=== PATIENT | female | born 1985 | race African-American/Black ===

== ENCOUNTER 2016-10-27 10:18 | Inpatient (IN) | payer MEDICAID ==
[2016-10-27] MEDS ORDERED: PEPCID 20 MG IV PREMIX* 20 MG/50 ML BAG IV SCH (11:00)
[2016-10-27] MEDS: PROTONIX TAB 40 MG PO SCH (11:20)
[2016-10-27] MEDS: NS 1000 ML 1,000 ML IV SCH ×2 (11:20→18:45)
[2016-10-27] MEDS: DILAUDID INJ IVP PRN ×3 (11:21→19:37)
[2016-10-27 11:34] LABS: BASOPHILS # (AUTO) 0.1 X10^3/uL (0.0-0.1); BASOPHILS % (AUTO) 0.5 % (0.2-1.0); EOSINOPHILS % (AUTO) 0.2 % (0.9-2.9); HEMATOCRIT 36.3 % (36.0-47.0); HEMOGLOBIN 12.2 g/dL (12.0-16.0); LYMPHOCYTES # (AUTO) 1.5 X10^3/uL (1.3-2.9); LYMPHOCYTES % (AUTO) 11.1 % (21.0-51.0); MEAN CORPUSCULAR HEMOGLOBIN 28.3 pg (27.0-34.0); MEAN CORPUSCULAR HGB CONC 33.6 g/dL (33.0-35.0); MEAN CORPUSCULAR VOLUME 84.3 fL (80.0-100.0); MEAN PLATELET VOLUME 9.6 fL (7.4-11.0); MONOCYTES # (AUTO) 0.4 x10^3/uL (0.3-0.8); MONOCYTES % (AUTO) 2.8 % (0.0-13.0); NEUTROPHILS # (AUTO) 11.7 x10^3/uL (2.2-4.8); NEUTROPHILS % (AUTO) 85.4 % (42.0-75.0); PLATELET COUNT 339 X10^3/uL (150.0-450.0); RED BLOOD COUNT 4.31 X10^6/uL (3.5-5.4); RED CELL DISTRIBUTION WIDTH 14.4 % (11.6-16.5); WHITE BLOOD COUNT 13.6 X10^3/uL (3.6-10.0)
[2016-10-27 11:46] LABS: ALANINE AMINOTRANSFERASE 36 Units/L (12-78); ALKALINE PHOSPHATASE 123 Units/L (46-116); AMYLASE 89 Units/L (25-115); ASPARTATE AMINO TRANSFERASE 15 Units/L (15-37); BLOOD UREA NITROGEN 37 mg/dL (7-18); CALCIUM 10.1 mg/dL (8.5-10.1); CARBON DIOXIDE 35.2 mmol/L (21-32); CHLORIDE 95 mmol/L (98-107); COR NA(FOR HYPERGLY) 141 mmol/L (136-145); CREATININE 2.26 mg/dL (0.55-1.02); GLUCOSE 389 mg/dL (65-99); LIPASE 415 Units/L (73-393); SODIUM 134 mmol/L (136-145); TOTAL PROTEIN 8.8 g/dL (6.4-8.2); eGFR BLACK RACES 32 (>60); eGFR NON BLACK RACES 27 (>60)
[2016-10-27 11:50] VITALS: BMI 31.5
[2016-10-27 12:05] LABS: HEMOGLOBIN A1C 8.9 % (4.5-6.2)
[2016-10-27] MEDS: HumuLIN R SC PRN ×3 (12:19→21:08)
[2016-10-27] MEDS: ZOFRAN INJ 4 MG VIAL IVP PRN (15:30)
[2016-10-27 18:34] LABS: BILIRUBIN,URINE NEGATIVE (NEGATIVE); BLOOD/HEMOGLOBIN,URINE 5+ (NEGATIVE); GLUCOSE, URINE 3+ (NEGATIVE); KETONES,URINE NEGATIVE (NEGATIVE); LEUKOCYTE ESTERASE ,URINE 2+ (NEGATIVE); NITRITES,URINE NEGATIVE (NEGATIVE); PROTEIN,URINE 3+ (NEGATIVE); UROBILINOGEN,URINE NORMAL (NORMAL)
[2016-10-27 18:44] LABS: APPEARANCE,URINE SLIGHTLY HAZY (CLEAR); BACTERIA,URINE TRACE /HPF (NEGATIVE); COLOR,URINE BLOODY (YELLOW); RBC,URINE TNTC /HPF (NEGATIVE); SQUAMOUS EPITHELIAL CELL,UR FEW /HPF (NEGATIVE)
[2016-10-28] MEDS: ZOFRAN INJ 4 MG VIAL IVP PRN
[2016-10-28] MEDS: NS 1000 ML 1,000 ML IV SCH ×4 (01:47→23:50)
[2016-10-28] MEDS: DILAUDID INJ IVP PRN ×6 (03:51→23:51)
[2016-10-28] MEDS: HumuLIN R SC PRN ×2 (06:01→11:53)
[2016-10-28] MEDS: PROTONIX TAB 40 MG PO SCH (08:05)
[2016-10-28] MEDS: PEPCID 20 MG IV PREMIX* 20 MG/50 ML BAG IV SCH (08:05)
[2016-10-28 11:13] LABS: BASOPHILS # (AUTO) 0.2 X10^3/uL (0.0-0.1); BASOPHILS % (AUTO) 1.4 % (0.2-1.0); EOSINOPHILS # (AUTO) 0.4 x10^3/uL (0.0-0.2); EOSINOPHILS % (AUTO) 3.2 % (0.9-2.9); HEMATOCRIT 36.2 % (36.0-47.0); HEMOGLOBIN 12.4 g/dL (12.0-16.0); LYMPHOCYTES # (AUTO) 3.3 X10^3/uL (1.3-2.9); LYMPHOCYTES % (AUTO) 29.1 % (21.0-51.0); MEAN CORPUSCULAR HEMOGLOBIN 29.2 pg (27.0-34.0); MEAN CORPUSCULAR HGB CONC 34.3 g/dL (33.0-35.0); MEAN CORPUSCULAR VOLUME 85.2 fL (80.0-100.0); MEAN PLATELET VOLUME 9.4 fL (7.4-11.0); MONOCYTES # (AUTO) 0.5 x10^3/uL (0.3-0.8); MONOCYTES % (AUTO) 4.5 % (0.0-13.0); NEUTROPHILS # (AUTO) 6.9 x10^3/uL (2.2-4.8); NEUTROPHILS % (AUTO) 61.8 % (42.0-75.0); PLATELET COUNT 323 X10^3/uL (150.0-450.0); RED BLOOD COUNT 4.24 X10^6/uL (3.5-5.4); RED CELL DISTRIBUTION WIDTH 14.4 % (11.6-16.5); WHITE BLOOD COUNT 11.2 X10^3/uL (3.6-10.0)
[2016-10-28 11:16] LABS: ALANINE AMINOTRANSFERASE 35 Units/L (12-78); ALBUMIN 3.9 g/dL (3.4-5.0); ALKALINE PHOSPHATASE 117 Units/L (46-116); ASPARTATE AMINO TRANSFERASE 19 Units/L (15-37); BLOOD UREA NITROGEN 23 mg/dL (7-18); CALCIUM 9.8 mg/dL (8.5-10.1); CARBON DIOXIDE 28.4 mmol/L (21-32); CHLORIDE 99 mmol/L (98-107); COR NA(FOR HYPERGLY) 137 mmol/L (136-145); CREATININE 1.75 mg/dL (0.55-1.02); GLUCOSE 181 mg/dL (65-99); SODIUM 135 mmol/L (136-145); TOTAL PROTEIN 8.7 g/dL (6.4-8.2); eGFR BLACK RACES 43 (>60); eGFR NON BLACK RACES 36 (>60)
[2016-10-28] MEDS ORDERED: NORCO 10/325 TAB PO PRN ×3 (11:37→11:42)
[2016-10-28] MEDS ORDERED: PATIENT'S HOME MEDICATION (Ondansetron [Ondansetron Odt] 4 MG) PO PRN (11:37)
[2016-10-28] MEDS ORDERED: ZOFRAN TAB 4 MG PO PRN (11:42)
[2016-10-28] MEDS ORDERED: XANAX PO PRN (11:42)
[2016-10-28] MEDS ORDERED: PATIENT'S HOME MEDICATION (Alprazolam [Alprazolam] 1 MG) PO SCH (11:45)
[2016-10-28] MEDS ORDERED: [UNRECOGNIZED DRUG - REMARK] PO SCH (11:45)
[2016-10-28] MEDS: ZyrTEC TAB 10 MG PO SCH (11:59)
[2016-10-28] MEDS: ZESTRIL TAB 40 MG PO SCH (11:59)
[2016-10-28] MEDS ORDERED: LEVEMIR SC SCH (12:00)
[2016-10-28] MEDS ORDERED: ZANTAC PO SCH (12:00)
--- NOTE | 2016-10-28 17:44 | DR.H&P ---
H&P - History & Physical for Day of: H&P Date: 10/28/16 - Chief Complaint Chief Complaint: N/V ABDOMINAL PAIN, ELEVATED BLOOD SUGAR - Allergies Allergies/Adverse Reactions: Allergies Allergy/AdvReac Type Severity Reaction Status Date / Time Ceftazidime [From Fortaz] Allergy Verified 10/27/16 11:04 Morphine Allergy Verified 10/27/16 11:04 - History of Present Illness History of Present Illness: 31BF ADMITTED FROM DR OSVALDO PALOMINO OFFICE WITH CO ABDOMINAL PAIN AND N/V. PT HAS ELEVATED GLUCOSE. PT IS NON COMPLIANT DIABETIC WITH HX GERD, GASTROPARESIS. PLAN TO ADMIT, IV HYDRATION AND BS CONTROL. WILL REPEAT AM LABS. - Past Medical History Past Medical History: Diabetes, GERD, Hypertension Additional Medical History: MORBID OBESITY - Past Surgical History Surgical History: Cholecystectomy, Hysterectomy, Other - Family History Family Medical History: Diabetes Mellitus, Hypertension - Social History Does patient currently use any type of tobacco product: No Have you used tobacco products in the last 12 months: No Type of Tobacco Use: None Does any household member use tobacco: No Alcohol Use: None Drug Use: None - Medications Home Medications: Alprazolam 1 mg PO BID 10/27/16 [History Confirmed 10/27/16] Cetirizine HCl [All Day Allergy] 10 mg PO DAILY 10/27/16 [History Confirmed 05/03] Hydrocodone-Acet 10/325 mg [[place] 10/325 Tab] 1 tab PO BID PRN 10/27/16 [ History Confirmed 10/27/16] Insulin Detemir (Levemir) [LEVEMIR INSULIN *] 100 units SUBCUT BID 10/27/16 [ History Confirmed 10/27/16] Lisinopril 40 mg PO DAILY 10/27/16 [History Confirmed 10/27/16] Ondansetron [Ondansetron Odt] 4 mg PO Q6H PRN 10/27/16 [History Confirmed ] Ranitidine HCl [Ranitidine [address]] 300 mg PO BID 10/27/16 [History Confirmed 10/27/16] Zolpidem Tartrate 10 mg PO HS 10/27/16 [History Confirmed 10/27/16] - Review of Systems Constitutional: Weakness Eyes: No Symptoms Reported ENT: No Symptoms Reported Respiratory: No Symptoms Reported Cardiovascular: No Symptoms Reported Gastrointestinal: Nausea, Abdominal Pain Genitourinary: No Symptoms Reported Musculoskeletal: No Symptoms Reported Skin: No Symptoms Reported Neurological: No Symptoms Reported - Physical Exam Vital Signs: Temperature 97.9 F Pulse Rate [Right Brachial] 100 Pulse Rate [Bilateral Radial] 103 Respiratory Rate 20 Blood Pressure [Right Arm] 176/99 Blood Pressure [Left Arm] 154/84 O2 Sat by Pulse Oximetry 99 Oriented: Normal Eyes: Normal Ear: Normal Nose: Normal Throat: Normal Respiratory: Clear Throughout Cardiovascular: Normal : Normal Auscultation: Bowel Sounds: Normal Tenderness: Epigastric Skin: Normal Musculoskeletal: Normal Psychiatric: Normal Speech Pattern: Clear, Appropriate - Assessment/Plan (1) Abdominal pain Qualifiers: Abdominal location: A Status: Acute Plan: ADMIT, IV HYDRATION, BLOOD SUGAR CONTROL. PPI THERAPY, NAUSEA CONTROL. REPEAT AM LABS (2) Uncontrolled diabetes mellitus Qualifiers: Diabetes mellitus type: D Diabetes mellitus complication status: D Diabetes mellitus complication detail: D Diabetic retinopathy severity: D Proliferative retinopathy type: P Diabetes mellitus macular edema: D Diabetes mellitus long term care pharmacist insulin use: D Laterality: L Chronic kidney disease stage: C Status: Acute (3) Nausea & vomiting Qualifiers: Vomiting type: V Vomiting Intractability: V Status: Acute
--- NOTE | 2016-10-28 17:47 | PCM.PROG ---
Progress Note - Progress Note for Day of Date: 10/28/16 - Subjective Subjective: CONTINUE CO EPIGASTRIC PAIN AND NAUSEA. NPO DUE TO MILD PANCREATITIS, PAIN AND NAUSEA CONTROL. REPEAT AM LABS - Past Medical Family Social History Past Med/Fam/Surg Hx: No changes since H&P Allergies: Allergies Ceftazidime [From Fortaz] Allergy (Verified 10/27/16 11:04) Morphine Allergy (Verified 10/27/16 11:04) - Review of Systems ROS: No change since H&P - Vital Signs and I&O's Vital Signs: Temperature 97.9 F Pulse Rate [Right Brachial] 100 Pulse Rate [Bilateral Radial] 103 Respiratory Rate 20 Blood Pressure [Right Arm] 176/99 Blood Pressure [Left Arm] 154/84 O2 Sat by Pulse Oximetry 99 Intake and Output: Intake & Output 10/26/16 10/27/16 10/28/16 10/29/16 11:59 11:59 11:59 11:59 Intake Total 4215 1380 Balance 4215 1380 - Physical Exam Oriented: Normal Eyes: Normal Ear: Normal Nose: Normal Throat: Normal Cardiovascular: Normal : Normal Auscultation: Bowel Sounds: Normal Tenderness: Epigastric Skin: Normal Musculoskeletal: Normal Psychiatric: Normal Speech Pattern: Clear, Appropriate - Laboratory and Diagnostics Result Diagrams: 10/28/16 11:00 10/28/16 11:00 Labs: 10/27/16 18:26 Urine,Clean Catch Urine Culture - Preliminary Laboratory WBC 11.2 X10^3/uL (3.6-10.0) H 10/28/16 11:00 RBC 4.24 X10^6/uL (3.5-5.4) 10/28/16 11:00 Hgb 12.4 g/dL (12.0-16.0) 10/28/16 11:00 Hct 36.2 % (36.0-47.0) 10/28/16 11:00 MCV 85.2 fL (80.0-100.0) 10/28/16 11:00 MCH 29.2 pg (27.0-34.0) 10/28/16 11:00 MCHC 34.3 g/dL (33.0-35.0) 10/28/16 11:00 RDW 14.4 % (11.6-16.5) 10/28/16 11:00 Plt Count 323 X10^3/uL (150.0-450.0) 10/28/16 11:00 MPV 9.4 fL (7.4-11.0) 10/28/16 11:00 Neut % 61.8 % (42.0-75.0) 10/28/16 11:00 Lymph % 29.1 % (21.0-51.0) 10/28/16 11:00 [place] % 4.5 % (0.0-13.0) 10/28/16 11:00 Eos % 3.2 % (0.9-2.9) H 10/28/16 11:00 Baso % 1.4 % (0.2-1.0) H 10/28/16 11:00 Neut # 6.9 x10^3/uL (2.2-4.8) H 10/28/16 11:00 Lymph # 3.3 X10^3/uL (1.3-2.9) H 10/28/16 11:00 [place] # 0.5 x10^3/uL (0.3-0.8) 10/28/16 11:00 Eos # 0.4 x10^3/uL (0.0-0.2) H 10/28/16 11:00 Baso # 0.2 X10^3/uL (0.0-0.1) H 10/28/16 11:00 Absolute Nucleated RBC 0.0 /100WBC 10/28/16 11:00 Sodium 135 mmol/L (136-145) L 10/28/16 11:00 Corrected Sodium 137 mmol/L (136-145) 10/28/16 11:00 Potassium 4.0 mmol/L (3.5-5.1) 10/28/16 11:00 Chloride 99 mmol/L (98-107) 10/28/16 11:00 Carbon Dioxide 28.4 mmol/L (21-32) 10/28/16 11:00 BUN 23 mg/dL (7-18) H 10/28/16 11:00 Creatinine 1.75 mg/dL (0.55-1.02) H 10/28/16 11:00 Est GFR (MDRD) Af Amer 43 (>60) L 10/28/16 11:00 Est GFR (MDRD) Non-Af 36 (>60) L 10/28/16 11:00 Glucose 181 mg/dL (65-99) H 10/28/16 11:00 Hemoglobin A1c 8.9 % (4.5-6.2) H 10/27/16 11:23 Calcium 9.8 mg/dL (8.5-10.1) 10/28/16 11:00 Corrected Calcium TNP 10/28/16 11:00 Total Bilirubin 0.40 mg/dL (0.2-1.0) 10/28/16 11:00 AST 19 Units/L (15-37) 10/28/16 11:00 ALT 35 Units/L (12-78) 10/28/16 11:00 Alkaline Phosphatase 117 Units/L (46-116) H 10/28/16 11:00 Total Protein 8.7 g/dL (6.4-8.2) H 10/28/16 11:00 Albumin 3.9 g/dL (3.4-5.0) 10/28/16 11:00 Globulin 4.8 g/dL (2.5-4.5) H 10/28/16 11:00 Albumin/Globulin Ratio 0.8 Ratio (1.1-2.1) L 10/28/16 11:00 Amylase 89 Units/L (25-115) 10/27/16 11:23 Lipase 415 Units/L (73-393) H 10/27/16 11:23 Specimen Type Clean catch urine 10/27/16 18:26 Urine Color Bloody (YELLOW) 10/27/16 18:26 Urine Appearance Slightly hazy (CLEAR) 10/27/16 18:26 Urine pH 8.0 (5.0 - 8.0) 10/27/16 18:26 Ur Specific [place] 1.015 (1.000-1.030) 10/27/16 18:26 Urine Protein 3+ (NEGATIVE) 10/27/16 18:26 Urine Glucose (UA) 3+ (NEGATIVE) 10/27/16 18:26 Urine Ketones Negative (NEGATIVE) 10/27/16 18:26 Urine Occult Blood 5+ (NEGATIVE) 10/27/16 18:26 Urine Nitrite Negative (NEGATIVE) 10/27/16 18:26 Urine Bilirubin Negative (NEGATIVE) 10/27/16 18:26 Urine Urobilinogen Normal (NORMAL) 10/27/16 18:26 Ur Leukocyte Esterase 2+ (NEGATIVE) 10/27/16 18:26 Urine RBC Tntc /HPF (NEGATIVE) 10/27/16 18:26 Urine WBC 3-4 /HPF (NEGATIVE) 10/27/16 18:26 Ur Squamous Epith Cells Few /HPF (NEGATIVE) 10/27/16 18:26 Urine Bacteria Trace /HPF (NEGATIVE) 10/27/16 18:26 Ur Culture Indicated? Yes/culture set up 10/27/16 18:26 - Plan (1) Abdominal pain Status: Acute Qualifiers: Abdominal location: A Plan: ADMIT, IV HYDRATION, BLOOD SUGAR CONTROL. PPI THERAPY, NAUSEA CONTROL. REPEAT AM LABS (2) Uncontrolled diabetes mellitus Status: Acute Qualifiers: Diabetes mellitus type: D Diabetes mellitus complication status: D Diabetes mellitus complication detail: D Diabetic retinopathy severity: D Proliferative retinopathy type: P Diabetes mellitus macular edema: D Diabetes mellitus custodial insulin use: D Laterality: L Chronic kidney disease stage: C (3) Nausea & vomiting Status: Acute Qualifiers: Vomiting type: V Vomiting Intractability: V Plan: NPO, IN HYDRATION. BS CONTROL, REPEAT AM LABS (4) Acute pancreatitis Status: Acute Qualifiers: Pancreatitis type: P Acute pancreatitis complication: A
[2016-10-28] MEDS ORDERED: SNACK - Diabetic Appropriate PO SCH ×2 (20:00)
[2016-10-28] MEDS ORDERED: AMBIEN PO SCH (21:00)
[2016-10-29] MEDS: NS 1000 ML 1,000 ML IV SCH (05:43)
[2016-10-29] MEDS: DILAUDID INJ IVP PRN (05:52)
--- NOTE | 2016-10-29 06:37 | RAD ---
HISTORY: Abdominal pain common nausea, vomiting Study: Acute abdominal series Comparison: none Findings: The trachea is midline. The cardiac silhouette is unremarkable. The lungs are clear without focal infiltrate or effusion. The bony thorax is unremarkable. There is a port present on the left. Flat plate and upright evaluation of the abdomen demonstrates a normal bowel gas pattern. No pneumop eritoneum is identified.. No pathological soft tissue mass or calcification can be observed. The b roberto structures are grossly intact. IMPRESSION: 1. No acute cardiopulmonary disease. 2. No evidence for acute abdominal pathology identified. Reported By:
[2016-10-29 06:45] LABS: CALCIUM 8.6 mg/dL (8.5-10.1); CARBON DIOXIDE 26.1 mmol/L (21-32); COR CA(FOR HYPOALB) 9.4 mg/dL (8.5-10.1); CREATININE 1.44 mg/dL (0.55-1.02); TOTAL PROTEIN 6.9 g/dL (6.4-8.2)
[2016-10-29 06:54] LABS: BASOPHILS # (AUTO) 0.1 X10^3/uL (0.0-0.1); BASOPHILS % (AUTO) 0.6 % (0.2-1.0); EOSINOPHILS # (AUTO) 0.4 x10^3/uL (0.0-0.2); EOSINOPHILS % (AUTO) 3.9 % (0.9-2.9); HEMOGLOBIN 10.3 g/dL (12.0-16.0); LYMPHOCYTES # (AUTO) 3.9 X10^3/uL (1.3-2.9); LYMPHOCYTES % (AUTO) 36.1 % (21.0-51.0); MEAN CORPUSCULAR HEMOGLOBIN 28.3 pg (27.0-34.0); MEAN CORPUSCULAR HGB CONC 33.4 g/dL (33.0-35.0); MEAN CORPUSCULAR VOLUME 84.7 fL (80.0-100.0); MEAN PLATELET VOLUME 9.7 fL (7.4-11.0); MONOCYTES # (AUTO) 0.7 x10^3/uL (0.3-0.8); MONOCYTES % (AUTO) 6.6 % (0.0-13.0); NEUTROPHILS # (AUTO) 5.7 x10^3/uL (2.2-4.8); NEUTROPHILS % (AUTO) 52.8 % (42.0-75.0); PLATELET COUNT 299 X10^3/uL (150.0-450.0); RED BLOOD COUNT 3.66 X10^6/uL (3.5-5.4); RED CELL DISTRIBUTION WIDTH 14.2 % (11.6-16.5); WHITE BLOOD COUNT 10.8 X10^3/uL (3.6-10.0)
[2016-10-29] MEDS ORDERED: LEVEMIR SC SCH ×2 (09:00)
[2016-10-29] MEDS: ZESTRIL TAB 40 MG PO SCH (10:22)
[2016-10-29] MEDS: PROTONIX TAB 40 MG PO SCH (10:22)
[2016-10-29] MEDS: ZyrTEC TAB 10 MG PO SCH (10:23)
[2016-10-29] MEDS: PEPCID 20 MG IV PREMIX* 20 MG/50 ML BAG IV SCH (10:30)
[2016-10-29 12:04] VITALS: BP 140/81
[2016-10-29] MEDS: HumuLIN R SC PRN (12:24)
== END 2016-10-29 12:30 | disposition left against medical advice (07) | DRG 391 ==
LOC: MED/SURG 10:18 → OBSVTOIN 10-28 09:00
PROVIDERS: ADMIT Internal Medicine; ATTEND Internal Medicine
DX: R11.2 Nausea with vomiting, unspecified (principal); R10.84 Generalized abdominal pain; I10 Essential (primary) hypertension; K21.9 Gastro-esophageal reflux disease without esophagitis; K31.84 Gastroparesis; K85.80 Other acute pancreatitis without necrosis or infection; R94.4 Abnormal results of kidney function studies; E11.65 Type 2 diabetes mellitus with hyperglycemia
CPT/HCPCS: 36415; 74022; 80053; 81001; 82150; 83036; 83690; 85025; 87086; A4222; S0028; 1956; G0378; J1815; J2405

== ENCOUNTER 2017-03-27 15:12 | Inpatient (IN) | payer MEDICAID ==
[2017-03-27] MEDS ORDERED: NS 1000 ML 1,000 ML IV ONE (15:26)
[2017-03-27] MEDS ORDERED: ZOFRAN INJ 4 MG VIAL IVP ONE (15:27)
[2017-03-27] MEDS ORDERED: DILAUDID INJ IVP ONE ×2 (15:28→17:04)
[2017-03-27] MEDS ORDERED: PROTAMINE SULFATE IVP ONE (15:29)
[2017-03-27] MEDS ORDERED: PROTONIX INJ 40 MG VIAL IVP ONE (15:30)
[2017-03-27] MEDS ORDERED: DILAUDID INJ ONE ×2 (15:31→17:08)
[2017-03-27] MEDS ORDERED: ZOFRAN INJ 4 MG VIAL ONE (15:32)
[2017-03-27] MEDS ORDERED: NS 1000 ML 1,000 ML ONE (15:32)
--- NOTE | 2017-03-27 15:38 | DR.GENAD ---
HPI - PCP Primary Care Physician: NFD - Complaint/Symptoms Chief Complaint Doctors Comments: Patietn with a history of gastroparesis. She states that she is unable to tolerate anything due to the vomiting. She denies fever or diarrhea. Onset of the stomach pain this AM. The pain is sharp, crampy, made worse with PO intake, very severe. Chief Complaint:: PT C/O ABD PAIN WITH N/V THAT STARTED THIS AM. PT STATES SHE HAS THROWN UP APPROX 20 TIMES - Source History Provided: Patient - Mode of Arrival Mode of Arrival: Ambulatory - Timing Onset of Chief Complaint: 03/27/17 PMH - PMH Past Medical History: Yes Past Medical History: Diabetes, GERD, Hypertension Past Medical History Comment: GASTROPARESIS Past Surgical History: Yes Surgical History: Cholecystectomy, Hysterectomy, Other Past Surgical History Comment: LEG - Family History History of Family Medical Conditions: Yes Family Medical History: Diabetes Mellitus, Hypertension - Social History Does patient currently use any type of tobacco product: No Have you used tobacco products in the last 12 months: No Type of Tobacco Use: None Alcohol Use: None Do you use any recreational Drugs:: No Lives With: Family Lives Where: Home - infectious screening In the last 2 months have you had wt loss of >10#?: NO Have you had fever, night sweats or hemotysis?: No Have you traveled outside the country in the last 6 months?: No Isolation: Standard ROS - Review of Systems Constitutional: negative: Diaphoresis Eyes: No Symptoms Reported ENTM: No Symptoms Reported Respiratoy: No Symptoms Reported Cardiovascular: No Symptoms Reported Gastrointestinal/Abdominal: No Symptoms Reported Genitourinary: No Symptoms Reported Neurological: No Symptoms Reported Musculoskeletal: No Symptoms Reported Integumentary: No Symptoms Reported Hematologic/Lymphatic: No Symptoms Reported Endocrine: No Symptoms Reported Psychiatric: No Symptoms Reported All Other Systems: Reviewed and Negative PE - Vital Signs Vitals: Temperature 98.2 F Pulse Rate 134 Respiratory Rate 22 Blood Pressure [Right Arm] 140/81 Blood Pressure [Left Arm] 139/68 Blood Pressure 123/99 O2 Sat by Pulse Oximetry 99 - General Limitations: No Limitations General Appearance: Alert, In No Apparent Distress, In Distress (abdominal pain) - Head Head Exam: Normal Inspection, Atraumatic - Eyes Eye exam: Normal Appearance, PERRL, EOMI - ENT ENT Exam: Normal Exam External Ear Exam: Normal External Inspection TM/Canal Exam: Bilateral Normal Nose Exam: Normal Nose Exam Mouth Exam: Normal Inspection Throat Exam: Normal Inspection - Neck Neck Exam: Normal Inspection, Full ROM - Chest Chest Inspection: Normal Inspection, Symmetric Chest Wall Rise - Respiratory Respiratory Exam: Normal Lung Sounds Bilat Respiratory Exam: Bilateral Clear to Auscultation - Cardiovascular Cardiovascular Exam: Regular Rate, Normal Rhythm - Abdominal Exam Abdominal Exam: Normal Inspection, Normal Bowel Sounds, Soft Abdominal Tenderness: Diffuse - Extremities Extremities Exam: Normal Inspection, Full ROM - Back Back Exam: Normal Inspection, Full ROM - Neurologic Neurological Exam: Alert, Oriented X3, CN II-XII Intact - Psychiatric Psychiatric Exam: Normal Affect, Normal Mood - Skin Skin Exam: Warm, Dry, Intact Course - Reevaluation 1st: Improved - Consultation Called: 16:40 (Dr Sherwood agreed to admit for further treamtnet ) - Education/Counseling Educated On: Treatment, Prognosis ROR - Labs Reviewed Result Diagrams: 03/27/17 15:55 03/27/17 15:55 Laboratory: WBC 9.7 X10^3/uL (3.6-10.0) 03/27/17 15:55 RBC 4.09 X10^6/uL (3.5-5.4) 03/27/17 15:55 Hgb 11.3 g/dL (12.0-16.0) L 03/27/17 15:55 Hct 34.0 % (36.0-47.0) L 03/27/17 15:55 MCV 83.0 fL (80.0-100.0) 03/27/17 15:55 MCH 27.7 pg (27.0-34.0) 03/27/17 15:55 MCHC 33.4 g/dL (33.0-35.0) 03/27/17 15:55 RDW 14.6 % (11.6-16.5) 03/27/17 15:55 Plt Count 356 X10^3/uL (150.0-450.0) 03/27/17 15:55 MPV 8.8 fL (7.4-11.0) 03/27/17 15:55 Neut % 64.0 % (42.0-75.0) 03/27/17 15:55 Lymph % 26.6 % (21.0-51.0) 03/27/17 15:55 [place] % 6.3 % (0.0-13.0) 03/27/17 15:55 Eos % 2.3 % (0.9-2.9) 03/27/17 15:55 Baso % 0.8 % (0.2-1.0) 03/27/17 15:55 Neut # 6.2 x10^3/uL (2.2-4.8) H 03/27/17 15:55 Lymph # 2.6 X10^3/uL (1.3-2.9) 03/27/17 15:55 [place] # 0.6 x10^3/uL (0.3-0.8) 03/27/17 15:55 Eos # 0.2 x10^3/uL (0.0-0.2) 03/27/17 15:55 Baso # 0.1 X10^3/uL (0.0-0.1) 03/27/17 15:55 Absolute Nucleated RBC 0.0 /100WBC 03/27/17 15:55 Sodium 140 mmol/L (136-145) 03/27/17 15:55 Corrected Sodium 143 mmol/L (136-145) 03/27/17 15:55 Potassium 3.7 mmol/L (3.5-5.1) 03/27/17 15:55 Chloride 102 mmol/L (98-107) 03/27/17 15:55 Carbon Dioxide 27.6 mmol/L (21-32) 03/27/17 15:55 BUN 19 mg/dL (7-18) H 03/27/17 15:55 Creatinine 1.71 mg/dL (0.55-1.02) H 03/27/17 15:55 Est GFR (MDRD) Af Amer 44 (>60) L 03/27/17 15:55 Est GFR (MDRD) Non-Af 37 (>60) L 03/27/17 15:55 Glucose 237 mg/dL (65-99) H 03/27/17 15:55 Calcium 9.5 mg/dL (8.5-10.1) 03/27/17 15:55 Corrected Calcium 10.2 mg/dL (8.5-10.1) H 03/27/17 15:55 Total Bilirubin 0.20 mg/dL (0.2-1.0) 03/27/17 15:55 AST 13 Units/L (15-37) L 03/27/17 15:55 ALT 15 Units/L (12-78) 03/27/17 15:55 Alkaline Phosphatase 135 Units/L (46-116) H 03/27/17 15:55 C-Reactive Protein 8.10 mg/L (0-3.0) H 03/27/17 15:55 Total Protein 8.5 g/dL (6.4-8.2) H 03/27/17 15:55 Albumin 3.1 g/dL (3.4-5.0) L 03/27/17 15:55 Globulin 5.4 g/dL (2.5-4.5) H 03/27/17 15:55 Albumin/Globulin Ratio 0.6 Ratio (1.1-2.1) L 03/27/17 15:55 Amylase 254 Units/L (25-115) H 03/27/17 15:42 Lipase 1772 Units/L (73-393) H 03/27/17 15:42 H. pylori IgG Antibody Negative (NEGATIVE) 03/27/17 15:55 - XRAY XRAY Interpreted by: Radiologist (Abd/Pelv: negative CT of the abdomen and pelvis) - Diagnosis Discharge Problem: Gastroparesis diabeticorum Pancreatitis Qualifiers: Chronicity: chronic Pancreatitis type: unspecified pancreatitis type Qualified Code(s): K86.1 - Other chronic pancreatitis - Discharge Plan Condition: Stable - Follow ups/Referrals Follow ups/Referrals: NFD,None [Primary Care Provider] - 3 days - Instructions
[2017-03-27] MEDS ORDERED: PROTONIX INJ 40 MG VIAL ONE (15:42)
[2017-03-27 16:15] LABS: ALBUMIN 3.1 g/dL (3.4-5.0); C-REACTIVE PROTEIN 8.1 mg/L (0-3.0); CALCIUM 9.5 mg/dL (8.5-10.1); CARBON DIOXIDE 27.6 mmol/L (21-32); COR CA(FOR HYPOALB) 10.2 mg/dL (8.5-10.1); CREATININE 1.71 mg/dL (0.55-1.02); TOTAL PROTEIN 8.5 g/dL (6.4-8.2)
[2017-03-27 16:20] LABS: BASOPHILS # (AUTO) 0.1 X10^3/uL (0.0-0.1); BASOPHILS % (AUTO) 0.8 % (0.2-1.0); EOSINOPHILS # (AUTO) 0.2 x10^3/uL (0.0-0.2); EOSINOPHILS % (AUTO) 2.3 % (0.9-2.9); HEMOGLOBIN 11.3 g/dL (12.0-16.0); LYMPHOCYTES # (AUTO) 2.6 X10^3/uL (1.3-2.9); LYMPHOCYTES % (AUTO) 26.6 % (21.0-51.0); MEAN CORPUSCULAR HEMOGLOBIN 27.7 pg (27.0-34.0); MEAN CORPUSCULAR HGB CONC 33.4 g/dL (33.0-35.0); MEAN PLATELET VOLUME 8.8 fL (7.4-11.0); MONOCYTES # (AUTO) 0.6 x10^3/uL (0.3-0.8); MONOCYTES % (AUTO) 6.3 % (0.0-13.0); NEUTROPHILS # (AUTO) 6.2 x10^3/uL (2.2-4.8); PLATELET COUNT 356 X10^3/uL (150.0-450.0); RED BLOOD COUNT 4.09 X10^6/uL (3.5-5.4); RED CELL DISTRIBUTION WIDTH 14.6 % (11.6-16.5); WHITE BLOOD COUNT 9.7 X10^3/uL (3.6-10.0)
[2017-03-27 16:38] LABS: AMYLASE 254 Units/L (25-115)
[2017-03-27 16:39] LABS: LIPASE 1772 Units/L (73-393)
[2017-03-27] MEDS ORDERED: NS 100 ML IV 100 ML IV ONE (17:35)
--- NOTE | 2017-03-27 18:44 | CT ---
HISTORY: Nausea, vomiting, epigastric pain, history gastroparesis Study: CT abdomen and pelvis with contrast Comparison: None Technique: Multiple axial images of the abdomen and pelvis were obtained with IV contrast. Oral contrast was no t administered. Dose reduction techniques including Automated Exposure Control (AEC) and adjustment o f mA and kV were utilized. Findings: The visualized portions of the lung bases are clear. The liver, spleen, pancreas, kidneys, and adren al glands are unremarkable. The gallbladder is removed. No renal calculi or obstructive uropathy. No free intraperitoneal air. No evidence of intestinal obstruction or inflammation. Normal appendix. There is a trace amount of free fluid in the pelvis. The soft tissues and osseous structures are unremarkable. The vascular structures are within normal l imits for age. No pathologically enlarged lymph nodes are identified. The uterus and bladder are tommy sly unremarkable IMPRESSION: 1.Negative CT of the abdomen and pelvis. Reported By:
[2017-03-27] MEDS ORDERED: CATAPRES TAB 0.1 MG PO ONE (18:48)
[2017-03-27] MEDS ORDERED: HumuLIN R SUBCUT PRN (18:53)
[2017-03-27] MEDS ORDERED: PHENERGAN INJ 25 MG IV ONE (18:56)
[2017-03-27] MEDS ORDERED: PHENERGAN INJ 25 MG ONE (18:57)
[2017-03-27] MEDS ORDERED: NS 1000 ML 1,000 ML IV SCH (19:00)
[2017-03-27 19:06] LABS: BILIRUBIN,URINE NEGATIVE (NEGATIVE); BLOOD/HEMOGLOBIN,URINE 4+ (NEGATIVE); GLUCOSE, URINE 2+ (NEGATIVE); KETONES,URINE NEGATIVE (NEGATIVE); LEUKOCYTE ESTERASE ,URINE 2+ (NEGATIVE); NITRITES,URINE NEGATIVE (NEGATIVE); PROTEIN,URINE 3+ (NEGATIVE); UROBILINOGEN,URINE NORMAL (NORMAL)
[2017-03-27 19:16] LABS: APPEARANCE,URINE HAZY (CLEAR); BACTERIA,URINE TRACE /HPF (NEGATIVE); COLOR,URINE YELLOW (YELLOW); RBC,URINE 0-5 /HPF (NEGATIVE); SQUAMOUS EPITHELIAL CELL,UR RARE /HPF (NEGATIVE)
[2017-03-27] MEDS: DILAUDID INJ IVP PRN (20:12)
[2017-03-27] MEDS: PROTONIX INJ 40 MG VIAL 80 MG in NS 100 ML IV 80 ML IV SCH (20:13)
[2017-03-27] MEDS: KLONOPIN TAB 1 MG PO SCH (20:16)
[2017-03-27] MEDS: XANAX PO SCH (20:16)
[2017-03-27] MEDS: LANTUS SC SCH (20:25)
[2017-03-27] MEDS ORDERED: BENADRYL INJ 50 MG VIAL IVP ONE (20:30)
[2017-03-27] MEDS ORDERED: AMBIEN PO SCH (21:00)
[2017-03-27] MEDS ORDERED: REGLAN TAB 10 MG PO SCH (21:00)
[2017-03-27] MEDS ORDERED: PATIENT'S HOME MEDICATION (Alprazolam [Alprazolam] 1 MG) PO SCH (21:00)
[2017-03-27 22:57] VITALS: BMI 30.9
[2017-03-28] MEDS: ZOFRAN INJ 4 MG VIAL IVP PRN ×2 (00:17→08:49)
[2017-03-28] MEDS: DILAUDID INJ IVP PRN ×3 (00:17→08:49)
[2017-03-28 04:29] LABS: ABG ALLEN TEST POS; ABG BASE EXCESS 4.8 mmol/L (-2.0-2.0); ABG HCO3 30.9 mmol/L (22-26); FRACTIONATED INSPIRED OXYGEN 21
[2017-03-28] MEDS: PROTONIX INJ 40 MG VIAL 80 MG in NS 100 ML IV 80 ML IV SCH (06:09)
[2017-03-28 06:38] LABS: ALBUMIN 3.3 g/dL (3.4-5.0); CALCIUM 9.1 mg/dL (8.5-10.1); CARBON DIOXIDE 27.3 mmol/L (21-32); COR CA(FOR HYPOALB) 9.7 mg/dL (8.5-10.1); CREATININE 1.68 mg/dL (0.55-1.02); TOTAL PROTEIN 7.9 g/dL (6.4-8.2)
[2017-03-28 07:43] LABS: BASOPHILS # (AUTO) 0.1 X10^3/uL (0.0-0.1); EOSINOPHILS # (AUTO) 0.4 x10^3/uL (0.0-0.2); EOSINOPHILS % (AUTO) 2.8 % (0.9-2.9); HEMOGLOBIN 10.5 g/dL (12.0-16.0); RED CELL DISTRIBUTION WIDTH 14.7 % (11.6-16.5)
[2017-03-28 07:53] LABS: BASOPHILS % (AUTO) 0.6 % (0.2-1.0); LYMPHOCYTES # (AUTO) 2.7 X10^3/uL (1.3-2.9); LYMPHOCYTES % (AUTO) 20.2 % (21.0-51.0); MEAN CORPUSCULAR HEMOGLOBIN 27.2 pg (27.0-34.0); MEAN CORPUSCULAR HGB CONC 32.8 g/dL (33.0-35.0); MEAN CORPUSCULAR VOLUME 82.8 fL (80.0-100.0); MEAN PLATELET VOLUME 9.5 fL (7.4-11.0); MONOCYTES % (AUTO) 7.7 % (0.0-13.0); NEUTROPHILS # (AUTO) 9.2 x10^3/uL (2.2-4.8); NEUTROPHILS % (AUTO) 68.7 % (42.0-75.0); PLATELET COUNT 295 X10^3/uL (150.0-450.0); RED BLOOD COUNT 3.87 X10^6/uL (3.5-5.4); WHITE BLOOD COUNT 13.4 X10^3/uL (3.6-10.0)
[2017-03-28 08:00] LABS: PLATELET MORPHOLOGY COMMENT NORMAL (NORMAL)
[2017-03-28 08:17] VITALS: BP 151/70
[2017-03-28 08:47] LABS: AMYLASE 88 Units/L (25-115); LIPASE 213 Units/L (73-393)
[2017-03-28] MEDS: KLONOPIN TAB 1 MG PO SCH (08:48)
[2017-03-28] MEDS: XANAX PO SCH (08:48)
[2017-03-28] MEDS ORDERED: ZESTRIL TAB 10 MG PO SCH (09:00)
[2017-03-28] MEDS: LANTUS SC SCH (10:05)
--- NOTE | 2017-04-13 13:22 | DR.CARTERS ---
Short Stay Summary - Short Stay Summary for: Short Stay Summary for Date of:: 03/28/17 - Admission Date Date of Admission: 03/27/17 - Discharge Date Discharge Date: 03/28/17 - Admission Diagnoses (1) Acute pancreatitis Status: Acute (2) Gastroparesis Status: Acute - Hospital Course Hospital Course: is a 31 year old patient of who presented to the emergency room with complaints of abdominal pain, nausea, and vomiting. Patient reports that symptoms started early this morning and have progressively gotten worse. She reports vomiting approximately twenty times. She reports a medical history of gastroparesis and diabetes, but has been unable to tolerated medications by mouth due to vomiting. Patient describes pain as sharp and cramping. Pain is worse after PO intake. Patient reports she took Zofran, Reglan and Boaz at home with no relief in symptoms. On examination, heart rate is noted to be rapid. Lungs clear to auscultation bilaterally. Abdomen is round, soft, and noted with moderated, diffuse tenderness. Hyperactive bowel sounds are noted in all quadrants. On arrival to the ER, vitals were 98.2, 134, 22, 99% RA, 123/99. Labs and a CT were obtained. Abnormal lab values include the following: Hgb 11.3, Hct 34.0, Amylase 254, Lipase 1772, BUN 19, Creatinine 1.71, GFR af 44, GFR non 37, Glucose 237, Calcium 10.2, AST 13, Alk Phos 135, CRP 8.10, Total Protein 8.5, Albumin 3.1, Globulin 5.4, A/G Ratio 0.6. Urinalysis reports: Hazy, Protein 3+, Glucose 2+, Occult Blood 4+, Leuk Est 2+, RBC 0-5, WBC 5-7, Bacteria Trace. Abdomen/Pelvis CT reports: Negative CT of the abdomen and pelvis. She was given nausea and pain medication in the ER with only minor relief from pain noted. We admitted patient for further evaluation and treatment of diabetic gastroparesis and pancreatitis. We planned to hold her NPO and follow up with AM labs. Prior to morning rounds, patient requested to sign out AMA due to personal reasons. Patient was encouraged by staff to stay for treatment, but patient refused. Patient left AMA in stable condition with family with instructions to follow up with her primary care physician. - Discharge Medications Discharge Medications: Clonazepam [KLONOPIN TAB 1 MG *] 1 mg PO BID 03/27/17 [History] Insulin Glargine (Lantus) [LANTUS INSULIN 10 ML VIAL *] 90 units SC BID [History] Metoclopramide HCl [Reglan] 10 mg PO ACHS 03/27/17 [History] - Discharge Plan Disposition: 07 AGAINST MEDICAL ADVICE Condition: Stable - Follow up/Referrals Follow up/Referrals: NFD,None [Primary Care Provider] - 3 days - Instructions Instructions: Acute Pancreatitis
== END 2017-03-28 13:05 | disposition left against medical advice (07) | DRG 440 ==
LOC: ER 15:12 → MED/SURG 18:52
PROVIDERS: ADMIT Internal Medicine; ATTEND Internal Medicine
DX: K85.80 Other acute pancreatitis without necrosis or infection (principal); E11.43 Type 2 diabetes mellitus with diabetic autonomic (poly)neuropathy; K31.84 Gastroparesis; R10.84 Generalized abdominal pain; R11.2 Nausea with vomiting, unspecified; K21.9 Gastro-esophageal reflux disease without esophagitis; I10 Essential (primary) hypertension; B95.61 Methicillin susceptible Staphylococcus aureus infection as the cause of diseases classified elsewhere; D72.828 Other elevated white blood cell count; Z87.898 Personal history of other specified conditions
CPT/HCPCS: 36415; 36600; 74177; 80053; 81001; 81002; 82150; 82803; 83690; 83735; 85025; 86140; 86677; 87086; 87088; 87186; 94760; 96365; 96367; 96374; 96375; 99283; 99284; A4216; A4222; C9113; G0378; J0360; J1170; J1200; J1815; J2175; J2405; J2550; J2720; J2765; J3480

== ENCOUNTER 2017-03-31 08:13 | Emergency (ER) | payer MEDICAID ==
[2017-03-31 08:20] VITALS: BMI 30.7
[2017-03-31] MEDS ORDERED: APRESOLINE INJ 20 MG VIAL IVP ONE ×2 (08:26→09:19)
[2017-03-31] MEDS ORDERED: APRESOLINE INJ 20 MG VIAL ONE ×2 (08:28→09:24)
[2017-03-31] MEDS ORDERED: DILAUDID INJ ONE (08:40)
[2017-03-31] MEDS ORDERED: DILAUDID INJ IVP ONE (08:40)
[2017-03-31] MEDS ORDERED: PHENERGAN INJ 25 MG IV ONE (08:43)
[2017-03-31] MEDS ORDERED: PHENERGAN INJ 25 MG ONE (08:49)
--- NOTE | 2017-03-31 08:49 | DR.GENAD ---
HPI - PCP Primary Care Physician: omer - Complaint/Symptoms Chief Complaint Doctors Comments: Patient with a history of gastroparesis she was admitted to the hospital on last week; discharged s/p observation. She states that she has been vomiting past day atleast twenty times. Her pain is 10 /10, sharp and constant. Patient was also diagnosed with pancreatitis at last hospitalization. Chief Complaint:: pt c/o abd pain n/v - Source History Provided: Patient - Mode of Arrival Mode of Arrival: Wheelchair - Timing Onset of Chief Complaint: 03/30/17 PMH - PMH Past Medical History: Yes Past Medical History: Diabetes, GERD, Hypertension Past Surgical History: Yes Surgical History: Cholecystectomy, Hysterectomy, Other Past Surgical History Comment: donita richardsone - Family History History of Family Medical Conditions: Yes Family Medical History: Diabetes Mellitus, Hypertension - Social History Does patient currently use any type of tobacco product: No Have you used tobacco products in the last 12 months: No Type of Tobacco Use: None Does any household member use tobacco: No Alcohol Use: None Do you use any recreational Drugs:: No Lives With: Family Lives Where: Home - infectious screening In the last 2 months have you had wt loss of >10#?: NO Have you had fever, night sweats or hemotysis?: No Have you traveled outside the country in the last 6 months?: No Isolation: Standard ROS - Review of Systems Eyes: No Symptoms Reported ENTM: No Symptoms Reported Respiratoy: No Symptoms Reported Cardiovascular: No Symptoms Reported Gastrointestinal/Abdominal: No Symptoms Reported Genitourinary: No Symptoms Reported Neurological: Other (stomach pain) Musculoskeletal: No Symptoms Reported Integumentary: No Symptoms Reported Hematologic/Lymphatic: No Symptoms Reported Endocrine: No Symptoms Reported Psychiatric: No Symptoms Reported All Other Systems: Reviewed and Negative PE - Vital Signs Vitals: Temperature 97.6 F Pulse Rate [Left Brachial] 109 Pulse Rate 110 Respiratory Rate 22 Blood Pressure [Right Arm] 180/83 Blood Pressure [Left Arm] 180/84 Blood Pressure 236/108 O2 Sat by Pulse Oximetry 100 - General Limitations: No Limitations General Appearance: Alert - Head Head Exam: Normal Inspection, Atraumatic - Eyes Eye exam: Normal Appearance, PERRL, EOMI - ENT ENT Exam: Normal Exam External Ear Exam: Normal External Inspection TM/Canal Exam: Bilateral Normal Nose Exam: Normal Nose Exam Mouth Exam: Normal Inspection Throat Exam: Normal Inspection - Neck Neck Exam: Normal Inspection - Chest Chest Inspection: Normal Inspection - Respiratory Respiratory Exam: Normal Lung Sounds Bilat Respiratory Exam: Bilateral Clear to Auscultation - Cardiovascular Cardiovascular Exam: Regular Rate, Normal Rhythm - Abdominal Exam Abdominal Exam: Normal Inspection, Normal Bowel Sounds Abdominal Tenderness: negative: RUQ, RLQ, LUQ, LLQ, Epigastrium, Suprapubic, Diffuse, Mild, Moderate, Severe, Other - Extremities Extremities Exam: Normal Inspection, Full ROM - Back Back Exam: Normal Inspection - Neurologic Neurological Exam: Alert, Oriented X3, CN II-XII Intact - Skin Skin Exam: Warm, Dry, Intact Course - Reevaluation 1st: Improved - Consultation Called: 10:55 (Dr Auguste agreed to admit for further treatment) ROR - Labs Reviewed Result Diagrams: 03/31/17 08:58 03/31/17 08:58 Laboratory: WBC 12.1 X10^3/uL (3.6-10.0) H 03/31/17 08:58 RBC 3.88 X10^6/uL (3.5-5.4) 03/31/17 08:58 Hgb 10.5 g/dL (12.0-16.0) L 03/31/17 08:58 Hct 31.9 % (36.0-47.0) L 03/31/17 08:58 MCV 82.4 fL (80.0-100.0) 03/31/17 08:58 MCH 27.2 pg (27.0-34.0) 03/31/17 08:58 MCHC 33.0 g/dL (33.0-35.0) 03/31/17 08:58 RDW 14.5 % (11.6-16.5) 03/31/17 08:58 Plt Count 325 X10^3/uL (150.0-450.0) 03/31/17 08:58 MPV 8.5 fL (7.4-11.0) 03/31/17 08:58 Neut % 84.0 % (42.0-75.0) H 03/31/17 08:58 Lymph % 11.5 % (21.0-51.0) L 03/31/17 08:58 [place] % 3.0 % (0.0-13.0) 03/31/17 08:58 Eos % 1.0 % (0.9-2.9) 03/31/17 08:58 Baso % 0.5 % (0.2-1.0) 03/31/17 08:58 Neut # 10.1 x10^3/uL (2.2-4.8) H 03/31/17 08:58 Lymph # 1.4 X10^3/uL (1.3-2.9) 03/31/17 08:58 [place] # 0.4 x10^3/uL (0.3-0.8) 03/31/17 08:58 Eos # 0.1 x10^3/uL (0.0-0.2) 03/31/17 08:58 Baso # 0.1 X10^3/uL (0.0-0.1) 03/31/17 08:58 Absolute Nucleated RBC 0.0 /100WBC 03/31/17 08:58 Sodium 143 mmol/L (136-145) 03/31/17 08:58 Corrected Sodium 146 mmol/L (136-145) H 03/31/17 08:58 Potassium 3.3 mmol/L (3.5-5.1) L 03/31/17 08:58 Chloride 104 mmol/L (98-107) 03/31/17 08:58 Carbon Dioxide 28.7 mmol/L (21-32) 03/31/17 08:58 BUN 21 mg/dL (7-18) H 03/31/17 08:58 Creatinine 2.03 mg/dL (0.55-1.02) H 03/31/17 08:58 Est GFR (MDRD) Af Amer 37 (>60) L 03/31/17 08:58 Est GFR (MDRD) Non-Af 30 (>60) L 03/31/17 08:58 Glucose 229 mg/dL (65-99) H 03/31/17 08:58 Calcium 9.1 mg/dL (8.5-10.1) 03/31/17 08:58 Corrected Calcium 9.7 mg/dL (8.5-10.1) 03/31/17 08:58 Total Bilirubin 0.20 mg/dL (0.2-1.0) 03/31/17 08:58 AST 16 Units/L (15-37) 03/31/17 08:58 ALT 15 Units/L (12-78) 03/31/17 08:58 Alkaline Phosphatase 122 Units/L (46-116) H 03/31/17 08:58 C-Reactive Protein 15.50 mg/L (0-3.0) H 03/31/17 08:58 Total Protein 8.3 g/dL (6.4-8.2) H 03/31/17 08:58 Albumin 3.2 g/dL (3.4-5.0) L 03/31/17 08:58 Globulin 5.1 g/dL (2.5-4.5) H 03/31/17 08:58 Albumin/Globulin Ratio 0.6 Ratio (1.1-2.1) L 03/31/17 08:58 Amylase 75 Units/L (25-115) 03/31/17 08:58 Lipase 321 Units/L (73-393) 03/31/17 08:58 - Diagnosis Discharge Problem: Gastroparesis Abdominal pain Qualifiers: Abdominal location: generalized Qualified Code(s): R10.84 - Generalized abdominal pain - Discharge Plan Condition: Stable - Follow ups/Referrals Follow ups/Referrals: NFD,None [Primary Care Provider] - 3 days - Instructions Instructions: Managing Your High Blood Pressure
[2017-03-31] MEDS ORDERED: NS 1000 ML 1,000 ML IV SCH (09:00)
[2017-03-31 09:07] LABS: BASOPHILS # (AUTO) 0.1 X10^3/uL (0.0-0.1); BASOPHILS % (AUTO) 0.5 % (0.2-1.0); EOSINOPHILS # (AUTO) 0.1 x10^3/uL (0.0-0.2); HEMATOCRIT 31.9 % (36.0-47.0); HEMOGLOBIN 10.5 g/dL (12.0-16.0); LYMPHOCYTES # (AUTO) 1.4 X10^3/uL (1.3-2.9); LYMPHOCYTES % (AUTO) 11.5 % (21.0-51.0); MEAN CORPUSCULAR HEMOGLOBIN 27.2 pg (27.0-34.0); MEAN CORPUSCULAR VOLUME 82.4 fL (80.0-100.0); MEAN PLATELET VOLUME 8.5 fL (7.4-11.0); MONOCYTES # (AUTO) 0.4 x10^3/uL (0.3-0.8); NEUTROPHILS # (AUTO) 10.1 x10^3/uL (2.2-4.8); PLATELET COUNT 325 X10^3/uL (150.0-450.0); RED BLOOD COUNT 3.88 X10^6/uL (3.5-5.4); RED CELL DISTRIBUTION WIDTH 14.5 % (11.6-16.5); WHITE BLOOD COUNT 12.1 X10^3/uL (3.6-10.0)
[2017-03-31 09:18] LABS: ALBUMIN 3.2 g/dL (3.4-5.0); C-REACTIVE PROTEIN 15.5 mg/L (0-3.0); CALCIUM 9.1 mg/dL (8.5-10.1); CARBON DIOXIDE 28.7 mmol/L (21-32); COR CA(FOR HYPOALB) 9.7 mg/dL (8.5-10.1); CREATININE 2.03 mg/dL (0.55-1.02); TOTAL PROTEIN 8.3 g/dL (6.4-8.2)
[2017-03-31] MEDS ORDERED: K-LYTE EFFERVESCENT PO ONE (09:28)
[2017-03-31] MEDS ORDERED: DEMEROL INJ IM ONE (09:44)
[2017-03-31] MEDS ORDERED: DEMEROL INJ ONE (10:11)
[2017-03-31 11:36] LABS: BILIRUBIN,URINE NEGATIVE (NEGATIVE); BLOOD/HEMOGLOBIN,URINE 5+ (NEGATIVE); GLUCOSE, URINE 3+ (NEGATIVE); KETONES,URINE NEGATIVE (NEGATIVE); LEUKOCYTE ESTERASE ,URINE 3+ (NEGATIVE); NITRITES,URINE NEGATIVE (NEGATIVE); PROTEIN,URINE 3+ (NEGATIVE); UROBILINOGEN,URINE NORMAL (NORMAL)
[2017-03-31 11:43] LABS: APPEARANCE,URINE CLOUDY (CLEAR); COLOR,URINE PALE YELLOW (YELLOW)
[2017-03-31 11:44] LABS: BACTERIA,URINE TRACE /HPF (NEGATIVE); SQUAMOUS EPITHELIAL CELL,UR RARE /HPF (NEGATIVE)
[2017-03-31] MEDS ORDERED: DEMEROL INJ IM SCH (12:00)
[2017-03-31] MEDS ORDERED: NS 1000 ML 1,000 ML with POTASSIUM CHLORIDE INJ 20 MEQ VIAL 20 MEQ IV SCH ×2 (12:00)
[2017-03-31] MEDS ORDERED: REGLAN INJ 10 MG VIAL IVP ONE (12:17)
[2017-03-31] MEDS ORDERED: REGLAN INJ 10 MG VIAL ONE (12:25)
[2017-03-31] MEDS: DILAUDID INJ IVP PRN ×3 (12:34→21:12)
[2017-03-31] MEDS ORDERED: NS 100 ML IV 100 ML IV ONE (15:29)
[2017-03-31] MEDS: PROTONIX INJ 40 MG VIAL 80 MG in NS 100 ML IV 80 ML IV SCH (15:45)
[2017-03-31] MEDS: NS + KCL 20 MEQ/L 1,000 ML IV SCH (15:46)
[2017-03-31] MEDS ORDERED: ZESTRIL TAB 10 MG PO ONE (17:00)
[2017-03-31] MEDS ORDERED: AMBIEN PO SCH (21:00)
[2017-03-31] MEDS ORDERED: PATIENT'S HOME MEDICATION (Alprazolam [Alprazolam] 1 MG) PO SCH (21:00)
[2017-03-31] MEDS: KLONOPIN TAB 1 MG PO SCH (21:12)
[2017-03-31] MEDS: XANAX PO SCH (21:12)
[2017-04-01] MEDS: PROTONIX INJ 40 MG VIAL 80 MG in NS 100 ML IV 80 ML IV SCH ×2 (00:11→10:01)
[2017-04-01] MEDS: NS + KCL 20 MEQ/L 1,000 ML IV SCH ×2 (00:12→08:16)
[2017-04-01] MEDS: DILAUDID INJ IVP PRN ×3 (02:51→12:41)
[2017-04-01 06:00] LABS: BASOPHILS % (AUTO) 0.3 % (0.2-1.0); EOSINOPHILS # (AUTO) 0.4 x10^3/uL (0.0-0.2); EOSINOPHILS % (AUTO) 3.4 % (0.9-2.9); HEMATOCRIT 27.2 % (36.0-47.0); HEMOGLOBIN 9.1 g/dL (12.0-16.0); LYMPHOCYTES # (AUTO) 2.7 X10^3/uL (1.3-2.9); LYMPHOCYTES % (AUTO) 24.6 % (21.0-51.0); MEAN CORPUSCULAR HEMOGLOBIN 27.6 pg (27.0-34.0); MEAN CORPUSCULAR HGB CONC 33.4 g/dL (33.0-35.0); MEAN CORPUSCULAR VOLUME 82.7 fL (80.0-100.0); MEAN PLATELET VOLUME 8.5 fL (7.4-11.0); MONOCYTES # (AUTO) 0.8 x10^3/uL (0.3-0.8); MONOCYTES % (AUTO) 7.5 % (0.0-13.0); NEUTROPHILS % (AUTO) 64.2 % (42.0-75.0); PLATELET COUNT 291 X10^3/uL (150.0-450.0); RED BLOOD COUNT 3.29 X10^6/uL (3.5-5.4); RED CELL DISTRIBUTION WIDTH 14.7 % (11.6-16.5); WHITE BLOOD COUNT 10.9 X10^3/uL (3.6-10.0)
[2017-04-01 06:09] LABS: ALBUMIN 2.7 g/dL (3.4-5.0); CALCIUM 8.5 mg/dL (8.5-10.1); CARBON DIOXIDE 27.8 mmol/L (21-32); COR CA(FOR HYPOALB) 9.5 mg/dL (8.5-10.1); CREATININE 1.35 mg/dL (0.55-1.02)
[2017-04-01] MEDS: KLONOPIN TAB 1 MG PO SCH (08:14)
[2017-04-01] MEDS: XANAX PO SCH (08:15)
[2017-04-01] MEDS ORDERED: ZOFRAN INJ 4 MG VIAL IVP PRN (08:47)
[2017-04-01] MEDS ORDERED: ZESTRIL TAB 10 MG PO SCH (09:00)
[2017-04-01 13:25] VITALS: BP 177/97
[2017-04-01] MEDS ORDERED: NORVASC TAB 5 MG PO SCH (14:00)
== END 2017-04-01 13:25 | disposition home or self-care (01) ==
LOC: ER 08:29 → MED/SURG 12:08
PROVIDERS: ADMIT Internal Medicine; ATTEND Internal Medicine
DX: R10.84 Generalized abdominal pain (principal); K31.84 Gastroparesis; K21.9 Gastro-esophageal reflux disease without esophagitis; I10 Essential (primary) hypertension; B95.61 Methicillin susceptible Staphylococcus aureus infection as the cause of diseases classified elsewhere; D72.828 Other elevated white blood cell count; E11.65 Type 2 diabetes mellitus with hyperglycemia; Z87.898 Personal history of other specified conditions
CPT/HCPCS: 36415; 80053; 81001; 82150; 83690; 83735; 85025; 86140; 87086; 87088; 87186; 94760; 96365; 96367; 96374; 96375; 99283; 99284; A4216; A4222; C9113; G0378; J0360; J1170; J2175; J2405; J2550; J2765; J3480

== ENCOUNTER 2017-04-07 00:57 | Observation (INO) | payer MEDICAID ==
[2017-04-07 01:10] VITALS: BMI 30.7
[2017-04-07] MEDS ORDERED: PEPCID 20 MG IV PREMIX* 20 MG/50 ML BAG IV ONE ×2 (01:15→01:19)
[2017-04-07] MEDS ORDERED: PHENERGAN INJ 25 MG IVP ONE (01:43)
[2017-04-07] MEDS ORDERED: DEMEROL INJ IVP ONE (01:43)
[2017-04-07] MEDS ORDERED: PHENERGAN INJ 25 MG ONE (01:46)
[2017-04-07] MEDS ORDERED: DEMEROL INJ ONE (01:47)
--- NOTE | 2017-04-07 01:48 | DR.GENAD ---
HPI - PCP Primary Care Physician: Molina - HPI Comment HPI Comment: PATIENT GOT SICK WAS OUT OF TOWN IN [place] THURSDAY. TREATED IN HOSPITAL THERE AND DISCHARGE. CONTINUE FEELING SICK. GOT WORSE TONIGHT. NO FEVER. VOMITING ALL ORAL INTAKE. - Complaint/Symptoms Chief Complaint Doctors Comments: ABDOMINAL PAIN, NAUSEA, VOMITING THAT STATED TONIGH. NOT HOLDING DOWN MEDS. Chief Complaint:: Blood sugar, abdominal pain, n/v Self Treatment fo Chief Complaint: Zofran @ 22:00. Hydrocodone @ 22:00 - Nurses notes reviewed Nurses Notes Review: Yes - Source History Provided: Patient, Parent - Mode of Arrival Mode of Arrival: Wheelchair - Timing Onset of Chief Complaint: 04/07/17 Came on: Suddenly - Duration Duration: Constant Duration: Days - Severity Severity: Moderate PMH - PMH Past Medical History: Yes Past Medical History: Diabetes, GERD, Hypertension Past Medical History Comment: Gastroparesis Past Surgical History: Yes Surgical History: Cholecystectomy, Hysterectomy, Other - Family History History of Family Medical Conditions: Yes Family Medical History: Diabetes Mellitus, Hypertension - Social History Do you use any recreational Drugs:: No - infectious screening Have you traveled outside the country in the last 6 months?: No ROS - Review of Systems Constitutional: Weakness, Fatigue, Loss of Appetite Eyes: No Symptoms Reported. negative: Eye Pain, Discharge ENTM: negative: Ear Pain, Nose Discharge, Nose Congestion, Throat Pain Respiratoy: Non-Productive Cough. negative: Productive Cough, Short of Breath, Wheezing, Hemoptysis Cardiovascular: negative: Chest Pain, Edema, Palpitations Gastrointestinal/Abdominal: Abdominal Pain, Nausea, Vomiting Genitourinary: No Symptoms Reported. negative: Dysuria, Frequency, Hematuria Neurological: Headache, Weakness, Dizziness Musculoskeletal: Joint Pain, Muscle Pain Integumentary: Dryness Hematologic/Lymphatic: Anemia Endocrine: Increased Thirst, Increased Urine. negative: Flushing All Other Systems: Reviewed and Negative PE - Vital Signs Vitals: Temperature 99.7 F Pulse Rate 115 Respiratory Rate 20 Blood Pressure [Right Arm] 180/97 Blood Pressure [Left Arm] 177/97 Blood Pressure 198/100 O2 Sat by Pulse Oximetry 97 - General Limitations: No Limitations General Appearance: Alert - Head Head Exam: Normal Inspection - Eyes Eye exam: Normal Appearance - ENT ENT Exam: Normal External Ear Exam External Ear Exam: Normal External Inspection TM/Canal Exam: Bilateral Normal Nose Exam: Normal Nose Exam Mouth Exam: Normal Inspection Throat Exam: Normal Inspection - Neck Neck Exam: Trachea Midline - Chest Chest Inspection: Symmetric Chest Wall Rise - Respiratory Respiratory Exam: Normal Lung Sounds Bilat Respiratory Exam: Bilateral Rhonchi, Lower Rhonchi - Cardiovascular Cardiovascular Exam: Regular Rate, Normal Rhythm, Normal Heart Sounds - Abdominal Exam Abdominal Exam: Normal Bowel Sounds, Soft, Tenderness Abdominal Tenderness: Diffuse, Moderate - Extremities Extremities Exam: Normal Inspection. negative: Edema - Back Back Exam: Paraspinal Tenderness - Neurologic Neurological Exam: Alert, Oriented X3 - Psychiatric Psychiatric Exam: Normal Affect, Normal Mood - Skin Skin Exam: Normal Color MDM - Differential Diagnosis Differential Diagnosis: ABDOMINAL PAIN. UTI, BOWEL OBSTRUCTION, DIABETIC GASTROPARESIS Course - Treatment Treatment: SEE ORDERS.. MEDS ABD FLUID GIVEN IN ED PER ORDERS. - Reevaluation 1st: Improved - Consultation Consultation Comments: DISCUSS PATIENT WITH DR. GREGORIO. HE WILLADMIT PATIENT. - Education/Counseling Education/Counseling: Patient, Family, Education Educated On: Treatment, Diagnosis ROR - Labs Reviewed Laboratory Results Reviewed?: Yes Result Diagrams: 04/07/17 01:20 04/07/17 01:20 Laboratory: WBC 11.9 X10^3/uL (3.6-10.0) H 04/07/17 01:20 RBC 3.25 X10^6/uL (3.5-5.4) L 04/07/17 01:20 Hgb 8.9 g/dL (12.0-16.0) L 04/07/17 01:20 Hct 26.7 % (36.0-47.0) L 04/07/17 01:20 MCV 82.1 fL (80.0-100.0) 04/07/17 01:20 MCH 27.5 pg (27.0-34.0) 04/07/17 01:20 MCHC 33.5 g/dL (33.0-35.0) 04/07/17 01:20 RDW 14.0 % (11.6-16.5) 04/07/17 01:20 Plt Count 354 X10^3/uL (150.0-450.0) 04/07/17 01:20 MPV 8.6 fL (7.4-11.0) 04/07/17 01:20 Neut % 72.8 % (42.0-75.0) 04/07/17 01:20 Lymph % 16.7 % (21.0-51.0) L 04/07/17 01:20 [place] % 8.2 % (0.0-13.0) 04/07/17 01:20 Eos % 1.9 % (0.9-2.9) 04/07/17 01:20 Baso % 0.4 % (0.2-1.0) 04/07/17 01:20 Neut # 8.6 x10^3/uL (2.2-4.8) H 04/07/17 01:20 Lymph # 2.0 X10^3/uL (1.3-2.9) 04/07/17 01:20 [place] # 1.0 x10^3/uL (0.3-0.8) H 04/07/17 01:20 Eos # 0.2 x10^3/uL (0.0-0.2) 04/07/17 01:20 Baso # 0.0 X10^3/uL (0.0-0.1) 04/07/17 01:20 Absolute Nucleated RBC 0.0 /100WBC 04/07/17 01:20 Sodium 138 mmol/L (136-145) 04/07/17 01:20 Corrected Sodium 141 mmol/L (136-145) 04/07/17 01:20 Potassium 3.4 mmol/L (3.5-5.1) L 04/07/17 01:20 Chloride 98 mmol/L (98-107) 04/07/17 01:20 Carbon Dioxide 29.4 mmol/L (21-32) 04/07/17 01:20 BUN 11 mg/dL (7-18) 04/07/17 01:20 Creatinine 1.67 mg/dL (0.55-1.02) H 04/07/17 01:20 Est GFR (MDRD) Af Amer 46 (>60) L 04/07/17 01:20 Est GFR (MDRD) Non-Af 38 (>60) L 04/07/17 01:20 Glucose 226 mg/dL (65-99) H 04/07/17 01:20 Calcium 8.9 mg/dL (8.5-10.1) 04/07/17 01:20 Corrected Calcium 9.9 mg/dL (8.5-10.1) 04/07/17 01:20 Total Bilirubin 0.20 mg/dL (0.2-1.0) 04/07/17 01:20 AST 12 Units/L (15-37) L 04/07/17 01:20 ALT 14 Units/L (12-78) 04/07/17 01:20 Alkaline Phosphatase 119 Units/L (46-116) H 04/07/17 01:20 Total Protein 7.7 g/dL (6.4-8.2) 04/07/17 01:20 Albumin 2.8 g/dL (3.4-5.0) L 04/07/17 01:20 Globulin 4.9 g/dL (2.5-4.5) H 04/07/17 01:20 Albumin/Globulin Ratio 0.6 Ratio (1.1-2.1) L 04/07/17 01:20 Amylase 47 Units/L (25-115) 04/07/17 01:20 Lipase 163 Units/L (73-393) 04/07/17 01:20 Specimen Type Clean catch urine 04/07/17 02:05 Urine Color Yellow (YELLOW) 04/07/17 02:05 Urine Appearance Cloudy (CLEAR) 04/07/17 02:05 Urine pH 7.0 (5.0 - 8.0) 04/07/17 02:05 Ur Specific [place] 1.010 (1.000-1.030) 04/07/17 02:05 Urine Protein 3+ (NEGATIVE) 04/07/17 02:05 Urine Glucose (UA) 2+ (NEGATIVE) 04/07/17 02:05 Urine Ketones Negative (NEGATIVE) 04/07/17 02:05 Urine Occult Blood 5+ (NEGATIVE) 04/07/17 02:05 Urine Nitrite Negative (NEGATIVE) 04/07/17 02:05 Urine Bilirubin Negative (NEGATIVE) 04/07/17 02:05 Urine Urobilinogen Normal (NORMAL) 04/07/17 02:05 Ur Leukocyte Esterase 3+ (NEGATIVE) 04/07/17 02:05 Urine RBC 8-10 /HPF (NEGATIVE) 04/07/17 02:05 Urine WBC 25-30 /HPF (NEGATIVE) 04/07/17 02:05 Ur Squamous Epith Cells Rare /HPF (NEGATIVE) 04/07/17 02:05 Urine Bacteria 1+ /HPF (NEGATIVE) 04/07/17 02:05 Ur Culture Indicated? Yes/culture set up 04/07/17 02:05 - XRAY XRAY Interpreted by: Radiologist XRAY Findings: REPORT DISCUSS WITH PATIENT. - Diagnosis Discharge Problem: Gastroparesis Abdominal pain Qualifiers: Abdominal location: generalized Qualified Code(s): R10.84 - Generalized abdominal pain UTI (urinary tract infection) Qualifiers: Urinary tract infection type: site unspecified Hematuria presence: with hematuria Qualified Code(s): N39.0 - Urinary tract infection, site not specified - Discharge Plan Disposition: ADMITTED INPATIENT Condition: Stable - Follow ups/Referrals - Instructions
[2017-04-07] MEDS ORDERED: DILAUDID INJ IVP ONE (01:50)
[2017-04-07] MEDS ORDERED: DILAUDID INJ ONE (01:53)
[2017-04-07 01:59] LABS: BASOPHILS % (AUTO) 0.4 % (0.2-1.0); EOSINOPHILS # (AUTO) 0.2 x10^3/uL (0.0-0.2); EOSINOPHILS % (AUTO) 1.9 % (0.9-2.9); HEMATOCRIT 26.7 % (36.0-47.0); HEMOGLOBIN 8.9 g/dL (12.0-16.0); LYMPHOCYTES % (AUTO) 16.7 % (21.0-51.0); MEAN CORPUSCULAR HEMOGLOBIN 27.5 pg (27.0-34.0); MEAN CORPUSCULAR HGB CONC 33.5 g/dL (33.0-35.0); MEAN CORPUSCULAR VOLUME 82.1 fL (80.0-100.0); MEAN PLATELET VOLUME 8.6 fL (7.4-11.0); MONOCYTES % (AUTO) 8.2 % (0.0-13.0); NEUTROPHILS # (AUTO) 8.6 x10^3/uL (2.2-4.8); NEUTROPHILS % (AUTO) 72.8 % (42.0-75.0); PLATELET COUNT 354 X10^3/uL (150.0-450.0); RED BLOOD COUNT 3.25 X10^6/uL (3.5-5.4); WHITE BLOOD COUNT 11.9 X10^3/uL (3.6-10.0)
[2017-04-07 02:08] LABS: ALBUMIN 2.8 g/dL (3.4-5.0); CALCIUM 8.9 mg/dL (8.5-10.1); CARBON DIOXIDE 29.4 mmol/L (21-32); COR CA(FOR HYPOALB) 9.9 mg/dL (8.5-10.1); CREATININE 1.67 mg/dL (0.55-1.02); TOTAL PROTEIN 7.7 g/dL (6.4-8.2)
[2017-04-07 02:12] LABS: BILIRUBIN,URINE NEGATIVE (NEGATIVE); BLOOD/HEMOGLOBIN,URINE 5+ (NEGATIVE); GLUCOSE, URINE 2+ (NEGATIVE); KETONES,URINE NEGATIVE (NEGATIVE); LEUKOCYTE ESTERASE ,URINE 3+ (NEGATIVE); NITRITES,URINE NEGATIVE (NEGATIVE); PROTEIN,URINE 3+ (NEGATIVE); UROBILINOGEN,URINE NORMAL (NORMAL)
[2017-04-07 02:13] LABS: APPEARANCE,URINE CLOUDY (CLEAR); COLOR,URINE YELLOW (YELLOW)
[2017-04-07 02:16] LABS: BACTERIA,URINE 1+ /HPF (NEGATIVE); SQUAMOUS EPITHELIAL CELL,UR RARE /HPF (NEGATIVE)
[2017-04-07] MEDS ORDERED: CIPRO IV 400 MG PREMIX* 400 MG/200 ML IV.SOLN. IV ONE ×2 (03:10→03:30)
[2017-04-07] MEDS ORDERED: TORADOL 30 MG VIAL IVP ONE (03:12)
[2017-04-07] MEDS ORDERED: ZOFRAN INJ 4 MG VIAL IVP ONE (03:12)
[2017-04-07] MEDS ORDERED: NS 500 ML IV 500 ML IV PRN (03:24)
[2017-04-07] MEDS ORDERED: NS 500 ML IV 500 ML IV ONE (03:26)
[2017-04-07] MEDS ORDERED: TORADOL 30 MG VIAL ONE (03:29)
[2017-04-07] MEDS ORDERED: ZOFRAN INJ 4 MG VIAL ONE (03:29)
--- NOTE | 2017-04-07 03:53 | CT ---
CT abdomen and pelvis without contrast Indication: Abdominal pain, nausea and vomiting Technique: Helical CT images of the abdomen and pelvis were obtained without IV contrast. Reformatted images in the coronal and sagittal planes were also generated for review. Comparison: 03/27/2017 Findings: Lung bases are clear. Mild degenerative disc disease is noted at L4-L5. No aggressive osseo us lesions are identified. The gallbladder surgically absent. Within the limits of a noncontrast exam, the liver, spleen, pancre as and adrenals are unremarkable. Both kidneys and visualized ureters are normal without radiopaque s tones or hydroureteronephrosis. There is hyperdense material within the otherwise normal appearing ap pendix, suggestive for appendicoliths. A few noninflamed diverticula are noted within the ascending c olon. The remaining unenhanced GI tract is normal. The IVC and abdominal aorta are unremarkable. Ther e is moderate urinary bladder wall thickening, possibly related to under distention. The unenhanced u terus and adnexa are grossly within normal limits. Trace free pelvic fluid is likely physiologic. No free air or lymphadenopathy is identified. Impression: Moderate urinary bladder wall thickening, possibly related to under distension. Correlation with urin alysis is recommended to exclude cystitis. Otherwise, no acute abnormality to explain patient's symptoms. Mild colonic diverticulosis and additional incidental findings, as above. Reported By:
[2017-04-07] MEDS ORDERED: BENADRYL INJ 50 MG VIAL ONE (04:05)
[2017-04-07] MEDS ORDERED: BENADRYL INJ 50 MG VIAL IVP ONE (04:05)
[2017-04-07] MEDS ORDERED: DILAUDID INJ IVP PRN (05:11)
[2017-04-07] MEDS ORDERED: PEPCID 20 MG IV PREMIX* 20 MG/50 ML BAG IV PRN (05:11)
[2017-04-07] MEDS ORDERED: ZOFRAN INJ 4 MG VIAL IVP PRN (05:11)
[2017-04-07] MEDS: NS 1000 ML 1,000 ML IV SCH ×3 (06:19→21:32)
--- NOTE | 2017-04-07 09:33 | RAD ---
Examination: Portable AP chest History: Abdominal pain Normal heart size, clear lungs and pleural spaces. A left subclavian catheter terminates near the cav oatrial junction. Impression: No acute chest abnormality noted. Reported By:
[2017-04-07] MEDS: PHENERGAN INJ 25 MG IVP PRN ×2 (11:52→19:24)
[2017-04-07] MEDS: DEMEROL INJ IVP PRN ×2 (11:52→19:27)
[2017-04-07] MEDS ORDERED: PATIENT'S HOME MEDICATION (Ondansetron [Ondansetron Odt] 4 MG) PO PRN (13:07)
[2017-04-07] MEDS ORDERED: CATAPRES TAB 0.1 MG PO ONE (13:08)
[2017-04-07] MEDS ORDERED: XANAX PO PRN (13:17)
[2017-04-07] MEDS ORDERED: ZOFRAN TAB 4 MG PO PRN (13:22)
[2017-04-07] MEDS: NORCO 10/325 TAB PO SCH ×2 (13:27→21:32)
[2017-04-07] MEDS: REGLAN TAB 10 MG PO SCH ×2 (16:37→21:31)
[2017-04-07] MEDS: CIPRO IV 400 MG PREMIX* 400 MG/200 ML IV.SOLN. IV SCH ×4 (19:39→23:25)
[2017-04-07] MEDS ORDERED: LANTUS SC SCH (21:00)
[2017-04-07] MEDS ORDERED: PATIENT'S HOME MEDICATION (Alprazolam [Alprazolam] 1 MG) PO SCH (21:00)
[2017-04-07] MEDS ORDERED: AMBIEN PO SCH (21:00)
[2017-04-07] MEDS: XANAX PO SCH (21:31)
[2017-04-08] MEDS: DEMEROL INJ IVP PRN ×2 (01:41→08:52)
[2017-04-08] MEDS: PHENERGAN INJ 25 MG IVP PRN ×2 (01:42→08:52)
[2017-04-08] MEDS: NS 1000 ML 1,000 ML IV SCH (03:51)
[2017-04-08 04:58] LABS: BASOPHILS # (AUTO) 0.1 X10^3/uL (0.0-0.1); BASOPHILS % (AUTO) 0.5 % (0.2-1.0); EOSINOPHILS # (AUTO) 0.3 x10^3/uL (0.0-0.2); EOSINOPHILS % (AUTO) 3.2 % (0.9-2.9); HEMATOCRIT 24.4 % (36.0-47.0); HEMOGLOBIN 8.3 g/dL (12.0-16.0); LYMPHOCYTES # (AUTO) 1.7 X10^3/uL (1.3-2.9); LYMPHOCYTES % (AUTO) 18.4 % (21.0-51.0); MEAN CORPUSCULAR HEMOGLOBIN 28.2 pg (27.0-34.0); MEAN CORPUSCULAR HGB CONC 34.2 g/dL (33.0-35.0); MEAN CORPUSCULAR VOLUME 82.5 fL (80.0-100.0); MEAN PLATELET VOLUME 8.4 fL (7.4-11.0); MONOCYTES # (AUTO) 0.7 x10^3/uL (0.3-0.8); MONOCYTES % (AUTO) 7.2 % (0.0-13.0); NEUTROPHILS # (AUTO) 6.6 x10^3/uL (2.2-4.8); NEUTROPHILS % (AUTO) 70.7 % (42.0-75.0); PLATELET COUNT 293 X10^3/uL (150.0-450.0); RED BLOOD COUNT 2.95 X10^6/uL (3.5-5.4); RED CELL DISTRIBUTION WIDTH 14.1 % (11.6-16.5); WHITE BLOOD COUNT 9.4 X10^3/uL (3.6-10.0)
[2017-04-08] MEDS: NORCO 10/325 TAB PO SCH (05:31)
[2017-04-08] MEDS: REGLAN TAB 10 MG PO SCH ×2 (05:31→12:52)
[2017-04-08 06:38] LABS: ALANINE AMINOTRANSFERASE 18 Units/L (12-78); ALBUMIN 2.7 g/dL (3.4-5.0); ALKALINE PHOSPHATASE 142 Units/L (46-116); ASPARTATE AMINO TRANSFERASE 27 Units/L (15-37); BLOOD UREA NITROGEN 10 mg/dL (7-18); CALCIUM 8.7 mg/dL (8.5-10.1); CARBON DIOXIDE 28.1 mmol/L (21-32); CHLORIDE 101 mmol/L (98-107); COR CA(FOR HYPOALB) 9.7 mg/dL (8.5-10.1); CREATININE 1.63 mg/dL (0.55-1.02); SODIUM 138 mmol/L (136-145); TOTAL PROTEIN 7.2 g/dL (6.4-8.2); eGFR BLACK RACES 47 (>60); eGFR NON BLACK RACES 39 (>60)
[2017-04-08] MEDS ORDERED: ZESTRIL TAB 20 MG ONE (08:37)
[2017-04-08] MEDS: CIPRO IV 400 MG PREMIX* 400 MG/200 ML IV.SOLN. IV SCH (08:51)
[2017-04-08] MEDS: XANAX PO SCH (08:51)
[2017-04-08] MEDS ORDERED: NORVASC TAB 5 MG PO SCH (09:00)
[2017-04-08] MEDS ORDERED: ZESTRIL TAB 10 MG PO SCH ×2 (09:00)
[2017-04-08 12:21] VITALS: BP 159/87
== END 2017-04-08 12:05 | disposition home or self-care (01) ==
LOC: ER 00:57 → MED/SURG 04:50
PROVIDERS: ADMIT Obstetrics & Gynecology Obstetrics; ATTEND Internal Medicine
DX: E11.43 Type 2 diabetes mellitus with diabetic autonomic (poly)neuropathy (principal); N39.0 Urinary tract infection, site not specified; R31.9 Hematuria, unspecified; I10 Essential (primary) hypertension
CPT/HCPCS: 36415; 71010; 74176; 80053; 81001; 82150; 83690; 85025; 87086; 96365; 96374; 96375; 99284; 99285; A4216; A4222; S0028; G0378; J0744; J1170; J1200; J1885; J2175; J2405; J2550

== ENCOUNTER 2017-04-16 08:16 | Observation (INO) | payer MEDICAID ==
[2017-04-16 08:21] VITALS: BMI 30.7
[2017-04-16] MEDS ORDERED: APRESOLINE INJ 20 MG VIAL IVP ONE ×2 (08:42→13:44)
[2017-04-16] MEDS ORDERED: REGLAN INJ 10 MG VIAL IVP ONE (08:45)
[2017-04-16] MEDS ORDERED: DILAUDID INJ IM ONE (08:46)
--- NOTE | 2017-04-16 08:49 | DR.GENAD ---
HPI - PCP Primary Care Physician: omer - HPI Comment HPI Comment: A 31 y/o female presenting with compaint of abdominal pain. This was onset yesterday night and it has been constant. It is diffuse in location. She can't describe/characterize it, it just hurts. She has associated nausea and vomitting. She has a hx. of diabetic gastroparesis and was just discharged home from this hospital last yesterday. This is her 3rd or 4th visit to the hospital this MONTH and she has been admitted a couple of times. - Complaint/Symptoms Chief Complaint:: pt has a hx of gastrophresis and has been vomiting this morning. - Nurses notes reviewed Nurses Notes Review: Yes - Source History Provided: Patient - Mode of Arrival Mode of Arrival: Ambulatory - Timing Onset of Chief Complaint: 04/16/17 - Location Location: diffuse - Modifying Factors Worsens:: nothing Improves:: nothing PMH - PMH Past Medical History: Yes Past Medical History: Diabetes (uncontrolled, with gastroparesis ), GERD, Hypertension (uncontrolled) Past Surgical History: Yes Surgical History: Cholecystectomy, Hysterectomy - Family History History of Family Medical Conditions: Yes Family Medical History: Diabetes Mellitus, Hypertension - Social History Does patient currently use any type of tobacco product: No Have you used tobacco products in the last 12 months: No Type of Tobacco Use: None Does any household member use tobacco: No Alcohol Use: None Do you use any recreational Drugs:: No Lives With: Family Lives Where: Home - infectious screening In the last 2 months have you had wt loss of >10#?: NO Have you had fever, night sweats or hemotysis?: No Have you traveled outside the country in the last 6 months?: No Isolation: Standard ROS - Review of Systems Constitutional: No Symptoms Reported Eyes: No Symptoms Reported ENTM: No Symptoms Reported Respiratoy: No Symptoms Reported Cardiovascular: No Symptoms Reported Gastrointestinal/Abdominal: Abdominal Pain (diffuse), Nausea, Vomiting Genitourinary: No Symptoms Reported Neurological: No Symptoms Reported Musculoskeletal: No Symptoms Reported Integumentary: No Symptoms Reported Hematologic/Lymphatic: No Symptoms Reported Endocrine: No Symptoms Reported Psychiatric: No Symptoms Reported All Other Systems: Reviewed and Negative PE - Vital Signs Vitals: Temperature 98.7 F Pulse Rate [Apical] 122 Pulse Rate 139 Respiratory Rate 24 Blood Pressure [Right Arm] 185/103 Blood Pressure [Left Arm] 159/87 Blood Pressure 153/133 O2 Sat by Pulse Oximetry 98 - General Limitations: No Limitations General Appearance: Alert, In No Apparent Distress, In Distress (pain related it appears) - Head Head Exam: Normal Inspection - Eyes Eye exam: Normal Appearance, PERRL, EOMI - ENT ENT Exam: Normal Exam External Ear Exam: Normal External Inspection - Neck Neck Exam: Normal Inspection - Chest Chest Inspection: Normal Inspection - Respiratory Respiratory Exam: Normal Lung Sounds Bilat - Cardiovascular Cardiovascular Exam: Regular Rate, Normal Rhythm - Abdominal Exam Abdominal Exam: Normal Inspection, Normal Bowel Sounds, Soft, Tenderness ( diffuse) - Extremities Extremities Exam: Other (s/p Rt. BKA) - Back Back Exam: Normal Inspection - Neurologic Neurological Exam: Alert, Oriented X3, CN II-XII Intact - Psychiatric Psychiatric Exam: Normal Affect, Normal Mood - Skin Skin Exam: Warm, Dry, Intact, Normal Color Course - Consultation Called: 12:45 Consultation Comments: Dr. Auguste, who agrees to request for admission. - Education/Counseling Education/Counseling: Patient Educated On: Treatment, Diagnosis, Prognosis, Needs for Follow Up ROR - Labs Reviewed Result Diagrams: 04/16/17 09:10 04/16/17 09:10 Laboratory: WBC 15.3 X10^3/uL (3.6-10.0) H 04/16/17 09:10 RBC 3.88 X10^6/uL (3.5-5.4) 04/16/17 09:10 Hgb 10.6 g/dL (12.0-16.0) L 04/16/17 09:10 Hct 31.6 % (36.0-47.0) L 04/16/17 09:10 MCV 81.4 fL (80.0-100.0) 04/16/17 09:10 MCH 27.2 pg (27.0-34.0) 04/16/17 09:10 MCHC 33.4 g/dL (33.0-35.0) 04/16/17 09:10 RDW 14.1 % (11.6-16.5) 04/16/17 09:10 Plt Count 617 X10^3/uL (150.0-450.0) H 04/16/17 09:10 Plt Count Comment Increased (ADEQUATE) A 04/16/17 09:10 MPV 7.7 fL (7.4-11.0) 04/16/17 09:10 Neut % 89.4 % (42.0-75.0) H 04/16/17 09:10 Lymph % 8.3 % (21.0-51.0) L 04/16/17 09:10 [place] % 2.3 % (0.0-13.0) 04/16/17 09:10 Eos % 0.0 % (0.9-2.9) L 04/16/17 09:10 Baso % 0 % (0.2-1.0) L 04/16/17 09:10 Neut # 13.7 x10^3/uL (2.2-4.8) H 04/16/17 09:10 Lymph # 1.3 X10^3/uL (1.3-2.9) 04/16/17 09:10 [place] # 0.4 x10^3/uL (0.3-0.8) 04/16/17 09:10 Eos # 0.0 x10^3/uL (0.0-0.2) 04/16/17 09:10 Baso # 0.0 X10^3/uL (0.0-0.1) 04/16/17 09:10 Absolute Nucleated RBC 0.1 /100WBC 04/16/17 09:10 Total Counted 100 04/16/17 09:10 Neutrophils % (Manual) 88 % (39-76) H 04/16/17 09:10 Lymphocytes % (Manual) 9 % (13-43) L 04/16/17 09:10 Monocytes % (Manual) 3 % (4-9) L 04/16/17 09:10 Plt Morphology Comment Normal (NORMAL) 04/16/17 09:10 RBC Morphology Normal (NORMAL) 04/16/17 09:10 Sodium 136 mmol/L (136-145) 04/16/17 09:10 Corrected Sodium 142 mmol/L (136-145) 04/16/17 09:10 Potassium 3.8 mmol/L (3.5-5.1) 04/16/17 09:10 Chloride 96 mmol/L (98-107) L 04/16/17 09:10 Carbon Dioxide 28.4 mmol/L (21-32) 04/16/17 09:10 BUN 14 mg/dL (7-18) 04/16/17 09:10 Creatinine 1.74 mg/dL (0.55-1.02) H 04/16/17 09:10 Est GFR (MDRD) Af Amer 44 (>60) L 04/16/17 09:10 Est GFR (MDRD) Non-Af 36 (>60) L 04/16/17 09:10 Glucose 346 mg/dL (65-99) H 04/16/17 09:10 Calcium 9.9 mg/dL (8.5-10.1) 04/16/17 09:10 Corrected Calcium 10.5 mg/dL (8.5-10.1) H 04/16/17 09:10 Total Bilirubin 0.30 mg/dL (0.2-1.0) 04/16/17 09:10 AST 21 Units/L (15-37) 04/16/17 09:10 ALT 27 Units/L (12-78) 04/16/17 09:10 Alkaline Phosphatase 221 Units/L (46-116) H 04/16/17 09:10 Total Protein 9.4 g/dL (6.4-8.2) H 04/16/17 09:10 Albumin 3.2 g/dL (3.4-5.0) L 04/16/17 09:10 Globulin 6.2 g/dL (2.5-4.5) H 04/16/17 09:10 Albumin/Globulin Ratio 0.5 Ratio (1.1-2.1) L 04/16/17 09:10 Amylase 41 Units/L (25-115) 04/16/17 09:10 Lipase 176 Units/L (73-393) 04/16/17 09:10 - XRAY XRAY Interpreted by: Radiologist (no acute chest or abdominal process identified.) - Diagnosis Discharge Problem: Diabetic gastroparesis associated with type 1 diabetes mellitus, Uncontrolled stage 2 hypertension, Alkaline phosphatase elevation - Discharge Plan Disposition: ADMITTED INPATIENT Condition: Stable - Follow ups/Referrals Follow ups/Referrals: KOREY AUGUSTE [Primary Care Provider] - 3 days - Instructions
[2017-04-16] MEDS ORDERED: NS 1000 ML 1,000 ML IV ONE (08:51)
[2017-04-16] MEDS ORDERED: APRESOLINE INJ 20 MG VIAL ONE ×2 (08:52→13:44)
[2017-04-16] MEDS ORDERED: NS 1000 ML 1,000 ML ONE (08:52)
[2017-04-16] MEDS ORDERED: REGLAN INJ 10 MG VIAL ONE (08:52)
[2017-04-16] MEDS ORDERED: DILAUDID INJ ONE (08:53)
[2017-04-16 09:22] LABS: BASOPHILS % (AUTO) 0 % (0.2-1.0); HEMATOCRIT 31.6 % (36.0-47.0); HEMOGLOBIN 10.6 g/dL (12.0-16.0); LYMPHOCYTES # (AUTO) 1.3 X10^3/uL (1.3-2.9); LYMPHOCYTES % (AUTO) 8.3 % (21.0-51.0); MEAN CORPUSCULAR HEMOGLOBIN 27.2 pg (27.0-34.0); MEAN CORPUSCULAR HGB CONC 33.4 g/dL (33.0-35.0); MEAN CORPUSCULAR VOLUME 81.4 fL (80.0-100.0); MEAN PLATELET VOLUME 7.7 fL (7.4-11.0); MONOCYTES # (AUTO) 0.4 x10^3/uL (0.3-0.8); MONOCYTES % (AUTO) 2.3 % (0.0-13.0); NEUTROPHILS # (AUTO) 13.7 x10^3/uL (2.2-4.8); NEUTROPHILS % (AUTO) 89.4 % (42.0-75.0); PLATELET COUNT 617 X10^3/uL (150.0-450.0); RED BLOOD COUNT 3.88 X10^6/uL (3.5-5.4); RED CELL DISTRIBUTION WIDTH 14.1 % (11.6-16.5); WHITE BLOOD COUNT 15.3 X10^3/uL (3.6-10.0)
[2017-04-16 09:41] LABS: PLATELET MORPHOLOGY COMMENT NORMAL (NORMAL)
[2017-04-16 09:48] LABS: ALBUMIN 3.2 g/dL (3.4-5.0); CALCIUM 9.9 mg/dL (8.5-10.1); CARBON DIOXIDE 28.4 mmol/L (21-32); COR CA(FOR HYPOALB) 10.5 mg/dL (8.5-10.1); CREATININE 1.74 mg/dL (0.55-1.02); TOTAL PROTEIN 9.4 g/dL (6.4-8.2)
[2017-04-16 10:06] LABS: AMYLASE 41 Units/L (25-115); LIPASE 176 Units/L (73-393)
--- NOTE | 2017-04-16 10:32 | RAD ---
Examination: Abdomen with PA chest History: Pain nausea and vomiting Findings: PA chest demonstrates normal heart size with no evidence for pleural fluid, pneumothorax or pneumoperitoneum. A left subclavian catheter extends to the cavoatrial junction. In the abdomen, sup ine and upright views demonstrate no evidence for intestinal distention, pneumatosis or free air. Dif fuse hazy density over the abdomen may be related to patient habitus, although ascites cannot be rule d out. There are suspect surgical clips from cholecystectomy. No pathologic calcification or visceral enlargement is noted. Impression: No acute chest or abdominal process identified. Postsurgical findings. See above descript ion. Reported By:
[2017-04-16] MEDS ORDERED: HumuLIN R SUBCUT ONE (12:03)
[2017-04-16] MEDS ORDERED: HumuLIN R ONE (12:06)
[2017-04-16] MEDS ORDERED: APRESOLINE INJ 20 MG VIAL IVP PRN (12:16)
[2017-04-16] MEDS: DILAUDID INJ IVP PRN ×3 (13:08→21:14)
[2017-04-16] MEDS ORDERED: NORVASC TAB 5 MG PO ONE (13:43)
[2017-04-16] MEDS: NS 1/2 1000 ML IV 1,000 ML IV SCH ×2 (14:05→22:24)
[2017-04-16] MEDS: PHENERGAN INJ 25 MG IVP PRN ×2 (14:05→21:14)
[2017-04-16] MEDS ORDERED: NS 1/2 1000 ML IV 1,000 ML IV ONE (14:07)
[2017-04-16] MEDS ORDERED: LEVSIN/MAALOX/LIDOC VISC PO PRN (15:32)
[2017-04-16] MEDS ORDERED: ZESTRIL TAB 20 MG ONE (21:00)
[2017-04-16] MEDS: PROTONIX INJ 40 MG VIAL IVP SCH (21:12)
[2017-04-16] MEDS: ZESTRIL TAB 20 MG PO SCH (21:13)
[2017-04-17] MEDS: DILAUDID INJ IVP PRN ×2 (01:18→05:37)
[2017-04-17 05:37] LABS: ALBUMIN 2.5 g/dL (3.4-5.0); CALCIUM 8.3 mg/dL (8.5-10.1); CARBON DIOXIDE 27.3 mmol/L (21-32); COR CA(FOR HYPOALB) 9.5 mg/dL (8.5-10.1); CREATININE 2.11 mg/dL (0.55-1.02); TOTAL PROTEIN 7.2 g/dL (6.4-8.2)
[2017-04-17] MEDS ORDERED: NS 1/2 1000 ML IV 1,000 ML IV ONE (05:53)
[2017-04-17] MEDS ORDERED: POTASSIUM CHL 60 MEQ/NS 0.45% 500 ML IV PRN (06:06)
[2017-04-17] MEDS ORDERED: POTASSIUM CHLORIDE LIQ 20 MEQ UDC PO PRN (06:06)
[2017-04-17] MEDS ORDERED: MAGNESIUM SULFATE 1 GM/100 mL PREMIX 1 GM/100 ML BAG IV PRN (06:06)
[2017-04-17] MEDS ORDERED: MAG-OX TAB PO PRN (06:06)
[2017-04-17] MEDS ORDERED: K-LYTE EFFERVESCENT PO PRN (06:06)
[2017-04-17] MEDS ORDERED: POTASSIUM CHL 40 MEQ/NS 0.45% 500 ML IV PRN (06:06)
[2017-04-17] MEDS ORDERED: K-RIDER 10 MEQ/NS 100 ML 10 MEQ/100 ML BAG IV PRN (06:06)
[2017-04-17 06:07] LABS: BASOPHILS # (AUTO) 0.1 X10^3/uL (0.0-0.1); BASOPHILS % (AUTO) 0.3 % (0.2-1.0); EOSINOPHILS # (AUTO) 0.1 x10^3/uL (0.0-0.2); EOSINOPHILS % (AUTO) 0.9 % (0.9-2.9); HEMATOCRIT 25.2 % (36.0-47.0); HEMOGLOBIN 8.4 g/dL (12.0-16.0); LYMPHOCYTES # (AUTO) 2.4 X10^3/uL (1.3-2.9); LYMPHOCYTES % (AUTO) 15.7 % (21.0-51.0); MEAN CORPUSCULAR HEMOGLOBIN 26.8 pg (27.0-34.0); MEAN CORPUSCULAR HGB CONC 33.3 g/dL (33.0-35.0); MEAN CORPUSCULAR VOLUME 80.6 fL (80.0-100.0); MEAN PLATELET VOLUME 7.8 fL (7.4-11.0); MONOCYTES # (AUTO) 0.7 x10^3/uL (0.3-0.8); MONOCYTES % (AUTO) 4.4 % (0.0-13.0); NEUTROPHILS % (AUTO) 78.7 % (42.0-75.0); PLATELET COUNT 455 X10^3/uL (150.0-450.0); RED BLOOD COUNT 3.12 X10^6/uL (3.5-5.4); RED CELL DISTRIBUTION WIDTH 14.2 % (11.6-16.5); WHITE BLOOD COUNT 15.2 X10^3/uL (3.6-10.0)
[2017-04-17] MEDS: NS 1/2 1000 ML IV 1,000 ML IV SCH ×2 (06:20→13:39)
[2017-04-17] MEDS ORDERED: DEMEROL INJ IVP PRN (06:33)
[2017-04-17 08:46] VITALS: BP 130/69
[2017-04-17] MEDS ORDERED: ZESTRIL TAB 20 MG ONE (08:57)
[2017-04-17] MEDS ORDERED: NORVASC TAB 10 MG PO SCH (09:00)
[2017-04-17] MEDS: PROTONIX INJ 40 MG VIAL IVP SCH (09:16)
[2017-04-17] MEDS: ZESTRIL TAB 20 MG PO SCH (09:17)
[2017-04-17] MEDS ORDERED: ZOFRAN TAB 4 MG ONE (12:57)
== END 2017-04-17 13:41 | disposition home or self-care (01) ==
LOC: ER 08:23 → OBS 12:59
PROVIDERS: ADMIT Internal Medicine; ATTEND Internal Medicine
DX: E10.43 Type 1 diabetes mellitus with diabetic autonomic (poly)neuropathy (principal); R10.84 Generalized abdominal pain; R11.2 Nausea with vomiting, unspecified; K21.9 Gastro-esophageal reflux disease without esophagitis; I10 Essential (primary) hypertension; E10.65 Type 1 diabetes mellitus with hyperglycemia; R74.8 Abnormal levels of other serum enzymes; D72.828 Other elevated white blood cell count; D64.89 Other specified anemias
CPT/HCPCS: 36415; 74022; 80053; 82150; 83690; 83735; 85025; 96365; 96367; 96374; 96375; 99217; 99283; 99284; A4216; A4222; C9113; S0181; G0378; J0360; J1815; J2175; J2550; J2765

== ENCOUNTER 2017-04-28 08:09 | Emergency (ER) | payer MEDICAID ==
[2017-04-28 08:17] VITALS: BMI 32.1
--- NOTE | 2017-04-28 08:26 | DR.GENAD ---
HPI - PCP Primary Care Physician: BLAIRE - Complaint/Symptoms Chief Complaint Doctors Comments: Patient reports that she started with pain from her gastroparesis on yesterday, she was seen by Dr Auguste and was given percocet but has not been able to keep anything down. She states that her pain level is 10, sharp, since yesterday no modifying factors Chief Complaint:: "I'M HAVING SEVERE ABDOMINAL PAIN AND NAUSEA." Self Treatment fo Chief Complaint: ZOFRAN 4 MG X 1 - Source History Provided: Patient - Mode of Arrival Mode of Arrival: Wheelchair - Timing Onset of Chief Complaint: 04/27/17 PMH - PMH Past Medical History: Yes Past Medical History: Diabetes, GERD, Hypertension Past Surgical History: Yes Surgical History: Cholecystectomy Past Surgical History Comment: PARTIAL HYSTERECTOMY - Family History History of Family Medical Conditions: Yes Family Medical History: Diabetes Mellitus, Hypertension - Social History Does any household member use tobacco: No Do you use any recreational Drugs:: No - infectious screening In the last 2 months have you had wt loss of >10#?: NO Have you had fever, night sweats or hemotysis?: No Have you traveled outside the country in the last 6 months?: No ROS - Review of Systems Constitutional: No Symptoms Reported Eyes: No Symptoms Reported ENTM: No Symptoms Reported Respiratoy: No Symptoms Reported Cardiovascular: No Symptoms Reported Gastrointestinal/Abdominal: Abdominal Pain, Nausea, Vomiting Genitourinary: No Symptoms Reported Neurological: No Symptoms Reported Musculoskeletal: No Symptoms Reported Integumentary: No Symptoms Reported Hematologic/Lymphatic: No Symptoms Reported Endocrine: No Symptoms Reported Psychiatric: No Symptoms Reported All Other Systems: Reviewed and Negative PE - Vital Signs Vitals: Temperature 98.7 F Pulse Rate [Left Brachial] 96 Pulse Rate 98 Respiratory Rate 20 Blood Pressure [Right Arm] 181/96 Blood Pressure [Left Arm] 159/87 Blood Pressure 218/114 O2 Sat by Pulse Oximetry 100 - General Limitations: No Limitations General Appearance: Alert, In No Apparent Distress - Head Head Exam: Normal Inspection, Atraumatic - Eyes Eye exam: Normal Appearance, PERRL, EOMI - ENT ENT Exam: Normal Exam External Ear Exam: Normal External Inspection TM/Canal Exam: Bilateral Normal Nose Exam: Normal Nose Exam Mouth Exam: Normal Inspection Throat Exam: Normal Inspection - Neck Neck Exam: Normal Inspection - Chest Chest Inspection: Normal Inspection - Respiratory Respiratory Exam: Normal Lung Sounds Bilat Respiratory Exam: Bilateral Clear to Auscultation - Cardiovascular Cardiovascular Exam: Regular Rate, Normal Rhythm - Abdominal Exam Abdominal Exam: Normal Inspection Abdominal Tenderness: Diffuse - Extremities Extremities Exam: Normal Inspection, Full ROM, Normal Capillary Refill. negative: Edema - Back Back Exam: Normal Inspection, Full ROM - Neurologic Neurological Exam: Alert, Oriented X3, CN II-XII Intact - Psychiatric Psychiatric Exam: Normal Affect - Skin Skin Exam: Warm, Dry, Intact Course - Reevaluation 1st: Improved 2nd: Improved (1000: patient on phone, no complaints; BP decreased) 3rd: Improved (BP 138/64) - Education/Counseling Education/Counseling: Family Educated On: Treatment, Diagnosis, Prognosis, Needs for Follow Up ROR - Labs Reviewed Result Diagrams: 04/28/17 08:44 04/28/17 08:44 Laboratory: WBC 14.3 X10^3/uL (3.6-10.0) H 04/28/17 08:44 RBC 3.42 X10^6/uL (3.5-5.4) L 04/28/17 08:44 Hgb 9.1 g/dL (12.0-16.0) L 04/28/17 08:44 Hct 27.4 % (36.0-47.0) L 04/28/17 08:44 MCV 80.3 fL (80.0-100.0) 04/28/17 08:44 MCH 26.6 pg (27.0-34.0) L 04/28/17 08:44 MCHC 33.2 g/dL (33.0-35.0) 04/28/17 08:44 RDW 14.4 % (11.6-16.5) 04/28/17 08:44 Plt Count 518 X10^3/uL (150.0-450.0) H 04/28/17 08:44 MPV 7.6 fL (7.4-11.0) 04/28/17 08:44 Neut % 70.5 % (42.0-75.0) 04/28/17 08:44 Lymph % 21.0 % (21.0-51.0) 04/28/17 08:44 [place] % 5.2 % (0.0-13.0) 04/28/17 08:44 Eos % 2.1 % (0.9-2.9) 04/28/17 08:44 Baso % 1.2 % (0.2-1.0) H 04/28/17 08:44 Neut # 10.1 x10^3/uL (2.2-4.8) H 04/28/17 08:44 Lymph # 3.0 X10^3/uL (1.3-2.9) H 04/28/17 08:44 [place] # 0.7 x10^3/uL (0.3-0.8) 04/28/17 08:44 Eos # 0.3 x10^3/uL (0.0-0.2) H 04/28/17 08:44 Baso # 0.2 X10^3/uL (0.0-0.1) H 04/28/17 08:44 Absolute Nucleated RBC 0.0 /100WBC 04/28/17 08:44 Sodium 138 mmol/L (136-145) 04/28/17 08:44 Corrected Sodium 143 mmol/L (136-145) 04/28/17 08:44 Potassium 4.9 mmol/L (3.5-5.1) 04/28/17 08:44 Chloride 101 mmol/L (98-107) 04/28/17 08:44 Carbon Dioxide 27.9 mmol/L (21-32) 04/28/17 08:44 BUN 18 mg/dL (7-18) 04/28/17 08:44 Creatinine 1.90 mg/dL (0.55-1.02) H 04/28/17 08:44 Est GFR (MDRD) Af Amer 39 (>60) L 04/28/17 08:44 Est GFR (MDRD) Non-Af 33 (>60) L 04/28/17 08:44 Glucose 290 mg/dL (65-99) H 04/28/17 08:44 POC Glucose (mg/dL) 272 mg/dL (65-99) H 04/28/17 08:54 Calcium 9.0 mg/dL (8.5-10.1) 04/28/17 08:44 Corrected Calcium 10.0 mg/dL (8.5-10.1) 04/28/17 08:44 Total Bilirubin 0.20 mg/dL (0.2-1.0) 04/28/17 08:44 AST 13 Units/L (15-37) L 04/28/17 08:44 ALT 21 Units/L (12-78) 04/28/17 08:44 Alkaline Phosphatase 151 Units/L (46-116) H 04/28/17 08:44 C-Reactive Protein 17.40 mg/L (0-3.0) H 04/28/17 08:44 Total Protein 8.3 g/dL (6.4-8.2) H 04/28/17 08:44 Albumin 2.8 g/dL (3.4-5.0) L 04/28/17 08:44 Globulin 5.5 g/dL (2.5-4.5) H 04/28/17 08:44 Albumin/Globulin Ratio 0.5 Ratio (1.1-2.1) L 04/28/17 08:44 - Diagnosis Discharge Problem: Gastroparesis, Uncontrolled hypertension - Discharge Plan Condition: Stable - Follow ups/Referrals Follow ups/Referrals: KOREY AUGUSTE [Primary Care Provider] - 3 days - Instructions
[2017-04-28] MEDS ORDERED: PHENERGAN INJ 25 MG IV ONE (08:29)
[2017-04-28] MEDS ORDERED: DEMEROL INJ IVP ONE ×2 (08:29→09:28)
[2017-04-28] MEDS ORDERED: PHENERGAN INJ 25 MG ONE (08:29)
[2017-04-28] MEDS ORDERED: NS 1000 ML 1,000 ML IV ONE (08:30)
[2017-04-28] MEDS ORDERED: DEMEROL INJ ONE ×2 (08:30→09:30)
[2017-04-28] MEDS ORDERED: NS 1000 ML 1,000 ML ONE (08:47)
[2017-04-28] MEDS ORDERED: CATAPRES TAB 0.2 MG ONE ×2 (08:47→10:20)
[2017-04-28] MEDS: CATAPRES TAB 0.2 MG PO ONE ×3 (08:48→10:19)
[2017-04-28] MEDS ORDERED: NORMODYNE INJ 100 MG VIAL IVP ONE ×3 (08:56→11:03)
[2017-04-28] MEDS ORDERED: NORMODYNE INJ 20 MG VIAL ONE ×3 (08:57→11:06)
[2017-04-28 09:11] LABS: ALBUMIN 2.8 g/dL (3.4-5.0); BASOPHILS # (AUTO) 0.2 X10^3/uL (0.0-0.1); BASOPHILS % (AUTO) 1.2 % (0.2-1.0); CARBON DIOXIDE 27.9 mmol/L (21-32); CREATININE 1.9 mg/dL (0.55-1.02); EOSINOPHILS # (AUTO) 0.3 x10^3/uL (0.0-0.2); EOSINOPHILS % (AUTO) 2.1 % (0.9-2.9); HEMATOCRIT 27.4 % (36.0-47.0); HEMOGLOBIN 9.1 g/dL (12.0-16.0); MEAN CORPUSCULAR HEMOGLOBIN 26.6 pg (27.0-34.0); MEAN CORPUSCULAR HGB CONC 33.2 g/dL (33.0-35.0); MEAN CORPUSCULAR VOLUME 80.3 fL (80.0-100.0); MEAN PLATELET VOLUME 7.6 fL (7.4-11.0); MONOCYTES # (AUTO) 0.7 x10^3/uL (0.3-0.8); MONOCYTES % (AUTO) 5.2 % (0.0-13.0); NEUTROPHILS # (AUTO) 10.1 x10^3/uL (2.2-4.8); NEUTROPHILS % (AUTO) 70.5 % (42.0-75.0); PLATELET COUNT 518 X10^3/uL (150.0-450.0); RED BLOOD COUNT 3.42 X10^6/uL (3.5-5.4); RED CELL DISTRIBUTION WIDTH 14.4 % (11.6-16.5); TOTAL PROTEIN 8.3 g/dL (6.4-8.2); WHITE BLOOD COUNT 14.3 X10^3/uL (3.6-10.0)
[2017-04-28] MEDS ORDERED: REGLAN INJ 10 MG VIAL IVP ONE (10:00)
[2017-04-28] MEDS ORDERED: REGLAN INJ 10 MG VIAL ONE (10:02)
[2017-04-28 11:19] VITALS: BP 138/64
== END 2017-04-28 11:28 | disposition home or self-care (01) ==
LOC: ER 08:26
DX: K31.84 Gastroparesis (principal); I10 Essential (primary) hypertension
CPT/HCPCS: 36415; 80053; 85025; 86140; 96365; 96374; 96375; 99282; 99283; A4222; J2175; J2550; J2765; J3490

== ENCOUNTER 2017-05-07 04:54 | Emergency (ER) | payer MEDICAID ==
[2017-05-07 05:04] VITALS: BP 225/115; BMI 32.1
[2017-05-07] MEDS ORDERED: NS 1000 ML 1,000 ML IV ONE (05:06)
[2017-05-07] MEDS ORDERED: ZOFRAN INJ 4 MG VIAL IVP ONE (05:07)
[2017-05-07] MEDS ORDERED: NS 1000 ML 1,000 ML ONE (05:07)
[2017-05-07] MEDS ORDERED: ZOFRAN INJ 4 MG VIAL ONE (05:07)
[2017-05-07] MEDS ORDERED: NORMODYNE INJ 100 MG VIAL IVP ONE (05:10)
[2017-05-07] MEDS ORDERED: DEMEROL INJ ONE (05:35)
--- NOTE | 2017-05-07 05:36 | DR.GENAD ---
HPI - PCP Primary Care Physician: BLAIRE - Complaint/Symptoms Chief Complaint Doctors Comments: Patient presents with complaint of nausea and vomiting since earlier today. She has a history of gastroparesis and states that the medication was not helping (zofran). Relative reported that patient went to [facility] on Thursday,[facility] on Thursday with complaint of pain related to her gastroparesis.This history was obtained by relative who took her to those other facilities. Today patient reports that she has been vomiting Chief Complaint:: PT STATES" I'M HAVING NAUSEA VOMITING AND ABD PAIN SINCE LAST NIGHT" - Source History Provided: Patient - Mode of Arrival Mode of Arrival: Ambulatory - Timing Onset of Chief Complaint: 05/06/17 PMH - PMH Past Medical History: Yes Past Medical History: Diabetes, GERD, Hypertension Past Surgical History: Yes Surgical History: Cholecystectomy - Family History History of Family Medical Conditions: Yes Family Medical History: Diabetes Mellitus, Hypertension - Social History Alcohol Use: None Do you use any recreational Drugs:: No Lives With: Family Lives Where: Home - infectious screening In the last 2 months have you had wt loss of >10#?: NO Have you had fever, night sweats or hemotysis?: No Have you traveled outside the country in the last 6 months?: No Isolation: Standard ROS - Review of Systems Eyes: No Symptoms Reported ENTM: No Symptoms Reported Respiratoy: No Symptoms Reported Cardiovascular: No Symptoms Reported Gastrointestinal/Abdominal: No Symptoms Reported Genitourinary: No Symptoms Reported Neurological: No Symptoms Reported Musculoskeletal: No Symptoms Reported Integumentary: No Symptoms Reported Hematologic/Lymphatic: No Symptoms Reported Endocrine: No Symptoms Reported Psychiatric: No Symptoms Reported All Other Systems: Reviewed and Negative PE - Vital Signs Vitals: Temperature 97.8 F Pulse Rate 110 Respiratory Rate 20 Blood Pressure [Right Arm] 181/96 Blood Pressure [Left Arm] 138/64 Blood Pressure 225/115 O2 Sat by Pulse Oximetry 97 - General General Appearance: Alert, In No Apparent Distress - Head Head Exam: Normal Inspection, Atraumatic - Eyes Eye exam: Normal Appearance, PERRL, EOMI - ENT ENT Exam: Normal Exam, Normal Oropharynx External Ear Exam: Normal External Inspection TM/Canal Exam: Bilateral Normal Nose Exam: Normal Nose Exam, Sinus Tenderness Mouth Exam: Normal Inspection, Drooling Throat Exam: Normal Inspection - Neck Neck Exam: Normal Inspection, Full ROM - Chest Chest Inspection: Normal Inspection, Symmetric Chest Wall Rise - Respiratory Respiratory Exam: Normal Lung Sounds Bilat Respiratory Exam: Bilateral Clear to Auscultation - Cardiovascular Cardiovascular Exam: Regular Rate, Normal Rhythm - Abdominal Exam Abdominal Exam: Normal Inspection, Normal Bowel Sounds Abdominal Tenderness: negative: RUQ, RLQ, LUQ, LLQ, Epigastrium, Suprapubic, Diffuse, Mild, Moderate, Severe, Other - Extremities Extremities Exam: Normal Inspection - Back Back Exam: Normal Inspection, Full ROM - Neurologic Neurological Exam: Alert, Oriented X3, CN II-XII Intact - Psychiatric Psychiatric Exam: Normal Affect, Normal Mood - Skin Skin Exam: Warm, Dry, Intact - Diagnosis Discharge Problem: Gastroparesis - Discharge Plan Disposition: 07 AGAINST MEDICAL ADVICE Condition: Stable - Follow ups/Referrals Follow ups/Referrals: KOREY RUDD [Primary Care Provider] - 3 days - Instructions
[2017-05-07] MEDS ORDERED: NORMODYNE INJ 20 MG VIAL ONE (05:37)
[2017-05-07] MEDS ORDERED: DEMEROL INJ IVP ONE (05:38)
[2017-05-07] MEDS ORDERED: PHENERGAN INJ 25 MG IV ONE (05:38)
[2017-05-07 06:29] LABS: CALCIUM 8.6 mg/dL (8.5-10.1); CARBON DIOXIDE 25.9 mmol/L (21-32); CREATININE 1.69 mg/dL (0.55-1.02)
[2017-05-07 06:44] LABS: ALBUMIN 2.9 g/dL (3.4-5.0); COR CA(FOR HYPOALB) 9.5 mg/dL (8.5-10.1); TOTAL PROTEIN 7.8 g/dL (6.4-8.2)
== END 2017-05-07 06:33 | disposition left against medical advice (07) ==
LOC: ER 04:54
DX: K31.84 Gastroparesis (principal)
CPT/HCPCS: 36415; 80053; 82150; 83690; 96365; 96374; 96375; 99282; 99283; A4222; J2175; J2405; J3490

== ENCOUNTER 2017-05-30 03:35 | Emergency (ER) | payer MEDICAID ==
[2017-05-30 03:54] VITALS: BP 185/108; BMI 31.5
--- NOTE | 2017-05-30 05:15 | DR.GENAD ---
HPI - PCP Primary Care Physician: omer - Complaint/Symptoms Chief Complaint Doctors Comments: Patient states she was walking to her bed and got light headed and dizzy and fell on her left humerus where she has a healing fracture from an accident [id number] about six hours ago. States the pain is 10 of 10 worst when she move her arm. She is having diffuse headache and neck pain. States her last period was 18 May 2017 and she is sexually active and is not using any contaceptives. States she has a left prosthesis and falls at times with problem with her balance. She denies nausea, vomiting, blurred vision, chest pain or SOB. Chief Complaint:: patient was walking from living room to the bedroom and got lightheaded and dizzy. patient fell at this time. patient stated she fell on her left arm which is healing from a previous fracture. patient also complaing of nausea at this time. pt. fell at 2300 last night Self Treatment fo Chief Complaint: percocet 5 1 tab taken at 2310 - Nurses notes reviewed Nurses Notes Review: Yes - Source History Provided: Patient - Mode of Arrival Mode of Arrival: Ambulatory - Timing Onset of Chief Complaint: 05/30/17 Came on: Suddenly - Duration Duration: Constant How lon Duration: Hours - Location Location: left humerus and neck pain - Severity Severity: Severe - Modifying Factors Worsens:: movement Improves:: nothing PMH - PMH Past Medical History: Yes Past Medical History: Diabetes, GERD, Hypertension Past Surgical History: Yes Surgical History: Cholecystectomy - Family History History of Family Medical Conditions: Yes Family Medical History: Diabetes Mellitus, Hypertension - Social History Does patient currently use any type of tobacco product: No Have you used tobacco products in the last 12 months: No Type of Tobacco Use: None Does any household member use tobacco: No Alcohol Use: None Do you use any recreational Drugs:: No Lives With: Family Lives Where: Home - infectious screening In the last 2 months have you had wt loss of >10#?: NO Have you had fever, night sweats or hemotysis?: No Have you traveled outside the country in the last 6 months?: No Isolation: Standard ROS - Review of Systems Constitutional: No Symptoms Reported Eyes: No Symptoms Reported. negative: See HPI, Eye Pain, Blurred Vision, Tearing, Discharge, Photophobia, Diplopia, Other ENTM: No Symptoms Reported. negative: See HPI, Ear Pain, Ear Discharge, Pulling on Ears, Hearing Loss, Nose Pain, Nose Discharge, Epistaxis, Nose Congestion, Mouth Pain, Mouth Swelling, Loose Teeth, Drooling, Throat Pain, Throat Swelling, Ear Foreign Body Respiratoy: No Symptoms Reported Cardiovascular: No Symptoms Reported Gastrointestinal/Abdominal: No Symptoms Reported, Nausea Genitourinary: No Symptoms Reported Neurological: No Symptoms Reported, Headache, Problems Walking (left leg prosthesis) Musculoskeletal: No Symptoms Reported, Left, Shoulder, Arm Integumentary: No Symptoms Reported Hematologic/Lymphatic: No Symptoms Reported Endocrine: No Symptoms Reported Psychiatric: No Symptoms Reported PE - Vital Signs Vitals: Temperature 97.9 F Pulse Rate 121 Respiratory Rate 20 Blood Pressure [Right Arm] 181/96 Blood Pressure [Left Arm] 138/64 Blood Pressure 185/108 O2 Sat by Pulse Oximetry 100 - General Limitations: No Limitations General Appearance: In Distress (moderate to severe), Obese - Head Head Exam: Normal Inspection, Atraumatic, Normocephalic - Eyes Eye exam: Normal Appearance, PERRL, EOMI. negative: Scleral Icterus, Conjunctival Injection, Nystagmus, Miosis, Mydrasis, Periorbital Swelling, Periorbital Tenderness, Other - ENT ENT Exam: Normal Exam, Normal Oropharynx, Normal External Ear Exam, Mucous Membranes Moist, TM's Normal Bilaterally External Ear Exam: Normal External Inspection TM/Canal Exam: Bilateral Normal Nose Exam: Normal Nose Exam Mouth Exam: Normal Inspection. negative: Drooling, Trismus, Lip Swelling, Tongue Elevation, Tongue Swelling, Laceration, Other Throat Exam: Normal Inspection. negative: Tonsillar Erythema, Tonsillomegaly, Tonsillar Exudate, R Peritonsillar Mass, L Peritonsillar Mass, Muffled Voice, Other - Neck Neck Exam: Normal Inspection, Full ROM, Trachea Midline. negative: Tenderness, Meningismus, Lymphadenopathy, Thyromegaly, Other - Chest Chest Inspection: Normal Inspection, Symmetric Chest Wall Rise - Respiratory Respiratory Exam: Normal Lung Sounds Bilat. negative: Accessory Muscle Use, Chest Wall Tenderness, Prolonged Expiratory Phase, Respiratory Distress, Stridor , Other Respiratory Exam: Bilateral Clear to Auscultation - Cardiovascular Cardiovascular Exam: Regular Rate, Normal Rhythm, Normal Heart Sounds - Abdominal Exam Abdominal Exam: Normal Bowel Sounds Abdominal Tenderness: negative: RUQ, RLQ, LUQ, LLQ, Epigastrium, Suprapubic, Diffuse, Mild, Moderate, Severe, Other - Extremities Extremities Exam: Normal Inspection, Full ROM, Tenderness (left humerus with swelling; tenderness mid humerus), Normal Capillary Refill - Back Back Exam: Normal Inspection, Full ROM - Neurologic Neurological Exam: Alert, Oriented X3, CN II-XII Intact, Reflexes Normal. negative: Normal Gait (gait not tested) - Psychiatric Psychiatric Exam: Normal Affect, Normal Mood - Skin Skin Exam: Warm, Dry, Intact, Normal Color ROR - Labs Reviewed Laboratory Results Reviewed?: Yes (all labs and x-ray results reviewed and discussed with patient) Result Diagrams: 05/30/17 05:21 05/30/17 05:21 Laboratory: WBC 8.7 X10^3/uL (3.6-10.0) 05/30/17 05:21 RBC 3.91 X10^6/uL (3.5-5.4) 05/30/17 05:21 Hgb 10.7 g/dL (12.0-16.0) L 05/30/17 05:21 Hct 32.2 % (36.0-47.0) L 05/30/17 05:21 MCV 82.2 fL (80.0-100.0) 05/30/17 05:21 MCH 27.2 pg (27.0-34.0) 05/30/17 05:21 MCHC 33.1 g/dL (33.0-35.0) 05/30/17 05:21 RDW 16.3 % (11.6-16.5) 05/30/17 05:21 Plt Count 372 X10^3/uL (150.0-450.0) 05/30/17 05:21 MPV 8.5 fL (7.4-11.0) 05/30/17 05:21 Neut % 63.2 % (42.0-75.0) 05/30/17 05:21 Lymph % 28.3 % (21.0-51.0) 05/30/17 05:21 [place] % 5.5 % (0.0-13.0) 05/30/17 05:21 Eos % 2.0 % (0.9-2.9) 05/30/17 05:21 Baso % 1.0 % (0.2-1.0) 05/30/17 05:21 Neut # 5.5 x10^3/uL (2.2-4.8) H 05/30/17 05:21 Lymph # 2.5 X10^3/uL (1.3-2.9) 05/30/17 05:21 [place] # 0.5 x10^3/uL (0.3-0.8) 05/30/17 05:21 Eos # 0.2 x10^3/uL (0.0-0.2) 05/30/17 05:21 Baso # 0.1 X10^3/uL (0.0-0.1) 05/30/17 05:21 Absolute Nucleated RBC 0.0 /100WBC 05/30/17 05:21 Sodium 138 mmol/L (136-145) 05/30/17 05:21 Corrected Sodium 139 mmol/L (136-145) 05/30/17 05:21 Potassium 3.5 mmol/L (3.5-5.1) 05/30/17 05:21 Chloride 100 mmol/L (98-107) 05/30/17 05:21 Carbon Dioxide 28.8 mmol/L (21-32) 05/30/17 05:21 BUN 18 mg/dL (7-18) 05/30/17 05:21 Creatinine 2.10 mg/dL (0.55-1.02) H 05/30/17 05:21 Est GFR (MDRD) Af Amer 35 (>60) L 05/30/17 05:21 Est GFR (MDRD) Non-Af 29 (>60) L 05/30/17 05:21 Glucose 149 mg/dL (65-99) H 05/30/17 05:21 Calcium 9.5 mg/dL (8.5-10.1) 05/30/17 05:21 Corrected Calcium TNP 05/30/17 05:21 Total Bilirubin 0.40 mg/dL (0.2-1.0) 05/30/17 05:21 AST 13 Units/L (15-37) L 05/30/17 05:21 ALT 18 Units/L (12-78) 05/30/17 05:21 Alkaline Phosphatase 110 Units/L (46-116) 05/30/17 05:21 Total Protein 8.3 g/dL (6.4-8.2) H 05/30/17 05:21 Albumin 3.6 g/dL (3.4-5.0) 05/30/17 05:21 Globulin 4.7 g/dL (2.5-4.5) H 05/30/17 05:21 Albumin/Globulin Ratio 0.8 Ratio (1.1-2.1) L 05/30/17 05:21 HCG, Qual Negative <10 mIU/mL 05/30/17 05:21 - Other Results Comments: CT brain: No acute intracaranial process is identified. Increase density within the posterior right globe is suspicious for retinal hemorrhage. - XRAY XRAY Interpreted by: Radiologist (CT left shoulder: Ines cute fracture or dislocation. Healing distal left humeral fracture with internal and external callus formation) XRAY Findings: CT cervical spine: No evidence for traumatic injury of the cervical spine. - Diagnosis Discharge Problem: Chronic kidney disease (CKD), Essential hypertension Fracture of distal end of left humerus with delayed healing Qualifiers: Fracture type: closed Fracture alignment: nondisplaced Contusion of head Qualifiers: Encounter type: initial encounter Fall Qualifiers: Encounter type: initial encounter Qualified Code(s): W19.XXXA - Unspecified fall, initial encounter Diabetes mellitus Qualifiers: Diabetes mellitus type: type 2 Chronic kidney disease stage: stage 3 (moderate ) - Discharge Plan Disposition: 01 HOME, SELF-CARE Condition: Stable - Follow ups/Referrals Follow ups/Referrals: KOREY RUDD [Primary Care Provider] - 3 days JASON ELLINGTON [STAFF PHYSICIAN] - 3 days - Instructions Instructions: Neck Contusion, Head Injury, Adult, [id number], Fall Prevention in the Home, Type 2 Diabetes Mellitus, Adult, [id number], Humerus Fracture With Rehab-SportsMed
[2017-05-30] MEDS ORDERED: DEMEROL INJ IM ONE (05:18)
[2017-05-30] MEDS ORDERED: PHENERGAN INJ 25 MG IM ONE (05:19)
[2017-05-30 05:40] LABS: BASOPHILS # (AUTO) 0.1 X10^3/uL (0.0-0.1); EOSINOPHILS # (AUTO) 0.2 x10^3/uL (0.0-0.2); HEMATOCRIT 32.2 % (36.0-47.0); HEMOGLOBIN 10.7 g/dL (12.0-16.0); LYMPHOCYTES # (AUTO) 2.5 X10^3/uL (1.3-2.9); LYMPHOCYTES % (AUTO) 28.3 % (21.0-51.0); MEAN CORPUSCULAR HEMOGLOBIN 27.2 pg (27.0-34.0); MEAN CORPUSCULAR HGB CONC 33.1 g/dL (33.0-35.0); MEAN CORPUSCULAR VOLUME 82.2 fL (80.0-100.0); MEAN PLATELET VOLUME 8.5 fL (7.4-11.0); MONOCYTES # (AUTO) 0.5 x10^3/uL (0.3-0.8); MONOCYTES % (AUTO) 5.5 % (0.0-13.0); NEUTROPHILS # (AUTO) 5.5 x10^3/uL (2.2-4.8); NEUTROPHILS % (AUTO) 63.2 % (42.0-75.0); PLATELET COUNT 372 X10^3/uL (150.0-450.0); RED BLOOD COUNT 3.91 X10^6/uL (3.5-5.4); RED CELL DISTRIBUTION WIDTH 16.3 % (11.6-16.5); WHITE BLOOD COUNT 8.7 X10^3/uL (3.6-10.0)
[2017-05-30 05:42] LABS: SERUM PREGNANCY TEST, QUAL NEGATIVE <10 mIU/mL
[2017-05-30 05:48] LABS: ALANINE AMINOTRANSFERASE 18 Units/L (12-78); ALBUMIN 3.6 g/dL (3.4-5.0); ALKALINE PHOSPHATASE 110 Units/L (46-116); ASPARTATE AMINO TRANSFERASE 13 Units/L (15-37); BLOOD UREA NITROGEN 18 mg/dL (7-18); CALCIUM 9.5 mg/dL (8.5-10.1); CARBON DIOXIDE 28.8 mmol/L (21-32); CHLORIDE 100 mmol/L (98-107); COR NA(FOR HYPERGLY) 139 mmol/L (136-145); SODIUM 138 mmol/L (136-145); TOTAL PROTEIN 8.3 g/dL (6.4-8.2); eGFR BLACK RACES 35 (>60); eGFR NON BLACK RACES 29 (>60)
[2017-05-30] MEDS ORDERED: PHENERGAN INJ 25 MG ONE (06:01)
[2017-05-30] MEDS ORDERED: DEMEROL INJ ONE (06:01)
--- NOTE | 2017-05-30 06:37 | CT ---
CT brain without contrast Indication: Dizziness and lightheaded with fall Comparison: None available Technique: Multiple axial images of the brain were obtained from the skull base to the vertex without administra tion of IV contrast. Findings: There is increased density within the posterior right globe suspicious for a retinal hemorrhage. No acute intraparenchymal hemorrhage or mass can be identified. No extra-axial fluid collections are seen. No alteration in the attenuation of the brain parenchyma can be identified to suggest acute o r subacute ischemic change. The ventricular system is symmetric and nondilated. The extracranial st ructures are grossly unremarkable. IMPRESSION: No acute intracranial process is identified. Increased density within the posterior right globe is suspicious for retinal hemorrhage, correlation with pension adviser examination is recommended. Reported By:
--- NOTE | 2017-05-30 06:39 | CT ---
CT cervical spine without contrast Indication: Neck pain after fall Comparison: None available Technique: Multiple axial images of the cervical spine were obtained from the skull base to the thora cic inlet without administration of IV contrast. Sagittal and coronal reformats were performed and r eviewed. Findings: Alignment of the cervical spine is maintained. No evidence for acute cortical disruption or subluxat ion can be seen. The posterior elements appear unremarkable. The prevertebral soft tissues are norm al in their appearance. In addition, the surrounding paraspinous soft tissues are unremarkable. IMPRESSION: 1. No evidence for traumatic injury of the cervical spine. Reported By:
--- NOTE | 2017-05-30 06:44 | CT ---
CT left shoulder without contrast Indication: Left shoulder pain after fall Technique: 2 mm axial images of the left shoulder without IV contrast administration. Coronal and sag ittal reformatted images were provided. Findings: Left AC and glenohumeral joint spaces and alignment are maintained. No acute fracture is id entified. No localizing soft tissue swelling. No displaced left-sided rib fracture. Within the distal left arm there is a subacute, healing distal left humeral fracture. No residual fra cture lucency is identified with bridging internal and external callus formation. Impression: 1. No acute fracture or dislocation within the left shoulder. No localizing soft tissue swelling. 2.Healing distal left humeral fracture with internal and external callus formation bridging the site of previous fracture, no residual fracture lucency identified. Reported By:
== END 2017-05-30 07:24 | disposition home or self-care (01) ==
LOC: ER 03:35
DX: N18.3 Chronic kidney disease, stage 3 (moderate) (principal); I10 Essential (primary) hypertension; S42.402A Unspecified fracture of lower end of left humerus, initial encounter for closed fracture; S00.93XA Contusion of unspecified part of head, initial encounter; E11.22 Type 2 diabetes mellitus with diabetic chronic kidney disease; W19.XXXA Unspecified fall, initial encounter; Y92.9 Unspecified place or not applicable
CPT/HCPCS: 36415; 70450; 72125; 73200; 80053; 84703; 85025; 96372; 99283; J2175; J2550

== ENCOUNTER 2017-07-01 07:01 | Inpatient (IN) | payer MEDICAID ==
--- NOTE | 2017-07-01 07:24 | DR.NAUSEAF ---
HPI - Time Seen Time seen: 07:18 - Primary Care Physician Primary Care Physician: BLAIRE STAPLETON - Complaints Chief Complaint Doctors Comments: Patient presents with complaint of vomiting and abdominal pain onset on yesterday. She was seen by Dr Rudd on yesterday for her gastroparesis. She admits to 02/24 pain, sharp. Chief Complaint:: N/V/ ABD PAIN... Self Treatment fo Chief Complaint: ZOFRAN. - Source History Provided: Patient - Mode of Arrival Mode of Arrival: Ambulatory - Timing Onset of Chief Complaint: 06/30/17 <GORDY MAY - Last Filed: 07/01/17 07:58> PMH - PMH Past Medical History: Yes Past Medical History: Diabetes, Hypertension Past Medical History Comment: GASTROPORESIS, Past Surgical History: Yes Surgical History: Cholecystectomy Past Surgical History Comment: PARTIAL HYS, - Family History History of Family Medical Conditions: No Family Medical History: Diabetes Mellitus, Hypertension - Social History Does patient currently use any type of tobacco product: No Have you used tobacco products in the last 12 months: No Type of Tobacco Use: None Does any household member use tobacco: No Alcohol Use: None Do you use any recreational Drugs:: No Lives With: Family Lives Where: Home - infectious screening In the last 2 months have you had wt loss of >10#?: NO Have you had fever, night sweats or hemotysis?: No Have you traveled outside the country in the last 6 months?: No Isolation: Standard <GORDY MAY - Last Filed: 07/01/17 07:58> ROS - Review of Systems Eyes: No Symptoms Reported ENTM: No Symptoms Reported Respiratoy: No Symptoms Reported Cardiovascular: No Symptoms Reported Gastrointestinal/Abdominal: No Symptoms Reported Genitourinary: No Symptoms Reported Neurological: No Symptoms Reported Musculoskeletal: No Symptoms Reported Integumentary: No Symptoms Reported Hematologic/Lymphatic: No Symptoms Reported Endocrine: No Symptoms Reported, Increased Hunger All Other Systems: Reviewed and Negative <GORDY MAY - Last Filed: 07/01/17 07:58> PE - General General Appearance: Alert, Anxious - Head Head Exam: Normal Inspection, Atraumatic - Eyes Eye exam: Normal Appearance, PERRL, EOMI - ENT ENT Exam: Normal Exam - Neck Neck Exam: Normal Inspection, Full ROM - Chest Chest Inspection: Normal Inspection - Respiratory Respiratory Exam: Normal Lung Sounds Bilat Respiratory Exam: Bilateral Clear to Auscultation - Cardiovascular Cardiovascular Exam: Regular Rate, Normal Rhythm - Abdominal Exam Abdominal Exam: Normal Inspection Abdominal Tenderness: Diffuse - Rectal Rectal Exam: Deferred - External Exam: Female: Deferred : Speculum Exam (Female): Deferred : Bimanual Exam (female): Deferred - Extremities Extremities Exam: Normal Inspection, Full ROM, Other (-) - Back Back Exam: Normal Inspection, Full ROM - Neurologic Neurological Exam: Alert, Oriented X3, CN II-XII Intact - Psychiatric Psychiatric Exam: Normal Affect - Skin Skin Exam: Warm, Dry, Intact <GORDY MAY - Last Filed: 07/01/17 07:58> - Vital Signs Vitals: Temperature 96.2 F Pulse Rate [Left Brachial] 118 Pulse Rate 112 Respiratory Rate 20 Blood Pressure [Right Arm] 181/96 Blood Pressure [Left Arm] 164/83 Blood Pressure 258/141 O2 Sat by Pulse Oximetry 99 MDM - Differential Diagnosis Differential Diagnosis: Considerations may Include:: Bowel Obstruction, Cholecystitis, Diabetes/DKA, Gastroenteritis, Pancreatitis, Urinary Tract Infection (GASTROPARESIS) <IRAM TORO - Last Filed: 07/01/17 09:09> Course - Treatment Treatment: SEE ORDERS. - Consultation Consultation Comments: DISCUSS PATIENT WITH DR. RUDD. HE WILL ADMIT PATIENT. - Education/Counseling Education/Counseling: Patient, Education Educated On: Treatment, Diagnosis <IARM TORO - Last Filed: 07/01/17 09:09> ROR - Labs Reviewed Result Diagrams: 07/01/17 07:41 07/01/17 07:41 <GORDY MAY - Last Filed: 07/01/17 07:58> - Labs Reviewed Laboratory Results Reviewed?: Yes Result Diagrams: 07/01/17 07:41 07/01/17 07:41 - XRAY XRAY Interpreted by: Radiologist XRAY Findings: REPORT DISCUSS WITH PATIENT. <IRAM TORO - Last Filed: 07/01/17 09:09> - Labs Reviewed Laboratory: WBC 9.6 X10^3/uL (3.6-10.0) 07/01/17 07:41 RBC 3.90 X10^6/uL (3.5-5.4) 07/01/17 07:41 Hgb 10.8 g/dL (12.0-16.0) L 07/01/17 07:41 Hct 32.4 % (36.0-47.0) L 07/01/17 07:41 MCV 83.2 fL (80.0-100.0) 07/01/17 07:41 MCH 27.8 pg (27.0-34.0) 07/01/17 07:41 MCHC 33.4 g/dL (33.0-35.0) 07/01/17 07:41 RDW 16.0 % (11.6-16.5) 07/01/17 07:41 Plt Count 367 X10^3/uL (150.0-450.0) 07/01/17 07:41 MPV 8.6 fL (7.4-11.0) 07/01/17 07:41 Neut % 70.6 % (42.0-75.0) 07/01/17 07:41 Lymph % 21.4 % (21.0-51.0) 07/01/17 07:41 Roberts % 4.9 % (0.0-13.0) 07/01/17 07:41 Eos % 2.3 % (0.9-2.9) 07/01/17 07:41 Baso % 0.8 % (0.2-1.0) 07/01/17 07:41 Neut # 6.8 x10^3/uL (2.2-4.8) H 07/01/17 07:41 Lymph # 2.0 X10^3/uL (1.3-2.9) 07/01/17 07:41 Roberts # 0.5 x10^3/uL (0.3-0.8) 07/01/17 07:41 Eos # 0.2 x10^3/uL (0.0-0.2) 07/01/17 07:41 Baso # 0.1 X10^3/uL (0.0-0.1) 07/01/17 07:41 Absolute Nucleated RBC 0.0 /100WBC 07/01/17 07:41 Sodium 138 mmol/L (136-145) 07/01/17 07:41 Corrected Sodium 140 mmol/L (136-145) 07/01/17 07:41 Potassium 4.3 mmol/L (3.5-5.1) 07/01/17 07:41 Chloride 104 mmol/L (98-107) 07/01/17 07:41 Carbon Dioxide 24.1 mmol/L (21-32) 07/01/17 07:41 BUN 19 mg/dL (7-18) H 07/01/17 07:41 Creatinine 1.40 mg/dL (0.55-1.02) H 07/01/17 07:41 Est GFR (MDRD) Af Amer 56 (>60) L 07/01/17 07:41 Est GFR (MDRD) Non-Af 46 (>60) L 07/01/17 07:41 Glucose 189 mg/dL (65-99) H 07/01/17 07:41 Calcium 9.3 mg/dL (8.5-10.1) 07/01/17 07:41 Corrected Calcium 9.9 mg/dL (8.5-10.1) 07/01/17 07:41 Total Bilirubin 0.20 mg/dL (0.2-1.0) 07/01/17 07:41 AST 13 Units/L (15-37) L 07/01/17 07:41 ALT 13 Units/L (12-78) 07/01/17 07:41 Alkaline Phosphatase 108 Units/L (46-116) 07/01/17 07:41 C-Reactive Protein 4.50 mg/L (0-3.0) H 07/01/17 07:41 Total Protein 8.0 g/dL (6.4-8.2) 07/01/17 07:41 Albumin 3.3 g/dL (3.4-5.0) L 07/01/17 07:41 Globulin 4.7 g/dL (2.5-4.5) H 07/01/17 07:41 Albumin/Globulin Ratio 0.7 Ratio (1.1-2.1) L 07/01/17 07:41 Amylase 119 Units/L (25-115) H 07/01/17 07:41 Lipase 597 Units/L (73-393) H 07/01/17 07:41 Acetone, Semi-Quant Negative (NEGATIVE) 07/01/17 07:40 Influenza Type A (PCR) Negative (NEGATIVE) 07/01/17 07:43 Influenza Type B (PCR) Negative (NEGATIVE) 07/01/17 07:43 <GORDY MAY - Last Filed: 07/01/17 07:58> <IRAM TORO - Last Filed: 07/01/17 09:09> - Diagnosis Discharge Problem: Gastroparesis Acute pancreatitis Qualifiers: Pancreatitis type: unspecified pancreatitis type Acute pancreatitis complication: unspecified Qualified Code(s): K85.90 - Acute pancreatitis without necrosis or infection, unspecified Abdominal pain Qualifiers: Abdominal location: generalized Qualified Code(s): R10.84 - Generalized abdominal pain - Discharge Plan Disposition: ADMITTED INPATIENT Condition: Stable - Follow ups/Referrals Follow ups/Referrals: KOREY RUDD [Primary Care Provider] - 3 days - Instructions
[2017-07-01] MEDS ORDERED: NS 1000 ML 1,000 ML IV ONE (07:26)
[2017-07-01] MEDS ORDERED: PHENERGAN INJ 25 MG IV ONE (07:27)
[2017-07-01] MEDS ORDERED: DEMEROL INJ IVP ONE (07:28)
[2017-07-01] MEDS ORDERED: NS 1000 ML 1,000 ML ONE (07:29)
[2017-07-01] MEDS ORDERED: PHENERGAN INJ 25 MG ONE (07:29)
[2017-07-01] MEDS ORDERED: DEMEROL INJ ONE (07:44)
[2017-07-01 07:58] LABS: BASOPHILS # (AUTO) 0.1 X10^3/uL (0.0-0.1); BASOPHILS % (AUTO) 0.8 % (0.2-1.0); EOSINOPHILS # (AUTO) 0.2 x10^3/uL (0.0-0.2); EOSINOPHILS % (AUTO) 2.3 % (0.9-2.9); HEMATOCRIT 32.4 % (36.0-47.0); HEMOGLOBIN 10.8 g/dL (12.0-16.0); LYMPHOCYTES % (AUTO) 21.4 % (21.0-51.0); MEAN CORPUSCULAR HEMOGLOBIN 27.8 pg (27.0-34.0); MEAN CORPUSCULAR HGB CONC 33.4 g/dL (33.0-35.0); MEAN CORPUSCULAR VOLUME 83.2 fL (80.0-100.0); MEAN PLATELET VOLUME 8.6 fL (7.4-11.0); MONOCYTES # (AUTO) 0.5 x10^3/uL (0.3-0.8); MONOCYTES % (AUTO) 4.9 % (0.0-13.0); NEUTROPHILS # (AUTO) 6.8 x10^3/uL (2.2-4.8); NEUTROPHILS % (AUTO) 70.6 % (42.0-75.0); PLATELET COUNT 367 X10^3/uL (150.0-450.0); WHITE BLOOD COUNT 9.6 X10^3/uL (3.6-10.0)
--- NOTE | 2017-07-01 08:01 | RAD ---
HISTORY: Vomiting Study: Acute abdominal series Comparison: 04/16/2017, CT abdomen pelvis 04/07/2017 Findings: The trachea is midline. The cardiac silhouette is unremarkable. The lungs are clear without focal i nfiltrate or effusion. The bony thorax is unremarkable. There is a poor present on the left. Flat plate and upright evaluation of the abdomen demonstrates a nonspecific, nonobstructive bowel gas pattern. No pneumoperitoneum is identified.. No pathological soft tissue mass or calcification can be observed. A calcification overlying the left transverse process of L2 was demonstrated to represe nt a phlebolith on the prior CT. The bony structures are grossly intact. IMPRESSION: 1. No acute cardiopulmonary disease. 2. No evidence for acute abdominal pathology identified. Reported By:
[2017-07-01 08:08] LABS: ALBUMIN 3.3 g/dL (3.4-5.0); C-REACTIVE PROTEIN 4.5 mg/L (0-3.0); CALCIUM 9.3 mg/dL (8.5-10.1); CARBON DIOXIDE 24.1 mmol/L (21-32); COR CA(FOR HYPOALB) 9.9 mg/dL (8.5-10.1); CREATININE 1.4 mg/dL (0.55-1.02)
[2017-07-01] MEDS: DILAUDID INJ IVP PRN ×4 (08:53→22:18)
[2017-07-01] MEDS ORDERED: PEPCID 20 MG IV PREMIX* 20 MG/50 ML BAG IV PRN (08:54)
[2017-07-01] MEDS ORDERED: ZOFRAN INJ 4 MG VIAL IVP PRN (08:54)
[2017-07-01] MEDS ORDERED: MORPHINE SULFATE INJ 2 MG INJ IVP PRN (08:54)
[2017-07-01] MEDS: NS 1000 ML 1,000 ML IV SCH ×3 (08:55→22:22)
[2017-07-01] MEDS ORDERED: PATIENT'S HOME MEDICATION (Alprazolam [Alprazolam] 1 MG) PO SCH (09:00)
[2017-07-01] MEDS: KLONOPIN TAB 1 MG PO SCH ×2 (10:09→20:47)
[2017-07-01] MEDS: NORVASC TAB 5 MG PO SCH (10:10)
[2017-07-01] MEDS: ZESTRIL TAB 10 MG PO SCH (10:10)
[2017-07-01] MEDS: XANAX PO SCH ×2 (10:10→20:46)
[2017-07-01] MEDS: PHENERGAN INJ 25 MG IV PRN ×2 (13:00→22:18)
[2017-07-01] MEDS ORDERED: DILAUDID INJ ONE (17:27)
[2017-07-01 17:51] LABS: BILIRUBIN,URINE NEGATIVE (NEGATIVE); BLOOD/HEMOGLOBIN,URINE 5+ (NEGATIVE); GLUCOSE, URINE NEGATIVE (NEGATIVE); KETONES,URINE NEGATIVE (NEGATIVE); LEUKOCYTE ESTERASE ,URINE 3+ (NEGATIVE); NITRITES,URINE NEGATIVE (NEGATIVE); PROTEIN,URINE 1+ (NEGATIVE); UROBILINOGEN,URINE NORMAL (NORMAL)
[2017-07-01 18:00] LABS: APPEARANCE,URINE CLOUDY (CLEAR); BACTERIA,URINE 1+ /HPF (NEGATIVE); COLOR,URINE YELLOW (YELLOW); SQUAMOUS EPITHELIAL CELL,UR RARE /HPF (NEGATIVE)
[2017-07-01] MEDS: AMBIEN PO SCH (20:46)
[2017-07-02] MEDS: DILAUDID INJ IVP PRN ×4 (02:45→18:10)
[2017-07-02] MEDS: PHENERGAN INJ 25 MG IV PRN ×4 (03:40→18:10)
[2017-07-02 05:19] VITALS: BMI 30.5
[2017-07-02 06:24] LABS: BASOPHILS # (AUTO) 0.1 X10^3/uL (0.0-0.1); BASOPHILS % (AUTO) 0.7 % (0.2-1.0); EOSINOPHILS # (AUTO) 0.3 x10^3/uL (0.0-0.2); HEMATOCRIT 27.8 % (36.0-47.0); HEMOGLOBIN 9.3 g/dL (12.0-16.0); LYMPHOCYTES # (AUTO) 3.1 X10^3/uL (1.3-2.9); LYMPHOCYTES % (AUTO) 37.7 % (21.0-51.0); MEAN CORPUSCULAR HEMOGLOBIN 27.8 pg (27.0-34.0); MEAN CORPUSCULAR HGB CONC 33.5 g/dL (33.0-35.0); MEAN PLATELET VOLUME 8.8 fL (7.4-11.0); MONOCYTES # (AUTO) 0.6 x10^3/uL (0.3-0.8); MONOCYTES % (AUTO) 6.9 % (0.0-13.0); NEUTROPHILS # (AUTO) 4.2 x10^3/uL (2.2-4.8); NEUTROPHILS % (AUTO) 50.7 % (42.0-75.0); PLATELET COUNT 298 X10^3/uL (150.0-450.0); RED BLOOD COUNT 3.34 X10^6/uL (3.5-5.4); WHITE BLOOD COUNT 8.3 X10^3/uL (3.6-10.0)
[2017-07-02 06:48] LABS: ALANINE AMINOTRANSFERASE 13 Units/L (12-78); ALBUMIN 2.9 g/dL (3.4-5.0); ALKALINE PHOSPHATASE 92 Units/L (46-116); AMYLASE 57 Units/L (25-115); ASPARTATE AMINO TRANSFERASE 12 Units/L (15-37); BLOOD UREA NITROGEN 12 mg/dL (7-18); CALCIUM 8.6 mg/dL (8.5-10.1); CARBON DIOXIDE 20.7 mmol/L (21-32); CHLORIDE 107 mmol/L (98-107); COR CA(FOR HYPOALB) 9.5 mg/dL (8.5-10.1); CREATININE 1.07 mg/dL (0.55-1.02); LIPASE 184 Units/L (73-393); SODIUM 140 mmol/L (136-145); TOTAL PROTEIN 7.1 g/dL (6.4-8.2); eGFR BLACK RACES > 60 (>60); eGFR NON BLACK RACES > 60 (>60)
[2017-07-02] MEDS: XANAX PO SCH ×2 (08:15→20:20)
[2017-07-02] MEDS: ZESTRIL TAB 10 MG PO SCH (08:16)
[2017-07-02] MEDS: NORVASC TAB 5 MG PO SCH (08:16)
[2017-07-02] MEDS: KLONOPIN TAB 1 MG PO SCH ×2 (08:16→20:20)
[2017-07-02] MEDS: NS 1000 ML 1,000 ML IV SCH (08:21)
[2017-07-02] MEDS ORDERED: NORCO 10/325 TAB PO PRN (09:25)
[2017-07-02] MEDS ORDERED: REGLAN INJ 10 MG VIAL IVP PRN (09:25)
[2017-07-02] MEDS: D5 1/2 NS 1000 ML 1,000 ML IV SCH (09:25)
[2017-07-02] MEDS: BENTYL I.M. INJ 10 MG IM SCH ×4 (10:44→20:20)
[2017-07-02] MEDS: COLACE CAP 100 MG PO SCH ×2 (10:44→20:20)
[2017-07-02] MEDS: AMBIEN PO SCH (20:20)
[2017-07-02] MEDS: PEPCID 20 MG IV PREMIX* 20 MG/50 ML BAG IV SCH (20:20)
[2017-07-03] MEDS: D5 1/2 NS 1000 ML 1,000 ML IV SCH ×3 (00:03→10:07)
[2017-07-03 05:24] LABS: BASOPHILS % (AUTO) 0.5 % (0.2-1.0); EOSINOPHILS # (AUTO) 0.3 x10^3/uL (0.0-0.2); EOSINOPHILS % (AUTO) 3.4 % (0.9-2.9); HEMATOCRIT 30.3 % (36.0-47.0); LYMPHOCYTES # (AUTO) 2.7 X10^3/uL (1.3-2.9); LYMPHOCYTES % (AUTO) 35.5 % (21.0-51.0); MEAN CORPUSCULAR HEMOGLOBIN 27.9 pg (27.0-34.0); MEAN CORPUSCULAR HGB CONC 33.1 g/dL (33.0-35.0); MEAN CORPUSCULAR VOLUME 84.1 fL (80.0-100.0); MEAN PLATELET VOLUME 8.8 fL (7.4-11.0); MONOCYTES # (AUTO) 0.5 x10^3/uL (0.3-0.8); MONOCYTES % (AUTO) 7.1 % (0.0-13.0); NEUTROPHILS % (AUTO) 53.5 % (42.0-75.0); PLATELET COUNT 330 X10^3/uL (150.0-450.0); RED BLOOD COUNT 3.61 X10^6/uL (3.5-5.4); RED CELL DISTRIBUTION WIDTH 16.1 % (11.6-16.5); WHITE BLOOD COUNT 7.5 X10^3/uL (3.6-10.0)
[2017-07-03 05:36] LABS: ALANINE AMINOTRANSFERASE 10 Units/L (12-78); ALBUMIN 2.9 g/dL (3.4-5.0); ALKALINE PHOSPHATASE 96 Units/L (46-116); ASPARTATE AMINO TRANSFERASE 11 Units/L (15-37); BLOOD UREA NITROGEN 10 mg/dL (7-18); CALCIUM 9.2 mg/dL (8.5-10.1); CARBON DIOXIDE 24.1 mmol/L (21-32); CHLORIDE 107 mmol/L (98-107); COR CA(FOR HYPOALB) 10.1 mg/dL (8.5-10.1); CREATININE 1.11 mg/dL (0.55-1.02); SODIUM 140 mmol/L (136-145); TOTAL PROTEIN 7.3 g/dL (6.4-8.2); eGFR BLACK RACES > 60 (>60); eGFR NON BLACK RACES > 60 (>60)
[2017-07-03] MEDS: DILAUDID INJ IVP PRN ×5 (06:01→22:09)
[2017-07-03] MEDS: PHENERGAN INJ 25 MG IV PRN ×5 (06:01→22:10)
[2017-07-03] MEDS: BENTYL I.M. INJ 10 MG IM SCH ×4 (08:02→20:48)
[2017-07-03] MEDS: PEPCID 20 MG IV PREMIX* 20 MG/50 ML BAG IV SCH ×2 (08:03→20:44)
[2017-07-03] MEDS: NORVASC TAB 5 MG PO SCH (08:03)
[2017-07-03] MEDS: ZESTRIL TAB 10 MG PO SCH (08:03)
[2017-07-03] MEDS: XANAX PO SCH ×2 (08:03→20:42)
[2017-07-03] MEDS: KLONOPIN TAB 1 MG PO SCH ×2 (08:03→20:42)
[2017-07-03] MEDS: AMBIEN PO SCH (20:42)
[2017-07-03] MEDS: COLACE CAP 100 MG PO SCH (20:42)
[2017-07-04] MEDS: D5 1/2 NS 1000 ML 1,000 ML IV SCH (00:12)
[2017-07-04] MEDS: DILAUDID INJ IVP PRN ×3 (01:55→10:10)
[2017-07-04] MEDS: PHENERGAN INJ 25 MG IV PRN ×2 (06:11→13:50)
[2017-07-04 06:13] LABS: BASOPHILS # (AUTO) 0.1 X10^3/uL (0.0-0.1); BASOPHILS % (AUTO) 0.8 % (0.2-1.0); EOSINOPHILS # (AUTO) 0.3 x10^3/uL (0.0-0.2); HEMATOCRIT 26.7 % (36.0-47.0); LYMPHOCYTES # (AUTO) 3.1 X10^3/uL (1.3-2.9); LYMPHOCYTES % (AUTO) 42.9 % (21.0-51.0); MEAN CORPUSCULAR HEMOGLOBIN 28.2 pg (27.0-34.0); MEAN CORPUSCULAR HGB CONC 33.7 g/dL (33.0-35.0); MEAN CORPUSCULAR VOLUME 83.9 fL (80.0-100.0); MEAN PLATELET VOLUME 8.6 fL (7.4-11.0); MONOCYTES # (AUTO) 0.6 x10^3/uL (0.3-0.8); MONOCYTES % (AUTO) 8.1 % (0.0-13.0); NEUTROPHILS # (AUTO) 3.2 x10^3/uL (2.2-4.8); NEUTROPHILS % (AUTO) 44.2 % (42.0-75.0); PLATELET COUNT 293 X10^3/uL (150.0-450.0); RED BLOOD COUNT 3.18 X10^6/uL (3.5-5.4); WHITE BLOOD COUNT 7.2 X10^3/uL (3.6-10.0)
[2017-07-04 06:17] LABS: ALANINE AMINOTRANSFERASE 11 Units/L (12-78); ALBUMIN 2.7 g/dL (3.4-5.0); ALKALINE PHOSPHATASE 89 Units/L (46-116); ASPARTATE AMINO TRANSFERASE 11 Units/L (15-37); BLOOD UREA NITROGEN 12 mg/dL (7-18); CALCIUM 8.6 mg/dL (8.5-10.1); CARBON DIOXIDE 23.7 mmol/L (21-32); CHLORIDE 108 mmol/L (98-107); COR CA(FOR HYPOALB) 9.6 mg/dL (8.5-10.1); SODIUM 139 mmol/L (136-145); TOTAL PROTEIN 6.7 g/dL (6.4-8.2); eGFR BLACK RACES 56 (>60); eGFR NON BLACK RACES 46 (>60)
[2017-07-04] MEDS: BENTYL I.M. INJ 10 MG IM SCH (10:06)
[2017-07-04] MEDS: XANAX PO SCH (10:09)
[2017-07-04] MEDS: ZESTRIL TAB 10 MG PO SCH (10:09)
[2017-07-04] MEDS: KLONOPIN TAB 1 MG PO SCH (10:10)
[2017-07-04] MEDS: NORVASC TAB 5 MG PO SCH (10:10)
[2017-07-04] MEDS: PEPCID 20 MG IV PREMIX* 20 MG/50 ML BAG IV SCH (10:13)
[2017-07-04] MEDS ORDERED: CYMBALTA PO SCH (12:00)
[2017-07-04 12:43] VITALS: BP 128/65
--- NOTE | 2017-07-04 13:00 | RAD ---
HISTORY: Vomiting Study: KUB Comparison: None Findings: Evaluation of the abdomen demonstrates a normal bowel gas pattern. No pathological soft tissue mass or calcification can be observed. The bony structures are grossly intact. IMPRESSION: 1. No evidence for acute abdominal pathology identified. Reported By:
== END 2017-07-04 14:20 | disposition left against medical advice (07) | DRG 391 ==
LOC: ER 07:19 → OBS 09:17 → MED/SURG 14:50
PROVIDERS: ADMIT Internal Medicine; ATTEND Internal Medicine
DX: R10.84 Generalized abdominal pain (principal); E11.43 Type 2 diabetes mellitus with diabetic autonomic (poly)neuropathy; K85.90 Acute pancreatitis without necrosis or infection, unspecified; K31.84 Gastroparesis; R11.2 Nausea with vomiting, unspecified; I10 Essential (primary) hypertension; Z89.512 Acquired absence of left leg below knee; H54.7 Unspecified visual loss; R26.89 Other abnormalities of gait and mobility; R10.12 Left upper quadrant pain
CPT/HCPCS: 36415; 74018; 74022; 80053; 81001; 82009; 82150; 83690; 85025; 86140; 87086; 87502; 96365; 96374; 96375; 99283; 99284; A4222; S0028; J0500; J1170; J2175; J2405; J2550; J7042

== ENCOUNTER 2017-07-06 18:28 | Emergency (ER) | payer MEDICAID ==
[2017-07-06 18:37] VITALS: BP 122/61; BMI 30.5
--- NOTE | 2017-07-06 19:16 | DR.GENAD ---
HPI - PCP Primary Care Physician: DR. RUDD - HPI Comment HPI Comment: PATIENT DENIES DIARRHEA. SHE IS UNABLE TO KEEP DOWN FLUIDS OR HER MEDICATION. PATIENT HAVE PEVIOUS FRACTURE TO LEFT ARM. NO FEVER OR DYSURIA. - Complaint/Symptoms Chief Complaint Doctors Comments: FELL AT HOME AND INJURED LEFT ARM. N/V AND ABDOMINA PAIN SINCE THIS MORNING. HISTORY DIABETIC GASTROPARESIS. Chief Complaint:: PT D/C FROM [facility] 2 DAYS AGO C/O ABD PAIN AND N/V THAT STARTED THIS AM ,,, PT C/O FALLING AND HAVING LEFT ARM PAIN .. BR Self Treatment fo Chief Complaint: ZOFRAN 8 MG, PERCOCET AND SHE COULD NOT KEEP IT DOWN . - Nurses notes reviewed Nurses Notes Review: Yes - Source History Provided: Patient - Mode of Arrival Mode of Arrival: Ambulatory - Timing Onset of Chief Complaint: 07/05/17 Came on: Suddenly - Duration Duration: Constant Duration: Days - Severity Severity: Moderate PMH - PMH Past Medical History: Yes Past Medical History: Diabetes, Hypertension Past Surgical History: Yes Surgical History: Cholecystectomy, Hysterectomy, Ortho Surgery, Other - Family History History of Family Medical Conditions: Yes Family Medical History: Hypertension - Social History Does patient currently use any type of tobacco product: No Have you used tobacco products in the last 12 months: No Type of Tobacco Use: None Does any household member use tobacco: No Alcohol Use: None Do you use any recreational Drugs:: No Lives With: Family Lives Where: Home - infectious screening In the last 2 months have you had wt loss of >10#?: NO Have you had fever, night sweats or hemotysis?: No Have you traveled outside the country in the last 6 months?: No Isolation: Standard ROS - Review of Systems Constitutional: Weakness, Fatigue. negative: Chills, Fever Eyes: No Symptoms Reported. negative: Eye Pain, Discharge ENTM: negative: Ear Pain, Nose Discharge, Nose Congestion, Throat Pain Respiratoy: negative: Productive Cough, Non-Productive Cough, Short of Breath, Wheezing, Hemoptysis Cardiovascular: negative: Chest Pain Gastrointestinal/Abdominal: Abdominal Pain, Nausea, Vomiting Genitourinary: No Symptoms Reported. negative: Dysuria, Frequency, Hematuria Neurological: Weakness Musculoskeletal: Left, Arm Integumentary: No Symptoms Reported Hematologic/Lymphatic: No Symptoms Reported Endocrine: negative: Flushing, Increased Thirst, Increased Urine All Other Systems: Reviewed and Negative PE - Vital Signs Vitals: Temperature 97.0 F Pulse Rate 97 Respiratory Rate 20 Blood Pressure [Right Arm] 128/65 Blood Pressure [Left Arm] 131/80 Blood Pressure 122/61 O2 Sat by Pulse Oximetry 99 - General Limitations: No Limitations General Appearance: Alert - Head Head Exam: Normal Inspection - Eyes Eye exam: Normal Appearance - ENT ENT Exam: Normal External Ear Exam External Ear Exam: Normal External Inspection TM/Canal Exam: Bilateral Normal Nose Exam: Normal Nose Exam Mouth Exam: Normal Inspection Throat Exam: Normal Inspection - Neck Neck Exam: Trachea Midline - Chest Chest Inspection: Symmetric Chest Wall Rise - Respiratory Respiratory Exam: Normal Lung Sounds Bilat Respiratory Exam: Bilateral Clear to Auscultation - Cardiovascular Cardiovascular Exam: Regular Rate, Normal Rhythm, Normal Heart Sounds - Abdominal Exam Abdominal Exam: Normal Bowel Sounds, Soft, Tenderness Abdominal Tenderness: Diffuse, Moderate - Extremities Extremities Exam: Tenderness (LEFT SHOULDER ANDARM TENDER.PULSE INTACT. ROM DECREASE.) - Back Back Exam: Normal Inspection - Neurologic Neurological Exam: Alert, Oriented X3, CN II-XII Intact. negative: Motor Sensory Deficit - Psychiatric Psychiatric Exam: Anxious - Skin Skin Exam: Normal Color MDM - Additional Information Additional Information Obtained From: Family - Differential Diagnosis Differential Diagnosis: ABDOMINAL PAIN, GASTROPARESIS, LEFT SHOULDER SPRAIN, LEFT ARM FRACTURE UTI. Course - Treatment Treatment: SEE ORDERS. IM AND IV PAIN MED IN ED. - Education/Counseling Education/Counseling: Patient, Family, Education Educated On: Treatment, Diagnosis, Needs for Follow Up ROR - Labs Reviewed Laboratory Results Reviewed?: Yes Result Diagrams: 07/06/17 20:15 07/06/17 20:15 Laboratory: WBC 9.7 X10^3/uL (3.6-10.0) 07/06/17 20:15 RBC 3.39 X10^6/uL (3.5-5.4) L 07/06/17 20:15 Hgb 9.4 g/dL (12.0-16.0) L 07/06/17 20:15 Hct 28.2 % (36.0-47.0) L 07/06/17 20:15 MCV 83.1 fL (80.0-100.0) 07/06/17 20:15 MCH 27.6 pg (27.0-34.0) 07/06/17 20:15 MCHC 33.3 g/dL (33.0-35.0) 07/06/17 20:15 RDW 15.9 % (11.6-16.5) 07/06/17 20:15 Plt Count 306 X10^3/uL (150.0-450.0) 07/06/17 20:15 MPV 8.5 fL (7.4-11.0) 07/06/17 20:15 Neut % 45.9 % (42.0-75.0) 07/06/17 20:15 Lymph % 39.3 % (21.0-51.0) 07/06/17 20:15 Gove % 9.8 % (0.0-13.0) 07/06/17 20:15 Eos % 4.1 % (0.9-2.9) H 07/06/17 20:15 Baso % 0.9 % (0.2-1.0) 07/06/17 20:15 Neut # 4.5 x10^3/uL (2.2-4.8) 07/06/17 20:15 Lymph # 3.8 X10^3/uL (1.3-2.9) H 07/06/17 20:15 Gove # 1.0 x10^3/uL (0.3-0.8) H 07/06/17 20:15 Eos # 0.4 x10^3/uL (0.0-0.2) H 07/06/17 20:15 Baso # 0.1 X10^3/uL (0.0-0.1) 07/06/17 20:15 Absolute Nucleated RBC 0.1 /100WBC 07/06/17 20:15 Sodium 139 mmol/L (136-145) 07/06/17 20:15 Corrected Sodium TNP 07/06/17 20:15 Potassium 4.0 mmol/L (3.5-5.1) 07/06/17 20:15 Chloride 104 mmol/L (98-107) 07/06/17 20:15 Carbon Dioxide 26.4 mmol/L (21-32) 07/06/17 20:15 BUN 12 mg/dL (7-18) 07/06/17 20:15 Creatinine 1.92 mg/dL (0.55-1.02) H 07/06/17 20:15 Est GFR (MDRD) Af Amer 39 (>60) L 07/06/17 20:15 Est GFR (MDRD) Non-Af 32 (>60) L 07/06/17 20:15 Glucose 109 mg/dL (65-99) H 07/06/17 20:15 Calcium 8.4 mg/dL (8.5-10.1) L 07/06/17 20:15 Corrected Calcium 9.4 mg/dL (8.5-10.1) 07/06/17 20:15 Total Bilirubin 0.10 mg/dL (0.2-1.0) L 07/06/17 20:15 AST 14 Units/L (15-37) L 07/06/17 20:15 ALT 16 Units/L (12-78) 07/06/17 20:15 Alkaline Phosphatase 94 Units/L (46-116) 07/06/17 20:15 Total Protein 7.1 g/dL (6.4-8.2) 07/06/17 20:15 Albumin 2.8 g/dL (3.4-5.0) L 07/06/17 20:15 Globulin 4.3 g/dL (2.5-4.5) 07/06/17 20:15 Albumin/Globulin Ratio 0.7 Ratio (1.1-2.1) L 07/06/17 20:15 Amylase 52 Units/L (25-115) 07/06/17 20:15 Lipase 169 Units/L (73-393) 07/06/17 20:15 Specimen Type Clean catch urine 07/06/17 20:18 Urine Color Yellow (YELLOW) 07/06/17 20:18 Urine Appearance Slightly hazy (CLEAR) 07/06/17 20:18 Urine pH 5.0 (5.0 - 8.0) 07/06/17 20:18 Ur Specific [place] 1.015 (1.000-1.030) 07/06/17 20:18 Urine Protein 1+ (NEGATIVE) 07/06/17 20:18 Urine Glucose (UA) Negative (NEGATIVE) 07/06/17 20:18 Urine Ketones Negative (NEGATIVE) 07/06/17 20:18 Urine Occult Blood 5+ (NEGATIVE) 07/06/17 20:18 Urine Nitrite Negative (NEGATIVE) 07/06/17 20:18 Urine Bilirubin Negative (NEGATIVE) 07/06/17 20:18 Urine Urobilinogen Normal (NORMAL) 07/06/17 20:18 Ur Leukocyte Esterase 3+ (NEGATIVE) 07/06/17 20:18 Urine RBC Tntc /HPF (NEGATIVE) 07/06/17 20:18 Urine WBC 15-25 /HPF (NEGATIVE) 07/06/17 20:18 Ur Squamous Epith Cells Moderate /HPF (NEGATIVE) 07/06/17 20:18 Urine Bacteria Trace /HPF (NEGATIVE) 07/06/17 20:18 Ur Culture Indicated? Yes/culture set up 07/06/17 20:18 - XRAY XRAY Interpreted by: Radiologist XRAY Findings: REPORT DISCUSS WITH PATIENT AND FAMILY. - Diagnosis Discharge Problem: Sprain of shoulder, left, Abdominal pain, Gastroparesis, UTI (urinary tract infection) - Discharge Plan Disposition: 01 HOME, SELF-CARE Condition: Stable Prescriptions: Levofloxacin [LEVAQUIN TAB 500 MG *] 500 mg PO DAILY #7 tab Promethazine HCl [Phenergan Supp 25 mg] 25 mg OR Q8H PRN #12 supp.rect PRN Reason: Nausea/Vomiting - Follow ups/Referrals Follow ups/Referrals: KOREY RUDD [Primary Care Provider] - 3 days - Instructions Instructions: Shoulder Sprain, Abdominal Pain, Adult, [id number], Urinary Tract Infection, Adult, Gastroparesis Additional Instructions: RETURN TO ED IF WORSE.
[2017-07-06] MEDS ORDERED: PHENERGAN INJ 25 MG IV ONE (19:27)
[2017-07-06] MEDS ORDERED: DILAUDID INJ IM ONE (19:27)
[2017-07-06] MEDS ORDERED: DILAUDID INJ IVP ONE (19:45)
[2017-07-06] MEDS ORDERED: PHENERGAN INJ 25 MG ONE (19:50)
[2017-07-06] MEDS ORDERED: DILAUDID INJ ONE (19:51)
--- NOTE | 2017-07-06 20:17 | RAD ---
HISTORY: Status post fall with left arm pain Study: Two views left humerus Comparison: May 30, 2017 Findings: There is an old healed distal left humeral diaphyseal fracture without definite new acute cortical di sruption identified. There is mild dorsal apex angulation. IMPRESSION: Old left humeral fracture without new acute radiographic abnormality. Reported By:
--- NOTE | 2017-07-06 20:19 | RAD ---
HISTORY: Vomiting, abdominal pain, nausea, gastroparesis, diabetes Study: KUB, single view abdomen Comparison: July 04, 2017 Findings: Evaluation of the abdomen demonstrates a normal bowel gas pattern. There are phleboliths in the pelv is. The bony structures are grossly intact. Cholecystectomy clips are noted. IMPRESSION: No evidence for acute abdominal pathology identified. Reported By:
--- NOTE | 2017-07-06 20:19 | RAD ---
Left forearm-two views Indication: Pain after fall. Findings: Radius and ulna are intact. There is no cortical lucency seen. Impression: No acute left radius or ulnar fracture Reported By:
--- NOTE | 2017-07-06 20:24 | RAD ---
Left shoulder-two views Indication: Pain after fall Findings: There is distal shaft left humerus fracture, partially visualized. The glenohumeral acromio clavicular joints are intact. Impression: Partially visualized distal shaft left humerus fracture. Shoulder is grossly intact. Reported By:
[2017-07-06 20:28] LABS: BASOPHILS # (AUTO) 0.1 X10^3/uL (0.0-0.1); BASOPHILS % (AUTO) 0.9 % (0.2-1.0); EOSINOPHILS # (AUTO) 0.4 x10^3/uL (0.0-0.2); EOSINOPHILS % (AUTO) 4.1 % (0.9-2.9); HEMATOCRIT 28.2 % (36.0-47.0); HEMOGLOBIN 9.4 g/dL (12.0-16.0); LYMPHOCYTES # (AUTO) 3.8 X10^3/uL (1.3-2.9); LYMPHOCYTES % (AUTO) 39.3 % (21.0-51.0); MEAN CORPUSCULAR HEMOGLOBIN 27.6 pg (27.0-34.0); MEAN CORPUSCULAR HGB CONC 33.3 g/dL (33.0-35.0); MEAN CORPUSCULAR VOLUME 83.1 fL (80.0-100.0); MEAN PLATELET VOLUME 8.5 fL (7.4-11.0); MONOCYTES % (AUTO) 9.8 % (0.0-13.0); NEUTROPHILS # (AUTO) 4.5 x10^3/uL (2.2-4.8); NEUTROPHILS % (AUTO) 45.9 % (42.0-75.0); PLATELET COUNT 306 X10^3/uL (150.0-450.0); RED BLOOD COUNT 3.39 X10^6/uL (3.5-5.4); RED CELL DISTRIBUTION WIDTH 15.9 % (11.6-16.5); WHITE BLOOD COUNT 9.7 X10^3/uL (3.6-10.0)
[2017-07-06 20:35] LABS: BILIRUBIN,URINE NEGATIVE (NEGATIVE); BLOOD/HEMOGLOBIN,URINE 5+ (NEGATIVE); GLUCOSE, URINE NEGATIVE (NEGATIVE); KETONES,URINE NEGATIVE (NEGATIVE); LEUKOCYTE ESTERASE ,URINE 3+ (NEGATIVE); NITRITES,URINE NEGATIVE (NEGATIVE); PROTEIN,URINE 1+ (NEGATIVE); UROBILINOGEN,URINE NORMAL (NORMAL)
[2017-07-06 20:37] LABS: ALANINE AMINOTRANSFERASE 16 Units/L (12-78); ALBUMIN 2.8 g/dL (3.4-5.0); ALKALINE PHOSPHATASE 94 Units/L (46-116); AMYLASE 52 Units/L (25-115); ASPARTATE AMINO TRANSFERASE 14 Units/L (15-37); BLOOD UREA NITROGEN 12 mg/dL (7-18); CALCIUM 8.4 mg/dL (8.5-10.1); CARBON DIOXIDE 26.4 mmol/L (21-32); CHLORIDE 104 mmol/L (98-107); COR CA(FOR HYPOALB) 9.4 mg/dL (8.5-10.1); CREATININE 1.92 mg/dL (0.55-1.02); LIPASE 169 Units/L (73-393); SODIUM 139 mmol/L (136-145); TOTAL PROTEIN 7.1 g/dL (6.4-8.2); eGFR BLACK RACES 39 (>60); eGFR NON BLACK RACES 32 (>60)
[2017-07-06 20:44] LABS: APPEARANCE,URINE SLIGHTLY HAZY (CLEAR); BACTERIA,URINE TRACE /HPF (NEGATIVE); COLOR,URINE YELLOW (YELLOW); RBC,URINE TNTC /HPF (NEGATIVE); SQUAMOUS EPITHELIAL CELL,UR MODERATE /HPF (NEGATIVE)
[2017-07-06] MEDS ORDERED: PHENERGAN SUPP 25 MG PR PRN (21:10)
[2017-07-06] MEDS ORDERED: PHENERGAN SUPP 25 MG ONE (21:12)
[2017-07-06] MEDS ORDERED: DEMEROL INJ IM ONE (21:12)
[2017-07-06] MEDS ORDERED: DEMEROL INJ ONE (21:16)
== END 2017-07-06 22:00 | disposition home or self-care (01) ==
LOC: ER 18:41
DX: S43.402A Unspecified sprain of left shoulder joint, initial encounter (principal); R10.84 Generalized abdominal pain; K31.84 Gastroparesis; N39.0 Urinary tract infection, site not specified; W19.XXXA Unspecified fall, initial encounter; Y92.009 Unspecified place in unspecified non-institutional (private) residence as the place of occurrence of the external cause
CPT/HCPCS: 36415; 73030; 73060; 73090; 74018; 80053; 81001; 82150; 83690; 85025; 87086; 96365; 96372; 96374; 96375; 99283; 99284; J2175; J2550

== ENCOUNTER 2017-07-09 03:07 | Observation (INO) | payer MEDICAID ==
--- NOTE | 2017-07-09 03:37 | DR.GENAD ---
HPI - PCP Primary Care Physician: Molina - Complaint/Symptoms Chief Complaint Doctors Comments: Pt presents with intractable abd pain with NV. Pt states it's her gastroparesis again. Multiple workups recently from similar flares. Chief Complaint:: PT C/O AND PAIN. N/V. ONSET LAST NIGHT. PT HAS CHRONIC ABD PAIN AND HAS BEEN SEEN MULTIPLE TIMES FOR SAME. PT STATES THAT SHE HAS VOMITED UP HER BP MEDS MULTIPLE TIMES. - Nurses notes reviewed Nurses Notes Review: Yes - Source History Provided: Patient - Mode of Arrival Mode of Arrival: Ambulatory - Timing Onset of Chief Complaint: 07/09/17 - Duration Duration: Since Onset - Severity Severity: Severe PMH - PMH Past Medical History: Yes Past Medical History: Diabetes, Hypertension Past Medical History Comment: hx gastroparesis with frequent exacerbations Past Surgical History: Yes Surgical History: Cholecystectomy, Hysterectomy, Ortho Surgery, Other Past Surgical History Comment: s/p enrique - Family History History of Family Medical Conditions: Yes Family Medical History: Hypertension - Social History Do you use any recreational Drugs:: No - infectious screening Have you traveled outside the country in the last 6 months?: No ROS - Review of Systems Constitutional: See HPI Eyes: No Symptoms Reported ENTM: No Symptoms Reported Respiratoy: No Symptoms Reported Cardiovascular: No Symptoms Reported Gastrointestinal/Abdominal: Abdominal Pain, Nausea, Vomiting Genitourinary: No Symptoms Reported Neurological: No Symptoms Reported Musculoskeletal: No Symptoms Reported Integumentary: No Symptoms Reported Hematologic/Lymphatic: No Symptoms Reported Endocrine: No Symptoms Reported Psychiatric: No Symptoms Reported All Other Systems: Reviewed and Negative PE - Vital Signs Vitals: Temperature 97.4 F Pulse Rate 106 Respiratory Rate 18 Blood Pressure [Right Arm] 128/65 Blood Pressure [Left Arm] 131/80 Blood Pressure 215/105 O2 Sat by Pulse Oximetry 100 - General General Appearance: Alert, In Distress, Obese - Head Head Exam: Normal Inspection - Eyes Eye exam: Normal Appearance. negative: Scleral Icterus - ENT ENT Exam: Normal Exam Throat Exam: Normal Inspection - Neck Neck Exam: Normal Inspection - Chest Chest Inspection: Normal Inspection - Respiratory Respiratory Exam: Normal Lung Sounds Bilat Respiratory Exam: Bilateral Clear to Auscultation - Cardiovascular Cardiovascular Exam: Regular Rate - Abdominal Exam Abdominal Exam: Normal Bowel Sounds, Soft, Tenderness, Guarding. negative: Rigidity - Extremities Extremities Exam: Normal Inspection, Full ROM, Tenderness - Back Back Exam: Normal Inspection. negative: (R) CVA Tenderness, (L) CVA Tenderness - Neurologic Neurological Exam: Alert, Oriented X3 - Psychiatric Psychiatric Exam: Anxious - Skin Skin Exam: Warm, Dry, Intact ROR - Labs Reviewed Laboratory Results Reviewed?: Yes (lipase 345, glucose 195, acetone neg) Result Diagrams: 07/09/17 04:20 07/09/17 03:50 Laboratory: WBC 9.9 X10^3/uL (3.6-10.0) 07/09/17 04:20 RBC 3.70 X10^6/uL (3.5-5.4) 07/09/17 04:20 Hgb 10.2 g/dL (12.0-16.0) L 07/09/17 04:20 Hct 30.8 % (36.0-47.0) L 07/09/17 04:20 MCV 83.1 fL (80.0-100.0) 07/09/17 04:20 MCH 27.6 pg (27.0-34.0) 07/09/17 04:20 MCHC 33.3 g/dL (33.0-35.0) 07/09/17 04:20 RDW 15.9 % (11.6-16.5) 07/09/17 04:20 Plt Count 316 X10^3/uL (150.0-450.0) 07/09/17 04:20 MPV 8.6 fL (7.4-11.0) 07/09/17 04:20 Neut % 65.8 % (42.0-75.0) 07/09/17 04:20 Lymph % 22.9 % (21.0-51.0) 07/09/17 04:20 [place] % 6.2 % (0.0-13.0) 07/09/17 04:20 Eos % 4.1 % (0.9-2.9) H 07/09/17 04:20 Baso % 1.0 % (0.2-1.0) 07/09/17 04:20 Neut # 6.6 x10^3/uL (2.2-4.8) H 07/09/17 04:20 Lymph # 2.3 X10^3/uL (1.3-2.9) 07/09/17 04:20 Jerauld # 0.6 x10^3/uL (0.3-0.8) 07/09/17 04:20 Eos # 0.4 x10^3/uL (0.0-0.2) H 07/09/17 04:20 Baso # 0.1 X10^3/uL (0.0-0.1) 07/09/17 04:20 Absolute Nucleated RBC 0.0 /100WBC 07/09/17 04:20 Sodium 138 mmol/L (136-145) 07/09/17 03:50 Corrected Sodium 140 mmol/L (136-145) 07/09/17 03:50 Potassium 4.1 mmol/L (3.5-5.1) 07/09/17 03:50 Chloride 102 mmol/L (98-107) 07/09/17 03:50 Carbon Dioxide 26.4 mmol/L (21-32) 07/09/17 03:50 BUN 12 mg/dL (7-18) 07/09/17 03:50 Creatinine 1.50 mg/dL (0.55-1.02) H 07/09/17 03:50 Est GFR (MDRD) Af Amer 52 (>60) L 07/09/17 03:50 Est GFR (MDRD) Non-Af 43 (>60) L 07/09/17 03:50 Glucose 195 mg/dL (65-99) H 07/09/17 03:50 Calcium 9.1 mg/dL (8.5-10.1) 07/09/17 03:50 Corrected Calcium TNP 07/09/17 03:50 Total Bilirubin 0.10 mg/dL (0.2-1.0) L 07/09/17 03:50 AST 12 Units/L (15-37) L 07/09/17 03:50 ALT 19 Units/L (12-78) 07/09/17 03:50 Alkaline Phosphatase 115 Units/L (46-116) 07/09/17 03:50 Total Protein 8.1 g/dL (6.4-8.2) 07/09/17 03:50 Albumin 3.4 g/dL (3.4-5.0) 07/09/17 03:50 Globulin 4.7 g/dL (2.5-4.5) H 07/09/17 03:50 Albumin/Globulin Ratio 0.7 Ratio (1.1-2.1) L 07/09/17 03:50 Amylase 106 Units/L (25-115) 07/09/17 03:50 Lipase 345 Units/L (73-393) 07/09/17 03:50 HCG, Qual Negative <10 mIU/mL 07/09/17 03:50 Specimen Type Clean catch urine 07/09/17 04:27 Urine Color Yellow (YELLOW) 07/09/17 04:27 Urine Appearance Clear (CLEAR) 07/09/17 04:27 Urine pH 5.0 (5.0 - 8.0) 07/09/17 04:27 Ur Specific [place] 1.010 (1.000-1.030) 07/09/17 04:27 Urine Protein Negative (NEGATIVE) 07/09/17 04:27 Urine Glucose (UA) Negative (NEGATIVE) 07/09/17 04:27 Urine Ketones Negative (NEGATIVE) 07/09/17 04:27 Urine Occult Blood 4+ (NEGATIVE) 07/09/17 04:27 Urine Nitrite Negative (NEGATIVE) 07/09/17 04:27 Urine Bilirubin Negative (NEGATIVE) 07/09/17 04:27 Urine Urobilinogen Normal (NORMAL) 07/09/17 04:27 Ur Leukocyte Esterase 3+ (NEGATIVE) 07/09/17 04:27 Urine RBC 15-25 /HPF (NONE SEEN) 07/09/17 04:27 Urine WBC 3-7 /HPF (NONE SEEN) 07/09/17 04:27 Ur Squamous Epith Cells Many /HPF (NEGATIVE) 07/09/17 04:27 Urine Bacteria Negative /HPF (NEGATIVE) 07/09/17 04:27 Ur Culture Indicated? No/not indicated 07/09/17 04:27 Acetone, Semi-Quant Negative (NEGATIVE) 07/09/17 03:50 - XRAY XRAY Findings: pt declines repeat CT, had one several days ago - Diagnosis Discharge Problem: Uncontrolled hypertension, Gastroparesis diabeticorum Abdominal pain Qualifiers: Abdominal location: generalized Qualified Code(s): R10.84 - Generalized abdominal pain - Discharge Plan Disposition: ADMITTED INPATIENT Condition: Stable - Follow ups/Referrals Follow ups/Referrals: KOREY AUGUSTE [Primary Care Provider] - 3 days - Instructions Additional Notes - Additional Notes Additional Notes: Spoke with Dr Auguste, will admity for symptom control, Dr Auguste suggests dilaudid 1mg IV Q4hr for pain
[2017-07-09] MEDS ORDERED: PHENERGAN INJ 25 MG IV ONE (03:41)
[2017-07-09] MEDS ORDERED: NS 1000 ML 1,000 ML IV ONE (03:41)
[2017-07-09] MEDS ORDERED: LEVSIN/MAALOX/LIDOC VISC PO ONE (03:42)
[2017-07-09] MEDS ORDERED: NS 1000 ML 1,000 ML ONE (03:48)
[2017-07-09] MEDS ORDERED: PHENERGAN INJ 25 MG ONE (03:49)
[2017-07-09] MEDS ORDERED: LEVSIN/MAALOX/LIDOC VISC ONE (03:49)
[2017-07-09 03:58] LABS: BASOPHILS # (AUTO) 0.1 X10^3/uL (0.0-0.1); MEAN CORPUSCULAR HEMOGLOBIN 27.6 pg (27.0-34.0)
[2017-07-09 04:07] LABS: ALANINE AMINOTRANSFERASE 19 Units/L (12-78); ALBUMIN 3.4 g/dL (3.4-5.0); ALKALINE PHOSPHATASE 115 Units/L (46-116); AMYLASE 106 Units/L (25-115); ASPARTATE AMINO TRANSFERASE 12 Units/L (15-37); BLOOD UREA NITROGEN 12 mg/dL (7-18); CALCIUM 9.1 mg/dL (8.5-10.1); CARBON DIOXIDE 26.4 mmol/L (21-32); CHLORIDE 102 mmol/L (98-107); COR NA(FOR HYPERGLY) 140 mmol/L (136-145); LIPASE 345 Units/L (73-393); SODIUM 138 mmol/L (136-145); TOTAL PROTEIN 8.1 g/dL (6.4-8.2); eGFR BLACK RACES 52 (>60); eGFR NON BLACK RACES 43 (>60)
[2017-07-09] MEDS ORDERED: ATIVAN INJ 2 MG VIAL IVP STA (04:16)
[2017-07-09] MEDS ORDERED: ATIVAN INJ 2 MG VIAL ONE (04:17)
[2017-07-09 04:18] LABS: SERUM PREGNANCY TEST, QUAL NEGATIVE <10 mIU/mL
[2017-07-09 04:37] LABS: EOSINOPHILS # (AUTO) 0.4 x10^3/uL (0.0-0.2); EOSINOPHILS % (AUTO) 4.1 % (0.9-2.9); HEMATOCRIT 30.8 % (36.0-47.0); HEMOGLOBIN 10.2 g/dL (12.0-16.0); LYMPHOCYTES # (AUTO) 2.3 X10^3/uL (1.3-2.9); LYMPHOCYTES % (AUTO) 22.9 % (21.0-51.0); MEAN CORPUSCULAR HGB CONC 33.3 g/dL (33.0-35.0); MEAN CORPUSCULAR VOLUME 83.1 fL (80.0-100.0); MEAN PLATELET VOLUME 8.6 fL (7.4-11.0); MONOCYTES # (AUTO) 0.6 x10^3/uL (0.3-0.8); MONOCYTES % (AUTO) 6.2 % (0.0-13.0); NEUTROPHILS # (AUTO) 6.6 x10^3/uL (2.2-4.8); NEUTROPHILS % (AUTO) 65.8 % (42.0-75.0); PLATELET COUNT 316 X10^3/uL (150.0-450.0); RED CELL DISTRIBUTION WIDTH 15.9 % (11.6-16.5); WHITE BLOOD COUNT 9.9 X10^3/uL (3.6-10.0)
[2017-07-09 04:53] LABS: BILIRUBIN,URINE NEGATIVE (NEGATIVE); BLOOD/HEMOGLOBIN,URINE 4+ (NEGATIVE); GLUCOSE, URINE NEGATIVE (NEGATIVE); KETONES,URINE NEGATIVE (NEGATIVE); LEUKOCYTE ESTERASE ,URINE 3+ (NEGATIVE); NITRITES,URINE NEGATIVE (NEGATIVE); PROTEIN,URINE NEGATIVE (NEGATIVE); UROBILINOGEN,URINE NORMAL (NORMAL)
[2017-07-09 05:03] LABS: APPEARANCE,URINE CLEAR (CLEAR); BACTERIA,URINE NEGATIVE /HPF (NEGATIVE); COLOR,URINE YELLOW (YELLOW); RBC,URINE 15-25 /HPF (NONE SEEN); SQUAMOUS EPITHELIAL CELL,UR MANY /HPF (NEGATIVE)
[2017-07-09] MEDS ORDERED: NORMODYNE INJ 20 MG VIAL ONE (05:13)
[2017-07-09] MEDS ORDERED: NORMODYNE INJ 100 MG VIAL IVP ONE ×2 (05:30→05:32)
[2017-07-09] MEDS ORDERED: DILAUDID INJ ONE ×2 (06:06→21:26)
[2017-07-09] MEDS: NS 1000 ML 1,000 ML IV SCH ×4 (06:13→21:40)
[2017-07-09] MEDS: DILAUDID INJ IVP PRN ×4 (06:15→21:34)
[2017-07-09] MEDS: LEVAQUIN TAB 500 MG PO SCH (06:15)
[2017-07-09 06:20] VITALS: BMI 29.2
[2017-07-09] MEDS ORDERED: NORMODYNE INJ 20 MG VIAL IVP PRN (08:17)
[2017-07-09] MEDS: PHENERGAN INJ 25 MG IVP PRN ×3 (10:30→21:31)
[2017-07-09] MEDS: XANAX PO SCH ×2 (10:30→21:30)
[2017-07-09] MEDS: ZESTRIL TAB 10 MG PO SCH (10:30)
[2017-07-09] MEDS ORDERED: HumuLIN R SC PRN (10:44)
--- NOTE | 2017-07-09 12:55 | DR.H&P ---
H&P - History & Physical for Day of: H&P Date: 07/09/17 - Chief Complaint Chief Complaint: LEFT UPPER ABDOMINAL PAIN, N/V - Allergies Allergies/Adverse Reactions: Allergies Allergy/AdvReac Type Severity Reaction Status Date / Time Penicillins Allergy Verified 07/06/17 18:33 ceftazidime [From Fortaz] AdvReac Verified 07/06/17 18:33 morphine AdvReac Verified 07/06/17 18:33 - History of Present Illness History of Present Illness: PT IS 31 BF ER ADMISSION AFTER PRESENTING WITH CO UPPER ABDOMINAL PAIN AND N/V. PT WAS HYPERTENSIVE ON ADMISSION. PT WAS RECENTLY IN [facility] FOR SAME SYMPTOMS AND SIGNED OUT AMA ON THURSDAY. PT STATES SHE NEED TO " GO HOME TO SEE EYE DR". PT HAD LABS ON ADMISSION. PLAN TO TREAT HYPERTENSIVE URGENCY WITH IV HYDRALAZINE, BLOOD SUGAR AND BLOOD PRESSURE CONTROL. PAIN AND NAUSEA MANAGEMENT - Past Medical History Past Medical History: Diabetes, Hypertension Additional Medical History: MORBID OBESITY - Past Surgical History Surgical History: Cholecystectomy, Hysterectomy, Ortho Surgery, Other - Family History Family Medical History: Diabetes Mellitus, Hypertension - Social History Does patient currently use any type of tobacco product: No Have you used tobacco products in the last 12 months: No Type of Tobacco Use: None Does any household member use tobacco: No Alcohol Use: None Drug Use: None - Review of Systems Constitutional: Weakness Eyes: No Symptoms Reported ENT: No Symptoms Reported Respiratory: SOB with Excertion Cardiovascular: No Symptoms Reported Gastrointestinal: No Symptoms Reported Genitourinary: No Symptoms Reported Musculoskeletal: No Symptoms Reported Skin: No Symptoms Reported Neurological: No Symptoms Reported - Physical Exam Vital Signs: Temperature 97.9 F Pulse Rate [Left Brachial] 99 Pulse Rate 106 Respiratory Rate 16 Blood Pressure [Right Arm] 168/78 Blood Pressure [Left Arm] 233/101 Blood Pressure 215/105 O2 Sat by Pulse Oximetry 100 Oriented: Normal Eyes: Normal Ear: Normal Nose: Normal Throat: Normal Respiratory: RLL Diminished, LLL Diminished Cardiovascular: Normal : Normal Auscultation: Bowel Sounds: Decreased Tenderness: LUQ Skin: Normal Musculoskeletal: Deformity Psychiatric: Anxiety - Assessment/Plan (1) Abdominal pain Qualifiers: Abdominal location: generalized Qualified Code(s): R10.84 - Generalized abdominal pain Status: Acute Plan: NPO, IV HYDRATION. BLOOD PRESSURE CONTROL, BLOOD SUGAR CONTROL. PAIN CONTROL, NAUSEA CONTROL. RESUME HOME MEDS (2) Gastroparesis diabeticorum Status: Acute (3) Uncontrolled hypertension Status: Acute (4) Chronic kidney disease (CKD) Status: Acute (5) Essential hypertension Status: Acute (6) UTI (urinary tract infection) Status: Acute
[2017-07-09] MEDS: ARTIFICIAL TEARS DROPS AFFEYE SCH ×2 (17:25→21:31)
[2017-07-10] MEDS: DILAUDID INJ IVP PRN ×3 (03:09→14:53)
[2017-07-10] MEDS: NS 1000 ML 1,000 ML IV SCH ×3 (05:05→13:34)
[2017-07-10 06:05] LABS: BASOPHILS # (AUTO) 0.1 X10^3/uL (0.0-0.1); BASOPHILS % (AUTO) 0.6 % (0.2-1.0); EOSINOPHILS # (AUTO) 0.4 x10^3/uL (0.0-0.2); EOSINOPHILS % (AUTO) 4.5 % (0.9-2.9); HEMATOCRIT 26.3 % (36.0-47.0); HEMOGLOBIN 8.8 g/dL (12.0-16.0); LYMPHOCYTES # (AUTO) 2.7 X10^3/uL (1.3-2.9); LYMPHOCYTES % (AUTO) 32.8 % (21.0-51.0); MEAN CORPUSCULAR HEMOGLOBIN 27.9 pg (27.0-34.0); MEAN CORPUSCULAR HGB CONC 33.6 g/dL (33.0-35.0); MEAN PLATELET VOLUME 8.5 fL (7.4-11.0); MONOCYTES # (AUTO) 0.5 x10^3/uL (0.3-0.8); MONOCYTES % (AUTO) 6.6 % (0.0-13.0); NEUTROPHILS # (AUTO) 4.5 x10^3/uL (2.2-4.8); NEUTROPHILS % (AUTO) 55.5 % (42.0-75.0); PLATELET COUNT 259 X10^3/uL (150.0-450.0); RED BLOOD COUNT 3.17 X10^6/uL (3.5-5.4); RED CELL DISTRIBUTION WIDTH 15.9 % (11.6-16.5); WHITE BLOOD COUNT 8.1 X10^3/uL (3.6-10.0)
[2017-07-10 06:38] LABS: ALANINE AMINOTRANSFERASE 13 Units/L (12-78); ALBUMIN 2.8 g/dL (3.4-5.0); ALKALINE PHOSPHATASE 94 Units/L (46-116); ASPARTATE AMINO TRANSFERASE 12 Units/L (15-37); BLOOD UREA NITROGEN 8 mg/dL (7-18); CALCIUM 8.6 mg/dL (8.5-10.1); CARBON DIOXIDE 26.1 mmol/L (21-32); CHLORIDE 104 mmol/L (98-107); COR CA(FOR HYPOALB) 9.6 mg/dL (8.5-10.1); CREATININE 1.26 mg/dL (0.55-1.02); SODIUM 139 mmol/L (136-145); TOTAL PROTEIN 7.1 g/dL (6.4-8.2); eGFR BLACK RACES > 60 (>60); eGFR NON BLACK RACES 52 (>60)
[2017-07-10] MEDS ORDERED: DILAUDID INJ ONE ×2 (08:42→14:35)
[2017-07-10] MEDS: XANAX PO SCH (09:02)
[2017-07-10] MEDS: LEVAQUIN TAB 500 MG PO SCH (09:02)
[2017-07-10] MEDS: ZESTRIL TAB 10 MG PO SCH (09:02)
[2017-07-10] MEDS: PHENERGAN INJ 25 MG IVP PRN ×2 (09:03→14:54)
[2017-07-10] MEDS: ARTIFICIAL TEARS DROPS AFFEYE SCH ×2 (09:04→12:37)
[2017-07-10 16:50] VITALS: BP 167/89
== END 2017-07-10 16:50 | disposition home or self-care (01) ==
LOC: ER 03:07 → MED/SURG 05:17
PROVIDERS: ADMIT Internal Medicine; ATTEND Internal Medicine
DX: R10.84 Generalized abdominal pain (principal); R11.2 Nausea with vomiting, unspecified; E11.65 Type 2 diabetes mellitus with hyperglycemia; I10 Essential (primary) hypertension; K31.84 Gastroparesis
CPT/HCPCS: 36415; 36591; 80053; 81001; 82009; 82150; 83690; 84703; 85025; 96365; 96374; 96375; 99283; 99284; G0378; J1170; J2060; J2550; J3490

== ENCOUNTER 2017-07-12 11:59 | Emergency (ER) | payer MEDICAID ==
[2017-07-12 12:02] VITALS: BP 109/65; BMI 29.9
--- NOTE | 2017-07-12 12:36 | DR.NAUSEAF ---
HPI - Time Seen Time seen: 12:30 - Primary Care Physician Primary Care Physician: BLAIRE - HPI Comment HPI Comment: Patient presents with complaint of - Complaints Chief Complaint Doctors Comments: Patient presents with complaint of vomiting, nausea and abdominal pain since last discharged. She has been in pain since dischared4 days ago assoicated with dizziness and weakness. She denies fever. She is a frequent visitor with a diagnosis of gastropharesis. She is being medicated for pain control with percocet 7.5. Chief Complaint:: [facility] DRUGS Self Treatment fo Chief Complaint: PT. C/O ABDOMINAL PAIN, N/V, WEAKNESS, AND DIZZINESS. - Source History Provided: Patient - Mode of Arrival Mode of Arrival: Ambulatory - Timing Onset of Chief Complaint: 07/11/17 PMH - PMH Past Medical History: Yes Past Medical History: Diabetes, Hypertension Past Medical History Comment: GASTROPARESIS, PANCREATITIS Past Surgical History: Yes Surgical History: Cholecystectomy, Hysterectomy, Ortho Surgery, Other - Family History History of Family Medical Conditions: Yes Family Medical History: Diabetes Mellitus, Hypertension - Social History Does patient currently use any type of tobacco product: No Have you used tobacco products in the last 12 months: No Type of Tobacco Use: None Does any household member use tobacco: No Alcohol Use: None Do you use any recreational Drugs:: No Lives With: Family Lives Where: Home - infectious screening In the last 2 months have you had wt loss of >10#?: NO Have you had fever, night sweats or hemotysis?: No Have you traveled outside the country in the last 6 months?: No Isolation: Standard ROS - Review of Systems Eyes: No Symptoms Reported ENTM: No Symptoms Reported Respiratoy: No Symptoms Reported Cardiovascular: No Symptoms Reported Gastrointestinal/Abdominal: Abdominal Pain, Vomiting Genitourinary: No Symptoms Reported Neurological: No Symptoms Reported Musculoskeletal: No Symptoms Reported Integumentary: No Symptoms Reported Hematologic/Lymphatic: No Symptoms Reported Endocrine: No Symptoms Reported Psychiatric: No Symptoms Reported All Other Systems: Reviewed and Negative PE - Vital Signs Vitals: Temperature 98.2 F Pulse Rate 89 Respiratory Rate 17 Blood Pressure [Right Arm] 167/89 Blood Pressure [Left Arm] 233/101 Blood Pressure 109/65 O2 Sat by Pulse Oximetry 99 - General Limitations: No Limitations General Appearance: Alert, In No Apparent Distress - Head Head Exam: Normal Inspection, Atraumatic - Eyes Eye exam: Normal Appearance, PERRL, EOMI - ENT ENT Exam: Normal Exam, Normal Oropharynx, TM's Normal Bilaterally - Neck Neck Exam: Normal Inspection, Full ROM - Chest Chest Inspection: Normal Inspection - Respiratory Respiratory Exam: Normal Lung Sounds Bilat Respiratory Exam: Bilateral Clear to Auscultation - Cardiovascular Cardiovascular Exam: Regular Rate, Normal Rhythm - Abdominal Exam Abdominal Exam: Normal Inspection, Normal Bowel Sounds Abdominal Tenderness: Diffuse - Rectal Rectal Exam: Deferred - External Exam: Female: Deferred : Speculum Exam (Female): Deferred - Extremities Extremities Exam: Normal Inspection, Full ROM - Back Back Exam: Normal Inspection - Neurologic Neurological Exam: Alert, Oriented X3, CN II-XII Intact - Psychiatric Psychiatric Exam: Normal Affect - Skin Skin Exam: Warm, Dry, Intact ROR - Labs Reviewed Result Diagrams: 07/12/17 13:15 07/12/17 13:15 Laboratory: WBC 10.3 X10^3/uL (3.6-10.0) H 07/12/17 13:15 RBC 3.31 X10^6/uL (3.5-5.4) L 07/12/17 13:15 Hgb 9.2 g/dL (12.0-16.0) L 07/12/17 13:15 Hct 27.3 % (36.0-47.0) L 07/12/17 13:15 MCV 82.5 fL (80.0-100.0) 07/12/17 13:15 MCH 27.8 pg (27.0-34.0) 07/12/17 13:15 MCHC 33.6 g/dL (33.0-35.0) 07/12/17 13:15 RDW 15.4 % (11.6-16.5) 07/12/17 13:15 Plt Count 282 X10^3/uL (150.0-450.0) 07/12/17 13:15 MPV 8.5 fL (7.4-11.0) 07/12/17 13:15 Neut % 63.0 % (42.0-75.0) 07/12/17 13:15 Lymph % 28.3 % (21.0-51.0) 07/12/17 13:15 [place] % 5.4 % (0.0-13.0) 07/12/17 13:15 Eos % 2.0 % (0.9-2.9) 07/12/17 13:15 Baso % 1.3 % (0.2-1.0) H 07/12/17 13:15 Neut # 6.5 x10^3/uL (2.2-4.8) H 07/12/17 13:15 Lymph # 2.9 X10^3/uL (1.3-2.9) 07/12/17 13:15 [place] # 0.6 x10^3/uL (0.3-0.8) 07/12/17 13:15 Eos # 0.2 x10^3/uL (0.0-0.2) 07/12/17 13:15 Baso # 0.1 X10^3/uL (0.0-0.1) 07/12/17 13:15 Absolute Nucleated RBC 0.0 /100WBC 07/12/17 13:15 Sodium 136 mmol/L (136-145) 07/12/17 13:15 Corrected Sodium 138 mmol/L (136-145) 07/12/17 13:15 Potassium 3.7 mmol/L (3.5-5.1) 07/12/17 13:15 Chloride 100 mmol/L (98-107) 07/12/17 13:15 Carbon Dioxide 26.5 mmol/L (21-32) 07/12/17 13:15 BUN 12 mg/dL (7-18) 07/12/17 13:15 Creatinine 1.93 mg/dL (0.55-1.02) H 07/12/17 13:15 Est GFR (MDRD) Af Amer 39 (>60) L 07/12/17 13:15 Est GFR (MDRD) Non-Af 32 (>60) L 07/12/17 13:15 Glucose 198 mg/dL (65-99) H 07/12/17 13:15 Calcium 8.5 mg/dL (8.5-10.1) 07/12/17 13:15 Corrected Calcium 9.5 mg/dL (8.5-10.1) 07/12/17 13:15 Total Bilirubin 0.20 mg/dL (0.2-1.0) 07/12/17 13:15 AST 11 Units/L (15-37) L 07/12/17 13:15 ALT 13 Units/L (12-78) 07/12/17 13:15 Alkaline Phosphatase 97 Units/L (46-116) 07/12/17 13:15 C-Reactive Protein 5.90 mg/L (0-3.0) H 07/12/17 13:15 Total Protein 7.1 g/dL (6.4-8.2) 07/12/17 13:15 Albumin 2.8 g/dL (3.4-5.0) L 07/12/17 13:15 Globulin 4.3 g/dL (2.5-4.5) 07/12/17 13:15 Albumin/Globulin Ratio 0.7 Ratio (1.1-2.1) L 07/12/17 13:15 - Diagnosis Discharge Problem: Nausea and vomiting in adult patient, Gastroparesis - Discharge Plan Disposition: AGAINST MEDICAL ADVICE Condition: Stable - Follow ups/Referrals Follow ups/Referrals: KOREY RUDD [Primary Care Provider] - 3 days - Instructions
[2017-07-12] MEDS ORDERED: NS 1000 ML 1,000 ML IV ONE (13:00)
[2017-07-12] MEDS ORDERED: COMPAZINE INJ IVP ONE (13:00)
[2017-07-12] MEDS ORDERED: BENADRYL INJ 50 MG VIAL IV ONE (13:02)
[2017-07-12] MEDS ORDERED: COMPAZINE INJ ONE (13:21)
[2017-07-12] MEDS ORDERED: NS 1000 ML 1,000 ML ONE (13:21)
[2017-07-12] MEDS ORDERED: BENADRYL INJ 50 MG VIAL ONE (13:21)
[2017-07-12 13:26] LABS: EOSINOPHILS # (AUTO) 0.2 x10^3/uL (0.0-0.2); HEMOGLOBIN 9.2 g/dL (12.0-16.0); MONOCYTES # (AUTO) 0.6 x10^3/uL (0.3-0.8)
[2017-07-12] MEDS ORDERED: NS 100 ML IV 100 ML IV ONE (13:31)
[2017-07-12 13:33] LABS: BASOPHILS # (AUTO) 0.1 X10^3/uL (0.0-0.1); BASOPHILS % (AUTO) 1.3 % (0.2-1.0); HEMATOCRIT 27.3 % (36.0-47.0); LYMPHOCYTES # (AUTO) 2.9 X10^3/uL (1.3-2.9); LYMPHOCYTES % (AUTO) 28.3 % (21.0-51.0); MEAN CORPUSCULAR HEMOGLOBIN 27.8 pg (27.0-34.0); MEAN CORPUSCULAR HGB CONC 33.6 g/dL (33.0-35.0); MEAN CORPUSCULAR VOLUME 82.5 fL (80.0-100.0); MEAN PLATELET VOLUME 8.5 fL (7.4-11.0); MONOCYTES % (AUTO) 5.4 % (0.0-13.0); NEUTROPHILS # (AUTO) 6.5 x10^3/uL (2.2-4.8); PLATELET COUNT 282 X10^3/uL (150.0-450.0); RED BLOOD COUNT 3.31 X10^6/uL (3.5-5.4); RED CELL DISTRIBUTION WIDTH 15.4 % (11.6-16.5); WHITE BLOOD COUNT 10.3 X10^3/uL (3.6-10.0)
[2017-07-12 13:40] LABS: ALBUMIN 2.8 g/dL (3.4-5.0); C-REACTIVE PROTEIN 5.9 mg/L (0-3.0); CALCIUM 8.5 mg/dL (8.5-10.1); CARBON DIOXIDE 26.5 mmol/L (21-32); COR CA(FOR HYPOALB) 9.5 mg/dL (8.5-10.1); CREATININE 1.93 mg/dL (0.55-1.02); TOTAL PROTEIN 7.1 g/dL (6.4-8.2)
== END 2017-07-12 14:17 | disposition left against medical advice (07) ==
LOC: ER 12:08
DX: K31.84 Gastroparesis (principal); R11.2 Nausea with vomiting, unspecified
CPT/HCPCS: 36415; 80053; 85025; 86140; 96365; 96374; 96375; 99282; 99283; J0780; J1200

== ENCOUNTER 2017-11-15 13:53 | Inpatient (IN) ==
--- NOTE | 2017-11-15 14:32 | DR.GENAD ---
HPI - PCP Primary Care Physician: BLAIRE - HPI Comment HPI Comment: PATIENT WORSE TODAY. HISTORY OF GASTROPARESIS. BELIEVE THIS FLARE UP OF HER GASTROPARESIS. - Complaint/Symptoms Chief Complaint Doctors Comments: ABDOMINAL PAIN, N/V FOR FEW DAYS. HAVE NOT TAKEN MEDS SINCE YESTERDAY. NOT KEEPING FLUID OR FOOD. NO FEVER OR DYSURIA. Chief Complaint:: PT C/O ABD PAIN. PT STATES SHE HAS HAD ABD PAIN SINCE SHE WAS HERE ON HER LAST VISIT. Self Treatment fo Chief Complaint: PT STATES SHE TOOK SOME OXYCODONE, PHENERGAN , AND ZOFRAN YESTERDAY MORNING BUT WAS ONLY ABLE TO KEEP THE ZOFRAN DOWN BUT IT DIDN'T DO ANY GOOD - Nurses notes reviewed Nurses Notes Review: Yes - Source History Provided: Patient - Mode of Arrival Mode of Arrival: Wheelchair - Timing Onset of Chief Complaint: 11/11/17 Came on: Suddenly - Duration Duration: Constant Duration: Days - Severity Severity: Moderate PMH - PMH Past Medical History: Yes Past Medical History: Diabetes, Hypertension Past Surgical History: Yes Surgical History: Cholecystectomy, Hysterectomy, Ortho Surgery, Other - Family History History of Family Medical Conditions: Yes Family Medical History: Diabetes Mellitus, Hypertension - Social History Does patient currently use any type of tobacco product: No Have you used tobacco products in the last 12 months: No Type of Tobacco Use: None Does any household member use tobacco: No Alcohol Use: None Do you use any recreational Drugs:: No Lives With: Mom - infectious screening In the last 2 months have you had wt loss of >10#?: NO Have you had fever, night sweats or hemotysis?: No Have you traveled outside the country in the last 6 months?: No Isolation: Standard ROS - Review of Systems Constitutional: Weakness, Fatigue. negative: Chills, Fever Eyes: Eye Pain, Tearing, Discharge, Other (POOR VISION) ENTM: negative: Ear Pain, Nose Discharge, Nose Congestion, Throat Pain Respiratoy: Short of Breath (ON EXERSION). negative: Productive Cough, Wheezing , Hemoptysis Cardiovascular: Chest Pain Gastrointestinal/Abdominal: Abdominal Pain, Nausea, Vomiting. negative: Diarrhea Genitourinary: No Symptoms Reported. negative: Dysuria, Frequency, Hematuria, Pain, Bleeding Neurological: Headache, Weakness, Dizziness Musculoskeletal: Joint Swelling, Muscle Pain Integumentary: No Symptoms Reported, Dryness Hematologic/Lymphatic: Easy Bruising Endocrine: Increased Thirst, Other (DECREASE URINE OUTPUT.) All Other Systems: Reviewed and Negative PE - General Limitations: No Limitations General Appearance: Alert - Head Head Exam: Normal Inspection - Eyes Eye exam: PERRL, EOMI, Other (POOR VISION). negative: Scleral Icterus, Conjunctival Injection - ENT ENT Exam: Normal External Ear Exam External Ear Exam: Normal External Inspection TM/Canal Exam: Bilateral Normal Nose Exam: Normal Nose Exam Mouth Exam: Normal Inspection Throat Exam: Normal Inspection - Neck Neck Exam: Trachea Midline - Chest Chest Inspection: Symmetric Chest Wall Rise - Respiratory Respiratory Exam: Normal Lung Sounds Bilat Respiratory Exam: Bilateral Rhonchi, Lower Rhonchi - Cardiovascular Cardiovascular Exam: Regular Rate, Normal Rhythm, Normal Heart Sounds - Abdominal Exam Abdominal Exam: Normal Bowel Sounds, Soft, Tenderness Abdominal Tenderness: Diffuse, Moderate - Extremities Extremities Exam: Normal Inspection - Neurologic Neurological Exam: Alert, Oriented X3, CN II-XII Intact. negative: Motor Sensory Deficit - Psychiatric Psychiatric Exam: Anxious - Skin Skin Exam: Dry - Vital Signs Vitals: Temperature 97.3 F Pulse Rate 89 Respiratory Rate 20 Blood Pressure [Right Arm] 125/71 Blood Pressure [Left Arm] 233/101 Blood Pressure 93/46 O2 Sat by Pulse Oximetry 99 MDM - Additional Information Additional Information Obtained From: Family Findings: GASTROPARESIS, DKA, DEHYDRATION, ABDOMINAL PAIN, UTI Course - Treatment Treatment: SEE ORDERS. IV FLUIDS AND IVNAUSEA AND PAIN MED IN ED. - Reevaluation 1st: Unchanged 2nd: Improved - Consultation Consultation Comments: DISCUSS PATIENT WITH DR. RUDD. HE WILL ADMIT PATIENT. - Education/Counseling Education/Counseling: Patient, Family, Education Educated On: Diagnosis, Needs for Follow Up ROR - Labs Reviewed Laboratory Results Reviewed?: Yes Result Diagrams: 11/15/17 15:05 11/15/17 15:05 - XRAY XRAY Interpreted by: Radiologist XRAY Findings: REPORT DISCUSS WITH PATIENT AND FAMILY. - Diagnosis Discharge Problem: Dehydration, Gastroparesis Acute on chronic renal failure Qualifiers: Acute renal failure type: unspecified Chronic kidney disease stage: unspecified stage Qualified Code(s): N17.9 - Acute kidney failure, unspecified; N18.9 - Chronic kidney disease, unspecified Hypotension Qualifiers: Hypotension type: unspecified hypotension type Qualified Code(s): I95.9 - Hypotension, unspecified - Discharge Plan Disposition: ADMITTED INPATIENT Condition: Stable
[2017-11-15] MEDS ORDERED: ZOFRAN INJ 4 MG VIAL IVP ONE (14:39)
[2017-11-15] MEDS ORDERED: NS 1000 ML 1,000 ML IV ONE ×2 (14:39→16:29)
[2017-11-15] MEDS ORDERED: MORPHINE SULFATE INJ 4 MG IVP ONE (14:39)
[2017-11-15] MEDS ORDERED: NS 1000 ML 1,000 ML ONE ×3 (14:42→17:44)
[2017-11-15] MEDS ORDERED: MORPHINE SULFATE INJ 4 MG ONE (14:42)
[2017-11-15] MEDS ORDERED: ZOFRAN INJ 4 MG VIAL ONE (14:42)
--- NOTE | 2017-11-15 15:28 | RAD ---
Examination: Abdomen with PA chest History pain Comparison reference 11/11/2017 Findings: Normal heart size with clear lungs and pleural spaces. Surgical catheter extends to the rig ht atrium. Additional supine and upright views demonstrate mild distention of the colon with a few ai r-fluid levels. There is no evidence for ascites, pneumoperitoneum or urinary calcification. There ar e surgical clips in the right upper quadrant. Impression: Described intestinal gas pattern suggesting diarrhea/enteritis. No definite obstruction o r perforation. Reported By:
[2017-11-15 16:01] LABS: BASOPHILS # (AUTO) 0.1 X10^3/uL (0.0-0.1); BASOPHILS % (AUTO) 0.6 % (0.2-1.0); EOSINOPHILS # (AUTO) 0.5 x10^3/uL (0.0-0.2); EOSINOPHILS % (AUTO) 3.6 % (0.9-2.9); HEMOGLOBIN 9.5 g/dL (12.0-16.0); LYMPHOCYTES # (AUTO) 4.1 X10^3/uL (1.3-2.9); LYMPHOCYTES % (AUTO) 33.1 % (21.0-51.0); MEAN CORPUSCULAR HEMOGLOBIN 27.9 pg (27.0-34.0); MEAN CORPUSCULAR HGB CONC 32.7 g/dL (33.0-35.0); MEAN CORPUSCULAR VOLUME 85.3 fL (80.0-100.0); MEAN PLATELET VOLUME 8.7 fL (7.4-11.0); MONOCYTES # (AUTO) 0.7 x10^3/uL (0.3-0.8); MONOCYTES % (AUTO) 5.8 % (0.0-13.0); NEUTROPHILS % (AUTO) 56.9 % (42.0-75.0); PLATELET COUNT 332 X10^3/uL (150.0-450.0); RED CELL DISTRIBUTION WIDTH 15.8 % (11.6-16.5); WHITE BLOOD COUNT 12.4 X10^3/uL (3.6-10.0)
[2017-11-15 16:05] LABS: CALCIUM 8.7 mg/dL (8.5-10.1); CARBON DIOXIDE 27.6 mmol/L (21-32); COR CA(FOR HYPOALB) 9.5 mg/dL (8.5-10.1); CREATININE 4.51 mg/dL (0.55-1.02); TOTAL PROTEIN 6.8 g/dL (6.4-8.2)
[2017-11-15] MEDS ORDERED: DILAUDID INJ ONE (17:30)
[2017-11-15] MEDS ORDERED: PHENERGAN INJ 25 MG ONE (17:30)
[2017-11-15] MEDS ORDERED: DILAUDID INJ IVP ONE (17:36)
[2017-11-15] MEDS ORDERED: PHENERGAN INJ 25 MG IV ONE (17:36)
[2017-11-15] MEDS ORDERED: NS 1000 ML 1,000 ML IV SCH (18:00)
[2017-11-15] MEDS ORDERED: HumuLIN R SC PRN (19:38)
[2017-11-15] MEDS: NS 1000 ML 1,000 ML IV SCH (20:52)
[2017-11-15] MEDS: PEPCID 20 MG IV PREMIX* 20 MG/50 ML BAG IV SCH ×2 (20:52→20:55)
[2017-11-15] MEDS ORDERED: LANTUS SC SCH (21:00)
[2017-11-15 21:27] VITALS: BMI 32.1
[2017-11-15] MEDS: XALATAN OP SCH (21:52)
[2017-11-15] MEDS: DILAUDID INJ IVP PRN (21:52)
[2017-11-15] MEDS: PHENERGAN INJ 25 MG IVP PRN (21:53)
[2017-11-15] MEDS: LANTUS SC SCH (22:01)
[2017-11-15] MEDS: AMBIEN PO SCH (22:08)
[2017-11-15] MEDS: ALPHAGAN 0.2% OPHTH SOLN OP SCH (22:15)
[2017-11-16] MEDS: PHENERGAN INJ 25 MG IVP PRN ×6 (01:58→22:00)
[2017-11-16] MEDS: DILAUDID INJ IVP PRN ×6 (01:58→22:00)
[2017-11-16 02:19] LABS: APPEARANCE,URINE CLEAR (CLEAR); BILIRUBIN,URINE NEGATIVE (NEGATIVE); BLOOD/HEMOGLOBIN,URINE 1+ (NEGATIVE); COLOR,URINE PALE YELLOW (YELLOW); GLUCOSE, URINE NEGATIVE (NEGATIVE); KETONES,URINE NEGATIVE (NEGATIVE); LEUKOCYTE ESTERASE ,URINE NEGATIVE (NEGATIVE); NITRITES,URINE NEGATIVE (NEGATIVE); PROTEIN,URINE 3+ (NEGATIVE); UROBILINOGEN,URINE NORMAL (NORMAL)
[2017-11-16 02:32] LABS: RBC,URINE 0-2 /HPF (NONE SEEN)
[2017-11-16 02:33] LABS: AMORPHOUS SEDIMENT,UR TRACE /HPF (NEGATIVE); BACTERIA,URINE TRACE /HPF (NEGATIVE); SQUAMOUS EPITHELIAL CELL,UR FEW /HPF (NEGATIVE)
[2017-11-16] MEDS: NS 1000 ML 1,000 ML IV SCH ×4 (04:15→22:06)
[2017-11-16 05:43] LABS: BASOPHILS # (AUTO) 0.1 X10^3/uL (0.0-0.1); BASOPHILS % (AUTO) 0.5 % (0.2-1.0); EOSINOPHILS # (AUTO) 0.6 x10^3/uL (0.0-0.2); EOSINOPHILS % (AUTO) 5.1 % (0.9-2.9); HEMATOCRIT 25.3 % (36.0-47.0); HEMOGLOBIN 8.4 g/dL (12.0-16.0); LYMPHOCYTES # (AUTO) 3.8 X10^3/uL (1.3-2.9); LYMPHOCYTES % (AUTO) 34.7 % (21.0-51.0); MEAN CORPUSCULAR HEMOGLOBIN 28.2 pg (27.0-34.0); MEAN CORPUSCULAR HGB CONC 33.3 g/dL (33.0-35.0); MEAN CORPUSCULAR VOLUME 84.6 fL (80.0-100.0); MEAN PLATELET VOLUME 8.5 fL (7.4-11.0); MONOCYTES # (AUTO) 0.8 x10^3/uL (0.3-0.8); NEUTROPHILS # (AUTO) 5.8 x10^3/uL (2.2-4.8); NEUTROPHILS % (AUTO) 52.7 % (42.0-75.0); PLATELET COUNT 274 X10^3/uL (150.0-450.0); RED BLOOD COUNT 2.99 X10^6/uL (3.5-5.4); RED CELL DISTRIBUTION WIDTH 15.6 % (11.6-16.5)
[2017-11-16 05:48] LABS: ALBUMIN 2.6 g/dL (3.4-5.0); CALCIUM 8.2 mg/dL (8.5-10.1); CARBON DIOXIDE 24.8 mmol/L (21-32); COR CA(FOR HYPOALB) 9.3 mg/dL (8.5-10.1); CREATININE 2.62 mg/dL (0.55-1.02); TOTAL PROTEIN 6.2 g/dL (6.4-8.2)
[2017-11-16] MEDS: ALPHAGAN 0.2% OPHTH SOLN OP SCH ×3 (06:01→21:44)
[2017-11-16] MEDS: PEPCID 20 MG IV PREMIX* 20 MG/50 ML BAG IV SCH ×2 (08:21→20:28)
[2017-11-16] MEDS: COSOPT OPTH OP SCH (09:22)
[2017-11-16] MEDS: LANTUS SC SCH ×2 (09:52→21:45)
--- NOTE | 2017-11-16 13:10 | DR.H&P ---
H&P - History & Physical for Day of: H&P Date: 11/15/17 - Chief Complaint Chief Complaint: n/v, abdominal pain, elevated blood pressure - History of Present Illness History of Present Illness: 32BF ER ADMISSION AFTER PRESENTING WITH CO SEVERE N/ V, FEW LOOSE STOOLS. CO ELEVATED BP DUE CANNOT KEEP PO BP MEDS DOWN. PT HAS PMH OF DM, GERD, CHRONIC ABDOMINAL PAIN, HX AMPUTATION, DIABETIC RETINOPATHY. PT ADMISSION LABS REVEALED ACUTE RENAL FAILURE, DEHYDRATION. PT ADMIT FOR EVALUATION AND TREATMENT OF GE, ABNORMAL BLOOD SUGAR, GLUCOSE LEVELS - Past Medical History Past Medical History: Diabetes, Hypertension Additional Medical History: MORBID OBESITY - Past Surgical History Surgical History: Cholecystectomy, Hysterectomy, Ortho Surgery, Other - Family History Family Medical History: Diabetes Mellitus, Hypertension - Social History Does patient currently use any type of tobacco product: No Have you used tobacco products in the last 12 months: No Type of Tobacco Use: None Does any household member use tobacco: No Alcohol Use: None Drug Use: None - Medications Home Medications: Penicillins Allergy (Verified 11/11/17 16:25) ceftazidime [From Fortaz] Adverse Reaction (Verified 11/11/17 16:25) CONTINUE taking the following medications brimonidine 1 drp OPHTHALMIC (EYE) TID 11/15/17 [History] dorzolamide-timolol [Cosopt] 1 drp OPHTHALMIC (EYE) DAILY 11/15/17 [History] latanoprost 1 drp OPHTHALMIC (EYE) HS 11/15/17 [History] lisinopril 1 tab PO DAILY 11/15/17 [History] triamterene-hydrochlorothiazid 1 cap PO DAILY 11/15/17 [History] zolpidem 1 tab PO HS 11/15/17 [History] - Review of Systems Constitutional: Weakness Eyes: Vision Change ENT: No Symptoms Reported Respiratory: SOB with Excertion Cardiovascular: Palpitations, Light Headedness Gastrointestinal: Nausea, Vomiting, Abdominal Pain, Diarrhea Genitourinary: No Symptoms Reported Musculoskeletal: Back Pain, Leg Pain Skin: No Symptoms Reported Neurological: No Symptoms Reported - Physical Exam Vital Signs: Temperature 97.0 F Pulse Rate [Left] 90 Pulse Rate 89 Respiratory Rate 18 Blood Pressure [Right Arm] 107/66 Blood Pressure [Left Arm] 180/78 Blood Pressure 93/46 O2 Sat by Pulse Oximetry 100 Oriented: Normal Eyes: Normal Ear: Normal Nose: Normal Throat: Normal Respiratory: RLL Diminished, LLL Diminished Cardiovascular: Tachycardia (RATE 106) : Normal Auscultation: Bowel Sounds: Normal Palpation: Normal Tenderness: Diffuse, Moderate Skin: Normal Musculoskeletal: Leg, Back:Thoracic, Back:Lumbar, Deformity Psychiatric: Anxiety Affect: Anxious, Depressed Speech Pattern: Clear, Appropriate - Assessment/Plan (1) Abdominal pain Qualifiers: Abdominal location: generalized Qualified Code(s): R10.84 - Generalized abdominal pain Status: Acute Plan: ADMIT, GENTLE HYDRATION, MONITOR I & OS. BS MONITORING, BP MONITORING. VERIFY HOME MEDS, NPO. REPEAT AM LABS, ACETONE LEVEL (2) Uncontrolled diabetes mellitus Status: Acute (3) Nausea & vomiting Status: Acute (4) Uncontrolled hypertension Status: Acute (5) Chronic kidney disease (CKD) Status: Acute - Allergies Allergies/Adverse Reactions: Allergies Allergy/AdvReac Type Severity Reaction Status Date / Time Penicillins Allergy Verified 11/11/17 16:25 ceftazidime [From Fortaz] AdvReac Verified 11/11/17 16:25
--- NOTE | 2017-11-16 13:16 | PCM.PROG ---
Progress Note - Progress Note for Day of Date of Exam: 11/16/17 - Subjective Subjective: 32BF ER ADMISSION WITH ABDOMINAL PAIN, ACUTE ON CHRONIC RENAL FAILURE AND N/V LOOSE STOOL. PT HAD IMPROVING RENAL FUNCTION THIS AM. CONTINUES TO CO DIFFUSE ABDOMINAL TENDERNESS. PT DENIES VOMITING THIS AM. WILL CONTINUE NPO, IV HYDRATION. REPEAT AM LABS, STOOL STUDIES, BS AND BP CONTROL - Past Medical Family Social History Past Med/Fam/Surg Hx: No changes since H&P Allergies: Allergies Penicillins Allergy (Verified 11/11/17 16:25) ceftazidime [From Fortaz] Adverse Reaction (Verified 11/11/17 16:25) - Review of Systems ROS: No change since H&P - Vital Signs and I&O's Vital Signs: Temperature 97.0 F Pulse Rate [Left] 90 Pulse Rate 89 Respiratory Rate 18 Blood Pressure [Right Arm] 107/66 Blood Pressure [Left Arm] 180/78 Blood Pressure 93/46 O2 Sat by Pulse Oximetry 100 Intake and Output: Intake & Output 11/14/17 11/15/17 11/16/17 11/17/17 11:59 11:59 11:59 11:59 Intake Total 1478 / 1478 Output Total 0 / 0 Balance 1478 / 1478 - Physical Exam Oriented: Normal Eyes: Normal Ear: Normal Nose: Normal Throat: Normal Respiratory: Diminished Cardiovascular: Tachycardia (RATE 106) : Normal Auscultation: Bowel Sounds: Normal Tenderness: Diffuse, Moderate Skin: Normal Musculoskeletal: Leg, Back:Thoracic, Back:Lumbar, Deformity Psychiatric: Anxiety Affect: Anxious, Depressed Speech Pattern: Clear, Appropriate - Laboratory and Diagnostics Result Diagrams: 11/16/17 05:15 11/16/17 05:15 Labs: Laboratory WBC 11.0 X10^3/uL (3.6-10.0) H 11/16/17 05:15 RBC 2.99 X10^6/uL (3.5-5.4) L 11/16/17 05:15 Hgb 8.4 g/dL (12.0-16.0) L 11/16/17 05:15 Hct 25.3 % (36.0-47.0) L 11/16/17 05:15 MCV 84.6 fL (80.0-100.0) 11/16/17 05:15 MCH 28.2 pg (27.0-34.0) 11/16/17 05:15 MCHC 33.3 g/dL (33.0-35.0) 11/16/17 05:15 RDW 15.6 % (11.6-16.5) 11/16/17 05:15 Plt Count 274 X10^3/uL (150.0-450.0) 11/16/17 05:15 MPV 8.5 fL (7.4-11.0) 11/16/17 05:15 Neut % (Auto) 52.7 % (42.0-75.0) 11/16/17 05:15 Lymph % (Auto) 34.7 % (21.0-51.0) 11/16/17 05:15 [place] % (Auto) 7.0 % (0.0-13.0) 11/16/17 05:15 Eos % (Auto) 5.1 % (0.9-2.9) H 11/16/17 05:15 Baso % (Auto) 0.5 % (0.2-1.0) 11/16/17 05:15 Neut # (Auto) 5.8 x10^3/uL (2.2-4.8) H 11/16/17 05:15 Lymph # (Auto) 3.8 X10^3/uL (1.3-2.9) H 11/16/17 05:15 [place] # (Auto) 0.8 x10^3/uL (0.3-0.8) 11/16/17 05:15 Eos # (Auto) 0.6 x10^3/uL (0.0-0.2) H 11/16/17 05:15 Baso # (Auto) 0.1 X10^3/uL (0.0-0.1) 11/16/17 05:15 Absolute Nucleated RBC 0.0 /100WBC 11/16/17 05:15 Sodium 141 mmol/L (136-145) 11/16/17 05:15 Corrected Sodium 142 mmol/L (136-145) 11/16/17 05:15 Potassium 4.5 mmol/L (3.5-5.1) 11/16/17 05:15 Chloride 110 mmol/L (98-107) H 11/16/17 05:15 Carbon Dioxide 24.8 mmol/L (21-32) 11/16/17 05:15 BUN 28 mg/dL (7-18) H 11/16/17 05:15 Creatinine 2.62 mg/dL (0.55-1.02) H 11/16/17 05:15 Est GFR (MDRD) Af Amer 27 (>60) L 11/16/17 05:15 Est GFR (MDRD) Non-Af 22 (>60) L 11/16/17 05:15 Glucose 129 mg/dL (65-99) H 11/16/17 05:15 POC Glucose (mg/dL) 162 mg/dL (65-99) H 11/15/17 20:41 Lactic Acid 0.7 mmol/L (0.4-2.0) 11/15/17 18:27 Calcium 8.2 mg/dL (8.5-10.1) L 11/16/17 05:15 Corrected Calcium 9.3 mg/dL (8.5-10.1) 11/16/17 05:15 Magnesium 2.0 mg/dL (1.7-2.9) 11/16/17 05:15 Total Bilirubin 0.20 mg/dL (0.2-1.0) 11/16/17 05:15 AST 11 Units/L (15-37) L 11/16/17 05:15 ALT 21 Units/L (12-78) 11/16/17 05:15 Alkaline Phosphatase 89 Units/L (46-116) 11/16/17 05:15 Total Protein 6.2 g/dL (6.4-8.2) L 11/16/17 05:15 Albumin 2.6 g/dL (3.4-5.0) L 11/16/17 05:15 Globulin 3.6 g/dL (2.5-4.5) 11/16/17 05:15 Albumin/Globulin Ratio 0.7 Ratio (1.1-2.1) L 11/16/17 05:15 Amylase 45 Units/L (25-115) 11/15/17 15:05 Lipase 163 Units/L (73-393) 11/15/17 15:05 Specimen Type Clean catch urine 11/16/17 01:58 Urine Color Pale yellow (YELLOW) 11/16/17 01:58 Urine Appearance Clear (CLEAR) 11/16/17 01:58 Urine pH 5.0 (5.0 - 8.0) 11/16/17 01:58 Ur Specific [place] 1.020 (1.000-1.030) 11/16/17 01:58 Urine Protein 3+ (NEGATIVE) 11/16/17 01:58 Urine Glucose (UA) Negative (NEGATIVE) 11/16/17 01:58 Urine Ketones Negative (NEGATIVE) 11/16/17 01:58 Urine Occult Blood 1+ (NEGATIVE) 11/16/17 01:58 Urine Nitrite Negative (NEGATIVE) 11/16/17 01:58 Urine Bilirubin Negative (NEGATIVE) 11/16/17 01:58 Urine Urobilinogen Normal (NORMAL) 11/16/17 01:58 Ur Leukocyte Esterase Negative (NEGATIVE) 11/16/17 01:58 Urine RBC 0-2 /HPF (NONE SEEN) 11/16/17 01:58 Urine WBC 0-2 /HPF (NONE SEEN) 11/16/17 01:58 Ur Squamous Epith Cells Few /HPF (NEGATIVE) 11/16/17 01:58 Amorphous Sediment Trace /HPF (NEGATIVE) 11/16/17 01:58 Urine Bacteria Trace /HPF (NEGATIVE) 11/16/17 01:58 Ur Culture Indicated? No/not indicated 11/16/17 01:58 Acetone, Semi-Quant Negative (NEGATIVE) 11/15/17 15:05 - Plan (1) Abdominal pain Status: Acute Qualifiers: Abdominal location: generalized Qualified Code(s): R10.84 - Generalized abdominal pain Plan: GENTLE HYDRATION, MONITOR I & OS. BS MONITORING, BP MONITORING. VERIFY HOME MEDS, NPO. REPEAT AM LABS, ACETONE LEVEL. STOOL STUDIES, AMYLASE AND LIPASE NORMAL ON ADMISSION (2) Uncontrolled diabetes mellitus Status: Acute (3) Nausea & vomiting Status: Acute (4) Uncontrolled hypertension Status: Acute (5) Chronic kidney disease (CKD) Status: Acute Plan: GENTLE HYDRATION, I & OS
[2017-11-16] MEDS: NORVASC TAB 10 MG PO SCH (14:02)
[2017-11-16] MEDS: XALATAN OP SCH (20:28)
[2017-11-16] MEDS: AMBIEN PO SCH (21:50)
[2017-11-17] MEDS: DILAUDID INJ IVP PRN ×4 (02:15→16:15)
[2017-11-17] MEDS: PHENERGAN INJ 25 MG IVP PRN ×4 (02:15→16:15)
[2017-11-17 05:38] LABS: BASOPHILS # (AUTO) 0.1 X10^3/uL (0.0-0.1); BASOPHILS % (AUTO) 0.8 % (0.2-1.0); EOSINOPHILS # (AUTO) 0.5 x10^3/uL (0.0-0.2); EOSINOPHILS % (AUTO) 5.3 % (0.9-2.9); HEMATOCRIT 26.4 % (36.0-47.0); LYMPHOCYTES # (AUTO) 2.6 X10^3/uL (1.3-2.9); LYMPHOCYTES % (AUTO) 25.5 % (21.0-51.0); MEAN CORPUSCULAR HEMOGLOBIN 28.6 pg (27.0-34.0); MEAN CORPUSCULAR HGB CONC 34.1 g/dL (33.0-35.0); MEAN CORPUSCULAR VOLUME 83.8 fL (80.0-100.0); MEAN PLATELET VOLUME 8.6 fL (7.4-11.0); MONOCYTES # (AUTO) 0.5 x10^3/uL (0.3-0.8); MONOCYTES % (AUTO) 5.2 % (0.0-13.0); NEUTROPHILS # (AUTO) 6.4 x10^3/uL (2.2-4.8); NEUTROPHILS % (AUTO) 63.2 % (42.0-75.0); PLATELET COUNT 307 X10^3/uL (150.0-450.0); RED BLOOD COUNT 3.15 X10^6/uL (3.5-5.4); RED CELL DISTRIBUTION WIDTH 15.2 % (11.6-16.5); WHITE BLOOD COUNT 10.1 X10^3/uL (3.6-10.0)
[2017-11-17 05:47] LABS: ALBUMIN 2.9 g/dL (3.4-5.0); CALCIUM 8.8 mg/dL (8.5-10.1); COR CA(FOR HYPOALB) 9.7 mg/dL (8.5-10.1); CREATININE 1.39 mg/dL (0.55-1.02); TOTAL PROTEIN 6.8 g/dL (6.4-8.2)
[2017-11-17] MEDS: ALPHAGAN 0.2% OPHTH SOLN OP SCH ×3 (06:24→22:03)
[2017-11-17] MEDS: COSOPT OPTH OP SCH (08:11)
[2017-11-17] MEDS: NS 1000 ML 1,000 ML IV SCH ×2 (08:12→11:12)
[2017-11-17] MEDS: NORVASC TAB 10 MG PO SCH (08:12)
[2017-11-17] MEDS: PEPCID 20 MG IV PREMIX* 20 MG/50 ML BAG IV SCH ×2 (08:12→20:52)
[2017-11-17] MEDS: LANTUS SC SCH ×2 (09:38→22:03)
--- NOTE | 2017-11-17 13:24 | PCM.PROG ---
Progress Note - Progress Note for Day of Date of Exam: 11/17/17 - Subjective Subjective: 32BF ER ADMISSION WITH ABDOMINAL PAIN, ACUTE ON CHRONIC RENAL FAILURE AND N/V LOOSE STOOL. PT HAD IMPROVING RENAL FUNCTION THIS AM. CONTINUES TO CO DIFFUSE ABDOMINAL TENDERNESS ON EXAM BUT VOICES "FEELING A LITTLE BETTER" PT DENIES VOMITING THIS AM. WILL CONTINUE WITH CLEAR LIQUIDS AND ADVANCE TOLERATED. , IV HYDRATION. REPEAT AM LABS, STOOL STUDIES, BS AND BP CONTROL - Past Medical Family Social History Past Med/Fam/Surg Hx: No changes since H&P Allergies: Allergies Penicillins Allergy (Verified 11/11/17 16:25) ceftazidime [From Fortaz] Adverse Reaction (Verified 11/11/17 16:25) - Review of Systems ROS: No change since H&P - Vital Signs and I&O's Vital Signs: Temperature 97.8 F Pulse Rate [Left] 98 Pulse Rate 89 Respiratory Rate 12 Blood Pressure [Right Arm] 174/84 Blood Pressure [Left Arm] 156/84 Blood Pressure 93/46 O2 Sat by Pulse Oximetry 100 Intake and Output: Intake & Output 11/15/17 11/16/17 11/17/17 11/18/17 11:59 11:59 11:59 11:59 Intake Total 1478 / 1478 4644 / 4644 Output Total 0 / 0 4550 / 4550 Balance 1478 / 1478 94 / 94 - Physical Exam Oriented: Normal Eyes: Normal Ear: Normal Nose: Normal Throat: Normal Respiratory: Diminished Cardiovascular: Tachycardia (RATE 106) : Normal Auscultation: Bowel Sounds: Normal Tenderness: Diffuse, Moderate Skin: Normal Musculoskeletal: Leg, Back:Thoracic, Back:Lumbar, Deformity Psychiatric: Anxiety Affect: Anxious, Depressed Speech Pattern: Clear, Appropriate - Laboratory and Diagnostics Result Diagrams: 11/17/17 05:10 11/17/17 05:10 Labs: Laboratory WBC 10.1 X10^3/uL (3.6-10.0) H 11/17/17 05:10 RBC 3.15 X10^6/uL (3.5-5.4) L 11/17/17 05:10 Hgb 9.0 g/dL (12.0-16.0) L 11/17/17 05:10 Hct 26.4 % (36.0-47.0) L 11/17/17 05:10 MCV 83.8 fL (80.0-100.0) 11/17/17 05:10 MCH 28.6 pg (27.0-34.0) 11/17/17 05:10 MCHC 34.1 g/dL (33.0-35.0) 11/17/17 05:10 RDW 15.2 % (11.6-16.5) 11/17/17 05:10 Plt Count 307 X10^3/uL (150.0-450.0) 11/17/17 05:10 MPV 8.6 fL (7.4-11.0) 11/17/17 05:10 Neut % (Auto) 63.2 % (42.0-75.0) 11/17/17 05:10 Lymph % (Auto) 25.5 % (21.0-51.0) 11/17/17 05:10 [place] % (Auto) 5.2 % (0.0-13.0) 11/17/17 05:10 Eos % (Auto) 5.3 % (0.9-2.9) H 11/17/17 05:10 Baso % (Auto) 0.8 % (0.2-1.0) 11/17/17 05:10 Neut # (Auto) 6.4 x10^3/uL (2.2-4.8) H 11/17/17 05:10 Lymph # (Auto) 2.6 X10^3/uL (1.3-2.9) 11/17/17 05:10 [place] # (Auto) 0.5 x10^3/uL (0.3-0.8) 11/17/17 05:10 Eos # (Auto) 0.5 x10^3/uL (0.0-0.2) H 11/17/17 05:10 Baso # (Auto) 0.1 X10^3/uL (0.0-0.1) 11/17/17 05:10 Absolute Nucleated RBC 0.0 /100WBC 11/17/17 05:10 Sodium 140 mmol/L (136-145) 11/17/17 05:10 Corrected Sodium 141 mmol/L (136-145) 11/17/17 05:10 Potassium 4.2 mmol/L (3.5-5.1) 11/17/17 05:10 Chloride 106 mmol/L (98-107) 11/17/17 05:10 Carbon Dioxide 26.0 mmol/L (21-32) 11/17/17 05:10 BUN 14 mg/dL (7-18) 11/17/17 05:10 Creatinine 1.39 mg/dL (0.55-1.02) H 11/17/17 05:10 Est GFR (MDRD) Af Amer 56 (>60) L 11/17/17 05:10 Est GFR (MDRD) Non-Af 46 (>60) L 11/17/17 05:10 Glucose 136 mg/dL (65-99) H 11/17/17 05:10 POC Glucose (mg/dL) 162 mg/dL (65-99) H 11/15/17 20:41 Lactic Acid 0.7 mmol/L (0.4-2.0) 11/15/17 18:27 Calcium 8.8 mg/dL (8.5-10.1) 11/17/17 05:10 Corrected Calcium 9.7 mg/dL (8.5-10.1) 11/17/17 05:10 Magnesium 2.0 mg/dL (1.7-2.9) 11/16/17 05:15 Iron 24 ug/dL (50-175) L 11/16/17 05:15 Transferrin 193 mg/dL (202-364) L 11/16/17 05:15 Ferritin 24 ng/mL (8-252) 11/16/17 05:15 Total Bilirubin 0.20 mg/dL (0.2-1.0) 11/17/17 05:10 AST 12 Units/L (15-37) L 11/17/17 05:10 ALT 24 Units/L (12-78) 11/17/17 05:10 Alkaline Phosphatase 106 Units/L (46-116) 11/17/17 05:10 Total Protein 6.8 g/dL (6.4-8.2) 11/17/17 05:10 Albumin 2.9 g/dL (3.4-5.0) L 11/17/17 05:10 Globulin 3.9 g/dL (2.5-4.5) 11/17/17 05:10 Albumin/Globulin Ratio 0.7 Ratio (1.1-2.1) L 11/17/17 05:10 Amylase 45 Units/L (25-115) 11/15/17 15:05 Lipase 163 Units/L (73-393) 11/15/17 15:05 Vitamin B12 711 pg/mL (193-986) 11/16/17 05:15 Folate 6.9 ng/mL (>8.6) L 11/16/17 05:15 Specimen Type Clean catch urine 11/16/17 01:58 Urine Color Pale yellow (YELLOW) 11/16/17 01:58 Urine Appearance Clear (CLEAR) 11/16/17 01:58 Urine pH 5.0 (5.0 - 8.0) 11/16/17 01:58 Ur Specific [place] 1.020 (1.000-1.030) 11/16/17 01:58 Urine Protein 3+ (NEGATIVE) 11/16/17 01:58 Urine Glucose (UA) Negative (NEGATIVE) 11/16/17 01:58 Urine Ketones Negative (NEGATIVE) 11/16/17 01:58 Urine Occult Blood 1+ (NEGATIVE) 11/16/17 01:58 Urine Nitrite Negative (NEGATIVE) 11/16/17 01:58 Urine Bilirubin Negative (NEGATIVE) 11/16/17 01:58 Urine Urobilinogen Normal (NORMAL) 11/16/17 01:58 Ur Leukocyte Esterase Negative (NEGATIVE) 11/16/17 01:58 Urine RBC 0-2 /HPF (NONE SEEN) 11/16/17 01:58 Urine WBC 0-2 /HPF (NONE SEEN) 11/16/17 01:58 Ur Squamous Epith Cells Few /HPF (NEGATIVE) 11/16/17 01:58 Amorphous Sediment Trace /HPF (NEGATIVE) 11/16/17 01:58 Urine Bacteria Trace /HPF (NEGATIVE) 11/16/17 01:58 Ur Culture Indicated? No/not indicated 11/16/17 01:58 Acetone, Semi-Quant Negative (NEGATIVE) 11/15/17 15:05 - Plan (1) Abdominal pain Status: Acute Qualifiers: Abdominal location: generalized Qualified Code(s): R10.84 - Generalized abdominal pain Plan: GENTLE HYDRATION, MONITOR I & OS. BS MONITORING, BP MONITORING. CLEAR LIQUIDS, ADVANCE TOLERATED. REPEAT AM LABS, ACETONE LEVEL. STOOL STUDIES, AMYLASE AND LIPASE NORMAL ON ADMISSION (2) Uncontrolled diabetes mellitus Status: Acute (3) Nausea & vomiting Status: Acute (4) Uncontrolled hypertension Status: Acute (5) Chronic kidney disease (CKD) Status: Acute Plan: GENTLE HYDRATION, I & OS
[2017-11-17] MEDS: ZESTRIL TAB 10 MG PO SCH (14:08)
[2017-11-17] MEDS: REGLAN TAB 5 MG PO SCH ×2 (16:14→20:52)
[2017-11-17] MEDS ORDERED: DILAUDID INJ IVP PRN (17:20)
[2017-11-17] MEDS: PERCOCET TAB 5/325 MG PO PRN (20:52)
[2017-11-17] MEDS: XALATAN OP SCH (20:53)
[2017-11-17] MEDS: AMBIEN PO SCH (21:00)
[2017-11-17] MEDS: PHENERGAN INJ 25 MG IV SCH (22:03)
[2017-11-18] MEDS: NS 1000 ML 1,000 ML IV SCH (00:22)
[2017-11-18] MEDS: PERCOCET TAB 5/325 MG PO PRN (00:34)
[2017-11-18] MEDS: ALPHAGAN 0.2% OPHTH SOLN OP SCH (05:23)
[2017-11-18] MEDS: PHENERGAN INJ 25 MG IV SCH (05:23)
[2017-11-18 05:27] LABS: BASOPHILS # (AUTO) 0.1 X10^3/uL (0.0-0.1); BASOPHILS % (AUTO) 0.9 % (0.2-1.0); EOSINOPHILS # (AUTO) 0.5 x10^3/uL (0.0-0.2); EOSINOPHILS % (AUTO) 5.3 % (0.9-2.9); HEMATOCRIT 29.3 % (36.0-47.0); HEMOGLOBIN 9.9 g/dL (12.0-16.0); LYMPHOCYTES # (AUTO) 3.2 X10^3/uL (1.3-2.9); LYMPHOCYTES % (AUTO) 35.1 % (21.0-51.0); MEAN CORPUSCULAR HEMOGLOBIN 28.2 pg (27.0-34.0); MEAN CORPUSCULAR HGB CONC 33.6 g/dL (33.0-35.0); MEAN CORPUSCULAR VOLUME 83.9 fL (80.0-100.0); MEAN PLATELET VOLUME 8.5 fL (7.4-11.0); MONOCYTES # (AUTO) 0.6 x10^3/uL (0.3-0.8); MONOCYTES % (AUTO) 6.8 % (0.0-13.0); NEUTROPHILS # (AUTO) 4.7 x10^3/uL (2.2-4.8); NEUTROPHILS % (AUTO) 51.9 % (42.0-75.0); PLATELET COUNT 350 X10^3/uL (150.0-450.0); RED BLOOD COUNT 3.49 X10^6/uL (3.5-5.4); RED CELL DISTRIBUTION WIDTH 15.2 % (11.6-16.5); WHITE BLOOD COUNT 9.1 X10^3/uL (3.6-10.0)
[2017-11-18] MEDS ORDERED: PHENERGAN INJ 25 MG IV PRN (05:30)
[2017-11-18 05:37] LABS: ALBUMIN 3.3 g/dL (3.4-5.0); CALCIUM 9.3 mg/dL (8.5-10.1); CARBON DIOXIDE 25.2 mmol/L (21-32); COR CA(FOR HYPOALB) 9.9 mg/dL (8.5-10.1); CREATININE 1.4 mg/dL (0.55-1.02); TOTAL PROTEIN 7.6 g/dL (6.4-8.2)
[2017-11-18] MEDS: REGLAN TAB 5 MG PO SCH (05:40)
[2017-11-18] MEDS: ZESTRIL TAB 10 MG PO SCH (09:00)
[2017-11-18] MEDS: NORVASC TAB 10 MG PO SCH (09:00)
[2017-11-18] MEDS: COSOPT OPTH OP SCH (09:09)
[2017-11-18] MEDS: LANTUS SC SCH (09:09)
[2017-11-18] MEDS: PEPCID 20 MG IV PREMIX* 20 MG/50 ML BAG IV SCH ×2 (09:09→09:10)
[2017-11-18 09:26] VITALS: BP 134/77
== END 2017-11-18 13:15 | disposition home or self-care (01) | DRG 392 ==
LOC: ER 13:57 → ICU 19:51
PROVIDERS: ADMIT Internal Medicine; ATTEND Internal Medicine
DX: I12.9 Hypertensive chronic kidney disease with stage 1 through stage 4 chronic kidney disease, or unspecified chronic kidney disease; N17.8 Other acute kidney failure; R19.7 Diarrhea, unspecified; N18.9 Chronic kidney disease, unspecified; E86.0 Dehydration; Z87.19 Personal history of other diseases of the digestive system; R10.84 Generalized abdominal pain; R06.02 Shortness of breath; E11.65 Type 2 diabetes mellitus with hyperglycemia; R11.2 Nausea with vomiting, unspecified; I95.89 Other hypotension
CPT/HCPCS: 36415; 36591; 74022; 80053; 81001; 82009; 82150; 82607; 82728; 82746; 83540; 83605; 83690; 83735; 84466; 85025; 96365; 96374; 96375; 99221; 99283; 99284; A4222; S0028; J1170; J1642; J2270; J2405; J2550; J7030

== ENCOUNTER 2018-04-15 11:49 | Observation (INO) ==
[2018-04-15] MEDS ORDERED: ZOFRAN INJ 4 MG VIAL IVP PRN (12:21)
[2018-04-15 14:23] LABS: BASOPHILS # (AUTO) 0.2 X10^3/uL (0.0-0.1); BASOPHILS % (AUTO) 1.4 % (0.2-1.0); EOSINOPHILS # (AUTO) 0.2 x10^3/uL (0.0-0.2); EOSINOPHILS % (AUTO) 1.2 % (0.9-2.9); HEMATOCRIT 31.9 % (36.0-47.0); HEMOGLOBIN 10.6 g/dL (12.0-16.0); LYMPHOCYTES # (AUTO) 2.5 X10^3/uL (1.3-2.9); LYMPHOCYTES % (AUTO) 16.3 % (21.0-51.0); MEAN CORPUSCULAR HEMOGLOBIN 29.1 pg (27.0-34.0); MEAN CORPUSCULAR HGB CONC 33.3 g/dL (33.0-35.0); MEAN CORPUSCULAR VOLUME 87.4 fL (80.0-100.0); MEAN PLATELET VOLUME 8.5 fL (7.4-11.0); MONOCYTES # (AUTO) 0.8 x10^3/uL (0.3-0.8); MONOCYTES % (AUTO) 5.2 % (0.0-13.0); NEUTROPHILS # (AUTO) 11.7 x10^3/uL (2.2-4.8); NEUTROPHILS % (AUTO) 75.9 % (42.0-75.0); PLATELET COUNT 390 X10^3/uL (150.0-450.0); RED BLOOD COUNT 3.65 X10^6/uL (3.5-5.4); RED CELL DISTRIBUTION WIDTH 15.7 % (11.6-16.5); WHITE BLOOD COUNT 15.4 X10^3/uL (3.6-10.0)
[2018-04-15] MEDS: NS 1000 ML 1,000 ML IV SCH ×2 (14:24→23:48)
[2018-04-15] MEDS: PEPCID 20 MG IV PREMIX* 20 MG/50 ML BAG IV PRN (14:25)
[2018-04-15] MEDS: PHENERGAN INJ 25 MG IVP PRN (14:26)
[2018-04-15] MEDS: DILAUDID INJ IVP PRN ×3 (14:26→23:15)
[2018-04-15 14:35] LABS: ALANINE AMINOTRANSFERASE 18 Units/L (12-78); ALKALINE PHOSPHATASE 132 Units/L (46-116); AMYLASE 62 Units/L (25-115); ASPARTATE AMINO TRANSFERASE 14 Units/L (15-37); BLOOD UREA NITROGEN 8 mg/dL (7-18); CALCIUM 9.2 mg/dL (8.5-10.1); CARBON DIOXIDE 24.7 mmol/L (21-32); CHLORIDE 105 mmol/L (98-107); COR NA(FOR HYPERGLY) 143 mmol/L (136-145); CREATININE 0.98 mg/dL (0.55-1.02); LIPASE 267 Units/L (73-393); SODIUM 142 mmol/L (136-145); TOTAL PROTEIN 8.4 g/dL (6.4-8.2); eGFR NON BLACK RACES > 60 (>60)
[2018-04-15 14:36] LABS: SERUM PREGNANCY TEST, QUAL NEGATIVE <10 mIU/mL
--- NOTE | 2018-04-15 21:33 | RAD ---
Abdomen 2 images single-view Indication: Abdominal pain Findings: Cholecystectomy clips noted. There is rounded opacity in the right lung base. There is no free air or pneumatosis. No dilated loop of small bowel seen. No convincing abnormal calcific density seen Impression: 1. Right lower lobe lung lesion, seen unchanged from recent chest radiograph. See previous dictation. Consider PET-CT follow-up to exclude neoplasm given persistence over the past several months. 2. No high-grade obstruction, free air or pneumatosis seen otherwise. Reported By:
[2018-04-16] MEDS: PHENERGAN INJ 25 MG IVP PRN ×2 (01:52→23:35)
[2018-04-16] MEDS: PEPCID 20 MG IV PREMIX* 20 MG/50 ML BAG IV PRN (01:52)
[2018-04-16] MEDS: DILAUDID INJ IVP PRN ×6 (03:00→23:35)
[2018-04-16] MEDS: NS 1000 ML 1,000 ML IV SCH ×4 (03:05→23:57)
[2018-04-16] MEDS ORDERED: BENADRYL CAP 50 MG PO ONE (03:53)
[2018-04-16] MEDS ORDERED: BENADRYL CAP/TAB 25 MG PO ONE (03:54)
[2018-04-16 06:29] LABS: BASOPHILS # (AUTO) 0.1 X10^3/uL (0.0-0.1); BASOPHILS % (AUTO) 0.5 % (0.2-1.0); EOSINOPHILS # (AUTO) 0.3 x10^3/uL (0.0-0.2); EOSINOPHILS % (AUTO) 3.1 % (0.9-2.9); HEMATOCRIT 25.8 % (36.0-47.0); HEMOGLOBIN 8.8 g/dL (12.0-16.0); LYMPHOCYTES # (AUTO) 2.7 X10^3/uL (1.3-2.9); LYMPHOCYTES % (AUTO) 25.2 % (21.0-51.0); MEAN CORPUSCULAR HEMOGLOBIN 30.2 pg (27.0-34.0); MEAN CORPUSCULAR HGB CONC 34.1 g/dL (33.0-35.0); MEAN CORPUSCULAR VOLUME 88.7 fL (80.0-100.0); MEAN PLATELET VOLUME 8.6 fL (7.4-11.0); MONOCYTES # (AUTO) 0.9 x10^3/uL (0.3-0.8); MONOCYTES % (AUTO) 8.6 % (0.0-13.0); NEUTROPHILS # (AUTO) 6.8 x10^3/uL (2.2-4.8); NEUTROPHILS % (AUTO) 62.6 % (42.0-75.0); PLATELET COUNT 302 X10^3/uL (150.0-450.0); RED BLOOD COUNT 2.91 X10^6/uL (3.5-5.4); RED CELL DISTRIBUTION WIDTH 15.7 % (11.6-16.5); WHITE BLOOD COUNT 10.9 X10^3/uL (3.6-10.0)
[2018-04-16 06:48] LABS: ALANINE AMINOTRANSFERASE 20 Units/L (12-78); ALBUMIN 2.6 g/dL (3.4-5.0); ALKALINE PHOSPHATASE 106 Units/L (46-116); ASPARTATE AMINO TRANSFERASE 20 Units/L (15-37); BLOOD UREA NITROGEN 7 mg/dL (7-18); CALCIUM 8.1 mg/dL (8.5-10.1); CARBON DIOXIDE 23.7 mmol/L (21-32); CHLORIDE 106 mmol/L (98-107); COR CA(FOR HYPOALB) 9.2 mg/dL (8.5-10.1); CREATININE 0.82 mg/dL (0.55-1.02); SODIUM 142 mmol/L (136-145); TOTAL PROTEIN 7.1 g/dL (6.4-8.2); eGFR NON BLACK RACES > 60 (>60)
[2018-04-16 14:44] VITALS: BMI 28.1
--- NOTE | 2018-04-16 14:46 | DR.H&P ---
H&P - History & Physical for Day of: H&P Date: 04/15/18 - Chief Complaint Chief Complaint: ABDOMINAL PAIN, N/V, ELEVATED BP - History of Present Illness History of Present Illness: PT IS 32BF, DIRECT ADMIT FROM DR OSVALDO PALOMINO OFFICE WITH CO INTRACTABLE ABDOMINAL PAIN WITH N/V AND UNCONTROLLED HYPERTENSION. PT STATES SHE HAS BEEN VERY SICK FOR PAST WEEK, CANNOT KEEP PO MEDICATION DOWN. PT CO EPIGASTRIC AND LUQ TENDERNRESS. 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 PT REPORTS SHE HAD A BRONCHOSCOPY AT [facility] IN STORY. PT ADMITTED FOR TREATMENT OF ACUTE ILLNESS - Past Medical History Past Medical History: Diabetes, Hypertension, Renal Disease Additional Medical History: MORBID OBESITY - Past Surgical History Surgical History: Cholecystectomy, Ortho Surgery - Family History Family Medical History: Diabetes Mellitus - Social History Does patient currently use any type of tobacco product: No Have you used tobacco products in the last 12 months: No Type of Tobacco Use: None Does any household member use tobacco: No Alcohol Use: None Drug Use: None - Medications Home Medications: Penicillins Allergy (Verified 12/10/17 14:38) ceftazidime [From Fortaz] Adverse Reaction (Verified 12/10/17 14:38) CONTINUE taking the following medications amlodipine [Norvasc] 10 mg PO DAILY 04/15/18 [History] metoclopramide HCl [Reglan] 10 mg PO ACHS 04/15/18 [History] ranitidine HCl [Zantac] 300 mg PO BID 04/15/18 [History] - Review of Systems Constitutional: No Symptoms Reported Eyes: No Symptoms Reported ENT: No Symptoms Reported Respiratory: No Symptoms Reported Cardiovascular: No Symptoms Reported Gastrointestinal: Nausea, Vomiting, Abdominal Pain. denies: Constipation Genitourinary: No Symptoms Reported Musculoskeletal: Back Pain Skin: No Symptoms Reported Neurological: No Symptoms Reported - Physical Exam Vital Signs: Temperature 98.4 F Pulse Rate [Left Brachial] 96 Respiratory Rate 20 Blood Pressure [Right Arm] 140/89 Blood Pressure [Left Arm] 152/91 Blood Pressure 140/89 O2 Sat by Pulse Oximetry 96 Oriented: Normal Eyes: Blurred Vision (chronic, blind in right eye) Ear: Normal Nose: Normal Throat: Dry Respiratory: RLL Diminished, LLL Diminished Cardiovascular: Normal. negative: Edema : Normal Auscultation: Bowel Sounds: Normal Palpation: Normal Tenderness: RUQ, LUQ, Epigastric Skin: Decreased Turgur Musculoskeletal: Back:Thoracic, Back:Lumbar, Deformity Psychiatric: Anxiety Affect: Anxious Speech Pattern: Clear, Appropriate - Assessment/Plan (1) Abdominal pain Status: Acute Plan: ADMIT, ADMISSION LABS CBC CMP ABD SERIES, UA, AMYLASE AND LIPASE. BLOOD SUGAR CONTROL, GENTLE IV HYDRATION. BP CONTROL, VERIFY HOME MEDICATION. NPO, PAIN AND NAUSEA MANAGEMENT (2) Nausea & vomiting Status: Acute (3) Uncontrolled hypertension Status: Chronic (4) Uncontrolled diabetes mellitus Status: Chronic (5) Chronic kidney disease (CKD) Status: Chronic (6) Diabetic nephropathy Qualifiers: Diabetes mellitus type: type 1 Qualified Code(s): E10.21 - Type 1 diabetes mellitus with diabetic nephropathy Status: Chronic - Allergies Allergies/Adverse Reactions: Allergies Allergy/AdvReac Type Severity Reaction Status Date / Time Penicillins Allergy Verified 12/10/17 14:38 ceftazidime [From Fortaz] AdvReac Verified 12/10/17 14:38
--- NOTE | 2018-04-16 14:57 | PCM.PROG ---
Progress Note - Progress Note for Day of Date of Exam: 04/16/18 - Subjective Subjective: 32 BF ADMITTED ON 04/15 WITH ABDOMINAL PAIN WITH N/V AND UNCONTROLLED BP. PT BLOOD PRESSURE IMPROVING THIS AM 141/85. PT CONTINUES TO CO EPIGASTRIC TENDERNESS AND UPPER ABDOMINAL PAIN WITH NAUSEA. PT CURRENTLY ON IV NARCOTIC PAIN CONTROL. PT CO VOMITING LAST NIGHT. AMYLASE AND LIPASE WERE NORMAL ON ADMISSION. PLAN TO ADD STOOL STUDIES, CONTINUE GENTLE HYDRATION, AM LABS, BLOOD SUGAR CONTROL, PPI THERAPY - Past Medical Family Social History Past Med/Fam/Surg Hx: No changes since H&P Allergies: Allergies Penicillins Allergy (Verified 12/10/17 14:38) ceftazidime [From Fortaz] Adverse Reaction (Verified 12/10/17 14:38) - Review of Systems ROS: No change since H&P - Vital Signs and I&O's Vital Signs: Temperature 98.4 F Pulse Rate [Left Brachial] 96 Respiratory Rate 20 Blood Pressure [Right Arm] 140/89 Blood Pressure [Left Arm] 152/91 Blood Pressure 140/89 O2 Sat by Pulse Oximetry 96 Intake and Output: Intake & Output 04/14/18 04/15/18 04/16/18 04/17/18 11:59 11:59 11:59 11:59 Intake Total 1584 / 1584 Output Total 0 / 0 Balance 1584 / 1584 - Physical Exam Oriented: Normal Eyes: Blurred Vision (chronic, blind in right eye) Ear: Normal Nose: Normal Throat: Dry Respiratory: Diminished Cardiovascular: Normal. negative: Edema : Normal Auscultation: Bowel Sounds: Normal Tenderness: RUQ, LUQ, Epigastric Skin: Decreased Turgur Musculoskeletal: Back:Thoracic, Back:Lumbar, Deformity Psychiatric: Anxiety Affect: Anxious Speech Pattern: Clear, Appropriate - Laboratory and Diagnostics Result Diagrams: 04/16/18 04:48 04/16/18 04:48 Labs: Laboratory WBC 10.9 X10^3/uL (3.6-10.0) H 04/16/18 04:48 RBC 2.91 X10^6/uL (3.5-5.4) L 04/16/18 04:48 Hgb 8.8 g/dL (12.0-16.0) L 04/16/18 04:48 Hct 25.8 % (36.0-47.0) L 04/16/18 04:48 MCV 88.7 fL (80.0-100.0) 04/16/18 04:48 MCH 30.2 pg (27.0-34.0) 04/16/18 04:48 MCHC 34.1 g/dL (33.0-35.0) 04/16/18 04:48 RDW 15.7 % (11.6-16.5) 04/16/18 04:48 Plt Count 302 X10^3/uL (150.0-450.0) 04/16/18 04:48 MPV 8.6 fL (7.4-11.0) 04/16/18 04:48 Neut % (Auto) 62.6 % (42.0-75.0) 04/16/18 04:48 Lymph % (Auto) 25.2 % (21.0-51.0) 04/16/18 04:48 [place] % (Auto) 8.6 % (0.0-13.0) 04/16/18 04:48 Eos % (Auto) 3.1 % (0.9-2.9) H 04/16/18 04:48 Baso % (Auto) 0.5 % (0.2-1.0) 04/16/18 04:48 Neut # (Auto) 6.8 x10^3/uL (2.2-4.8) H 04/16/18 04:48 Lymph # (Auto) 2.7 X10^3/uL (1.3-2.9) 04/16/18 04:48 [place] # (Auto) 0.9 x10^3/uL (0.3-0.8) H 04/16/18 04:48 Eos # (Auto) 0.3 x10^3/uL (0.0-0.2) H 04/16/18 04:48 Baso # (Auto) 0.1 X10^3/uL (0.0-0.1) 04/16/18 04:48 Absolute Nucleated RBC 0.1 /100WBC 04/16/18 04:48 Sodium 142 mmol/L (136-145) 04/16/18 04:48 Corrected Sodium TNP 04/16/18 04:48 Potassium 3.3 mmol/L (3.5-5.1) L 04/16/18 04:48 Chloride 106 mmol/L (98-107) 04/16/18 04:48 Carbon Dioxide 23.7 mmol/L (21-32) 04/16/18 04:48 BUN 7 mg/dL (7-18) 04/16/18 04:48 Creatinine 0.82 mg/dL (0.55-1.02) 04/16/18 04:48 Est GFR (MDRD) Af Amer > 60 (>60) 04/16/18 04:48 Est GFR (MDRD) Non-Af > 60 (>60) 04/16/18 04:48 Glucose 90 mg/dL (65-99) 04/16/18 04:48 POC Glucose (mg/dL) 72 mg/dL (65-99) 04/16/18 11:46 Calcium 8.1 mg/dL (8.5-10.1) L 04/16/18 04:48 Corrected Calcium 9.2 mg/dL (8.5-10.1) 04/16/18 04:48 Total Bilirubin 0.20 mg/dL (0.2-1.0) 04/16/18 04:48 AST 20 Units/L (15-37) 04/16/18 04:48 ALT 20 Units/L (12-78) 04/16/18 04:48 Alkaline Phosphatase 106 Units/L (46-116) 04/16/18 04:48 Total Protein 7.1 g/dL (6.4-8.2) 04/16/18 04:48 Albumin 2.6 g/dL (3.4-5.0) L 04/16/18 04:48 Globulin 4.5 g/dL (2.5-4.5) 04/16/18 04:48 Albumin/Globulin Ratio 0.6 Ratio (1.1-2.1) L 04/16/18 04:48 Amylase 62 Units/L (25-115) 04/15/18 14:13 Lipase 267 Units/L (73-393) 04/15/18 14:13 HCG, Qual Negative <10 mIU/mL 04/15/18 14:13 - Plan (1) Abdominal pain Status: Acute Plan: AM LABS CBC CMP. BLOOD SUGAR CONTROL, GENTLE IV HYDRATION WITH I& OS, STOOL STUDIES. BP CONTROL,PPI THERAPY. NPO, PAIN AND NAUSEA MANAGEMENT (2) Nausea & vomiting Status: Acute (3) Uncontrolled hypertension Status: Chronic (4) Uncontrolled diabetes mellitus Status: Chronic (5) Chronic kidney disease (CKD) Status: Chronic (6) Diabetic nephropathy Status: Chronic Qualifiers: Diabetes mellitus type: type 1 Qualified Code(s): E10.21 - Type 1 diabetes mellitus with diabetic nephropathy
[2018-04-16] MEDS ORDERED: NORCO 7.5/325 MG TAB PO PRN (14:58)
[2018-04-16] MEDS ORDERED: REGLAN INJ 10 MG VIAL IVP PRN (14:58)
[2018-04-16] MEDS ORDERED: MICRO K EXTEN CAP 10 MEQ PO PRN (19:34)
[2018-04-16] MEDS ORDERED: POTASSIUM CHLORIDE LIQ 20 MEQ UDC PO PRN (19:34)
[2018-04-16] MEDS ORDERED: POTASSIUM CHL 40 MEQ/NS 0.45% 500 ML IV PRN (19:34)
[2018-04-16] MEDS ORDERED: POTASSIUM CHL 60 MEQ/NS 0.45% 500 ML IV PRN (19:34)
[2018-04-16] MEDS ORDERED: KLOR-CON PO PRN (19:34)
[2018-04-16] MEDS ORDERED: K-DUR TAB 20 MEQ PO PRN (19:34)
[2018-04-16] MEDS: XALATAN OP SCH (20:52)
[2018-04-16] MEDS: K-RIDER 10 MEQ/NS 100 ML 10 MEQ/100 ML BAG IV PRN ×3 (20:55→23:59)
[2018-04-16] MEDS: ZESTRIL TAB 40 MG PO SCH (20:56)
[2018-04-16] MEDS: ALPHAGAN 0.2% OPHTH SOLN OP SCH (21:03)
[2018-04-17] MEDS: K-RIDER 10 MEQ/NS 100 ML 10 MEQ/100 ML BAG IV PRN ×3 (01:15→17:19)
[2018-04-17] MEDS: MAGNESIUM SULFATE 1 GRAM/100 mL PREMIX 1 GM/100 ML BAG IV PRN ×4 (02:05→05:13)
[2018-04-17] MEDS: DILAUDID INJ IVP PRN ×5 (03:40→20:49)
[2018-04-17] MEDS: NS 1000 ML 1,000 ML IV SCH ×3 (05:13→21:21)
[2018-04-17] MEDS: ALPHAGAN 0.2% OPHTH SOLN OP SCH ×3 (05:47→21:22)
[2018-04-17] MEDS: PEPCID 20 MG IV PREMIX* 20 MG/50 ML BAG IV PRN (06:05)
[2018-04-17] MEDS: HumuLIN R SUBCUT PRN ×2 (06:06→11:47)
[2018-04-17 06:20] LABS: BASOPHILS % (AUTO) 0.4 % (0.2-1.0); EOSINOPHILS # (AUTO) 0.4 x10^3/uL (0.0-0.2); HEMATOCRIT 27.3 % (36.0-47.0); HEMOGLOBIN 9.1 g/dL (12.0-16.0); LYMPHOCYTES # (AUTO) 2.5 X10^3/uL (1.3-2.9); LYMPHOCYTES % (AUTO) 24.5 % (21.0-51.0); MEAN CORPUSCULAR HEMOGLOBIN 29.6 pg (27.0-34.0); MEAN CORPUSCULAR HGB CONC 33.4 g/dL (33.0-35.0); MEAN CORPUSCULAR VOLUME 88.7 fL (80.0-100.0); MEAN PLATELET VOLUME 8.4 fL (7.4-11.0); MONOCYTES # (AUTO) 0.9 x10^3/uL (0.3-0.8); MONOCYTES % (AUTO) 8.9 % (0.0-13.0); NEUTROPHILS # (AUTO) 6.3 x10^3/uL (2.2-4.8); NEUTROPHILS % (AUTO) 62.2 % (42.0-75.0); PLATELET COUNT 310 X10^3/uL (150.0-450.0); RED BLOOD COUNT 3.08 X10^6/uL (3.5-5.4); RED CELL DISTRIBUTION WIDTH 15.8 % (11.6-16.5); WHITE BLOOD COUNT 10.1 X10^3/uL (3.6-10.0)
[2018-04-17 06:40] LABS: ALANINE AMINOTRANSFERASE 22 Units/L (12-78); ALBUMIN 2.7 g/dL (3.4-5.0); ALKALINE PHOSPHATASE 115 Units/L (46-116); ASPARTATE AMINO TRANSFERASE 11 Units/L (15-37); BLOOD UREA NITROGEN 6 mg/dL (7-18); CALCIUM 8.4 mg/dL (8.5-10.1); CARBON DIOXIDE 25.6 mmol/L (21-32); CHLORIDE 104 mmol/L (98-107); COR CA(FOR HYPOALB) 9.4 mg/dL (8.5-10.1); COR NA(FOR HYPERGLY) 144 mmol/L (136-145); CREATININE 1.04 mg/dL (0.55-1.02); MAGNESIUM 2.7 mg/dL (1.7-2.9); SODIUM 142 mmol/L (136-145); TOTAL PROTEIN 7.2 g/dL (6.4-8.2); eGFR NON BLACK RACES > 60 (>60)
[2018-04-17] MEDS: NORVASC TAB 10 MG PO SCH (08:52)
[2018-04-17] MEDS: ZESTRIL TAB 40 MG PO SCH ×2 (08:52→20:48)
[2018-04-17] MEDS ORDERED: COSOPT OPTH OP SCH (09:00)
[2018-04-17] MEDS: XALATAN OP SCH (20:53)
[2018-04-18] MEDS: DILAUDID INJ IVP PRN ×3 (01:18→09:35)
[2018-04-18] MEDS: NS 1000 ML 1,000 ML IV SCH (05:29)
[2018-04-18] MEDS: ALPHAGAN 0.2% OPHTH SOLN OP SCH (05:29)
[2018-04-18 06:55] LABS: BASOPHILS % (AUTO) 0.5 % (0.2-1.0); EOSINOPHILS # (AUTO) 0.3 x10^3/uL (0.0-0.2); EOSINOPHILS % (AUTO) 3.4 % (0.9-2.9); HEMATOCRIT 26.4 % (36.0-47.0); HEMOGLOBIN 8.9 g/dL (12.0-16.0); LYMPHOCYTES # (AUTO) 2.2 X10^3/uL (1.3-2.9); LYMPHOCYTES % (AUTO) 24.1 % (21.0-51.0); MEAN CORPUSCULAR HGB CONC 33.6 g/dL (33.0-35.0); MEAN CORPUSCULAR VOLUME 89.2 fL (80.0-100.0); MEAN PLATELET VOLUME 8.6 fL (7.4-11.0); MONOCYTES # (AUTO) 0.9 x10^3/uL (0.3-0.8); MONOCYTES % (AUTO) 9.3 % (0.0-13.0); NEUTROPHILS # (AUTO) 5.8 x10^3/uL (2.2-4.8); NEUTROPHILS % (AUTO) 62.7 % (42.0-75.0); PLATELET COUNT 288 X10^3/uL (150.0-450.0); RED BLOOD COUNT 2.96 X10^6/uL (3.5-5.4); RED CELL DISTRIBUTION WIDTH 16.3 % (11.6-16.5); WHITE BLOOD COUNT 9.2 X10^3/uL (3.6-10.0)
[2018-04-18 07:32] LABS: ALANINE AMINOTRANSFERASE 18 Units/L (12-78); ALBUMIN 2.6 g/dL (3.4-5.0); ALKALINE PHOSPHATASE 106 Units/L (46-116); ASPARTATE AMINO TRANSFERASE 11 Units/L (15-37); BLOOD UREA NITROGEN 8 mg/dL (7-18); CALCIUM 8.4 mg/dL (8.5-10.1); CARBON DIOXIDE 23.4 mmol/L (21-32); CHLORIDE 105 mmol/L (98-107); COR CA(FOR HYPOALB) 9.5 mg/dL (8.5-10.1); COR NA(FOR HYPERGLY) 141 mmol/L (136-145); CREATININE 0.92 mg/dL (0.55-1.02); SODIUM 141 mmol/L (136-145); TOTAL PROTEIN 6.9 g/dL (6.4-8.2); eGFR NON BLACK RACES > 60 (>60)
[2018-04-18] MEDS: NORVASC TAB 10 MG PO SCH (09:35)
[2018-04-18] MEDS: ZESTRIL TAB 40 MG PO SCH (09:35)
[2018-04-18 12:57] VITALS: BP 170/80
--- NOTE | 2018-05-14 11:39 | PCM.PROG ---
Progress Note - Progress Note for Day of Date of Exam: 04/17/18 - Subjective Subjective: 32 BF ADMITTED ON 04/15 WITH ABDOMINAL PAIN WITH N/V AND UNCONTROLLED BP. PT CONTINUES TO CO EPIGASTRIC TENDERNESS AND UPPER ABDOMINAL PAIN WITH NAUSEA. PT CURRENTLY ON IV NARCOTIC PAIN CONTROL. CONTINUE GENTLE HYDRATION, AM LABS, BLOOD SUGAR CONTROL, PPI THERAPY - Past Medical Family Social History Past Med/Fam/Surg Hx: No changes since H&P Allergies: Allergies Penicillins Allergy (Verified 12/10/17 14:38) ceftazidime [From Fortaz] Adverse Reaction (Verified 12/10/17 14:38) - Review of Systems ROS: No change since H&P - Vital Signs and I&O's Vital Signs: Temperature 98.0 F Pulse Rate [Right Brachial] 96 Pulse Rate [Left Brachial] 90 Respiratory Rate 20 Blood Pressure [Right Arm] 170/80 Blood Pressure [Left Arm] 141/84 Blood Pressure 140/89 O2 Sat by Pulse Oximetry 99 - Physical Exam Oriented: Normal Eyes: Blurred Vision (chronic, blind in right eye) Ear: Normal Nose: Normal Throat: Dry Respiratory: Diminished Cardiovascular: Normal. negative: Edema : Normal Auscultation: Bowel Sounds: Normal Palpation: Normal Tenderness: RUQ, LUQ, Epigastric Skin: Decreased Turgur Musculoskeletal: Back:Thoracic, Back:Lumbar, Deformity Psychiatric: Anxiety Mood Description: Calm Affect: Anxious Speech Pattern: Clear, Appropriate - Laboratory and Diagnostics Result Diagrams: 04/18/18 05:50 04/18/18 05:50 Labs: Laboratory WBC 9.2 X10^3/uL (3.6-10.0) 04/18/18 05:50 RBC 2.96 X10^6/uL (3.5-5.4) L 04/18/18 05:50 Hgb 8.9 g/dL (12.0-16.0) L 04/18/18 05:50 Hct 26.4 % (36.0-47.0) L 04/18/18 05:50 MCV 89.2 fL (80.0-100.0) 04/18/18 05:50 MCH 30.0 pg (27.0-34.0) 04/18/18 05:50 MCHC 33.6 g/dL (33.0-35.0) 04/18/18 05:50 RDW 16.3 % (11.6-16.5) 04/18/18 05:50 Plt Count 288 X10^3/uL (150.0-450.0) 04/18/18 05:50 MPV 8.6 fL (7.4-11.0) 04/18/18 05:50 Neut % (Auto) 62.7 % (42.0-75.0) 04/18/18 05:50 Lymph % (Auto) 24.1 % (21.0-51.0) 04/18/18 05:50 [place] % (Auto) 9.3 % (0.0-13.0) 04/18/18 05:50 Eos % (Auto) 3.4 % (0.9-2.9) H 04/18/18 05:50 Baso % (Auto) 0.5 % (0.2-1.0) 04/18/18 05:50 Neut # (Auto) 5.8 x10^3/uL (2.2-4.8) H 04/18/18 05:50 Lymph # (Auto) 2.2 X10^3/uL (1.3-2.9) 04/18/18 05:50 [place] # (Auto) 0.9 x10^3/uL (0.3-0.8) H 04/18/18 05:50 Eos # (Auto) 0.3 x10^3/uL (0.0-0.2) H 04/18/18 05:50 Baso # (Auto) 0.0 X10^3/uL (0.0-0.1) 04/18/18 05:50 Absolute Nucleated RBC 0.1 /100WBC 04/18/18 05:50 Sodium 141 mmol/L (136-145) 04/18/18 05:50 Corrected Sodium 141 mmol/L (136-145) 04/18/18 05:50 Potassium 3.8 mmol/L (3.5-5.1) 04/18/18 05:50 Chloride 105 mmol/L (98-107) 04/18/18 05:50 Carbon Dioxide 23.4 mmol/L (21-32) 04/18/18 05:50 BUN 8 mg/dL (7-18) 04/18/18 05:50 Creatinine 0.92 mg/dL (0.55-1.02) 04/18/18 05:50 Est GFR (MDRD) Af Amer > 60 (>60) 04/18/18 05:50 Est GFR (MDRD) Non-Af > 60 (>60) 04/18/18 05:50 Glucose 117 mg/dL (65-99) H 04/18/18 05:50 POC Glucose (mg/dL) 111 mg/dL (65-99) H 04/18/18 11:39 Calcium 8.4 mg/dL (8.5-10.1) L 04/18/18 05:50 Corrected Calcium 9.5 mg/dL (8.5-10.1) 04/18/18 05:50 Magnesium 2.7 mg/dL (1.7-2.9) 04/17/18 05:45 Total Bilirubin 0.10 mg/dL (0.2-1.0) L 04/18/18 05:50 AST 11 Units/L (15-37) L 04/18/18 05:50 ALT 18 Units/L (12-78) 04/18/18 05:50 Alkaline Phosphatase 106 Units/L (46-116) 04/18/18 05:50 Total Protein 6.9 g/dL (6.4-8.2) 04/18/18 05:50 Albumin 2.6 g/dL (3.4-5.0) L 04/18/18 05:50 Globulin 4.3 g/dL (2.5-4.5) 04/18/18 05:50 Albumin/Globulin Ratio 0.6 Ratio (1.1-2.1) L 04/18/18 05:50 Amylase 62 Units/L (25-115) 04/15/18 14:13 Lipase 267 Units/L (73-393) 04/15/18 14:13 HCG, Qual Negative <10 mIU/mL 04/15/18 14:13 - Plan (1) Abdominal pain Status: Acute Plan: AM LABS CBC CMP. BLOOD SUGAR CONTROL, GENTLE IV HYDRATION WITH I& OS, STOOL STUDIES. BP CONTROL,PPI THERAPY. PAIN AND NAUSEA MANAGEMENT (2) Nausea & vomiting Status: Acute (3) Right ankle sprain Status: Acute (4) Chronic kidney disease (CKD) Status: Chronic (5) Diabetes mellitus Status: Chronic Plan: monitor bs
--- NOTE | 2018-05-14 11:43 | PCM.DCPLAN ---
Discharge Summary - Admission Date Date of Admission: 04/16/18 - Discharge Date Discharge Date: 04/18/18 - Admission Diagnoses (1) Abdominal pain Status: Acute (2) Nausea & vomiting Status: Acute (3) Right ankle sprain Status: Acute (4) Chronic kidney disease (CKD) Status: Chronic (5) Diabetes mellitus Status: Chronic - Discharge Diagnoses Discharge Diagnosis: SAME ADMISSION DIAGNOSIS - Discharge Medications Discharge Medications: Home Medication List amlodipine [Norvasc] 10 mg PO DAILY 04/15/18 [History] metoclopramide HCl [Reglan] 10 mg PO ACHS 04/15/18 [History] ranitidine HCl [Zantac] 300 mg PO BID 04/15/18 [History] Prescriptions: - Hospital Course Vital Signs: Temperature 98.0 F Pulse Rate [Right Brachial] 96 Pulse Rate [Left Brachial] 90 Respiratory Rate 20 Blood Pressure [Right Arm] 170/80 Blood Pressure [Left Arm] 141/84 Blood Pressure 140/89 O2 Sat by Pulse Oximetry 99 Latest Lab Results: Laboratory Last Values WBC 9.2 X10^3/uL (3.6-10.0) 04/18/18 05:50 RBC 2.96 X10^6/uL (3.5-5.4) L 04/18/18 05:50 Hgb 8.9 g/dL (12.0-16.0) L 04/18/18 05:50 Hct 26.4 % (36.0-47.0) L 04/18/18 05:50 MCV 89.2 fL (80.0-100.0) 04/18/18 05:50 MCH 30.0 pg (27.0-34.0) 04/18/18 05:50 MCHC 33.6 g/dL (33.0-35.0) 04/18/18 05:50 RDW 16.3 % (11.6-16.5) 04/18/18 05:50 Plt Count 288 X10^3/uL (150.0-450.0) 04/18/18 05:50 MPV 8.6 fL (7.4-11.0) 04/18/18 05:50 Neut % (Auto) 62.7 % (42.0-75.0) 04/18/18 05:50 Lymph % (Auto) 24.1 % (21.0-51.0) 04/18/18 05:50 [place] % (Auto) 9.3 % (0.0-13.0) 04/18/18 05:50 Eos % (Auto) 3.4 % (0.9-2.9) H 04/18/18 05:50 Baso % (Auto) 0.5 % (0.2-1.0) 04/18/18 05:50 Neut # (Auto) 5.8 x10^3/uL (2.2-4.8) H 04/18/18 05:50 Lymph # (Auto) 2.2 X10^3/uL (1.3-2.9) 04/18/18 05:50 [place] # (Auto) 0.9 x10^3/uL (0.3-0.8) H 04/18/18 05:50 Eos # (Auto) 0.3 x10^3/uL (0.0-0.2) H 04/18/18 05:50 Baso # (Auto) 0.0 X10^3/uL (0.0-0.1) 04/18/18 05:50 Absolute Nucleated RBC 0.1 /100WBC 04/18/18 05:50 Sodium 141 mmol/L (136-145) 04/18/18 05:50 Corrected Sodium 141 mmol/L (136-145) 04/18/18 05:50 Potassium 3.8 mmol/L (3.5-5.1) 04/18/18 05:50 Chloride 105 mmol/L (98-107) 04/18/18 05:50 Carbon Dioxide 23.4 mmol/L (21-32) 04/18/18 05:50 BUN 8 mg/dL (7-18) 04/18/18 05:50 Creatinine 0.92 mg/dL (0.55-1.02) 04/18/18 05:50 Est GFR (MDRD) Af Amer > 60 (>60) 04/18/18 05:50 Est GFR (MDRD) Non-Af > 60 (>60) 04/18/18 05:50 Glucose 117 mg/dL (65-99) H 04/18/18 05:50 POC Glucose (mg/dL) 111 mg/dL (65-99) H 04/18/18 11:39 Calcium 8.4 mg/dL (8.5-10.1) L 04/18/18 05:50 Corrected Calcium 9.5 mg/dL (8.5-10.1) 04/18/18 05:50 Magnesium 2.7 mg/dL (1.7-2.9) 04/17/18 05:45 Total Bilirubin 0.10 mg/dL (0.2-1.0) L 04/18/18 05:50 AST 11 Units/L (15-37) L 04/18/18 05:50 ALT 18 Units/L (12-78) 04/18/18 05:50 Alkaline Phosphatase 106 Units/L (46-116) 04/18/18 05:50 Total Protein 6.9 g/dL (6.4-8.2) 04/18/18 05:50 Albumin 2.6 g/dL (3.4-5.0) L 04/18/18 05:50 Globulin 4.3 g/dL (2.5-4.5) 04/18/18 05:50 Albumin/Globulin Ratio 0.6 Ratio (1.1-2.1) L 04/18/18 05:50 Amylase 62 Units/L (25-115) 04/15/18 14:13 Lipase 267 Units/L (73-393) 04/15/18 14:13 HCG, Qual Negative <10 mIU/mL 04/15/18 14:13 Hospital Course: 32 BF ADMITTED ON 04/15 WITH ABDOMINAL PAIN WITH N/V AND UNCONTROLLED BP. BP IMPROVED WELL NAUSEA AND VOMITING. BLOOD GLUCOSE WERE MONITORED AND TREATED WELL. LABS AND IMAGING WERE OBTAINED AND REVIEWED. PATIENT STABLE AND WAS DISCHARGED HOME. - Discharge Plan Disposition: HOME, SELF-CARE Condition: Stable - Follow ups/Referrals Follow ups/Referrals: KOREY RUDD [Primary Care Provider] - 1 WEEK - Instructions Instructions: Form - Daily Diabetes Record, Diabetes Mellitus and Sick Day Management, Nausea and Vomiting, Adult, [id number], Abdominal Pain, Adult, [id number] Forms: Patient Portal
== END 2018-04-18 13:38 | disposition home or self-care (01) | DRG 392 ==
LOC: MED/SURG
PROVIDERS: ADMIT Internal Medicine; ATTEND Internal Medicine
CPT/HCPCS: 36415; 74000; 74018; 80053; 82150; 83690; 83735; 84132; 84703; 85025; 97163; 97166; A4216; A4222; S0028; G0378; J1170; J1642; J1815; J2405; J2550; J2765; J3475; J3480; J7030

== ENCOUNTER 2018-06-19 19:51 | Inpatient (IN) ==
--- NOTE | 2018-06-19 20:25 | DR.CP ---
HPI - Time Seen Time seen: 20:22 - Complaint Chief Complaint Doctor Comments: Patient states she has been having sharp left sided chest pain for the past 24 hours getting progressively worst. States onset of pain while setting in a chair at home about twelve hours ago watching tv. States the pain is sharp going down her left arm. States she took an aspirin earlier today but has not had any nitroglycerin. She is a patient of Dr. 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 states she is on her period now and she is not s exually active. She denies fever, chills, dysuria, hematuria, nausea, vomiting or diarrhea. States she has a history blood clots in her lungs about six months ago. She is not taking any anticoagulants. States she took tylenol earlier for pain. - Reviewed Nurses Notes Review: Yes - Source History Provided: Patient - Mode of Arrival Mode of Arrival: Ambulatory - Timing Came on: Gradually Pain: Present Now - Duration Duration: Constant How lon Duration: Hours - Location Location of Chest Pain: Chest Chest Pain Radiation Location: Left Arm - Context Onset: At rest Cardiac Risk Factors: HTN PE Risk Factors: None History of: Similar pain in the past, DVT/PE, Aspirin in last 24 hours Prehospital Care: [facility] - Quality Quality: Sharp - Severity Severity: Severe - Modifying Factors Worsens: Nothing Impoves: Nothing - Associated Signs and Symptoms Associated Signs and Symptoms: None PMH - PMH Past Medical History: Hypertension, Diabetes, Renal Disease Past Surgical History: Yes Surgical History: Cholecystectomy, Ortho Surgery - Family History Family Medical History: Diabetes Mellitus - Social History Do you use any recreational Drugs:: No ROS - Review of Systems Constitutional: No Symptoms Reported Eyes: No Symptoms Reported ENTM: No Symptoms Reported Respiratoy: No Symptoms Reported Cardiovascular: No Symptoms Reported, Chest Pain Gastrointestinal/Abdominal: No Symptoms Reported. negative: See HPI, Abdominal Pain, Constipation, Diarrhea, Nausea, Vomiting, Food Intolerance, Other Genitourinary: No Symptoms Reported Neurological: No Symptoms Reported Musculoskeletal: No Symptoms Reported Integumentary: No Symptoms Reported Hematologic/Lymphatic: No Symptoms Reported Endocrine: No Symptoms Reported Psychiatric: No Symptoms Reported. negative: See HPI, Anxiety, Depression, Hallucinations, Excessive crying, Suicidal, Other PE - General Limitations: No Limitations General Appearance: Alert, In Distress (slight) - Head Head Exam: Normal Inspection, Atraumatic, Normocephalic - Eyes Eye exam: Normal Appearance, PERRL, EOMI. negative: Scleral Icterus, Conjunctival Injection, Nystagmus, Miosis, Mydrasis, Periorbital Swelling, Periorbital Tenderness, Other - ENT ENT Exam: Normal Exam, Normal Oropharynx, Normal External Ear Exam, Mucous Membranes Moist, TM's Normal Bilaterally - Chest Chest Inspection: Normal Inspection, Symmetric Chest Wall Rise. negative: Tenderness, Rash, Abscess, Other - Respiratory Respiratory Exam: Normal Lung Sounds Bilat Respiratory Exam: Bilateral Clear to Auscultation - Cardiovascular Cardiovascular Exam: Regular Rate, Normal Rhythm, Normal Heart Sounds Pulse: Normal Edema: Normal - Abdominal Exam Abdominal Exam: Normal Inspection, Normal Bowel Sounds, Soft Abdominal Tenderness: negative: RUQ, RLQ, LUQ, LLQ, Epigastrium, Suprapubic, Diffuse, Mild, Moderate, Severe, Other - Extremities Extremities Exam: Normal Inspection, Full ROM, Normal Capillary Refill (right leg only). negative: Tenderness (left BKA), Edema, Joint Swelling, Calf Tenderness (left BKA) - Back Back Exam: Normal Inspection, Full ROM. negative: Tenderness, (R) CVA Tenderness, (L) CVA Tenderness, Muscle Spasm, Paraspinal Tenderness, Vertebral Tenderness, Rashes, (R) Sciatic Notch Tenderness, (L) Sciatic Notch Tendern, (R) Straight Leg Raise, (L) Straight Leg Raise, Other - Neurologic Neurological Exam: Alert, Oriented X3, CN II-XII Intact, Reflexes Normal. nega tive: Normal Gait (gait not tested) - Psychiatric Psychiatric Exam: Normal Affect, Normal Mood. negative: Depressed, Agitated, Anxious, Flat Affect, Manic, Homicidal Ideation, Suicidal Ideation, Other - Skin Skin Exam: Warm, Dry, Intact, Normal Color - Vitals Vitals: Temperature 97.5 F Pulse Rate [Apical] 104 Pulse Rate 111 Respiratory Rate 18 Blood Pressure [Right Arm] 132/78 Blood Pressure [Left Arm] 125/69 Blood Pressure 109/59 O2 Sat by Pulse Oximetry 97 Course - Reevaluation 1st: Improved - Consultation Called: 23:05 Call Returned: 23:05 (Dr. Auguste to admit) - Education/Counseling Education/Counseling: Patient, Family Educated On: Treatment, Diagnosis, Prognosis, Needs for Follow Up ROR - Labs Reviewed Laboratory Results Reviewed?: Yes (All labs and x-ray results reviewed and discussed with patient) Result Diagrams: 06/19/18 21:15 06/19/18 21:15 - XRAY XRAY Interpreted by: Radiologist (CXR: Cavitary nodule in right infrahilar region replaced by focal area of scarring or atelectasis.) - EKG Rate: 109 Epps: Normal Rhythm: NSR Block: RBBB Hypertrophy: None ST: Nonsp - Labs Reviewed Laboratory: WBC 9.6 X10^3/uL (3.6-10.0) 06/19/18 21:15 RBC 3.04 X10^6/uL (3.5-5.4) L 06/19/18 21:15 Hgb 8.9 g/dL (12.0-16.0) L 06/19/18 21:15 Hct 27.1 % (36.0-47.0) L 06/19/18 21:15 MCV 89.1 fL (80.0-100.0) 06/19/18 21:15 MCH 29.1 pg (27.0-34.0) 06/19/18 21:15 MCHC 32.7 g/dL (33.0-35.0) L 06/19/18 21:15 RDW 14.0 % (11.6-16.5) 06/19/18 21:15 Plt Count 355 X10^3/uL (150.0-450.0) 06/19/18 21:15 MPV 8.0 fL (7.4-11.0) 06/19/18 21:15 Neut % (Auto) 56.5 % (42.0-75.0) 06/19/18 21:15 Lymph % (Auto) 29.3 % (21.0-51.0) 06/19/18 21:15 [place] % (Auto) 8.1 % (0.0-13.0) 06/19/18 21:15 Eos % (Auto) 5.7 % (0.9-2.9) H 06/19/18 21:15 Baso % (Auto) 0.4 % (0.2-1.0) 06/19/18 21:15 Neut # (Auto) 5.4 x10^3/uL (2.2-4.8) H 06/19/18 21:15 Lymph # (Auto) 2.8 X10^3/uL (1.3-2.9) 06/19/18 21:15 [place] # (Auto) 0.8 x10^3/uL (0.3-0.8) 06/19/18 21:15 Eos # (Auto) 0.5 x10^3/uL (0.0-0.2) H 06/19/18 21:15 Baso # (Auto) 0.0 X10^3/uL (0.0-0.1) 06/19/18 21:15 Absolute Nucleated RBC 0.0 /100WBC 06/19/18 21:15 D-Dimer 3500 ng/mL (0-400) H* 06/19/18 21:15 Sodium 141 mmol/L (136-145) 06/19/18 21:15 Corrected Sodium 142 mmol/L (136-145) 06/19/18 21:15 Potassium 5.3 mmol/L (3.5-5.1) H 06/19/18 21:15 Chloride 108 mmol/L (98-107) H 06/19/18 21:15 Carbon Dioxide 22.1 mmol/L (21-32) 06/19/18 21:15 BUN 46 mg/dL (7-18) H 06/19/18 21:15 Creatinine 2.33 mg/dL (0.55-1.02) H 06/19/18 21:15 Est GFR (MDRD) Af Amer 31 (>60) L 06/19/18 21:15 Est GFR (MDRD) Non-Af 26 (>60) L 06/19/18 21:15 Glucose 141 mg/dL (65-99) H 06/19/18 21:15 Calcium 8.9 mg/dL (8.5-10.1) 06/19/18 21:15 Corrected Calcium 10.0 mg/dL (8.5-10.1) 06/19/18 21:15 Magnesium 2.0 mg/dL (1.7-2.9) 06/19/18 21:15 Total Bilirubin 0.10 mg/dL (0.2-1.0) L 06/19/18 21:15 AST 13 Units/L (15-37) L 06/19/18 21:15 ALT 25 Units/L (12-78) 06/19/18 21:15 Alkaline Phosphatase 116 Units/L (46-116) 06/19/18 21:15 Creatine Kinase 33 Units/L (26-192) 06/19/18 21:15 CK-MB (CK-2) < 1.0 ng/mL (0-4.0) 06/19/18 21:15 CK/CKMB % Calc 3.0 % (<4) 06/19/18 21:15 Troponin I < 0.02 ng/mL (0-1.5) 06/19/18 21:15 Total Protein 7.6 g/dL (6.4-8.2) 06/19/18 21:15 Albumin 2.6 g/dL (3.4-5.0) L 06/19/18 21:15 Globulin 5.0 g/dL (2.5-4.5) H 06/19/18 21:15 Albumin/Globulin Ratio 0.5 Ratio (1.1-2.1) L 06/19/18 21:15 HCG, Qual Negative <10 mIU/mL 06/19/18 21:15 - Diagnosis Discharge Problem: Abnormal laboratory test result, Chronic kidney disease (CKD), Essential hypertension, Hx pulmonary embolism, Dehydration Chest pain Qualifiers: Ischemic chest pain type: unspecified angina pectoris type - Discharge Plan Disposition: ADMITTED INPATIENT Condition: Stable - Follow ups/Referrals Follow ups/Referrals: KOREY AUGUSTE [Primary Care Provider] - 3 days - Instructions
[2018-06-19] MEDS: NS 1000 ML 1,000 ML IV SCH (20:51)
[2018-06-19] MEDS ORDERED: TORADOL 30 MG VIAL IVP STA (20:53)
[2018-06-19] MEDS ORDERED: TORADOL 30 MG VIAL ONE (21:06)
[2018-06-19 21:41] LABS: BASOPHILS % (AUTO) 0.4 % (0.2-1.0); EOSINOPHILS # (AUTO) 0.5 x10^3/uL (0.0-0.2); EOSINOPHILS % (AUTO) 5.7 % (0.9-2.9); HEMATOCRIT 27.1 % (36.0-47.0); HEMOGLOBIN 8.9 g/dL (12.0-16.0); LYMPHOCYTES # (AUTO) 2.8 X10^3/uL (1.3-2.9); LYMPHOCYTES % (AUTO) 29.3 % (21.0-51.0); MEAN CORPUSCULAR HEMOGLOBIN 29.1 pg (27.0-34.0); MEAN CORPUSCULAR HGB CONC 32.7 g/dL (33.0-35.0); MEAN CORPUSCULAR VOLUME 89.1 fL (80.0-100.0); MONOCYTES # (AUTO) 0.8 x10^3/uL (0.3-0.8); MONOCYTES % (AUTO) 8.1 % (0.0-13.0); NEUTROPHILS # (AUTO) 5.4 x10^3/uL (2.2-4.8); NEUTROPHILS % (AUTO) 56.5 % (42.0-75.0); PLATELET COUNT 355 X10^3/uL (150.0-450.0); RED BLOOD COUNT 3.04 X10^6/uL (3.5-5.4); WHITE BLOOD COUNT 9.6 X10^3/uL (3.6-10.0)
[2018-06-19 21:52] LABS: BLOOD UREA NITROGEN 46 mg/dL (7-18); CALCIUM 8.9 mg/dL (8.5-10.1); CARBON DIOXIDE 22.1 mmol/L (21-32); CHLORIDE 108 mmol/L (98-107); COR NA(FOR HYPERGLY) 142 mmol/L (136-145); CREATININE 2.33 mg/dL (0.55-1.02); SODIUM 141 mmol/L (136-145); TROPONIN I < 0.02 ng/mL (0-1.5); eGFR NON BLACK RACES 26 (>60)
[2018-06-19 21:56] LABS: ALANINE AMINOTRANSFERASE 25 Units/L (12-78); ALBUMIN 2.6 g/dL (3.4-5.0); ALKALINE PHOSPHATASE 116 Units/L (46-116); ASPARTATE AMINO TRANSFERASE 13 Units/L (15-37); CREATINE KINASE 33 Units/L (26-192); CREATINE KINASE MB < 1.0 ng/mL (0-4.0); TOTAL PROTEIN 7.6 g/dL (6.4-8.2)
[2018-06-19 21:57] LABS: SERUM PREGNANCY TEST, QUAL NEGATIVE <10 mIU/mL
--- NOTE | 2018-06-19 22:08 | RAD ---
Exam: Portable chest History: 32-year-old female with chest pain. Comparison: Previous chest radiograph from 05/13/2018. Findings: Right chest wall port is again seen with the tip of the catheter at the caval atrial junction. Heart size and pulmonary vasculature are normal. Focal area of scarring or atelectasis is seen in the right infrahilar region. Otherwise lungs are clear. No significant effusion on either side. Bony thorax is unremarkable. Impression: Previously identified cavitary nodule in the right infrahilar region has now been replaced by focal area of scarring or atelectasis. No acute abnormality is seen on this exam. Reported By:
[2018-06-19] MEDS ORDERED: LOVENOX INJ 100 MG SYR SC SCH (23:00)
[2018-06-19] MEDS: LOVENOX INJ 100 MG SYR SC SCH (23:24)
[2018-06-20] MEDS ORDERED: PEPCID 20 MG IV PREMIX* 0 MG/0 ML BAG IV ONE (00:20)
[2018-06-20] MEDS ORDERED: MORPHINE SULFATE INJ 2 MG INJ ONE (03:38)
[2018-06-20 03:52] LABS: BASOPHILS % (AUTO) 0.3 % (0.2-1.0); EOSINOPHILS # (AUTO) 0.6 x10^3/uL (0.0-0.2); EOSINOPHILS % (AUTO) 5.8 % (0.9-2.9); HEMATOCRIT 24.4 % (36.0-47.0); HEMOGLOBIN 7.7 g/dL (12.0-16.0); LYMPHOCYTES # (AUTO) 3.8 X10^3/uL (1.3-2.9); LYMPHOCYTES % (AUTO) 38.5 % (21.0-51.0); MEAN CORPUSCULAR HEMOGLOBIN 28.8 pg (27.0-34.0); MEAN CORPUSCULAR HGB CONC 31.6 g/dL (33.0-35.0); MEAN CORPUSCULAR VOLUME 91.2 fL (80.0-100.0); MEAN PLATELET VOLUME 8.3 fL (7.4-11.0); MONOCYTES # (AUTO) 0.9 x10^3/uL (0.3-0.8); MONOCYTES % (AUTO) 9.3 % (0.0-13.0); NEUTROPHILS # (AUTO) 4.6 x10^3/uL (2.2-4.8); NEUTROPHILS % (AUTO) 46.1 % (42.0-75.0); PLATELET COUNT 314 X10^3/uL (150.0-450.0); RED BLOOD COUNT 2.67 X10^6/uL (3.5-5.4); RED CELL DISTRIBUTION WIDTH 13.9 % (11.6-16.5); WHITE BLOOD COUNT 9.9 X10^3/uL (3.6-10.0)
[2018-06-20 04:05] LABS: HYPOCHROMASIA SLIGHT; PLATELET MORPHOLOGY COMMENT NORMAL (NORMAL)
[2018-06-20 04:06] LABS: ALANINE AMINOTRANSFERASE 25 Units/L (12-78); ALBUMIN 2.3 g/dL (3.4-5.0); ALKALINE PHOSPHATASE 105 Units/L (46-116); ASPARTATE AMINO TRANSFERASE 15 Units/L (15-37); BLOOD UREA NITROGEN 48 mg/dL (7-18); CALCIUM 8.5 mg/dL (8.5-10.1); CARBON DIOXIDE 19.8 mmol/L (21-32); CHLORIDE 109 mmol/L (98-107); CHOL/HDL RATIO 3.6 (0.0-5.0); CHOLESTEROL 135 mg/dL (0-200); COR CA(FOR HYPOALB) 9.9 mg/dL (8.5-10.1); COR NA(FOR HYPERGLY) 141 mmol/L (136-145); CREATINE KINASE 33 Units/L (26-192); CREATININE 2.46 mg/dL (0.55-1.02); HDL CHOLESTEROL 37 mg/dL (40-60); SODIUM 139 mmol/L (136-145); TOTAL PROTEIN 6.8 g/dL (6.4-8.2); TRIGLYCERIDES 120 mg/dL (0-150); TROPONIN I < 0.02 ng/mL (0-1.5); eGFR NON BLACK RACES 24 (>60)
[2018-06-20 06:15] LABS: BILIRUBIN,URINE NEGATIVE (NEGATIVE); BLOOD/HEMOGLOBIN,URINE 3+ (NEGATIVE); GLUCOSE, URINE NEGATIVE (NEGATIVE); KETONES,URINE NEGATIVE (NEGATIVE); LEUKOCYTE ESTERASE ,URINE 3+ (NEGATIVE); NITRITES,URINE NEGATIVE (NEGATIVE); PROTEIN,URINE 2+ (NEGATIVE); UROBILINOGEN,URINE NORMAL (NORMAL)
[2018-06-20 06:19] LABS: APPEARANCE,URINE CLOUDY (CLEAR); COLOR,URINE YELLOW (YELLOW)
[2018-06-20 06:23] LABS: BACTERIA,URINE 1+ /HPF (NEGATIVE); RBC,URINE NONE SEEN /HPF (NONE SEEN); SQUAMOUS EPITHELIAL CELL,UR NEGATIVE /HPF (NEGATIVE)
[2018-06-20 08:10] VITALS: BMI 29.8
[2018-06-20] MEDS: LOVENOX INJ 100 MG SYR SC SCH ×2 (08:59→22:00)
[2018-06-20] MEDS ORDERED: LOVENOX INJ 100 MG SYR SC SCH (09:00)
[2018-06-20] MEDS: MORPHINE SULFATE INJ 2 MG INJ IVP PRN ×4 (09:12→22:00)
[2018-06-20] MEDS: NS 1000 ML 1,000 ML IV SCH ×2 (11:11→16:59)
--- NOTE | 2018-06-20 13:43 | DR.H&P ---
H&P - History & Physical for Day of: H&P Date: 06/19/18 - Chief Complaint Chief Complaint: chest pain - History of Present Illness History of Present Illness: Patient states she has been having sharp left sided chest pain for the past 24 hours getting progressively worst. States onset of pain while setting in a chair at home about twelve hours ago watching tv. States the pain is sharp going down her left arm. States she took an aspirin earlier today but has not had any nitroglycerin. She is a patient of Dr. 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 states she is on her period now and she is not sexually active. She denies fever, chills, dysuria, hematuria, nausea, vomiting or diarrhea. States she has a history blood clots in her lungs about six months ago. She is not taking any anticoagulants. States she took tylenol earlier for pain. Pt has PMH of CRF, DM, HTN, OA, GERD. - Past Medical History Past Medical History: Hypertension, Diabetes, Renal Disease Additional Medical History: MORBID OBESITY - Past Surgical History Surgical History: Cholecystectomy - Family History Family Medical History: Diabetes Mellitus, Hypertension - Social History Does patient currently use any type of tobacco product: No Have you used tobacco products in the last 12 months: No Type of Tobacco Use: None How many years tobacco product used: 0 Does any household member use tobacco: No Alcohol Use: None Drug Use: None - Medications Home Medications: Penicillins Allergy (Verified 12/10/17 14:38) ceftazidime [From Fortaz] Adverse Reaction (Verified 12/10/17 14:38) CONTINUE taking the following medications atorvastatin 40 mg PO DAILY 06/19/18 [History] clopidogrel 75 mg PO DAILY 06/19/18 [History] metoclopramide HCl 10 mg PO TID 06/19/18 [History] - Review of Systems Constitutional: Weakness Eyes: Vision Change ENT: No Symptoms Reported Respiratory: Shortness of Breath Cardiovascular: Chest Pain Gastrointestinal: No Symptoms Reported Genitourinary: No Symptoms Reported Musculoskeletal: Back Pain Skin: No Symptoms Reported Neurological: Weakness - Physical Exam Vital Signs: Temperature 97.7 F Pulse Rate [Apical] 97 Pulse Rate 111 Respiratory Rate 18 Blood Pressure [Right Arm] 132/78 Blood Pressure [Left Arm] 111/66 Blood Pressure 109/59 O2 Sat by Pulse Oximetry 100 Oriented: Normal Eyes: Blurred Vision Ear: Normal Nose: Normal Throat: Normal Respiratory: RLL Diminished, LLL Diminished Cardiovascular: Normal : Normal Auscultation: Bowel Sounds: Normal Palpation: Normal Tenderness: Normal Skin: Decreased Turgur Musculoskeletal: Back:Midline, Deformity (left aka) Psychiatric: Normal Affect: Anxious Speech Pattern: Clear, Appropriate - Assessment/Plan (1) Chest pain Qualifiers: Ischemic chest pain type: unspecified angina pectoris type Status: Acute Plan: admit, serial ce ekg. bp and lipid control. blood sugar monitoring, vq scan r/o PE. verify home medication. supplemental o2 (2) Abnormal laboratory test result Status: Acute (3) Hx pulmonary embolism Status: Acute (4) Uncontrolled hypertension Status: Chronic (5) Diabetes mellitus Status: Chronic (6) Chronic kidney disease (CKD) Status: Chronic (7) Essential hypertension Status: Chronic (8) Diabetic nephropathy Qualifiers: Diabetes mellitus type: type 1 Qualified Code(s): E10.21 - Type 1 diabetes mellitus with diabetic nephropathy Status: Chronic (9) CKD (chronic kidney disease) stage 4, GFR 15-29 ml/min Status: Chronic - Allergies Allergies/Adverse Reactions: Allergies Allergy/AdvReac Type Severity Reaction Status Date / Time Penicillins Allergy Verified 12/10/17 14:38 ceftazidime [From Fortaz] AdvReac Verified 12/10/17 14:38
[2018-06-20] MEDS ORDERED: KAYEXALATE SUSP PO ONE (13:46)
[2018-06-20] MEDS ORDERED: TYGACIL 50 MG VIAL 100 MG in NS 100 ML IV 100 ML IV ONE (17:27)
[2018-06-20] MEDS: PLAVIX PO SCH (18:08)
[2018-06-20] MEDS: LIPITOR TAB 40 MG PO SCH (18:08)
[2018-06-20] MEDS: REGLAN TAB 10 MG PO SCH (22:01)
[2018-06-20] MEDS: PHENERGAN INJ 25 MG IV PRN (23:56)
[2018-06-21] MEDS: MORPHINE SULFATE INJ 2 MG INJ IVP PRN ×5 (02:05→20:00)
[2018-06-21] MEDS: ZOFRAN INJ 4 MG VIAL IVP PRN ×2 (02:08→10:16)
[2018-06-21 03:20] LABS: BASOPHILS # (AUTO) 0.1 X10^3/uL (0.0-0.1); BASOPHILS % (AUTO) 0.8 % (0.2-1.0); EOSINOPHILS # (AUTO) 0.7 x10^3/uL (0.0-0.2); EOSINOPHILS % (AUTO) 7.2 % (0.9-2.9); HEMATOCRIT 26.4 % (36.0-47.0); HEMOGLOBIN 8.6 g/dL (12.0-16.0); LYMPHOCYTES # (AUTO) 2.5 X10^3/uL (1.3-2.9); MEAN CORPUSCULAR HEMOGLOBIN 28.8 pg (27.0-34.0); MEAN CORPUSCULAR HGB CONC 32.7 g/dL (33.0-35.0); MEAN CORPUSCULAR VOLUME 88.1 fL (80.0-100.0); MEAN PLATELET VOLUME 8.1 fL (7.4-11.0); MONOCYTES # (AUTO) 0.7 x10^3/uL (0.3-0.8); MONOCYTES % (AUTO) 7.4 % (0.0-13.0); NEUTROPHILS # (AUTO) 5.7 x10^3/uL (2.2-4.8); NEUTROPHILS % (AUTO) 58.6 % (42.0-75.0); PLATELET COUNT 342 X10^3/uL (150.0-450.0); RED CELL DISTRIBUTION WIDTH 13.8 % (11.6-16.5); WHITE BLOOD COUNT 9.8 X10^3/uL (3.6-10.0)
[2018-06-21 03:44] LABS: ALANINE AMINOTRANSFERASE 23 Units/L (12-78); ALBUMIN 2.4 g/dL (3.4-5.0); ALKALINE PHOSPHATASE 114 Units/L (46-116); ASPARTATE AMINO TRANSFERASE 17 Units/L (15-37); BLOOD UREA NITROGEN 44 mg/dL (7-18); CALCIUM 8.7 mg/dL (8.5-10.1); CARBON DIOXIDE 22.1 mmol/L (21-32); CREATINE KINASE 49 Units/L (26-192); CREATININE 1.78 mg/dL (0.55-1.02); SODIUM 139 mmol/L (136-145); TOTAL PROTEIN 7.2 g/dL (6.4-8.2); TROPONIN I < 0.02 ng/mL (0-1.5); eGFR NON BLACK RACES 35 (>60)
[2018-06-21] MEDS ORDERED: KAYEXALATE SUSP PO ONE (03:58)
[2018-06-21] MEDS ORDERED: KAYEXALATE SUSP ONE (04:01)
[2018-06-21] MEDS: NS 1000 ML 1,000 ML IV SCH ×3 (05:42→21:09)
[2018-06-21] MEDS: REGLAN TAB 10 MG PO SCH (05:43)
[2018-06-21] MEDS: PHENERGAN INJ 25 MG IV PRN ×2 (06:05→20:00)
[2018-06-21 06:39] LABS: CHLORIDE 107 mmol/L (98-107)
[2018-06-21] MEDS ORDERED: KAYEXALATE SUSP PO SCH (09:00)
[2018-06-21] MEDS: TYGACIL 50 MG VIAL 50 MG in NS 100 ML IV 100 ML IV SCH ×2 (09:03→21:00)
[2018-06-21] MEDS: PLAVIX PO SCH (09:04)
[2018-06-21] MEDS: LIPITOR TAB 40 MG PO SCH (09:04)
[2018-06-21] MEDS: LOVENOX INJ 100 MG SYR SC SCH ×2 (09:04→21:12)
[2018-06-21] MEDS ORDERED: NORMODYNE INJ 20 MG VIAL IVP ONE (11:41)
[2018-06-21] MEDS: PERCOCET TAB 5/325 MG PO SCH ×2 (12:38→21:10)
[2018-06-21] MEDS: NORVASC TAB 10 MG PO SCH (12:39)
[2018-06-21] MEDS: COREG TAB 3.125 MG PO SCH ×2 (12:39→21:10)
[2018-06-21 12:50] LABS: BLOOD UREA NITROGEN 41 mg/dL (7-18); CARBON DIOXIDE 23.3 mmol/L (21-32); CHLORIDE 105 mmol/L (98-107); CREATININE 1.57 mg/dL (0.55-1.02); SODIUM 137 mmol/L (136-145); eGFR NON BLACK RACES 40 (>60)
[2018-06-21] MEDS: APRESOLINE TAB 25 MG PO SCH ×2 (14:37→22:00)
[2018-06-21] MEDS: CELEXA PO SCH (21:09)
[2018-06-22] MEDS: MORPHINE SULFATE INJ 2 MG INJ IVP PRN ×6 (00:50→20:18)
[2018-06-22 03:54] LABS: BASOPHILS # (AUTO) 0.1 X10^3/uL (0.0-0.1); BASOPHILS % (AUTO) 0.9 % (0.2-1.0); EOSINOPHILS # (AUTO) 0.6 x10^3/uL (0.0-0.2); EOSINOPHILS % (AUTO) 5.8 % (0.9-2.9); HEMATOCRIT 29.1 % (36.0-47.0); HEMOGLOBIN 9.4 g/dL (12.0-16.0); LYMPHOCYTES # (AUTO) 3.2 X10^3/uL (1.3-2.9); LYMPHOCYTES % (AUTO) 29.5 % (21.0-51.0); MEAN CORPUSCULAR HEMOGLOBIN 28.7 pg (27.0-34.0); MEAN CORPUSCULAR HGB CONC 32.3 g/dL (33.0-35.0); MEAN CORPUSCULAR VOLUME 88.7 fL (80.0-100.0); MEAN PLATELET VOLUME 7.5 fL (7.4-11.0); MONOCYTES # (AUTO) 0.7 x10^3/uL (0.3-0.8); MONOCYTES % (AUTO) 6.8 % (0.0-13.0); NEUTROPHILS # (AUTO) 6.2 x10^3/uL (2.2-4.8); PLATELET COUNT 388 X10^3/uL (150.0-450.0); RED BLOOD COUNT 3.28 X10^6/uL (3.5-5.4); RED CELL DISTRIBUTION WIDTH 13.3 % (11.6-16.5); WHITE BLOOD COUNT 10.9 X10^3/uL (3.6-10.0)
[2018-06-22] MEDS: PHENERGAN INJ 25 MG IV PRN ×3 (03:55→20:20)
[2018-06-22 04:12] LABS: ALANINE AMINOTRANSFERASE 22 Units/L (12-78); ALBUMIN 2.7 g/dL (3.4-5.0); ALKALINE PHOSPHATASE 134 Units/L (46-116); ASPARTATE AMINO TRANSFERASE 12 Units/L (15-37); BLOOD UREA NITROGEN 42 mg/dL (7-18); CARBON DIOXIDE 22.3 mmol/L (21-32); CHLORIDE 104 mmol/L (98-107); CKMB % 1.9 % (<4); CREATINE KINASE 53 Units/L (26-192); CREATINE KINASE MB < 1.0 ng/mL (0-4.0); CREATININE 1.49 mg/dL (0.55-1.02); SODIUM 137 mmol/L (136-145); TOTAL PROTEIN 7.8 g/dL (6.4-8.2); TROPONIN I < 0.02 ng/mL (0-1.5); eGFR NON BLACK RACES 43 (>60)
[2018-06-22] MEDS: APRESOLINE TAB 25 MG PO SCH ×3 (06:52→21:26)
[2018-06-22] MEDS: NS 1000 ML 1,000 ML IV SCH ×3 (07:49→20:15)
[2018-06-22] MEDS: LOVENOX INJ 100 MG SYR SC SCH ×2 (08:15→20:16)
[2018-06-22] MEDS: COREG TAB 3.125 MG PO SCH ×2 (08:16→20:16)
[2018-06-22] MEDS: NORVASC TAB 10 MG PO SCH (08:16)
[2018-06-22] MEDS: LIPITOR TAB 40 MG PO SCH (08:16)
[2018-06-22] MEDS: PLAVIX PO SCH (08:16)
[2018-06-22] MEDS: TYGACIL 50 MG VIAL 50 MG in NS 100 ML IV 100 ML IV SCH ×2 (08:17→20:17)
[2018-06-22] MEDS: ZOFRAN INJ 4 MG VIAL IVP PRN ×2 (08:21→16:34)
[2018-06-22] MEDS ORDERED: PLAVIX PO SCH (09:00)
[2018-06-22] MEDS: PERCOCET TAB 5/325 MG PO SCH ×2 (11:31→20:17)
[2018-06-22] MEDS: CELEXA PO SCH (20:15)
[2018-06-22] MEDS: COLACE CAP 100 MG PO PRN (22:13)
[2018-06-23] MEDS: MORPHINE SULFATE INJ 2 MG INJ IVP PRN ×4 (00:29→12:35)
[2018-06-23] MEDS: ZOFRAN INJ 4 MG VIAL IVP PRN ×3 (00:29→14:42)
[2018-06-23] MEDS: NS 1000 ML 1,000 ML IV SCH ×2 (01:51→09:08)
[2018-06-23] MEDS: PHENERGAN INJ 25 MG IV PRN (04:29)
[2018-06-23] MEDS: APRESOLINE TAB 25 MG PO SCH ×2 (05:13→13:17)
[2018-06-23 05:46] LABS: ALANINE AMINOTRANSFERASE 20 Units/L (12-78); ALBUMIN 2.6 g/dL (3.4-5.0); ALKALINE PHOSPHATASE 140 Units/L (46-116); ASPARTATE AMINO TRANSFERASE 16 Units/L (15-37); BASOPHILS # (AUTO) 0.1 X10^3/uL (0.0-0.1); BASOPHILS % (AUTO) 0.6 % (0.2-1.0); BLOOD UREA NITROGEN 35 mg/dL (7-18); CALCIUM 9.2 mg/dL (8.5-10.1); CARBON DIOXIDE 21.9 mmol/L (21-32); CHLORIDE 103 mmol/L (98-107); COR CA(FOR HYPOALB) 10.3 mg/dL (8.5-10.1); CREATININE 1.29 mg/dL (0.55-1.02); EOSINOPHILS # (AUTO) 0.4 x10^3/uL (0.0-0.2); EOSINOPHILS % (AUTO) 4.4 % (0.9-2.9); HEMATOCRIT 29.8 % (36.0-47.0); HEMOGLOBIN 9.8 g/dL (12.0-16.0); LYMPHOCYTES # (AUTO) 2.7 X10^3/uL (1.3-2.9); LYMPHOCYTES % (AUTO) 31.2 % (21.0-51.0); MEAN CORPUSCULAR HEMOGLOBIN 28.8 pg (27.0-34.0); MEAN CORPUSCULAR VOLUME 87.4 fL (80.0-100.0); MEAN PLATELET VOLUME 7.6 fL (7.4-11.0); MONOCYTES # (AUTO) 0.6 x10^3/uL (0.3-0.8); MONOCYTES % (AUTO) 6.6 % (0.0-13.0); NEUTROPHILS % (AUTO) 57.2 % (42.0-75.0); PLATELET COUNT 426 X10^3/uL (150.0-450.0); RED BLOOD COUNT 3.41 X10^6/uL (3.5-5.4); RED CELL DISTRIBUTION WIDTH 13.5 % (11.6-16.5); SODIUM 134 mmol/L (136-145); TOTAL PROTEIN 7.7 g/dL (6.4-8.2); WHITE BLOOD COUNT 8.7 X10^3/uL (3.6-10.0); eGFR NON BLACK RACES 51 (>60)
[2018-06-23] MEDS: COLACE CAP 100 MG PO PRN (08:16)
[2018-06-23] MEDS: COREG TAB 3.125 MG PO SCH (08:17)
[2018-06-23] MEDS: LIPITOR TAB 40 MG PO SCH (08:17)
[2018-06-23] MEDS: PLAVIX PO SCH (08:17)
[2018-06-23] MEDS: NORVASC TAB 10 MG PO SCH (08:17)
[2018-06-23] MEDS: LOVENOX INJ 100 MG SYR SC SCH (08:17)
[2018-06-23] MEDS: TYGACIL 50 MG VIAL 50 MG in NS 100 ML IV 100 ML IV SCH (08:18)
[2018-06-23] MEDS: PERCOCET TAB 5/325 MG PO SCH (09:08)
[2018-06-23] MEDS: LEVSIN/MAALOX/LIDOC VISC PO SCH ×2 (09:49→12:34)
--- NOTE | 2018-06-23 12:26 | PCM.PROG ---
Progress Note - Progress Note for Day of Date of Exam: 06/21/18 - Subjective Subjective: 32 BF ER ADMISSION ON 06/20 WITH CO CHEST PAIN. PT HAD STENT PLACEMENT 3 WEEKS AGO AND HAS HX OF CRF, DM, UNCONTROLLED HYPERTENSION. PT HAD SERIAL CE ON ADMISSION, CONTINUES WITH CO MILD LEFT UPPER CHEST PAIN, NO SOB. PT K 6.3 THIS AM, BUN 4 CREAT 1.78. PT CRYING ON EXAM AND TACHYCARDIC. PT MOVED TO ICU FOR CONTINUOUS CARDIAC MONITORING AND STRICT I & OS. PT GIVEN PO KAYEXALATE. ENCOURAGE PO WATER INTAKE. - Past Medical Family Social History Allergies: Allergies Penicillins Allergy (Verified 12/10/17 14:38) ceftazidime [From Fortaz] Adverse Reaction (Verified 12/10/17 14:38) - Vital Signs and I&O's Vital Signs: Temperature 97.3 F Pulse Rate [Right Brachial] 106 Pulse Rate [Radial] 109 Pulse Rate [Apical] 96 Pulse Rate 111 Respiratory Rate 12 Blood Pressure [Right Arm] 138/76 Blood Pressure [Left Arm] 144/82 Blood Pressure 109/59 O2 Sat by Pulse Oximetry 94 Intake and Output: Intake & Output 06/21/18 06/22/18 06/23/18 06/24/18 11:59 11:59 11:59 11:59 Intake Total 2634 / 2634 4502 / 4502 3727 / 3727 Output Total 4100 / 4100 3050 / 3050 3350 / 3350 Balance -1466 / -1466 1452 / 1452 377 / 377 - Physical Exam Oriented: Normal Eyes: Blurred Vision Ear: Normal Nose: Normal Throat: Normal Respiratory: Diminished Cardiovascular: Tachycardia : Normal Auscultation: Bowel Sounds: Normal Tenderness: Normal Skin: Decreased Turgur Musculoskeletal: Back:Midline, Deformity (left aka) Psychiatric: Normal Affect: Anxious Speech Pattern: Clear, Appropriate - Laboratory and Diagnostics Result Diagrams: 06/23/18 05:21 06/23/18 05:21 Labs: 06/20/18 16:30 Urine,Clean Catch Urine Culture - Final Escherichia Coli Laboratory WBC 8.7 X10^3/uL (3.6-10.0) 06/23/18 05:21 RBC 3.41 X10^6/uL (3.5-5.4) L 06/23/18 05:21 Hgb 9.8 g/dL (12.0-16.0) L 06/23/18 05:21 Hct 29.8 % (36.0-47.0) L 06/23/18 05:21 MCV 87.4 fL (80.0-100.0) 06/23/18 05:21 MCH 28.8 pg (27.0-34.0) 06/23/18 05:21 MCHC 33.0 g/dL (33.0-35.0) 06/23/18 05:21 RDW 13.5 % (11.6-16.5) 06/23/18 05:21 Plt Count 426 X10^3/uL (150.0-450.0) 06/23/18 05:21 Plt Count Comment Adequate (ADEQUATE) 06/20/18 03:20 MPV 7.6 fL (7.4-11.0) 06/23/18 05:21 Neut % (Auto) 57.2 % (42.0-75.0) 06/23/18 05:21 Lymph % (Auto) 31.2 % (21.0-51.0) 06/23/18 05:21 [place] % (Auto) 6.6 % (0.0-13.0) 06/23/18 05:21 Eos % (Auto) 4.4 % (0.9-2.9) H 06/23/18 05:21 Baso % (Auto) 0.6 % (0.2-1.0) 06/23/18 05:21 Neut # (Auto) 5.0 x10^3/uL (2.2-4.8) H 06/23/18 05:21 Lymph # (Auto) 2.7 X10^3/uL (1.3-2.9) 06/23/18 05:21 [place] # (Auto) 0.6 x10^3/uL (0.3-0.8) 06/23/18 05:21 Eos # (Auto) 0.4 x10^3/uL (0.0-0.2) H 06/23/18 05:21 Baso # (Auto) 0.1 X10^3/uL (0.0-0.1) 06/23/18 05:21 Absolute Nucleated RBC 0.0 /100WBC 06/23/18 05:21 Plt Morphology Comment Normal (NORMAL) 06/20/18 03:20 RBC Morphology Abnormal (NORMAL) A 06/20/18 03:20 Hypochromasia Slight A 06/20/18 03:20 INR Target Range - 06/19/18 23:20 INR 1.03 (0.8-1.3) 06/19/18 23:20 APTT 30.8 SECONDS (22.9-36.5) 06/19/18 23:20 PTT Comment - 06/19/18 23:20 D-Dimer 3500 ng/mL (0-400) H* 06/19/18 21:15 Sodium 134 mmol/L (136-145) L 06/23/18 05:21 Corrected Sodium TNP 06/23/18 05:21 Potassium 4.4 mmol/L (3.5-5.1) 06/23/18 05:21 Chloride 103 mmol/L (98-107) 06/23/18 05:21 Carbon Dioxide 21.9 mmol/L (21-32) 06/23/18 05:21 BUN 35 mg/dL (7-18) H 06/23/18 05:21 Creatinine 1.29 mg/dL (0.55-1.02) H 06/23/18 05:21 Est GFR (MDRD) Af Amer > 60 (>60) 06/23/18 05:21 Est GFR (MDRD) Non-Af 51 (>60) L 06/23/18 05:21 Glucose 98 mg/dL (65-99) 06/23/18 05:21 POC Glucose (mg/dL) 96 mg/dL (65-99) 06/23/18 11:01 Calcium 9.2 mg/dL (8.5-10.1) 06/23/18 05:21 Corrected Calcium 10.3 mg/dL (8.5-10.1) H 06/23/18 05:21 Magnesium 2.0 mg/dL (1.7-2.9) 06/19/18 21:15 Total Bilirubin 0.20 mg/dL (0.2-1.0) 06/23/18 05:21 AST 16 Units/L (15-37) 06/23/18 05:21 ALT 20 Units/L (12-78) 06/23/18 05:21 Alkaline Phosphatase 140 Units/L (46-116) H 06/23/18 05:21 Creatine Kinase 53 Units/L (26-192) 06/22/18 03:36 CK-MB (CK-2) < 1.0 ng/mL (0-4.0) 06/22/18 03:36 CK/CKMB % Calc 1.9 % (<4) 06/22/18 03:36 Troponin I < 0.02 ng/mL (0-1.5) 06/22/18 03:36 Total Protein 7.7 g/dL (6.4-8.2) 06/23/18 05:21 Albumin 2.6 g/dL (3.4-5.0) L 06/23/18 05:21 Globulin 5.1 g/dL (2.5-4.5) H 06/23/18 05:21 Albumin/Globulin Ratio 0.5 Ratio (1.1-2.1) L 06/23/18 05:21 Triglycerides 120 mg/dL (0-150) 06/20/18 03:20 Cholesterol 135 mg/dL (0-200) 06/20/18 03:20 LDL Cholesterol, Calc 74 mg/dL (0-100) 06/20/18 03:20 HDL Cholesterol 37 mg/dL (40-60) L 06/20/18 03:20 Cholesterol/HDL Ratio 3.6 (0.0-5.0) 06/20/18 03:20 HCG, Qual Negative <10 mIU/mL 06/19/18 21:15 Specimen Type Random urine 06/20/18 05:43 Urine Color Yellow (YELLOW) 06/20/18 05:43 Urine Appearance Cloudy (CLEAR) 06/20/18 05:43 Urine pH 5.0 (5.0 - 8.0) 06/20/18 05:43 Ur Specific [place] 1.015 (1.000-1.030) 06/20/18 05:43 Urine Protein 2+ (NEGATIVE) 06/20/18 05:43 Urine Glucose (UA) Negative (NEGATIVE) 06/20/18 05:43 Urine Ketones Negative (NEGATIVE) 06/20/18 05:43 Urine Occult Blood 3+ (NEGATIVE) 06/20/18 05:43 Urine Nitrite Negative (NEGATIVE) 06/20/18 05:43 Urine Bilirubin Negative (NEGATIVE) 06/20/18 05:43 Urine Urobilinogen Normal (NORMAL) 06/20/18 05:43 Ur Leukocyte Esterase 3+ (NEGATIVE) 06/20/18 05:43 Urine RBC None seen /HPF (NONE SEEN) 06/20/18 05:43 Urine WBC Tntc /HPF (NONE SEEN) 06/20/18 05:43 Ur Squamous Epith Cells Negative /HPF (NEGATIVE) 06/20/18 05:43 Urine Bacteria 1+ /HPF (NEGATIVE) 06/20/18 05:43 Ur Culture Indicated? No/not indicated 06/20/18 05:43 Urine Opiates Screen Positive (NEG=<300) A 06/20/18 05:43 Urine Methadone Screen Negative (NEG=<300) 06/20/18 05:43 Ur Barbiturates Screen Negative (NEG=<200) 06/20/18 05:43 Ur Phencyclidine Scrn Negative (NEG=<25) 06/20/18 05:43 Ur Amphetamines Screen Negative (NEG=<1000) 06/20/18 05:43 U Benzodiazepines Scrn Positive (NEG=<200) A 06/20/18 05:43 Urine Cocaine Screen Negative (NEG=<300) 06/20/18 05:43 U Marijuana (THC) Screen Positive (NEG=<50) A 06/20/18 05:43 - Plan (1) Chest pain Status: Acute Qualifiers: Ischemic chest pain type: unspecified angina pectoris type Plan: serial ce ekg. bp and lipid control. blood sugar monitoring, vq scan r/o PE. verify home medication. supplemental o2 (2) Hyperkalemia Status: Acute Plan: REPEAT CE AND EKG. KAYEXALATE PO, REPEAT K. AM LABS (3) Abnormal laboratory test result Status: Acute (4) Hx pulmonary embolism Status: Acute (5) Uncontrolled hypertension Status: Chronic (6) Diabetes mellitus Status: Chronic (7) Chronic kidney disease (CKD) Status: Chronic (8) Essential hypertension Status: Chronic (9) Diabetic nephropathy Status: Chronic Qualifiers: Diabetes mellitus type: type 1 Qualified Code(s): E10.21 - Type 1 diabetes mellitus with diabetic nephropathy (10) CKD (chronic kidney disease) stage 4, GFR 15-29 ml/min Status: Chronic
--- NOTE | 2018-06-23 12:29 | PCM.PROG ---
Progress Note - Progress Note for Day of Date of Exam: 06/22/18 - Subjective Subjective: 32 BF ER ADMISSION ON 06/20 WITH CO CHEST PAIN. PT HAD STENT PLACEMENT 3 WEEKS AGO AND HAS HX OF CRF, DM, UNCONTROLLED HYPERTENSION. PT HAD SERIAL CE ON ADMISSION, CONTINUES WITH CO MILD LEFT UPPER CHEST PAIN, NO SOB. PT MOVED TO ICU ON 06/21 FOR CONTINUOUS CARDIAC MONITORING AND STRICT I & OS AND TREATMENT OF HYPERKALEMIA. PT GIVEN PO KAYEXALATE WITH REPEAT POTASSIUM 4.7 THIS AM. BUN 41, CREAT 1.57 ENCOURAGE PO WATER INTAKE.DISCUSSED PLANS FOR TRANSFER FOR CARDIAC EVALUATION. - Past Medical Family Social History Allergies: Allergies Penicillins Allergy (Verified 12/10/17 14:38) ceftazidime [From Fortaz] Adverse Reaction (Verified 12/10/17 14:38) - Vital Signs and I&O's Vital Signs: Temperature 97.3 F Pulse Rate [Right Brachial] 106 Pulse Rate [Radial] 109 Pulse Rate [Apical] 96 Pulse Rate 111 Respiratory Rate 12 Blood Pressure [Right Arm] 138/76 Blood Pressure [Left Arm] 144/82 Blood Pressure 109/59 O2 Sat by Pulse Oximetry 94 Intake and Output: Intake & Output 06/21/18 06/22/18 06/23/18 06/24/18 11:59 11:59 11:59 11:59 Intake Total 2634 / 2634 4502 / 4502 3727 / 3727 Output Total 4100 / 4100 3050 / 3050 3350 / 3350 Balance -1466 / -1466 1452 / 1452 377 / 377 - Physical Exam Oriented: Normal Eyes: Blurred Vision Ear: Normal Nose: Normal Throat: Normal Respiratory: Diminished Cardiovascular: Tachycardia : Normal Auscultation: Bowel Sounds: Normal Tenderness: Normal Skin: Decreased Turgur Musculoskeletal: Back:Midline, Deformity (left aka) Psychiatric: Normal Affect: Anxious Speech Pattern: Clear, Appropriate - Laboratory and Diagnostics Result Diagrams: 06/23/18 05:21 06/23/18 05:21 Labs: 06/20/18 16:30 Urine,Clean Catch Urine Culture - Final Escherichia Coli Laboratory WBC 8.7 X10^3/uL (3.6-10.0) 06/23/18 05:21 RBC 3.41 X10^6/uL (3.5-5.4) L 06/23/18 05:21 Hgb 9.8 g/dL (12.0-16.0) L 06/23/18 05:21 Hct 29.8 % (36.0-47.0) L 06/23/18 05:21 MCV 87.4 fL (80.0-100.0) 06/23/18 05:21 MCH 28.8 pg (27.0-34.0) 06/23/18 05:21 MCHC 33.0 g/dL (33.0-35.0) 06/23/18 05:21 RDW 13.5 % (11.6-16.5) 06/23/18 05:21 Plt Count 426 X10^3/uL (150.0-450.0) 06/23/18 05:21 Plt Count Comment Adequate (ADEQUATE) 06/20/18 03:20 MPV 7.6 fL (7.4-11.0) 06/23/18 05:21 Neut % (Auto) 57.2 % (42.0-75.0) 06/23/18 05:21 Lymph % (Auto) 31.2 % (21.0-51.0) 06/23/18 05:21 Lyman % (Auto) 6.6 % (0.0-13.0) 06/23/18 05:21 Eos % (Auto) 4.4 % (0.9-2.9) H 06/23/18 05:21 Baso % (Auto) 0.6 % (0.2-1.0) 06/23/18 05:21 Neut # (Auto) 5.0 x10^3/uL (2.2-4.8) H 06/23/18 05:21 Lymph # (Auto) 2.7 X10^3/uL (1.3-2.9) 06/23/18 05:21 Lyman # (Auto) 0.6 x10^3/uL (0.3-0.8) 06/23/18 05:21 Eos # (Auto) 0.4 x10^3/uL (0.0-0.2) H 06/23/18 05:21 Baso # (Auto) 0.1 X10^3/uL (0.0-0.1) 06/23/18 05:21 Absolute Nucleated RBC 0.0 /100WBC 06/23/18 05:21 Plt Morphology Comment Normal (NORMAL) 06/20/18 03:20 RBC Morphology Abnormal (NORMAL) A 06/20/18 03:20 Hypochromasia Slight A 06/20/18 03:20 INR Target Range - 06/19/18 23:20 INR 1.03 (0.8-1.3) 06/19/18 23:20 APTT 30.8 SECONDS (22.9-36.5) 06/19/18 23:20 PTT Comment - 06/19/18 23:20 D-Dimer 3500 ng/mL (0-400) H* 06/19/18 21:15 Sodium 134 mmol/L (136-145) L 06/23/18 05:21 Corrected Sodium TNP 06/23/18 05:21 Potassium 4.4 mmol/L (3.5-5.1) 06/23/18 05:21 Chloride 103 mmol/L (98-107) 06/23/18 05:21 Carbon Dioxide 21.9 mmol/L (21-32) 06/23/18 05:21 BUN 35 mg/dL (7-18) H 06/23/18 05:21 Creatinine 1.29 mg/dL (0.55-1.02) H 06/23/18 05:21 Est GFR (MDRD) Af Amer > 60 (>60) 06/23/18 05:21 Est GFR (MDRD) Non-Af 51 (>60) L 06/23/18 05:21 Glucose 98 mg/dL (65-99) 06/23/18 05:21 POC Glucose (mg/dL) 96 mg/dL (65-99) 06/23/18 11:01 Calcium 9.2 mg/dL (8.5-10.1) 06/23/18 05:21 Corrected Calcium 10.3 mg/dL (8.5-10.1) H 06/23/18 05:21 Magnesium 2.0 mg/dL (1.7-2.9) 06/19/18 21:15 Total Bilirubin 0.20 mg/dL (0.2-1.0) 06/23/18 05:21 AST 16 Units/L (15-37) 06/23/18 05:21 ALT 20 Units/L (12-78) 06/23/18 05:21 Alkaline Phosphatase 140 Units/L (46-116) H 06/23/18 05:21 Creatine Kinase 53 Units/L (26-192) 06/22/18 03:36 CK-MB (CK-2) < 1.0 ng/mL (0-4.0) 06/22/18 03:36 CK/CKMB % Calc 1.9 % (<4) 06/22/18 03:36 Troponin I < 0.02 ng/mL (0-1.5) 06/22/18 03:36 Total Protein 7.7 g/dL (6.4-8.2) 06/23/18 05:21 Albumin 2.6 g/dL (3.4-5.0) L 06/23/18 05:21 Globulin 5.1 g/dL (2.5-4.5) H 06/23/18 05:21 Albumin/Globulin Ratio 0.5 Ratio (1.1-2.1) L 06/23/18 05:21 Triglycerides 120 mg/dL (0-150) 06/20/18 03:20 Cholesterol 135 mg/dL (0-200) 06/20/18 03:20 LDL Cholesterol, Calc 74 mg/dL (0-100) 06/20/18 03:20 HDL Cholesterol 37 mg/dL (40-60) L 06/20/18 03:20 Cholesterol/HDL Ratio 3.6 (0.0-5.0) 06/20/18 03:20 HCG, Qual Negative <10 mIU/mL 06/19/18 21:15 Specimen Type Random urine 06/20/18 05:43 Urine Color Yellow (YELLOW) 06/20/18 05:43 Urine Appearance Cloudy (CLEAR) 06/20/18 05:43 Urine pH 5.0 (5.0 - 8.0) 06/20/18 05:43 Ur Specific Badger 1.015 (1.000-1.030) 06/20/18 05:43 Urine Protein 2+ (NEGATIVE) 06/20/18 05:43 Urine Glucose (UA) Negative (NEGATIVE) 06/20/18 05:43 Urine Ketones Negative (NEGATIVE) 06/20/18 05:43 Urine Occult Blood 3+ (NEGATIVE) 06/20/18 05:43 Urine Nitrite Negative (NEGATIVE) 06/20/18 05:43 Urine Bilirubin Negative (NEGATIVE) 06/20/18 05:43 Urine Urobilinogen Normal (NORMAL) 06/20/18 05:43 Ur Leukocyte Esterase 3+ (NEGATIVE) 06/20/18 05:43 Urine RBC None seen /HPF (NONE SEEN) 06/20/18 05:43 Urine WBC Tntc /HPF (NONE SEEN) 06/20/18 05:43 Ur Squamous Epith Cells Negative /HPF (NEGATIVE) 06/20/18 05:43 Urine Bacteria 1+ /HPF (NEGATIVE) 06/20/18 05:43 Ur Culture Indicated? No/not indicated 06/20/18 05:43 Urine Opiates Screen Positive (NEG=<300) A 06/20/18 05:43 Urine Methadone Screen Negative (NEG=<300) 06/20/18 05:43 Ur Barbiturates Screen Negative (NEG=<200) 06/20/18 05:43 Ur Phencyclidine Scrn Negative (NEG=<25) 06/20/18 05:43 Ur Amphetamines Screen Negative (NEG=<1000) 06/20/18 05:43 U Benzodiazepines Scrn Positive (NEG=<200) A 06/20/18 05:43 Urine Cocaine Screen Negative (NEG=<300) 06/20/18 05:43 U Marijuana (THC) Screen Positive (NEG=<50) A 06/20/18 05:43 - Plan (1) Chest pain Status: Acute Qualifiers: Ischemic chest pain type: unspecified angina pectoris type Plan: serial ce ekg. bp and lipid control. blood sugar monitoring, vq scan r/o PE. verify home medication. supplemental o2 (2) Hyperkalemia Status: Acute Plan: REPEAT CE AND EKG. KAYEXALATE PO, REPEAT K. AM LABS (3) Abnormal laboratory test result Status: Acute (4) Hx pulmonary embolism Status: Acute (5) Uncontrolled hypertension Status: Chronic (6) Diabetes mellitus Status: Chronic (7) Chronic kidney disease (CKD) Status: Chronic (8) Essential hypertension Status: Chronic (9) Diabetic nephropathy Status: Chronic Qualifiers: Diabetes mellitus type: type 1 Qualified Code(s): E10.21 - Type 1 diabetes mellitus with diabetic nephropathy (10) CKD (chronic kidney disease) stage 4, GFR 15-29 ml/min Status: Chronic
[2018-06-23 12:36] LABS: AMYLASE 41 Units/L (25-115); LIPASE 120 Units/L (73-393)
[2018-06-23 14:55] VITALS: BP 159/97
== END 2018-06-23 14:45 | disposition short-term general hospital (02) | DRG 313 ==
LOC: ER 19:53 → MED/SURG 19:53 → ICU 06-21 11:12
PROVIDERS: ADMIT Internal Medicine; ATTEND Internal Medicine
DX: M19.90 Unspecified osteoarthritis, unspecified site; B96.29 Other Escherichia coli [E. coli] as the cause of diseases classified elsewhere; I12.9 Hypertensive chronic kidney disease with stage 1 through stage 4 chronic kidney disease, or unspecified chronic kidney disease; R07.89 Other chest pain; E10.65 Type 1 diabetes mellitus with hyperglycemia; F13.90 Sedative, hypnotic, or anxiolytic use, unspecified, uncomplicated; R68.89 Other general symptoms and signs; R06.02 Shortness of breath; E10.22 Type 1 diabetes mellitus with diabetic chronic kidney disease; Z98.890 Other specified postprocedural states; E87.5 Hyperkalemia; F12.90 Cannabis use, unspecified, uncomplicated; Z86.711 Personal history of pulmonary embolism; N18.4 Chronic kidney disease, stage 4 (severe); K21.9 Gastro-esophageal reflux disease without esophagitis; R94.4 Abnormal results of kidney function studies; R00.0 Tachycardia, unspecified; Z89.512 Acquired absence of left leg below knee; Z95.5 Presence of coronary angioplasty implant and graft
CPT/HCPCS: 36415; 36556; 36591; 71010; 71045; 80048; 80053; 80061; 80307; 81001; 82150; 82550; 82553; 83690; 83735; 84132; 84484; 84703; 85025; 85378; 85610; 85730; 87086; 87088; 87186; 93005; 96365; 96367; 96372; 96374; 96375; 99221; 99284; A4216; A4222; G0378; G0434; J1650; J1885; J2270; J2405; J2550; J3243; J3490; J7030; J7050

== ENCOUNTER 2018-07-07 14:22 | Observation (INO) ==
[2018-07-07] MEDS ORDERED: NITROSTAT SL PRN (15:25)
[2018-07-07 16:07] LABS: BASOPHILS % (AUTO) 0.4 % (0.2-1.0); EOSINOPHILS % (AUTO) 0.1 % (0.9-2.9); HEMATOCRIT 32.1 % (36.0-47.0); HEMOGLOBIN 10.4 g/dL (12.0-16.0); LYMPHOCYTES # (AUTO) 2.1 X10^3/uL (1.3-2.9); LYMPHOCYTES % (AUTO) 19.5 % (21.0-51.0); MEAN CORPUSCULAR HEMOGLOBIN 28.6 pg (27.0-34.0); MEAN CORPUSCULAR HGB CONC 32.4 g/dL (33.0-35.0); MEAN PLATELET VOLUME 7.7 fL (7.4-11.0); MONOCYTES # (AUTO) 0.4 x10^3/uL (0.3-0.8); MONOCYTES % (AUTO) 3.4 % (0.0-13.0); NEUTROPHILS # (AUTO) 8.1 x10^3/uL (2.2-4.8); NEUTROPHILS % (AUTO) 76.6 % (42.0-75.0); PLATELET COUNT 467 X10^3/uL (150.0-450.0); RED BLOOD COUNT 3.65 X10^6/uL (3.5-5.4); RED CELL DISTRIBUTION WIDTH 14.4 % (11.6-16.5); WHITE BLOOD COUNT 10.6 X10^3/uL (3.6-10.0)
[2018-07-07 16:19] LABS: ALANINE AMINOTRANSFERASE 29 Units/L (12-78); ALBUMIN 3.6 g/dL (3.4-5.0); ALKALINE PHOSPHATASE 139 Units/L (46-116); AMYLASE 59 Units/L (25-115); ASPARTATE AMINO TRANSFERASE 14 Units/L (15-37); BLOOD UREA NITROGEN 23 mg/dL (7-18); CALCIUM 10.1 mg/dL (8.5-10.1); CARBON DIOXIDE 27.3 mmol/L (21-32); CHLORIDE 102 mmol/L (98-107); COR NA(FOR HYPERGLY) 144 mmol/L (136-145); CREATININE 1.76 mg/dL (0.55-1.02); LIPASE 149 Units/L (73-393); MAGNESIUM 2.4 mg/dL (1.7-2.9); SODIUM 141 mmol/L (136-145); TOTAL PROTEIN 9.4 g/dL (6.4-8.2); eGFR NON BLACK RACES 35 (>60)
[2018-07-07 16:23] VITALS: BMI 27.3
[2018-07-07 16:36] LABS: CKMB % 2.1 % (<4); CREATINE KINASE 47 Units/L (26-192); CREATINE KINASE MB < 1.0 ng/mL (0-4.0); TROPONIN I < 0.02 ng/mL (0-1.5)
[2018-07-07] MEDS: MORPHINE SULFATE INJ 2 MG INJ IVP PRN ×2 (17:04→21:00)
[2018-07-07] MEDS: NS 1000 ML 1,000 ML IV SCH (17:04)
[2018-07-07] MEDS: PHENERGAN INJ 25 MG IVP PRN ×2 (17:04→23:19)
[2018-07-07] MEDS ORDERED: COREG TAB 3.125 MG PO ONE (18:09)
[2018-07-07] MEDS ORDERED: ZESTRIL TAB 20 MG PO ONE (18:10)
[2018-07-07] MEDS ORDERED: COREG TAB 12.5 MG PO ONE (18:13)
[2018-07-07] MEDS ORDERED: ZESTRIL TAB 20 MG ONE (18:13)
[2018-07-07] MEDS ORDERED: K-DUR TAB 20 MEQ PO PRN (18:33)
[2018-07-07] MEDS ORDERED: MICRO K EXTEN CAP 10 MEQ PO PRN (18:33)
[2018-07-07] MEDS ORDERED: POTASSIUM CHL 60 MEQ/NS 0.45% 500 ML IV PRN (18:33)
[2018-07-07] MEDS ORDERED: KLOR-CON PO PRN (18:33)
[2018-07-07] MEDS ORDERED: POTASSIUM CHLORIDE LIQ 20 MEQ UDC PO PRN (18:33)
[2018-07-07] MEDS ORDERED: POTASSIUM CHL 40 MEQ/NS 0.45% 500 ML IV PRN (18:33)
[2018-07-07] MEDS ORDERED: K-RIDER 10 MEQ/NS 100 ML 10 MEQ/100 ML BAG IV PRN (18:33)
[2018-07-07] MEDS: ZOFRAN INJ 4 MG VIAL IVP PRN (19:37)
--- NOTE | 2018-07-07 20:48 | RAD ---
ACUTE ABDOMINAL SERIES CLINICAL HISTORY: 32-year-old female with recent pneumonia. COMPARISON: Chest radiograph 06/19/2018 FINDINGS: Frontal view of the chest demonstrates unchanged right chest wall chemo port. Cardiopericardial silhouette is not enlarged. There is no focal consolidation, pleural effusion or pneumothorax. Pulmonary vascularity is normal. Abdominal radiographs demonstrate a nonobstructive bowel gas pattern. Gas and significant stool are seen throughout the colon. There is no small bowel distention. There is no radiographic evidence of pneumoperitoneum. Imaged osseous structures are intact. Soft tissues are unremarkable. IMPRESSION: 1. No acute cardiopulmonary process. 2. Nonobstructive bowel gas pattern without radiographic evidence of pneumoperitoneum. 3. Significant stool burden throughout the colon, correlate for constipation. Reported By:
[2018-07-07 22:08] LABS: BILIRUBIN,URINE NEGATIVE (NEGATIVE); BLOOD/HEMOGLOBIN,URINE 2+ (NEGATIVE); GLUCOSE, URINE NEGATIVE (NEGATIVE); KETONES,URINE NEGATIVE (NEGATIVE); LEUKOCYTE ESTERASE ,URINE 1+ (NEGATIVE); NITRITES,URINE NEGATIVE (NEGATIVE); PROTEIN,URINE 4+ (NEGATIVE); UROBILINOGEN,URINE NORMAL (NORMAL)
[2018-07-07 22:25] LABS: APPEARANCE,URINE CLEAR (CLEAR); COLOR,URINE YELLOW (YELLOW); RBC,URINE 0-2 /HPF (NONE SEEN); SQUAMOUS EPITHELIAL CELL,UR FEW /HPF (NEGATIVE)
[2018-07-07 22:26] LABS: BACTERIA,URINE NEGATIVE /HPF (NEGATIVE)
[2018-07-07 22:27] LABS: CREATINE KINASE 51 Units/L (26-192); CREATINE KINASE MB < 1.0 ng/mL (0-4.0); TROPONIN I < 0.02 ng/mL (0-1.5)
[2018-07-08] MEDS ORDERED: PROTONIX INJ 40 MG VIAL ONE (00:44)
[2018-07-08] MEDS: MORPHINE SULFATE INJ 2 MG INJ IVP PRN ×4 (00:50→14:51)
[2018-07-08] MEDS ORDERED: PROTONIX INJ 40 MG VIAL IVP SCH ×2 (01:00→21:00)
[2018-07-08] MEDS: ZOFRAN INJ 4 MG VIAL IVP PRN ×2 (01:14→09:13)
[2018-07-08] MEDS: NS 1000 ML 1,000 ML IV SCH (01:14)
[2018-07-08] MEDS: PHENERGAN INJ 25 MG IVP PRN ×2 (04:19→14:52)
[2018-07-08 05:30] LABS: BASOPHILS % (AUTO) 0.3 % (0.2-1.0); EOSINOPHILS # (AUTO) 0.1 x10^3/uL (0.0-0.2); EOSINOPHILS % (AUTO) 0.8 % (0.9-2.9); HEMATOCRIT 29.6 % (36.0-47.0); HEMOGLOBIN 9.7 g/dL (12.0-16.0); LYMPHOCYTES # (AUTO) 2.8 X10^3/uL (1.3-2.9); LYMPHOCYTES % (AUTO) 25.1 % (21.0-51.0); MEAN CORPUSCULAR HEMOGLOBIN 28.6 pg (27.0-34.0); MEAN CORPUSCULAR HGB CONC 32.7 g/dL (33.0-35.0); MEAN CORPUSCULAR VOLUME 87.5 fL (80.0-100.0); MEAN PLATELET VOLUME 8.2 fL (7.4-11.0); NEUTROPHILS # (AUTO) 7.3 x10^3/uL (2.2-4.8); NEUTROPHILS % (AUTO) 64.8 % (42.0-75.0); PLATELET COUNT 419 X10^3/uL (150.0-450.0); RED BLOOD COUNT 3.38 X10^6/uL (3.5-5.4); RED CELL DISTRIBUTION WIDTH 14.1 % (11.6-16.5); WHITE BLOOD COUNT 11.2 X10^3/uL (3.6-10.0)
[2018-07-08 05:53] LABS: ALANINE AMINOTRANSFERASE 28 Units/L (12-78); ALBUMIN 3.4 g/dL (3.4-5.0); ALKALINE PHOSPHATASE 125 Units/L (46-116); ASPARTATE AMINO TRANSFERASE 13 Units/L (15-37); BLOOD UREA NITROGEN 21 mg/dL (7-18); CALCIUM 9.6 mg/dL (8.5-10.1); CARBON DIOXIDE 28.7 mmol/L (21-32); CHLORIDE 102 mmol/L (98-107); CHOL/HDL RATIO 2.8 (0.0-5.0); CHOLESTEROL 186 mg/dL (0-200); COR NA(FOR HYPERGLY) 141 mmol/L (136-145); CREATINE KINASE 50 Units/L (26-192); CREATINE KINASE MB < 1.0 ng/mL (0-4.0); CREATININE 1.54 mg/dL (0.55-1.02); HDL CHOLESTEROL 66 mg/dL (40-60); SODIUM 140 mmol/L (136-145); TOTAL PROTEIN 8.6 g/dL (6.4-8.2); TRIGLYCERIDES 55 mg/dL (0-150); TROPONIN I < 0.02 ng/mL (0-1.5); eGFR NON BLACK RACES 41 (>60)
[2018-07-08] MEDS ORDERED: DULCOLAX SUPPOSITORY 10 MG RECTAL NR (08:56)
[2018-07-08] MEDS ORDERED: CHRONULAC PO SCH (09:00)
--- NOTE | 2018-07-08 09:44 | DR.H&P ---
H&P - History & Physical for Day of: H&P Date: 07/07/18 - Chief Complaint Chief Complaint: nausea vomiting abdominal pain with chest pain - History of Present Illness History of Present Illness: the patient is a 32-year-old black female who pr esents to the office for the [facility]. complains today of abdominal pain with nausea and vomiting. is having active vomiting with dark green bile. Is unable to keep Zofran for any of her medications down. Does complain of having chest pain as well. Patient is status post stent placement 4 within the last month. Has had multiple admissions with recent transfer back to [place] with no further cardiac intervention needed. Patient does have long history of gastroparesis symptoms and diabetes. Mother is present - Past Medical History Past Medical History: Coronary Artery Disease, Diabetes, Hypertension, Renal Disease Additional Medical History: MORBID OBESITY - Past Surgical History Surgical History: Angioplasty/Stents, Cholecystectomy - Family History Family Medical History: Diabetes Mellitus, Hypertension - Social History Does patient currently use any type of tobacco product: No Have you used tobacco products in the last 12 months: No Type of Tobacco Use: None Does any household member use tobacco: Yes Alcohol Use: None Drug Use: Marijuana - Medications Home Medications: Penicillins Allergy (Verified 12/10/17 14:38) ceftazidime [From Fortri] Adverse Reaction (Verified 12/10/17 14:38) CONTINUE taking the following medications albuterol sulfate 2.5 mg INHALATION DAILY PRN 07/07/18 [History] azithromycin 250 mg PO QDAY 07/07/18 [History] pantoprazole 40 mg PO QDAY 07/07/18 [History] promethazine 25 mg PO Q6H PRN 07/07/18 [History] - Review of Systems Constitutional: Malaise Eyes: No Symptoms Reported ENT: No Symptoms Reported Respiratory: No Symptoms Reported Cardiovascular: Chest Pain Gastrointestinal: Nausea, Vomiting, Abdominal Pain Genitourinary: No Symptoms Reported Musculoskeletal: No Symptoms Reported Skin: No Symptoms Reported Neurological: No Symptoms Reported - Physical Exam Vital Signs: Temperature 98.1 F Pulse Rate [Left Brachial] 74 Respiratory Rate 18 Blood Pressure [Right Arm] 124/72 Blood Pressure [Left Arm] 178/110 Blood Pressure 159/97 O2 Sat by Pulse Oximetry 98 Oriented: Normal Eyes: Normal Ear: Normal Nose: Normal Throat: Normal Respiratory: Clear Throughout Cardiovascular: Normal Auscultation: Bowel Sounds: Normal Palpation: Normal Tenderness: Diffuse, Epigastric Skin: Normal Musculoskeletal: Normal, Deformity (left BKA) Psychiatric: Anxiety Mood Description: Anxious (crying) Affect: Flat Speech Pattern: Clear - Assessment/Plan (1) CAD (coronary artery disease) Status: Acute (2) Abdominal pain Status: Acute (3) Chest pain Qualifiers: Ischemic chest pain type: unspecified angina pectoris type Status: Acute (4) Nausea & vomiting Status: Acute (5) Chronic kidney disease (CKD) Status: Chronic (6) Diabetes mellitus Status: Chronic - Allergies Allergies/Adverse Reactions: Allergies Allergy/AdvReac Type Severity Reaction Status Date / Time Penicillins Allergy Verified 12/10/17 14:38 ceftazidime [From Fortaz] AdvReac Verified 12/10/17 14:38
[2018-07-08] MEDS ORDERED: COREG TAB 3.125 MG PO SCH (10:00)
[2018-07-08] MEDS ORDERED: NORVASC TAB 10 MG PO SCH (10:00)
[2018-07-08] MEDS ORDERED: ZESTRIL TAB 20 MG PO SCH (11:00)
[2018-07-08] MEDS ORDERED: ZESTRIL TAB 20 MG ONE (11:11)
[2018-07-08] MEDS: REGLAN TAB 10 MG PO SCH ×2 (12:01→17:20)
[2018-07-08] MEDS ORDERED: VALIUM PO SCH (14:00)
[2018-07-08] MEDS ORDERED: AMBIEN PO SCH (14:42)
[2018-07-08] MEDS ORDERED: XALATAN OP SCH (15:00)
[2018-07-08 16:52] VITALS: BP 131/75
[2018-07-08] MEDS ORDERED: ZANTAC PO SCH (21:00)
[2018-07-08] MEDS ORDERED: NEURONTIN CAP 100 MG PO SCH (21:00)
[2018-07-08] MEDS ORDERED: COSOPT OPTH OP SCH (21:00)
[2018-07-08] MEDS ORDERED: PERCOCET TAB 5/325 MG PO SCH (21:00)
[2018-07-08] MEDS ORDERED: LIPITOR TAB 40 MG PO SCH (21:00)
[2018-07-08] MEDS ORDERED: FLEXERIL TAB 10 MG PO SCH (22:00)
[2018-07-09] MEDS ORDERED: PLAVIX PO SCH (09:00)
== END 2018-07-08 17:45 | disposition home or self-care (01) ==
LOC: MED/SURG
PROVIDERS: ADMIT Internal Medicine; ATTEND Internal Medicine
DX: R07.89 Other chest pain; I25.10 Atherosclerotic heart disease of native coronary artery without angina pectoris; R11.2 Nausea with vomiting, unspecified; Z87.19 Personal history of other diseases of the digestive system; R10.84 Generalized abdominal pain; R26.89 Other abnormalities of gait and mobility; Z79.899 Other long term (current) drug therapy; R94.4 Abnormal results of kidney function studies; Z98.890 Other specified postprocedural states; E11.65 Type 2 diabetes mellitus with hyperglycemia
CPT/HCPCS: 36415; 74022; 80053; 80061; 81001; 82150; 82550; 82553; 83690; 83735; 84132; 84484; 85025; 93005; 94760; 96367; 96374; 97162; 97167; A4216; C9113; G0378; J1642; J2270; J2405; J2550; J7030

== ENCOUNTER 2018-09-21 12:41 | Inpatient (IN) ==
[2018-09-21] MEDS ORDERED: HumuLIN R SUBCUT PRN (13:21)
--- NOTE | 2018-09-21 13:30 | DR.H&P ---
H&P - History & Physical for Day of: H&P Date: 09/21/18 - Chief Complaint Chief Complaint: Nausea, vomiting, abdominal pain - History of Present Illness History of Present Illness: Patient is a 33 year old female that is being admitted to [facility] secondary to nausea, vomiting, and abdominal pain. Patient states that she was discharged from [facility] 1.5 weeks ago. States that she started having nausea and vomting x2 days ago. States that she has been taking Phenergan and her pain medication without relief. Patient will be admitted for further evaluation. - Past Medical History Past Medical History: Coronary Artery Disease, Diabetes, Hypertension, Renal Disease Additional Medical History: MORBID OBESITY - Past Surgical History Surgical History: Angioplasty/Stents, Cholecystectomy - Family History Family Medical History: Diabetes Mellitus, Hypertension - Social History Does patient currently use any type of tobacco product: No Have you used tobacco products in the last 12 months: No Alcohol Use: None Drug Use: None - Medications Home Medications: Penicillins Allergy (Verified 12/10/17 14:38) ceftazidime [From Fortaz] Adverse Reaction (Verified 12/10/17 14:38) - Review of Systems Constitutional: See HPI Eyes: See HPI ENT: See HPI Respiratory: See HPI Cardiovascular: See HPI Gastrointestinal: See HPI Genitourinary: See HPI Musculoskeletal: See HPI Skin: See HPI Neurological: See HPI - Physical Exam Vital Signs: Blood Pressure [Right Arm] 129/76 Blood Pressure [Left Arm] 131/75 Blood Pressure 131/75 Oriented: Normal Eyes: Normal Ear: Normal Nose: Normal Throat: Normal Respiratory: Clear Throughout Cardiovascular: Normal : Normal Auscultation: Bowel Sounds: Normal Palpation: Normal Tenderness: Normal Skin: Normal Musculoskeletal: Normal Psychiatric: Anxiety Mood Description: Depressed, Anxious Affect: Flat Speech Pattern: Clear - Assessment/Plan (1) Abdominal pain Status: Acute Plan: CT Abdomen (2) Nausea & vomiting Status: Acute Plan: IV Phenergan. CT abdomen. IV hydration - Allergies Allergies/Adverse Reactions: Allergies Allergy/AdvReac Type Severity Reaction Status Date / Time Penicillins Allergy Verified 12/10/17 14:38 ceftazidime [From Fortaz] AdvReac Verified 12/10/17 14:38
[2018-09-21 14:14] LABS: BASOPHILS # (AUTO) 0.1 X10^3/uL (0.0-0.1); BASOPHILS % (AUTO) 0.7 % (0.2-1.0); EOSINOPHILS # (AUTO) 0.3 x10^3/uL (0.0-0.2); EOSINOPHILS % (AUTO) 2.8 % (0.9-2.9); HEMATOCRIT 32.6 % (36.0-47.0); HEMOGLOBIN 10.6 g/dL (12.0-16.0); LYMPHOCYTES # (AUTO) 3.2 X10^3/uL (1.3-2.9); LYMPHOCYTES % (AUTO) 29.1 % (21.0-51.0); MEAN CORPUSCULAR HEMOGLOBIN 28.1 pg (27.0-34.0); MEAN CORPUSCULAR HGB CONC 32.7 g/dL (33.0-35.0); MEAN PLATELET VOLUME 8.3 fL (7.4-11.0); MONOCYTES # (AUTO) 0.7 x10^3/uL (0.3-0.8); MONOCYTES % (AUTO) 6.4 % (0.0-13.0); NEUTROPHILS # (AUTO) 6.7 x10^3/uL (2.2-4.8); PLATELET COUNT 388 X10^3/uL (150.0-450.0); RED BLOOD COUNT 3.79 X10^6/uL (3.5-5.4); WHITE BLOOD COUNT 10.9 X10^3/uL (3.6-10.0)
[2018-09-21 14:34] LABS: ALANINE AMINOTRANSFERASE 22 Units/L (12-78); ALBUMIN 3.8 g/dL (3.4-5.0); ALKALINE PHOSPHATASE 150 Units/L (46-116); ASPARTATE AMINO TRANSFERASE 13 Units/L (15-37); BLOOD UREA NITROGEN 31 mg/dL (7-18); CALCIUM 9.8 mg/dL (8.5-10.1); CHLORIDE 103 mmol/L (98-107); CKMB % 1.9 % (<4); COR NA(FOR HYPERGLY) 142 mmol/L (136-145); CREATINE KINASE 53 Units/L (26-192); CREATINE KINASE MB < 1.0 ng/mL (0-4.0); CREATININE 2.46 mg/dL (0.55-1.02); SODIUM 140 mmol/L (136-145); TROPONIN I < 0.02 ng/mL (0-1.5); eGFR NON BLACK RACES 24 (>60)
[2018-09-21] MEDS: PHENERGAN INJ 25 MG IM PRN ×2 (14:45→20:05)
[2018-09-21] MEDS: NS 1000 ML 1,000 ML IV SCH (15:28)
--- NOTE | 2018-09-21 15:32 | RAD ---
HISTORY: Generalized weakness, nausea and vomiting. Prior history of hypertension and diabetes. Study: Single-view chest Comparison: 06/19/2018. Findings: Right-sided LifePort is seen inserted via subclavian approach with the tip at the cavoatrial junction. The trachea is midline. Heart size is normal. There is still some scarring present in the right lung base. Remainder of lung fowler are clear. No consolidation, CHF, pleural fluid or pneumothorax is seen. Osseous structures are intact. IMPRESSION: Mild residual scarring in the right lung base. No acute cardiopulmonary disease. Reported By:
[2018-09-21] MEDS: DILAUDID INJ IVP PRN ×3 (15:52→23:57)
--- NOTE | 2018-09-21 16:06 | RAD ---
HISTORY: Abdominal pain with nausea vomiting. Study: Single AP view of the abdomen. Comparison: Acute abdominal series dated July 07, 2018. Findings: Evaluation of the abdomen demonstrates a nonspecific/nonobstructive bowel-gas pattern with air and large amounts of stool to the level of the rectum. No obvious free air. No pathological soft tissue mass or calcification can be observed. The bony structures are grossly intact. IMPRESSION: No evidence for acute abdominal pathology identified. Reported By:
[2018-09-21 16:17] VITALS: BMI 30.1
[2018-09-21 19:28] LABS: CKMB % 1.9 % (<4); CREATINE KINASE 52 Units/L (26-192); CREATINE KINASE MB < 1.0 ng/mL (0-4.0); TROPONIN I < 0.02 ng/mL (0-1.5)
[2018-09-21 19:45] LABS: BILIRUBIN,URINE NEGATIVE (NEGATIVE); BLOOD/HEMOGLOBIN,URINE 2+ (NEGATIVE); GLUCOSE, URINE NEGATIVE (NEGATIVE); KETONES,URINE NEGATIVE (NEGATIVE); LEUKOCYTE ESTERASE ,URINE 1+ (NEGATIVE); NITRITES,URINE NEGATIVE (NEGATIVE); PROTEIN,URINE 3+ (NEGATIVE); UROBILINOGEN,URINE NORMAL (NORMAL)
[2018-09-21 19:48] LABS: AMORPHOUS SEDIMENT,UR 1+ /HPF (NEGATIVE); APPEARANCE,URINE SLIGHTLY HAZY (CLEAR); BACTERIA,URINE TRACE /HPF (NEGATIVE); COLOR,URINE YELLOW (YELLOW); RBC,URINE 0-2 /HPF (NONE SEEN); SQUAMOUS EPITHELIAL CELL,UR MANY /HPF (NEGATIVE)
[2018-09-21] MEDS: SNACK - Diabetic Appropriate PO SCH (20:04)
[2018-09-21] MEDS ORDERED: AMBIEN PO PRN (20:35)
[2018-09-21] MEDS ORDERED: ZESTRIL TAB 20 MG ONE (21:00)
[2018-09-21] MEDS: COREG TAB 3.125 MG PO SCH (21:04)
[2018-09-21] MEDS: ZESTRIL TAB 20 MG PO SCH (21:04)
[2018-09-22 02:25] LABS: CKMB % 2.3 % (<4); CREATINE KINASE 44 Units/L (26-192); CREATINE KINASE MB < 1.0 ng/mL (0-4.0); TROPONIN I < 0.02 ng/mL (0-1.5)
[2018-09-22] MEDS: DILAUDID INJ IVP PRN ×4 (04:00→20:05)
[2018-09-22] MEDS: NS 1000 ML 1,000 ML IV SCH ×3 (04:25→22:12)
[2018-09-22 05:43] LABS: BASOPHILS % (AUTO) 0.3 % (0.2-1.0); EOSINOPHILS # (AUTO) 0.1 x10^3/uL (0.0-0.2); EOSINOPHILS % (AUTO) 1.4 % (0.9-2.9); HEMATOCRIT 26.8 % (36.0-47.0); HEMOGLOBIN 8.8 g/dL (12.0-16.0); LYMPHOCYTES # (AUTO) 3.4 X10^3/uL (1.3-2.9); LYMPHOCYTES % (AUTO) 32.5 % (21.0-51.0); MEAN CORPUSCULAR HEMOGLOBIN 28.4 pg (27.0-34.0); MEAN CORPUSCULAR VOLUME 86.1 fL (80.0-100.0); MEAN PLATELET VOLUME 8.6 fL (7.4-11.0); MONOCYTES # (AUTO) 0.9 x10^3/uL (0.3-0.8); MONOCYTES % (AUTO) 8.2 % (0.0-13.0); NEUTROPHILS # (AUTO) 6.1 x10^3/uL (2.2-4.8); NEUTROPHILS % (AUTO) 57.6 % (42.0-75.0); PLATELET COUNT 326 X10^3/uL (150.0-450.0); RED BLOOD COUNT 3.11 X10^6/uL (3.5-5.4); WHITE BLOOD COUNT 10.6 X10^3/uL (3.6-10.0)
[2018-09-22 06:03] LABS: ALANINE AMINOTRANSFERASE 17 Units/L (12-78); ALKALINE PHOSPHATASE 121 Units/L (46-116); ASPARTATE AMINO TRANSFERASE 10 Units/L (15-37); BLOOD UREA NITROGEN 24 mg/dL (7-18); CALCIUM 9.1 mg/dL (8.5-10.1); CARBON DIOXIDE 26.2 mmol/L (21-32); CHLORIDE 105 mmol/L (98-107); COR CA(FOR HYPOALB) 9.9 mg/dL (8.5-10.1); CREATININE 1.56 mg/dL (0.55-1.02); SODIUM 141 mmol/L (136-145); TOTAL PROTEIN 7.3 g/dL (6.4-8.2); eGFR NON BLACK RACES 40 (>60)
[2018-09-22] MEDS ORDERED: ZESTRIL TAB 20 MG ONE (07:59)
[2018-09-22] MEDS: COREG TAB 3.125 MG PO SCH ×2 (08:30→20:05)
[2018-09-22] MEDS: ZESTRIL TAB 20 MG PO SCH (08:31)
[2018-09-22 09:59] LABS: AMYLASE 62 Units/L (25-115); LIPASE 105 Units/L (73-393)
--- NOTE | 2018-09-22 14:51 | RAD ---
THORACIC SPINE RADIOGRAPHS CLINICAL HISTORY: 33-year-old female status post fall on Thursday with thoracic spine pain. COMPARISON: None. FINDINGS: Right chest subclavian approach chemo port with distal tip overlying the right atrium. 2 views of the thoracic spine were obtained. Cervicothoracic junction best visualized on frontal radiographs. Considering the limitations, vertebral body height and alignment are maintained. IMPRESSION: No compression deformity or malalignment on screening thoracic spine radiographs. Reported By:
[2018-09-22] MEDS: SNACK - Diabetic Appropriate PO SCH (20:05)
[2018-09-23] MEDS: DILAUDID INJ IVP PRN ×3 (00:05→20:40)
[2018-09-23] MEDS: NS 1000 ML 1,000 ML IV SCH ×3 (05:47→18:08)
[2018-09-23 05:51] LABS: BASOPHILS % (AUTO) 0.3 % (0.2-1.0); EOSINOPHILS # (AUTO) 0.2 x10^3/uL (0.0-0.2); HEMATOCRIT 25.9 % (36.0-47.0); HEMOGLOBIN 8.4 g/dL (12.0-16.0); LYMPHOCYTES # (AUTO) 3.2 X10^3/uL (1.3-2.9); LYMPHOCYTES % (AUTO) 31.9 % (21.0-51.0); MEAN CORPUSCULAR HEMOGLOBIN 28.1 pg (27.0-34.0); MEAN CORPUSCULAR HGB CONC 32.2 g/dL (33.0-35.0); MEAN CORPUSCULAR VOLUME 87.1 fL (80.0-100.0); MEAN PLATELET VOLUME 8.8 fL (7.4-11.0); MONOCYTES # (AUTO) 0.7 x10^3/uL (0.3-0.8); MONOCYTES % (AUTO) 6.6 % (0.0-13.0); NEUTROPHILS # (AUTO) 5.9 x10^3/uL (2.2-4.8); NEUTROPHILS % (AUTO) 59.2 % (42.0-75.0); PLATELET COUNT 309 X10^3/uL (150.0-450.0); RED BLOOD COUNT 2.98 X10^6/uL (3.5-5.4); RED CELL DISTRIBUTION WIDTH 16.7 % (11.6-16.5); WHITE BLOOD COUNT 9.9 X10^3/uL (3.6-10.0)
[2018-09-23 06:09] LABS: ALBUMIN 2.9 g/dL (3.4-5.0); CALCIUM 8.7 mg/dL (8.5-10.1); CARBON DIOXIDE 24.6 mmol/L (21-32); COR CA(FOR HYPOALB) 9.6 mg/dL (8.5-10.1); CREATININE 1.36 mg/dL (0.55-1.02); TOTAL PROTEIN 7.1 g/dL (6.4-8.2)
[2018-09-23] MEDS ORDERED: ZESTRIL TAB 20 MG ONE ×2 (07:27→20:08)
[2018-09-23] MEDS: ZESTRIL TAB 20 MG PO SCH (08:27)
[2018-09-23] MEDS: COREG TAB 3.125 MG PO SCH ×3 (08:27→20:40)
[2018-09-23] MEDS ORDERED: DILAUDID INJ IVP ONE (09:48)
[2018-09-23] MEDS ORDERED: ZOFRAN INJ 4 MG VIAL IVP PRN (09:49)
[2018-09-23] MEDS: REGLAN INJ 10 MG VIAL IVP SCH ×4 (11:16→20:40)
[2018-09-23] MEDS ORDERED: AMBIEN PO PRN (17:49)
[2018-09-23] MEDS ORDERED: PATIENT'S HOME MEDICATION (Oxycodone-Acetaminophen [Percocet] 1 TAB) PO PRN (17:49)
[2018-09-23] MEDS ORDERED: ZESTRIL TAB 40 MG PO SCH (18:00)
[2018-09-23] MEDS: PLAVIX PO SCH (18:45)
[2018-09-23] MEDS: NORVASC TAB 10 MG PO SCH (18:45)
[2018-09-23] MEDS: SNACK - Diabetic Appropriate PO SCH (20:39)
[2018-09-23] MEDS: BENTYL CAP 10 MG PO SCH (20:39)
[2018-09-23] MEDS: ZANAFLEX PO SCH (20:40)
[2018-09-23] MEDS: COSOPT OPTH RIGHTEYE SCH (20:51)
[2018-09-23] MEDS ORDERED: LIPITOR TAB 40 MG PO SCH (21:00)
[2018-09-23] MEDS ORDERED: XALATAN OP SCH (21:00)
[2018-09-24] MEDS: DILAUDID INJ IVP PRN ×3 (01:00→09:05)
[2018-09-24 06:00] LABS: BASOPHILS # (AUTO) 0.1 X10^3/uL (0.0-0.1); BASOPHILS % (AUTO) 0.7 % (0.2-1.0); EOSINOPHILS # (AUTO) 0.2 x10^3/uL (0.0-0.2); EOSINOPHILS % (AUTO) 2.1 % (0.9-2.9); HEMATOCRIT 24.3 % (36.0-47.0); HEMOGLOBIN 7.9 g/dL (12.0-16.0); LYMPHOCYTES # (AUTO) 2.7 X10^3/uL (1.3-2.9); LYMPHOCYTES % (AUTO) 30.9 % (21.0-51.0); MEAN CORPUSCULAR HEMOGLOBIN 28.3 pg (27.0-34.0); MEAN CORPUSCULAR HGB CONC 32.6 g/dL (33.0-35.0); MEAN CORPUSCULAR VOLUME 86.8 fL (80.0-100.0); MEAN PLATELET VOLUME 8.6 fL (7.4-11.0); MONOCYTES # (AUTO) 0.7 x10^3/uL (0.3-0.8); MONOCYTES % (AUTO) 7.6 % (0.0-13.0); NEUTROPHILS # (AUTO) 5.2 x10^3/uL (2.2-4.8); NEUTROPHILS % (AUTO) 58.7 % (42.0-75.0); PLATELET COUNT 264 X10^3/uL (150.0-450.0); RED CELL DISTRIBUTION WIDTH 16.8 % (11.6-16.5); WHITE BLOOD COUNT 8.8 X10^3/uL (3.6-10.0)
[2018-09-24 06:10] LABS: ALBUMIN 2.7 g/dL (3.4-5.0); CALCIUM 8.8 mg/dL (8.5-10.1); CARBON DIOXIDE 24.8 mmol/L (21-32); COR CA(FOR HYPOALB) 9.8 mg/dL (8.5-10.1); CREATININE 1.46 mg/dL (0.55-1.02); TOTAL PROTEIN 6.8 g/dL (6.4-8.2)
[2018-09-24] MEDS: BENTYL CAP 10 MG PO SCH ×2 (06:12→14:39)
[2018-09-24] MEDS ORDERED: ZESTRIL TAB 20 MG ONE (08:22)
[2018-09-24] MEDS: ZESTRIL TAB 20 MG PO SCH (09:07)
[2018-09-24] MEDS: ZANAFLEX PO SCH (09:08)
[2018-09-24] MEDS: NORVASC TAB 10 MG PO SCH (09:08)
[2018-09-24] MEDS: COREG TAB 3.125 MG PO SCH (09:08)
[2018-09-24] MEDS: PLAVIX PO SCH (09:08)
[2018-09-24] MEDS: REGLAN INJ 10 MG VIAL IVP SCH ×2 (09:08→14:38)
[2018-09-24] MEDS: COSOPT OPTH RIGHTEYE SCH (09:13)
[2018-09-24 13:08] VITALS: BP 91/58
== END 2018-09-24 17:15 | disposition home or self-care (01) | DRG 74 ==
LOC: MED/SURG 13:35
PROVIDERS: ADMIT Internal Medicine; ATTEND Internal Medicine
DX: R10.84 Generalized abdominal pain; I10 Essential (primary) hypertension; R26.89 Other abnormalities of gait and mobility; R11.2 Nausea with vomiting, unspecified; E11.319 Type 2 diabetes mellitus with unspecified diabetic retinopathy without macular edema; Z79.01 Long term (current) use of anticoagulants; I25.10 Atherosclerotic heart disease of native coronary artery without angina pectoris; E11.43 Type 2 diabetes mellitus with diabetic autonomic (poly)neuropathy; K31.84 Gastroparesis
CPT/HCPCS: 36415; 71010; 71045; 72072; 74000; 74018; 80053; 81001; 82150; 82550; 82553; 83690; 84484; 85025; 93005; 94760; 97110; 97162; 97166; A4216; A4222; J1170; J1642; J2405; J2550; J2765; J7030

== ENCOUNTER 2018-11-09 10:49 | Inpatient (IN) ==
[2018-11-09 11:38] LABS: BASOPHILS # (AUTO) 0.1 X10^3/uL (0.0-0.1); BASOPHILS % (AUTO) 1.3 % (0.2-1.0); EOSINOPHILS # (AUTO) 0.1 x10^3/uL (0.0-0.2); HEMATOCRIT 30.3 % (36.0-47.0); LYMPHOCYTES # (AUTO) 1.8 X10^3/uL (1.3-2.9); LYMPHOCYTES % (AUTO) 15.7 % (21.0-51.0); MEAN CORPUSCULAR HEMOGLOBIN 27.9 pg (27.0-34.0); MEAN CORPUSCULAR HGB CONC 32.9 g/dL (33.0-35.0); MEAN CORPUSCULAR VOLUME 84.6 fL (80.0-100.0); MEAN PLATELET VOLUME 8.4 fL (7.4-11.0); MONOCYTES # (AUTO) 0.6 x10^3/uL (0.3-0.8); NEUTROPHILS # (AUTO) 8.9 x10^3/uL (2.2-4.8); PLATELET COUNT 343 X10^3/uL (150.0-450.0); RED BLOOD COUNT 3.59 X10^6/uL (3.5-5.4); RED CELL DISTRIBUTION WIDTH 17.1 % (11.6-16.5); WHITE BLOOD COUNT 11.6 X10^3/uL (3.6-10.0)
[2018-11-09 11:46] LABS: AMYLASE 65 Units/L (25-115); LIPASE 173 Units/L (73-393)
[2018-11-09] MEDS: DILAUDID INJ IVP PRN ×3 (11:49→18:47)
[2018-11-09] MEDS: REGLAN INJ 10 MG VIAL IVP PRN ×2 (11:51→18:48)
[2018-11-09] MEDS: NS 1000 ML 1,000 ML IV PRN ×2 (11:51→20:35)
[2018-11-09] MEDS: PROTONIX INJ 40 MG VIAL IVP SCH ×2 (11:51→20:42)
[2018-11-09 11:52] LABS: ALANINE AMINOTRANSFERASE 41 Units/L (12-78); ALBUMIN 3.6 g/dL (3.4-5.0); ALKALINE PHOSPHATASE 143 Units/L (46-116); ASPARTATE AMINO TRANSFERASE 13 Units/L (15-37); BLOOD UREA NITROGEN 20 mg/dL (7-18); CALCIUM 10.6 mg/dL (8.5-10.1); CARBON DIOXIDE 21.4 mmol/L (21-32); CHLORIDE 105 mmol/L (98-107); COR NA(FOR HYPERGLY) 143 mmol/L (136-145); CREATININE 1.76 mg/dL (0.55-1.02); SODIUM 140 mmol/L (136-145); TOTAL PROTEIN 8.6 g/dL (6.4-8.2); eGFR NON BLACK RACES 35 (>60)
[2018-11-09] MEDS ORDERED: HumuLIN R SC PRN (12:17)
--- NOTE | 2018-11-09 13:46 | RAD ---
History: Nausea and vomiting and abdominal pain Study: HISTORY: Study: Acute abdominal series Comparison: Findings: The trachea is midline. The cardiac silhouette is unremarkable. The lungs are clear without focal infiltrate or effusion. The bony thorax is unremarkable. Flat plate and upright evaluation of the abdomen demonstrates a normal bowel gas pattern. No pathological soft tissue mass or calcification can be observed. The bony structures are grossly intact. IMPRESSION: 1. No acute cardiopulmonary disease. 2. No evidence for acute abdominal pathology identified. Findings: The lungs are clear and the heart and mediastinum are unremarkable. There is a right-sided Port-A-Cath in place. There is prominent fecal material in the colon. There is no gaseous distention of stomach or small bowel. No significant bony abnormality is demonstrated. There are cholecystectomy clips. Impression: Questionable constipation, otherwise negative. Reported By:
[2018-11-09] MEDS ORDERED: NORMODYNE INJ 20 MG VIAL IV PRN ×2 (14:11→14:13)
[2018-11-09 14:47] LABS: BILIRUBIN,URINE NEGATIVE (NEGATIVE); BLOOD/HEMOGLOBIN,URINE 3+ (NEGATIVE); GLUCOSE, URINE 2+ (NEGATIVE); KETONES,URINE NEGATIVE (NEGATIVE); LEUKOCYTE ESTERASE ,URINE 2+ (NEGATIVE); NITRITES,URINE NEGATIVE (NEGATIVE); PH,URINE 6.5 (5.0 - 8.0); PROTEIN,URINE 3+ (NEGATIVE); UROBILINOGEN,URINE NORMAL (NORMAL)
[2018-11-09] MEDS ORDERED: ZOFRAN INJ 4 MG VIAL ONE (14:47)
[2018-11-09] MEDS: ZOFRAN INJ 4 MG VIAL IVP PRN ×3 (14:50→22:38)
[2018-11-09 14:53] LABS: APPEARANCE,URINE HAZY (CLEAR); COLOR,URINE PALE YELLOW (YELLOW)
[2018-11-09 14:54] LABS: AMORPHOUS SEDIMENT,UR 1+ /HPF (NEGATIVE); BACTERIA,URINE TRACE /HPF (NEGATIVE); MUCUS,URINE FEW /HPF (NEGATIVE); SQUAMOUS EPITHELIAL CELL,UR MANY /HPF (NEGATIVE); YEAST,URINE RARE /HPF (NEGATIVE)
[2018-11-09 15:54] VITALS: BMI 30.1
[2018-11-09] MEDS ORDERED: PHARMACY CONSULT - DOSE _____ XX SCH (16:00)
[2018-11-09] MEDS: COLACE CAP 100 MG PO SCH (20:27)
[2018-11-09] MEDS: MILK OF MAGNESIA PO SCH (20:28)
[2018-11-09] MEDS: LOVENOX INJ 40 MG SYR SC SCH ×2 (20:28→20:34)
--- NOTE | 2018-11-09 20:39 | DR.H&P ---
H&P - History & Physical for Day of: H&P Date: 11/09/18 - Chief Complaint Chief Complaint: nausea, vomiting, abdominal pain - History of Present Illness History of Present Illness: Patient is a 33 year female that is a direct admit from Dr. Auguste's office secondary to nausea, vomiting and abdominal pain. Patient was recently discharged from [facility] where she received treatment for above symptoms. Patient reports nausea and vomiting x2 days. Reports ongoing abdominal pain despite outpatient medications. Patient will subsequently be admitted for further treatment. - Past Medical History Past Medical History: Coronary Artery Disease, Hypertension, Diabetes, Renal Disease Additional Medical History: MORBID OBESITY - Past Surgical History Surgical History: Cholecystectomy - Family History Family Medical History: Diabetes Mellitus, Hypertension - Social History Does patient currently use any type of tobacco product: No Have you used tobacco products in the last 12 months: No Type of Tobacco Use: None Does any household member use tobacco: No Alcohol Use: None Drug Use: Prescription Drugs - Medications Home Medications: Penicillins Allergy (Verified 12/10/17 14:38) ceftazidime [From Fortaz] Adverse Reaction (Verified 12/10/17 14:38) - Review of Systems Constitutional: See HPI Eyes: See HPI ENT: See HPI Respiratory: See HPI Cardiovascular: See HPI Gastrointestinal: See HPI, Nausea, Vomiting, Abdominal Pain Musculoskeletal: See HPI Skin: See HPI Neurological: See HPI - Physical Exam Vital Signs: Temperature 98.2 F Pulse Rate [Left Radial] 106 Pulse Rate 96 Respiratory Rate 20 Blood Pressure [Right Arm] 131/67 Blood Pressure [Left Arm] 209/97 Blood Pressure 103/55 O2 Sat by Pulse Oximetry 97 Oriented: Normal Eyes: Normal Ear: Normal Nose: Normal Throat: Normal Respiratory: Clear Throughout Cardiovascular: Normal : Normal Auscultation: Bowel Sounds: Normal Palpation: Normal Tenderness: Moderate Skin: Normal Musculoskeletal: Normal Psychiatric: Anxiety Mood Description: Anxious Affect: Anxious Speech Pattern: Clear - Assessment/Plan (1) Abdominal pain Qualifiers: Abdominal location: generalized Qualified Code(s): R10.84 - Generalized abdominal pain Status: Acute Plan: CT abdomen (2) Nausea & vomiting Status: Acute Plan: IV anti-emetics. IV hydration - Allergies Allergies/Adverse Reactions: Allergies Allergy/AdvReac Type Severity Reaction Status Date / Time Penicillins Allergy Verified 12/10/17 14:38 ceftazidime [From Fortaz] AdvReac Verified 12/10/17 14:38
[2018-11-10] MEDS: REGLAN INJ 10 MG VIAL IVP PRN ×3 (00:30→12:53)
[2018-11-10] MEDS: DILAUDID INJ IVP PRN ×6 (00:57→21:46)
[2018-11-10] MEDS: ZOFRAN INJ 4 MG VIAL IVP PRN ×2 (02:26→06:08)
[2018-11-10] MEDS ORDERED: DILAUDID INJ IVP PRN (03:00)
[2018-11-10] MEDS ORDERED: MAGNESIUM SULFATE 1 GRAM/100 mL PREMIX 1 GM/100 ML BAG IV PRN (05:32)
[2018-11-10] MEDS ORDERED: POTASSIUM CHLORIDE LIQ 20 MEQ UDC PO PRN (05:32)
[2018-11-10] MEDS ORDERED: KLOR-CON PO PRN (05:32)
[2018-11-10] MEDS ORDERED: MICRO K EXTEN CAP 10 MEQ PO PRN (05:32)
[2018-11-10] MEDS ORDERED: K-DUR TAB 20 MEQ PO PRN (05:32)
[2018-11-10] MEDS ORDERED: POTASSIUM CHL 40 MEQ/NS 0.45% 500 ML IV PRN (05:32)
[2018-11-10] MEDS ORDERED: POTASSIUM CHL 60 MEQ/NS 0.45% 500 ML IV PRN (05:32)
[2018-11-10] MEDS ORDERED: K-RIDER 10 MEQ/NS 100 ML 10 MEQ/100 ML BAG IV PRN (05:32)
[2018-11-10 07:01] LABS: BASOPHILS # (AUTO) 0.1 X10^3/uL (0.0-0.1); EOSINOPHILS # (AUTO) 0.1 x10^3/uL (0.0-0.2); EOSINOPHILS % (AUTO) 0.9 % (0.9-2.9); HEMATOCRIT 30.5 % (36.0-47.0); HEMOGLOBIN 10.3 g/dL (12.0-16.0); LYMPHOCYTES # (AUTO) 2.5 X10^3/uL (1.3-2.9); MEAN CORPUSCULAR HEMOGLOBIN 28.5 pg (27.0-34.0); MEAN CORPUSCULAR HGB CONC 33.6 g/dL (33.0-35.0); MEAN CORPUSCULAR VOLUME 84.8 fL (80.0-100.0); MEAN PLATELET VOLUME 8.1 fL (7.4-11.0); NEUTROPHILS # (AUTO) 5.9 x10^3/uL (2.2-4.8); NEUTROPHILS % (AUTO) 62.1 % (42.0-75.0); PLATELET COUNT 307 X10^3/uL (150.0-450.0); RED CELL DISTRIBUTION WIDTH 17.3 % (11.6-16.5); WHITE BLOOD COUNT 9.6 X10^3/uL (3.6-10.0)
[2018-11-10 07:18] LABS: ALANINE AMINOTRANSFERASE 39 Units/L (12-78); ALBUMIN 3.4 g/dL (3.4-5.0); ALKALINE PHOSPHATASE 135 Units/L (46-116); AMYLASE 74 Units/L (25-115); ASPARTATE AMINO TRANSFERASE 15 Units/L (15-37); BLOOD UREA NITROGEN 21 mg/dL (7-18); CALCIUM 9.8 mg/dL (8.5-10.1); CARBON DIOXIDE 29.3 mmol/L (21-32); CHLORIDE 107 mmol/L (98-107); COR NA(FOR HYPERGLY) 145 mmol/L (136-145); CREATININE 1.89 mg/dL (0.55-1.02); LIPASE 161 Units/L (73-393); SODIUM 144 mmol/L (136-145); TOTAL PROTEIN 8.5 g/dL (6.4-8.2); eGFR NON BLACK RACES 32 (>60)
[2018-11-10] MEDS: PROTONIX INJ 40 MG VIAL IVP SCH ×2 (08:54→20:40)
[2018-11-10] MEDS: MILK OF MAGNESIA PO SCH ×2 (09:10→20:40)
[2018-11-10] MEDS ORDERED: PHARMACY CONSULT - VANCOMYCIN XX SCH (14:00)
[2018-11-10] MEDS: CHRONULAC PO SCH (15:48)
[2018-11-10] MEDS: VANCOMYCIN HCL 500 MG VIAL 500 MG, VANCOMYCIN HCL 1 GM VIAL 1 G in D5W 250 ML IV 250 ML IV SCH (15:48)
[2018-11-10] MEDS ORDERED: MICRO K EXTEN CAP 10 MEQ PO NR (16:00)
--- NOTE | 2018-11-10 16:17 | RAD ---
AP abdomen Indication: Abdominal pain, nausea and vomiting Comparison: 11/09/2018 Findings: Bowel gas pattern is normal. No suspicious calcifications or gross free air. Advanced L4-5 spondylosis noted. Impression: No acute abdominal process. Reported By:
[2018-11-10] MEDS ORDERED: BENADRYL INJ 50 MG VIAL IVP ONE (18:08)
[2018-11-10] MEDS: NS 1000 ML 1,000 ML IV PRN (18:22)
[2018-11-10] MEDS: COLACE CAP 100 MG PO SCH (20:38)
[2018-11-10] MEDS: LOVENOX INJ 40 MG SYR SC SCH (20:39)
[2018-11-11] MEDS: DILAUDID INJ IVP PRN ×6 (01:49→23:55)
[2018-11-11 05:29] LABS: BASOPHILS % (AUTO) 0.4 % (0.2-1.0); EOSINOPHILS # (AUTO) 0.4 x10^3/uL (0.0-0.2); EOSINOPHILS % (AUTO) 3.8 % (0.9-2.9); HEMATOCRIT 24.9 % (36.0-47.0); HEMOGLOBIN 8.2 g/dL (12.0-16.0); LYMPHOCYTES # (AUTO) 2.8 X10^3/uL (1.3-2.9); LYMPHOCYTES % (AUTO) 30.5 % (21.0-51.0); MEAN CORPUSCULAR HEMOGLOBIN 28.5 pg (27.0-34.0); MEAN CORPUSCULAR HGB CONC 32.8 g/dL (33.0-35.0); MEAN CORPUSCULAR VOLUME 86.9 fL (80.0-100.0); MEAN PLATELET VOLUME 8.9 fL (7.4-11.0); MONOCYTES # (AUTO) 0.8 x10^3/uL (0.3-0.8); MONOCYTES % (AUTO) 8.1 % (0.0-13.0); NEUTROPHILS # (AUTO) 5.3 x10^3/uL (2.2-4.8); NEUTROPHILS % (AUTO) 57.2 % (42.0-75.0); PLATELET COUNT 234 X10^3/uL (150.0-450.0); RED BLOOD COUNT 2.87 X10^6/uL (3.5-5.4); RED CELL DISTRIBUTION WIDTH 16.8 % (11.6-16.5); WHITE BLOOD COUNT 9.3 X10^3/uL (3.6-10.0)
[2018-11-11 05:43] LABS: ALANINE AMINOTRANSFERASE 32 Units/L (12-78); ALBUMIN 2.8 g/dL (3.4-5.0); ALKALINE PHOSPHATASE 112 Units/L (46-116); ASPARTATE AMINO TRANSFERASE 17 Units/L (15-37); BLOOD UREA NITROGEN 22 mg/dL (7-18); CALCIUM 8.9 mg/dL (8.5-10.1); CARBON DIOXIDE 26.5 mmol/L (21-32); CHLORIDE 105 mmol/L (98-107); COR CA(FOR HYPOALB) 9.9 mg/dL (8.5-10.1); CREATININE 1.72 mg/dL (0.55-1.02); SODIUM 140 mmol/L (136-145); TOTAL PROTEIN 6.9 g/dL (6.4-8.2); eGFR NON BLACK RACES 36 (>60)
[2018-11-11] MEDS: MILK OF MAGNESIA PO SCH ×2 (08:12→21:02)
[2018-11-11] MEDS: PROTONIX INJ 40 MG VIAL IVP SCH ×2 (08:12→21:02)
[2018-11-11] MEDS: CHRONULAC PO SCH (08:12)
[2018-11-11] MEDS ORDERED: BENADRYL INJ 50 MG VIAL IVP NR (09:00)
[2018-11-11] MEDS: VANCOMYCIN HCL 500 MG VIAL 500 MG, VANCOMYCIN HCL 1 GM VIAL 1 G in D5W 250 ML IV 250 ML IV SCH (15:13)
--- NOTE | 2018-11-11 16:33 | MRI ---
MRI SPINE LUMBAR WITHOUT AND WITH CONTRAST CLINICAL HISTORY: 33-year-old female with back pain and prior imaging showing osteomyelitis. COMPARISON: None provided. Technique: Multiplanar, multisequence MRI images of the lumbar spine were obtained prior to and following the uneventful intravenous administration of 20 mL MultiHance. FINDINGS: The most caudad, fully-formed intervertebral disc will be labeled L5-S1 for the purpose of this dictation. Straightening of the lumbar lordosis as imaged. Degenerative retrolisthesis L4-L5. Significant loss of disc space with endplate erosions with approximate 25% vertebral body height loss L4 and L5. T2 STIR hyperintensity surrounds the collapsed disc with postcontrast enhancement of the same. Mild enhancement of the vertebral body endplates at this level with no marrow edema. Significant signal loss on all sequences surrounds inflamed enhancing disc. Phlegmon with trace fluid extends into the prevertebral soft tissues as well as the ventral epidural space with minimal canal narrowing. Resultant bilateral severe foraminal and subarticular recess stenosis. Remaining vertebral body heights and marrow signal are preserved. Remaining disc height signal are preserved. Cord signal is normal. The conus medullaris is normal in signal characteristics and morphology and terminates at the L1 level. T11-T12: Imaged in the sagittal plane only without central canal or foraminal stenosis. T12-L1: No central canal or foraminal stenosis. L1-L2: Small symmetric disc bulge with mild facet arthropathy without central canal or foraminal stenosis. L2-L3: Large symmetric disc bulge with severe facet arthropathy. Canal measures 10.8 mm with mild bilateral subarticular recess and foraminal stenosis. L3-L4: Large symmetric disc bulge with severe facet arthropathy and thickened flavum. Canal measures 9.4 mm. Moderate to severe bilateral subarticular recess and moderate bilateral foraminal stenosis with subtle flattening of the ventral dorsal aspects of the exiting L3 nerve roots. L4-L5: Disc collapse with enhancing inflammation and ventral epidural phlegmon as described above with canal measuring 9.2 mm and resultant severe bilateral foraminal and subarticular recess stenosis with compressive engagement of the exiting L4 and transiting L5 nerve roots. L5-S1: Large asymmetric disc bulge with a left foraminal component with severe facet arthropathy. Mild prominence ventral epidural fat. Canal measures 8.3 mm with moderate bilateral foraminal and subarticular recess stenosis. There is no evidence of abnormal enhancement within the lumbar spine. Paraspinous soft tissues are unremarkable. IMPRESSION: Outside imaging not available for comparison. 1. Findings consistent with discitis L4-L5 without significant marrow edema to suggest vertebral osteomyelitis at this time with small component of ventral epidural phlegmon with resultant central canal and foraminal stenoses as described above. Correlate with CRP and ESR, consider percutaneous biopsy for definitive tissue diagnosis. 2. Multilevel disc degeneration and spondyloarthropathy without significant central canal or foraminal stenosis otherwise. Reported By:
--- NOTE | 2018-11-11 18:22 | PCM.PROG ---
Progress Note - Progress Note for Day of Date of Exam: 11/11/18 - Subjective Subjective: 33 BF ADMITTED ON 11/[address] OSVALDO PALOMINO OFFICE WITH CO N/V ABDOMINAL PAIN. PT WAS STARTED ON IV VACNOMYCIN FOR OSTEOMYLETIS OF THE LUMBAR SPINE. PT HAD MRI LUMBAR SPINE ORDERED FOR THIS AM. PT IS ON PAIN CONTROL. DISCUSSED POSSIBLE NEED FOR TRANSFER FOR NEUROSURGEON EVALUATION. PT STATES IMPROVING ABDOMINA PAIN, STARTED ON CLEAR LIQUID DIET. DECREASED PAIN MEDICATION TO Q 6HRS. - Past Medical Family Social History Past Med/Fam/Surg Hx: No changes since H&P Allergies: Allergies Penicillins Allergy (Verified 12/10/17 14:38) ceftazidime [From Fortaz] Adverse Reaction (Verified 12/10/17 14:38) - Review of Systems ROS: No change since H&P - Vital Signs and I&O's Vital Signs: Temperature 98.6 F Pulse Rate [Right Brachial] 92 Pulse Rate [Left Radial] 76 Pulse Rate 87 Respiratory Rate 18 Blood Pressure [Right Arm] 145/83 Blood Pressure [Left Arm] 209/97 Blood Pressure 144/78 O2 Sat by Pulse Oximetry 96 Intake and Output: Intake & Output 11/09/18 11/10/18 11/11/18 11/12/18 11:59 11:59 11:59 11:59 Intake Total 1330 / 1330 1310 / 1310 0 / 0 Output Total 2700 / 2700 1050 / 1050 400 / 400 Balance -1370 / -1370 260 / 260 -400 / -400 - Physical Exam Oriented: Normal Eyes: Normal Ear: Normal Nose: Normal Throat: Normal Respiratory: Diminished Cardiovascular: Normal : Normal Auscultation: Bowel Sounds: Normal Tenderness: Moderate Skin: Normal Musculoskeletal: Normal, Back:Thoracic, Back:Lumbar, Tender, Deformity Psychiatric: Anxiety Mood Description: Anxious Affect: Anxious Speech Pattern: Clear, Appropriate - Laboratory and Diagnostics Result Diagrams: 11/11/18 04:15 11/11/18 04:15 Labs: 11/09/18 14:30 Urine,Catheterized Urine Culture - Final Laboratory WBC 9.3 X10^3/uL (3.6-10.0) 11/11/18 04:15 RBC 2.87 X10^6/uL (3.5-5.4) L 11/11/18 04:15 Hgb 8.2 g/dL (12.0-16.0) L D 11/11/18 04:15 Hct 24.9 % (36.0-47.0) L 11/11/18 04:15 MCV 86.9 fL (80.0-100.0) 11/11/18 04:15 MCH 28.5 pg (27.0-34.0) 11/11/18 04:15 MCHC 32.8 g/dL (33.0-35.0) L 11/11/18 04:15 RDW 16.8 % (11.6-16.5) H 11/11/18 04:15 Plt Count 234 X10^3/uL (150.0-450.0) 11/11/18 04:15 MPV 8.9 fL (7.4-11.0) 11/11/18 04:15 Neut % (Auto) 57.2 % (42.0-75.0) 11/11/18 04:15 Lymph % (Auto) 30.5 % (21.0-51.0) 11/11/18 04:15 [place] % (Auto) 8.1 % (0.0-13.0) 11/11/18 04:15 Eos % (Auto) 3.8 % (0.9-2.9) H 11/11/18 04:15 Baso % (Auto) 0.4 % (0.2-1.0) 11/11/18 04:15 Neut # (Auto) 5.3 x10^3/uL (2.2-4.8) H 11/11/18 04:15 Lymph # (Auto) 2.8 X10^3/uL (1.3-2.9) 11/11/18 04:15 [place] # (Auto) 0.8 x10^3/uL (0.3-0.8) 11/11/18 04:15 Eos # (Auto) 0.4 x10^3/uL (0.0-0.2) H 11/11/18 04:15 Baso # (Auto) 0.0 X10^3/uL (0.0-0.1) 11/11/18 04:15 Absolute Nucleated RBC 0.0 /100WBC 11/11/18 04:15 ESR 78 MM/HOUR (0-20) H 11/10/18 13:21 Sodium 140 mmol/L (136-145) 11/11/18 04:15 Corrected Sodium TNP 11/11/18 04:15 Potassium 3.7 mmol/L (3.5-5.1) 11/11/18 04:15 Chloride 105 mmol/L (98-107) 11/11/18 04:15 Carbon Dioxide 26.5 mmol/L (21-32) 11/11/18 04:15 BUN 22 mg/dL (7-18) H 11/11/18 04:15 Creatinine 1.72 mg/dL (0.55-1.02) H 11/11/18 04:15 Est GFR (MDRD) Af Amer 44 (>60) L 11/11/18 04:15 Est GFR (MDRD) Non-Af 36 (>60) L 11/11/18 04:15 Glucose 79 mg/dL (65-99) 11/11/18 04:15 POC Glucose (mg/dL) 89 mg/dL (65-99) 11/11/18 16:55 Calcium 8.9 mg/dL (8.5-10.1) 11/11/18 04:15 Corrected Calcium 9.9 mg/dL (8.5-10.1) 11/11/18 04:15 Magnesium 2.0 mg/dL (1.7-2.9) 11/10/18 06:50 Total Bilirubin 0.30 mg/dL (0.2-1.0) 11/11/18 04:15 AST 17 Units/L (15-37) 11/11/18 04:15 ALT 32 Units/L (12-78) 11/11/18 04:15 Alkaline Phosphatase 112 Units/L (46-116) 11/11/18 04:15 C-Reactive Protein 1.50 mg/L (0-3.0) 11/10/18 13:21 C-React Prot High Sens Cancelled 11/10/18 13:21 Total Protein 6.9 g/dL (6.4-8.2) 11/11/18 04:15 Albumin 2.8 g/dL (3.4-5.0) L 11/11/18 04:15 Globulin 4.1 g/dL (2.5-4.5) 11/11/18 04:15 Albumin/Globulin Ratio 0.7 Ratio (1.1-2.1) L 11/11/18 04:15 Amylase 74 Units/L (25-115) 11/10/18 06:50 Lipase 161 Units/L (73-393) 11/10/18 06:50 Specimen Type Catherized urine 11/09/18 14:30 Urine Color Pale yellow (YELLOW) 11/09/18 14:30 Urine Appearance Hazy (CLEAR) 11/09/18 14:30 Urine pH 6.5 (5.0 - 8.0) 11/09/18 14:30 Ur Specific [place] 1.015 (1.000-1.030) 11/09/18 14:30 Urine Protein 3+ (NEGATIVE) 11/09/18 14:30 Urine Glucose (UA) 2+ (NEGATIVE) 11/09/18 14:30 Urine Ketones Negative (NEGATIVE) 11/09/18 14:30 Urine Occult Blood 3+ (NEGATIVE) 11/09/18 14:30 Urine Nitrite Negative (NEGATIVE) 11/09/18 14:30 Urine Bilirubin Negative (NEGATIVE) 11/09/18 14:30 Urine Urobilinogen Normal (NORMAL) 11/09/18 14:30 Ur Leukocyte Esterase 2+ (NEGATIVE) 11/09/18 14:30 Urine RBC 10-20 /HPF (NONE SEEN) 11/09/18 14:30 Urine WBC 5-10 /HPF (NONE SEEN) 11/09/18 14:30 Ur Squamous Epith Cells Many /HPF (NEGATIVE) 11/09/18 14:30 Amorphous Sediment 1+ /HPF (NEGATIVE) 11/09/18 14:30 Urine Bacteria Trace /HPF (NEGATIVE) 11/09/18 14:30 Urine Mucus Few /HPF (NEGATIVE) 11/09/18 14:30 Urine Yeast Rare /HPF (NEGATIVE) 11/09/18 14:30 Ur Culture Indicated? Yes/culture set up 11/09/18 14:30 Random Vancomycin 15.7 ug/mL 11/09/18 11:25 - Plan (1) Osteomyelitis of lumbar spine Status: Acute Plan: MRI LUMBAR SPINE. IV VANCOMYCIN. BLOOD CULTURES, PAIN CONTROL (2) Abdominal pain Status: Acute Qualifiers: Abdominal location: generalized Qualified Code(s): R10.84 - Generalized a bdominal pain Plan: IV HYDRATION, PAIN CONTROL. PPI THERAPY, NPO UNTIL N/V STOPS, THEN ADVANCE CLEAR LIQUIDS (3) Diabetic gastroparesis Status: Acute (4) CKD (chronic kidney disease) stage 4, GFR 15-29 ml/min Status: Chronic (5) Uncontrolled diabetes mellitus Status: Chronic (6) Uncontrolled hypertension Status: Chronic
[2018-11-11] MEDS: COLACE CAP 100 MG PO SCH (21:01)
[2018-11-11] MEDS: LOVENOX INJ 40 MG SYR SC SCH (21:01)
[2018-11-11] MEDS: PEPCID 20 MG IV PREMIX* 20 MG/50 ML BAG IV SCH (21:48)
[2018-11-11] MEDS: NS 1000 ML 1,000 ML IV PRN (23:56)
[2018-11-12 05:36] LABS: BASOPHILS % (AUTO) 0.4 % (0.2-1.0); EOSINOPHILS # (AUTO) 0.5 x10^3/uL (0.0-0.2); EOSINOPHILS % (AUTO) 5.7 % (0.9-2.9); HEMATOCRIT 24.5 % (36.0-47.0); HEMOGLOBIN 8.1 g/dL (12.0-16.0); LYMPHOCYTES # (AUTO) 2.4 X10^3/uL (1.3-2.9); LYMPHOCYTES % (AUTO) 29.7 % (21.0-51.0); MEAN CORPUSCULAR HEMOGLOBIN 28.8 pg (27.0-34.0); MEAN CORPUSCULAR HGB CONC 33.2 g/dL (33.0-35.0); MEAN CORPUSCULAR VOLUME 86.8 fL (80.0-100.0); MONOCYTES # (AUTO) 0.6 x10^3/uL (0.3-0.8); MONOCYTES % (AUTO) 7.7 % (0.0-13.0); NEUTROPHILS # (AUTO) 4.6 x10^3/uL (2.2-4.8); NEUTROPHILS % (AUTO) 56.5 % (42.0-75.0); PLATELET COUNT 222 X10^3/uL (150.0-450.0); RED BLOOD COUNT 2.82 X10^6/uL (3.5-5.4); RED CELL DISTRIBUTION WIDTH 16.5 % (11.6-16.5); WHITE BLOOD COUNT 8.1 X10^3/uL (3.6-10.0)
[2018-11-12 05:41] LABS: ALANINE AMINOTRANSFERASE 28 Units/L (12-78); ALBUMIN 2.8 g/dL (3.4-5.0); ALKALINE PHOSPHATASE 117 Units/L (46-116); ASPARTATE AMINO TRANSFERASE 14 Units/L (15-37); BLOOD UREA NITROGEN 16 mg/dL (7-18); CARBON DIOXIDE 26.6 mmol/L (21-32); CHLORIDE 104 mmol/L (98-107); CREATININE 1.47 mg/dL (0.55-1.02); SODIUM 138 mmol/L (136-145); TOTAL PROTEIN 6.9 g/dL (6.4-8.2); eGFR NON BLACK RACES 43 (>60)
[2018-11-12] MEDS: DILAUDID INJ IVP PRN ×3 (06:00→22:01)
[2018-11-12] MEDS: PEPCID 20 MG IV PREMIX* 20 MG/50 ML BAG IV SCH ×2 (08:46→21:08)
[2018-11-12] MEDS: MILK OF MAGNESIA PO SCH ×3 (08:47→21:11)
[2018-11-12] MEDS: CHRONULAC PO SCH (08:47)
[2018-11-12] MEDS ORDERED: ZESTRIL TAB 20 MG ONE (10:26)
[2018-11-12] MEDS: PERCOCET TAB 5/325 MG PO SCH (11:14)
[2018-11-12] MEDS: NORVASC TAB 10 MG PO SCH (11:16)
[2018-11-12] MEDS: ZESTRIL TAB 20 MG PO SCH (11:16)
[2018-11-12] MEDS ORDERED: PHARMACY COMMENT IV NR (11:30)
[2018-11-12] MEDS ORDERED: VANCOMYCIN HCL 500 MG VIAL 500 MG, VANCOMYCIN HCL 1 GM VIAL 1 G in NS 250 ML IV 250 ML IV SCH (12:00)
[2018-11-12] MEDS ORDERED: OFIRMEV IV 1000 MG VIAL 500 MG/50 ML VIAL IV PRN (12:43)
[2018-11-12 13:21] LABS: CREATININE 1.58 mg/dL (0.55-1.02)
[2018-11-12 13:24] LABS: VANCOMYCIN,TROUGH 25.7 ug/mL (15-20)
[2018-11-12] MEDS: REGLAN INJ 10 MG VIAL IVP SCH ×3 (15:59→21:06)
[2018-11-12] MEDS: COSOPT OPTH OP SCH (21:04)
[2018-11-12] MEDS: COREG TAB 3.125 MG PO SCH (21:10)
[2018-11-12] MEDS: COLACE CAP 100 MG PO SCH (21:10)
[2018-11-12] MEDS: LOVENOX INJ 40 MG SYR SC SCH (21:11)
[2018-11-12] MEDS: XALATAN OP SCH (21:30)
[2018-11-13] MEDS: REGLAN INJ 10 MG VIAL IVP SCH ×5 (04:55→21:32)
[2018-11-13] MEDS: DILAUDID INJ IVP PRN ×3 (06:02→22:01)
[2018-11-13 06:38] LABS: BASOPHILS % (AUTO) 0.7 % (0.2-1.0); EOSINOPHILS # (AUTO) 0.4 x10^3/uL (0.0-0.2); EOSINOPHILS % (AUTO) 5.2 % (0.9-2.9); HEMATOCRIT 24.8 % (36.0-47.0); HEMOGLOBIN 8.4 g/dL (12.0-16.0); LYMPHOCYTES # (AUTO) 1.8 X10^3/uL (1.3-2.9); MEAN CORPUSCULAR HEMOGLOBIN 28.8 pg (27.0-34.0); MEAN CORPUSCULAR HGB CONC 33.8 g/dL (33.0-35.0); MEAN CORPUSCULAR VOLUME 85.3 fL (80.0-100.0); MEAN PLATELET VOLUME 8.7 fL (7.4-11.0); MONOCYTES # (AUTO) 0.5 x10^3/uL (0.3-0.8); NEUTROPHILS # (AUTO) 4.1 x10^3/uL (2.2-4.8); NEUTROPHILS % (AUTO) 60.1 % (42.0-75.0); PLATELET COUNT 231 X10^3/uL (150.0-450.0); RED CELL DISTRIBUTION WIDTH 16.7 % (11.6-16.5); WHITE BLOOD COUNT 6.8 X10^3/uL (3.6-10.0)
[2018-11-13 07:44] LABS: ALBUMIN 2.8 g/dL (3.4-5.0); CARBON DIOXIDE 24.4 mmol/L (21-32); CREATININE 1.6 mg/dL (0.55-1.02)
[2018-11-13] MEDS ORDERED: ZESTRIL TAB 20 MG ONE (08:29)
[2018-11-13] MEDS: ZESTRIL TAB 20 MG PO SCH (08:57)
[2018-11-13] MEDS: PEPCID 20 MG IV PREMIX* 20 MG/50 ML BAG IV SCH ×2 (08:57→22:04)
[2018-11-13] MEDS: COREG TAB 3.125 MG PO SCH ×2 (08:58→21:51)
[2018-11-13] MEDS: NORVASC TAB 10 MG PO SCH (08:58)
[2018-11-13] MEDS: PLAVIX PO SCH (08:59)
[2018-11-13] MEDS: PERCOCET TAB 5/325 MG PO SCH (08:59)
[2018-11-13] MEDS ORDERED: DIFLUCAN PO NR (09:18)
[2018-11-13] MEDS: NYSTATIN SUSP PO SCH ×4 (11:00→21:53)
[2018-11-13] MEDS: CHRONULAC PO SCH (12:14)
[2018-11-13] MEDS: MILK OF MAGNESIA PO SCH ×3 (12:14→21:53)
[2018-11-13] MEDS: COSOPT OPTH OP SCH ×2 (12:14→21:28)
[2018-11-13] MEDS: VANCOMYCIN HCL 1 GM VIAL 1 G in NS 250 ML IV 250 ML IV SCH (14:04)
[2018-11-13] MEDS: NS 1000 ML 1,000 ML IV PRN (19:35)
[2018-11-13] MEDS: XALATAN OP SCH (21:30)
[2018-11-13] MEDS: COLACE CAP 100 MG PO SCH (21:50)
[2018-11-13] MEDS: LOVENOX INJ 40 MG SYR SC SCH (21:51)
[2018-11-14] MEDS: REGLAN INJ 10 MG VIAL IVP SCH ×4 (04:02→21:24)
[2018-11-14 05:58] LABS: BASOPHILS # (AUTO) 0.1 X10^3/uL (0.0-0.1); BASOPHILS % (AUTO) 0.7 % (0.2-1.0); EOSINOPHILS # (AUTO) 0.4 x10^3/uL (0.0-0.2); HEMATOCRIT 28.7 % (36.0-47.0); HEMOGLOBIN 9.3 g/dL (12.0-16.0); LYMPHOCYTES # (AUTO) 2.1 X10^3/uL (1.3-2.9); LYMPHOCYTES % (AUTO) 26.1 % (21.0-51.0); MEAN CORPUSCULAR HEMOGLOBIN 27.9 pg (27.0-34.0); MEAN CORPUSCULAR HGB CONC 32.6 g/dL (33.0-35.0); MEAN CORPUSCULAR VOLUME 85.6 fL (80.0-100.0); MEAN PLATELET VOLUME 9.2 fL (7.4-11.0); MONOCYTES # (AUTO) 0.5 x10^3/uL (0.3-0.8); MONOCYTES % (AUTO) 6.2 % (0.0-13.0); PLATELET COUNT 264 X10^3/uL (150.0-450.0); RED BLOOD COUNT 3.35 X10^6/uL (3.5-5.4); RED CELL DISTRIBUTION WIDTH 16.4 % (11.6-16.5); WHITE BLOOD COUNT 8.1 X10^3/uL (3.6-10.0)
[2018-11-14] MEDS: DILAUDID INJ IVP PRN ×3 (05:58→22:13)
[2018-11-14 06:22] LABS: CALCIUM 9.3 mg/dL (8.5-10.1); CARBON DIOXIDE 25.3 mmol/L (21-32); COR CA(FOR HYPOALB) 10.1 mg/dL (8.5-10.1); CREATININE 1.38 mg/dL (0.55-1.02); TOTAL PROTEIN 7.5 g/dL (6.4-8.2)
[2018-11-14] MEDS ORDERED: ZESTRIL TAB 20 MG ONE (07:15)
[2018-11-14] MEDS: PERCOCET TAB 5/325 MG PO SCH (08:44)
[2018-11-14] MEDS: NORVASC TAB 10 MG PO SCH (08:55)
[2018-11-14] MEDS: COREG TAB 3.125 MG PO SCH ×2 (08:55→20:42)
[2018-11-14] MEDS: ZESTRIL TAB 20 MG PO SCH (08:55)
[2018-11-14] MEDS: MILK OF MAGNESIA PO SCH ×3 (08:56→21:23)
[2018-11-14] MEDS: PEPCID 20 MG IV PREMIX* 20 MG/50 ML BAG IV SCH ×2 (08:56→20:36)
[2018-11-14] MEDS: NYSTATIN SUSP PO SCH ×4 (08:56→20:36)
[2018-11-14] MEDS: COSOPT OPTH OP SCH ×2 (08:56→21:23)
[2018-11-14] MEDS: CHRONULAC PO SCH ×2 (08:56→09:07)
[2018-11-14] MEDS: PLAVIX PO SCH (08:57)
[2018-11-14] MEDS ORDERED: NS 100 ML IV 100 ML with VENOFER 400 MG IV NR ×2 (10:00)
[2018-11-14] MEDS ORDERED: TORADOL 30 MG VIAL IVP NR (10:06)
[2018-11-14] MEDS: CIPRO IV 400 MG PREMIX* 400 MG/200 ML IV.SOLN. IV SCH ×2 (11:02→20:34)
[2018-11-14] MEDS: VANCOMYCIN HCL 1 GM VIAL 1 G in NS 250 ML IV 250 ML IV SCH (12:06)
[2018-11-14] MEDS: NS 1000 ML 1,000 ML IV PRN (16:57)
[2018-11-14] MEDS: COLACE CAP 100 MG PO SCH (21:22)
[2018-11-14] MEDS: XALATAN OP SCH (21:22)
[2018-11-14] MEDS: LOVENOX INJ 40 MG SYR SC SCH (21:23)
[2018-11-15] MEDS: REGLAN INJ 10 MG VIAL IVP SCH ×4 (03:53→21:05)
[2018-11-15 05:49] LABS: BASOPHILS % (AUTO) 0.5 % (0.2-1.0); EOSINOPHILS # (AUTO) 0.5 x10^3/uL (0.0-0.2); EOSINOPHILS % (AUTO) 6.4 % (0.9-2.9); HEMATOCRIT 27.1 % (36.0-47.0); LYMPHOCYTES # (AUTO) 1.6 X10^3/uL (1.3-2.9); LYMPHOCYTES % (AUTO) 20.3 % (21.0-51.0); MEAN CORPUSCULAR HEMOGLOBIN 28.3 pg (27.0-34.0); MEAN CORPUSCULAR HGB CONC 33.2 g/dL (33.0-35.0); MEAN CORPUSCULAR VOLUME 85.1 fL (80.0-100.0); MEAN PLATELET VOLUME 9.3 fL (7.4-11.0); MONOCYTES # (AUTO) 0.7 x10^3/uL (0.3-0.8); MONOCYTES % (AUTO) 9.1 % (0.0-13.0); NEUTROPHILS # (AUTO) 4.9 x10^3/uL (2.2-4.8); NEUTROPHILS % (AUTO) 63.7 % (42.0-75.0); PLATELET COUNT 249 X10^3/uL (150.0-450.0); RED BLOOD COUNT 3.18 X10^6/uL (3.5-5.4); RED CELL DISTRIBUTION WIDTH 16.1 % (11.6-16.5); WHITE BLOOD COUNT 7.7 X10^3/uL (3.6-10.0)
[2018-11-15] MEDS: DILAUDID INJ IVP PRN ×3 (06:05→22:03)
[2018-11-15 06:10] LABS: ALBUMIN 2.9 g/dL (3.4-5.0); CALCIUM 9.3 mg/dL (8.5-10.1); CARBON DIOXIDE 24.7 mmol/L (21-32); COR CA(FOR HYPOALB) 10.2 mg/dL (8.5-10.1); CREATININE 1.44 mg/dL (0.55-1.02); TOTAL PROTEIN 7.4 g/dL (6.4-8.2)
[2018-11-15] MEDS: COREG TAB 3.125 MG PO SCH ×2 (09:13→20:31)
[2018-11-15] MEDS: PEPCID 20 MG IV PREMIX* 20 MG/50 ML BAG IV SCH ×2 (09:14→20:32)
[2018-11-15] MEDS: CIPRO IV 400 MG PREMIX* 400 MG/200 ML IV.SOLN. IV SCH ×2 (09:15→20:32)
[2018-11-15] MEDS: CHRONULAC PO SCH (09:15)
[2018-11-15] MEDS: MILK OF MAGNESIA PO SCH ×2 (09:16→21:05)
[2018-11-15] MEDS: COSOPT OPTH OP SCH ×2 (09:17→20:37)
--- NOTE | 2018-11-15 09:31 | RAD ---
Exam: Portable chest History: 33-year-old female with diminished breath sounds at the lung base. Comparison: Previous chest radiograph from 02/05/2018 Findings: A right chest wall port is noted with the tip of the catheter in the superior vena cava. Heart size and pulmonary vasculature are normal. Lungs are clear with no infiltrate or significant effusion on either side. Bony thorax is unremarkable as well. Impression: No acute cardiopulmonary abnormality Reported By:
[2018-11-15] MEDS ORDERED: ZESTRIL TAB 20 MG ONE (09:34)
[2018-11-15] MEDS: PERCOCET TAB 5/325 MG PO SCH (09:49)
[2018-11-15] MEDS: NYSTATIN SUSP PO SCH ×4 (09:49→20:31)
[2018-11-15] MEDS: PLAVIX PO SCH (09:49)
[2018-11-15] MEDS: NORVASC TAB 10 MG PO SCH (09:49)
[2018-11-15] MEDS: ZESTRIL TAB 20 MG PO SCH (09:53)
[2018-11-15] MEDS: VANCOMYCIN HCL 1 GM VIAL 1 G in NS 250 ML IV 250 ML IV SCH (13:23)
--- NOTE | 2018-11-15 13:38 | PCM.PROG ---
Progress Note - Progress Note for Day of Date of Exam: 11/15/18 - Subjective Subjective: 33 BF ADMITTED ON 11/[address] OSVALDO PALOMINO OFFICE WITH CO N/V ABDOMINAL PAIN. PT WAS STARTED ON IV VACNOMYCIN FOR OSTEOMYELITIS OF THE LUMBAR SPINE. PT HAD REPEAT MRI LUMBAR SPINE CONFIRMING L SPINE OSTEOMYELITIS. PT HAD BLOOD CULTURE COLLECTED FORM [facility] ON 11/12 WITH FALSE POSITIVE REPORTED ON 11/14. PT WAS STARTED ON IV CIPRO AT THAT TIME. CONFIRMED WITH MICRO THIS AM, BC WITH NO GROWTH. PLANS TO PLACE PT AT [facility]TER DUE TO HER INABLITITY TO CARE FOR HERSELF AT THIS TIME AND LACK OF FAMILY RESOURCES. PT HAS STAGE 2 ULCERATION TO BUTTOCK WITHOUT LOCALIZED REDNESS OR D/C TO SITE. PT HAS ADVANCED DIET, DENIES ANY ABDOMINAL PAIN THIS AM. - Past Medical Family Social History Past Med/Fam/Surg Hx: No changes since H&P Allergies: Allergies Penicillins Allergy (Verified 12/10/17 14:38) ceftazidime [From Fortaz] Adverse Reaction (Verified 12/10/17 14:38) - Review of Systems ROS: No change since H&P - Vital Signs and I&O's Vital Signs: Temperature 98.9 F Pulse Rate [Right Brachial] 89 Pulse Rate [Left Radial] 88 Pulse Rate 87 Respiratory Rate 18 Blood Pressure [Right Arm] 135/84 Blood Pressure [Left Arm] 164/90 Blood Pressure 144/78 O2 Sat by Pulse Oximetry 99 Intake and Output: Intake & Output 11/13/18 11/14/18 11/15/18 11/16/18 11:59 11:59 11:59 11:59 Intake Total 1905 / 1905 2300 / 2300 3470 / 3470 Output Total 2500 / 2500 3700 / 3700 2950 / 2950 Balance -595 / -595 -1400 / -1400 520 / 520 - Physical Exam Oriented: Normal Eyes: Normal Ear: Normal Nose: Normal Throat: Normal Respiratory: Diminished Cardiovascular: Normal : Normal Auscultation: Bowel Sounds: Normal Tenderness: Moderate Skin: Wound (STAGE 2 TO LEFT TOP OF BUTTOCKS NEAR SACRUM) Musculoskeletal: Normal, Back:Thoracic, Back:Lumbar, Tender, Deformity Psychiatric: Anxiety Mood Description: Anxious Affect: Anxious Speech Pattern: Clear, Appropriate - Laboratory and Diagnostics Result Diagrams: 11/15/18 05:19 11/15/18 05:19 Labs: 06/28/19 09:12 Blood Blood Culture - Preliminary 11/10/18 13:21 Blood Blood Culture - Preliminary 11/10/18 13:08 Blood Blood Culture - Preliminary 11/09/18 14:30 Urine,Catheterized Urine Culture - Final Laboratory WBC 7.7 X10^3/uL (3.6-10.0) 11/15/18 05:19 RBC 3.18 X10^6/uL (3.5-5.4) L 11/15/18 05:19 Hgb 9.0 g/dL (12.0-16.0) L 11/15/18 05:19 Hct 27.1 % (36.0-47.0) L 11/15/18 05:19 MCV 85.1 fL (80.0-100.0) 11/15/18 05:19 MCH 28.3 pg (27.0-34.0) 11/15/18 05:19 MCHC 33.2 g/dL (33.0-35.0) 11/15/18 05:19 RDW 16.1 % (11.6-16.5) 11/15/18 05:19 Plt Count 249 X10^3/uL (150.0-450.0) 11/15/18 05:19 MPV 9.3 fL (7.4-11.0) 11/15/18 05:19 Neut % (Auto) 63.7 % (42.0-75.0) 11/15/18 05:19 Lymph % (Auto) 20.3 % (21.0-51.0) L 11/15/18 05:19 [place] % (Auto) 9.1 % (0.0-13.0) 11/15/18 05:19 Eos % (Auto) 6.4 % (0.9-2.9) H 11/15/18 05:19 Baso % (Auto) 0.5 % (0.2-1.0) 11/15/18 05:19 Neut # (Auto) 4.9 x10^3/uL (2.2-4.8) H 11/15/18 05:19 Lymph # (Auto) 1.6 X10^3/uL (1.3-2.9) 11/15/18 05:19 [place] # (Auto) 0.7 x10^3/uL (0.3-0.8) 11/15/18 05:19 Eos # (Auto) 0.5 x10^3/uL (0.0-0.2) H 11/15/18 05:19 Baso # (Auto) 0.0 X10^3/uL (0.0-0.1) 11/15/18 05:19 Absolute Nucleated RBC 0.1 /100WBC 11/15/18 05:19 ESR 78 MM/HOUR (0-20) H 11/10/18 13:21 Sodium 138 mmol/L (136-145) 11/15/18 05:19 Corrected Sodium 139 mmol/L (136-145) 11/15/18 05:19 Potassium 4.3 mmol/L (3.5-5.1) 11/15/18 05:19 Chloride 104 mmol/L (98-107) 11/15/18 05:19 Carbon Dioxide 24.7 mmol/L (21-32) 11/15/18 05:19 BUN 16 mg/dL (7-18) 11/15/18 05:19 Creatinine 1.44 mg/dL (0.55-1.02) H 11/15/18 05:19 Est GFR (MDRD) Af Amer 54 (>60) L 11/15/18 05:19 Est GFR (MDRD) Non-Af 44 (>60) L 11/15/18 05:19 Glucose 121 mg/dL (65-99) H 11/15/18 05:19 POC Glucose (mg/dL) 108 mg/dL (65-99) H 11/15/18 11:56 Calcium 9.3 mg/dL (8.5-10.1) 11/15/18 05:19 Corrected Calcium 10.2 mg/dL (8.5-10.1) H 11/15/18 05:19 Magnesium 2.0 mg/dL (1.7-2.9) 11/10/18 06:50 Iron 32 ug/dL (50-175) L 11/13/18 06:17 Transferrin 180 mg/dL (202-364) L 11/13/18 06:17 Ferritin 97 ng/mL (8-252) 11/13/18 06:17 Total Bilirubin 0.20 mg/dL (0.2-1.0) 11/15/18 05:19 AST 19 Units/L (15-37) 11/15/18 05:19 ALT 30 Units/L (12-78) 11/15/18 05:19 Alkaline Phosphatase 125 Units/L (46-116) H 11/15/18 05:19 C-Reactive Protein 1.50 mg/L (0-3.0) 11/10/18 13:21 C-React Prot High Sens Cancelled 11/10/18 13:21 Total Protein 7.4 g/dL (6.4-8.2) 11/15/18 05:19 Albumin 2.9 g/dL (3.4-5.0) L 11/15/18 05:19 Globulin 4.5 g/dL (2.5-4.5) 11/15/18 05:19 Albumin/Globulin Ratio 0.6 Ratio (1.1-2.1) L 11/15/18 05:19 Amylase 74 Units/L (25-115) 11/10/18 06:50 Lipase 161 Units/L (73-393) 11/10/18 06:50 Vitamin B12 1140 pg/mL (193-986) H 11/13/18 06:17 Folate 9.8 ng/mL (>8.6) 11/13/18 06:17 Specimen Type Catherized urine 11/09/18 14:30 Urine Color Pale yellow (YELLOW) 11/09/18 14:30 Urine Appearance Hazy (CLEAR) 11/09/18 14:30 Urine pH 6.5 (5.0 - 8.0) 11/09/18 14:30 Ur Specific [place] 1.015 (1.000-1.030) 11/09/18 14:30 Urine Protein 3+ (NEGATIVE) 11/09/18 14:30 Urine Glucose (UA) 2+ (NEGATIVE) 11/09/18 14:30 Urine Ketones Negative (NEGATIVE) 11/09/18 14:30 Urine Occult Blood 3+ (NEGATIVE) 11/09/18 14:30 Urine Nitrite Negative (NEGATIVE) 11/09/18 14:30 Urine Bilirubin Negative (NEGATIVE) 11/09/18 14:30 Urine Urobilinogen Normal (NORMAL) 11/09/18 14:30 Ur Leukocyte Esterase 2+ (NEGATIVE) 11/09/18 14:30 Urine RBC 10-20 /HPF (NONE SEEN) 11/09/18 14:30 Urine WBC 5-10 /HPF (NONE SEEN) 11/09/18 14:30 Ur Squamous Epith Cells Many /HPF (NEGATIVE) 11/09/18 14:30 Amorphous Sediment 1+ /HPF (NEGATIVE) 11/09/18 14:30 Urine Bacteria Trace /HPF (NEGATIVE) 11/09/18 14:30 Urine Mucus Few /HPF (NEGATIVE) 11/09/18 14:30 Urine Yeast Rare /HPF (NEGATIVE) 11/09/18 14:30 Ur Culture Indicated? Yes/culture set up 11/09/18 14:30 Vancomycin Trough 25.7 ug/mL (15-20) H* 11/12/18 12:50 Random Vancomycin 13.1 ug/mL 11/13/18 10:40 - Plan (1) Osteomyelitis of lumbar spine Status: Acute Plan: MRI LUMBAR SPINE. IV VANCOMYCIN, CIPRO. REPEAT BLOOD CULTURES, PAIN CONTROL. SHELTER PLACEMENT (2) Abdominal pain Status: Acute Qualifiers: Abdominal location: generalized Qualified Code(s): R10.84 - Generalized abdominal pain Plan: IV HYDRATION, PAIN CONTROL. PPI THERAPY (3) Diabetic gastroparesis Status: Acute (4) CKD (chronic kidney disease) stage 4, GFR 15-29 ml/min Status: Chronic (5) Uncontrolled diabetes mellitus Status: Chronic (6) Uncontrolled hypertension Status: Chronic (7) Stage II decubitus ulcer Status: Acute Qualifiers: Pressure injury location: buttock
[2018-11-15] MEDS: NS 1000 ML 1,000 ML IV PRN (19:00)
[2018-11-15] MEDS: XALATAN OP SCH (20:39)
[2018-11-15] MEDS: COLACE CAP 100 MG PO SCH (20:40)
[2018-11-15] MEDS: LOVENOX INJ 40 MG SYR SC SCH (21:04)
[2018-11-16] MEDS: REGLAN INJ 10 MG VIAL IVP SCH ×4 (04:07→21:26)
[2018-11-16] MEDS: DILAUDID INJ IVP PRN ×3 (05:52→22:05)
[2018-11-16 06:19] LABS: ALANINE AMINOTRANSFERASE 28 Units/L (12-78); ALBUMIN 2.7 g/dL (3.4-5.0); ALKALINE PHOSPHATASE 116 Units/L (46-116); ASPARTATE AMINO TRANSFERASE 15 Units/L (15-37); BLOOD UREA NITROGEN 18 mg/dL (7-18); CALCIUM 8.9 mg/dL (8.5-10.1); CARBON DIOXIDE 23.9 mmol/L (21-32); CHLORIDE 105 mmol/L (98-107); COR CA(FOR HYPOALB) 9.9 mg/dL (8.5-10.1); CREATININE 1.59 mg/dL (0.55-1.02); SODIUM 139 mmol/L (136-145); TOTAL PROTEIN 6.8 g/dL (6.4-8.2); eGFR NON BLACK RACES 40 (>60)
[2018-11-16 06:22] LABS: BASOPHILS # (AUTO) 0.1 X10^3/uL (0.0-0.1); BASOPHILS % (AUTO) 0.7 % (0.2-1.0); EOSINOPHILS # (AUTO) 0.4 x10^3/uL (0.0-0.2); EOSINOPHILS % (AUTO) 5.1 % (0.9-2.9); HEMATOCRIT 24.8 % (36.0-47.0); HEMOGLOBIN 8.2 g/dL (12.0-16.0); LYMPHOCYTES # (AUTO) 2.4 X10^3/uL (1.3-2.9); LYMPHOCYTES % (AUTO) 28.2 % (21.0-51.0); MEAN CORPUSCULAR HEMOGLOBIN 28.4 pg (27.0-34.0); MEAN CORPUSCULAR HGB CONC 33.2 g/dL (33.0-35.0); MEAN CORPUSCULAR VOLUME 85.6 fL (80.0-100.0); MEAN PLATELET VOLUME 8.4 fL (7.4-11.0); MONOCYTES # (AUTO) 0.8 x10^3/uL (0.3-0.8); MONOCYTES % (AUTO) 9.5 % (0.0-13.0); NEUTROPHILS # (AUTO) 4.7 x10^3/uL (2.2-4.8); NEUTROPHILS % (AUTO) 56.5 % (42.0-75.0); PLATELET COUNT 249 X10^3/uL (150.0-450.0); RED CELL DISTRIBUTION WIDTH 16.3 % (11.6-16.5); WHITE BLOOD COUNT 8.4 X10^3/uL (3.6-10.0)
[2018-11-16] MEDS ORDERED: ZESTRIL TAB 20 MG ONE (07:31)
[2018-11-16] MEDS: PEPCID 20 MG IV PREMIX* 20 MG/50 ML BAG IV SCH ×2 (08:47→21:22)
[2018-11-16] MEDS: CHRONULAC PO SCH (08:47)
[2018-11-16] MEDS: CIPRO IV 400 MG PREMIX* 400 MG/200 ML IV.SOLN. IV SCH ×2 (08:47→21:22)
[2018-11-16] MEDS: COREG TAB 3.125 MG PO SCH ×2 (08:48→21:23)
[2018-11-16] MEDS: PERCOCET TAB 5/325 MG PO SCH (08:49)
[2018-11-16] MEDS: NORVASC TAB 10 MG PO SCH (08:50)
[2018-11-16] MEDS: NYSTATIN SUSP PO SCH ×4 (08:50→21:22)
[2018-11-16] MEDS: ZESTRIL TAB 20 MG PO SCH (08:50)
[2018-11-16] MEDS: MILK OF MAGNESIA PO SCH ×2 (08:51→21:21)
[2018-11-16] MEDS: COSOPT OPTH OP SCH ×2 (08:51→21:33)
[2018-11-16] MEDS: PLAVIX PO SCH (09:00)
[2018-11-16 12:06] LABS: CREATININE 1.7 mg/dL (0.55-1.02)
[2018-11-16 12:18] LABS: VANCOMYCIN,TROUGH 13.5 ug/mL (15-20)
[2018-11-16] MEDS: VANCOMYCIN HCL 1 GM VIAL 1 G in NS 250 ML IV 250 ML IV SCH (13:07)
[2018-11-16] MEDS: ZOFRAN INJ 4 MG VIAL IVP PRN (15:19)
[2018-11-16] MEDS: NS 1000 ML 1,000 ML IV PRN (17:33)
[2018-11-16] MEDS: COLACE CAP 100 MG PO SCH (21:22)
[2018-11-16] MEDS: LOVENOX INJ 40 MG SYR SC SCH (21:32)
[2018-11-16] MEDS: XALATAN OP SCH (21:33)
[2018-11-17] MEDS: REGLAN INJ 10 MG VIAL IVP SCH ×2 (03:44→09:59)
[2018-11-17] MEDS: DILAUDID INJ IVP PRN (05:52)
[2018-11-17 05:59] LABS: BASOPHILS # (AUTO) 0.1 X10^3/uL (0.0-0.1); BASOPHILS % (AUTO) 0.8 % (0.2-1.0); EOSINOPHILS # (AUTO) 0.4 x10^3/uL (0.0-0.2); EOSINOPHILS % (AUTO) 4.3 % (0.9-2.9); HEMATOCRIT 25.7 % (36.0-47.0); HEMOGLOBIN 8.6 g/dL (12.0-16.0); LYMPHOCYTES # (AUTO) 2.3 X10^3/uL (1.3-2.9); LYMPHOCYTES % (AUTO) 23.9 % (21.0-51.0); MEAN CORPUSCULAR HEMOGLOBIN 28.4 pg (27.0-34.0); MEAN CORPUSCULAR HGB CONC 33.3 g/dL (33.0-35.0); MEAN CORPUSCULAR VOLUME 85.3 fL (80.0-100.0); MEAN PLATELET VOLUME 8.5 fL (7.4-11.0); MONOCYTES # (AUTO) 0.9 x10^3/uL (0.3-0.8); MONOCYTES % (AUTO) 9.2 % (0.0-13.0); NEUTROPHILS # (AUTO) 5.9 x10^3/uL (2.2-4.8); NEUTROPHILS % (AUTO) 61.8 % (42.0-75.0); PLATELET COUNT 272 X10^3/uL (150.0-450.0); RED BLOOD COUNT 3.01 X10^6/uL (3.5-5.4); RED CELL DISTRIBUTION WIDTH 16.2 % (11.6-16.5); WHITE BLOOD COUNT 9.6 X10^3/uL (3.6-10.0)
[2018-11-17] MEDS: NS 1000 ML 1,000 ML IV PRN (06:03)
[2018-11-17 06:22] LABS: ALBUMIN 2.7 g/dL (3.4-5.0); CALCIUM 8.8 mg/dL (8.5-10.1); CARBON DIOXIDE 23.9 mmol/L (21-32); COR CA(FOR HYPOALB) 9.8 mg/dL (8.5-10.1); CREATININE 1.63 mg/dL (0.55-1.02); TOTAL PROTEIN 7.1 g/dL (6.4-8.2)
[2018-11-17] MEDS ORDERED: ZESTRIL TAB 20 MG ONE (07:18)
[2018-11-17] MEDS: COREG TAB 3.125 MG PO SCH (08:43)
[2018-11-17] MEDS: ZESTRIL TAB 20 MG PO SCH (08:43)
[2018-11-17] MEDS: NYSTATIN SUSP PO SCH ×2 (08:43→13:31)
[2018-11-17] MEDS: CHRONULAC PO SCH (08:43)
[2018-11-17] MEDS: PLAVIX PO SCH (08:44)
[2018-11-17] MEDS: PEPCID 20 MG IV PREMIX* 20 MG/50 ML BAG IV SCH (08:44)
[2018-11-17] MEDS: COSOPT OPTH OP SCH (08:45)
[2018-11-17] MEDS: PERCOCET TAB 5/325 MG PO SCH (08:46)
[2018-11-17] MEDS: MILK OF MAGNESIA PO SCH (08:46)
[2018-11-17] MEDS: NORVASC TAB 10 MG PO SCH (08:46)
[2018-11-17] MEDS: CIPRO IV 400 MG PREMIX* 400 MG/200 ML IV.SOLN. IV SCH (08:47)
[2018-11-17] MEDS ORDERED: DILAUDID INJ IVP PRN (09:31)
[2018-11-17] MEDS ORDERED: BUTT CREAM (COMPOUND) ONE (09:43)
[2018-11-17] MEDS ORDERED: BUTT CREAM (COMPOUND) TOP PRN (09:44)
[2018-11-17] MEDS ORDERED: PHARMACY COMMENT IV NR (11:00)
[2018-11-17] MEDS: VANCOMYCIN HCL 1 GM VIAL 1 G in NS 250 ML IV 250 ML IV SCH (12:02)
[2018-11-17 12:33] VITALS: BP 128/71
== END 2018-11-17 13:10 | disposition home or self-care (01) | DRG 540 ==
LOC: ICU → MED/SURG 11-10 17:09
PROVIDERS: ADMIT Internal Medicine; ATTEND Internal Medicine
DX: N17.8 Other acute kidney failure; R11.2 Nausea with vomiting, unspecified; L89.322 Pressure ulcer of left buttock, stage 2; R26.89 Other abnormalities of gait and mobility; N18.4 Chronic kidney disease, stage 4 (severe); Z89.512 Acquired absence of left leg below knee; I12.9 Hypertensive chronic kidney disease with stage 1 through stage 4 chronic kidney disease, or unspecified chronic kidney disease; K31.84 Gastroparesis; R10.84 Generalized abdominal pain; I25.10 Atherosclerotic heart disease of native coronary artery without angina pectoris; D50.8 Other iron deficiency anemias; E11.65 Type 2 diabetes mellitus with hyperglycemia; M46.26 Osteomyelitis of vertebra, lumbar region; E11.43 Type 2 diabetes mellitus with diabetic autonomic (poly)neuropathy
CPT/HCPCS: 36415; 71010; 71045; 72158; 74000; 74018; 74022; 80053; 80202; 81001; 82150; 82565; 82607; 82728; 82746; 83540; 83690; 83735; 84466; 85025; 85652; 86140; 87040; 87075; 87086; 97110; 97112; 97163; 97165; 97530; A4222; C9113; S0028; G0378; J0744; J1170; J1200; J1642; J1650; J1756; J1815; J1885; J2405; J2765; J3370; J3490; J7030; J7050; J7060

== ENCOUNTER 2019-08-02 16:28 | Inpatient (IN) ==
[2019-08-02] MEDS ORDERED: ATIVAN INJ 2 MG VIAL IVP ONE (17:14)
[2019-08-02] MEDS ORDERED: PERCOCET TAB 5/325 MG PO PRN (17:14)
[2019-08-02] MEDS ORDERED: NS 1000 ML 1,000 ML IV ONE ×2 (17:14→19:18)
[2019-08-02] MEDS ORDERED: ZOFRAN INJ 4 MG VIAL IVP PRN (17:14)
[2019-08-02] MEDS ORDERED: PHENERGAN INJ 25 MG IM PRN (17:14)
[2019-08-02] MEDS ORDERED: PHENERGAN INJ 25 MG IM ONE (17:14)
[2019-08-02] MEDS ORDERED: BENADRYL INJ 50 MG VIAL IV ONE (17:14)
[2019-08-02] MEDS ORDERED: DILAUDID INJ IVP ONE (17:14)
--- NOTE | 2019-08-02 17:26 | DR.H&P ---
H&P - History & Physical for Day of: H&P Date: 08/02/19 - Chief Complaint Chief Complaint: abdominal pain, N/V, gastroparesis - History of Present Illness History of Present Illness: Patient is a 33 year old female that is a direct admit from her PCP's office secondary to nausea, vomiting, abdominal pain due to gastroparesis. Patient denies fever but reports worsening in symptoms since Thursday despite medications. Does report vomiting green bile. Denies diarrhea. Patient was recently in LTAC secondary to osteomylitis of the spine. Patient will be admitted for further evaluation. - Past Medical History Past Medical History: Coronary Artery Disease, Hypertension, Diabetes, Renal Disease Additional Medical History: MORBID OBESITY - Past Surgical History Surgical History: Cholecystectomy - Family History Family Medical History: Diabetes Mellitus, Hypertension - Social History Does patient currently use any type of tobacco product: No Have you used tobacco products in the last 12 months: No Type of Tobacco Use: None Does any household member use tobacco: No Alcohol Use: None Drug Use: None - Medications Home Medications: Penicillins Allergy (Verified 12/10/17 14:38) ceftazidime [From Fortaz] Adverse Reaction (Verified 12/10/17 14:38) - Review of Systems Constitutional: See HPI Eyes: See HPI ENT: See HPI Respiratory: See HPI Cardiovascular: See HPI Gastrointestinal: See HPI, Nausea, Vomiting, Abdominal Pain Genitourinary: No Symptoms Reported Musculoskeletal: No Symptoms Reported Skin: No Symptoms Reported Neurological: No Symptoms Reported, See HPI - Physical Exam Vital Signs: Blood Pressure [Right Arm] 129/62 Blood Pressure [Left Arm] 128/71 Oriented: Normal Eyes: Normal Ear: Normal Nose: Normal Throat: Normal Respiratory: Clear Throughout Cardiovascular: Normal : Normal Auscultation: Bowel Sounds: Increased Palpation: Normal Tenderness: Epigastric, Guarding Skin: Normal Musculoskeletal: Normal Mood Description: Flat, Anxious Speech Pattern: Clear - Assessment/Plan (1) Osteomyelitis Status: Acute Plan: Ct spine (2) Nausea & vomiting Status: Acute Plan: Anti-emetics. Fluids (3) Abdominal pain Qualifiers: Abdominal location: generalized Qualified Code(s): R10.84 - Generalized abdominal pain Status: Acute Plan: Ct abdomen (4) Diabetes mellitus Status: Chronic Plan: Glucose monitoring - Allergies Allergies/Adverse Reactions: Allergies Allergy/AdvReac Type Severity Reaction Status Date / Time Penicillins Allergy Verified 12/10/17 14:38 ceftazidime [From Fortaz] AdvReac Verified 12/10/17 14:38
[2019-08-02 17:55] VITALS: BMI 32.1
[2019-08-02] MEDS ORDERED: NS 1000 ML 1,000 ML IV SCH (18:00)
[2019-08-02 18:06] LABS: BASOPHILS % (AUTO) 0.4 % (0.2-1.0); EOSINOPHILS # (AUTO) 0.1 x10^3/uL (0.0-0.2); EOSINOPHILS % (AUTO) 0.9 % (0.9-2.9); HEMATOCRIT 34.5 % (36.0-47.0); HEMOGLOBIN 11.2 g/dL (12.0-16.0); LYMPHOCYTES # (AUTO) 4.9 X10^3/uL (1.3-2.9); LYMPHOCYTES % (AUTO) 35.5 % (21.0-51.0); MEAN CORPUSCULAR HEMOGLOBIN 28.7 pg (27.0-34.0); MEAN CORPUSCULAR HGB CONC 32.5 g/dL (33.0-35.0); MEAN CORPUSCULAR VOLUME 88.4 fL (80.0-100.0); MEAN PLATELET VOLUME 8.8 fL (7.4-11.0); MONOCYTES # (AUTO) 0.9 x10^3/uL (0.3-0.8); MONOCYTES % (AUTO) 6.7 % (0.0-13.0); NEUTROPHILS # (AUTO) 7.8 x10^3/uL (2.2-4.8); NEUTROPHILS % (AUTO) 56.5 % (42.0-75.0); PLATELET COUNT 365 X10^3/uL (150.0-450.0); RED CELL DISTRIBUTION WIDTH 13.6 % (11.6-16.5); WHITE BLOOD COUNT 13.8 X10^3/uL (3.6-10.0)
[2019-08-02 18:27] LABS: ALANINE AMINOTRANSFERASE 21 Units/L (12-78); ALBUMIN 3.5 g/dL (3.4-5.0); ALKALINE PHOSPHATASE 121 Units/L (46-116); AMYLASE 87 Units/L (25-115); ASPARTATE AMINO TRANSFERASE 15 Units/L (15-37); BLOOD UREA NITROGEN 64 mg/dL (7-18); CALCIUM 9.8 mg/dL (8.5-10.1); CARBON DIOXIDE 27.7 mmol/L (21-32); CHLORIDE 97 mmol/L (98-107); CREATININE 4.89 mg/dL (0.55-1.02); LIPASE 353 Units/L (73-393); SODIUM 136 mmol/L (136-145); TOTAL PROTEIN 7.9 g/dL (6.4-8.2); eGFR NON BLACK RACES 11 (>60)
--- NOTE | 2019-08-02 19:12 | RAD ---
HISTORY:Intractable abdominal painStudy: Acute abdominal seriesComparison:NoneFindings:Right subclavian port terminates in the region of the SVC. The lungs are clear without consolidation, effusion or pneumothorax. The cardiac and mediastinal contours are within normal limits.Flat plate and upright evaluation of the abdomen demonstrates a nonobstructive bowel gas pattern . No gross free intraperitoneal air. No pathological soft tissue mass or calcification can be observed. The bony structures are grossly intact.Cholecystectomy clips are noted.IMPRESSION:1. No acute cardiopulmonary abnormality.2. No evidence of acute abdominal pathology.Electronically signed by: MARTÍNEZ REARDON (Aug 02, 2019 19:10:50)
[2019-08-02 20:13] LABS: BILIRUBIN,URINE NEGATIVE (NEGATIVE); BLOOD/HEMOGLOBIN,URINE NEGATIVE (NEGATIVE); GLUCOSE, URINE NEGATIVE (NEGATIVE); KETONES,URINE NEGATIVE (NEGATIVE); LEUKOCYTE ESTERASE ,URINE 1+ (NEGATIVE); NITRITES,URINE NEGATIVE (NEGATIVE); PROTEIN,URINE 2+ (NEGATIVE); UROBILINOGEN,URINE NORMAL (NORMAL)
[2019-08-02 20:30] LABS: APPEARANCE,URINE SLIGHTLY HAZY (CLEAR); BACTERIA,URINE 1+ /HPF (NEGATIVE); COLOR,URINE YELLOW (YELLOW); RBC,URINE 0-2 /HPF (0-3); SQUAMOUS EPITHELIAL CELL,UR MODERATE /HPF (NEGATIVE)
[2019-08-02] MEDS: NS + KCL 40 MEQ/L 1,000 ML IV SCH (20:30)
[2019-08-02] MEDS: MILK OF MAGNESIA PO SCH (21:00)
[2019-08-02] MEDS: REGLAN INJ 10 MG VIAL IVP SCH (21:00)
[2019-08-02] MEDS: PROTONIX INJ 40 MG VIAL IVP SCH (21:00)
[2019-08-02] MEDS: COLACE CAP 100 MG PO SCH (21:00)
[2019-08-02] MEDS: DILAUDID INJ IVP PRN (23:11)
[2019-08-03] MEDS: REGLAN INJ 10 MG VIAL IVP SCH ×3 (03:53→14:53)
[2019-08-03] MEDS: DILAUDID INJ IVP PRN ×4 (05:15→22:30)
[2019-08-03 05:36] LABS: BASOPHILS % (AUTO) 0.4 % (0.2-1.0); EOSINOPHILS # (AUTO) 0.3 x10^3/uL (0.0-0.2); HEMATOCRIT 30.2 % (36.0-47.0); HEMOGLOBIN 9.9 g/dL (12.0-16.0); LYMPHOCYTES # (AUTO) 4.5 X10^3/uL (1.3-2.9); LYMPHOCYTES % (AUTO) 39.2 % (21.0-51.0); MEAN CORPUSCULAR HEMOGLOBIN 28.9 pg (27.0-34.0); MEAN CORPUSCULAR HGB CONC 32.7 g/dL (33.0-35.0); MEAN CORPUSCULAR VOLUME 88.6 fL (80.0-100.0); MEAN PLATELET VOLUME 8.9 fL (7.4-11.0); MONOCYTES # (AUTO) 0.8 x10^3/uL (0.3-0.8); MONOCYTES % (AUTO) 7.3 % (0.0-13.0); NEUTROPHILS # (AUTO) 5.8 x10^3/uL (2.2-4.8); NEUTROPHILS % (AUTO) 50.1 % (42.0-75.0); PLATELET COUNT 295 X10^3/uL (150.0-450.0); RED CELL DISTRIBUTION WIDTH 13.9 % (11.6-16.5); WHITE BLOOD COUNT 11.6 X10^3/uL (3.6-10.0)
[2019-08-03 05:41] LABS: ALANINE AMINOTRANSFERASE 21 Units/L (12-78); ALBUMIN 3.1 g/dL (3.4-5.0); ALKALINE PHOSPHATASE 105 Units/L (46-116); ASPARTATE AMINO TRANSFERASE 15 Units/L (15-37); BLOOD UREA NITROGEN 61 mg/dL (7-18); CALCIUM 8.5 mg/dL (8.5-10.1); CARBON DIOXIDE 26.4 mmol/L (21-32); CHLORIDE 104 mmol/L (98-107); COR CA(FOR HYPOALB) 9.2 mg/dL (8.5-10.1); CREATININE 3.91 mg/dL (0.55-1.02); SODIUM 139 mmol/L (136-145); TOTAL PROTEIN 6.7 g/dL (6.4-8.2); eGFR NON BLACK RACES 14 (>60)
[2019-08-03] MEDS: NS + KCL 40 MEQ/L 1,000 ML IV SCH ×2 (05:53→14:00)
[2019-08-03] MEDS: PROTONIX INJ 40 MG VIAL IVP SCH ×2 (09:26→20:54)
[2019-08-03] MEDS: MILK OF MAGNESIA PO SCH ×2 (09:27→20:56)
--- NOTE | 2019-08-03 11:27 | MRI ---
HISTORY:Low back pain, history of osteomyelitis, unable to receive IV contrast due to GFR 14Study: MRI cervical spine without contrastComparison:MRI 11/11/2018Technique: Multiplanar multisequence MRI of the cervical spine was obtained utilizing standard departmental protocol .Findings:Alignment of the cervical spine is normal. Chronic fracture deformities of L4 and L5 are noted with mild height loss and obliteration of the intervertebral disc space at this level likely sequela of chronic osteomyelitis. There is convex bony retropulsion at this level resulting in mild spinal canal stenosis and moderate to severe bilateral foraminal and lateral recess stenosis at L4-5 and mild bilateral foraminal stenosis at L5-S1. No acute fractures seen. The surrounding paraspinal soft tissues appear intact. The remaining disc spaces and vertebral bodies are preserved. Conus terminates at T12. No abnormal cord signal. No marrow edema is seen to suggest acute inflammation or infection although evaluation is limited by lack of IV contrast.IMPRESSION:Chronic fracture deformities of L4 and L5 likely sequela of chronic osteomyelitis; there is convex bony retropulsion resulting in mild spinal canal stenosis and moderate to severe bilateral foraminal and lateral recess stenosis at L4-5 and mild bilateral foraminal narrowing at L5-S1.No marrow edema to suggest acute fracture or active inflammation although evaluation is limited by lack of IV contrast.Electronically signed by: MARTÍNEZ REARDON (Aug 03, 2019 11:26:09)
[2019-08-03] MEDS ORDERED: VANCOMYCIN HCL 250 MG, VANCOMYCIN HCL 1 G in NS 250 ML IV 250 ML IV ONE (12:00)
[2019-08-03] MEDS ORDERED: LIORESAL PO PRN (12:30)
[2019-08-03] MEDS ORDERED: VANCOMYCIN HCL 250 MG, VANCOMYCIN HCL 1 G in NS 250 ML IV 250 ML IV NR (14:00)
[2019-08-03] MEDS: NORVASC TAB 10 MG PO SCH (14:50)
[2019-08-03] MEDS: PLAVIX PO SCH (14:50)
[2019-08-03] MEDS ORDERED: GLUTOSE 15 GEL ORAL PO ONE (17:21)
[2019-08-03] MEDS ORDERED: GLUTOSE 15 GEL ORAL PO PRN (17:25)
[2019-08-03] MEDS: LOVENOX INJ 30 MG SYR SC SCH (17:32)
[2019-08-03] MEDS: XALATAN OP SCH (20:54)
[2019-08-03] MEDS: COLACE CAP 100 MG PO SCH (20:54)
[2019-08-03] MEDS: APRESOLINE TAB 25 MG PO SCH (20:55)
[2019-08-03] MEDS: COREG TAB 3.125 MG PO SCH (20:56)
[2019-08-03] MEDS ORDERED: DIAMOX PO SCH (21:00)
[2019-08-03] MEDS: COSOPT OPTH OP SCH (21:11)
[2019-08-04 05:20] LABS: BASOPHILS # (AUTO) 0.1 X10^3/uL (0.0-0.1); BASOPHILS % (AUTO) 0.6 % (0.2-1.0); EOSINOPHILS # (AUTO) 0.3 x10^3/uL (0.0-0.2); EOSINOPHILS % (AUTO) 3.6 % (0.9-2.9); HEMATOCRIT 28.2 % (36.0-47.0); HEMOGLOBIN 9.3 g/dL (12.0-16.0); LYMPHOCYTES % (AUTO) 36.1 % (21.0-51.0); MEAN CORPUSCULAR HEMOGLOBIN 29.3 pg (27.0-34.0); MEAN CORPUSCULAR HGB CONC 32.9 g/dL (33.0-35.0); MEAN CORPUSCULAR VOLUME 88.8 fL (80.0-100.0); MEAN PLATELET VOLUME 8.5 fL (7.4-11.0); MONOCYTES # (AUTO) 0.6 x10^3/uL (0.3-0.8); MONOCYTES % (AUTO) 7.6 % (0.0-13.0); NEUTROPHILS # (AUTO) 4.3 x10^3/uL (2.2-4.8); NEUTROPHILS % (AUTO) 52.1 % (42.0-75.0); PLATELET COUNT 247 X10^3/uL (150.0-450.0); RED BLOOD COUNT 3.17 X10^6/uL (3.5-5.4); RED CELL DISTRIBUTION WIDTH 13.5 % (11.6-16.5); WHITE BLOOD COUNT 8.3 X10^3/uL (3.6-10.0)
[2019-08-04] MEDS ORDERED: PHARMACY COMMENT IV NR (05:30)
[2019-08-04 05:45] LABS: ALANINE AMINOTRANSFERASE 21 Units/L (12-78); ALBUMIN 2.7 g/dL (3.4-5.0); ALKALINE PHOSPHATASE 103 Units/L (46-116); ASPARTATE AMINO TRANSFERASE 19 Units/L (15-37); BLOOD UREA NITROGEN 45 mg/dL (7-18); CALCIUM 8.3 mg/dL (8.5-10.1); CARBON DIOXIDE 22.2 mmol/L (21-32); CHLORIDE 107 mmol/L (98-107); COR CA(FOR HYPOALB) 9.3 mg/dL (8.5-10.1); CREATININE 2.28 mg/dL (0.55-1.02); SODIUM 138 mmol/L (136-145); TOTAL PROTEIN 6.2 g/dL (6.4-8.2); eGFR NON BLACK RACES 26 (>60)
[2019-08-04 05:46] LABS: VANCOMYCIN,TROUGH 14.3 ug/mL (15-20)
[2019-08-04] MEDS: DILAUDID INJ IVP PRN ×3 (06:00→17:57)
[2019-08-04] MEDS: MILK OF MAGNESIA PO SCH ×2 (08:47→21:12)
[2019-08-04] MEDS: LOVENOX INJ 30 MG SYR SC SCH (08:48)
[2019-08-04] MEDS: NORVASC TAB 10 MG PO SCH (08:48)
[2019-08-04] MEDS: PLAVIX PO SCH (08:48)
[2019-08-04] MEDS: PROTONIX INJ 40 MG VIAL IVP SCH ×2 (08:48→21:13)
[2019-08-04] MEDS: COREG TAB 3.125 MG PO SCH ×2 (08:48→21:11)
[2019-08-04] MEDS: APRESOLINE TAB 25 MG PO SCH ×2 (08:48→21:11)
[2019-08-04] MEDS: COSOPT OPTH OP SCH ×2 (08:53→21:13)
[2019-08-04] MEDS ORDERED: VANCOMYCIN HCL 250 MG, VANCOMYCIN HCL 1 G in NS 250 ML IV 250 ML IV SCH (09:00)
[2019-08-04] MEDS: CARAFATE PO SCH ×2 (17:57→21:11)
[2019-08-04] MEDS: COLACE CAP 100 MG PO SCH (21:11)
[2019-08-04] MEDS: XALATAN OP SCH (21:12)
[2019-08-04] MEDS: NS + KCL 40 MEQ/L 1,000 ML IV SCH (21:14)
[2019-08-05] MEDS: DILAUDID INJ IVP PRN ×2 (00:10→08:55)
[2019-08-05] MEDS: NS + KCL 40 MEQ/L 1,000 ML IV SCH (03:00)
[2019-08-05] MEDS: CARAFATE PO SCH ×2 (05:52→11:41)
[2019-08-05 06:03] LABS: BASOPHILS % (AUTO) 0.4 % (0.2-1.0); EOSINOPHILS # (AUTO) 0.2 x10^3/uL (0.0-0.2); EOSINOPHILS % (AUTO) 2.7 % (0.9-2.9); HEMATOCRIT 27.6 % (36.0-47.0); HEMOGLOBIN 9.1 g/dL (12.0-16.0); LYMPHOCYTES # (AUTO) 2.9 X10^3/uL (1.3-2.9); LYMPHOCYTES % (AUTO) 38.7 % (21.0-51.0); MEAN CORPUSCULAR HEMOGLOBIN 29.3 pg (27.0-34.0); MEAN CORPUSCULAR HGB CONC 32.8 g/dL (33.0-35.0); MEAN CORPUSCULAR VOLUME 89.2 fL (80.0-100.0); MONOCYTES # (AUTO) 0.5 x10^3/uL (0.3-0.8); MONOCYTES % (AUTO) 6.8 % (0.0-13.0); NEUTROPHILS # (AUTO) 3.8 x10^3/uL (2.2-4.8); NEUTROPHILS % (AUTO) 51.4 % (42.0-75.0); PLATELET COUNT 229 X10^3/uL (150.0-450.0); RED CELL DISTRIBUTION WIDTH 13.5 % (11.6-16.5); WHITE BLOOD COUNT 7.4 X10^3/uL (3.6-10.0)
[2019-08-05 06:20] LABS: ALANINE AMINOTRANSFERASE 20 Units/L (12-78); ALBUMIN 2.6 g/dL (3.4-5.0); ALKALINE PHOSPHATASE 95 Units/L (46-116); ASPARTATE AMINO TRANSFERASE 18 Units/L (15-37); BLOOD UREA NITROGEN 33 mg/dL (7-18); CALCIUM 8.3 mg/dL (8.5-10.1); CARBON DIOXIDE 24.8 mmol/L (21-32); CHLORIDE 104 mmol/L (98-107); COR CA(FOR HYPOALB) 9.4 mg/dL (8.5-10.1); CREATININE 1.77 mg/dL (0.55-1.02); SODIUM 136 mmol/L (136-145); TOTAL PROTEIN 6.1 g/dL (6.4-8.2); eGFR NON BLACK RACES 35 (>60)
[2019-08-05] MEDS: COREG TAB 3.125 MG PO SCH (08:54)
[2019-08-05] MEDS: NORVASC TAB 10 MG PO SCH (08:54)
[2019-08-05] MEDS: APRESOLINE TAB 25 MG PO SCH (08:54)
[2019-08-05] MEDS: LOVENOX INJ 30 MG SYR SC SCH (08:54)
[2019-08-05] MEDS: PROTONIX INJ 40 MG VIAL IVP SCH (08:55)
[2019-08-05] MEDS: MILK OF MAGNESIA PO SCH (08:55)
[2019-08-05] MEDS: PLAVIX PO SCH (08:55)
[2019-08-05] MEDS: COSOPT OPTH OP SCH (08:56)
[2019-08-05 12:22] VITALS: BP 128/73
[2019-08-06] MEDS ORDERED: PHARMACY COMMENT IV NR (08:30)
== END 2019-08-05 14:35 | disposition home or self-care (01) | DRG 684 ==
LOC: MED/SURG → OBSVTOIN 16:35 → MED/SURG 08-03 11:25
PROVIDERS: ADMIT Internal Medicine; ATTEND Internal Medicine
CPT/HCPCS: 36415; 72148; 74022; 80053; 80202; 81001; 82150; 82565; 83690; 83735; 85025; 85652; 86140; 87040; 87086; 97110; 97163; A4222; C9113; J1170; J1200; J1650; J2060; J2405; J2550; J2765; J3370; J7030; J7050

== ENCOUNTER 2019-08-10 12:41 | Observation (INO) ==
[2019-08-10] MEDS ORDERED: REGLAN INJ 10 MG VIAL IVP PRN (13:21)
[2019-08-10] MEDS ORDERED: ZOFRAN INJ 4 MG VIAL IVP PRN (13:21)
[2019-08-10] MEDS ORDERED: PHENERGAN INJ 25 MG IM PRN (13:21)
[2019-08-10] MEDS ORDERED: ATIVAN INJ 2 MG VIAL IVP ONE (13:23)
[2019-08-10] MEDS ORDERED: DILAUDID INJ IVP ONE (13:23)
[2019-08-10 14:12] LABS: BASOPHILS # (AUTO) 0.1 X10^3/uL (0.0-0.1); BASOPHILS % (AUTO) 0.7 % (0.2-1.0); EOSINOPHILS # (AUTO) 0.1 x10^3/uL (0.0-0.2); EOSINOPHILS % (AUTO) 1.4 % (0.9-2.9); HEMATOCRIT 35.5 % (36.0-47.0); HEMOGLOBIN 11.5 g/dL (12.0-16.0); LYMPHOCYTES # (AUTO) 1.9 X10^3/uL (1.3-2.9); LYMPHOCYTES % (AUTO) 20.8 % (21.0-51.0); MEAN CORPUSCULAR HEMOGLOBIN 29.4 pg (27.0-34.0); MEAN CORPUSCULAR HGB CONC 32.5 g/dL (33.0-35.0); MEAN CORPUSCULAR VOLUME 90.5 fL (80.0-100.0); MEAN PLATELET VOLUME 9.3 fL (7.4-11.0); MONOCYTES # (AUTO) 0.4 x10^3/uL (0.3-0.8); MONOCYTES % (AUTO) 4.6 % (0.0-13.0); NEUTROPHILS # (AUTO) 6.8 x10^3/uL (2.2-4.8); NEUTROPHILS % (AUTO) 72.5 % (42.0-75.0); PLATELET COUNT 281 X10^3/uL (150.0-450.0); RED BLOOD COUNT 3.93 X10^6/uL (3.5-5.4); WHITE BLOOD COUNT 9.3 X10^3/uL (3.6-10.0)
[2019-08-10 14:22] LABS: ALANINE AMINOTRANSFERASE 23 Units/L (12-78); ALBUMIN 3.5 g/dL (3.4-5.0); ALKALINE PHOSPHATASE 130 Units/L (46-116); AMYLASE 107 Units/L (25-115); ASPARTATE AMINO TRANSFERASE 13 Units/L (15-37); BLOOD UREA NITROGEN 30 mg/dL (7-18); CALCIUM 9.7 mg/dL (8.5-10.1); CARBON DIOXIDE 19.7 mmol/L (21-32); CHLORIDE 108 mmol/L (98-107); COR NA(FOR HYPERGLY) 144 mmol/L (136-145); CREATININE 1.96 mg/dL (0.55-1.02); LIPASE 329 Units/L (73-393); SODIUM 142 mmol/L (136-145); eGFR NON BLACK RACES 31 (>60)
[2019-08-10] MEDS: PROTONIX INJ 40 MG VIAL IVP SCH ×2 (14:25→20:54)
[2019-08-10] MEDS: NS 1000 ML 1,000 ML IV SCH (14:25)
[2019-08-10 14:30] LABS: FREE T4 (FREE THYROXINE) 1.14 ng/dL (0.76-1.46); TSH (3RD GENERATION) 0.127 uIU/mL (0.358-3.74)
[2019-08-10] MEDS ORDERED: MAGNESIUM SULFATE 1 GRAM/100 mL PREMIX 1 GM/100 ML BAG IV PRN (14:40)
--- NOTE | 2019-08-10 14:50 | DR.H&P ---
H&P - History & Physical for Day of: H&P Date: 08/10/19 - Chief Complaint Chief Complaint: intractable nausea vomiting and abdominal pain - History of Present Illness History of Present Illness: the patient is a 33-year-old white female who pr esents to the IM with 24 hour history of severe abdominal pain with nausea and vomiting. States she's not able to keep anything down. States that she has tried taking anti-emetics with no improvement of symptoms. Patient does have history of gastroparesis. Was recently admitted secondary to similar symptoms and found to have acute on chronic kidney failure. Patient denies fever, upper respiratory symptoms including, or dysuria. - Past Medical History Past Medical History: Coronary Artery Disease, Hypertension, Diabetes, Renal Disease Additional Medical History: MORBID OBESITY - Past Surgical History Surgical History: Cholecystectomy, Ortho Surgery - Family History Family Medical History: Diabetes Mellitus, Hypertension - Social History Does patient currently use any type of tobacco product: No Have you used tobacco products in the last 12 months: No Type of Tobacco Use: None Does any household member use tobacco: No Alcohol Use: None Risks, benefits, and alternatives of opioids discussed: Yes Prescription drug monitoring program results: PDMP reviewed and no concerns identified - Medications Home Medications: latex Allergy (Verified 08/10/19 14:05) Penicillins Allergy (Verified 12/10/17 14:38) ceftazidime [From Fortaz] Adverse Reaction (Verified 12/10/17 14:38) - Review of Systems Constitutional: Malaise Eyes: No Symptoms Reported ENT: No Symptoms Reported Respiratory: No Symptoms Reported Cardiovascular: No Symptoms Reported Gastrointestinal: See HPI, Nausea, Vomiting, Abdominal Pain Genitourinary: No Symptoms Reported Musculoskeletal: No Symptoms Reported Skin: No Symptoms Reported Neurological: No Symptoms Reported - Physical Exam Vital Signs: Respiratory Rate 18 Blood Pressure [Right Arm] 130/67 Blood Pressure [Left Arm] 128/73 Oriented: Normal Eyes: Normal Ear: Normal Nose: Normal Throat: Normal Respiratory: Clear Throughout Cardiovascular: Tachycardia : Normal Auscultation: Bowel Sounds: Normal Palpation: Normal Tenderness: Diffuse Skin: Normal Musculoskeletal: Normal, Knee (BKA) Psychiatric: Anxiety Mood Description: Anxious (crying) Affect: Anxious Speech Pattern: Clear - Assessment/Plan (1) Abdominal pain Qualifiers: Abdominal location: generalized Qualified Code(s): R10.84 - Generalized abdominal pain Status: Acute Plan: KUB, anti-emetics, labs, pain control (2) Nausea & vomiting Status: Acute Plan: anti-emetics (3) CKD (chronic kidney disease) stage 4, GFR 15-29 ml/min Status: Chronic Plan: IV hydration, labs (4) Diabetes mellitus Qualifiers: Diabetes mellitus type: type 1 Diabetes mellitus complication status: with kidney complications Diabetes mellitus complication detail: with chronic kidney disease Chronic kidney disease stage: stage 4 (severe) Qualified Code(s): E10.22 - Type 1 diabetes mellitus with diabetic chronic kidney disease; N18.4 - Chronic kidney disease, stage 4 (severe) Status: Chronic Plan: monitor blood sugars, insulin as needed for sliding scale coverage - Review H&P Reviewed: Yes Patient was examined?: Yes - Allergies Allergies/Adverse Reactions: Allergies Allergy/AdvReac Type Severity Reaction Status Date / Time latex Allergy Verified 08/10/19 14:05 Penicillins Allergy Verified 12/10/17 14:38 ceftazidime [From Fortaz] AdvReac Verified 12/10/17 14:38
[2019-08-10 14:51] LABS: IRON 45 ug/dL (50-175)
--- NOTE | 2019-08-10 15:39 | RAD ---
HISTORYABD PAIN, NAUSEA, VOMITING GB, BKA (LEFT, HTN, DMSTUDYACUTE ABDOMEN [id number]-sided life port is again seen inserted via a subclavian appr [facility]. The catheter tip is in the lower SVC. Trachea is midline. Heart size is normal. Lungs and pleur al spaces are clear. Osseous structures are intact.Evaluation of the abdomen demonstrates a moderate amount of stool present throughout the colon. No evidence of bowel obstruction or perforation is seen . There is no evidence of free intraperitoneal air or fluid. There are surgical clips from cholecyste ctomy. No pathological soft tissue mass or calcification can be observed. The bony structures are gr ossly intact.IMPRESSIONNo acute cardiopulmonary disease.Moderate stool throughout the colon. No evide nce of bowel obstruction or perforation is seen.Electronically signed by: RYLEY MAK (Aug 10, 2019 1 5:38:20)
[2019-08-10 17:41] LABS: BILIRUBIN,URINE NEGATIVE (NEGATIVE); BLOOD/HEMOGLOBIN,URINE 1+ (NEGATIVE); GLUCOSE, URINE NEGATIVE (NEGATIVE); KETONES,URINE NEGATIVE (NEGATIVE); LEUKOCYTE ESTERASE ,URINE 1+ (NEGATIVE); NITRITES,URINE NEGATIVE (NEGATIVE); PROTEIN,URINE 3+ (NEGATIVE); UROBILINOGEN,URINE NORMAL (NORMAL)
[2019-08-10 17:51] LABS: APPEARANCE,URINE SLIGHTLY HAZY (CLEAR); COLOR,URINE YELLOW (YELLOW)
[2019-08-10 17:52] LABS: BACTERIA,URINE NEGATIVE /HPF (NEGATIVE); SQUAMOUS EPITHELIAL CELL,UR FEW /HPF (NEGATIVE); YEAST,URINE FEW /HPF (NEGATIVE)
[2019-08-10 18:07] LABS: GASTRIC OCCULT BLOOD NEGATIVE (NEGATIVE); PH,GASTRIC FLUID 4
[2019-08-10] MEDS: PERCOCET TAB 5/325 MG PO PRN (18:34)
[2019-08-10] MEDS ORDERED: HumuLIN R SUBCUT PRN (19:42)
[2019-08-10] MEDS: DILAUDID INJ IVP PRN (20:02)
[2019-08-10] MEDS: MILK OF MAGNESIA PO SCH (20:53)
[2019-08-10] MEDS ORDERED: COLACE CAP 100 MG PO SCH (21:00)
[2019-08-10] MEDS ORDERED: MAALOX or MYLANTA PO PRN (22:52)
[2019-08-11] MEDS: PERCOCET TAB 5/325 MG PO PRN ×2 (00:30→07:44)
[2019-08-11] MEDS: NS 1000 ML 1,000 ML IV SCH ×3 (02:04→11:09)
[2019-08-11] MEDS: DILAUDID INJ IVP PRN (02:12)
[2019-08-11 07:28] LABS: BASOPHILS # (AUTO) 0.1 X10^3/uL (0.0-0.1); BASOPHILS % (AUTO) 0.9 % (0.2-1.0); EOSINOPHILS # (AUTO) 0.3 x10^3/uL (0.0-0.2); EOSINOPHILS % (AUTO) 2.8 % (0.9-2.9); HEMOGLOBIN 10.4 g/dL (12.0-16.0); LYMPHOCYTES # (AUTO) 3.8 X10^3/uL (1.3-2.9); LYMPHOCYTES % (AUTO) 39.9 % (21.0-51.0); MEAN CORPUSCULAR HGB CONC 32.5 g/dL (33.0-35.0); MEAN CORPUSCULAR VOLUME 89.4 fL (80.0-100.0); MEAN PLATELET VOLUME 8.5 fL (7.4-11.0); MONOCYTES # (AUTO) 0.7 x10^3/uL (0.3-0.8); MONOCYTES % (AUTO) 7.8 % (0.0-13.0); NEUTROPHILS # (AUTO) 4.6 x10^3/uL (2.2-4.8); NEUTROPHILS % (AUTO) 48.6 % (42.0-75.0); PLATELET COUNT 245 X10^3/uL (150.0-450.0); RED BLOOD COUNT 3.58 X10^6/uL (3.5-5.4); RED CELL DISTRIBUTION WIDTH 14.1 % (11.6-16.5); WHITE BLOOD COUNT 9.4 X10^3/uL (3.6-10.0)
[2019-08-11 07:35] LABS: ALANINE AMINOTRANSFERASE 22 Units/L (12-78); ALBUMIN 3.1 g/dL (3.4-5.0); ALKALINE PHOSPHATASE 113 Units/L (46-116); ASPARTATE AMINO TRANSFERASE 17 Units/L (15-37); BLOOD UREA NITROGEN 27 mg/dL (7-18); CALCIUM 8.8 mg/dL (8.5-10.1); CARBON DIOXIDE 22.4 mmol/L (21-32); CHLORIDE 104 mmol/L (98-107); COR CA(FOR HYPOALB) 9.5 mg/dL (8.5-10.1); CREATININE 1.92 mg/dL (0.55-1.02); SODIUM 137 mmol/L (136-145); TOTAL PROTEIN 7.1 g/dL (6.4-8.2); eGFR NON BLACK RACES 32 (>60)
[2019-08-11] MEDS: MILK OF MAGNESIA PO SCH ×2 (09:27→09:40)
[2019-08-11] MEDS ORDERED: PEPCID 20 MG IV PREMIX* 20 MG/50 ML BAG IV SCH (10:00)
[2019-08-11] MEDS ORDERED: MIRALAX POWDER (1 DOSE 17 G) PO STA (11:45)
[2019-08-11] MEDS ORDERED: LEVSIN/MAALOX/LIDOC VISC PO SCH (13:00)
--- NOTE | 2019-08-11 13:08 | RAD ---
Exam:KUBIndication: S/P ENEMA LG COLLECTION OF STOOLComparison: [None available]Findings: [The bowel gas pattern is unremarkable, specifically there is no radiographic evidence to suggest an obstruction. No free air or pneumatosis.No definite mass or abnormal calcification within the abdomen or pelvis.No acute osseous abnormality. Previous cholecystectomy.Impression:No acute radiographic abnormality within the abdomen or pelvis.]Electronically signed by: MONTEZ GASTELUM (Aug 11, 2019 13:07:10)
[2019-08-11 16:07] VITALS: BP 183/77
== END 2019-08-11 16:50 | disposition home or self-care (01) ==
LOC: MED/SURG
PROVIDERS: ADMIT Internal Medicine; ATTEND Internal Medicine
DX: E10.65 Type 1 diabetes mellitus with hyperglycemia; N18.4 Chronic kidney disease, stage 4 (severe); Z79.899 Other long term (current) drug therapy; I25.10 Atherosclerotic heart disease of native coronary artery without angina pectoris; R11.2 Nausea with vomiting, unspecified; I12.9 Hypertensive chronic kidney disease with stage 1 through stage 4 chronic kidney disease, or unspecified chronic kidney disease; R10.84 Generalized abdominal pain; E10.22 Type 1 diabetes mellitus with diabetic chronic kidney disease
CPT/HCPCS: 36415; 74000; 74018; 74022; 80053; 81001; 82150; 82271; 82607; 82728; 82746; 83540; 83690; 83735; 84439; 84443; 84466; 85025; 96360; 96361; 96372; 96374; A4222; C9113; G0378; J1170; J1642; J2060; J2405; J2550; J3475; J7030; S0028

== ENCOUNTER 2019-09-19 11:56 | Inpatient (IN) ==
[2019-09-19] MEDS ORDERED: PEPCID 20 MG IV PREMIX* 20 MG/50 ML BAG IV PRN ×2 (12:25→17:00)
[2019-09-19] MEDS ORDERED: HumuLIN R SUBCUT PRN (12:28)
--- NOTE | 2019-09-19 12:39 | DR.H&P ---
H&P - History & Physical for Day of: H&P Date: 09/19/19 - Chief Complaint Chief Complaint: Nausea/Vomiting/Abdominal pain - History of Present Illness History of Present Illness: The patient is a 34yo BF who presents to [facility] with 3 day history of nausea, vomiting and abdominal pain. States she is unable to keep anything down. States she has been several weeks since she was admitted with same symptoms. Does have DM and gastroparesis. Denies fever, diarrhea or any other symptoms. - Past Medical History Past Medical History: Coronary Artery Disease, Hypertension, Diabetes, Renal Disease Additional Medical History: MORBID OBESITY - Past Surgical History Surgical History: Cholecystectomy, Ortho Surgery - Family History Family Medical History: Diabetes Mellitus, Hypertension - Social History Does patient currently use any type of tobacco product: No Have you used tobacco products in the last 12 months: No Type of Tobacco Use: None Does any household member use tobacco: No Alcohol Use: None Drug Use: None Risks, benefits, and alternatives of opioids discussed: Yes Prescription drug monitoring program results: PDMP reviewed and no concerns identified - Medications Home Medications: latex Allergy (Verified 08/21/19 15:40) Penicillins Allergy (Verified 08/21/19 15:40) ceftazidime [From Fortaz] Adverse Reaction (Verified 08/21/19 15:40) - Review of Systems Constitutional: See HPI, Malaise Eyes: No Symptoms Reported ENT: No Symptoms Reported Respiratory: No Symptoms Reported Cardiovascular: No Symptoms Reported Gastrointestinal: Nausea, Vomiting, Abdominal Pain Genitourinary: No Symptoms Reported Musculoskeletal: No Symptoms Reported Skin: No Symptoms Reported Neurological: No Symptoms Reported - Physical Exam Vital Signs: Blood Pressure [Right Arm] 118/77 Blood Pressure [Left Arm] 128/73 Blood Pressure 180/105 Oriented: Normal Eyes: Normal Ear: Normal Nose: Normal Throat: Normal Respiratory: Clear Throughout Cardiovascular: Normal : Normal Auscultation: Bowel Sounds: Normal Palpation: Normal Tenderness: Diffuse, Epigastric Skin: Decreased Turgur Musculoskeletal: Normal Mood Description: Flat (crying) Affect: Flat (crying) Speech Pattern: Clear - Assessment/Plan (1) Abdominal pain Qualifiers: Abdominal location: generalized Qualified Code(s): R10.84 - Generalized abdominal pain Status: Acute Plan: Abdominal xray (2) Gastroparesis Status: Acute Plan: Labs, IV hydration, Pepcid IV, Anti-emetics (3) Nausea & vomiting Status: Acute Plan: Labs, IV hydration, Pepcid IV, Anti-emetics (4) Diabetes mellitus Qualifiers: Diabetes mellitus type: type 1 Diabetes mellitus complication status: with kidney complications Diabetes mellitus complication detail: with chronic kidney disease Chronic kidney disease stage: stage 4 (severe) Qualified Code(s): E10.22 - Type 1 diabetes mellitus with diabetic chronic kidney disease; N18.4 - Chronic kidney disease, stage 4 (severe) Status: Chronic Plan: Monitor BS and provide ssri coverage (5) Chronic kidney disease (CKD) Status: Chronic Plan: labs, iv hydration - Allergies Allergies/Adverse Reactions: Allergies Allergy/AdvReac Type Severity Reaction Status Date / Time latex Allergy Verified 08/21/19 15:40 Penicillins Allergy Verified 08/21/19 15:40 ceftazidime [From Fortaz] AdvReac Verified 08/21/19 15:40
[2019-09-19] MEDS: ZOFRAN INJ 4 MG VIAL IVP PRN ×2 (13:30→22:00)
[2019-09-19 13:37] LABS: BASOPHILS % (AUTO) 0.2 % (0.2-1.0); HEMATOCRIT 34.8 % (36.0-47.0); HEMOGLOBIN 11.1 g/dL (12.0-16.0); LYMPHOCYTES # (AUTO) 2.5 X10^3/uL (1.3-2.9); LYMPHOCYTES % (AUTO) 16.6 % (21.0-51.0); MEAN CORPUSCULAR HEMOGLOBIN 28.3 pg (27.0-34.0); MEAN CORPUSCULAR VOLUME 88.2 fL (80.0-100.0); MEAN PLATELET VOLUME 8.9 fL (7.4-11.0); MONOCYTES # (AUTO) 0.6 x10^3/uL (0.3-0.8); MONOCYTES % (AUTO) 3.9 % (0.0-13.0); NEUTROPHILS # (AUTO) 12.1 x10^3/uL (2.2-4.8); NEUTROPHILS % (AUTO) 79.3 % (42.0-75.0); PLATELET COUNT 374 X10^3/uL (150.0-450.0); RED BLOOD COUNT 3.94 X10^6/uL (3.5-5.4); RED CELL DISTRIBUTION WIDTH 14.5 % (11.6-16.5); WHITE BLOOD COUNT 15.3 X10^3/uL (3.6-10.0)
[2019-09-19] MEDS: NS 1000 ML 1,000 ML IV SCH ×2 (13:37→22:12)
[2019-09-19] MEDS: DILAUDID INJ IVP PRN ×3 (13:38→22:00)
[2019-09-19 13:45] LABS: ALANINE AMINOTRANSFERASE 22 Units/L (12-78); ALBUMIN 3.9 g/dL (3.4-5.0); ALKALINE PHOSPHATASE 120 Units/L (46-116); AMYLASE 103 Units/L (25-115); ASPARTATE AMINO TRANSFERASE 14 Units/L (15-37); BLOOD UREA NITROGEN 29 mg/dL (7-18); CALCIUM 10.1 mg/dL (8.5-10.1); CARBON DIOXIDE 20.9 mmol/L (21-32); CHLORIDE 108 mmol/L (98-107); COR NA(FOR HYPERGLY) 148 mmol/L (136-145); CREATININE 2.06 mg/dL (0.55-1.02); LIPASE 288 Units/L (73-393); SODIUM 145 mmol/L (136-145); TOTAL PROTEIN 8.7 g/dL (6.4-8.2); eGFR NON BLACK RACES 29 (>60)
--- NOTE | 2019-09-19 14:15 | RAD ---
HISTORYABD PAINSTUDYACUTE ABDOMEN SERIES, one view x-ray chest and two view abdomenCOMPARISONX-ray 09/15/2019FINDINGSHeart is normal in size. No pneumothorax, focal infiltrate, or pleural effusion is seen. Port catheter terminates in the region of the mid SVC, unchanged.No free intraperitoneal air is seen. No suggestion of small-bowel obstruction. Mild retained fecal material is probably within normal limits but could be mild constipation. Stable phleboliths are seen in the right-side of the pelvis.IMPRESSIONPossible possible mild constipation but amount of retained fecal material may be within normal limits.No acute chest abnormalities are seen.Electronically signed by: Renan Adame (September 19, 2019 14:13:06)
[2019-09-19 14:48] VITALS: BMI 34.2
[2019-09-19 14:49] LABS: BILIRUBIN,URINE NEGATIVE (NEGATIVE); BLOOD/HEMOGLOBIN,URINE 1+ (NEGATIVE); GLUCOSE, URINE NEGATIVE (NEGATIVE); KETONES,URINE NEGATIVE (NEGATIVE); LEUKOCYTE ESTERASE ,URINE NEGATIVE (NEGATIVE); NITRITES,URINE NEGATIVE (NEGATIVE); PROTEIN,URINE 3+ (NEGATIVE); UROBILINOGEN,URINE NORMAL (NORMAL)
[2019-09-19 14:50] LABS: APPEARANCE,URINE CLEAR (CLEAR); COLOR,URINE YELLOW (YELLOW)
[2019-09-19 15:01] LABS: BACTERIA,URINE TRACE /HPF (NEGATIVE); MUCUS,URINE FEW /HPF (NEGATIVE); SQUAMOUS EPITHELIAL CELL,UR RARE /HPF (NEGATIVE)
[2019-09-19] MEDS: PHENERGAN INJ 25 MG IM PRN (16:36)
[2019-09-19] MEDS ORDERED: K-DUR TAB 20 MEQ PO ONE (17:43)
[2019-09-19] MEDS: ZITHROMAX INJ 500 MG VIAL 500 MG in NS 250 ML IV 250 ML IV SCH (18:01)
[2019-09-19] MEDS ORDERED: SNACK - Diabetic Appropriate PO SCH (20:00)
[2019-09-19] MEDS: MIRALAX POWDER (1 DOSE 17 G) PO SCH (20:00)
[2019-09-20] MEDS ORDERED: MAALOX or MYLANTA PO PRN (00:30)
[2019-09-20] MEDS ORDERED: ULTRAM ONE (00:35)
[2019-09-20] MEDS ORDERED: MAALOX or MYLANTA ONE (00:35)
[2019-09-20] MEDS: ULTRAM PO PRN ×2 (00:40→02:40)
[2019-09-20] MEDS: NS 1000 ML 1,000 ML IV SCH ×2 (02:09→12:41)
[2019-09-20] MEDS: DILAUDID INJ IVP PRN ×5 (02:10→23:30)
[2019-09-20 05:10] LABS: BASOPHILS # (AUTO) 0.1 X10^3/uL (0.0-0.1); BASOPHILS % (AUTO) 0.4 % (0.2-1.0); EOSINOPHILS # (AUTO) 0.4 x10^3/uL (0.0-0.2); EOSINOPHILS % (AUTO) 2.2 % (0.9-2.9); HEMATOCRIT 30.1 % (36.0-47.0); HEMOGLOBIN 9.6 g/dL (12.0-16.0); LYMPHOCYTES # (AUTO) 5.4 X10^3/uL (1.3-2.9); MEAN CORPUSCULAR HEMOGLOBIN 28.5 pg (27.0-34.0); MEAN CORPUSCULAR HGB CONC 31.9 g/dL (33.0-35.0); MEAN CORPUSCULAR VOLUME 89.4 fL (80.0-100.0); MEAN PLATELET VOLUME 9.4 fL (7.4-11.0); MONOCYTES # (AUTO) 1.4 x10^3/uL (0.3-0.8); MONOCYTES % (AUTO) 7.8 % (0.0-13.0); NEUTROPHILS # (AUTO) 10.7 x10^3/uL (2.2-4.8); NEUTROPHILS % (AUTO) 59.6 % (42.0-75.0); PLATELET COUNT 284 X10^3/uL (150.0-450.0); RED BLOOD COUNT 3.37 X10^6/uL (3.5-5.4); RED CELL DISTRIBUTION WIDTH 14.4 % (11.6-16.5)
[2019-09-20 05:18] LABS: ALANINE AMINOTRANSFERASE 19 Units/L (12-78); ALBUMIN 3.5 g/dL (3.4-5.0); ALKALINE PHOSPHATASE 97 Units/L (46-116); ASPARTATE AMINO TRANSFERASE 15 Units/L (15-37); BLOOD UREA NITROGEN 28 mg/dL (7-18); CARBON DIOXIDE 22.1 mmol/L (21-32); CHLORIDE 106 mmol/L (98-107); CREATININE 2.01 mg/dL (0.55-1.02); SODIUM 140 mmol/L (136-145); TOTAL PROTEIN 7.5 g/dL (6.4-8.2); eGFR NON BLACK RACES 30 (>60)
[2019-09-20] MEDS ORDERED: K-DUR TAB 20 MEQ PO ONE ×2 (05:50→05:52)
--- NOTE | 2019-09-20 09:40 | RAD ---
HISTORYDiminished lung sounds at both basesSTUDYCHEST, PA/LAT ADULTCOMPARISONPrevious chest radiograph from 09/19/2019FINDINGSRight subclavian line is again seen with the tip extending to the right atrium. Heart size and pulmonary vasculature are normal. Lungs are clear with no infiltrate, pleural effusion, or pneumothorax. Bony thorax is unremarkable.IMPRESSIONNo acute cardiopulmonary abnormality is seen on this examElectronically signed by: MARIUM APODACA (September 20, 2019 09:38:39)
[2019-09-20] MEDS: ZITHROMAX INJ 500 MG VIAL 500 MG in NS 250 ML IV 250 ML IV SCH (09:55)
[2019-09-20] MEDS: NORVASC TAB 10 MG PO SCH (13:26)
[2019-09-20] MEDS: PROTONIX INJ 40 MG VIAL IVP SCH (13:26)
[2019-09-20] MEDS: VIBRAMYCIN PO SCH (20:58)
[2019-09-20] MEDS: COREG TAB 3.125 MG PO SCH (20:58)
[2019-09-20] MEDS: MIRALAX POWDER (1 DOSE 17 G) PO SCH (21:02)
[2019-09-20] MEDS: BENADRYL INJ 50 MG VIAL IVP PRN (22:28)
[2019-09-20] MEDS: ZOFRAN INJ 4 MG VIAL IVP PRN (22:35)
[2019-09-21] MEDS: NS 1000 ML 1,000 ML IV SCH ×6 (00:45→20:30)
[2019-09-21] MEDS: DILAUDID INJ IVP PRN ×5 (03:37→19:50)
[2019-09-21 06:17] LABS: BASOPHILS # (AUTO) 0.1 X10^3/uL (0.0-0.1); BASOPHILS % (AUTO) 0.5 % (0.2-1.0); EOSINOPHILS # (AUTO) 0.4 x10^3/uL (0.0-0.2); EOSINOPHILS % (AUTO) 3.4 % (0.9-2.9); HEMATOCRIT 26.9 % (36.0-47.0); HEMOGLOBIN 8.8 g/dL (12.0-16.0); LYMPHOCYTES # (AUTO) 3.5 X10^3/uL (1.3-2.9); LYMPHOCYTES % (AUTO) 33.8 % (21.0-51.0); MEAN CORPUSCULAR HEMOGLOBIN 29.1 pg (27.0-34.0); MEAN CORPUSCULAR HGB CONC 32.8 g/dL (33.0-35.0); MEAN CORPUSCULAR VOLUME 88.7 fL (80.0-100.0); MEAN PLATELET VOLUME 8.7 fL (7.4-11.0); MONOCYTES # (AUTO) 0.7 x10^3/uL (0.3-0.8); MONOCYTES % (AUTO) 6.9 % (0.0-13.0); NEUTROPHILS # (AUTO) 5.8 x10^3/uL (2.2-4.8); NEUTROPHILS % (AUTO) 55.4 % (42.0-75.0); PLATELET COUNT 227 X10^3/uL (150.0-450.0); RED BLOOD COUNT 3.03 X10^6/uL (3.5-5.4); RED CELL DISTRIBUTION WIDTH 14.5 % (11.6-16.5); WHITE BLOOD COUNT 10.4 X10^3/uL (3.6-10.0)
[2019-09-21 06:32] LABS: ALANINE AMINOTRANSFERASE 24 Units/L (12-78); ALKALINE PHOSPHATASE 93 Units/L (46-116); ASPARTATE AMINO TRANSFERASE 20 Units/L (15-37); BLOOD UREA NITROGEN 17 mg/dL (7-18); CALCIUM 8.7 mg/dL (8.5-10.1); CARBON DIOXIDE 21.1 mmol/L (21-32); CHLORIDE 108 mmol/L (98-107); COR CA(FOR HYPOALB) 9.5 mg/dL (8.5-10.1); CREATININE 1.46 mg/dL (0.55-1.02); SODIUM 139 mmol/L (136-145); TOTAL PROTEIN 6.6 g/dL (6.4-8.2); eGFR NON BLACK RACES 43 (>60)
[2019-09-21] MEDS: BENADRYL INJ 50 MG VIAL IVP PRN ×2 (07:47→15:40)
[2019-09-21] MEDS: ZOFRAN INJ 4 MG VIAL IVP PRN ×2 (07:48→15:41)
[2019-09-21] MEDS: ZITHROMAX INJ 500 MG VIAL 500 MG in NS 250 ML IV 250 ML IV SCH (09:38)
[2019-09-21] MEDS: COREG TAB 3.125 MG PO SCH ×2 (09:39→20:24)
[2019-09-21] MEDS: VIBRAMYCIN PO SCH ×2 (09:39→20:24)
[2019-09-21] MEDS: NORVASC TAB 10 MG PO SCH (09:39)
[2019-09-21] MEDS: PROTONIX INJ 40 MG VIAL IVP SCH (09:39)
[2019-09-21] MEDS: PLAVIX PO SCH (09:41)
[2019-09-21] MEDS: PHENERGAN INJ 25 MG IM PRN (10:34)
[2019-09-21] MEDS: LEVSIN/MAALOX/LIDOC VISC PO SCH ×3 (13:26→20:23)
[2019-09-21] MEDS ORDERED: REGLAN INJ 10 MG VIAL IVP PRN (17:32)
--- NOTE | 2019-09-21 17:37 | PCM.PROG ---
Progress Note - Progress Note for Day of Date of Exam: 09/21/19 - Subjective Subjective: Mrs. Gupta is a 34-year-old black female who was a direct admit from our [place] office with intractable abdominal pain. The patient had an abdominal x-ray on admission showing some constipation. We ordered Miralax and she reported that she did finally have a bowel movement. She was com plaining of increased reflux and indigestion, burning at the top of her stomach along her epigastrium. The patient is currently on P Protonix. She reports that she had good results or relief with Protonix in the past. We also have her on GI cocktail. Pt reports nausea and vomiting during the night and had some improvement this am. Reglan Iv ordered for gastroparesis, which she takes po at home. Pt K 3.6 today. Bun 17, creat 1.46. Plan to advance diet to bland. Discussed possible dc home tomorrow if diet tolerated. - Past Medical Family Social History Past Med/Fam/Surg Hx: No changes since H&P Allergies: Allergies latex Allergy (Verified 08/21/19 15:40) Penicillins Allergy (Verified 08/21/19 15:40) ceftazidime [From Fortaz] Adverse Reaction (Verified 08/21/19 15:40) - Review of Systems ROS: No change since H&P - Vital Signs and I&O's Vital Signs: Temperature 97.6 F Pulse Rate [Left Brachial] 93 Pulse Rate [Right Brachial] 106 Respiratory Rate 20 Blood Pressure [Right Arm] 162/98 Blood Pressure [Left Arm] 157/78 Blood Pressure 180/105 O2 Sat by Pulse Oximetry 97 Intake and Output: Intake & Output 09/19/19 09/20/19 09/21/19 09/22/19 11:59 11:59 11:59 11:59 Intake Total 1580 / 1580 2271 / 2271 1450 / 1450 Output Total 301 / 301 1450 / 1450 Balance 1279 / 1279 2271 / 2271 0 / 0 - Physical Exam Oriented: Normal Eyes: Normal Ear: Normal Nose: Normal Throat: Normal Cardiovascular: Normal : Normal Auscultation: Bowel Sounds: Normal Tenderness: LUQ, Epigastric, Mild Skin: Decreased Turgur Musculoskeletal: Normal, Deformity (rle amputation) Mood Description: Flat (crying) Affect: Flat (crying) Speech Pattern: Clear, Appropriate - Laboratory and Diagnostics Result Diagrams: 09/21/19 05:26 09/21/19 05:26 Labs: Laboratory WBC 10.4 X10^3/uL (3.6-10.0) H 09/21/19 05:26 RBC 3.03 X10^6/uL (3.5-5.4) L 09/21/19 05:26 Hgb 8.8 g/dL (12.0-16.0) L 09/21/19 05:26 Hct 26.9 % (36.0-47.0) L 09/21/19 05:26 MCV 88.7 fL (80.0-100.0) 09/21/19 05:26 MCH 29.1 pg (27.0-34.0) 09/21/19 05:26 MCHC 32.8 g/dL (33.0-35.0) L 09/21/19 05:26 RDW 14.5 % (11.6-16.5) 09/21/19 05:26 Plt Count 227 X10^3/uL (150.0-450.0) 09/21/19 05:26 MPV 8.7 fL (7.4-11.0) 09/21/19 05:26 Neut % (Auto) 55.4 % (42.0-75.0) 09/21/19 05:26 Lymph % (Auto) 33.8 % (21.0-51.0) 09/21/19 05:26 [place] % (Auto) 6.9 % (0.0-13.0) 09/21/19 05:26 Eos % (Auto) 3.4 % (0.9-2.9) H 09/21/19 05:26 Baso % (Auto) 0.5 % (0.2-1.0) 09/21/19 05:26 Neut # (Auto) 5.8 x10^3/uL (2.2-4.8) H 09/21/19 05:26 Lymph # (Auto) 3.5 X10^3/uL (1.3-2.9) H 09/21/19 05:26 [place] # (Auto) 0.7 x10^3/uL (0.3-0.8) 09/21/19 05:26 Eos # (Auto) 0.4 x10^3/uL (0.0-0.2) H 09/21/19 05:26 Baso # (Auto) 0.1 X10^3/uL (0.0-0.1) 09/21/19 05:26 Absolute Nucleated RBC 0.0 /100WBC 09/21/19 05:26 Sodium 139 mmol/L (136-145) 09/21/19 05:26 Corrected Sodium TNP 09/21/19 05:26 Potassium 3.6 mmol/L (3.5-5.1) 09/21/19 05:26 Chloride 108 mmol/L (98-107) H 09/21/19 05:26 Carbon Dioxide 21.1 mmol/L (21-32) 09/21/19 05:26 BUN 17 mg/dL (7-18) 09/21/19 05:26 Creatinine 1.46 mg/dL (0.55-1.02) H 09/21/19 05:26 Est GFR (MDRD) Af Amer 52 (>60) L 09/21/19 05:26 Est GFR (MDRD) Non-Af 43 (>60) L 09/21/19 05:26 Glucose 78 mg/dL (65-99) 09/21/19 05:26 POC Glucose (mg/dL) 80 mg/dL (65-99) 09/21/19 16:38 Calcium 8.7 mg/dL (8.5-10.1) 09/21/19 05:26 Corrected Calcium 9.5 mg/dL (8.5-10.1) 09/21/19 05:26 Magnesium 2.1 mg/dL (1.7-2.9) 09/19/19 13:18 Total Bilirubin 0.20 mg/dL (0.2-1.0) 09/21/19 05:26 AST 20 Units/L (15-37) 09/21/19 05:26 ALT 24 Units/L (12-78) 09/21/19 05:26 Alkaline Phosphatase 93 Units/L (46-116) 09/21/19 05:26 Total Protein 6.6 g/dL (6.4-8.2) 09/21/19 05:26 Albumin 3.0 g/dL (3.4-5.0) L 09/21/19 05:26 Globulin 3.6 g/dL (2.5-4.5) 09/21/19 05:26 Albumin/Globulin Ratio 0.8 Ratio (1.1-2.1) L 09/21/19 05:26 Amylase 103 Units/L (25-115) 09/19/19 13:18 Lipase 288 Units/L (73-393) 09/19/19 13:18 Specimen Type Clean catch urine 09/19/19 14:25 Urine Color Yellow (YELLOW) 09/19/19 14:25 Urine Appearance Clear (CLEAR) 09/19/19 14:25 Urine pH 8.0 (5.0 - 8.0) 09/19/19 14:25 Ur Specific [place] 1.010 (1.000-1.030) 09/19/19 14:25 Urine Protein 3+ (NEGATIVE) 09/19/19 14:25 Urine Glucose (UA) Negative (NEGATIVE) 09/19/19 14:25 Urine Ketones Negative (NEGATIVE) 09/19/19 14:25 Urine Occult Blood 1+ (NEGATIVE) 09/19/19 14:25 Urine Nitrite Negative (NEGATIVE) 09/19/19 14:25 Urine Bilirubin Negative (NEGATIVE) 09/19/19 14:25 Urine Urobilinogen Normal (NORMAL) 09/19/19 14:25 Ur Leukocyte Esterase Negative (NEGATIVE) 09/19/19 14:25 Urine RBC 3-5 /HPF (0-3) A 09/19/19 14:25 Urine WBC 0-2 /HPF (0-5) 09/19/19 14:25 Ur Squamous Epith Cells Rare /HPF (NEGATIVE) 09/19/19 14:25 Urine Bacteria Trace /HPF (NEGATIVE) 09/19/19 14:25 Urine Mucus Few /HPF (NEGATIVE) 09/19/19 14:25 Ur Culture Indicated? No/not indicated 09/19/19 14:25 - Plan (1) Acute gastroenteritis Status: Acute Plan: continue current PPI therapy, GI cocktail. Iv reglan ac and hs. gentle iv hydration, am labs. pain and nausea control. bp monitoring, bs control. advance diet to bland (2) Gastroparesis Status: Acute Plan: Labs, IV hydration, Pepcid IV, Anti-emetics (3) Hypokalemia Status: Acute (4) Chronic kidney disease (CKD) Status: Chronic Plan: labs, iv hydration (5) Diabetic nephropathy Status: Chronic Qualifiers: Diabetes mellitus type: type 1 Qualified Code(s): E10.21 - Type 1 diabetes mellitus with diabetic nephropathy (6) Uncontrolled hypertension Status: Chronic
[2019-09-21] MEDS: MIRALAX POWDER (1 DOSE 17 G) PO SCH (20:23)
[2019-09-22] MEDS: NS 1000 ML 1,000 ML IV SCH ×2 (00:08→14:10)
[2019-09-22] MEDS: DILAUDID INJ IVP PRN ×3 (04:03→08:42)
[2019-09-22 05:45] LABS: BASOPHILS % (AUTO) 0.4 % (0.2-1.0); EOSINOPHILS # (AUTO) 0.3 x10^3/uL (0.0-0.2); EOSINOPHILS % (AUTO) 3.7 % (0.9-2.9); HEMATOCRIT 26.8 % (36.0-47.0); HEMOGLOBIN 8.6 g/dL (12.0-16.0); LYMPHOCYTES # (AUTO) 3.1 X10^3/uL (1.3-2.9); LYMPHOCYTES % (AUTO) 35.4 % (21.0-51.0); MEAN CORPUSCULAR HEMOGLOBIN 28.8 pg (27.0-34.0); MEAN CORPUSCULAR HGB CONC 32.2 g/dL (33.0-35.0); MEAN CORPUSCULAR VOLUME 89.3 fL (80.0-100.0); MONOCYTES # (AUTO) 0.7 x10^3/uL (0.3-0.8); MONOCYTES % (AUTO) 8.1 % (0.0-13.0); NEUTROPHILS # (AUTO) 4.6 x10^3/uL (2.2-4.8); NEUTROPHILS % (AUTO) 52.4 % (42.0-75.0); PLATELET COUNT 215 X10^3/uL (150.0-450.0); RED CELL DISTRIBUTION WIDTH 14.6 % (11.6-16.5); WHITE BLOOD COUNT 8.7 X10^3/uL (3.6-10.0)
[2019-09-22 06:05] LABS: ALANINE AMINOTRANSFERASE 23 Units/L (12-78); ALBUMIN 2.8 g/dL (3.4-5.0); ALKALINE PHOSPHATASE 100 Units/L (46-116); ASPARTATE AMINO TRANSFERASE 18 Units/L (15-37); BLOOD UREA NITROGEN 14 mg/dL (7-18); CALCIUM 8.4 mg/dL (8.5-10.1); CARBON DIOXIDE 22.8 mmol/L (21-32); CHLORIDE 108 mmol/L (98-107); COR CA(FOR HYPOALB) 9.4 mg/dL (8.5-10.1); CREATININE 1.41 mg/dL (0.55-1.02); SODIUM 139 mmol/L (136-145); TOTAL PROTEIN 6.3 g/dL (6.4-8.2); eGFR NON BLACK RACES 45 (>60)
[2019-09-22] MEDS: COREG TAB 3.125 MG PO SCH (08:41)
[2019-09-22] MEDS: LEVSIN/MAALOX/LIDOC VISC PO SCH (08:41)
[2019-09-22] MEDS: NORVASC TAB 10 MG PO SCH (08:42)
[2019-09-22] MEDS: VIBRAMYCIN PO SCH (08:42)
[2019-09-22] MEDS: PROTONIX INJ 40 MG VIAL IVP SCH (08:45)
[2019-09-22] MEDS: ZITHROMAX INJ 500 MG VIAL 500 MG in NS 250 ML IV 250 ML IV SCH (08:45)
[2019-09-22] MEDS: PLAVIX PO SCH (08:45)
[2019-09-22] MEDS: ZOFRAN INJ 4 MG VIAL IVP PRN (08:51)
[2019-09-22] MEDS: BENADRYL INJ 50 MG VIAL IVP PRN (08:51)
[2019-09-22 10:15] VITALS: BP 156/95
== END 2019-09-22 12:30 | disposition home or self-care (01) | DRG 392 ==
LOC: MED/SURG → UNDODISIN 09-22 12:30
PROVIDERS: ADMIT Internal Medicine; ATTEND Internal Medicine
DX: N18.4 Chronic kidney disease, stage 4 (severe); K31.84 Gastroparesis; I25.810 Atherosclerosis of coronary artery bypass graft(s) without angina pectoris; K52.89 Other specified noninfective gastroenteritis and colitis; K59.9 Functional intestinal disorder, unspecified; E10.65 Type 1 diabetes mellitus with hyperglycemia; R10.84 Generalized abdominal pain; R11.2 Nausea with vomiting, unspecified; E10.22 Type 1 diabetes mellitus with diabetic chronic kidney disease; E87.6 Hypokalemia; K29.00 Acute gastritis without bleeding; I12.9 Hypertensive chronic kidney disease with stage 1 through stage 4 chronic kidney disease, or unspecified chronic kidney disease; N17.8 Other acute kidney failure
CPT/HCPCS: 36415; 71020; 71046; 74022; 80053; 81001; 82150; 83690; 83735; 84132; 85025; 97162; 97530; A4216; A4222; C9113; G0378; J0456; J1170; J1200; J1642; J1815; J2405; J2550; J2765; J7030; J7050; S0028

== ENCOUNTER 2019-10-02 08:22 | Observation (INO) ==
[2019-10-02 08:28] VITALS: BMI 30.7
[2019-10-02] MEDS ORDERED: ZOFRAN INJ 4 MG VIAL ONE ×2 (08:40→13:46)
[2019-10-02] MEDS ORDERED: DEMEROL INJ ONE (08:41)
[2019-10-02] MEDS ORDERED: ZOFRAN INJ 4 MG VIAL IVP ONE (08:53)
[2019-10-02] MEDS ORDERED: NS 1000 ML 1,000 ML IV ONE (08:53)
[2019-10-02] MEDS ORDERED: MORPHINE SULFATE INJ 4 MG IVP ONE (08:53)
[2019-10-02] MEDS ORDERED: NS 1000 ML 1,000 ML ONE ×2 (08:54→13:23)
[2019-10-02] MEDS ORDERED: MORPHINE SULFATE INJ 4 MG ONE (08:54)
--- NOTE | 2019-10-02 08:55 | ED.ABDFE ---
HPI Time Seen Time Seen by Provider: 10/02/19 08:52 PCP Primary Care Physician: DR RUDD HPI Comment HPI Comment: PATIENT IS34YR OLS FEMALE WHO HAVE HISTORY OF DIABETES AND DIABETIC GASTROPARESIS IS IN ER WITH PERSISTED NAUSEA AND VOMITING AND GENERALIZED ABDOMINAL PAIN SINCE THURSDAY. PATIENT IS NOT HOLDING DOWN FOOD OR THE FLUID OR MEDICATION. SHE DENIES FEVER, DYSURIA OR RECENT TRAVEL. DENIES CONTACT WITH COVID 19 PATIENT. SHE IS WEAK AND DRAINED OF ENERGY. PAIN IS DIFFUSE SHARP AND CRAMPING RADIATING TO THE BACK AND IS 10,10. NAUSEA MEDICATION NOT HELPING SHE IS NOT KEEPING IT DOWN. Complaint Doctors Chief Complaint Comments: ABDOMINAL PAIN WITH NAUSEA AND VOMITING SINCE THURSDAY. Chief Complaint:: PT C/O GENERALIZED ABDOMINAL PAIN SINCE THURSDAY ASSOCIATED WITH NAUSEA AND VOMITING. Self Treatment fo Chief Complaint: TOOK ZOFRAN AND GI COCKTAIL COVID-19 Coronavirus risk:travel/contact w/high risk person: No Has patient experienced Coronavirus symptoms: No Reviewed Nurses Notes Review: Yes Source History Provided: Patient Mode of arrival Mode of Arrival: Ambulatory Timing Onset of Chief Complaint: 10/02/19 Came on: Suddenly Duration Since Onset: Constant Duration: Days Location Location: Diffuse Severity Severity: Severe Quality Quality: Cramping and Sharp Context History of: Abdominal surgery (CHOLECYSTECTOMY.) Modifying factors Worsening Factors: Nothing Improving Factors: Nothing Associated signs and symptoms Associated Signs and Symptoms: Nausea, Vomiting and Diarrhea Other history Other History: HISTORY DIABETIC GASTROPARESIS. PMH PMH Past Medical History: Yes Past Medical History: Diabetes and Hypertension Past Medical History Comment: GASTROPARESIS Past Surgical History: Yes Surgical History: Cholecystectomy, Ortho Surgery and Other Past Surgical History Comment: LEFT BKA Family History History of Family Medical Conditions: No Family Medical History: Diabetes Mellitus and Hypertension Social History Does patient currently use any type of tobacco product: Yes Have you used tobacco products in the last 12 months: No Type of Tobacco Use: None Does any household member use tobacco: No Alcohol Use: None Do you use any recreational Drugs:: No Lives With: Alone Lives Where: Home Infectious screening In the last 2 months have you had wt loss of >10#?: NO Have you had fever, night sweats or hemotysis?: No Have you traveled outside the country in the last 6 months?: No Isolation: Standard ROS Review of Systems Constitutional: See HPI, Weakness and Fatigue; negative Fever Eyes: No Symptoms Reported and See HPI; negative Blurred Vision and Diplopia ENTM: No Symptoms Reported and See HPI; negative Ear Pain, Nose Discharge, Nose Congestion and Throat Pain Respiratoy: No Symptoms Reported and See HPI; negative Moist Cough, Short of Breath and Wheezing Cardiovascular: No Symptoms Reported and See HPI; negative Chest Pain and Edema Gastrointestinal/Abdominal: See HPI, Abdominal Pain, Nausea and Vomiting Genitourinary: No Symptoms Reported and See HPI; negative Dysuria, Frequency and Hematuria Neurological: See HPI, Headache and Weakness; negative Dizziness Musculoskeletal: See HPI, Back Pain and Muscle Pain Integumentary: No Symptoms Reported and See HPI; negative Change in Color, Rash and Itching Hematologic/Lymphatic: No Symptoms Reported and See HPI; negative Easy Bruising and Swollen Glands Endocrine: No Symptoms Reported, See HPI and Increased Thirst; negative Increased Urine Psychiatric: No Symptoms Reported and See HPI All Other Systems: Reviewed and Negative PE Vital Signs Vitals: Temperature 98.3 F Pulse Rate 105 Respiratory Rate 20 Blood Pressure [Right Arm] 228/107 Blood Pressure [Left Arm] 156/95 Blood Pressure 208/103 O2 Sat by Pulse Oximetry 97 General Limitations: No Limitations General Appearance: Alert and In No Apparent Distress Head Head Exam: Normal Inspection and Atraumatic Eyes Eye exam: Normal Appearance and PERRL; negative Scleral Icterus and Conjunctival Injection ENT ENT Exam: Normal Exam Neck Neck Exam: Normal Inspection and Trachea Midline; negative Tenderness and Lymphadenopathy Chest Chest Inspection: Normal Inspection and Symmetric Chest Wall Rise; negative Tenderness Respiratory Respiratory Exam: Normal Lung Sounds Bilat; negative Accessory Muscle Use, Chest Wall Tenderness and Respiratory Distress Respiratory Exam: Bilateral: Clear to Auscultation Cardiovascular Cardiovascular Exam: Regular Rate, Normal Rhythm and Normal Heart Sounds; negative Systolic Murmur and Diastolic Murmur Abdominal Exam Abdominal Exam: Normal Bowel Sounds, Soft and Tenderness Abdominal Tenderness: Diffuse and Moderate Rectal Rectal Exam: Deferred Back Back Exam: Normal Inspection; negative Tenderness, (R) CVA Tenderness and (L) CVA Tenderness Extremeties Extremities Exam: Normal Inspection and Normal Capillary Refill; negative Tenderness, Edema and Calf Tenderness External Exam: Female: Deferred : Speculum Exam (Female): Deferred : Bimanual Exam (female): Deferred Neurologic Neurological Exam: Alert, Oriented X3 and CN II-XII Intact; negative Motor Sensory Deficit Psychiatric Psychiatric Exam: Normal Affect and Normal Mood Skin Skin Exam: Dry MDM Differential Diagnosis Differential Diagnosis- Considerations may include:: Constipation, Diverticular disease, Gastritus/PUD, Gastroenteritis, Inflammatory BD, Pancreatitis, Urinary tract infection and Urolithiasis COURSE Treatment Treatment: SEE ORDERS. NS 1L IV BOLUS. ZOFRAN 4MG IV AND MORPHIN 4MG IV. PATIENT SAID THERE IS NO RELIEF OF HER SYMPTOMS. DILAUDID 2MG IV AND PHENERGAN 25MG IM SFTER ONE HOUR. PATIENT SAID PAIN IS 9/10 AND STILL NAUSEATED. PATIENT WILL BE ADMITTED FOR FURTHER MANAGEMENT. Reevaluation 1st: Improved and Unchanged 2nd: Improved (SLIGHT, 10/10 TO 9/10.) Consultation Consultation Comments: DISCUSSED PATIENT WITH DR. HOWELL AND SHE WILL ADMIT PATIENT. Education/Counseling Education/Counseling: Patient Educated On: Diagnosis ROR Labs Reviewed Laboratory Results Reviewed?: Yes Result Diagrams: 10/03/19 06:16 10/03/19 06:16 Laboratory: WBC 9.2 X10^3/uL (3.6-10.0) 10/02/19 08:50 RBC 3.67 X10^6/uL (3.5-5.4) 10/02/19 08:50 Hgb 10.5 g/dL (12.0-16.0) L 10/02/19 08:50 Hct 32.7 % (36.0-47.0) L 10/02/19 08:50 MCV 89.3 fL (80.0-100.0) 10/02/19 08:50 MCH 28.6 pg (27.0-34.0) 10/02/19 08:50 MCHC 32.1 g/dL (33.0-35.0) L 10/02/19 08:50 RDW 15.1 % (11.6-16.5) 10/02/19 08:50 Plt Count 285 X10^3/uL (150.0-450.0) 10/02/19 08:50 MPV 9.5 fL (7.4-11.0) 10/02/19 08:50 Neut % (Auto) 72.3 % (42.0-75.0) 10/02/19 08:50 Lymph % (Auto) 20.3 % (21.0-51.0) L 10/02/19 08:50 [place] % (Auto) 4.5 % (0.0-13.0) 10/02/19 08:50 Eos % (Auto) 2.4 % (0.9-2.9) 10/02/19 08:50 Baso % (Auto) 0.5 % (0.2-1.0) 10/02/19 08:50 Neut # (Auto) 6.7 x10^3/uL (2.2-4.8) H 10/02/19 08:50 Lymph # (Auto) 1.9 X10^3/uL (1.3-2.9) 10/02/19 08:50 [place] # (Auto) 0.4 x10^3/uL (0.3-0.8) 10/02/19 08:50 Eos # (Auto) 0.2 x10^3/uL (0.0-0.2) 10/02/19 08:50 Baso # (Auto) 0.1 X10^3/uL (0.0-0.1) 10/02/19 08:50 Absolute Nucleated RBC 0.1 /100WBC 10/02/19 08:50 Sodium 142 mmol/L (136-145) 10/02/19 08:50 Corrected Sodium 144 mmol/L (136-145) 10/02/19 08:50 Potassium 3.6 mmol/L (3.5-5.1) 10/02/19 08:50 Chloride 109 mmol/L (98-107) H 10/02/19 08:50 Carbon Dioxide 22.4 mmol/L (21-32) 10/02/19 08:50 BUN 21 mg/dL (7-18) H 10/02/19 08:50 Creatinine 1.74 mg/dL (0.55-1.02) H 10/02/19 08:50 Est GFR (MDRD) Af Amer 43 (>60) L 10/02/19 08:50 Est GFR (MDRD) Non-Af 35 (>60) L 10/02/19 08:50 Glucose 179 mg/dL (65-99) H 10/02/19 08:50 Calcium 9.3 mg/dL (8.5-10.1) 10/02/19 08:50 Corrected Calcium TNP 10/02/19 08:50 Total Bilirubin 0.20 mg/dL (0.2-1.0) 10/02/19 08:50 AST 14 Units/L (15-37) L 10/02/19 08:50 ALT 20 Units/L (12-78) 10/02/19 08:50 Alkaline Phosphatase 142 Units/L (46-116) H 10/02/19 08:50 Total Protein 8.0 g/dL (6.4-8.2) 10/02/19 08:50 Albumin 3.5 g/dL (3.4-5.0) 10/02/19 08:50 Globulin 4.5 g/dL (2.5-4.5) 10/02/19 08:50 Albumin/Globulin Ratio 0.8 Ratio (1.1-2.1) L 10/02/19 08:50 Amylase 78 Units/L (25-115) 10/02/19 08:50 Lipase 288 Units/L (73-393) 10/02/19 08:50 HCG, Qual Negative <10 mIU/mL 10/02/19 08:50 Specimen Type Random urine 10/02/19 10:18 Urine Color Pale yellow (YELLOW) 10/02/19 10:18 Urine Appearance Clear (CLEAR) 10/02/19 10:18 Urine pH 7.0 (5.0 - 8.0) 10/02/19 10:18 Ur Specific [place] 1.010 (1.000-1.030) 10/02/19 10:18 Urine Protein 2+ (NEGATIVE) 10/02/19 10:18 Urine Glucose (UA) Negative (NEGATIVE) 10/02/19 10:18 Urine Ketones Negative (NEGATIVE) 10/02/19 10:18 Urine Occult Blood 4+ (NEGATIVE) 10/02/19 10:18 Urine Nitrite Negative (NEGATIVE) 10/02/19 10:18 Urine Bilirubin Negative (NEGATIVE) 10/02/19 10:18 Urine Urobilinogen Normal (NORMAL) 10/02/19 10:18 Ur Leukocyte Esterase Negative (NEGATIVE) 10/02/19 10:18 Urine RBC 5-10 /HPF (0-3) A 10/02/19 10:18 Urine WBC None seen /HPF (0-5) 10/02/19 10:18 Ur Squamous Epith Cells Rare /HPF (NEGATIVE) 10/02/19 10:18 Urine Bacteria Negative /HPF (NEGATIVE) 10/02/19 10:18 Ur Culture Indicated? No/not indicated 10/02/19 10:18 Acetone, Semi-Quant Negative (NEGATIVE) 10/02/19 08:50 XRAY XRAY Interpreted by: Radiologist (REPORT NOTED AND DISCUSSED WITH PATIENT.) and Self (ACUTE ABDOMINAL SERIES NO ACUTE FINDINGS.) Opioid Opioid Risk Tool Age (Duc box if 16-45): Yes History of Preadolescent Sexual Abuse: No Total: 1 Total Score Risk Category: Low Risk Copyright: Wilfrid ROCKWELL predicting aberrant behaviors Diagnosis Discharge Problem: Gastroparesis Nausea & vomiting Qualifiers: Vomiting type: bilious vomiting Qualified Code(s): R11.14 - Bilious vomiting Abdominal pain Qualifiers: Abdominal location: generalized Qualified Code(s): R10.84 - Generalized abdominal pain
[2019-10-02 09:08] LABS: BASOPHILS # (AUTO) 0.1 X10^3/uL (0.0-0.1); BASOPHILS % (AUTO) 0.5 % (0.2-1.0); EOSINOPHILS # (AUTO) 0.2 x10^3/uL (0.0-0.2); EOSINOPHILS % (AUTO) 2.4 % (0.9-2.9); HEMATOCRIT 32.7 % (36.0-47.0); HEMOGLOBIN 10.5 g/dL (12.0-16.0); LYMPHOCYTES # (AUTO) 1.9 X10^3/uL (1.3-2.9); LYMPHOCYTES % (AUTO) 20.3 % (21.0-51.0); MEAN CORPUSCULAR HEMOGLOBIN 28.6 pg (27.0-34.0); MEAN CORPUSCULAR HGB CONC 32.1 g/dL (33.0-35.0); MEAN CORPUSCULAR VOLUME 89.3 fL (80.0-100.0); MEAN PLATELET VOLUME 9.5 fL (7.4-11.0); MONOCYTES # (AUTO) 0.4 x10^3/uL (0.3-0.8); MONOCYTES % (AUTO) 4.5 % (0.0-13.0); NEUTROPHILS # (AUTO) 6.7 x10^3/uL (2.2-4.8); NEUTROPHILS % (AUTO) 72.3 % (42.0-75.0); PLATELET COUNT 285 X10^3/uL (150.0-450.0); RED BLOOD COUNT 3.67 X10^6/uL (3.5-5.4); RED CELL DISTRIBUTION WIDTH 15.1 % (11.6-16.5); WHITE BLOOD COUNT 9.2 X10^3/uL (3.6-10.0)
[2019-10-02 09:16] LABS: ALANINE AMINOTRANSFERASE 20 Units/L (12-78); ALBUMIN 3.5 g/dL (3.4-5.0); ALKALINE PHOSPHATASE 142 Units/L (46-116); AMYLASE 78 Units/L (25-115); ASPARTATE AMINO TRANSFERASE 14 Units/L (15-37); BLOOD UREA NITROGEN 21 mg/dL (7-18); CALCIUM 9.3 mg/dL (8.5-10.1); CARBON DIOXIDE 22.4 mmol/L (21-32); CHLORIDE 109 mmol/L (98-107); COR NA(FOR HYPERGLY) 144 mmol/L (136-145); CREATININE 1.74 mg/dL (0.55-1.02); LIPASE 288 Units/L (73-393); SODIUM 142 mmol/L (136-145); eGFR NON BLACK RACES 35 (>60)
[2019-10-02 09:52] LABS: SERUM PREGNANCY TEST, QUAL NEGATIVE <10 mIU/mL
[2019-10-02] MEDS ORDERED: DILAUDID INJ ONE ×2 (10:10→13:45)
[2019-10-02] MEDS ORDERED: PHENERGAN INJ 25 MG IM ONE ×2 (10:10→10:12)
[2019-10-02] MEDS ORDERED: DILAUDID INJ IVP ONE (10:13)
[2019-10-02 10:25] LABS: BILIRUBIN,URINE NEGATIVE (NEGATIVE); BLOOD/HEMOGLOBIN,URINE 4+ (NEGATIVE); GLUCOSE, URINE NEGATIVE (NEGATIVE); KETONES,URINE NEGATIVE (NEGATIVE); LEUKOCYTE ESTERASE ,URINE NEGATIVE (NEGATIVE); NITRITES,URINE NEGATIVE (NEGATIVE); PROTEIN,URINE 2+ (NEGATIVE); UROBILINOGEN,URINE NORMAL (NORMAL)
[2019-10-02 10:30] LABS: APPEARANCE,URINE CLEAR (CLEAR); COLOR,URINE PALE YELLOW (YELLOW)
[2019-10-02 10:31] LABS: BACTERIA,URINE NEGATIVE /HPF (NEGATIVE); SQUAMOUS EPITHELIAL CELL,UR RARE /HPF (NEGATIVE)
--- NOTE | 2019-10-02 10:53 | RAD ---
HISTORYABD PAINS, NAUSEA, VOMITTING, GASTROPARESIS HTN, DIABETES, GB, BKA (LEFT)STUDYACUTE ABDOMEN SERIESCOMPARISONMay 2019FINDINGSThe trachea is midline. The cardiac silhouette is [unremarkable]. [The lungs are relatively clear without focal consolidation.].Flat plate and upright evaluation of the abdomen demonstrates a [nonspecific bowel gas pattern]. The renal shadows are partially obscured by overlying bowel content.IMPRESSION1. [No acute cardiopulmonary disease.]2. [Nonspecific bowel gas pattern.]Electronically signed by: MATT MAYBERRY (October 02, 2019 10:51:58)
--- NOTE | 2019-10-02 12:13 | CT ---
HISTORYPT C/O GENERALIZED ABDOMINAL PAIN SINCE THURSDAY ASSOCIATED WITH NAUSEA AND VOMITING.STUDYABDOMEN/PELVIS W/O CONCOMPARISONSeptember 2017TECHNIQUEMultiple axial images of the abdomen and pelvis were obtained from the lung bases to the pubic symphysis without the administration of IV contrast. Dose reduction techniques including Automated Exposure Control (AEC) and adjustment of mA and kV were utilized.FINDINGSAreas of suspected subsegmental atelectasis and/or scarring are seen within the visualized lungs. The liver, spleen, pancreas, adrenals, and kidneys are grossly unremarkable in appearance given the limitations of this noncontrast exam. Surgical clips are seen within the gallbladder fossa. The appendix is partially air-filled and otherwise grossly unremarkable. No significant inflammatory changes are appreciated within the right lower quadrant. Scattered colonic diverticuli are noted. The urinary bladder is grossly unremarkable.IMPRESSIONCholecystectomy.Diverticulosis.Electronically signed by: MATT MAYBERRY (September 152019 12:12:07)
[2019-10-02] MEDS: NS 1000 ML 1,000 ML IV SCH ×2 (13:31→23:25)
[2019-10-02] MEDS: ZOFRAN INJ 4 MG VIAL IVP PRN ×2 (13:52→22:45)
[2019-10-02] MEDS: PEPCID 20 MG IV PREMIX* 20 MG/50 ML BAG IV SCH (15:28)
[2019-10-02] MEDS: DILAUDID INJ IVP PRN ×2 (18:00→22:35)
[2019-10-03] MEDS: DILAUDID INJ IVP PRN ×6 (02:38→22:30)
[2019-10-03] MEDS ORDERED: GLUTOSE 15 GEL ORAL PO ONE ×2 (05:48→20:25)
[2019-10-03] MEDS: GLUTOSE 15 GEL ORAL PO PRN ×2 (05:55→20:46)
[2019-10-03 06:31] LABS: BASOPHILS # (AUTO) 0.1 X10^3/uL (0.0-0.1); BASOPHILS % (AUTO) 0.6 % (0.2-1.0); EOSINOPHILS # (AUTO) 0.3 x10^3/uL (0.0-0.2); EOSINOPHILS % (AUTO) 3.3 % (0.9-2.9); HEMATOCRIT 27.6 % (36.0-47.0); HEMOGLOBIN 8.9 g/dL (12.0-16.0); LYMPHOCYTES # (AUTO) 2.7 X10^3/uL (1.3-2.9); LYMPHOCYTES % (AUTO) 28.9 % (21.0-51.0); MEAN CORPUSCULAR HEMOGLOBIN 28.8 pg (27.0-34.0); MEAN CORPUSCULAR HGB CONC 32.4 g/dL (33.0-35.0); MEAN CORPUSCULAR VOLUME 88.8 fL (80.0-100.0); MEAN PLATELET VOLUME 8.6 fL (7.4-11.0); MONOCYTES # (AUTO) 0.9 x10^3/uL (0.3-0.8); MONOCYTES % (AUTO) 9.3 % (0.0-13.0); NEUTROPHILS # (AUTO) 5.4 x10^3/uL (2.2-4.8); NEUTROPHILS % (AUTO) 57.9 % (42.0-75.0); PLATELET COUNT 222 X10^3/uL (150.0-450.0); RED CELL DISTRIBUTION WIDTH 14.8 % (11.6-16.5); WHITE BLOOD COUNT 9.3 X10^3/uL (3.6-10.0)
[2019-10-03 06:51] LABS: ALANINE AMINOTRANSFERASE 18 Units/L (12-78); ALBUMIN 3.1 g/dL (3.4-5.0); ALKALINE PHOSPHATASE 127 Units/L (46-116); AMYLASE 58 Units/L (25-115); ASPARTATE AMINO TRANSFERASE 17 Units/L (15-37); BLOOD UREA NITROGEN 14 mg/dL (7-18); CALCIUM 8.7 mg/dL (8.5-10.1); CARBON DIOXIDE 21.5 mmol/L (21-32); CHLORIDE 109 mmol/L (98-107); COR CA(FOR HYPOALB) 9.4 mg/dL (8.5-10.1); CREATININE 1.36 mg/dL (0.55-1.02); LIPASE 128 Units/L (73-393); SODIUM 142 mmol/L (136-145); TOTAL PROTEIN 6.9 g/dL (6.4-8.2); eGFR NON BLACK RACES 47 (>60)
[2019-10-03] MEDS: ZOFRAN INJ 4 MG VIAL IVP PRN ×2 (07:48→22:30)
[2019-10-03] MEDS: PEPCID 20 MG IV PREMIX* 20 MG/50 ML BAG IV SCH ×2 (07:52→10:29)
[2019-10-03] MEDS: REGLAN INJ 10 MG VIAL IVP SCH ×3 (12:11→20:45)
[2019-10-03] MEDS: NS 1000 ML 1,000 ML IV SCH ×2 (12:12→19:35)
--- NOTE | 2019-10-03 17:31 | DR.H&P ---
H&P - History & Physical for Day of: H&P Date: 10/02/19 - Chief Complaint Chief Complaint: ABDOMINAL PAIN, N/V - History of Present Illness History of Present Illness: PT IS 34 BF ER ADMISSION WITH CO INTRACTABLE ABDOMINAL PAIN WITH N/V. PT REPORTS SHE TOOK GI COCKTAIL, REGLAN AND PHENERGAN WITHOUT IMPROVEMENT. PT WAS SEEN IN DR OSVALDO PALOMINO OFFICE LAST WEEK, REPORTS SHE FELT BETTER AT TIME. PT REPORTS SUDDEN RETURN OF PAIN WITH N/V T HURSDAY NIGHT CONTINUING UNTIL ER ADMISSION. PT HAD PMH OF CRF, DM, BLIND, HTN, GASTROPARESIS, GERD, CAD. PT ADMITTED FOR TREATMENT OF ACUTE ILLNESS. - Past Medical History Past Medical History: Anxiety, Coronary Artery Disease, Diabetes, GERD, Hypertension, PUD, Renal Disease Additional Medical History: MORBID OBESITY - Past Surgical History Surgical History: Cholecystectomy, Ortho Surgery - Family History Family Medical History: Diabetes Mellitus, Coronary Artery Disease - Social History Does patient currently use any type of tobacco product: No Have you used tobacco products in the last 12 months: No Type of Tobacco Use: None Does any household member use tobacco: No Alcohol Use: None Drug Use: None - Medications Home Medications: latex Allergy (Verified 08/21/19 15:40) Penicillins Allergy (Verified 08/21/19 15:40) ceftazidime [From Fortaz] Adverse Reaction (Verified 08/21/19 15:40) CONTINUE taking the following medications insulin detemir U-100 [Levemir U-100 Insulin] 10 unit SUBCUT BID 10/03/19 [Hi story] lisinopril 20 mg PO DAILY 10/03/19 [History] pantoprazole 40 mg PO HS 10/03/19 [History] - Review of Systems Constitutional: Weakness Eyes: No Symptoms Reported ENT: No Symptoms Reported Respiratory: No Symptoms Reported Cardiovascular: No Symptoms Reported Gastrointestinal: Nausea, Vomiting, Abdominal Pain. denies: Diarrhea Genitourinary: No Symptoms Reported Musculoskeletal: Back Pain Skin: No Symptoms Reported Neurological: No Symptoms Reported - Physical Exam Vital Signs: Temperature 98.2 F Pulse Rate [Left Brachial] 89 Pulse Rate 105 Respiratory Rate 20 Blood Pressure [Right Arm] 228/107 Blood Pressure [Left Arm] 153/82 Blood Pressure 208/103 O2 Sat by Pulse Oximetry 100 Oriented: Normal Eyes: Blurred Vision Ear: Normal Nose: Normal Throat: Normal Respiratory: Clear Throughout Cardiovascular: Normal. negative: Edema : Normal Auscultation: Bowel Sounds: Normal Palpation: Normal Tenderness: LUQ, Epigastric Skin: Decreased Turgur Musculoskeletal: Back:Lumbar, Deformity (L BKA) Psychiatric: Anxiety Affect: Anxious Speech Pattern: Clear, Appropriate - Assessment/Plan (1) Acute gastroenteritis Status: Acute Plan: ADMIT, NPO GENTLE IV HYDRATION. BP AND BLOOD SUGAR CONTROL, AMYLASE AND LIPASE ON ADMISSION. VERIFY HOME MEDICATION, CT ABD/PELVIS ON ADMISSION. PAIN AND NAUSEA CONTROL, PPI THERAPY. STRICT I&OS (2) Gastroparesis Status: Acute (3) Nausea & vomiting Status: Acute (4) CAD (coronary artery disease) Status: Chronic (5) CKD (chronic kidney disease) stage 4, GFR 15-29 ml/min Status: Chronic (6) Diabetic nephropathy Qualifiers: Diabetes mellitus type: type 1 Qualified Code(s): E10.21 - Type 1 diabetes mellitus with diabetic nephropathy Status: Chronic (7) Essential hypertension Status: Chronic - Allergies Allergies/Adverse Reactions: Allergies Allergy/AdvReac Type Severity Reaction Status Date / Time latex Allergy Verified 08/21/19 15:40 Penicillins Allergy Verified 08/21/19 15:40 ceftazidime [From Fortaz] AdvReac Verified 08/21/19 15:40
[2019-10-03] MEDS: BENTYL CAP 10 MG PO SCH (20:41)
[2019-10-03] MEDS: COREG TAB 3.125 MG PO SCH (20:42)
[2019-10-03] MEDS: PERCOCET TAB 5/325 MG PO SCH (20:43)
[2019-10-03] MEDS ORDERED: CELEXA PO SCH (21:00)
[2019-10-03] MEDS ORDERED: LIPITOR TAB 40 MG PO SCH (21:00)
[2019-10-03] MEDS ORDERED: PATIENT'S HOME MEDICATION (Oxycodone-Acetaminophen [Percocet] 1 TAB) PO SCH (21:00)
[2019-10-03] MEDS ORDERED: D5W 1000 ML IV 1,000 ML IV SCH (21:00)
[2019-10-04] MEDS: DILAUDID INJ IVP PRN ×2 (04:25→10:47)
[2019-10-04] MEDS: BENTYL CAP 10 MG PO SCH ×2 (05:31→10:42)
[2019-10-04] MEDS: REGLAN INJ 10 MG VIAL IVP SCH ×2 (05:45→10:47)
[2019-10-04 06:11] LABS: BASOPHILS % (AUTO) 0.5 % (0.2-1.0); EOSINOPHILS # (AUTO) 0.3 x10^3/uL (0.0-0.2); HEMATOCRIT 26.8 % (36.0-47.0); HEMOGLOBIN 8.8 g/dL (12.0-16.0); LYMPHOCYTES # (AUTO) 2.1 X10^3/uL (1.3-2.9); LYMPHOCYTES % (AUTO) 30.6 % (21.0-51.0); MEAN CORPUSCULAR HEMOGLOBIN 29.2 pg (27.0-34.0); MEAN CORPUSCULAR HGB CONC 32.7 g/dL (33.0-35.0); MEAN CORPUSCULAR VOLUME 89.2 fL (80.0-100.0); MEAN PLATELET VOLUME 9.3 fL (7.4-11.0); MONOCYTES # (AUTO) 0.6 x10^3/uL (0.3-0.8); MONOCYTES % (AUTO) 8.1 % (0.0-13.0); NEUTROPHILS # (AUTO) 3.8 x10^3/uL (2.2-4.8); NEUTROPHILS % (AUTO) 55.8 % (42.0-75.0); PLATELET COUNT 211 X10^3/uL (150.0-450.0); RED CELL DISTRIBUTION WIDTH 14.8 % (11.6-16.5); WHITE BLOOD COUNT 6.9 X10^3/uL (3.6-10.0)
[2019-10-04 06:19] LABS: ALANINE AMINOTRANSFERASE 20 Units/L (12-78); ALBUMIN 2.9 g/dL (3.4-5.0); ALKALINE PHOSPHATASE 120 Units/L (46-116); ASPARTATE AMINO TRANSFERASE 19 Units/L (15-37); BLOOD UREA NITROGEN 8 mg/dL (7-18); CALCIUM 8.5 mg/dL (8.5-10.1); CARBON DIOXIDE 22.3 mmol/L (21-32); CHLORIDE 108 mmol/L (98-107); COR CA(FOR HYPOALB) 9.4 mg/dL (8.5-10.1); CREATININE 1.24 mg/dL (0.55-1.02); SODIUM 140 mmol/L (136-145); TOTAL PROTEIN 6.5 g/dL (6.4-8.2); eGFR NON BLACK RACES 52 (>60)
[2019-10-04] MEDS ORDERED: ZESTRIL TAB 20 MG ONE (07:22)
[2019-10-04] MEDS: ZOFRAN INJ 4 MG VIAL IVP PRN (07:33)
[2019-10-04] MEDS ORDERED: ZESTRIL TAB 20 MG PO SCH (09:00)
[2019-10-04] MEDS: PEPCID 20 MG IV PREMIX* 20 MG/50 ML BAG IV SCH (09:05)
[2019-10-04] MEDS: PERCOCET TAB 5/325 MG PO SCH (09:06)
[2019-10-04] MEDS: COREG TAB 3.125 MG PO SCH (09:06)
[2019-10-04] MEDS ORDERED: PROTONIX INJ 40 MG VIAL IVP SCH (10:00)
[2019-10-04] MEDS ORDERED: APRESOLINE TAB 25 MG PO SCH (10:00)
--- NOTE | 2019-10-04 11:16 | DR.CONSULT ---
Consult - Consultation for Day of: Date: 10/04/19 - Chief Complaint Chief Complaint: Patient referred for abdominal pain, n/v, gastroparesis. Patient with complaints of dyspepsia, nausea, vomiting, diffuse abdominal pain. - History of Present Illness History of Present Illness: Patient is a 34 yo female who was referred for abdominal pain, n/v, gastroparesis. Patient with complaints of dyspepsia, nausea since thursday, vomiting since thursday last vomited on thursday, diffuse abdominal pain and melena. Pateint denies dysphagia, constipation, diarrhea, and hematochezia. Lsst EGD was 09/09/19 which showed esophagitis, erosive gastritis, hiatal hernia and duodenitis. Hgb 8.8, Hct 26.8, Plt 211, BUN 8, Creatinine 1.24, T. Bili 0.2, AST 19, ALT 20, ALP 120. Abdomen and pelvis CT showed cholecystectomy and diverticulosis. - Past Medical History Past Medical History: Anxiety, Coronary Artery Disease, Diabetes, GERD, Hypertension, PUD, Renal Disease Additional Medical History: MORBID OBESITY, Pancreatitis, gastroparesis, osteomyelitis - Past Surgical History Surgical History: Cholecystectomy, Ortho Surgery Additional Surgical History: bilateral BKA - Family History Family Medical History: Diabetes Mellitus, Coronary Artery Disease - Social History Does patient currently use any type of tobacco product: No Have you used tobacco products in the last 12 months: No Type of Tobacco Use: None Does any household member use tobacco: No Alcohol Use: None Drug Use: None - Medications Home Medications: latex Allergy (Verified 08/21/19 15:40) Penicillins Allergy (Verified 08/21/19 15:40) ceftazidime [From Fortaz] Adverse Reaction (Verified 08/21/19 15:40) CONTINUE taking the following medications insulin detemir U-100 [Levemir U-100 Insulin] 10 unit SUBCUT BID 10/03/19 [History] lisinopril 20 mg PO DAILY 10/03/19 [History] pantoprazole 40 mg PO HS 10/03/19 [History] - Review of Systems Gastrointestinal: See HPI, Nausea, Vomiting, Abdominal Pain (diffuse), Melena. denies: Diarrhea, Constipation, Hematochezia, Other - Physical Exam Vital Signs: Temperature 98.5 F Pulse Rate [Right Brachial] 86 Pulse Rate [Left Brachial] 84 Pulse Rate 105 Respiratory Rate 20 Blood Pressure [Right Arm] 171/89 Blood Pressure [Left Arm] 144/81 Blood Pressure 208/103 O2 Sat by Pulse Oximetry 100 Oriented: Normal Eyes: Normal Ear: Normal Nose: Normal Throat: Normal Respiratory: Clear Throughout Cardiovascular: Normal Auscultation: Bowel Sounds: Normal Palpation: Normal, Other (no distention). negative: Spleen Enlarged, Liver Enlarged, Mass Pulsatile Tenderness: Diffuse Skin: Normal Musculoskeletal: Normal Psychiatric: Normal Mood Description: Calm Affect: Normal Speech Pattern: Clear, Appropriate - Plan Plan: Assessment. 1. Nausea, Vomiting abdominal pain likely secondary to gastroparesis. 2. GERD. Plan. 1. Cont Reglan IV, Protonix IV, Zofran PRN. Plan reviewed with Dr. Curtis - Allergies Allergies/Adverse Reactions: Allergies Allergy/AdvReac Type Severity Reaction Status Date / Time latex Allergy Verified 08/21/19 15:40 Penicillins Allergy Verified 08/21/19 15:40 ceftazidime [From Fortaz] AdvReac Verified 08/21/19 15:40
[2019-10-04 13:00] VITALS: BP 119/74
== END 2019-10-04 16:05 | disposition home or self-care (01) ==
LOC: ER 08:22 → MED/SURG 08:22
PROVIDERS: ADMIT Internal Medicine; ATTEND Internal Medicine
DX: K21.9 Gastro-esophageal reflux disease without esophagitis; I25.10 Atherosclerotic heart disease of native coronary artery without angina pectoris; K31.84 Gastroparesis; I13.10 Hypertensive heart and chronic kidney disease without heart failure, with stage 1 through stage 4 chronic kidney disease, or unspecified chronic kidney disease; K52.89 Other specified noninfective gastroenteritis and colitis; E86.0 Dehydration; N18.4 Chronic kidney disease, stage 4 (severe); Z79.899 Other long term (current) drug therapy; F41.8 Other specified anxiety disorders; R94.4 Abnormal results of kidney function studies; R11.14 Bilious vomiting; R10.84 Generalized abdominal pain; E10.43 Type 1 diabetes mellitus with diabetic autonomic (poly)neuropathy
CPT/HCPCS: 36415; 36591; 74022; 74176; 80053; 81001; 82009; 82150; 83690; 84703; 85025; 96360; 96361; 96365; 96372; 96374; 96375; 99284; A4222; C9113; G0378; J1170; J1642; J2270; J2405; J2550; J2765; J7030; J7060; S0028

== ENCOUNTER 2019-10-25 11:24 | Observation (INO) ==
[2019-10-25 12:40] VITALS: BMI 29.8
[2019-10-25] MEDS ORDERED: PHENERGAN INJ 25 MG IM PRN (13:54)
[2019-10-25 14:35] LABS: BASOPHILS # (AUTO) 0.1 X10^3/uL (0.0-0.1); BASOPHILS % (AUTO) 0.5 % (0.2-1.0); EOSINOPHILS # (AUTO) 0.1 x10^3/uL (0.0-0.2); EOSINOPHILS % (AUTO) 0.5 % (0.9-2.9); HEMATOCRIT 32.4 % (36.0-47.0); HEMOGLOBIN 10.6 g/dL (12.0-16.0); LYMPHOCYTES % (AUTO) 24.2 % (21.0-51.0); MEAN CORPUSCULAR HEMOGLOBIN 28.8 pg (27.0-34.0); MEAN CORPUSCULAR HGB CONC 32.8 g/dL (33.0-35.0); MEAN CORPUSCULAR VOLUME 87.8 fL (80.0-100.0); MEAN PLATELET VOLUME 8.8 fL (7.4-11.0); MONOCYTES # (AUTO) 0.9 x10^3/uL (0.3-0.8); MONOCYTES % (AUTO) 7.6 % (0.0-13.0); NEUTROPHILS # (AUTO) 8.2 x10^3/uL (2.2-4.8); NEUTROPHILS % (AUTO) 67.2 % (42.0-75.0); PLATELET COUNT 268 X10^3/uL (150.0-450.0); RED BLOOD COUNT 3.69 X10^6/uL (3.5-5.4); WHITE BLOOD COUNT 12.2 X10^3/uL (3.6-10.0)
[2019-10-25 14:49] LABS: ALANINE AMINOTRANSFERASE 17 Units/L (12-78); ALBUMIN 3.5 g/dL (3.4-5.0); ALKALINE PHOSPHATASE 120 Units/L (46-116); AMYLASE 66 Units/L (25-115); ASPARTATE AMINO TRANSFERASE 12 Units/L (15-37); BLOOD UREA NITROGEN 23 mg/dL (7-18); CALCIUM 8.9 mg/dL (8.5-10.1); CARBON DIOXIDE 23.2 mmol/L (21-32); CHLORIDE 104 mmol/L (98-107); LIPASE 161 Units/L (73-393); SODIUM 138 mmol/L (136-145); TOTAL PROTEIN 7.7 g/dL (6.4-8.2); eGFR NON BLACK RACES 32 (>60)
[2019-10-25] MEDS: MORPHINE SULFATE INJ 2 MG INJ IVP PRN ×3 (14:50→23:26)
[2019-10-25] MEDS: PROTONIX INJ 40 MG VIAL 80 MG in NS 100 ML IV 80 ML IV SCH ×2 (14:55→23:26)
--- NOTE | 2019-10-25 15:01 | RAD ---
HISTORYABDOMINAL PAIN, N/VSTUDYAcute abdominal seriesCOMPARISONMay 2019FINDINGSThe lungs are clear and the heart and mediastinum are unremarkable. There is a right subclavian Port-A-Cath.The bowel gas pattern is unremarkable. There are cholecystectomy clips. No urinary tract calcification is suggested.IMPRESSIONNo evidence for acute diseaseElectronically signed by: DENI GRANDE (Oct 25, 2019 15:00:29)
--- NOTE | 2019-10-25 15:09 | CT ---
HISTORYABD PAINSTUDYABDOMEN/PELVIS W/O CONCOMPARISONCT abdomen and pelvis dated 10/02/2019TECHNIQUEAxial images through the abdomen and pelvis were performed without contrast. CT scan was performed following ALARA (As low as Reasonably Achievable).Coronal and Sagittal reformatted images were performed..FINDINGSThe lung bases are clear, The liver spleen and pancreas demonstrate no abnormality. Patient is status post cholecystectomy, there is no adrenal masses, there bilateral normal enhancing kidneys without hydronephrosis, nor renal calculus. No retroperitoneal masses, no abnormal dilated small bowel loops. Terminal ileum is unremarkable,there is no secondary signs of appendicitis, no significant colitis,no abnormal dilated small bowel loopsPelvis there is no free fluid, the uterus is present, there is no adnexal masses, the urinary bladder demonstrate no focal abnormalities. Few diverticula in the sigmoid colon. Bone windows no aggressive bone lesions, no acute fracture there is again seen bone fusion of L4-L5.IMPRESSIONNo acute intra-abdominal abnormality, s/p cholecystectomy, no intra or extrahepatic biliary dilatation. No free air or free fluid.Electronically signed by: Allison Wilder (Oct 25, 2019 15:08:16)
[2019-10-25] MEDS ORDERED: K-DUR TAB 20 MEQ PO PRN (18:15)
[2019-10-25] MEDS ORDERED: KLOR-CON PO PRN (18:15)
[2019-10-25] MEDS ORDERED: POTASSIUM CHL 60 MEQ/NS 0.45% 500 ML IV PRN (18:15)
[2019-10-25] MEDS ORDERED: POTASSIUM CHL 40 MEQ/NS 0.45% 500 ML IV PRN (18:15)
[2019-10-25] MEDS ORDERED: POTASSIUM CHLORIDE LIQ 20 MEQ UDC PO PRN (18:15)
[2019-10-25] MEDS ORDERED: MICRO K EXTEN CAP 10 MEQ PO PRN (18:15)
[2019-10-25] MEDS: K-RIDER 10 MEQ/NS 100 ML 10 MEQ/100 ML BAG IV PRN ×5 (19:15→23:26)
[2019-10-25] MEDS: ZOFRAN INJ 4 MG VIAL IVP PRN (19:26)
[2019-10-26] MEDS: PROTONIX INJ 40 MG VIAL 80 MG in NS 100 ML IV 80 ML IV SCH ×2 (00:09→11:47)
[2019-10-26] MEDS: K-RIDER 10 MEQ/NS 100 ML 10 MEQ/100 ML BAG IV PRN (00:21)
[2019-10-26 01:23] LABS: BILIRUBIN,URINE NEGATIVE (NEGATIVE); BLOOD/HEMOGLOBIN,URINE NEGATIVE (NEGATIVE); GLUCOSE, URINE NEGATIVE (NEGATIVE); KETONES,URINE 1+ (NEGATIVE); LEUKOCYTE ESTERASE ,URINE NEGATIVE (NEGATIVE); NITRITES,URINE NEGATIVE (NEGATIVE); PROTEIN,URINE 3+ (NEGATIVE); UROBILINOGEN,URINE NORMAL (NORMAL)
[2019-10-26 01:46] LABS: APPEARANCE,URINE CLEAR (CLEAR); COLOR,URINE YELLOW (YELLOW)
[2019-10-26 01:47] LABS: BACTERIA,URINE NEGATIVE /HPF (NEGATIVE); RBC,URINE NONE SEEN /HPF (0-3); SQUAMOUS EPITHELIAL CELL,UR RARE /HPF (NEGATIVE)
[2019-10-26] MEDS: MAGNESIUM SULFATE 1 GRAM/100 mL PREMIX 2 G/200 ML BAG IV SCH ×2 (02:30→03:21)
[2019-10-26] MEDS: ZOFRAN INJ 4 MG VIAL IVP PRN (03:35)
[2019-10-26] MEDS: MORPHINE SULFATE INJ 2 MG INJ IVP PRN ×3 (03:35→12:30)
[2019-10-26 06:15] LABS: BASOPHILS % (AUTO) 0.4 % (0.2-1.0); EOSINOPHILS # (AUTO) 0.2 x10^3/uL (0.0-0.2); EOSINOPHILS % (AUTO) 1.9 % (0.9-2.9); HEMOGLOBIN 9.5 g/dL (12.0-16.0); LYMPHOCYTES # (AUTO) 3.8 X10^3/uL (1.3-2.9); LYMPHOCYTES % (AUTO) 35.8 % (21.0-51.0); MEAN CORPUSCULAR HGB CONC 32.8 g/dL (33.0-35.0); MEAN CORPUSCULAR VOLUME 88.5 fL (80.0-100.0); MEAN PLATELET VOLUME 9.4 fL (7.4-11.0); MONOCYTES % (AUTO) 9.3 % (0.0-13.0); NEUTROPHILS # (AUTO) 5.6 x10^3/uL (2.2-4.8); NEUTROPHILS % (AUTO) 52.6 % (42.0-75.0); PLATELET COUNT 222 X10^3/uL (150.0-450.0); RED BLOOD COUNT 3.27 X10^6/uL (3.5-5.4); RED CELL DISTRIBUTION WIDTH 14.7 % (11.6-16.5); WHITE BLOOD COUNT 10.6 X10^3/uL (3.6-10.0)
[2019-10-26 06:29] LABS: ALANINE AMINOTRANSFERASE 19 Units/L (12-78); ALKALINE PHOSPHATASE 102 Units/L (46-116); ASPARTATE AMINO TRANSFERASE 16 Units/L (15-37); BLOOD UREA NITROGEN 24 mg/dL (7-18); CALCIUM 8.7 mg/dL (8.5-10.1); CARBON DIOXIDE 22.6 mmol/L (21-32); CHLORIDE 105 mmol/L (98-107); COR CA(FOR HYPOALB) 9.5 mg/dL (8.5-10.1); CREATININE 1.86 mg/dL (0.55-1.02); SODIUM 137 mmol/L (136-145); TOTAL PROTEIN 6.8 g/dL (6.4-8.2); eGFR NON BLACK RACES 33 (>60)
[2019-10-26] MEDS ORDERED: REGLAN INJ 10 MG VIAL IVP PRN (09:29)
[2019-10-26] MEDS ORDERED: DONNATAL TAB PO SCH ×2 (10:00→13:00)
[2019-10-26 16:48] VITALS: BP 135/78
== END 2019-10-26 16:45 | disposition home or self-care (01) ==
LOC: MED/SURG
PROVIDERS: ADMIT Internal Medicine; ATTEND Internal Medicine
DX: E86.0 Dehydration; E11.43 Type 2 diabetes mellitus with diabetic autonomic (poly)neuropathy; R26.89 Other abnormalities of gait and mobility; I12.9 Hypertensive chronic kidney disease with stage 1 through stage 4 chronic kidney disease, or unspecified chronic kidney disease; E11.65 Type 2 diabetes mellitus with hyperglycemia; N17.8 Other acute kidney failure; R11.2 Nausea with vomiting, unspecified; R10.84 Generalized abdominal pain; K31.84 Gastroparesis; K21.9 Gastro-esophageal reflux disease without esophagitis; N18.9 Chronic kidney disease, unspecified
CPT/HCPCS: 36415; 74022; 74176; 80053; 81001; 82150; 83690; 83735; 85025; 96374; 97162; A4216; A4222; C9113; G0378; J1642; J2270; J2405; J3475; J3480; J7050

== ENCOUNTER 2019-11-02 10:59 | Inpatient (IN) ==
--- NOTE | 2019-11-02 11:59 | DR.H&P ---
H&P - History & Physical for Day of: H&P Date: 11/02/19 - Chief Complaint Chief Complaint: abdominal pain, nausea and vomiting - History of Present Illness History of Present Illness: Patient is a 34 year old female that is a direct admit from Dr. Auguste's office secondary to abdominal pain, nausea and vomiting. Patient states that it has been ongoing x3 days. Does report that she didn't feel like she had relief after last hospitalization. Patient will be admitted for further evaluation. - Past Medical History Past Medical History: Anxiety, Coronary Artery Disease, Diabetes, GERD, Hypertension, PUD, Renal Disease Additional Medical History: MORBID OBESITY, Pancreatitis, gastroparesis, osteomyelitis - Past Surgical History Surgical History: Cholecystectomy, Ortho Surgery, Other Additional Surgical History: bilateral BKA - Family History Family Medical History: Diabetes Mellitus, Coronary Artery Disease - Medications Home Medications: latex Allergy (Verified 08/21/19 15:40) Penicillins Allergy (Verified 08/21/19 15:40) ceftazidime [From Fortaz] Adverse Reaction (Verified 08/21/19 15:40) - Review of Systems Constitutional: See HPI Eyes: See HPI ENT: See HPI Respiratory: See HPI Cardiovascular: See HPI Gastrointestinal: See HPI Genitourinary: See HPI Musculoskeletal: See HPI Skin: See HPI Neurological: See HPI - Physical Exam Vital Signs: Blood Pressure [Left Arm] 135/78 Oriented: Normal Eyes: Normal Ear: Normal Nose: Normal Throat: Normal Respiratory: Clear Throughout Cardiovascular: Normal : Normal Auscultation: Bowel Sounds: Normal Palpation: Normal Tenderness: Normal Skin: Normal Musculoskeletal: Normal Psychiatric: Normal Mood Description: Calm Affect: Anxious Speech Pattern: Clear - Assessment/Plan (1) Abdominal pain Qualifiers: Abdominal location: generalized Qualified Code(s): R10.84 - Generalized abdominal pain Status: Acute (2) Nausea & vomiting Qualifiers: Vomiting type: bilious vomiting Qualified Code(s): R11.14 - Bilious vomiting Status: Acute - Allergies Allergies/Adverse Reactions: Allergies Allergy/AdvReac Type Severity Reaction Status Date / Time latex Allergy Verified 08/21/19 15:40 Penicillins Allergy Verified 08/21/19 15:40 ceftazidime [From Fortaz] AdvReac Verified 08/21/19 15:40
[2019-11-02 14:12] LABS: BILIRUBIN,URINE NEGATIVE (NEGATIVE); BLOOD/HEMOGLOBIN,URINE NEGATIVE (NEGATIVE); GLUCOSE, URINE NEGATIVE (NEGATIVE); KETONES,URINE NEGATIVE (NEGATIVE); LEUKOCYTE ESTERASE ,URINE 1+ (NEGATIVE); NITRITES,URINE NEGATIVE (NEGATIVE); PROTEIN,URINE 2+ (NEGATIVE); UROBILINOGEN,URINE NORMAL (NORMAL)
[2019-11-02 14:18] LABS: APPEARANCE,URINE CLEAR (CLEAR); COLOR,URINE PALE YELLOW (YELLOW)
[2019-11-02 14:19] LABS: BACTERIA,URINE TRACE /HPF (NEGATIVE); RBC,URINE NONE SEEN /HPF (0-3); RENAL EPITHELIAL CELLS,URINE FEW /HPF (NEGATIVE); SQUAMOUS EPITHELIAL CELL,UR MANY /HPF (NEGATIVE)
[2019-11-02 14:21] LABS: BASOPHILS # (AUTO) 0.1 X10^3/uL (0.0-0.1); BASOPHILS % (AUTO) 0.9 % (0.2-1.0); EOSINOPHILS # (AUTO) 0.3 x10^3/uL (0.0-0.2); EOSINOPHILS % (AUTO) 2.5 % (0.9-2.9); HEMATOCRIT 30.1 % (36.0-47.0); HEMOGLOBIN 9.6 g/dL (12.0-16.0); LYMPHOCYTES # (AUTO) 4.2 X10^3/uL (1.3-2.9); LYMPHOCYTES % (AUTO) 34.4 % (21.0-51.0); MEAN CORPUSCULAR HEMOGLOBIN 28.2 pg (27.0-34.0); MEAN CORPUSCULAR HGB CONC 31.9 g/dL (33.0-35.0); MEAN CORPUSCULAR VOLUME 88.4 fL (80.0-100.0); MONOCYTES # (AUTO) 0.9 x10^3/uL (0.3-0.8); MONOCYTES % (AUTO) 7.7 % (0.0-13.0); NEUTROPHILS # (AUTO) 6.6 x10^3/uL (2.2-4.8); NEUTROPHILS % (AUTO) 54.5 % (42.0-75.0); PLATELET COUNT 263 X10^3/uL (150.0-450.0); RED BLOOD COUNT 3.41 X10^6/uL (3.5-5.4); RED CELL DISTRIBUTION WIDTH 14.7 % (11.6-16.5); WHITE BLOOD COUNT 12.1 X10^3/uL (3.6-10.0)
[2019-11-02 14:34] LABS: ALANINE AMINOTRANSFERASE 21 Units/L (12-78); ALBUMIN 3.4 g/dL (3.4-5.0); ALKALINE PHOSPHATASE 103 Units/L (46-116); ASPARTATE AMINO TRANSFERASE 16 Units/L (15-37); BLOOD UREA NITROGEN 33 mg/dL (7-18); CARBON DIOXIDE 25.2 mmol/L (21-32); CHLORIDE 100 mmol/L (98-107); CREATININE 2.18 mg/dL (0.55-1.02); SODIUM 135 mmol/L (136-145); TOTAL PROTEIN 7.4 g/dL (6.4-8.2); eGFR NON BLACK RACES 27 (>60)
[2019-11-02] MEDS ORDERED: PHENERGAN INJ 25 MG IM PRN (14:55)
[2019-11-02] MEDS: MORPHINE SULFATE INJ 2 MG INJ IVP PRN ×3 (15:39→23:56)
--- NOTE | 2019-11-02 16:20 | RAD ---
HISTORYABDOMINAL PAINSTUDYACUTE ABDOMEN [id number]/2020FINDINGSThe trachea is midline. The cardiomediastinal silhouette is unremarkable. The lungs are clear without focal consolidation. There is no effusion or pneumothorax. Osseous structures are unremarkable. Right chest wall MediPort unchanged in position.Supine and upright evaluation of the abdomen demonstrate multiple air-fluid level in the left abdomen and expected location of the ascending colon. No dilated bowel loop seen. There is no pneumoperitoneum. No pathological soft tissue mass or calcification can be observed. Osseous structures are unremarkable. Status post cholecystectomy.IMPRESSION1. No evidence of acute cardiopulmonary process2. Nonspecific multiple air-fluid levels in the left abdomen could reflect ileus. A few air-fluid level seen in the expected location of the ascending colon may be correlated clinically for diarrheal state. No air distended dilated bowel loops to suggest obstruction.Electronically signed by: Adriana Anthony (Nov 02, 2019 16:19:14)
[2019-11-02 17:21] VITALS: BMI 29.5
[2019-11-02] MEDS ORDERED: K-RIDER 10 MEQ/NS 100 ML 10 MEQ/100 ML BAG IV PRN (19:36)
[2019-11-02] MEDS ORDERED: KLOR-CON PO PRN (19:36)
[2019-11-02] MEDS ORDERED: MAGNESIUM SULFATE 1 GRAM/100 mL PREMIX 1 GM/100 ML BAG IV PRN (19:36)
[2019-11-02] MEDS ORDERED: K-DUR TAB 20 MEQ PO PRN (19:36)
[2019-11-02] MEDS ORDERED: MICRO K EXTEN CAP 10 MEQ PO PRN (19:36)
[2019-11-02] MEDS ORDERED: POTASSIUM CHLORIDE LIQ 20 MEQ UDC PO PRN (19:36)
[2019-11-02] MEDS ORDERED: POTASSIUM CHL 40 MEQ/NS 0.45% 500 ML IV PRN (19:36)
[2019-11-02] MEDS ORDERED: POTASSIUM CHL 60 MEQ/NS 0.45% 500 ML IV PRN (19:36)
[2019-11-03] MEDS: MORPHINE SULFATE INJ 2 MG INJ IVP PRN ×4 (03:58→19:57)
[2019-11-03 06:31] LABS: BASOPHILS # (AUTO) 0.1 X10^3/uL (0.0-0.1); BASOPHILS % (AUTO) 0.7 % (0.2-1.0); EOSINOPHILS # (AUTO) 0.3 x10^3/uL (0.0-0.2); EOSINOPHILS % (AUTO) 3.5 % (0.9-2.9); HEMATOCRIT 29.4 % (36.0-47.0); HEMOGLOBIN 9.5 g/dL (12.0-16.0); LYMPHOCYTES # (AUTO) 3.2 X10^3/uL (1.3-2.9); MEAN CORPUSCULAR HEMOGLOBIN 28.7 pg (27.0-34.0); MEAN CORPUSCULAR HGB CONC 32.3 g/dL (33.0-35.0); MEAN CORPUSCULAR VOLUME 88.8 fL (80.0-100.0); MEAN PLATELET VOLUME 9.5 fL (7.4-11.0); MONOCYTES # (AUTO) 0.7 x10^3/uL (0.3-0.8); MONOCYTES % (AUTO) 8.3 % (0.0-13.0); NEUTROPHILS # (AUTO) 4.2 x10^3/uL (2.2-4.8); NEUTROPHILS % (AUTO) 49.5 % (42.0-75.0); PLATELET COUNT 238 X10^3/uL (150.0-450.0); RED BLOOD COUNT 3.31 X10^6/uL (3.5-5.4); WHITE BLOOD COUNT 8.6 X10^3/uL (3.6-10.0)
[2019-11-03 06:42] LABS: ALANINE AMINOTRANSFERASE 22 Units/L (12-78); ALBUMIN 3.3 g/dL (3.4-5.0); ALKALINE PHOSPHATASE 97 Units/L (46-116); ASPARTATE AMINO TRANSFERASE 17 Units/L (15-37); BLOOD UREA NITROGEN 34 mg/dL (7-18); CALCIUM 9.1 mg/dL (8.5-10.1); CARBON DIOXIDE 25.6 mmol/L (21-32); CHLORIDE 101 mmol/L (98-107); COR CA(FOR HYPOALB) 9.7 mg/dL (8.5-10.1); CREATININE 2.42 mg/dL (0.55-1.02); SODIUM 136 mmol/L (136-145); TOTAL PROTEIN 7.1 g/dL (6.4-8.2); eGFR NON BLACK RACES 24 (>60)
[2019-11-03] MEDS: NS 1000 ML 1,000 ML IV SCH (10:18)
[2019-11-03 14:55] LABS: ALANINE AMINOTRANSFERASE 20 Units/L (12-78); ALBUMIN 3.4 g/dL (3.4-5.0); ALKALINE PHOSPHATASE 105 Units/L (46-116); ASPARTATE AMINO TRANSFERASE 15 Units/L (15-37); BLOOD UREA NITROGEN 31 mg/dL (7-18); CALCIUM 9.1 mg/dL (8.5-10.1); CARBON DIOXIDE 25.7 mmol/L (21-32); CHLORIDE 99 mmol/L (98-107); CREATININE 2.24 mg/dL (0.55-1.02); SODIUM 135 mmol/L (136-145); TOTAL PROTEIN 7.7 g/dL (6.4-8.2); eGFR NON BLACK RACES 26 (>60)
[2019-11-03] MEDS: LEVSIN/MAALOX/LIDOC VISC PO SCH ×3 (16:36→20:00)
[2019-11-03] MEDS: PROTONIX INJ 40 MG VIAL IVP SCH (16:36)
--- NOTE | 2019-11-03 18:09 | PCM.PROG ---
Progress Note - Progress Note for Day of Date of Exam: 11/03/19 - Subjective Subjective: PT IS 34 BF DIRECT ADMIT FROM DR BLAIRE PALOMINO OFFICE WITH DEHYDRATION, ABDOMINAL PAIN, WEAKNESS. PT HAD ELEVATED BUN AND CREATNINE ON ADMISSION. BUN 31, CREAT 2.24. WBC DOWN FROM 12.1 TO 8.6. PT NPO SINCE ADMISSION. RESTARTED ON REGLAN IV FOR GASTROPARESIS AND NAUSEA. PLAN TO ADVANCE DIET TO CLEAR LIQUIDS. POTASSIUM REPLACEMENT, ENCOURAGED ORAL HYDRATION. - Past Medical Family Social History Past Med/Fam/Surg Hx: No changes since H&P Allergies: Allergies latex Allergy (Verified 08/21/19 15:40) Penicillins Allergy (Verified 08/21/19 15:40) ceftazidime [From Fortaz] Adverse Reaction (Verified 08/21/19 15:40) - Review of Systems ROS: No change since H&P - Vital Signs and I&O's Vital Signs: Temperature 98.7 F Pulse Rate [Left Brachial] 84 Respiratory Rate 20 Blood Pressure [Left Arm] 108/86 O2 Sat by Pulse Oximetry 93 Intake and Output: Intake & Output 11/01/19 11/02/19 11/03/19 11/04/19 11:59 11:59 11:59 11:59 Intake Total 310 / 310 850 / 850 Output Total Balance 309 / 309 849 / 849 - Physical Exam Oriented: Normal Eyes: Normal Ear: Normal Nose: Normal Throat: Normal Respiratory: Normal Cardiovascular: Normal : Normal Auscultation: Bowel Sounds: Normal Tenderness: LUQ, Epigastric Skin: Decreased Turgur Musculoskeletal: Normal, Deformity Psychiatric: Normal Mood Description: Calm Affect: Anxious Speech Pattern: Clear, Appropriate - Laboratory and Diagnostics Result Diagrams: 11/03/19 05:57 11/03/19 14:25 Labs: Laboratory WBC 8.6 X10^3/uL (3.6-10.0) 11/03/19 05:57 RBC 3.31 X10^6/uL (3.5-5.4) L 11/03/19 05:57 Hgb 9.5 g/dL (12.0-16.0) L 11/03/19 05:57 Hct 29.4 % (36.0-47.0) L 11/03/19 05:57 MCV 88.8 fL (80.0-100.0) 11/03/19 05:57 MCH 28.7 pg (27.0-34.0) 11/03/19 05:57 MCHC 32.3 g/dL (33.0-35.0) L 11/03/19 05:57 RDW 15.0 % (11.6-16.5) 11/03/19 05:57 Plt Count 238 X10^3/uL (150.0-450.0) 11/03/19 05:57 MPV 9.5 fL (7.4-11.0) 11/03/19 05:57 Neut % (Auto) 49.5 % (42.0-75.0) 11/03/19 05:57 Lymph % (Auto) 38.0 % (21.0-51.0) 11/03/19 05:57 [place] % (Auto) 8.3 % (0.0-13.0) 11/03/19 05:57 Eos % (Auto) 3.5 % (0.9-2.9) H 11/03/19 05:57 Baso % (Auto) 0.7 % (0.2-1.0) 11/03/19 05:57 Neut # (Auto) 4.2 x10^3/uL (2.2-4.8) 11/03/19 05:57 Lymph # (Auto) 3.2 X10^3/uL (1.3-2.9) H 11/03/19 05:57 [place] # (Auto) 0.7 x10^3/uL (0.3-0.8) 11/03/19 05:57 Eos # (Auto) 0.3 x10^3/uL (0.0-0.2) H 11/03/19 05:57 Baso # (Auto) 0.1 X10^3/uL (0.0-0.1) 11/03/19 05:57 Absolute Nucleated RBC 0.0 /100WBC 11/03/19 05:57 Sodium 135 mmol/L (136-145) L 11/03/19 14:25 Corrected Sodium TNP 11/03/19 14:25 Potassium 3.6 mmol/L (3.5-5.1) 11/03/19 14:25 Chloride 99 mmol/L (98-107) 11/03/19 14:25 Carbon Dioxide 25.7 mmol/L (21-32) 11/03/19 14:25 BUN 31 mg/dL (7-18) H 11/03/19 14:25 Creatinine 2.24 mg/dL (0.55-1.02) H 11/03/19 14:25 Est GFR (MDRD) Af Amer 32 (>60) L 11/03/19 14:25 Est GFR (MDRD) Non-Af 26 (>60) L 11/03/19 14:25 Glucose 105 mg/dL (65-99) H 11/03/19 14:25 POC Glucose (mg/dL) 95 mg/dL (65-99) 11/03/19 16:11 Calcium 9.1 mg/dL (8.5-10.1) 11/03/19 14:25 Corrected Calcium TNP 11/03/19 14:25 Magnesium 2.1 mg/dL (1.7-2.9) 11/02/19 14:10 Total Bilirubin 0.30 mg/dL (0.2-1.0) 11/03/19 14:25 AST 15 Units/L (15-37) 11/03/19 14:25 ALT 20 Units/L (12-78) 11/03/19 14:25 Alkaline Phosphatase 105 Units/L (46-116) 11/03/19 14:25 Total Protein 7.7 g/dL (6.4-8.2) 11/03/19 14:25 Albumin 3.4 g/dL (3.4-5.0) 11/03/19 14:25 Globulin 4.3 g/dL (2.5-4.5) 11/03/19 14:25 Albumin/Globulin Ratio 0.8 Ratio (1.1-2.1) L 11/03/19 14:25 Specimen Type Clean catch urine 11/02/19 13:30 Urine Color Pale yellow (YELLOW) 11/02/19 13:30 Urine Appearance Clear (CLEAR) 11/02/19 13:30 Urine pH 8.0 (5.0 - 8.0) 11/02/19 13:30 Ur Specific [place] 1.015 (1.000-1.030) 11/02/19 13:30 Urine Protein 2+ (NEGATIVE) 11/02/19 13:30 Urine Glucose (UA) Negative (NEGATIVE) 11/02/19 13:30 Urine Ketones Negative (NEGATIVE) 11/02/19 13:30 Urine Occult Blood Negative (NEGATIVE) 11/02/19 13:30 Urine Nitrite Negative (NEGATIVE) 11/02/19 13:30 Urine Bilirubin Negative (NEGATIVE) 11/02/19 13:30 Urine Urobilinogen Normal (NORMAL) 11/02/19 13:30 Ur Leukocyte Esterase 1+ (NEGATIVE) 11/02/19 13:30 Urine RBC None seen /HPF (0-3) 11/02/19 13:30 Urine WBC 3-5 /HPF (0-5) 11/02/19 13:30 Ur Squamous Epith Cells Many /HPF (NEGATIVE) 11/02/19 13:30 Ur Renal Epithelial Cell Few /HPF (NEGATIVE) 11/02/19 13:30 Urine Bacteria Trace /HPF (NEGATIVE) 11/02/19 13:30 Ur Culture Indicated? No/not indicated 11/02/19 13:30 - Plan (1) Abdominal pain Status: Acute Qualifiers: Abdominal location: generalized Qualified Code(s): R10.84 - Generalized abdominal pain Plan: CONTINUE GENTLE IV HYDRATION. PAIN CONTROL. PPI THERAPY, REGLAN IV, GI COCKTAIL. AM LABS, BP CONTROL. BS CONTROL (2) Gastroparesis Status: Acute (3) Hypokalemia Status: Acute (4) CKD (chronic kidney disease) stage 4, GFR 15-29 ml/min Status: Chronic (5) Diabetic nephropathy Status: Chronic Qualifiers: Diabetes mellitus type: type 1 Qualified Code(s): E10.21 - Type 1 diabetes mellitus with diabetic nephropathy (6) Essential hypertension Status: Chronic
[2019-11-03] MEDS: REGLAN INJ 10 MG VIAL IVP PRN (20:44)
[2019-11-04] MEDS: MORPHINE SULFATE INJ 2 MG INJ IVP PRN ×2 (01:57→08:29)
[2019-11-04] MEDS: NS 1000 ML 1,000 ML IV SCH (03:27)
[2019-11-04 06:39] LABS: BASOPHILS % (AUTO) 0.6 % (0.2-1.0); EOSINOPHILS # (AUTO) 0.3 x10^3/uL (0.0-0.2); EOSINOPHILS % (AUTO) 3.6 % (0.9-2.9); HEMOGLOBIN 8.8 g/dL (12.0-16.0); LYMPHOCYTES # (AUTO) 3.1 X10^3/uL (1.3-2.9); LYMPHOCYTES % (AUTO) 39.6 % (21.0-51.0); MEAN CORPUSCULAR HEMOGLOBIN 28.9 pg (27.0-34.0); MEAN CORPUSCULAR HGB CONC 32.7 g/dL (33.0-35.0); MEAN CORPUSCULAR VOLUME 88.1 fL (80.0-100.0); MEAN PLATELET VOLUME 9.3 fL (7.4-11.0); MONOCYTES # (AUTO) 0.6 x10^3/uL (0.3-0.8); MONOCYTES % (AUTO) 7.7 % (0.0-13.0); NEUTROPHILS # (AUTO) 3.7 x10^3/uL (2.2-4.8); NEUTROPHILS % (AUTO) 48.5 % (42.0-75.0); PLATELET COUNT 201 X10^3/uL (150.0-450.0); RED BLOOD COUNT 3.07 X10^6/uL (3.5-5.4); RED CELL DISTRIBUTION WIDTH 14.6 % (11.6-16.5); WHITE BLOOD COUNT 7.7 X10^3/uL (3.6-10.0)
[2019-11-04 07:02] LABS: ALANINE AMINOTRANSFERASE 19 Units/L (12-78); ALKALINE PHOSPHATASE 89 Units/L (46-116); ASPARTATE AMINO TRANSFERASE 13 Units/L (15-37); BLOOD UREA NITROGEN 35 mg/dL (7-18); CALCIUM 8.7 mg/dL (8.5-10.1); CARBON DIOXIDE 25.3 mmol/L (21-32); CHLORIDE 103 mmol/L (98-107); COR CA(FOR HYPOALB) 9.5 mg/dL (8.5-10.1); CREATININE 1.98 mg/dL (0.55-1.02); SODIUM 136 mmol/L (136-145); TOTAL PROTEIN 6.5 g/dL (6.4-8.2); eGFR NON BLACK RACES 30 (>60)
[2019-11-04] MEDS: REGLAN INJ 10 MG VIAL IVP PRN (08:15)
[2019-11-04] MEDS ORDERED: MORPHINE SULFATE INJ 2 MG INJ ONE (08:19)
[2019-11-04] MEDS: LEVSIN/MAALOX/LIDOC VISC PO SCH (10:18)
[2019-11-04] MEDS: PROTONIX INJ 40 MG VIAL IVP SCH (10:19)
[2019-11-04] MEDS ORDERED: PERCOCET TAB 5/325 MG PO PRN (10:47)
[2019-11-04] MEDS ORDERED: COREG TAB 3.125 MG PO SCH (11:00)
[2019-11-04] MEDS ORDERED: HEMOCYTE-PLUS PO SCH (12:00)
[2019-11-04 13:34] VITALS: BP 117/82
--- NOTE | 2019-11-04 13:35 | RAD ---
[id number]/17/2020FINDINGSThere is slight gaseous distention of scattered segmen ts of small and large bowel in a nonobstructing pattern. No evidence for ascites, mass formation or u rinary calcification. There is a 5.0 mm calcification adjacent to the left transverse process of L3.I MPRESSIONNo acute findings identified. The left paralumbar calcification was present on 11/02/[address] exam of 10/25/2019 did not describe renal or ureteral calculi. This may be vascular. However , correlate clinically for any indications of left ureteral calculus.Electronically signed by: HAM SANCHEZ (Nov 04, 2019 13:33:58)
== END 2019-11-04 14:00 | disposition home or self-care (01) | DRG 684 ==
LOC: MED/SURG → OBS 15:58
PROVIDERS: ADMIT Internal Medicine; ATTEND Internal Medicine
DX: E10.21 Type 1 diabetes mellitus with diabetic nephropathy; E10.65 Type 1 diabetes mellitus with hyperglycemia; N18.4 Chronic kidney disease, stage 4 (severe); K21.9 Gastro-esophageal reflux disease without esophagitis; I13.10 Hypertensive heart and chronic kidney disease without heart failure, with stage 1 through stage 4 chronic kidney disease, or unspecified chronic kidney disease; R10.84 Generalized abdominal pain; R11.14 Bilious vomiting; E86.0 Dehydration; E87.6 Hypokalemia; E10.43 Type 1 diabetes mellitus with diabetic autonomic (poly)neuropathy; N17.8 Other acute kidney failure; K31.84 Gastroparesis; I25.10 Atherosclerotic heart disease of native coronary artery without angina pectoris; F41.8 Other specified anxiety disorders
CPT/HCPCS: 36415; 74000; 74018; 74022; 80053; 81001; 82607; 82728; 82746; 83540; 83735; 84466; 85025; A4216; C9113; G0378; J2270; J2550; J2765; J7030

== ENCOUNTER 2020-01-21 09:05 | Observation (INO) ==
[2020-01-21] MEDS ORDERED: NS 1000 ML 1,000 ML IV ONE (09:37)
[2020-01-21] MEDS ORDERED: TORADOL 30 MG VIAL IVP ONE (09:38)
[2020-01-21] MEDS ORDERED: ZOFRAN INJ 4 MG VIAL IVP ONE (09:38)
[2020-01-21] MEDS ORDERED: REGLAN INJ 10 MG VIAL IVP STA (09:39)
[2020-01-21] MEDS ORDERED: BENADRYL INJ 50 MG VIAL IVP ONE (09:39)
--- NOTE | 2020-01-21 09:41 | DR.NAUSEAF ---
HPI - Time Seen Time seen: 09:37 - Primary Care Physician Primary Care Physician: Molina - Complaints Chief Complaint Doctors Comments: Patient is compaining of hurting all over with persistent nausea, vomiting for the past two days getting progressivey worst. States she called Dr. Auguste and he did not have any opening and they told her to come to the emergency room. States she tried to take her medicines with her pain medicines today but she threw it back up. She denies cold, cough, fever, chills or diarrhea. States she has not been around anyone with the COVID virus. She denies hematuria or dysuria. states her pain is 10 of 10. States she has had a hysterectomy. Chief Complaint:: nausea, vomiting, generalized pain x 2 days Self Treatment fo Chief Complaint: zofran, phenergan, reglan, oxycodone - Reviewed Nurses Notes Reviewed: Yes - Source History Provided: Patient - Mode of Arrival Mode of Arrival: Wheelchair - Timing Onset of Chief Complaint: 01/19/20 - Context Onset: Spontaneous Possible Ingestion: Unknown : No History of: None - Quality Quality: Bilious - Associated Signs and Symptoms Abdominal Pain Quality: Cramping, Sharp Abdominal Pain Location: Diffuse Symptoms: Abdominal Pain PMH - PMH Past Medical History: Yes Past Medical History: Coronary Artery Disease, Hypertension, Diabetes, Renal Disease, Anxiety, PUD, GERD Past Surgical History: Yes Surgical History: Cholecystectomy, Other - Family History History of Family Medical Conditions: Yes Family Medical History: Diabetes Mellitus, Coronary Artery Disease - Social History Alcohol Use: None Do you use any recreational Drugs:: No Lives With: Family Lives Where: Home - infectious screening In the last 2 months have you had wt loss of >10#?: NO Have you traveled outside the country in the last 6 months?: No Isolation: Standard ROS - Review of Systems Constitutional: No Symptoms Reported, Loss of Appetite Eyes: No Symptoms Reported ENTM: No Symptoms Reported Respiratoy: No Symptoms Reported. negative: See HPI, Productive Cough, Non-Pro ductive Cough, Moist Cough, Dry Cough, Hacking Cough, Barking Cough, Brassy Cough, Orthopnea, Short of Breath, Stridor, Wheezing, Hemoptysis, Other Cardiovascular: No Symptoms Reported. negative: See HPI, Chest Pain, Edema, Palpitations, Syncope, Cyanosis, Skin Mottling, Other Gastrointestinal/Abdominal: No Symptoms Reported, Abdominal Pain, Nausea, Vomiting Genitourinary: No Symptoms Reported Neurological: No Symptoms Reported, Anxiety Musculoskeletal: No Symptoms Reported Integumentary: No Symptoms Reported Hematologic/Lymphatic: No Symptoms Reported Endocrine: No Symptoms Reported Psychiatric: No Symptoms Reported, Anxiety. negative: See HPI, Depression, Hallucinations, Excessive crying, Suicidal, Other PE - General Limitations: No Limitations General Appearance: Alert, In Distress (moderate) - Head Head Exam: Normal Inspection, Atraumatic, Normocephalic - Eyes Eye exam: Normal Appearance, PERRL, EOMI. negative: Scleral Icterus, Conjunctival Injection, Nystagmus, Miosis, Mydrasis, Periorbital Swelling, Periorbital Tenderness, Other - ENT ENT Exam: Normal Exam, Normal Oropharynx, Normal External Ear Exam, Mucous Membranes Moist, TM's Normal Bilaterally - Neck Neck Exam: Normal Inspection, Full ROM, Trachea Midline - Chest Chest Inspection: Normal Inspection, Symmetric Chest Wall Rise - Respiratory Respiratory Exam: Normal Lung Sounds Bilat Respiratory Exam: Bilateral Clear to Auscultation - Cardiovascular Cardiovascular Exam: Regular Rate, Normal Rhythm, Normal Heart Sounds - Abdominal Exam Abdominal Exam: Normal Inspection, Normal Bowel Sounds, Soft, Tenderness Abdominal Tenderness: Diffuse, Mild - Rectal Rectal Exam: Deferred - External Exam: Female: Deferred : Speculum Exam (Female): Deferred : Bimanual Exam (female): Deferred - Extremities Extremities Exam: Normal Inspection, Full ROM, Normal Capillary Refill. negative: Tenderness, Edema, Joint Swelling, Calf Tenderness, Other - Back Back Exam: Normal Inspection, Full ROM. negative: Tenderness, (R) CVA Tender ness, (L) CVA Tenderness, Muscle Spasm, Paraspinal Tenderness, Vertebral Tenderness, Rashes, (R) Sciatic Notch Tenderness, (L) Sciatic Notch Tendern, (R) Straight Leg Raise, (L) Straight Leg Raise, Other - Neurologic Neurological Exam: Alert, Oriented X3, CN II-XII Intact, Normal Gait, Reflexes Normal - Psychiatric Psychiatric Exam: Normal Affect, Normal Mood. negative: Depressed, Agitated, Anxious, Flat Affect, Manic, Homicidal Ideation, Suicidal Ideation, Other - Skin Skin Exam: Warm, Dry, Intact, Normal Color - Vital Signs Vitals: Temperature 99.5 F Pulse Rate 93 Respiratory Rate 20 Blood Pressure [Left Arm] 156/79 Blood Pressure [Right Arm] 140/81 Blood Pressure [Left Arm] 144/81 Blood Pressure 121/80 O2 Sat by Pulse Oximetry 98 Course - Reevaluation 1st: Improved - Consultation Called: :33 Call Returned: 11:33 (Dr. Cotter to admit) - Education/Counseling Education/Counseling: Patient, Family Educated On: Treatment, Diagnosis, Needs for Follow Up ROR - Labs Reviewed Laboratory Results Reviewed?: Yes (All labs and x-ray results reviewed and discussed with patient) Result Diagrams: 01/21/20 10:05 01/21/20 10:05 - XRAY XRAY Interpreted by: Radiologist (CT abdomen/pelvis: Mild scattered diverticuosis without evidence for diverticulitis) - Labs Reviewed Laboratory: WBC 9.5 X10^3/uL (3.6-10.0) 01/21/20 10:05 RBC 4.07 X10^6/uL (3.5-5.4) 01/21/20 10:05 Hgb 11.4 g/dL (12.0-16.0) L 01/21/20 10:05 Hct 35.0 % (36.0-47.0) L 01/21/20 10:05 MCV 85.9 fL (80.0-100.0) 01/21/20 10:05 MCH 27.9 pg (27.0-34.0) 01/21/20 10:05 MCHC 32.5 g/dL (33.0-35.0) L 01/21/20 10:05 RDW 15.9 % (11.6-16.5) 01/21/20 10:05 Plt Count 437 X10^3/uL (150.0-450.0) 01/21/20 10:05 Plt Count Comment Adequate (ADEQUATE) 01/21/20 10:05 MPV 9.5 fL (7.4-11.0) 01/21/20 10:05 Neut % (Auto) 69.6 % (42.0-75.0) 01/21/20 10:05 Lymph % (Auto) 23.2 % (21.0-51.0) 01/21/20 10:05 [place] % (Auto) 3.8 % (0.0-13.0) 01/21/20 10:05 Eos % (Auto) 1.3 % (0.9-2.9) 01/21/20 10:05 Baso % (Auto) 2.1 % (0.2-1.0) H 01/21/20 10:05 Neut # (Auto) 6.6 x10^3/uL (2.2-4.8) H 01/21/20 10:05 Lymph # (Auto) 2.2 X10^3/uL (1.3-2.9) 01/21/20 10:05 [place] # (Auto) 0.4 x10^3/uL (0.3-0.8) 01/21/20 10:05 Eos # (Auto) 0.1 x10^3/uL (0.0-0.2) 01/21/20 10:05 Baso # (Auto) 0.2 X10^3/uL (0.0-0.1) H 01/21/20 10:05 Absolute Nucleated RBC 0.1 /100WBC 01/21/20 10:05 Total Counted 100 01/21/20 10:05 Neutrophils % (Manual) 70 % (39-76) 01/21/20 10:05 Lymphocytes % (Manual) 25 % (13-43) 01/21/20 10:05 Monocytes % (Manual) 4 % (4-9) 01/21/20 10:05 Eosinophils % (Manual) 1 % (0-6) 01/21/20 10:05 Plt Morphology Comment Normal (NORMAL) 01/21/20 10:05 RBC Morphology Normal (NORMAL) 01/21/20 10:05 Sodium 140 mmol/L (136-145) 01/21/20 10:05 Corrected Sodium 143 mmol/L (136-145) 01/21/20 10:05 Potassium 4.0 mmol/L (3.5-5.1) 01/21/20 10:05 Chloride 103 mmol/L (98-107) 01/21/20 10:05 Carbon Dioxide 27.6 mmol/L (21-32) 01/21/20 10:05 BUN 27 mg/dL (7-18) H 01/21/20 10:05 Creatinine 1.90 mg/dL (0.55-1.02) H 01/21/20 10:05 Est GFR (MDRD) Af Amer 39 (>60) L 01/21/20 10:05 Est GFR (MDRD) Non-Af 32 (>60) L 01/21/20 10:05 Glucose 211 mg/dL (65-99) H 01/21/20 10:05 Calcium 9.6 mg/dL (8.5-10.1) 01/21/20 10:05 Corrected Calcium TNP 01/21/20 10:05 Total Bilirubin 0.30 mg/dL (0.2-1.0) 01/21/20 10:05 AST 13 Units/L (15-37) L 01/21/20 10:05 ALT 23 Units/L (12-78) 01/21/20 10:05 Alkaline Phosphatase 147 Units/L (46-116) H 01/21/20 10:05 Total Protein 8.5 g/dL (6.4-8.2) H 01/21/20 10:05 Albumin 3.7 g/dL (3.4-5.0) 01/21/20 10:05 Globulin 4.8 g/dL (2.5-4.5) H 01/21/20 10:05 Albumin/Globulin Ratio 0.8 Ratio (1.1-2.1) L 01/21/20 10:05 Amylase 183 Units/L (25-115) H 01/21/20 10:05 Lipase 828 Units/L (73-393) H 01/21/20 10:05 Opioid - Opioid Risk Tool Age (Duc box if 16-45): Yes History of Preadolescent Sexual Abuse: No Total: 1 Total Score Risk Category: Low Risk - Diagnosis Discharge Problem: Nausea and vomiting in adult patient, Gastroparesis, Intractable abdominal pain, Dehydration, Diverticulosis of colon Acute pancreatitis Qualifiers: Pancreatitis type: idiopathic Acute pancreatitis complication: unspecified Qualified Code(s): K85.00 - Idiopathic acute pancreatitis without necrosis or infection Uncontrolled diabetes mellitus Qualifiers: Diabetes mellitus type: due to underlying condition Glycemic state: with hyperglycemia Qualified Code(s): E08.65 - Diabetes mellitus due to underlying condition with hyperglycemia Chronic kidney disease (CKD) Qualifiers: Chronic kidney disease stage: stage 3 (moderate) Qualified Code(s): N18.3 - Chronic kidney disease, stage 3 (moderate) - Discharge Plan Disposition: ADMITTED INPATIENT Condition: Stable - Follow ups/Referrals Follow ups/Referrals: KOREY AUGUSTE [Primary Care Provider] - 3 days - Instructions
[2020-01-21] MEDS ORDERED: NS 1000 ML 1,000 ML ONE ×2 (09:45→18:38)
[2020-01-21] MEDS ORDERED: ZOFRAN INJ 4 MG VIAL ONE (10:24)
[2020-01-21] MEDS ORDERED: BENADRYL INJ 50 MG VIAL ONE (10:24)
[2020-01-21] MEDS ORDERED: REGLAN INJ 10 MG VIAL ONE (10:24)
[2020-01-21] MEDS ORDERED: TORADOL 30 MG VIAL ONE (10:24)
[2020-01-21 10:27] LABS: BASOPHILS # (AUTO) 0.2 X10^3/uL (0.0-0.1); BASOPHILS % (AUTO) 2.1 % (0.2-1.0); EOSINOPHILS # (AUTO) 0.1 x10^3/uL (0.0-0.2); EOSINOPHILS % (AUTO) 1.3 % (0.9-2.9); HEMOGLOBIN 11.4 g/dL (12.0-16.0); LYMPHOCYTES # (AUTO) 2.2 X10^3/uL (1.3-2.9); LYMPHOCYTES % (AUTO) 23.2 % (21.0-51.0); MEAN CORPUSCULAR HEMOGLOBIN 27.9 pg (27.0-34.0); MEAN CORPUSCULAR HGB CONC 32.5 g/dL (33.0-35.0); MEAN CORPUSCULAR VOLUME 85.9 fL (80.0-100.0); MEAN PLATELET VOLUME 9.5 fL (7.4-11.0); MONOCYTES # (AUTO) 0.4 x10^3/uL (0.3-0.8); MONOCYTES % (AUTO) 3.8 % (0.0-13.0); NEUTROPHILS # (AUTO) 6.6 x10^3/uL (2.2-4.8); NEUTROPHILS % (AUTO) 69.6 % (42.0-75.0); PLATELET COUNT 437 X10^3/uL (150.0-450.0); RED BLOOD COUNT 4.07 X10^6/uL (3.5-5.4); RED CELL DISTRIBUTION WIDTH 15.9 % (11.6-16.5); WHITE BLOOD COUNT 9.5 X10^3/uL (3.6-10.0)
[2020-01-21 10:30] LABS: ALANINE AMINOTRANSFERASE 23 Units/L (12-78); ALBUMIN 3.7 g/dL (3.4-5.0); ALKALINE PHOSPHATASE 147 Units/L (46-116); AMYLASE 183 Units/L (25-115); ASPARTATE AMINO TRANSFERASE 13 Units/L (15-37); BLOOD UREA NITROGEN 27 mg/dL (7-18); CALCIUM 9.6 mg/dL (8.5-10.1); CARBON DIOXIDE 27.6 mmol/L (21-32); CHLORIDE 103 mmol/L (98-107); COR NA(FOR HYPERGLY) 143 mmol/L (136-145); LIPASE 828 Units/L (73-393); SODIUM 140 mmol/L (136-145); TOTAL PROTEIN 8.5 g/dL (6.4-8.2); eGFR NON BLACK RACES 32 (>60)
[2020-01-21] MEDS ORDERED: ATIVAN INJ 2 MG VIAL ONE (10:39)
[2020-01-21 10:48] LABS: PLATELET MORPHOLOGY COMMENT NORMAL (NORMAL)
[2020-01-21] MEDS: ATIVAN INJ 2 MG VIAL IVP STA ×2 (10:52→13:09)
[2020-01-21] MEDS ORDERED: MORPHINE SULFATE INJ 2 MG INJ IVP ONE (11:04)
[2020-01-21] MEDS ORDERED: MORPHINE SULFATE INJ 2 MG INJ ONE (11:05)
--- NOTE | 2020-01-21 11:17 | CT ---
HISTORYABDIMINAL PAIN, VOMITINGSTUDYABDOMEN/PELVIS W/O CONCOMPARISONJune 2019TECHNIQUEMultiple axial images of the abdomen and pelvis were obtained from the lung bases to the pubic symphysis without the administration of IV contrast. Dose reduction techniques including Automated Exposure Control (AEC) and adjustment of mA and kV were utilized.FINDINGSThe visualized portions of the lung bases are unremarkable . The liver, spleen, pancreas, kidneys, and adrenal glands are unremarkable in their noncontrast CT appearance. The gallbladder is surgically absent.. No significant mesenteric lymphadenopathy or stranding can be observed. No free fluid or free air is seen within the abdomen. No bowel wall thickening or bowel dilatation is present. The colon demonstrates scattered diverticulosis without evidence for diverticulitis. The appendix is normal.. The urinary bladder is grossly unremarkable. The bony structures are stable with chronic sclerosis and fusion at L4-5 probably post infectious in nature.IMPRESSIONMild scattered diverticulosis without evidence for diverticulitis.Electronically signed by: LISBETH CURRIE (Jan 21, 2020 11:17:04)
[2020-01-21] MEDS ORDERED: ZOFRAN INJ 4 MG VIAL IVP PRN (11:38)
[2020-01-21] MEDS ORDERED: PEPCID 20 MG IV PREMIX* 20 MG/50 ML BAG IV PRN (11:38)
[2020-01-21] MEDS ORDERED: PERCOCET TAB 5/325 MG PO PRN (11:38)
[2020-01-21] MEDS ORDERED: HumuLIN R SC PRN (11:40)
[2020-01-21] MEDS ORDERED: DILAUDID INJ IM PRN (15:16)
[2020-01-21] MEDS ORDERED: DILAUDID INJ ONE ×3 (15:18→23:55)
[2020-01-21] MEDS: DILAUDID INJ IVP PRN ×3 (15:24→23:56)
[2020-01-21] MEDS: NS 1000 ML 1,000 ML IV SCH (18:41)
[2020-01-21] MEDS ORDERED: PHENERGAN INJ 25 MG IM ONE (20:03)
[2020-01-21] MEDS: PHENERGAN INJ 25 MG IM PRN (20:04)
[2020-01-22] MEDS ORDERED: ZOFRAN INJ 4 MG VIAL ONE (03:57)
[2020-01-22] MEDS ORDERED: DILAUDID INJ ONE ×2 (03:58→07:56)
[2020-01-22] MEDS: DILAUDID INJ IVP PRN ×3 (04:07→12:00)
[2020-01-22 06:56] LABS: AMYLASE 69 Units/L (25-115); BLOOD UREA NITROGEN 21 mg/dL (7-18); CALCIUM 8.6 mg/dL (8.5-10.1); CARBON DIOXIDE 25.6 mmol/L (21-32); CHLORIDE 104 mmol/L (98-107); CREATININE 1.48 mg/dL (0.55-1.02); LIPASE 174 Units/L (73-393); SODIUM 138 mmol/L (136-145); eGFR NON BLACK RACES 43 (>60)
[2020-01-22] MEDS: NS 1000 ML 1,000 ML IV SCH ×4 (07:23→20:41)
[2020-01-22] MEDS ORDERED: LIORESAL PO PRN (09:04)
[2020-01-22 09:17] VITALS: BMI 29.8
[2020-01-22] MEDS: FERROUS GLUCONATE PO SCH ×2 (11:00→22:07)
[2020-01-22] MEDS: COREG TAB 3.125 MG PO SCH ×2 (11:01→20:41)
[2020-01-22] MEDS: APRESOLINE TAB 25 MG PO SCH ×2 (11:01→20:30)
[2020-01-22] MEDS: PROTONIX TAB 40 MG PO SCH (11:01)
[2020-01-22] MEDS: LOVENOX INJ 100 MG SYR SC SCH ×2 (12:00→20:42)
--- NOTE | 2020-01-22 12:23 | DR.H&P ---
H&P History & Physical for Day of: H&P Date: 01/22/20 Chief Complaint Chief Complaint: abdominal pain, N/V Allergies Allergies Allergy/AdvReac Type Severity Reaction Status Date / Time Penicillins Allergy Verified 01/21/20 09:15 History of Present Illness History of Present Illness: Ms. Hines is a 34y/o female with DM, above knee amputation, Gastroparesis, CAD s/p PCI and left arm DVT that presented with worsening nausea, vomiting and abdominal pain. Patient reports her Sx started couple days ago and have been worsening. She has not been able to keep anything down. Denies fever or chills. She has had recurrent admissions for similar symptoms. ER course - Labs: Hgb 11.7 WBC: 12.6 Lipase and amylase elevated Cr: 1.90 Patient received IVF, Reglan and Phenergan - CTAP was done which showed Mild scattered diverticulosis without evidence for diverticulitis. Normal pancreas. Patient was started on IVF, pain control, anti-emetics and kept NPO. Verify home medications. Past Medical History Past Medical History: Anxiety, Coronary Artery Disease, Diabetes, GERD, Hypertension, PUD and Renal Disease Additional Medical History: MORBID OBESITY, Pancreatitis, gastroparesis, osteomyelitis Past Surgical History Surgical History: Cholecystectomy and Other Additional Surgical History: BKA Family History Family Medical History: Diabetes Mellitus and Coronary Artery Disease Social History Does patient currently use any type of tobacco product: No Have you used tobacco products in the last 12 months: No Type of Tobacco Use: None Alcohol Use: None Drug Use: None Medications Home Medications: Penicillins Allergy (Verified 01/21/20 09:15) Labs Result Diagrams: 01/21/20 10:05 01/22/20 06:29 Labs: Laboratory WBC 9.5 X10^3/uL (3.6-10.0) 01/21/20 10:05 RBC 4.07 X10^6/uL (3.5-5.4) 01/21/20 10:05 Hgb 11.4 g/dL (12.0-16.0) L 01/21/20 10:05 Hct 35.0 % (36.0-47.0) L 01/21/20 10:05 MCV 85.9 fL (80.0-100.0) 01/21/20 10:05 MCH 27.9 pg (27.0-34.0) 01/21/20 10:05 MCHC 32.5 g/dL (33.0-35.0) L 01/21/20 10:05 RDW 15.9 % (11.6-16.5) 01/21/20 10:05 Plt Count 437 X10^3/uL (150.0-450.0) 01/21/20 10:05 Plt Count Comment Adequate (ADEQUATE) 01/21/20 10:05 MPV 9.5 fL (7.4-11.0) 01/21/20 10:05 Neut % (Auto) 69.6 % (42.0-75.0) 01/21/20 10:05 Lymph % (Auto) 23.2 % (21.0-51.0) 01/21/20 10:05 [place] % (Auto) 3.8 % (0.0-13.0) 01/21/20 10:05 Eos % (Auto) 1.3 % (0.9-2.9) 01/21/20 10:05 Baso % (Auto) 2.1 % (0.2-1.0) H 01/21/20 10:05 Neut # (Auto) 6.6 x10^3/uL (2.2-4.8) H 01/21/20 10:05 Lymph # (Auto) 2.2 X10^3/uL (1.3-2.9) 01/21/20 10:05 [place] # (Auto) 0.4 x10^3/uL (0.3-0.8) 01/21/20 10:05 Eos # (Auto) 0.1 x10^3/uL (0.0-0.2) 01/21/20 10:05 Baso # (Auto) 0.2 X10^3/uL (0.0-0.1) H 01/21/20 10:05 Absolute Nucleated RBC 0.1 /100WBC 01/21/20 10:05 Total Counted 100 01/21/20 10:05 Neutrophils % (Manual) 70 % (39-76) 01/21/20 10:05 Lymphocytes % (Manual) 25 % (13-43) 01/21/20 10:05 Monocytes % (Manual) 4 % (4-9) 01/21/20 10:05 Eosinophils % (Manual) 1 % (0-6) 01/21/20 10:05 Plt Morphology Comment Normal (NORMAL) 01/21/20 10:05 RBC Morphology Normal (NORMAL) 01/21/20 10:05 PT 14.6 SECONDS (11.8-14.3) 01/22/20 09:29 INR Target Range - 01/22/20 09: INR 1.17 (0.8-1.3) 01/22/20 09:29 Sodium 138 mmol/L (136-145) 01/22/20 06:29 Corrected Sodium TNP 01/22/20 06:29 Potassium 3.8 mmol/L (3.5-5.1) 01/22/20 06: Chloride 104 mmol/L (98-107) 01/22/20 06: Carbon Dioxide 25.6 mmol/L (21-32) 01/22/20 06:29 BUN 21 mg/dL (7-18) H 01/22/20 06:29 Creatinine 1.48 mg/dL (0.55-1.02) H 01/22/20 06:29 Est GFR (MDRD) Af Amer 52 (>60) L 01/22/20 06:29 Est GFR (MDRD) Non-Af 43 (>60) L 01/22/20 06:29 Glucose 100 mg/dL (65-99) H 01/22/20 06:29 POC Glucose (mg/dL) 76 mg/dL (65-99) 01/22/20 11:28 Calcium 8.6 mg/dL (8.5-10.1) 01/22/20 06:29 Corrected Calcium TNP 01/21/20 10:05 Total Bilirubin 0.30 mg/dL (0.2-1.0) 01/21/20 10:05 AST 13 Units/L (15-37) L 01/21/20 10:05 ALT 23 Units/L (12-78) 01/21/20 10:05 Alkaline Phosphatase 147 Units/L (46-116) H 01/21/20 10:05 Total Protein 8.5 g/dL (6.4-8.2) H 01/21/20 10:05 Albumin 3.7 g/dL (3.4-5.0) 01/21/20 10:05 Globulin 4.8 g/dL (2.5-4.5) H 01/21/20 10:05 Albumin/Globulin Ratio 0.8 Ratio (1.1-2.1) L 01/21/20 10:05 Amylase 69 Units/L (25-115) 01/22/20 06:29 Lipase 174 Units/L (73-393) 01/22/20 06:29 Review of Systems Constitutional: Malaise Eyes: No Symptoms Reported ENT: No Symptoms Reported Respiratory: No Symptoms Reported Cardiovascular: No Symptoms Reported Gastrointestinal: Nausea, Vomiting and Abdominal Pain Genitourinary: No Symptoms Reported Musculoskeletal: Back Pain Skin: No Symptoms Reported Neurological: No Symptoms Reported Physical Exam Vital Signs: Temperature 97.6 F Pulse Rate [Apical] 76 Pulse Rate 88 Respiratory Rate 18 Blood Pressure [Left Arm] 182/88 Blood Pressure [Right Arm] 140/81 Blood Pressure [Left Arm] 144/81 Blood Pressure 182/88 O2 Sat by Pulse Oximetry 99 Oriented: Normal Eyes: Normal Nose: Normal Throat: Normal Respiratory: Clear Throughout Cardiovascular: Normal Auscultation: Bowel Sounds: Increased Tenderness: Epigastric, Periumbilical, Suprapubic and Moderate Skin: Decreased [place] Musculoskeletal: Normal and Leg (amputation noted ) Mood Description: Calm Affect: Anxious Speech Pattern: Clear and Appropriate Assessment/Plan (1) Nausea & vomiting: Qualifiers: Vomiting Intractability: non-intractable Vomiting type: unspecified Qualified Code(s): R11.2 - Nausea with vomiting, unspecified Status: Acute (2) Intractable abdominal pain: Status: Acute (3) Acute pancreatitis: Qualifiers: Acute pancreatitis complication: unspecified Pancreatitis type: idiopathic Qualified Code(s): K85.00 - Idiopathic acute pancreatitis without necrosis or infection Status: Acute (4) Dehydration: Status: Acute (5) Gastroparesis: Status: Acute (6) CAD (coronary artery disease): Qualifiers: Coronary Disease-Associated Artery/Lesion type: unspecified vessel or lesion type [place] vs. transplanted heart: [place] heart Associated angina: without angina Qualified Code(s): I25.10 - Atherosclerotic heart disease of [place] coronary artery without angina pectoris Status: Chronic (7) Uncontrolled diabetes mellitus: Qualifiers: Diabetes mellitus type: due to underlying condition Glycemic state: with hyperglycemia Qualified Code(s): E08.65 - Diabetes mellitus due to underlying condition with hyperglycemia Status: Chronic (8) Left upper extremity deep vein thrombosis: Qualifiers: Affected thrombotic vein of extremity: unspecified vein of extremity Chronicity: chronic Qualified Code(s): I82.722 - 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
[2020-01-22 12:27] LABS: BILIRUBIN,URINE NEGATIVE (NEGATIVE); BLOOD/HEMOGLOBIN,URINE 1+ (NEGATIVE); GLUCOSE, URINE NEGATIVE (NEGATIVE); KETONES,URINE NEGATIVE (NEGATIVE); LEUKOCYTE ESTERASE ,URINE NEGATIVE (NEGATIVE); NITRITES,URINE NEGATIVE (NEGATIVE); PROTEIN,URINE 2+ (NEGATIVE); UROBILINOGEN,URINE NORMAL (NORMAL)
[2020-01-22 12:34] LABS: APPEARANCE,URINE CLEAR (CLEAR); COLOR,URINE PALE YELLOW (YELLOW)
[2020-01-22 12:35] LABS: BACTERIA,URINE NEGATIVE /HPF (NEGATIVE); SQUAMOUS EPITHELIAL CELL,UR FEW /HPF (NEGATIVE)
--- NOTE | 2020-01-22 12:36 | PCM.PROG ---
Progress Note Progress Note for Day of Date of Exam: 01/22/20 Subjective Subjective: Patient seen at bedside, reports feeling better. No overnight events. She did not have any more episodes of nausea and vomiting. She states abdominal pain is significantly better. She wants to eat and see how she tolerates it. Denies fever or chills. Patient reports she was recently found to have left arm DVT and was started on warfarin and lovenox as her INR was not therapeutic. Labs: WBC 9.5 Hgb 11.4 BUN/Cr: 21/1.48, INR: 1.17 Lipase: 174 Plan: start clears, continue IVF, anti-emetics and pain control. Will resume warfarin and lovenox for DVT treatment. Continue other home meds. Repeat INR in the AM and morning labs. Advance diet as tolerated. Past Medical Family Social History Past Med/Fam/Surg Hx: No changes since H&P Allergies: Allergies Penicillins Allergy (Verified 01/21/20 09:15) Review of Systems ROS: No change since H&P Vital Signs and I&O's Vital Signs: Temperature 97.6 F Pulse Rate [Apical] 76 Pulse Rate 88 Respiratory Rate 18 Blood Pressure [Left Arm] 182/88 Blood Pressure [Right Arm] 140/81 Blood Pressure [Left Arm] 144/81 Blood Pressure 182/88 O2 Sat by Pulse Oximetry 99 Intake and Output: Intake & Output 01/19/20 01/20/20 01/21/20 01/22/20 23:59 23:59 23:59 23:59 Intake Total 875 / 875 Balance 875 / 875 Physical Exam Oriented: Normal Eyes: Normal Nose: Normal Throat: Normal Respiratory: Normal Cardiovascular: Normal Auscultation: Bowel Sounds: Normal Tenderness: Periumbilical and Mild Skin: Decreased [place]urgur Musculoskeletal: Normal and Leg (amputation noted ) Mood Description: Calm Affect: Normal Speech Pattern: Clear and Appropriate Laboratory and Diagnostics Result Diagrams: 01/21/20 10:05 01/22/20 06:29 Labs: Laboratory WBC 9.5 X10^3/uL (3.6-10.0) 01/21/20 10:05 RBC 4.07 X10^6/uL (3.5-5.4) 01/21/20 10:05 Hgb 11.4 g/dL (12.0-16.0) L 01/21/20 10:05 Hct 35.0 % (36.0-47.0) L 01/21/20 10:05 MCV 85.9 fL (80.0-100.0) 01/21/20 10:05 MCH 27.9 pg (27.0-34.0) 01/21/20 10:05 MCHC 32.5 g/dL (33.0-35.0) L 01/21/20 10:05 RDW 15.9 % (11.6-16.5) 01/21/20 10:05 Plt Count 437 X10^3/uL (150.0-450.0) 01/21/20 10:05 Plt Count Comment Adequate (ADEQUATE) 01/21/20 10:05 MPV 9.5 fL (7.4-11.0) 01/21/20 10:05 Neut % (Auto) 69.6 % (42.0-75.0) 01/21/20 10:05 Lymph % (Auto) 23.2 % (21.0-51.0) 01/21/20 10:05 [place] % (Auto) 3.8 % (0.0-13.0) 01/21/20 10:05 Eos % (Auto) 1.3 % (0.9-2.9) 01/21/20 10:05 Baso % (Auto) 2.1 % (0.2-1.0) H 01/21/20 10:05 Neut # (Auto) 6.6 x10^3/uL (2.2-4.8) H 01/21/20 10:05 Lymph # (Auto) 2.2 X10^3/uL (1.3-2.9) 01/21/20 10:05 [place] # (Auto) 0.4 x10^3/uL (0.3-0.8) 01/21/20 10:05 Eos # (Auto) 0.1 x10^3/uL (0.0-0.2) 01/21/20 10:05 Baso # (Auto) 0.2 X10^3/uL (0.0-0.1) H 01/21/20 10:05 Absolute Nucleated RBC 0.1 /100WBC 01/21/20 10:05 Total Counted 100 01/21/20 10:05 Neutrophils % (Manual) 70 % (39-76) 01/21/20 10:05 Lymphocytes % (Manual) 25 % (13-43) 01/21/20 10:05 Monocytes % (Manual) 4 % (4-9) 01/21/20 10:05 Eosinophils % (Manual) 1 % (0-6) 01/21/20 10:05 Plt Morphology Comment Normal (NORMAL) 01/21/20 10:05 RBC Morphology Normal (NORMAL) 01/21/20 10:05 PT 14.6 SECONDS (11.8-14.3) 01/22/20 09:29 INR Target Range - 01/22/20 09: INR 1.17 (0.8-1.3) 01/22/20 09:29 Sodium 138 mmol/L (136-145) 01/22/20 06:29 Corrected Sodium TNP 01/22/20 06:29 Potassium 3.8 mmol/L (3.5-5.1) 01/22/20 06: Chloride 104 mmol/L (98-107) 01/22/20 06:29 Carbon Dioxide 25.6 mmol/L (21-32) 01/22/20 06:29 BUN 21 mg/dL (7-18) H 01/22/20 06:29 Creatinine 1.48 mg/dL (0.55-1.02) H 01/22/20 06:29 Est GFR (MDRD) Af Amer 52 (>60) L 01/22/20 06:29 Est GFR (MDRD) Non-Af 43 (>60) L 01/22/20 06:29 Glucose 100 mg/dL (65-99) H 01/22/20 06:29 POC Glucose (mg/dL) 76 mg/dL (65-99) 01/22/20 11:28 Calcium 8.6 mg/dL (8.5-10.1) 01/22/20 06:29 Corrected Calcium TNP 01/21/20 10:05 Total Bilirubin 0.30 mg/dL (0.2-1.0) 01/21/20 10:05 AST 13 Units/L (15-37) L 01/21/20 10:05 ALT 23 Units/L (12-78) 01/21/20 10:05 Alkaline Phosphatase 147 Units/L (46-116) H 01/21/20 10:05 Total Protein 8.5 g/dL (6.4-8.2) H 01/21/20 10:05 Albumin 3.7 g/dL (3.4-5.0) 01/21/20 10:05 Globulin 4.8 g/dL (2.5-4.5) H 01/21/20 10:05 Albumin/Globulin Ratio 0.8 Ratio (1.1-2.1) L 01/21/20 10:05 Amylase 69 Units/L (25-115) 01/22/20 06:29 Lipase 174 Units/L (73-393) 01/22/20 06:29 Specimen Type Random urine 01/22/20 12:10 Urine Color Pale yellow (YELLOW) 01/22/20 12:10 Urine Appearance Clear (CLEAR) 01/22/20 12:10 Urine pH 7.0 (5.0 - 8.0) 01/22/20 12:10 Ur Specific [place] 1.015 (1.000-1.030) 01/22/20 12:10 Urine Protein 2+ (NEGATIVE) 01/22/20 12:10 Urine Glucose (UA) Negative (NEGATIVE) 01/22/20 12:10 Urine Ketones Negative (NEGATIVE) 01/22/20 12:10 Urine Occult Blood 1+ (NEGATIVE) 01/22/20 12:10 Urine Nitrite Negative (NEGATIVE) 01/22/20 12:10 Urine Bilirubin Negative (NEGATIVE) 01/22/20 12:10 Urine Urobilinogen Normal (NORMAL) 01/22/20 12:10 Ur Leukocyte Esterase Negative (NEGATIVE) 01/22/20 12:10 Urine RBC 3-5 /HPF (0-3) A 01/22/20 12:10 Urine WBC None seen /HPF (0-5) 01/22/20 12:10 Ur Squamous Epith Cells Few /HPF (NEGATIVE) 01/22/20 12:10 Urine Bacteria Negative /HPF (NEGATIVE) 01/22/20 12:10 Ur Culture Indicated? No/not indicated 01/22/20 12:10 Plan (1) Nausea & vomiting: Status: Acute Qualifiers: Vomiting Intractability: non-intractable Vomiting type: unspecified Qualified Code(s): R11.2 - Nausea with vomiting, unspecified (2) Intractable abdominal pain: Status: Acute (3) Acute pancreatitis: Status: Acute Qualifiers: Acute pancreatitis complication: unspecified Pancreatitis type: idiopathic Qualified Code(s): K85.00 - Idiopathic acute pancreatitis without necrosis or infection (4) Dehydration: Status: Acute (5) Gastroparesis: Status: Acute (6) CAD (coronary artery disease): Status: Chronic Qualifiers: Associated angina: without angina Coronary Disease-Associated Artery/Lesion type: unspecified vessel or lesion type [place] vs. 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
[2020-01-22] MEDS: PHENERGAN INJ 25 MG IM PRN (13:02)
[2020-01-22] MEDS: MORPHINE SULFATE INJ 2 MG INJ IVP PRN ×2 (16:29→20:28)
[2020-01-22] MEDS ORDERED: CELEXA ONE (19:47)
[2020-01-22] MEDS ORDERED: COUMADIN TAB 10 MG PO SCH (21:00)
[2020-01-22] MEDS ORDERED: AMBIEN PO SCH (21:00)
[2020-01-22] MEDS ORDERED: CELEXA PO SCH (21:00)
[2020-01-23] MEDS: MORPHINE SULFATE INJ 2 MG INJ IVP PRN ×3 (00:30→09:54)
[2020-01-23] MEDS: NS 1000 ML 1,000 ML IV SCH ×2 (05:10→10:00)
[2020-01-23 06:37] LABS: BASOPHILS # (AUTO) 0.1 X10^3/uL (0.0-0.1); BASOPHILS % (AUTO) 1.5 % (0.2-1.0); EOSINOPHILS # (AUTO) 0.4 x10^3/uL (0.0-0.2); EOSINOPHILS % (AUTO) 6.1 % (0.9-2.9); HEMATOCRIT 30.2 % (36.0-47.0); HEMOGLOBIN 9.7 g/dL (12.0-16.0); LYMPHOCYTES # (AUTO) 2.6 X10^3/uL (1.3-2.9); LYMPHOCYTES % (AUTO) 35.6 % (21.0-51.0); MEAN CORPUSCULAR HEMOGLOBIN 27.9 pg (27.0-34.0); MEAN CORPUSCULAR HGB CONC 32.3 g/dL (33.0-35.0); MEAN CORPUSCULAR VOLUME 86.6 fL (80.0-100.0); MONOCYTES # (AUTO) 0.4 x10^3/uL (0.3-0.8); MONOCYTES % (AUTO) 5.9 % (0.0-13.0); NEUTROPHILS # (AUTO) 3.8 x10^3/uL (2.2-4.8); NEUTROPHILS % (AUTO) 50.9 % (42.0-75.0); PLATELET COUNT 303 X10^3/uL (150.0-450.0); RED BLOOD COUNT 3.49 X10^6/uL (3.5-5.4); WHITE BLOOD COUNT 7.4 X10^3/uL (3.6-10.0)
[2020-01-23 06:47] LABS: BLOOD UREA NITROGEN 13 mg/dL (7-18); CALCIUM 8.5 mg/dL (8.5-10.1); CARBON DIOXIDE 24.8 mmol/L (21-32); CHLORIDE 106 mmol/L (98-107); CREATININE 1.31 mg/dL (0.55-1.02); MAGNESIUM 1.9 mg/dL (1.7-2.9); SODIUM 139 mmol/L (136-145); eGFR NON BLACK RACES 49 (>60)
[2020-01-23] MEDS: PROTONIX TAB 40 MG PO SCH (08:44)
[2020-01-23] MEDS: COREG TAB 3.125 MG PO SCH (08:44)
[2020-01-23] MEDS: FERROUS GLUCONATE PO SCH (08:44)
[2020-01-23] MEDS: APRESOLINE TAB 25 MG PO SCH (08:56)
[2020-01-23] MEDS: LOVENOX INJ 100 MG SYR SC SCH (08:59)
[2020-01-23] MEDS ORDERED: PEPCID 20 MG IV PREMIX* 20 MG/50 ML BAG IV PRN (09:00)
[2020-01-23 10:52] LABS: AMYLASE 59 Units/L (25-115); LIPASE 144 Units/L (73-393)
[2020-01-23 14:23] VITALS: BP 175/86
== END 2020-01-23 13:35 | disposition home or self-care (01) ==
LOC: OBS 09:05 → ER 09:05 → OBS 01-22 01:40 → MED/SURG 01-22 09:09
PROVIDERS: ADMIT Internal Medicine; ATTEND Internal Medicine
DX: K85.00 Idiopathic acute pancreatitis without necrosis or infection; I87.2 Venous insufficiency (chronic) (peripheral); E86.0 Dehydration; K21.9 Gastro-esophageal reflux disease without esophagitis; I25.10 Atherosclerotic heart disease of native coronary artery without angina pectoris; N17.8 Other acute kidney failure; K31.84 Gastroparesis; Z89.512 Acquired absence of left leg below knee; F41.8 Other specified anxiety disorders; I82.622 Acute embolism and thrombosis of deep veins of left upper extremity; I10 Essential (primary) hypertension; N18.3 Chronic kidney disease, stage 3 (moderate); K52.89 Other specified noninfective gastroenteritis and colitis; R11.2 Nausea with vomiting, unspecified

== ENCOUNTER 2020-03-18 11:50 | Inpatient (IN) ==
[2020-03-18 12:06] VITALS: BMI 27.8
--- NOTE | 2020-03-18 12:20 | DR.NAUSEAF ---
HPI Time Seen Time Seen by Provider: 03/18/20 12:20 Primary Care Physician Primary Care Physician: WANG HPI Comment HPI Comment: PATIENT IS 34YR OLD FEMALE IN ER WITH ABDOMINAL PAIN, SHARP 8/10 RADIATING TO THE BACK. PATIENT IS A DIABETIC WITH HISTORY OF DIABETIC GASTROPARESIS AND PANCREATITIS. DECREASE URINE OUTPUT BUT NO DYSURIA. SHE I GETTING WEAK AND PAIN WORSE. GLUCOSE IS NOT LOW. Complaints Chief Complaint Doctors Comments: ABDOMINAL PAIN, NAUSEA AND VOMITING SINCE YESTERDAY MORNING. Chief Complaint:: PT STATES I DON'T KNOW IF IT IS THE STRESS OR MY GASTRIC PAR BUT YESTERDAY WHEN I WOKE UP I WAS NAUSEATED AND THROWING UP SO I TOOK MY LIQUID REGLAN AND PHENERGAN. IT HELP FOR A LITTLE WHILE BUT THEN I STARTED HURTING SO I CRUSEHED TWO OF MY PERCOCETS BUT I THROWED THEM UP. Self Treatment fo Chief Complaint: TOOK PRESCRIBED MEDS COVID-19 Coronavirus risk:travel/contact w/high risk person: No Has patient experienced Coronavirus symptoms: No Reviewed Nurses Notes Reviewed: Yes Source History Provided: Patient Mode of Arrival Mode of Arrival: Wheelchair Timing Onset of Chief Complaint: 03/17/20 Context Onset: Spontaneous Recent: None History of: Diabetes Quality Quality: Food Particles Associated Signs and Symptoms Abdominal Pain Quality: Burning and Sharp Abdominal Pain Location: Diffuse Symptoms: Abdominal Pain PMH PMH Past Medical History: Yes Past Medical History: Anxiety, Coronary Artery Disease, Diabetes, GERD, Hypertension, PUD and Renal Disease Past Surgical History: Yes Surgical History: Cholecystectomy and Other Past Surgical History Comment: BELOW TKA Family History History of Family Medical Conditions: Yes Family Medical History: Diabetes Mellitus and Coronary Artery Disease Social History Does any household member use tobacco: No Alcohol Use: None Do you use any recreational Drugs:: No Lives With: Family Lives Where: Home Infectious screening In the last 2 months have you had wt loss of >10#?: NO Have you had fever, night sweats or hemotysis?: No Have you traveled outside the country in the last 6 months?: No Isolation: Standard ROS Review of Systems Constitutional: See HPI, Weakness and Fatigue; negative Fever Eyes: No Symptoms Reported and See HPI ENTM: No Symptoms Reported and See HPI; negative Nose Discharge and Nose Congestion Respiratoy: No Symptoms Reported and See HPI; negative Moist Cough, Short of Breath and Wheezing Cardiovascular: No Symptoms Reported and See HPI; negative Chest Pain Gastrointestinal/Abdominal: See HPI, Abdominal Pain, Nausea and Vomiting; negative Diarrhea Genitourinary: See HPI and Other (DECREASE URINE OUTPUT.); negative Dysuria, Frequency and Hematuria Neurological: See HPI and Weakness; negative Headache and Dizziness Musculoskeletal: See HPI, Back Pain and Muscle Pain Integumentary: No Symptoms Reported and See HPI; negative Change in Color, Rash and Juandice Hematologic/Lymphatic: No Symptoms Reported and See HPI; negative Easy Bruising and Swollen Glands Endocrine: No Symptoms Reported and See HPI; negative Increased Thirst and Incre ased Urine Psychiatric: No Symptoms Reported and See HPI All Other Systems: Reviewed and Negative PE Vital Signs Vitals: Temperature 98 F Pulse Rate [Left Radial] 99 Pulse Rate 107 Respiratory Rate 20 Blood Pressure [Right Arm] 185/100 Blood Pressure [Left Arm] 164/90 Blood Pressure 160/91 O2 Sat by Pulse Oximetry 99 General Limitations: No Limitations General Appearance: Alert and In No Apparent Distress Head Head Exam: Normal Inspection Eyes Eye exam: Normal Appearance and PERRL; negative Scleral Icterus and Conjunctival Injection ENT ENT Exam: Normal Exam, Normal Oropharynx, Normal External Ear Exam and TM's Normal Bilaterally Neck Neck Exam: Normal Inspection and Trachea Midline; negative Tenderness and Lymphadenopathy Chest Chest Inspection: Normal Inspection and Symmetric Chest Wall Rise; negative Tenderness Respiratory Respiratory Exam: Normal Lung Sounds Bilat; negative Accessory Muscle Use, Chest Wall Tenderness and Respiratory Distress Respiratory Exam: Bilateral: Clear to Auscultation Cardiovascular Cardiovascular Exam: Regular Rate, Normal Rhythm and Normal Heart Sounds; negative Systolic Murmur and Diastolic Murmur Abdominal Exam Abdominal Exam: Normal Bowel Sounds, Soft and Tenderness Abdominal Tenderness: Diffuse and Moderate Rectal Rectal Exam: Deferred External Exam: Female: Deferred : Speculum Exam (Female): Deferred : Bimanual Exam (female): Deferred Extremities Extremities Exam: Normal Inspection Back Back Exam: Normal Inspection, Tenderness and Paraspinal Tenderness Neurologic Neurological Exam: Alert, Oriented X3 and CN II-XII Intact; negative Motor Sensory Deficit Psychiatric Psychiatric Exam: Normal Affect and Normal Mood Skin Skin Exam: Dry MDM Additional Information Obtained Additional Information Obtained From: Old Records Differential Diagnosis Differential Diagnosis: Considerations may Include:: Bowel Obstruction, Gastritis, Inflammatory BD, Pancreatitis, PUD, Urinary Tract Infection and Urolithiasis COURSE Treatment Treatment: SEE ORDERS. NS 125MG IV. DILAUDID IV AND PHENERGAN IM. Consultation Consultation Comments: DISCUSSED PATIENT WITH DR. RUDD. HE WILL ADMIT PATIENT. Education/Counseling Education/Counseling: Patient Educated On: Diagnosis ROR Labs Reviewed Laboratory Results Reviewed?: Yes Result Diagrams: 03/20/20 05:32 03/20/20 05:32 Laboratory: WBC 10.5 X10^3/uL (3.6-10.0) H 03/19/20 05:58 RBC 4.12 X10^6/uL (3.5-5.4) 03/19/20 05:58 Hgb 11.8 g/dL (12.0-16.0) L 03/19/20 05:58 Hct 36.3 % (36.0-47.0) 03/19/20 05:58 MCV 88.0 fL (80.0-100.0) 03/19/20 05:58 MCH 28.6 pg (27.0-34.0) 03/19/20 05:58 MCHC 32.5 g/dL (33.0-35.0) L 03/19/20 05:58 RDW 16.8 % (11.6-16.5) H 03/19/20 05:58 Plt Count 306 X10^3/uL (150.0-450.0) 03/19/20 05:58 MPV 8.8 fL (7.4-11.0) 03/19/20 05:58 Neut % (Auto) 55.1 % (42.0-75.0) 03/19/20 05:58 Lymph % (Auto) 34.2 % (21.0-51.0) 03/19/20 05:58 [place] % (Auto) 6.9 % (0.0-13.0) 03/19/20 05:58 Eos % (Auto) 3.0 % (0.9-2.9) H 03/19/20 05:58 Baso % (Auto) 0.8 % (0.2-1.0) 03/19/20 05:58 Neut # (Auto) 5.8 x10^3/uL (2.2-4.8) H 03/19/20 05:58 Lymph # (Auto) 3.6 X10^3/uL (1.3-2.9) H 03/19/20 05:58 [place] # (Auto) 0.7 x10^3/uL (0.3-0.8) 03/19/20 05:58 Eos # (Auto) 0.3 x10^3/uL (0.0-0.2) H 03/19/20 05:58 Baso # (Auto) 0.1 X10^3/uL (0.0-0.1) 03/19/20 05:58 Absolute Nucleated RBC 0.1 /100WBC 03/19/20 05:58 Sodium 138 mmol/L (136-145) 03/19/20 05:58 Corrected Sodium TNP 03/19/20 05:58 Potassium 4.2 mmol/L (3.5-5.1) 03/19/20 05:58 Chloride 102 mmol/L (98-107) 03/19/20 05:58 Carbon Dioxide 22.6 mmol/L (21-32) 03/19/20 05:58 BUN 17 mg/dL (7-18) 03/19/20 05:58 Creatinine 1.82 mg/dL (0.55-1.02) H 03/19/20 05:58 Est GFR (MDRD) Af Amer 41 (>60) L 03/19/20 05:58 Est GFR (MDRD) Non-Af 34 (>60) L 03/19/20 05:58 Glucose 79 mg/dL (65-99) 03/19/20 05:58 POC Glucose (mg/dL) 69 mg/dL (65-99) 03/19/20 11:23 Calcium 9.4 mg/dL (8.5-10.1) 03/19/20 05:58 Corrected Calcium TNP 03/19/20 05:58 Total Bilirubin 0.30 mg/dL (0.2-1.0) 03/19/20 05:58 AST 36 Units/L (15-37) 03/19/20 05:58 ALT 31 Units/L (12-78) 03/19/20 05:58 Alkaline Phosphatase 126 Units/L (46-116) H 03/19/20 05:58 Total Protein 8.5 g/dL (6.4-8.2) H 03/19/20 05:58 Albumin 3.9 g/dL (3.4-5.0) 03/19/20 05:58 Globulin 4.6 g/dL (2.5-4.5) H 03/19/20 05:58 Albumin/Globulin Ratio 0.8 Ratio (1.1-2.1) L 03/19/20 05:58 Amylase 108 Units/L (25-115) 03/19/20 05:58 Lipase 234 Units/L (73-393) 03/19/20 05:58 Free T4 1.41 ng/dL (0.76-1.46) 03/19/20 05:58 TSH 3rd Generation 2.595 uIU/mL (0.358-3.74) 03/19/20 05:58 Specimen Type Clean catch urine 03/18/20 19:35 Urine Color Straw (YELLOW) 03/18/20 19:35 Urine Appearance Clear (CLEAR) 03/18/20 19:35 Urine pH 7.0 (5.0 - 8.0) 03/18/20 19:35 Ur Specific [place] 1.010 (1.000-1.030) 03/18/20 19:35 Urine Protein 3+ (NEGATIVE) 03/18/20 19:35 Urine Glucose (UA) Negative (NEGATIVE) 03/18/20 19:35 Urine Ketones Negative (NEGATIVE) 03/18/20 19:35 Urine Occult Blood 3+ (NEGATIVE) 03/18/20 19:35 Urine Nitrite Negative (NEGATIVE) 03/18/20 19:35 Urine Bilirubin Negative (NEGATIVE) 03/18/20 19:35 Urine Urobilinogen Normal (NORMAL) 03/18/20 19:35 Ur Leukocyte Esterase Negative (NEGATIVE) 03/18/20 19:35 Urine RBC 0-2 /HPF (0-3) 03/18/20 19:35 Urine WBC 0-2 /HPF (0-5) 03/18/20 19:35 Ur Squamous Epith Cells Moderate /HPF (NEGATIVE) 03/18/20 19:35 Urine Bacteria Trace /HPF (NEGATIVE) 03/18/20 19:35 Ur Culture Indicated? No/not indicated 03/18/20 19:35 Urine Opiates Screen Negative (NEG=<300) 03/18/20 19:35 Urine Methadone Screen Negative (NEG=<300) 03/18/20 19:35 Ur Barbiturates Screen Negative (NEG=<200) 03/18/20 19:35 Ur Phencyclidine Scrn Negative (NEG=<25) 03/18/20 19:35 Ur Amphetamines Screen Negative (NEG=<1000) 03/18/20 19:35 U Benzodiazepines Scrn Negative (NEG=<200) 03/18/20 19:35 Urine Cocaine Screen Negative (NEG=<300) 03/18/20 19:35 U Marijuana (THC) Screen Positive (NEG=<50) A 03/18/20 19:35 XRAY XRAY Interpreted by: Radiologist (REPORTS NOTED AND DISCUSSED WITH PATIENT.) and Self Opioid Opioid Risk Tool Age (Duc box if 16-45): Yes History of Preadolescent Sexual Abuse: No Total: 1 Total Score Risk Category: Low Risk Copyright: Wilfrid ROCKWELL predicting aberrant behaviors Diagnosis Discharge Problem: Diabetic gastroparesis Acute pancreatitis Qualifiers: Pancreatitis type: unspecified pancreatitis type Acute pancreatitis complication: unspecified Qualified Code(s): K85.90 - Acute pancreatitis without necrosis or infection, unspecified Nausea & vomiting Qualifiers: Vomiting type: unspecified Vomiting Intractability: intractable Qualified Code(s): R11.2 - Nausea with vomiting, unspecified Instructions Instructions: Hand Washing, [id number] Acute Pancreatitis, Zpou-lw-Apzv Abdominal Pain, Adult, Qdcf-[id number] Hypertension, Nrqy-ka-Dglu Nausea, Adult, Lxpe-fm-[id number] Gastroparesis Forms: Excuse From Work or School Precautions for COVID19 Patient Portal Social Distancing
[2020-03-18] MEDS ORDERED: PHENERGAN INJ 25 MG IM ONE ×2 (12:30→12:36)
[2020-03-18] MEDS ORDERED: DILAUDID INJ IVP ONE (12:31)
[2020-03-18] MEDS ORDERED: DILAUDID INJ ONE (12:36)
[2020-03-18 13:05] LABS: BASOPHILS # (AUTO) 0.1 X10^3/uL (0.0-0.1); BASOPHILS % (AUTO) 0.9 % (0.2-1.0); EOSINOPHILS # (AUTO) 0.1 x10^3/uL (0.0-0.2); EOSINOPHILS % (AUTO) 0.6 % (0.9-2.9); HEMATOCRIT 37.7 % (36.0-47.0); HEMOGLOBIN 12.2 g/dL (12.0-16.0); LYMPHOCYTES # (AUTO) 2.4 X10^3/uL (1.3-2.9); LYMPHOCYTES % (AUTO) 20.2 % (21.0-51.0); MEAN CORPUSCULAR HEMOGLOBIN 28.3 pg (27.0-34.0); MEAN CORPUSCULAR HGB CONC 32.4 g/dL (33.0-35.0); MEAN CORPUSCULAR VOLUME 87.3 fL (80.0-100.0); MEAN PLATELET VOLUME 8.4 fL (7.4-11.0); MONOCYTES # (AUTO) 0.8 x10^3/uL (0.3-0.8); MONOCYTES % (AUTO) 6.9 % (0.0-13.0); NEUTROPHILS # (AUTO) 8.4 x10^3/uL (2.2-4.8); NEUTROPHILS % (AUTO) 71.4 % (42.0-75.0); PLATELET COUNT 383 X10^3/uL (150.0-450.0); RED BLOOD COUNT 4.31 X10^6/uL (3.5-5.4); RED CELL DISTRIBUTION WIDTH 16.3 % (11.6-16.5); WHITE BLOOD COUNT 11.7 X10^3/uL (3.6-10.0)
[2020-03-18 13:17] LABS: ALANINE AMINOTRANSFERASE 35 Units/L (12-78); ALBUMIN 4.2 g/dL (3.4-5.0); ALKALINE PHOSPHATASE 140 Units/L (46-116); AMYLASE 200 Units/L (25-115); ASPARTATE AMINO TRANSFERASE 23 Units/L (15-37); BLOOD UREA NITROGEN 19 mg/dL (7-18); CALCIUM 10.1 mg/dL (8.5-10.1); CARBON DIOXIDE 25.4 mmol/L (21-32); CHLORIDE 104 mmol/L (98-107); COR NA(FOR HYPERGLY) 143 mmol/L (136-145); CREATININE 2.29 mg/dL (0.55-1.02); LIPASE 807 Units/L (73-393); SODIUM 142 mmol/L (136-145); TOTAL PROTEIN 9.2 g/dL (6.4-8.2); eGFR NON BLACK RACES 26 (>60)
--- NOTE | 2020-03-18 13:49 | RAD ---
HISTORYPT C/O ABDOMINAL PAIN AND N/VSTUDYACUTE ABDOMEN SERIES PA chest with flat and upright abdomen. Four images.COMPARISONNoneFINDINGSLungs are clear. Heart size is normal. Left jugular central venous catheter is in the expected location of the superior vena cava. The catheter tip lies transversely in the expected location of the superior vena cava. This is new since the prior study 11/23/2019.Gas is present in nondilated bowel. No bowel obstruction or free air. There is not an abnormally large amount of stool in the colon.There is a 5 mm calcification between the left L3 and L4 transverse processes. This corresponds to a phlebolith seen in the gonadal vein on the prior CT 01/21/2020.No other suspicious calcification.Surgical clips are present in the right upper abdomen, probably from a cholecystectomy.IMPRESSION1. No significant abnormalityElectronically signed by: Gus Lyons (Mar 18, 2020 13:46:34)
[2020-03-18] MEDS ORDERED: ATIVAN INJ 2 MG VIAL IVP ONE (14:44)
[2020-03-18] MEDS ORDERED: ATIVAN INJ 2 MG VIAL ONE (15:00)
[2020-03-18] MEDS ORDERED: NovoLIN R (or HumuLIN R) SUBCUT PRN (15:27)
[2020-03-18] MEDS ORDERED: NS 1,000 ML IV 1,000 ML ONE (15:42)
[2020-03-18] MEDS: NS 1,000 ML IV 1,000 ML IV SCH (15:54)
[2020-03-18] MEDS: DILAUDID INJ IVP PRN ×2 (17:47→21:39)
[2020-03-18] MEDS: SNACK - Diabetic Appropriate PO SCH ×2 (20:00→23:51)
[2020-03-18 20:08] LABS: BILIRUBIN,URINE NEGATIVE (NEGATIVE); BLOOD/HEMOGLOBIN,URINE 3+ (NEGATIVE); GLUCOSE, URINE NEGATIVE (NEGATIVE); KETONES,URINE NEGATIVE (NEGATIVE); LEUKOCYTE ESTERASE ,URINE NEGATIVE (NEGATIVE); NITRITES,URINE NEGATIVE (NEGATIVE); PROTEIN,URINE 3+ (NEGATIVE); UROBILINOGEN,URINE NORMAL (NORMAL)
[2020-03-18 20:17] LABS: APPEARANCE,URINE CLEAR (CLEAR); COLOR,URINE STRAW (YELLOW)
[2020-03-18 20:18] LABS: BACTERIA,URINE TRACE /HPF (NEGATIVE); RBC,URINE 0-2 /HPF (0-3); SQUAMOUS EPITHELIAL CELL,UR MODERATE /HPF (NEGATIVE)
[2020-03-18] MEDS: PEPCID 20 MG IV PREMIX* 20 MG/50 ML BAG IV SCH (21:00)
[2020-03-18] MEDS: ZOFRAN INJ 4 MG VIAL IVP PRN (21:40)
[2020-03-19] MEDS ORDERED: DILAUDID INJ ONE ×2 (01:43→05:38)
[2020-03-19] MEDS: DILAUDID INJ IVP PRN ×6 (01:48→22:15)
[2020-03-19] MEDS: NS 1,000 ML IV 1,000 ML IV SCH ×4 (02:18→22:14)
[2020-03-19 06:38] LABS: BASOPHILS # (AUTO) 0.1 X10^3/uL (0.0-0.1); BASOPHILS % (AUTO) 0.8 % (0.2-1.0); EOSINOPHILS # (AUTO) 0.3 x10^3/uL (0.0-0.2); HEMATOCRIT 36.3 % (36.0-47.0); HEMOGLOBIN 11.8 g/dL (12.0-16.0); LYMPHOCYTES # (AUTO) 3.6 X10^3/uL (1.3-2.9); LYMPHOCYTES % (AUTO) 34.2 % (21.0-51.0); MEAN CORPUSCULAR HEMOGLOBIN 28.6 pg (27.0-34.0); MEAN CORPUSCULAR HGB CONC 32.5 g/dL (33.0-35.0); MEAN PLATELET VOLUME 8.8 fL (7.4-11.0); MONOCYTES # (AUTO) 0.7 x10^3/uL (0.3-0.8); MONOCYTES % (AUTO) 6.9 % (0.0-13.0); NEUTROPHILS # (AUTO) 5.8 x10^3/uL (2.2-4.8); NEUTROPHILS % (AUTO) 55.1 % (42.0-75.0); PLATELET COUNT 306 X10^3/uL (150.0-450.0); RED BLOOD COUNT 4.12 X10^6/uL (3.5-5.4); RED CELL DISTRIBUTION WIDTH 16.8 % (11.6-16.5); WHITE BLOOD COUNT 10.5 X10^3/uL (3.6-10.0)
[2020-03-19 06:46] LABS: ALANINE AMINOTRANSFERASE 31 Units/L (12-78); ALBUMIN 3.9 g/dL (3.4-5.0); ALKALINE PHOSPHATASE 126 Units/L (46-116); AMYLASE 108 Units/L (25-115); ASPARTATE AMINO TRANSFERASE 36 Units/L (15-37); BLOOD UREA NITROGEN 17 mg/dL (7-18); CALCIUM 9.4 mg/dL (8.5-10.1); CARBON DIOXIDE 22.6 mmol/L (21-32); CHLORIDE 102 mmol/L (98-107); CREATININE 1.82 mg/dL (0.55-1.02); LIPASE 234 Units/L (73-393); SODIUM 138 mmol/L (136-145); TOTAL PROTEIN 8.5 g/dL (6.4-8.2); eGFR NON BLACK RACES 34 (>60)
[2020-03-19] MEDS ORDERED: REGLAN INJ 10 MG VIAL IVP PRN (08:42)
[2020-03-19] MEDS: COREG TAB 3.125 MG PO SCH ×2 (11:05→21:33)
[2020-03-19] MEDS: PROTONIX INJ 40 MG VIAL IVP SCH ×2 (11:05→21:39)
[2020-03-19] MEDS: APRESOLINE TAB 25 MG PO SCH ×2 (12:28→21:32)
[2020-03-19 13:00] LABS: FREE T4 (FREE THYROXINE) 1.41 ng/dL (0.76-1.46); TSH (3RD GENERATION) 2.595 uIU/mL (0.358-3.74)
[2020-03-19] MEDS ORDERED: GLUTOSE 15 GEL ORAL PO ONE (16:47)
[2020-03-19] MEDS ORDERED: GLUTOSE 15 GEL ORAL PO PRN (16:50)
[2020-03-19] MEDS ORDERED: D50W ABBOJECT SYR IV ONE (17:47)
--- NOTE | 2020-03-19 18:02 | DR.H&P ---
H&P - History & Physical for Day of: H&P Date: 03/18/20 - Chief Complaint Chief Complaint: N/V, ABDOMINAL PAIN - History of Present Illness History of Present Illness: PT IS 34BF, ER ADMISSION WITH CO N/V AND ABDOMINAL PAIN. PT HAD PMH OF DM GASTROPARESIS. PT HAD ELEVATED AMYLASE AND LIPASE ON ADMISSION. PT ALSO HAD HTN, RENAL DISEASE, LSPINE DDD, LEGAL BLINDNESS, LE AMPUTATION. PT ADMITTED FOR TREATMENT OF ACUTE PANCREATITIS. - Past Medical History Past Medical History: Anxiety, Arthritis, Coronary Artery Disease, Diabetes, GERD, Hypertension, PUD, Renal Disease Additional Medical History: MORBID OBESITY, Pancreatitis, gastroparesis, osteomyelitis - Past Surgical History Surgical History: Cholecystectomy, Other Additional Surgical History: BKA - Family History Family Medical History: Diabetes Mellitus, Coronary Artery Disease - Social History Does patient currently use any type of tobacco product: No Have you used tobacco products in the last 12 months: No Type of Tobacco Use: None Does any household member use tobacco: No Alcohol Use: None Drug Use: None - Medications Home Medications: Penicillins Allergy (Verified 03/18/20 12:06) CONTINUE taking the following medications metoclopramide HCl 5 mg PO ACHS 03/19/20 [History] pantoprazole 40 mg PO DAILY 03/19/20 [History] promethazine [Promethegan] 25 mg WA Q6H PRN 03/19/20 [History] warfarin 2 mg PO HS 03/19/20 [History] warfarin 6 mg PO HS 03/19/20 [History] - Review of Systems Constitutional: Weakness Eyes: No Symptoms Reported ENT: No Symptoms Reported Respiratory: No Symptoms Reported Cardiovascular: No Symptoms Reported Gastrointestinal: Nausea, Vomiting, Abdominal Pain. denies: Melena Genitourinary: No Symptoms Reported Musculoskeletal: Back Pain Skin: No Symptoms Reported Neurological: No Symptoms Reported - Physical Exam Vital Signs: Temperature 98.4 F Pulse Rate [Left Radial] 94 Pulse Rate 107 Respiratory Rate 20 Blood Pressure [Right Arm] 163/77 Blood Pressure [Left Arm] 164/90 Blood Pressure 160/91 O2 Sat by Pulse Oximetry 100 Oriented: Normal Eyes: Blurred Vision (CHRONIC) Ear: Normal Nose: Normal Throat: Normal Respiratory: RLL Diminished, LLL Diminished Cardiovascular: Normal : Normal Auscultation: Bowel Sounds: Normal Palpation: Normal Tenderness: RUQ, LUQ, Epigastric Skin: Decreased Turgur Musculoskeletal: Back:Thoracic, Back:Lumbar, Deformity Psychiatric: Anxiety Affect: Anxious Speech Pattern: Clear, Appropriate - Assessment/Plan (1) Acute pancreatitis Qualifiers: Pancreatitis type: unspecified pancreatitis type Acute pancreatitis complication: unspecified Qualified Code(s): K85.90 - Acute pancreatitis without necrosis or infection, unspecified Status: Acute Plan: ADMIT, IV HYDRATION, PAIN CONTROL. BS AND BP CONTROL. PPI THERAPY, NAUSEA CONTROL. REPEAT AM LABS, AMYLASE AND LIPASE. ABD SERIES ON ADMISSION (2) Diabetic gastroparesis Status: Acute (3) Acute on chronic renal failure Qualifiers: Status: Acute (4) Left upper extremity deep vein thrombosis Qualifiers: Status: Acute (5) CAD (coronary artery disease) Qualifiers: Status: Chronic (6) Uncontrolled hypertension Status: Chronic - Allergies Allergies/Adverse Reactions: Allergies Allergy/AdvReac Type Severity Reaction Status Date / Time Penicillins Allergy Verified 03/18/20 12:06
--- NOTE | 2020-03-19 18:05 | PCM.PROG ---
Progress Note - Progress Note for Day of Date of Exam: 03/19/20 - Subjective Subjective: PT IS 34 BF ER ADMISSION WITH ACUTE PACREATITIS. PT AMYLASE AND LIPASE RETURNED TO NORMAL RANGES THIS AM. PT CONTINUES WITH EPIGASTRIC AND LEFT UPPER ABDOMINAL TENDERNESS. PT CO NAUSEA BUT DENIES VOMITING. PT PO BP MEDICATION RESUMED. PLAN TO ADMISSION REGLAN IV AND PROTONIX WITH CONTINUED NPO. IV HYDRATION WITH BS CONTROL AND STRICT I&OS. REPEAT AM LABS - Past Medical Family Social History Past Med/Fam/Surg Hx: No changes since H&P Allergies: Allergies Penicillins Allergy (Verified 03/18/20 12:06) - Review of Systems ROS: No change since H&P - Vital Signs and I&O's Vital Signs: Temperature 98.4 F Pulse Rate [Left Radial] 94 Pulse Rate 107 Respiratory Rate 20 Blood Pressure [Right Arm] 163/77 Blood Pressure [Left Arm] 164/90 Blood Pressure 160/91 O2 Sat by Pulse Oximetry 100 Intake and Output: Intake & Output 03/17/20 03/18/20 03/19/20 03/20/20 12:59 11:59 11:59 11:59 Intake Total 1500 / 1500 1000 / 1000 Output Total 1000 / 1000 Balance 1500 / 1500 0 / 0 - Physical Exam Oriented: Normal Eyes: Blurred Vision (CHRONIC) Ear: Normal Nose: Normal Throat: Normal Cardiovascular: Normal : Normal Auscultation: Bowel Sounds: Normal Tenderness: RUQ, LUQ, Epigastric Skin: Decreased Turgur Musculoskeletal: Back:Thoracic, Back:Lumbar, Deformity Psychiatric: Anxiety Affect: Anxious Speech Pattern: Clear, Appropriate - Laboratory and Diagnostics Result Diagrams: 03/19/20 05:58 03/19/20 05:58 Labs: Laboratory WBC 10.5 X10^3/uL (3.6-10.0) H 03/19/20 05:58 RBC 4.12 X10^6/uL (3.5-5.4) 03/19/20 05:58 Hgb 11.8 g/dL (12.0-16.0) L 03/19/20 05:58 Hct 36.3 % (36.0-47.0) 03/19/20 05:58 MCV 88.0 fL (80.0-100.0) 03/19/20 05:58 MCH 28.6 pg (27.0-34.0) 03/19/20 05:58 MCHC 32.5 g/dL (33.0-35.0) L 03/19/20 05:58 RDW 16.8 % (11.6-16.5) H 03/19/20 05:58 Plt Count 306 X10^3/uL (150.0-450.0) 03/19/20 05:58 MPV 8.8 fL (7.4-11.0) 03/19/20 05:58 Neut % (Auto) 55.1 % (42.0-75.0) 03/19/20 05:58 Lymph % (Auto) 34.2 % (21.0-51.0) 03/19/20 05:58 [place] % (Auto) 6.9 % (0.0-13.0) 03/19/20 05:58 Eos % (Auto) 3.0 % (0.9-2.9) H 03/19/20 05:58 Baso % (Auto) 0.8 % (0.2-1.0) 03/19/20 05:58 Neut # (Auto) 5.8 x10^3/uL (2.2-4.8) H 03/19/20 05:58 Lymph # (Auto) 3.6 X10^3/uL (1.3-2.9) H 03/19/20 05:58 [place] # (Auto) 0.7 x10^3/uL (0.3-0.8) 03/19/20 05:58 Eos # (Auto) 0.3 x10^3/uL (0.0-0.2) H 03/19/20 05:58 Baso # (Auto) 0.1 X10^3/uL (0.0-0.1) 03/19/20 05:58 Absolute Nucleated RBC 0.1 /100WBC 03/19/20 05:58 PT 13.8 SECONDS (11.8-14.3) 03/19/20 13:29 INR Target Range - 03/19/20 13:29 INR 1.09 (0.8-1.3) 03/19/20 13:29 Sodium 138 mmol/L (136-145) 03/19/20 05:58 Corrected Sodium TNP 03/19/20 05:58 Potassium 4.2 mmol/L (3.5-5.1) 03/19/20 05:58 Chloride 102 mmol/L (98-107) 03/19/20 05:58 Carbon Dioxide 22.6 mmol/L (21-32) 03/19/20 05:58 BUN 17 mg/dL (7-18) 03/19/20 05:58 Creatinine 1.82 mg/dL (0.55-1.02) H 03/19/20 05:58 Est GFR (MDRD) Af Amer 41 (>60) L 03/19/20 05:58 Est GFR (MDRD) Non-Af 34 (>60) L 03/19/20 05:58 Glucose 79 mg/dL (65-99) 03/19/20 05:58 POC Glucose (mg/dL) 67 mg/dL (65-99) 03/19/20 17:43 Calcium 9.4 mg/dL (8.5-10.1) 03/19/20 05:58 Corrected Calcium TNP 03/19/20 05:58 Total Bilirubin 0.30 mg/dL (0.2-1.0) 03/19/20 05:58 AST 36 Units/L (15-37) 03/19/20 05:58 ALT 31 Units/L (12-78) 03/19/20 05:58 Alkaline Phosphatase 126 Units/L (46-116) H 03/19/20 05:58 Total Protein 8.5 g/dL (6.4-8.2) H 03/19/20 05:58 Albumin 3.9 g/dL (3.4-5.0) 03/19/20 05:58 Globulin 4.6 g/dL (2.5-4.5) H 03/19/20 05:58 Albumin/Globulin Ratio 0.8 Ratio (1.1-2.1) L 03/19/20 05:58 Amylase 108 Units/L (25-115) 03/19/20 05:58 Lipase 234 Units/L (73-393) 03/19/20 05:58 Free T4 1.41 ng/dL (0.76-1.46) 03/19/20 05:58 TSH 3rd Generation 2.595 uIU/mL (0.358-3.74) 03/19/20 05:58 Specimen Type Clean catch urine 03/18/20 19:35 Urine Color Straw (YELLOW) 03/18/20 19:35 Urine Appearance Clear (CLEAR) 03/18/20 19:35 Urine pH 7.0 (5.0 - 8.0) 03/18/20 19:35 Ur Specific [place] 1.010 (1.000-1.030) 03/18/20 19:35 Urine Protein 3+ (NEGATIVE) 03/18/20 19:35 Urine Glucose (UA) Negative (NEGATIVE) 03/18/20 19:35 Urine Ketones Negative (NEGATIVE) 03/18/20 19:35 Urine Occult Blood 3+ (NEGATIVE) 03/18/20 19:35 Urine Nitrite Negative (NEGATIVE) 03/18/20 19:35 Urine Bilirubin Negative (NEGATIVE) 03/18/20 19:35 Urine Urobilinogen Normal (NORMAL) 03/18/20 19:35 Ur Leukocyte Esterase Negative (NEGATIVE) 03/18/20 19:35 Urine RBC 0-2 /HPF (0-3) 03/18/20 19:35 Urine WBC 0-2 /HPF (0-5) 03/18/20 19:35 Ur Squamous Epith Cells Moderate /HPF (NEGATIVE) 03/18/20 19:35 Urine Bacteria Trace /HPF (NEGATIVE) 03/18/20 19:35 Ur Culture Indicated? No/not indicated 03/18/20 19:35 Urine Opiates Screen Negative (NEG=<300) 03/18/20 19:35 Urine Methadone Screen Negative (NEG=<300) 03/18/20 19:35 Ur Barbiturates Screen Negative (NEG=<200) 03/18/20 19:35 Ur Phencyclidine Scrn Negative (NEG=<25) 03/18/20 19:35 Ur Amphetamines Screen Negative (NEG=<1000) 03/18/20 19:35 U Benzodiazepines Scrn Negative (NEG=<200) 03/18/20 19:35 Urine Cocaine Screen Negative (NEG=<300) 03/18/20 19:35 U Marijuana (THC) Screen Positive (NEG=<50) A 03/18/20 19:35 - Plan (1) Acute pancreatitis Status: Acute Qualifiers: Pancreatitis type: unspecified pancreatitis type Acute pancreatitis complication: unspecified Qualified Code(s): K85.90 - Acute pancreatitis without necrosis or infection, unspecified Plan: IV HYDRATION, PAIN CONTROL. BS AND BP CONTROL. PPI THERAPY, NAUSEA CONTROL. REPEAT AM LABS, AMYLASE AND LIPASE. ABD SERIES ON ADMISSION (2) Diabetic gastroparesis Status: Acute (3) Acute on chronic renal failure Status: Acute Qualifiers: (4) Left upper extremity deep vein thrombosis Status: Acute Qualifiers: (5) CAD (coronary artery disease) Status: Chronic Qualifiers: (6) Uncontrolled hypertension Status: Chronic
[2020-03-19] MEDS: SNACK - Diabetic Appropriate PO SCH (19:28)
[2020-03-19] MEDS ORDERED: COUMADIN TAB 2 MG (JANTOVEN) PO SCH (21:00)
[2020-03-19] MEDS ORDERED: COUMADIN PO SCH (21:00)
[2020-03-19] MEDS: PEPCID 20 MG IV PREMIX* 20 MG/50 ML BAG IV SCH (21:39)
[2020-03-20] MEDS: DILAUDID INJ IVP PRN ×3 (02:14→10:23)
[2020-03-20] MEDS: NS 1,000 ML IV 1,000 ML IV SCH ×2 (04:12→10:16)
[2020-03-20 06:18] LABS: BASOPHILS % (AUTO) 0.6 % (0.2-1.0); EOSINOPHILS # (AUTO) 0.4 x10^3/uL (0.0-0.2); EOSINOPHILS % (AUTO) 4.8 % (0.9-2.9); HEMATOCRIT 33.3 % (36.0-47.0); HEMOGLOBIN 10.9 g/dL (12.0-16.0); LYMPHOCYTES # (AUTO) 2.6 X10^3/uL (1.3-2.9); LYMPHOCYTES % (AUTO) 33.9 % (21.0-51.0); MEAN CORPUSCULAR HEMOGLOBIN 28.7 pg (27.0-34.0); MEAN CORPUSCULAR HGB CONC 32.7 g/dL (33.0-35.0); MEAN CORPUSCULAR VOLUME 87.8 fL (80.0-100.0); MEAN PLATELET VOLUME 8.6 fL (7.4-11.0); MONOCYTES # (AUTO) 0.6 x10^3/uL (0.3-0.8); MONOCYTES % (AUTO) 8.1 % (0.0-13.0); NEUTROPHILS % (AUTO) 52.6 % (42.0-75.0); PLATELET COUNT 273 X10^3/uL (150.0-450.0); RED BLOOD COUNT 3.79 X10^6/uL (3.5-5.4); RED CELL DISTRIBUTION WIDTH 15.9 % (11.6-16.5); WHITE BLOOD COUNT 7.6 X10^3/uL (3.6-10.0)
[2020-03-20 06:42] LABS: ALANINE AMINOTRANSFERASE 30 Units/L (12-78); ALBUMIN 3.5 g/dL (3.4-5.0); ALKALINE PHOSPHATASE 114 Units/L (46-116); ASPARTATE AMINO TRANSFERASE 26 Units/L (15-37); BLOOD UREA NITROGEN 13 mg/dL (7-18); CALCIUM 9.3 mg/dL (8.5-10.1); CARBON DIOXIDE 23.3 mmol/L (21-32); CHLORIDE 104 mmol/L (98-107); CREATININE 1.58 mg/dL (0.55-1.02); SODIUM 138 mmol/L (136-145); TOTAL PROTEIN 7.7 g/dL (6.4-8.2); eGFR NON BLACK RACES 40 (>60)
[2020-03-20 08:08] VITALS: BP 153/80
[2020-03-20] MEDS: APRESOLINE TAB 25 MG PO SCH (08:42)
[2020-03-20] MEDS: PROTONIX INJ 40 MG VIAL IVP SCH (08:43)
[2020-03-20] MEDS: COREG TAB 3.125 MG PO SCH (08:43)
[2020-03-20] MEDS: ZOFRAN INJ 4 MG VIAL IVP PRN (10:22)
== END 2020-03-20 13:15 | disposition home or self-care (01) ==
LOC: ER 11:58 → MED/SURG 11:58
PROVIDERS: ADMIT Internal Medicine; ATTEND Internal Medicine

== ENCOUNTER 2020-03-27 08:32 | Inpatient (IN) ==
[2020-03-27] MEDS ORDERED: NS 1000 ML 1,000 ML IV ONE (08:57)
[2020-03-27] MEDS ORDERED: MORPHINE SULFATE INJ 2 MG INJ IVP ONE ×2 (08:57→10:21)
[2020-03-27] MEDS ORDERED: ZOFRAN INJ 4 MG VIAL IVP ONE (08:57)
[2020-03-27] MEDS ORDERED: ATIVAN INJ 2 MG VIAL IVP ONE (08:59)
[2020-03-27] MEDS ORDERED: ZOFRAN INJ 4 MG VIAL ONE ×2 (09:05→12:55)
[2020-03-27] MEDS ORDERED: NS 1000 ML 1,000 ML ONE ×2 (09:05→12:55)
[2020-03-27] MEDS ORDERED: MORPHINE SULFATE INJ 2 MG INJ ONE ×3 (09:05→12:55)
[2020-03-27] MEDS ORDERED: ATIVAN INJ 2 MG VIAL ONE (09:06)
[2020-03-27 09:25] LABS: BASOPHILS # (AUTO) 0.1 X10^3/uL (0.0-0.1); BASOPHILS % (AUTO) 1.3 % (0.2-1.0); EOSINOPHILS # (AUTO) 0.1 x10^3/uL (0.0-0.2); EOSINOPHILS % (AUTO) 0.9 % (0.9-2.9); HEMATOCRIT 38.5 % (36.0-47.0); HEMOGLOBIN 12.5 g/dL (12.0-16.0); LYMPHOCYTES # (AUTO) 2.2 X10^3/uL (1.3-2.9); LYMPHOCYTES % (AUTO) 21.7 % (21.0-51.0); MEAN CORPUSCULAR HEMOGLOBIN 28.1 pg (27.0-34.0); MEAN CORPUSCULAR HGB CONC 32.5 g/dL (33.0-35.0); MEAN CORPUSCULAR VOLUME 86.6 fL (80.0-100.0); MEAN PLATELET VOLUME 8.9 fL (7.4-11.0); MONOCYTES # (AUTO) 0.3 x10^3/uL (0.3-0.8); MONOCYTES % (AUTO) 2.9 % (0.0-13.0); NEUTROPHILS # (AUTO) 7.4 x10^3/uL (2.2-4.8); NEUTROPHILS % (AUTO) 73.2 % (42.0-75.0); PLATELET COUNT 329 X10^3/uL (150.0-450.0); RED BLOOD COUNT 4.44 X10^6/uL (3.5-5.4); RED CELL DISTRIBUTION WIDTH 16.1 % (11.6-16.5); WHITE BLOOD COUNT 10.1 X10^3/uL (3.6-10.0)
--- NOTE | 2020-03-27 09:25 | RAD ---
HISTORYABDOMINAL PAIN, N/VSTUDYACUTE ABDOMEN [id number] view acute abdomen series.FINDINGSThe cardiac and mediastinal contours are within normal limits. The lungs are clear without focal consolidation or segmental collapse. No pleural effusion or pneumothorax. Left chest wall port with tip in stable position.Nonobstructive bowel gas pattern. No definite pneumatosis, free air or portal venous gas. No suspicious abdominal calcifications. Cholecystectomy. Calcifications in the pelvis are likely phleboliths.IMPRESSIONNonobstructive bowel gas pattern.Electronically signed by: Roberto Carlos Weaver (Mar 27, 2020 09:23:45)
--- NOTE | 2020-03-27 09:31 | DR.NAUSEAF ---
HPI Time Seen Time Seen by Provider: 03/27/20 08:57 Primary Care Physician Primary Care Physician: BLAIRE HPI Comment HPI Comment: Patient presents with 2-3 days of abdominal pain and N/V. Notes a history of gastroparesis. Notes that she tried to take her medications for pain and nausea, but that she vomited the meds up. No fever, chills. No known sick contacts. Complaints Chief Complaint:: IN PAIN ALL OVER,NAUSEA,AND FEEL REAL HOT. Self Treatment fo Chief Complaint: PHENERGAN,ZOFRAN,PERCOCET YESTERDAY COVID-19 Coronavirus risk:travel/contact w/high risk person: No Has patient experienced Coronavirus symptoms: No Source History Provided: Patient Mode of Arrival Mode of Arrival: Wheelchair Timing Onset of Chief Complaint: 03/26/20 PMH PMH Past Medical History: Yes Past Medical History: Anxiety, Arthritis, Coronary Artery Disease, Diabetes, GERD, Hypertension, PUD and Renal Disease Past Surgical History: Yes Surgical History: Cholecystectomy and Other Family History History of Family Medical Conditions: Yes Family Medical History: Diabetes Mellitus and Coronary Artery Disease Social History Do you use any recreational Drugs:: No Lives With: Family Lives Where: Home Travel Risk Coronavirus risk:travel/contact w/high risk person: No Has patient experienced Coronavirus symptoms: No Infectious screening In the last 2 months have you had wt loss of >10#?: NO Have you had fever, night sweats or hemotysis?: No Have you traveled outside the country in the last 6 months?: No Isolation: Standard ROS Review of Systems Constitutional: See HPI Gastrointestinal/Abdominal: Abdominal Pain, Nausea and Vomiting All Other Systems: Reviewed and Negative PE Vital Signs Vitals: Temperature 99.5 F Pulse Rate 110 Respiratory Rate 21 Blood Pressure [Right Arm] 153/80 Blood Pressure 231/119 O2 Sat by Pulse Oximetry 99 General Limitations: No Limitations General Appearance: Alert and In No Apparent Distress Head Head Exam: Normal Inspection, Atraumatic and Normocephalic Eyes Eye exam: Normal Appearance and EOMI ENT ENT Exam: Normal Exam and Normal Oropharynx Neck Neck Exam: Normal Inspection, Full ROM and Trachea Midline Chest Chest Inspection: Normal Inspection Respiratory Respiratory Exam: Normal Lung Sounds Bilat Cardiovascular Cardiovascular Exam: Normal Rhythm and Tachycardia Abdominal Exam Abdominal Exam: Normal Inspection and Tenderness Extremities Extremities Exam: Normal Inspection and Full ROM Neurologic Neurological Exam: Alert and Oriented X3 Psychiatric Psychiatric Exam: Normal Affect and Anxious Skin Skin Exam: Warm, Dry and Intact COURSE Reevaluation 1st: Unchanged Consultation Called: 10:26 Consultation Comments: Spoke with Dr. Auguste who has accepted patient for admission [facility] Labs Reviewed Laboratory Results Reviewed?: Yes Result Diagrams: 03/27/20 09:16 03/27/20 09:16 Laboratory: WBC 10.1 X10^3/uL (3.6-10.0) H 03/27/20 09:16 RBC 4.44 X10^6/uL (3.5-5.4) 03/27/20 09:16 Hgb 12.5 g/dL (12.0-16.0) 03/27/20 09:16 Hct 38.5 % (36.0-47.0) 03/27/20 09:16 MCV 86.6 fL (80.0-100.0) 03/27/20 09:16 MCH 28.1 pg (27.0-34.0) 03/27/20 09:16 MCHC 32.5 g/dL (33.0-35.0) L 03/27/20 09:16 RDW 16.1 % (11.6-16.5) 03/27/20 09:16 Plt Count 329 X10^3/uL (150.0-450.0) 03/27/20 09:16 MPV 8.9 fL (7.4-11.0) 03/27/20 09:16 Neut % (Auto) 73.2 % (42.0-75.0) 03/27/20 09:16 Lymph % (Auto) 21.7 % (21.0-51.0) 03/27/20 09:16 [place] % (Auto) 2.9 % (0.0-13.0) 03/27/20 09:16 Eos % (Auto) 0.9 % (0.9-2.9) 03/27/20 09:16 Baso % (Auto) 1.3 % (0.2-1.0) H 03/27/20 09:16 Neut # (Auto) 7.4 x10^3/uL (2.2-4.8) H 03/27/20 09:16 Lymph # (Auto) 2.2 X10^3/uL (1.3-2.9) 03/27/20 09:16 [place] # (Auto) 0.3 x10^3/uL (0.3-0.8) 03/27/20 09:16 Eos # (Auto) 0.1 x10^3/uL (0.0-0.2) 03/27/20 09:16 Baso # (Auto) 0.1 X10^3/uL (0.0-0.1) 03/27/20 09:16 Absolute Nucleated RBC 0.0 /100WBC 03/27/20 09:16 Sodium 139 mmol/L (136-145) 03/27/20 09:16 Corrected Sodium 142 mmol/L (136-145) 03/27/20 09:16 Potassium 4.7 mmol/L (3.5-5.1) 03/27/20 09:16 Chloride 102 mmol/L (98-107) 03/27/20 09:16 Carbon Dioxide 22.4 mmol/L (21-32) 03/27/20 09:16 BUN 21 mg/dL (7-18) H 03/27/20 09:16 Creatinine 1.85 mg/dL (0.55-1.02) H 03/27/20 09:16 Est GFR (MDRD) Af Amer 40 (>60) L 03/27/20 09:16 Est GFR (MDRD) Non-Af 33 (>60) L 03/27/20 09:16 Glucose 215 mg/dL (65-99) H 03/27/20 09:16 Calcium 10.0 mg/dL (8.5-10.1) 03/27/20 09:16 Corrected Calcium TNP 03/27/20 09:16 Total Bilirubin 0.40 mg/dL (0.2-1.0) 03/27/20 09:16 AST 32 Units/L (15-37) 03/27/20 09:16 ALT 27 Units/L (12-78) 03/27/20 09:16 Alkaline Phosphatase 130 Units/L (46-116) H 03/27/20 09:16 Total Protein 9.2 g/dL (6.4-8.2) H 03/27/20 09:16 Albumin 4.1 g/dL (3.4-5.0) 03/27/20 09:16 Globulin 5.1 g/dL (2.5-4.5) H 03/27/20 09:16 Albumin/Globulin Ratio 0.8 Ratio (1.1-2.1) L 03/27/20 09:16 Amylase 230 Units/L (25-115) H 03/27/20 09:16 Lipase 980 Units/L (73-393) H 03/27/20 09:16 Opioid Opioid Risk Tool Age (Duc box if 16-45): Yes History of Preadolescent Sexual Abuse: No Total: 1 Total Score Risk Category: Low Risk Copyright: [facility] predicting aberrant behaviors Diagnosis Discharge Problem: Acute pancreatitis Qualifiers: Pancreatitis type: unspecified pancreatitis type Acute pancreatitis complication: unspecified Qualified Code(s): K85.90 - Acute pancreatitis without necrosis or infection, unspecified
[2020-03-27 09:46] LABS: ALANINE AMINOTRANSFERASE 27 Units/L (12-78); ALBUMIN 4.1 g/dL (3.4-5.0); ALKALINE PHOSPHATASE 130 Units/L (46-116); AMYLASE 230 Units/L (25-115); ASPARTATE AMINO TRANSFERASE 32 Units/L (15-37); BLOOD UREA NITROGEN 21 mg/dL (7-18); CARBON DIOXIDE 22.4 mmol/L (21-32); CHLORIDE 102 mmol/L (98-107); COR NA(FOR HYPERGLY) 142 mmol/L (136-145); CREATININE 1.85 mg/dL (0.55-1.02); LIPASE 980 Units/L (73-393); SODIUM 139 mmol/L (136-145); TOTAL PROTEIN 9.2 g/dL (6.4-8.2); eGFR NON BLACK RACES 33 (>60)
[2020-03-27] MEDS ORDERED: APRESOLINE INJ 20 MG VIAL IVP ONE (10:03)
[2020-03-27] MEDS ORDERED: APRESOLINE INJ 20 MG VIAL ONE (10:08)
[2020-03-27] MEDS ORDERED: DILAUDID INJ IVP ONE (11:13)
[2020-03-27] MEDS ORDERED: DILAUDID INJ ONE (11:14)
[2020-03-27] MEDS ORDERED: APRESOLINE INJ 20 MG VIAL IVP PRN (12:36)
[2020-03-27] MEDS ORDERED: HumuLIN R SUBCUT PRN (12:37)
[2020-03-27] MEDS: ZOFRAN INJ 4 MG VIAL IVP PRN ×2 (12:55→20:39)
[2020-03-27] MEDS: NS + KCL 40 MEQ/L 1,000 ML IV SCH (13:00)
[2020-03-27] MEDS: MORPHINE SULFATE INJ 2 MG INJ IVP PRN ×4 (13:09→22:40)
[2020-03-27 14:20] VITALS: BMI 30.2
[2020-03-27] MEDS ORDERED: PHENERGAN INJ 25 MG IM ONE (17:08)
[2020-03-27] MEDS: SNACK - Diabetic Appropriate PO SCH (22:40)
[2020-03-28] MEDS: MORPHINE SULFATE INJ 2 MG INJ IVP PRN ×6 (01:06→22:15)
[2020-03-28] MEDS: NS + KCL 40 MEQ/L 1,000 ML IV SCH ×6 (01:07→23:30)
[2020-03-28] MEDS: ZOFRAN INJ 4 MG VIAL IVP PRN (05:52)
[2020-03-28 06:37] LABS: BASOPHILS % (AUTO) 0.5 % (0.2-1.0); EOSINOPHILS # (AUTO) 0.4 x10^3/uL (0.0-0.2); EOSINOPHILS % (AUTO) 4.4 % (0.9-2.9); HEMATOCRIT 31.8 % (36.0-47.0); HEMOGLOBIN 10.4 g/dL (12.0-16.0); LYMPHOCYTES # (AUTO) 3.2 X10^3/uL (1.3-2.9); LYMPHOCYTES % (AUTO) 36.3 % (21.0-51.0); MEAN CORPUSCULAR HEMOGLOBIN 28.5 pg (27.0-34.0); MEAN CORPUSCULAR HGB CONC 32.5 g/dL (33.0-35.0); MEAN CORPUSCULAR VOLUME 87.7 fL (80.0-100.0); MEAN PLATELET VOLUME 8.5 fL (7.4-11.0); MONOCYTES # (AUTO) 0.7 x10^3/uL (0.3-0.8); MONOCYTES % (AUTO) 8.4 % (0.0-13.0); NEUTROPHILS # (AUTO) 4.4 x10^3/uL (2.2-4.8); NEUTROPHILS % (AUTO) 50.4 % (42.0-75.0); PLATELET COUNT 246 X10^3/uL (150.0-450.0); RED BLOOD COUNT 3.63 X10^6/uL (3.5-5.4); RED CELL DISTRIBUTION WIDTH 16.1 % (11.6-16.5); WHITE BLOOD COUNT 8.8 X10^3/uL (3.6-10.0)
[2020-03-28 07:08] LABS: ALANINE AMINOTRANSFERASE 26 Units/L (12-78); ALBUMIN 3.5 g/dL (3.4-5.0); ALKALINE PHOSPHATASE 106 Units/L (46-116); ASPARTATE AMINO TRANSFERASE 20 Units/L (15-37); BLOOD UREA NITROGEN 17 mg/dL (7-18); CALCIUM 9.1 mg/dL (8.5-10.1); CARBON DIOXIDE 24.1 mmol/L (21-32); CHLORIDE 105 mmol/L (98-107); CREATININE 1.72 mg/dL (0.55-1.02); LIPASE 205 Units/L (73-393); SODIUM 140 mmol/L (136-145); TOTAL PROTEIN 7.5 g/dL (6.4-8.2); eGFR NON BLACK RACES 36 (>60)
[2020-03-28] MEDS ORDERED: DONNATAL TAB PO SCH (09:00)
[2020-03-28] MEDS: REGLAN INJ 10 MG VIAL IVP PRN (09:50)
[2020-03-28] MEDS: BENTYL I.M. INJ 10 MG IM SCH ×2 (11:09→18:04)
[2020-03-28] MEDS ORDERED: PERCOCET TAB 5/325 MG PO PRN (13:51)
--- NOTE | 2020-03-28 13:51 | DR.H&P ---
H&P - History & Physical for Day of: H&P Date: 03/27/20 - Chief Complaint Chief Complaint: ABDOMINAL PAIN, N/V - History of Present Illness History of Present Illness: Patient presents with 2-3 days of abdominal pain and N/V. Notes a history of gastroparesis. Notes that she tried to take her medications for pain and nausea, but that she vomited the meds up. No fever, chills. No known sick contacts. - Past Medical History Past Medical History: Coronary Artery Disease, Hypertension, Diabetes, Renal Disease, Anxiety, PUD, GERD, Arthritis Additional Medical History: MORBID OBESITY, Pancreatitis, gastroparesis, osteomyelitis - Past Surgical History Surgical History: Cholecystectomy, Other Additional Surgical History: BKA - Family History Family Medical History: Diabetes Mellitus, Coronary Artery Disease - Social History Does patient currently use any type of tobacco product: No Have you used tobacco products in the last 12 months: No Type of Tobacco Use: None Does any household member use tobacco: No Alcohol Use: None Drug Use: None Prescription drug monitoring program results: PDMP reviewed and no concerns identified - Medications Home Medications: Penicillins Allergy (Verified 03/18/20 12:06) CONTINUE taking the following medications citalopram 20 mg PO DAILY 03/27/20 [History] lisinopril 40 mg PO DAILY 03/27/20 [History] zolpidem 5 mg PO HS 03/27/20 [History] - Review of Systems Constitutional: Weakness Eyes: No Symptoms Reported ENT: No Symptoms Reported Respiratory: No Symptoms Reported Cardiovascular: No Symptoms Reported Gastrointestinal: Nausea, Vomiting, Abdominal Pain. denies: Diarrhea Genitourinary: No Symptoms Reported Musculoskeletal: Back Pain Skin: No Symptoms Reported Neurological: No Symptoms Reported - Physical Exam Vital Signs: Temperature 97.8 F Pulse Rate [Left Brachial] 97 Pulse Rate 105 Respiratory Rate 20 Blood Pressure [Left Arm] 174/96 Blood Pressure [Right Arm] 176/82 Blood Pressure 142/87 O2 Sat by Pulse Oximetry 100 Oriented: Normal Eyes: Blurred Vision (CHRONIC VISION IMPAIRMENT) Ear: Normal Nose: Normal Throat: Dry Respiratory: RLL Diminished, LLL Diminished Cardiovascular: Normal : Normal Auscultation: Bowel Sounds: Normal Palpation: Normal Tenderness: RUQ, LUQ, Epigastric Skin: Decreased Turgur Musculoskeletal: Deformity Psychiatric: Anxiety Affect: Anxious Speech Pattern: Clear, Appropriate - Assessment/Plan (1) Acute pancreatitis Status: Acute Plan: ADMIT, NPO, IV HYDRATION. REPEAT AM LABS, BS CONTROL. BP CONTROL. VERIFY HOME MEDICATION, PPI THERAPY, PAIN AND NAUSEA CONTROL (2) Diabetic gastroparesis Status: Acute (3) Acute on chronic renal failure Qualifiers: Status: Acute (4) CAD (coronary artery disease) Qualifiers: Status: Chronic (5) Uncontrolled hypertension Status: Chronic (6) Diabetic nephropathy Status: Chronic - Allergies Allergies/Adverse Reactions: Allergies Allergy/AdvReac Type Severity Reaction Status Date / Time Penicillins Allergy Verified 03/18/20 12:06
[2020-03-28] MEDS: SEROquel TAB 25 mg PO SCH ×2 (18:05→20:30)
[2020-03-28] MEDS ORDERED: COREG TAB 3.125 MG ONE (19:55)
[2020-03-28] MEDS ORDERED: COUMADIN ONE (19:56)
[2020-03-28] MEDS: COREG TAB 3.125 MG PO SCH (20:28)
[2020-03-28] MEDS: COUMADIN PO SCH (20:29)
[2020-03-28] MEDS: SNACK - Diabetic Appropriate PO SCH (20:29)
[2020-03-29] MEDS: MORPHINE SULFATE INJ 2 MG INJ IVP PRN ×6 (02:48→23:45)
[2020-03-29] MEDS: BENTYL I.M. INJ 10 MG IM SCH ×3 (02:50→18:53)
[2020-03-29] MEDS: NS + KCL 40 MEQ/L 1,000 ML IV SCH (05:39)
[2020-03-29 06:21] LABS: BASOPHILS % (AUTO) 0.5 % (0.2-1.0); EOSINOPHILS # (AUTO) 0.4 x10^3/uL (0.0-0.2); EOSINOPHILS % (AUTO) 5.3 % (0.9-2.9); HEMATOCRIT 29.1 % (36.0-47.0); HEMOGLOBIN 9.5 g/dL (12.0-16.0); LYMPHOCYTES # (AUTO) 2.9 X10^3/uL (1.3-2.9); LYMPHOCYTES % (AUTO) 40.4 % (21.0-51.0); MEAN CORPUSCULAR HEMOGLOBIN 28.6 pg (27.0-34.0); MEAN CORPUSCULAR HGB CONC 32.5 g/dL (33.0-35.0); MEAN CORPUSCULAR VOLUME 87.8 fL (80.0-100.0); MEAN PLATELET VOLUME 8.9 fL (7.4-11.0); MONOCYTES # (AUTO) 0.5 x10^3/uL (0.3-0.8); NEUTROPHILS # (AUTO) 3.4 x10^3/uL (2.2-4.8); NEUTROPHILS % (AUTO) 46.8 % (42.0-75.0); PLATELET COUNT 223 X10^3/uL (150.0-450.0); RED BLOOD COUNT 3.32 X10^6/uL (3.5-5.4); RED CELL DISTRIBUTION WIDTH 15.7 % (11.6-16.5); WHITE BLOOD COUNT 7.3 X10^3/uL (3.6-10.0)
[2020-03-29 06:45] LABS: ALANINE AMINOTRANSFERASE 23 Units/L (12-78); ALBUMIN 3.2 g/dL (3.4-5.0); ALKALINE PHOSPHATASE 96 Units/L (46-116); ASPARTATE AMINO TRANSFERASE 16 Units/L (15-37); BLOOD UREA NITROGEN 12 mg/dL (7-18); CHLORIDE 108 mmol/L (98-107); COR CA(FOR HYPOALB) 9.6 mg/dL (8.5-10.1); SODIUM 139 mmol/L (136-145); TOTAL PROTEIN 6.9 g/dL (6.4-8.2); eGFR NON BLACK RACES 42 (>60)
[2020-03-29] MEDS ORDERED: KAYEXALATE SUSP PO NR (09:00)
[2020-03-29] MEDS: NS 1000 ML 1,000 ML IV SCH (09:43)
[2020-03-29] MEDS: SEROquel TAB 25 mg PO SCH ×2 (10:30→18:52)
[2020-03-29] MEDS: COREG TAB 3.125 MG PO SCH ×2 (11:34→21:55)
[2020-03-29] MEDS: REGLAN INJ 10 MG VIAL IVP PRN (12:35)
[2020-03-29] MEDS: ZESTRIL TAB 40 MG PO SCH (18:54)
[2020-03-29] MEDS: SNACK - Diabetic Appropriate PO SCH (20:25)
[2020-03-29] MEDS: COUMADIN PO SCH (21:35)
[2020-03-29] MEDS: APRESOLINE TAB 25 MG PO SCH (21:55)
[2020-03-30] MEDS: BENTYL I.M. INJ 10 MG IM SCH (02:00)
[2020-03-30] MEDS: NS 1000 ML 1,000 ML IV SCH (03:39)
[2020-03-30] MEDS: MORPHINE SULFATE INJ 2 MG INJ IVP PRN (05:56)
[2020-03-30 07:02] LABS: BASOPHILS % (AUTO) 0.6 % (0.2-1.0); EOSINOPHILS # (AUTO) 0.4 x10^3/uL (0.0-0.2); EOSINOPHILS % (AUTO) 6.3 % (0.9-2.9); HEMATOCRIT 28.3 % (36.0-47.0); HEMOGLOBIN 9.2 g/dL (12.0-16.0); LYMPHOCYTES # (AUTO) 2.5 X10^3/uL (1.3-2.9); LYMPHOCYTES % (AUTO) 37.4 % (21.0-51.0); MEAN CORPUSCULAR HEMOGLOBIN 28.8 pg (27.0-34.0); MEAN CORPUSCULAR HGB CONC 32.7 g/dL (33.0-35.0); MONOCYTES # (AUTO) 0.6 x10^3/uL (0.3-0.8); MONOCYTES % (AUTO) 9.6 % (0.0-13.0); NEUTROPHILS # (AUTO) 3.1 x10^3/uL (2.2-4.8); NEUTROPHILS % (AUTO) 46.1 % (42.0-75.0); PLATELET COUNT 207 X10^3/uL (150.0-450.0); RED BLOOD COUNT 3.22 X10^6/uL (3.5-5.4); RED CELL DISTRIBUTION WIDTH 15.9 % (11.6-16.5); WHITE BLOOD COUNT 6.7 X10^3/uL (3.6-10.0)
[2020-03-30 07:11] LABS: ALBUMIN 3.1 g/dL (3.4-5.0); CALCIUM 8.8 mg/dL (8.5-10.1); CARBON DIOXIDE 23.1 mmol/L (21-32); COR CA(FOR HYPOALB) 9.5 mg/dL (8.5-10.1); CREATININE 1.65 mg/dL (0.55-1.02); TOTAL PROTEIN 6.7 g/dL (6.4-8.2)
[2020-03-30 07:22] LABS: AMYLASE 87 Units/L (25-115); LIPASE 353 Units/L (73-393)
[2020-03-30 09:12] VITALS: BP 141/82
[2020-03-30] MEDS: APRESOLINE TAB 25 MG PO SCH (09:12)
[2020-03-30] MEDS: SEROquel TAB 25 mg PO SCH (09:13)
[2020-03-30] MEDS: COREG TAB 3.125 MG PO SCH (09:13)
[2020-03-30] MEDS: ZESTRIL TAB 40 MG PO SCH (09:13)
== END 2020-03-30 11:55 | disposition home health service (06) | DRG 439 ==
LOC: ER 08:32 → MED/SURG 08:32
PROVIDERS: ADMIT Internal Medicine; ATTEND Internal Medicine
DX: R26.89 Other abnormalities of gait and mobility; Z20.828 Contact with and (suspected) exposure to other viral communicable diseases; K85.90 Acute pancreatitis without necrosis or infection, unspecified; I12.9 Hypertensive chronic kidney disease with stage 1 through stage 4 chronic kidney disease, or unspecified chronic kidney disease; I25.10 Atherosclerotic heart disease of native coronary artery without angina pectoris; E87.5 Hyperkalemia; F41.8 Other specified anxiety disorders; K31.84 Gastroparesis; N17.8 Other acute kidney failure; R10.84 Generalized abdominal pain; R11.2 Nausea with vomiting, unspecified; K21.9 Gastro-esophageal reflux disease without esophagitis; N18.4 Chronic kidney disease, stage 4 (severe); E11.40 Type 2 diabetes mellitus with diabetic neuropathy, unspecified; E11.65 Type 2 diabetes mellitus with hyperglycemia

== ENCOUNTER 2020-04-22 09:30 | Observation (INO) ==
[2020-04-22 10:00] VITALS: BMI 31.3
[2020-04-22] MEDS ORDERED: ZOFRAN INJ 4 MG VIAL IVP ONE (10:05)
[2020-04-22] MEDS ORDERED: NS 1000 ML 1,000 ML IV ONE (10:05)
[2020-04-22] MEDS ORDERED: MORPHINE SULFATE INJ 4 MG IVP ONE ×2 (10:08→10:56)
--- NOTE | 2020-04-22 10:09 | ED.ABDFE ---
HPI Time Seen Time Seen by Provider: 04/22/20 09:54 HPI Comment HPI Comment: PATIENT IS 34YR OLD FEMALE IN ER WITH ABDOMINAL PAIN WITH NAUSEA AND VOMITING THAT STARTED TODAY. PAIN IS SHARP AND CRAMPING RADIATING TO BACK. NO DIARRHEA OR DYSURIA OR FEVER. BP ELEVATED IN ER, HISTORY HTN AND DM. PATIENT HAVE HISTORY OF DIABETIC GASTROPARESIS AND HISTORY OF PANCREATITIS. HER SYMPTOMS STARTED THIS AM AND IS PERSISTENT AND GETTING WORSE. Complaint Doctors Chief Complaint Comments: ABDOMINAL PAIN, NAUSEA AND VOMITING. COVID-19 Coronavirus risk:travel/contact w/high risk person: No Has patient experienced Coronavirus symptoms: No Reviewed Nurses Notes Review: Yes Source History Provided: Patient Mode of arrival Mode of Arrival: Ambulatory Timing Came on: Suddenly Duration Since Onset: Constant Duration: Hours Location Location: Diffuse Severity Severity: Moderate Quality Quality: Cramping and Generalized Context History of: None (CHOLECYSTECTOMY.) Modifying factors Worsening Factors: Food Improving Factors: Lying Still Associated signs and symptoms Associated Signs and Symptoms: Nausea and Vomiting PMH PMH Past Medical History: Anxiety, Arthritis, Coronary Artery Disease, Depression, Diabetes, Dyslipidemia, GERD, Hypertension, PUD and Renal Disease Past Surgical History: Yes Surgical History: Cholecystectomy and Other Family History Family Medical History: Diabetes Mellitus and Coronary Artery Disease Social History Do you use any recreational Drugs:: No ROS Review of Systems Constitutional: See HPI, Weakness and Fatigue; negative Fever Eyes: No Symptoms Reported and See HPI; negative Blurred Vision and Diplopia ENTM: No Symptoms Reported and See HPI; negative Nose Discharge and Nose Congestion Respiratoy: No Symptoms Reported and See HPI; negative Moist Cough, Short of Breath and Wheezing Cardiovascular: No Symptoms Reported and See HPI; negative Chest Pain, Edema and Palpitations Gastrointestinal/Abdominal: See HPI, Abdominal Pain, Nausea and Vomiting; negative Diarrhea Genitourinary: No Symptoms Reported and See HPI; negative Dysuria, Frequency and Hematuria Neurological: See HPI, Headache and Weakness; negative Dizziness Musculoskeletal: See HPI and Back Pain Integumentary: No Symptoms Reported, See HPI and Change in Color; negative Rash and Juandice Hematologic/Lymphatic: No Symptoms Reported, See HPI and Swollen Glands; negative Easy Bruising Endocrine: No Symptoms Reported and See HPI Psychiatric: No Symptoms Reported and See HPI All Other Systems: Reviewed and Negative PE Vital Signs Vitals: Temperature 98.6 F Pulse Rate 110 Respiratory Rate 22 Blood Pressure [Left Arm] 141/82 Blood Pressure [Right Arm] 165/92 Blood Pressure [Left Arm] 164/90 Blood Pressure [Right Arm] 140/81 Blood Pressure [Left Arm] 144/81 Blood Pressure 234/110 O2 Sat by Pulse Oximetry 98 General Limitations: No Limitations General Appearance: Alert and In No Apparent Distress Head Head Exam: Normal Inspection Eyes Eye exam: Normal Appearance and PERRL; negative Scleral Icterus and Conjunctival Injection ENT ENT Exam: Normal Exam, Normal Oropharynx, Normal External Ear Exam and TM's Normal Bilaterally Neck Neck Exam: Normal Inspection and Trachea Midline; negative Tenderness and Lymp hadenopathy Chest Chest Inspection: Normal Inspection and Symmetric Chest Wall Rise; negative Tenderness Respiratory Respiratory Exam: Normal Lung Sounds Bilat; negative Accessory Muscle Use, Chest Wall Tenderness and Respiratory Distress Respiratory Exam: Bilateral: Rhonchi and Lower: Rhonchi Cardiovascular Cardiovascular Exam: Regular Rate, Normal Rhythm and Normal Heart Sounds; negative Systolic Murmur and Diastolic Murmur Abdominal Exam Abdominal Exam: Normal Inspection, Normal Bowel Sounds, Soft and Tenderness Rectal Rectal Exam: Deferred Back Back Exam: Normal Inspection and Paraspinal Tenderness; negative Tenderness, (R) CVA Tenderness and (L) CVA Tenderness Extremeties Extremities Exam: Normal Inspection, Normal Capillary Refill and Other (BKA LLE.) External Exam: Female: Deferred : Speculum Exam (Female): Deferred : Bimanual Exam (female): Deferred Neurologic Neurological Exam: Alert, Oriented X3 and Other (PERIPHERAL NEUROPATHY.); negative Motor Sensory Deficit Psychiatric Psychiatric Exam: Normal Affect and Anxious Skin Skin Exam: Dry MDM Additional Information Obtained From Additional information provided by: Old Records Differential Diagnosis Differential Diagnosis- Considerations may include:: Bowel Obstruction, Constipation, Diverticular disease, Gastritus/PUD, Gastroenteritis, Inflammatory BD, Pancreatitis, Urinary tract infection and Urolithiasis Other differential diagnosis: DIABETIC GASTROPARESIS, DEHYDRATION. COURSE Treatment Treatment: SEE ORDERS. NS 1L IV BOLUS, ZOFRAN 4MG IV, MORPHIN 4MG IV, PROTONIX 40MG IV. PAIN UNCHANGE. MORPHIN 4MG IV AND HYDRALAZINE 20MG IV. BP IMPROVING. PAIN SLIGHLY IMPROVED. DILAUDID 2MG IV. Reevaluation 1st: Improved Consultation Consultation Comments: DR. SAMAYOA WILL ADMIT PATIENT. Education/Counseling Education/Counseling: Patient Educated On: Diagnosis and Needs for Follow Up [facility]OR Labs Reviewed Laboratory Results Reviewed?: Yes Result Diagrams: 04/23/20 05:50 04/23/20 05:50 Laboratory: WBC 9.2 X10^3/uL (3.6-10.0) 04/22/20 10:20 RBC 4.54 X10^6/uL (3.5-5.4) 04/22/20 10:20 Hgb 13.0 g/dL (12.0-16.0) 04/22/20 10:20 Hct 40.2 % (36.0-47.0) 04/22/20 10:20 MCV 88.7 fL (80.0-100.0) 04/22/20 10:20 MCH 28.6 pg (27.0-34.0) 04/22/20 10:20 MCHC 32.2 g/dL (33.0-35.0) L 04/22/20 10:20 RDW 15.2 % (11.6-16.5) 04/22/20 10:20 Plt Count 318 X10^3/uL (150.0-450.0) 04/22/20 10:20 MPV 9.5 fL (7.4-11.0) 04/22/20 10:20 Neut % (Auto) 75.3 % (42.0-75.0) H 04/22/20 10:20 Lymph % (Auto) 18.6 % (21.0-51.0) L 04/22/20 10:20 [place] % (Auto) 3.2 % (0.0-13.0) 04/22/20 10:20 Eos % (Auto) 2.0 % (0.9-2.9) 04/22/20 10:20 Baso % (Auto) 0.9 % (0.2-1.0) 04/22/20 10:20 Neut # (Auto) 6.9 x10^3/uL (2.2-4.8) H 04/22/20 10:20 Lymph # (Auto) 1.7 X10^3/uL (1.3-2.9) 04/22/20 10:20 [place] # (Auto) 0.3 x10^3/uL (0.3-0.8) 04/22/20 10:20 Eos # (Auto) 0.2 x10^3/uL (0.0-0.2) 04/22/20 10:20 Baso # (Auto) 0.1 X10^3/uL (0.0-0.1) 04/22/20 10:20 Absolute Nucleated RBC 0.0 /100WBC 04/22/20 10:20 Sodium 144 mmol/L (136-145) 04/22/20 10:20 Corrected Sodium 147 mmol/L (136-145) H 04/22/20 10:20 Potassium 4.4 mmol/L (3.5-5.1) 04/22/20 10:20 Chloride 104 mmol/L (98-107) 04/22/20 10:20 Carbon Dioxide 27.1 mmol/L (21-32) 04/22/20 10:20 BUN 22 mg/dL (7-18) H 04/22/20 10:20 Creatinine 1.89 mg/dL (0.55-1.02) H 04/22/20 10:20 Est GFR (MDRD) Af Amer 39 (>60) L 04/22/20 10:20 Est GFR (MDRD) Non-Af 32 (>60) L 04/22/20 10:20 Glucose 236 mg/dL (65-99) H 04/22/20 10:20 Calcium 10.2 mg/dL (8.5-10.1) H 04/22/20 10:20 Corrected Calcium TNP 04/22/20 10:20 Total Bilirubin 0.30 mg/dL (0.2-1.0) 04/22/20 10:20 AST 20 Units/L (15-37) 04/22/20 10:20 ALT 20 Units/L (12-78) 04/22/20 10:20 Alkaline Phosphatase 156 Units/L (46-116) H 04/22/20 10:20 Total Protein 9.0 g/dL (6.4-8.2) H 04/22/20 10:20 Albumin 4.1 g/dL (3.4-5.0) 04/22/20 10:20 Globulin 4.9 g/dL (2.5-4.5) H 04/22/20 10:20 Albumin/Globulin Ratio 0.8 Ratio (1.1-2.1) L 04/22/20 10:20 Amylase 131 Units/L (25-115) H 04/22/20 10:20 Lipase 568 Units/L (73-393) H 04/22/20 10:20 SARS CoV-2 RNA Rapid JONATHAN Negative (NEGATIVE) 04/22/20 11:42 XRAY XRAY Interpreted by: Radiologist (REPORT NOTED AND DISCUSSED WITH PATIENT.) and Self Opioid Opioid Risk Tool Age (Duc box if 16-45): Yes History of Preadolescent Sexual Abuse: No Total: 1 Total Score Risk Category: Low Risk Copyright: [facility] predicting aberrant behaviors Diagnosis Discharge Problem: Diabetic gastroparesis, Acute dehydration Acute pancreatitis Qualifiers: Pancreatitis type: unspecified pancreatitis type Acute pancreatitis complication: unspecified Qualified Code(s): K85.90 - Acute pancreatitis without necrosis or infection, unspecified Abdominal pain Qualifiers: Abdominal location: generalized Qualified Code(s): R10.84 - Generalized abdominal pain Instructions Instructions: Acute Pancreatitis, Mmij-wh-Xqrb Nausea and Vomiting, Adult, Lawz-nc-Bmsm Chronic Kidney Disease, Adult, Bwji-ss-Ubbh Hypertension, Ffaa-vg-Sdle Type 1 Diabetes Mellitus, Self Care, Adult, Mddw-hk-[id number] Forms: Excuse From Work or School Precautions for COVID19 Patient Portal Social Distancing
[2020-04-22] MEDS ORDERED: NS 1000 ML 1,000 ML ONE (10:13)
[2020-04-22] MEDS ORDERED: ZOFRAN INJ 4 MG VIAL ONE (10:13)
[2020-04-22] MEDS ORDERED: MORPHINE SULFATE INJ 4 MG ONE ×2 (10:13→10:54)
[2020-04-22 10:27] LABS: BASOPHILS # (AUTO) 0.1 X10^3/uL (0.0-0.1); BASOPHILS % (AUTO) 0.9 % (0.2-1.0); EOSINOPHILS # (AUTO) 0.2 x10^3/uL (0.0-0.2); HEMATOCRIT 40.2 % (36.0-47.0); LYMPHOCYTES # (AUTO) 1.7 X10^3/uL (1.3-2.9); LYMPHOCYTES % (AUTO) 18.6 % (21.0-51.0); MEAN CORPUSCULAR HEMOGLOBIN 28.6 pg (27.0-34.0); MEAN CORPUSCULAR HGB CONC 32.2 g/dL (33.0-35.0); MEAN CORPUSCULAR VOLUME 88.7 fL (80.0-100.0); MEAN PLATELET VOLUME 9.5 fL (7.4-11.0); MONOCYTES # (AUTO) 0.3 x10^3/uL (0.3-0.8); MONOCYTES % (AUTO) 3.2 % (0.0-13.0); NEUTROPHILS # (AUTO) 6.9 x10^3/uL (2.2-4.8); NEUTROPHILS % (AUTO) 75.3 % (42.0-75.0); PLATELET COUNT 318 X10^3/uL (150.0-450.0); RED BLOOD COUNT 4.54 X10^6/uL (3.5-5.4); RED CELL DISTRIBUTION WIDTH 15.2 % (11.6-16.5); WHITE BLOOD COUNT 9.2 X10^3/uL (3.6-10.0)
[2020-04-22 10:38] LABS: ALANINE AMINOTRANSFERASE 20 Units/L (12-78); ALBUMIN 4.1 g/dL (3.4-5.0); ALKALINE PHOSPHATASE 156 Units/L (46-116); AMYLASE 131 Units/L (25-115); ASPARTATE AMINO TRANSFERASE 20 Units/L (15-37); BLOOD UREA NITROGEN 22 mg/dL (7-18); CALCIUM 10.2 mg/dL (8.5-10.1); CARBON DIOXIDE 27.1 mmol/L (21-32); CHLORIDE 104 mmol/L (98-107); COR NA(FOR HYPERGLY) 147 mmol/L (136-145); CREATININE 1.89 mg/dL (0.55-1.02); LIPASE 568 Units/L (73-393); SODIUM 144 mmol/L (136-145); eGFR NON BLACK RACES 32 (>60)
[2020-04-22] MEDS ORDERED: APRESOLINE INJ 20 MG VIAL ONE (11:40)
--- NOTE | 2020-04-22 11:45 | CT ---
HISTORYabdominal pain, n/vSTUDYABDOMEN/PELVIS W/O [id number] axial images of the abdomen and pelvis were obtained from the lung bases to the pubic symphysis without the administration of IV contrast. Dose reduction techniques including Automated Exposure Control (AEC) and adjustment of mA and kV were utilized.FINDINGSThe lung bases are clear. The liver and spleen are normal size and density. The gallbladder has been removed with clips in the gallbladder fossa. The bile ducts and pancreas are normal. The adrenals are normal. The kidneys are normal size with no hydronephrosis, renal stone, or mass. The ureters normal caliber. The bladder is unremarkable. The uterus is small in size with no adnexal mass or free fluid. The appendix is unremarkable with no pericecal inflammation. There is no adenopathy or ascites. The mesentery is unremarkable. The bones are intact with fusion of the L4-5 disc space which is unchanged. There are diverticula scattered throughout the right colon with no pericolonic inflammation.IMPRESSIONStatus post cholecystectomy with no acute abnormality seen.No hydronephrosis or renal stones and no urinary obstruction.Scattered diverticula along the right colon with no pericolonic inflammation.No pelvic mass or active inflammation seen.Electronically signed by: KOREY CHOPRA (Apr 22, 2020 11:43:15)
[2020-04-22] MEDS ORDERED: DILAUDID INJ IVP ONE (11:52)
[2020-04-22] MEDS ORDERED: PROTONIX INJ 40 MG VIAL IVP ONE (11:53)
[2020-04-22] MEDS ORDERED: DILAUDID INJ ONE ×2 (11:55→14:39)
[2020-04-22] MEDS ORDERED: PROTONIX INJ 40 MG VIAL ONE (12:00)
[2020-04-22 13:10] LABS: APPEARANCE,URINE HAZY (CLEAR); COLOR,URINE YELLOW (YELLOW); GLUCOSE, URINE 2+ (NEGATIVE); PROTEIN,URINE 4+ (NEGATIVE)
[2020-04-22 13:11] LABS: BACTERIA,URINE TRACE /HPF (NEGATIVE); BILIRUBIN,URINE NEGATIVE (NEGATIVE); BLOOD/HEMOGLOBIN,URINE 3+ (NEGATIVE); KETONES,URINE NEGATIVE (NEGATIVE); LEUKOCYTE ESTERASE ,URINE NEGATIVE (NEGATIVE); MUCUS,URINE FEW /HPF (NEGATIVE); NITRITES,URINE NEGATIVE (NEGATIVE); SQUAMOUS EPITHELIAL CELL,UR FEW /HPF (NEGATIVE); UROBILINOGEN,URINE NORMAL (NORMAL)
[2020-04-22] MEDS ORDERED: ZOFRAN INJ 4 MG VIAL IVP PRN (14:36)
[2020-04-22] MEDS ORDERED: NS 1000 ML 1,000 ML IV SCH (14:36)
[2020-04-22] MEDS: DILAUDID INJ IVP PRN ×2 (14:46→23:01)
[2020-04-23] MEDS: DILAUDID INJ IVP PRN ×2 (03:01→07:40)
[2020-04-23 06:29] LABS: BASOPHILS # (AUTO) 0.1 X10^3/uL (0.0-0.1); BASOPHILS % (AUTO) 1.1 % (0.2-1.0); EOSINOPHILS # (AUTO) 0.4 x10^3/uL (0.0-0.2); EOSINOPHILS % (AUTO) 3.1 % (0.9-2.9); HEMATOCRIT 32.1 % (36.0-47.0); HEMOGLOBIN 10.3 g/dL (12.0-16.0); LYMPHOCYTES # (AUTO) 3.7 X10^3/uL (1.3-2.9); MEAN CORPUSCULAR HEMOGLOBIN 28.4 pg (27.0-34.0); MEAN CORPUSCULAR HGB CONC 32.1 g/dL (33.0-35.0); MEAN CORPUSCULAR VOLUME 88.3 fL (80.0-100.0); MEAN PLATELET VOLUME 9.2 fL (7.4-11.0); MONOCYTES # (AUTO) 1.1 x10^3/uL (0.3-0.8); NEUTROPHILS # (AUTO) 6.6 x10^3/uL (2.2-4.8); NEUTROPHILS % (AUTO) 55.8 % (42.0-75.0); PLATELET COUNT 248 X10^3/uL (150.0-450.0); RED BLOOD COUNT 3.63 X10^6/uL (3.5-5.4); RED CELL DISTRIBUTION WIDTH 15.1 % (11.6-16.5); WHITE BLOOD COUNT 11.8 X10^3/uL (3.6-10.0)
[2020-04-23 06:47] LABS: ALANINE AMINOTRANSFERASE 17 Units/L (12-78); ALBUMIN 3.5 g/dL (3.4-5.0); ALKALINE PHOSPHATASE 120 Units/L (46-116); AMYLASE 80 Units/L (25-115); ASPARTATE AMINO TRANSFERASE 24 Units/L (15-37); BLOOD UREA NITROGEN 19 mg/dL (7-18); CALCIUM 9.2 mg/dL (8.5-10.1); CARBON DIOXIDE 26.2 mmol/L (21-32); CHLORIDE 104 mmol/L (98-107); CREATININE 1.58 mg/dL (0.55-1.02); LIPASE 259 Units/L (73-393); SODIUM 141 mmol/L (136-145); TOTAL PROTEIN 7.4 g/dL (6.4-8.2); eGFR NON BLACK RACES 40 (>60)
[2020-04-23] MEDS ORDERED: PROTONIX TAB 40 MG PO SCH (09:00)
[2020-04-23 13:16] VITALS: BP 176/88
--- NOTE | 2020-05-13 22:16 | DR.CARTERS ---
Short Stay Summary - Admission Date Date of Admission: 04/22/20 - Discharge Date Discharge Date: 04/23/20 - Admission Diagnoses (1) Acute pancreatitis Status: Acute (2) Diabetic gastroparesis Status: Acute (3) Nausea & vomiting Status: Acute (4) Abdominal pain Status: Acute - Hospital Course Hospital Course: IS A 34 YEAR OLD PATIENT OF . SHE PRESENTED TO THE ER WITH COMPLAINTS OF ABDOMINAL PAIN, NAUSEA, VOMITING, AND WEAKNESS. SYMPTOMS STARTED EARLIER IN THE DAY. PAIN IS DESCRIBED SHARP AND CRAMPING. PAIN RADIATES TO THE BACK. SHE DENIED DIARRHEA, DYSURIA, OR FEVER. HER PMH INCLUDES HTN, DM II, CAD, DYSLIPIDEMIA, GERD, PUD, RENAL DISEASE, GASTROPARESIS, PANCREATITIS, AND CHOLECYSTECTOMY. ON ARRIVAL TO THE HOSPITAL, VITALS WERE 98.6-88-22-99%-206/114. LABS WERE OBTAINED. ABNORMAL LAB VALUES INCLUDED THE FOLLOWING: BUN 22, CREATININE 1.89, GLUCOSE 236, CALCIUM 10.2, ALK PHOS 156, TOTAL PROTEIN 9.0, GLOBULIN 4.9, AMYLASE 131, LIPASE 568. A URINALYSIS WAS OBTAINED AND REVEALED: WBC 5-10, RBC 0-2, MUCUS FEW, BACTERIA TRACE, LEUKOCYTES NEGATIVE, OCCULT BLOOD 3+, GLUCOSE 2+, PROTEIN 4+. COVID NEGATIVE. AN ABDOMEN/PELVIS CT WITHOUT CONTRAST WAS OBTAINED AND REVEALED: Status post cholecystectomy with no acute abnormality seen. No hydronephrosis or renal stones and no urinary obstruction. Scattered diverticula along the right colon with no pericolonic inflammation. No pelvic mass or active inflammation seen. IN THE ER, SHE WAS GIVEN A NORMAL SALINE BOLUS, ZOFRAN 4MG IV X 1, MORPHINE 4MG IV X 1, DILAUDID 2MG IV X 1, PROTONIX 40MG IV X 1. SHE WAS ADMITTED TO THE HOSPITAL FOR FURTHER EVALUATION AND TREATMENT OF ACUTE PANCREATITIS AND DIABETIC GASTROPARESIS. SHE WAS STARTED ON NS AT 100 ML/HR, ZOFRAN 4MG IV Q6H PRN PAIN, DILAUDID 1MG IV Q4H PRN, PROTONIX 40MG PO DAILY. OTHERWISE, WE PLAN TO FOLLOW UP WITH AM LABS AND CONTINUE TO MONITOR. ON THE MORNING FOLLOWING ADMISSION, PATIENT IS ALERT, LYING IN BED ON MORNING ROUNDS. SHE CONTINUES WITH MILD ABDOMINAL PAIN, BUT REPORTS IMPROVEMENT SINCE ADMISSION. SHE REPORTS DECREASE IN NAUSEA SINCE ADMISSION WELL. ON EXAMINATION, HEART IS REGULAR IN RATE AND RHYTHM. BILATERAL LUNGS ARE NOTED WITH DIMINISHED LUNG SOUNDS THROUGHOUT. ABDOMEN IS ROUND, SOFT, AND NOTED WITH MILD DIFFUSE TENDERNESS. NORMAL BOWEL SOUNDS NOTED IN ALL QUADRANTS. HER VITALS THIS MORNING ARE: 98.1-93-20-99%RA-194/98. LABS WERE OBTAINED. ABNORMAL LAB VALUES INCLUDE THE FOLLOWING: WBC 11.8, HGB 10.3, HCT 32.1, BUN 19, CREATININE 1.58, ALK PHOS 120. WE PLANNED FOR DISCHARGE. INSTRUCTIONS FOR MEDICATIONS AND FOLLOW UP WERE DISCUSSED WITH PATIENT. SHE VERBALIZED UNDERSTANDING OF ORDERS. PATIENT DISCHARGED HOME IN STABLE CONDITION WITH INSTRUCTIONS TO RESUME HER CURRENT HOME MEDICATIONS AND TO FOLLOW UP WITH HER PRIMARY CARE PHYSICIAN IN ONE WEEK. PATIENT IN IMPROVED CONDITION UPON DISCHARGE. - Discharge Medications Discharge Medications: Home Medication List clopidogrel [Plavix] 75 mg PO DAILY 04/22/20 [History] ondansetron HCl [Zofran] 4 mg PO QID PRN #30 tab 04/23/20 [Rx] promethazine [Promethegan] 25 mg DE Q6H PRN #30 ea 04/23/20 [Rx] Prescriptions: ondansetron HCl [Zofran] Salazar Sherwood promethazine [Promethegan] Salazar Sherwood Risks, benefits, and alternatives of opioids discussed: Yes - Discharge Plan Disposition: 01 HOME, SELF-CARE Condition: Stable Prescriptions: ondansetron HCl [Zofran] 4 mg PO QID PRN #30 tab PRN Reason: Nausea promethazine [Promethegan] 25 mg DE Q6H PRN #30 ea PRN Reason: Nausea - Follow up/Referrals Follow up/Referrals: KOREY RUDD [Primary Care Provider] - 04/30/20 10:00 am - Instructions Instructions: Acute Pancreatitis, Sfxb-tm-Iodh, Nausea and Vomiting, Adult, Hiye-sj-Teww, Chronic Kidney Disease, Adult, Zesx-fs-Sjgu, Hypertension, Fyiv-vc-Dhhv, Type 1 Diabetes Mellitus, Self Care, Adult, Yqxl-yy-Cjgu Additional Instructions: DIET TOLERATED. ACTIVITY TOLERATED. Forms: Excuse From Work or School, Precautions for COVID19, Patient Portal, Social Distancing
== END 2020-04-23 12:25 | disposition home or self-care (01) ==
LOC: ER 09:37 → MED/SURG 09:37
PROVIDERS: ADMIT Family Medicine; ATTEND Internal Medicine
DX: R11.2 Nausea with vomiting, unspecified; E78.2 Mixed hyperlipidemia; K21.9 Gastro-esophageal reflux disease without esophagitis; K31.84 Gastroparesis; F41.8 Other specified anxiety disorders; R10.84 Generalized abdominal pain; I10 Essential (primary) hypertension; K85.90 Acute pancreatitis without necrosis or infection, unspecified; I25.10 Atherosclerotic heart disease of native coronary artery without angina pectoris; Z20.828 Contact with and (suspected) exposure to other viral communicable diseases; E11.43 Type 2 diabetes mellitus with diabetic autonomic (poly)neuropathy; E11.65 Type 2 diabetes mellitus with hyperglycemia

== ENCOUNTER 2020-07-17 12:10 | Inpatient (IN) ==
[2020-07-17] MEDS ORDERED: PHENERGAN INJ 25 MG IM ONE ×2 (13:20→13:29)
[2020-07-17] MEDS ORDERED: NS 1000 ML 1,000 ML IV ONE (13:20)
[2020-07-17] MEDS ORDERED: DILAUDID INJ IVP ONE (13:21)
[2020-07-17] MEDS ORDERED: NS 1000 ML 1,000 ML ONE (13:29)
[2020-07-17] MEDS ORDERED: DILAUDID INJ ONE (13:29)
--- NOTE | 2020-07-17 13:38 | ED.ABDFE ---
HPI Time Seen Time Seen by Provider: 07/17/20 13:19 PCP Primary Care Physician: Molina HPI Comment HPI Comment: PATIENT IS 34YR OLD FEMALE IN ER WITH ABDOMINAL PAIN, NAUSEA, VOMITING TIMES ONE DAY. PATIENT TOOK NAUSEA AND PAIN MED BEFORE COMING TO ER. STILL HAVING 10/10 CRAMPING PAIN THAT IS DIFFUSED RADIATING TO THE BACK. NO FEVER. DYSURIA OR FEVER. PATIENT HAVE ELEVATED BP, KOWN HYPERTENSIVE THAT DID NOT TAKE HER MEDICATION THIS AM. DENIES CONTACT WITH COVID 19 VIRUS PATIENT OR PATIENT WITH SIMILAR SYMPTOMS. Complaint Doctors Chief Complaint Comments: ABDOMINAL PAIN, NAUSEA AND VOMITING TIMES ONE DAY. Chief Complaint:: Pt c/o abd pain, n/v since yesterday. Pt took pain and nausea meds this am but did not take bp meds. COVID-19 Coronavirus risk:travel/contact w/high risk person: No Has patient experienced Coronavirus symptoms: No Reviewed Nurses Notes Review: Yes Source History Provided: Patient Mode of arrival Mode of Arrival: Wheelchair Timing Onset of Chief Complaint: 07/16/20 Came on: Suddenly Duration Since Onset: Constant Duration: Days Location Location: Diffuse Severity Severity: Moderate Quality Quality: Cramping Context History of: None Modifying factors Worsening Factors: Nothing Improving Factors: Nothing Associated signs and symptoms Associated Signs and Symptoms: Nausea and Vomiting PMH PMH Past Medical History: Yes Past Medical History: Anxiety, Arthritis, Coronary Artery Disease, Depression, Diabetes, Dyslipidemia, GERD, Hypertension, PUD and Renal Disease Past Surgical History: Yes Surgical History: Cholecystectomy, Hysterectomy and Other Past Surgical History Comment: left bka Family History History of Family Medical Conditions: Yes Family Medical History: Diabetes Mellitus and Coronary Artery Disease Social History Does patient currently use any type of tobacco product: No Have you used tobacco products in the last 12 months: No Type of Tobacco Use: None Does any household member use tobacco: No Alcohol Use: None Do you use any recreational Drugs:: No Lives With: Family Lives Where: Home Travel Risk Coronavirus risk:travel/contact w/high risk person: No Has patient experienced Coronavirus symptoms: No Infectious screening In the last 2 months have you had wt loss of >10#?: NO Have you had fever, night sweats or hemotysis?: No Have you traveled outside the country in the last 6 months?: No Isolation: Standard ROS Review of Systems Constitutional: No Symptoms Reported, See HPI, Weakness and Fatigue; negative Fever Eyes: No Symptoms Reported and See HPI ENTM: No Symptoms Reported and See HPI; negative Nose Discharge and Nose Congestion Respiratoy: No Symptoms Reported, See HPI and Short of Breath (ONEXERTION.); negative Moist Cough and Wheezing Cardiovascular: No Symptoms Reported and See HPI; negative Chest Pain and Palpitations Gastrointestinal/Abdominal: See HPI, Abdominal Pain, Nausea and Vomiting; negative Diarrhea Genitourinary: No Symptoms Reported and See HPI; negative Dysuria, Frequency and Hematuria Neurological: See HPI, Headache and Weakness; negative Dizziness Musculoskeletal: No Symptoms Reported and See HPI; negative Back Pain and Muscle Pain Integumentary: No Symptoms Reported and See HPI; negative Change in Color, Rash and Juandice Hematologic/Lymphatic: No Symptoms Reported, See HPI and Easy Bruising; negative Swollen Glands Endocrine: No Symptoms Reported and See HPI; negative Increased Thirst and Increased Urine Psychiatric: No Symptoms Reported and See HPI All Other Systems: Reviewed and Negative PE Vital Signs Vitals: Temperature 98.3 F Pulse Rate 119 Respiratory Rate 18 Blood Pressure [Right Arm] 195/102 Blood Pressure 229/113 O2 Sat by Pulse Oximetry 20 General Limitations: No Limitations General Appearance: Alert and In No Apparent Distress Head Head Exam: Normal Inspection, Atraumatic and Normocephalic Eyes Eye exam: Normal Appearance and PERRL; negative Scleral Icterus and Conjunctival Injection ENT ENT Exam: Normal Exam; negative Normal Oropharynx, Normal External Ear Exam and TM's Normal Bilaterally Neck Neck Exam: Normal Inspection and Trachea Midline; negative Tenderness and Lymphadenopathy Chest Chest Inspection: Normal Inspection and Symmetric Chest Wall Rise; negative Tenderness Respiratory Respiratory Exam: Normal Lung Sounds Bilat; negative Accessory Muscle Use, Chest Wall Tenderness and Respiratory Distress Respiratory Exam: Bilateral: Clear to Auscultation Cardiovascular Cardiovascular Exam: Regular Rate, Normal Rhythm and Normal Heart Sounds; negative Systolic Murmur and Diastolic Murmur Abdominal Exam Abdominal Exam: Normal Bowel Sounds, Soft and Tenderness Abdominal Tenderness: Diffuse and Moderate Rectal Rectal Exam: Deferred Back Back Exam: Normal Inspection; negative (R) CVA Tenderness and (L) CVA Tenderness Extremeties Extremities Exam: Normal Inspection and Tenderness (LEFT BKA.) External Exam: Female: Deferred : Speculum Exam (Female): Deferred : Bimanual Exam (female): Deferred Neurologic Neurological Exam: Alert and Oriented X3 Psychiatric Psychiatric Exam: Normal Affect and Normal Mood Skin Skin Exam: Dry MDM Differential Diagnosis Differential Diagnosis- Considerations may include:: Bowel Obstruction, Constipation, Diverticular disease, Gastritus/PUD, Gastroenteritis, Inflammatory BD, Pancreatitis, Urinary tract infection and Urolithiasis COURSE Treatment Treatment: SEE ORDERS. NORMAL SALINE 1L IV BOLUS, DILAUDID 2MG IV BOLUS. Consultation Consultation Comments: DISCUSSED PATIENT WITH DR. RUDD AND HE WILL ADMIT PATIENT. Education/Counseling Education/Counseling: Patient Educated On: Diagnosis ROR Labs Reviewed Laboratory Results Reviewed?: Yes Result Diagrams: 07/22/20 07:10 07/22/20 07:10 Laboratory: WBC 12.2 X10^3/uL (3.6-10.0) H 07/17/20 14:10 RBC 4.09 X10^6/uL (3.5-5.4) 07/17/20 14:10 Hgb 11.6 g/dL (12.0-16.0) L 07/17/20 14:10 Hct 35.2 % (36.0-47.0) L 07/17/20 14:10 MCV 86.1 fL (80.0-100.0) 07/17/20 14:10 MCH 28.5 pg (27.0-34.0) 07/17/20 14:10 MCHC 33.1 g/dL (33.0-35.0) 07/17/20 14:10 RDW 15.4 % (11.6-16.5) 07/17/20 14:10 Plt Count 328 X10^3/uL (150.0-450.0) 07/17/20 14:10 MPV 9.1 fL (7.4-11.0) 07/17/20 14:10 Neut % (Auto) 81.0 % (42.0-75.0) H 07/17/20 14:10 Lymph % (Auto) 14.7 % (21.0-51.0) L 07/17/20 14:10 Kaufman % (Auto) 3.3 % (0.0-13.0) 07/17/20 14:10 Eos % (Auto) 0.1 % (0.9-2.9) L 07/17/20 14:10 Baso % (Auto) 0.9 % (0.2-1.0) 07/17/20 14:10 Neut # (Auto) 9.9 x10^3/uL (2.2-4.8) H 07/17/20 14:10 Lymph # (Auto) 1.8 X10^3/uL (1.3-2.9) 07/17/20 14:10 Kaufman # (Auto) 0.4 x10^3/uL (0.3-0.8) 07/17/20 14:10 Eos # (Auto) 0.0 x10^3/uL (0.0-0.2) 07/17/20 14:10 Baso # (Auto) 0.1 X10^3/uL (0.0-0.1) 07/17/20 14:10 Absolute Nucleated RBC 0.0 /100WBC 07/17/20 14:10 Sodium 140 mmol/L (136-145) 07/17/20 14:10 Sodium Cancelled 07/17/20 14:10 Corrected Sodium 142 mmol/L (136-145) 07/17/20 14:10 Corrected Sodium Cancelled 07/17/20 14:10 Potassium 3.4 mmol/L (3.5-5.1) L 07/17/20 14:10 Potassium Cancelled 07/17/20 14:10 Chloride 98 mmol/L (98-107) 07/17/20 14:10 Chloride Cancelled 07/17/20 14:10 Carbon Dioxide 31.0 mmol/L (21-32) 07/17/20 14:10 Carbon Dioxide Cancelled 07/17/20 14:10 BUN 57 mg/dL (7-18) H 07/17/20 14:10 BUN Cancelled 07/17/20 14:10 Creatinine 5.87 mg/dL (0.55-1.02) H 07/17/20 14:10 Creatinine Cancelled 07/17/20 14:10 Est GFR (MDRD) Af Amer 11 (>60) L 07/17/20 14:10 Est GFR (MDRD) Af Amer Cancelled 07/17/20 14:10 Est GFR (MDRD) Non-Af 9 (>60) L 07/17/20 14:10 Est GFR (MDRD) Non-Af Cancelled 07/17/20 14:10 Glucose 178 mg/dL (65-99) H 07/17/20 14:10 Glucose Cancelled 07/17/20 14:10 Calcium 9.6 mg/dL (8.5-10.1) 07/17/20 14:10 Calcium Cancelled 07/17/20 14:10 Corrected Calcium Cancelled 07/17/20 14:10 Corrected Calcium TNP 07/17/20 14:10 Ferritin 68 ng/mL (8-252) 07/17/20 14:10 Total Bilirubin 0.30 mg/dL (0.2-1.0) 07/17/20 14:10 Total Bilirubin Cancelled 07/17/20 14:10 AST 14 Units/L (15-37) L 07/17/20 14:10 AST Cancelled 07/17/20 14:10 ALT 22 Units/L (12-78) 07/17/20 14:10 ALT Cancelled 07/17/20 14:10 Alkaline Phosphatase 135 Units/L (46-116) H 07/17/20 14:10 Alkaline Phosphatase Cancelled 07/17/20 14:10 C-Reactive Protein 6.60 mg/L (0-3.0) H 07/17/20 14:10 Total Protein 8.9 g/dL (6.4-8.2) H 07/17/20 14:10 Total Protein Cancelled 07/17/20 14:10 Albumin 3.9 g/dL (3.4-5.0) 07/17/20 14:10 Albumin Cancelled 07/17/20 14:10 Globulin 5.0 g/dL (2.5-4.5) H 07/17/20 14:10 Globulin Cancelled 07/17/20 14:10 Albumin/Globulin Ratio 0.8 Ratio (1.1-2.1) L 07/17/20 14:10 Albumin/Globulin Ratio Cancelled 07/17/20 14:10 Amylase 146 Units/L (25-115) H 07/17/20 14:10 Amylase Cancelled 07/17/20 14:10 Lipase 468 Units/L (73-393) H 07/17/20 14:10 Lipase Cancelled 07/17/20 14:10 Acetone, Semi-Quant Negative (NEGATIVE) 07/17/20 14:10 SARS CoV-2 RNA Rapid JONATHAN Positive (NEGATIVE) A 07/17/20 15:12 XRAY XRAY Interpreted by: Radiologist (REPORT NOTED AND DISCUSSED WITH PATIENT.) and Self Opioid Opioid Risk Tool Age (Duc box if 16-45): No History of Preadolescent Sexual Abuse: No Total: 0 Total Score Risk Category: Low Risk Copyright: Wilfrid ROCKWELL predicting aberrant behaviors Diagnosis Discharge Problem: Acute dehydration, COVID-19 virus detected Acute pancreatitis Qualifiers: Pancreatitis type: unspecified pancreatitis type Acute pancreatitis complication: unspecified Qualified Code(s): K85.90 - Acute pancreatitis without necrosis or infection, unspecified Acute renal failure (ARF) Qualifiers: Acute renal failure type: unspecified Qualified Code(s): N17.9 - Acute kidney failure, unspecified Instructions Instructions: Dehydration, Adult, [id number] Acute Pancreatitis, [id number] Chronic Kidney Disease, Adult, Apix-[id number] Forms: Excuse From Work or School Precautions for COVID19 Patient Portal Social Distancing
[2020-07-17 14:17] LABS: BASOPHILS # (AUTO) 0.1 X10^3/uL (0.0-0.1); BASOPHILS % (AUTO) 0.9 % (0.2-1.0); EOSINOPHILS % (AUTO) 0.1 % (0.9-2.9); HEMATOCRIT 35.2 % (36.0-47.0); HEMOGLOBIN 11.6 g/dL (12.0-16.0); LYMPHOCYTES # (AUTO) 1.8 X10^3/uL (1.3-2.9); LYMPHOCYTES % (AUTO) 14.7 % (21.0-51.0); MEAN CORPUSCULAR HEMOGLOBIN 28.5 pg (27.0-34.0); MEAN CORPUSCULAR HGB CONC 33.1 g/dL (33.0-35.0); MEAN CORPUSCULAR VOLUME 86.1 fL (80.0-100.0); MEAN PLATELET VOLUME 9.1 fL (7.4-11.0); MONOCYTES # (AUTO) 0.4 x10^3/uL (0.3-0.8); MONOCYTES % (AUTO) 3.3 % (0.0-13.0); NEUTROPHILS # (AUTO) 9.9 x10^3/uL (2.2-4.8); PLATELET COUNT 328 X10^3/uL (150.0-450.0); RED BLOOD COUNT 4.09 X10^6/uL (3.5-5.4); RED CELL DISTRIBUTION WIDTH 15.4 % (11.6-16.5); WHITE BLOOD COUNT 12.2 X10^3/uL (3.6-10.0)
[2020-07-17 14:41] LABS: ALANINE AMINOTRANSFERASE 22 Units/L (12-78); ALBUMIN 3.9 g/dL (3.4-5.0); ALKALINE PHOSPHATASE 135 Units/L (46-116); AMYLASE 146 Units/L (25-115); ASPARTATE AMINO TRANSFERASE 14 Units/L (15-37); BLOOD UREA NITROGEN 57 mg/dL (7-18); CALCIUM 9.6 mg/dL (8.5-10.1); CHLORIDE 98 mmol/L (98-107); COR NA(FOR HYPERGLY) 142 mmol/L (136-145); CREATININE 5.87 mg/dL (0.55-1.02); LIPASE 468 Units/L (73-393); SODIUM 140 mmol/L (136-145); TOTAL PROTEIN 8.9 g/dL (6.4-8.2); eGFR NON BLACK RACES 9 (>60)
--- NOTE | 2020-07-17 15:40 | CT ---
HISTORYPt c/o abd pain, n/v since yesterday.STUDYABDOMEN/PELVIS W/O CONCOMPARISONJanuary 2020TECHNIQUENon-contrasted axial CT images of the abdomen and pelvis were obtained and reformatted into coronal and sagittal planes for further evaluation.Radiation dose: 922.50 mGy-cm total DLPFINDINGSLung bases are clear.Coronary artery calcifications.Stomach appears normal.Solid visceral organs of the upper abdomen are unremarkable.Status post cholecystectomy.Atherosclerotic changes to the abdominal aorta and iliac vessels without aneurysm.Unremarkable appearance of the kidneys.No hydronephrosis, hydroureter or ureteral calculus.Unremarkable appearance of the urinary bladder.Few scattered colonic diverticula without diverticulitis.Otherwise, unremarkable appearance of the large and small bowel.Reproductive structures are unremarkable.No evidence of acute appendicitis.No pneumoperitoneum.No significant fluid collection.No adenopathy.No acute osseous abnormality.Fusion of the L4 and L5 vertebral bodies.IMPRESSIONNo acute intra-abdominal abnormality detected.Electronically signed by: Surinder Hayes (Jul 17, 2020 15:38:27)
[2020-07-17] MEDS ORDERED: PEPCID 20 MG IV PREMIX* 20 MG/50 ML BAG IV PRN (17:24)
[2020-07-17] MEDS: ZOFRAN INJ 4 MG VIAL IVP PRN ×2 (17:28→23:05)
[2020-07-17] MEDS: DILAUDID INJ IVP PRN ×2 (17:28→21:25)
[2020-07-17 17:56] LABS: ABG BASE EXCESS 8.3 mmol/L (-2.0-2.0)
[2020-07-17 17:57] LABS: ABG HCO3 32.8 mmol/L (22-26)
[2020-07-17] MEDS: NS 1000 ML 1,000 ML IV SCH (18:26)
[2020-07-17] MEDS: COREG TAB 3.125 MG PO SCH (20:30)
[2020-07-17] MEDS: XANAX PO PRN (20:30)
[2020-07-17 23:08] LABS: BILIRUBIN,URINE NEGATIVE (NEGATIVE); BLOOD/HEMOGLOBIN,URINE 2+ (NEGATIVE); GLUCOSE, URINE NEGATIVE (NEGATIVE); KETONES,URINE NEGATIVE (NEGATIVE); LEUKOCYTE ESTERASE ,URINE 1+ (NEGATIVE); NITRITES,URINE NEGATIVE (NEGATIVE); PROTEIN,URINE 3+ (NEGATIVE); UROBILINOGEN,URINE NORMAL (NORMAL)
[2020-07-17 23:18] LABS: APPEARANCE,URINE CLEAR (CLEAR); COLOR,URINE YELLOW (YELLOW)
[2020-07-17 23:19] LABS: BACTERIA,URINE NEGATIVE /HPF (NEGATIVE); RBC,URINE 0-2 /HPF (0-3); SQUAMOUS EPITHELIAL CELL,UR RARE /HPF (NEGATIVE)
[2020-07-18] MEDS: DILAUDID INJ IVP PRN ×6 (01:30→23:24)
[2020-07-18] MEDS: NS 1000 ML 1,000 ML IV SCH ×2 (04:55→15:30)
[2020-07-18] MEDS: ZOFRAN INJ 4 MG VIAL IVP PRN (05:37)
[2020-07-18 05:47] LABS: BASOPHILS # (AUTO) 0.1 X10^3/uL (0.0-0.1); BASOPHILS % (AUTO) 0.6 % (0.2-1.0); EOSINOPHILS # (AUTO) 0.2 x10^3/uL (0.0-0.2); EOSINOPHILS % (AUTO) 1.5 % (0.9-2.9); HEMATOCRIT 32.1 % (36.0-47.0); HEMOGLOBIN 10.2 g/dL (12.0-16.0); LYMPHOCYTES # (AUTO) 3.4 X10^3/uL (1.3-2.9); LYMPHOCYTES % (AUTO) 26.6 % (21.0-51.0); MEAN CORPUSCULAR HEMOGLOBIN 28.2 pg (27.0-34.0); MEAN CORPUSCULAR HGB CONC 31.9 g/dL (33.0-35.0); MEAN CORPUSCULAR VOLUME 88.5 fL (80.0-100.0); MEAN PLATELET VOLUME 9.9 fL (7.4-11.0); MONOCYTES # (AUTO) 0.9 x10^3/uL (0.3-0.8); MONOCYTES % (AUTO) 7.1 % (0.0-13.0); NEUTROPHILS # (AUTO) 8.2 x10^3/uL (2.2-4.8); NEUTROPHILS % (AUTO) 64.2 % (42.0-75.0); PLATELET COUNT 245 X10^3/uL (150.0-450.0); RED BLOOD COUNT 3.62 X10^6/uL (3.5-5.4); RED CELL DISTRIBUTION WIDTH 14.9 % (11.6-16.5); WHITE BLOOD COUNT 12.8 X10^3/uL (3.6-10.0)
[2020-07-18 06:02] LABS: ALANINE AMINOTRANSFERASE 19 Units/L (12-78); ALBUMIN 3.6 g/dL (3.4-5.0); ALKALINE PHOSPHATASE 118 Units/L (46-116); ASPARTATE AMINO TRANSFERASE 17 Units/L (15-37); BLOOD UREA NITROGEN 48 mg/dL (7-18); CALCIUM 8.8 mg/dL (8.5-10.1); CARBON DIOXIDE 30.3 mmol/L (21-32); CHLORIDE 94 mmol/L (98-107); CREATININE 4.82 mg/dL (0.55-1.02); MAGNESIUM 1.7 mg/dL (1.7-2.9); SODIUM 135 mmol/L (136-145); TOTAL PROTEIN 7.9 g/dL (6.4-8.2); eGFR NON BLACK RACES 11 (>60)
--- NOTE | 2020-07-18 06:04 | RAD ---
HISTORYFollow-up COVID-19STUDYChest AP [id number]/05/2020FINDINGSThere is a port present on the left. The heart is within normal l imits in size. The funmi are normal. The lung fowler are clear. No pleural effusions are identified. B roberto thorax is unremarkable.IMPRESSIONNo significant abnormality identifiedElectronically signed by: Kimi MCLEOD (Jul 18, 2020 06:02:16)
[2020-07-18 09:03] VITALS: BMI 30.1
[2020-07-18] MEDS: COREG TAB 3.125 MG PO SCH ×2 (09:52→22:02)
[2020-07-18] MEDS: MICRO K EXTEN CAP 10 MEQ PO SCH ×2 (09:52→22:02)
[2020-07-18] MEDS ORDERED: HumuLIN R SUBCUT PRN (11:36)
[2020-07-18] MEDS: BENADRYL INJ 50 MG VIAL IVP PRN (16:42)
--- NOTE | 2020-07-18 17:51 | DR.H&P ---
H&P - History & Physical for Day of: H&P Date: 07/17/20 - Chief Complaint Chief Complaint: dehydration, nv, abdominal pain - History of Present Illness History of Present Illness: PT IS 34 BF ER ADMISSION WITH CO N/V WITH ABDOMINAL PAIN, UNABLE TO TAKE PO BP MEDICATION. PT REPORTS SHE HAD BEEN SICK FOR OVER AND MONTH. PT HAS BEEN IN HOSPITAL IN [place] 4 WEEKS AGO. PT DENIES ANY FEVER OR CCC, PT CO PANCREATITIS. - Past Medical History Past Medical History: Coronary Artery Disease, Hypertension, Dyslipidemia, Diabetes, Renal Disease, Depression, Anxiety, PUD, GERD, Arthritis Additional Medical History: MORBID OBESITY, Pancreatitis, gastroparesis, osteomyelitis - Past Surgical History Surgical History: Cholecystectomy, Hysterectomy, Other Additional Surgical History: BKA - Family History Family Medical History: Diabetes Mellitus, Coronary Artery Disease - Social History Does patient currently use any type of tobacco product: No Have you used tobacco products in the last 12 months: No Type of Tobacco Use: None Does any household member use tobacco: No Alcohol Use: None Drug Use: None - Medications Home Medications: Penicillins Allergy (Verified 04/22/20 09:55) CONTINUE taking the following medications alprazolam 0.25 mg PO TID PRN 07/18/20 [History] dicyclomine 20 mg PO BID 07/18/20 [History] lisinopril 10 mg PO DAILY 07/18/20 [History] metoclopramide HCl 10 mg PO ACHS 07/18/20 [History] - Review of Systems Constitutional: Weakness Eyes: No Symptoms Reported ENT: No Symptoms Reported Respiratory: No Symptoms Reported Cardiovascular: No Symptoms Reported Gastrointestinal: Nausea, Vomiting, Abdominal Pain Genitourinary: No Symptoms Reported Musculoskeletal: Back Pain Skin: No Symptoms Reported Neurological: Weakness - Physical Exam Vital Signs: Temperature 98.0 F Pulse Rate [Left Radial] 87 Pulse Rate 119 Respiratory Rate 22 Blood Pressure [Left Arm] 184/81 Blood Pressure [Right Arm] 139/74 Blood Pressure 229/113 O2 Sat by Pulse Oximetry 100 Oriented: Normal Eyes: Blurred Vision (CHRONIC) Ear: Normal Nose: Normal Throat: Normal Respiratory: RLL Diminished, LLL Diminished Cardiovascular: Normal : Normal Auscultation: Bowel Sounds: Normal Palpation: Spleen Enlarged Tenderness: LUQ, Epigastric Skin: Decreased Turgur Musculoskeletal: Back:Lumbar, Deformity Psychiatric: Anxiety Affect: Anxious Speech Pattern: Clear, Appropriate - Assessment/Plan (1) Acute pancreatitis Status: Acute Plan: ADMIT, NPO, PAIN AND NAUSEA CONTROL. COVID + WO HYPOXIA, CONTINUE TO MONITOR, ISOLATION UNIT. REVIEW HOME MEDICATION, BP CONTROL. CXR ON ADMISSION, CT ABDPELVIS IN ER ON ADMISSION. BS CONTROL, GENTL EI HYDRATION WITH STRICT I&OS (2) Diabetic gastroparesis Status: Acute (3) Acute dehydration Status: Acute (4) Acute on chronic renal failure Qualifiers: Status: Acute (5) CAD (coronary artery disease) Qualifiers: Status: Chronic (6) Uncontrolled hypertension Status: Chronic (7) Diabetes mellitus Qualifiers: Diabetes mellitus type: type 1 Diabetes mellitus complication status: with kidney complications Diabetes mellitus complication detail: with chronic kidney disease Chronic kidney disease stage: stage 4 (severe) Qualified Code(s): E10.22 - Type 1 diabetes mellitus with diabetic chronic kidney disease; N18.4 - Chronic kidney disease, stage 4 (severe) Status: Chronic (8) Chronic kidney disease (CKD) Qualifiers: Chronic kidney disease stage: stage 3 (moderate) Status: Chronic (9) Essential hypertension Status: Chronic - Allergies Allergies/Adverse Reactions: Allergies Allergy/AdvReac Type Severity Reaction Status Date / Time Penicillins Allergy Verified 04/22/20 09:55
[2020-07-18] MEDS: MAGNESIUM SULFATE 1 GRAM/100 mL PREMIX 1 GM/100 ML BAG IV PRN ×2 (18:11→20:29)
[2020-07-18] MEDS: SNACK - Diabetic Appropriate PO SCH (20:00)
[2020-07-18] MEDS: XANAX PO PRN (23:24)
[2020-07-19] MEDS: BENADRYL INJ 50 MG VIAL IVP PRN ×3 (00:30→19:22)
[2020-07-19] MEDS: NS 1000 ML 1,000 ML IV SCH ×4 (00:42→21:13)
[2020-07-19] MEDS: DILAUDID INJ IVP PRN ×5 (03:28→20:31)
[2020-07-19 06:17] LABS: BASOPHILS # (AUTO) 0.1 X10^3/uL (0.0-0.1); BASOPHILS % (AUTO) 0.6 % (0.2-1.0); EOSINOPHILS # (AUTO) 0.3 x10^3/uL (0.0-0.2); EOSINOPHILS % (AUTO) 3.5 % (0.9-2.9); HEMATOCRIT 27.9 % (36.0-47.0); HEMOGLOBIN 9.3 g/dL (12.0-16.0); LYMPHOCYTES # (AUTO) 2.3 X10^3/uL (1.3-2.9); LYMPHOCYTES % (AUTO) 25.6 % (21.0-51.0); MEAN CORPUSCULAR HGB CONC 33.2 g/dL (33.0-35.0); MEAN CORPUSCULAR VOLUME 87.4 fL (80.0-100.0); MEAN PLATELET VOLUME 9.1 fL (7.4-11.0); MONOCYTES # (AUTO) 0.8 x10^3/uL (0.3-0.8); MONOCYTES % (AUTO) 8.5 % (0.0-13.0); NEUTROPHILS # (AUTO) 5.5 x10^3/uL (2.2-4.8); NEUTROPHILS % (AUTO) 61.8 % (42.0-75.0); PLATELET COUNT 233 X10^3/uL (150.0-450.0); RED BLOOD COUNT 3.19 X10^6/uL (3.5-5.4); RED CELL DISTRIBUTION WIDTH 14.6 % (11.6-16.5); WHITE BLOOD COUNT 8.9 X10^3/uL (3.6-10.0)
[2020-07-19 06:41] LABS: ALANINE AMINOTRANSFERASE 22 Units/L (12-78); ALBUMIN 3.2 g/dL (3.4-5.0); ALKALINE PHOSPHATASE 104 Units/L (46-116); ASPARTATE AMINO TRANSFERASE 18 Units/L (15-37); BLOOD UREA NITROGEN 39 mg/dL (7-18); CARBON DIOXIDE 26.3 mmol/L (21-32); CHLORIDE 101 mmol/L (98-107); COR CA(FOR HYPOALB) 9.6 mg/dL (8.5-10.1); CREATININE 4.06 mg/dL (0.55-1.02); SODIUM 138 mmol/L (136-145); TOTAL PROTEIN 7.2 g/dL (6.4-8.2); eGFR NON BLACK RACES 13 (>60)
[2020-07-19] MEDS: XANAX PO PRN ×2 (07:44→20:33)
[2020-07-19] MEDS: COREG TAB 3.125 MG PO SCH ×2 (08:01→21:13)
[2020-07-19] MEDS: ZOFRAN INJ 4 MG VIAL IVP PRN (11:39)
[2020-07-19] MEDS: PLAVIX PO SCH (14:08)
[2020-07-19] MEDS: ZESTRIL TAB 10 MG PO SCH (14:08)
[2020-07-19] MEDS ORDERED: KENALOG CREAM TOP PRN (17:58)
[2020-07-19] MEDS ORDERED: LOVENOX INJ 40 MG SYR SC SCH (18:00)
[2020-07-19] MEDS: LOVENOX INJ 30 MG SYR SC SCH (19:20)
[2020-07-19] MEDS: SNACK - Diabetic Appropriate PO SCH (20:04)
[2020-07-19] MEDS: APRESOLINE TAB 25 MG PO SCH (20:33)
[2020-07-19] MEDS: LIPITOR TAB 40 MG PO SCH (20:33)
[2020-07-20] MEDS: NS 1000 ML 1,000 ML IV SCH ×4 (00:32→18:09)
[2020-07-20] MEDS: DILAUDID INJ IVP PRN ×6 (00:42→22:00)
[2020-07-20] MEDS: BENADRYL INJ 50 MG VIAL IVP PRN ×2 (04:44→18:00)
[2020-07-20 05:19] LABS: BASOPHILS % (AUTO) 0.4 % (0.2-1.0); EOSINOPHILS # (AUTO) 0.3 x10^3/uL (0.0-0.2); EOSINOPHILS % (AUTO) 3.4 % (0.9-2.9); HEMATOCRIT 27.8 % (36.0-47.0); LYMPHOCYTES # (AUTO) 2.4 X10^3/uL (1.3-2.9); LYMPHOCYTES % (AUTO) 29.1 % (21.0-51.0); MEAN CORPUSCULAR HEMOGLOBIN 28.7 pg (27.0-34.0); MEAN CORPUSCULAR HGB CONC 32.6 g/dL (33.0-35.0); MEAN CORPUSCULAR VOLUME 88.3 fL (80.0-100.0); MEAN PLATELET VOLUME 9.4 fL (7.4-11.0); MONOCYTES # (AUTO) 0.7 x10^3/uL (0.3-0.8); MONOCYTES % (AUTO) 8.8 % (0.0-13.0); NEUTROPHILS # (AUTO) 4.7 x10^3/uL (2.2-4.8); NEUTROPHILS % (AUTO) 58.3 % (42.0-75.0); PLATELET COUNT 223 X10^3/uL (150.0-450.0); RED BLOOD COUNT 3.15 X10^6/uL (3.5-5.4); RED CELL DISTRIBUTION WIDTH 15.1 % (11.6-16.5); WHITE BLOOD COUNT 8.1 X10^3/uL (3.6-10.0)
[2020-07-20 05:34] LABS: CALCIUM 8.8 mg/dL (8.5-10.1); CARBON DIOXIDE 26.3 mmol/L (21-32); COR CA(FOR HYPOALB) 9.6 mg/dL (8.5-10.1); CREATININE 3.58 mg/dL (0.55-1.02); TOTAL PROTEIN 6.7 g/dL (6.4-8.2)
[2020-07-20 05:48] LABS: AMYLASE 62 Units/L (25-115); LIPASE 211 Units/L (73-393)
[2020-07-20] MEDS: APRESOLINE TAB 25 MG PO SCH ×2 (08:55→22:00)
[2020-07-20] MEDS: COREG TAB 3.125 MG PO SCH ×2 (08:55→22:00)
[2020-07-20] MEDS: LOVENOX INJ 30 MG SYR SC SCH (08:55)
[2020-07-20] MEDS: PLAVIX PO SCH (08:56)
[2020-07-20] MEDS: ZESTRIL TAB 10 MG PO SCH (08:56)
[2020-07-20] MEDS: ZOFRAN INJ 4 MG VIAL IVP PRN (08:57)
--- NOTE | 2020-07-20 09:33 | RAD ---
HISTORYACUTE CHRONIC RENAL FAILURESTUDYCHEST, 1 [id number]/03/21FINDINGSThe trachea is midline. The cardiac silhouette is unremarkable. Chronic interstitial lung changes. The lungs are clear without focal infiltrate or effusion. The bony thorax is unremarkable.[No change in positioning of left chest wall MediPort again with the tip terminating at the left brachiocephalic/SVC junction.]IMPRESSIONNo acute cardiopulmonary abnormality or change from prior examination.Electronically signed by: MONTEZ GASTELUM (Jul 20, 2020 09:31:39)
[2020-07-20] MEDS: REMDESIVIR 100 MG in NS 250 ML IV 250 ML IV SCH (13:15)
[2020-07-20] MEDS: XANAX PO PRN ×2 (13:18→22:00)
[2020-07-20] MEDS ORDERED: COLACE CAP 100 MG PO ONE (19:15)
[2020-07-20] MEDS ORDERED: MILK OF MAGNESIA ONE (19:15)
[2020-07-20] MEDS: SNACK - Diabetic Appropriate PO SCH (21:00)
[2020-07-20] MEDS: LIPITOR TAB 40 MG PO SCH (22:00)
[2020-07-20] MEDS: COLACE CAP 100 MG PO SCH (22:00)
[2020-07-20] MEDS: MILK OF MAGNESIA PO SCH (22:06)
[2020-07-21] MEDS: NS 1000 ML 1,000 ML IV SCH ×4 (02:06→22:44)
[2020-07-21] MEDS: BENADRYL INJ 50 MG VIAL IVP PRN ×3 (02:07→21:24)
[2020-07-21] MEDS: DILAUDID INJ IVP PRN ×6 (02:07→21:24)
[2020-07-21 05:04] LABS: ALANINE AMINOTRANSFERASE 21 Units/L (12-78); ALKALINE PHOSPHATASE 92 Units/L (46-116); ASPARTATE AMINO TRANSFERASE 20 Units/L (15-37); BASOPHILS # (AUTO) 0.1 X10^3/uL (0.0-0.1); BASOPHILS % (AUTO) 1.1 % (0.2-1.0); BLOOD UREA NITROGEN 27 mg/dL (7-18); CALCIUM 8.9 mg/dL (8.5-10.1); CARBON DIOXIDE 24.1 mmol/L (21-32); CHLORIDE 104 mmol/L (98-107); COR CA(FOR HYPOALB) 9.7 mg/dL (8.5-10.1); CREATININE 3.11 mg/dL (0.55-1.02); EOSINOPHILS # (AUTO) 0.3 x10^3/uL (0.0-0.2); EOSINOPHILS % (AUTO) 4.2 % (0.9-2.9); HEMOGLOBIN 8.9 g/dL (12.0-16.0); LYMPHOCYTES # (AUTO) 2.6 X10^3/uL (1.3-2.9); LYMPHOCYTES % (AUTO) 31.8 % (21.0-51.0); MEAN CORPUSCULAR HGB CONC 33.1 g/dL (33.0-35.0); MEAN CORPUSCULAR VOLUME 87.6 fL (80.0-100.0); MEAN PLATELET VOLUME 9.1 fL (7.4-11.0); MONOCYTES # (AUTO) 0.7 x10^3/uL (0.3-0.8); MONOCYTES % (AUTO) 9.1 % (0.0-13.0); NEUTROPHILS # (AUTO) 4.3 x10^3/uL (2.2-4.8); NEUTROPHILS % (AUTO) 53.8 % (42.0-75.0); PLATELET COUNT 211 X10^3/uL (150.0-450.0); RED BLOOD COUNT 3.09 X10^6/uL (3.5-5.4); RED CELL DISTRIBUTION WIDTH 14.9 % (11.6-16.5); SODIUM 137 mmol/L (136-145); TOTAL PROTEIN 6.7 g/dL (6.4-8.2); WHITE BLOOD COUNT 8.1 X10^3/uL (3.6-10.0); eGFR NON BLACK RACES 18 (>60)
[2020-07-21] MEDS: XANAX PO PRN ×3 (06:00→21:21)
[2020-07-21] MEDS ORDERED: REMDESIVIR 100 MG in NS 250 ML IV 250 ML IV SCH (09:00)
[2020-07-21] MEDS: REMDESIVIR 100 MG in NS 250 ML IV 250 ML IV SCH (09:25)
[2020-07-21] MEDS: PLAVIX PO SCH (09:26)
[2020-07-21] MEDS: ZESTRIL TAB 10 MG PO SCH (09:26)
[2020-07-21] MEDS: APRESOLINE TAB 25 MG PO SCH ×2 (09:26→21:22)
[2020-07-21] MEDS: COREG TAB 3.125 MG PO SCH ×2 (09:27→21:22)
[2020-07-21] MEDS: LOVENOX INJ 30 MG SYR SC SCH (09:28)
--- NOTE | 2020-07-21 12:02 | PCM.PROG ---
Progress Note Progress Note for Day of Date of Exam: 07/21/20 Subjective Subjective: Pt is a 34 year old female admitted for acute pancreatitis, acute on chronic renal failure, and dehydration. This morning patient reports feeling much better. She is upset because she wants to go home. Discussed with patient that renal function has improved with IVF and if continues to trend down tomorrow can consider possible discharge at that time. Labs/imaging: Wbc 8.1, Hgb 8.9, Plt 211, Na 137, K 4, Creatinine 3.11, Glucose 96, AST 20, ALT 21, ALKP 92. Will continue current treatment plan. Continue to monitor and follow up labs in the morning. Past Medical Family Social History Past Med/Fam/Surg Hx: No changes since H&P Allergies: Allergies Penicillins Allergy (Verified 04/22/20 09:55) Review of Systems ROS: No change since H&P Vital Signs and I&O's Vital Signs: Temperature 98.6 F Pulse Rate [Left Radial] 106 Pulse Rate 97 Respiratory Rate 18 Blood Pressure [Left Arm] 178/91 Blood Pressure [Right Arm] 139/74 Blood Pressure 229/113 O2 Sat by Pulse Oximetry 100 Intake and Output: Intake & Output 07/18/20 07/19/20 07/20/20 07/21/20 23:59 23:59 23:59 23:59 Intake Total 3010 / 3010 5059 / 5059 5572 / 5572 840 / 840 Output Total 1725 / 1725 300 / 300 1200 / 1200 Balance 1285 / 1285 4759 / 4759 5572 / 5572 -360 / -360 Physical Exam Oriented: Normal Eyes: Blurred Vision (CHRONIC) Ear: Normal Nose: Normal Throat: Normal Respiratory: Normal Cardiovascular: Normal : Normal Auscultation: Bowel Sounds: Normal Tenderness: Epigastric Skin: Normal and Decreased Turgur Musculoskeletal: Back:Lumbar and Deformity Psychiatric: Anxiety Affect: Anxious Speech Pattern: Clear and Appropriate Laboratory and Diagnostics Result Diagrams: 07/21/20 04:30 07/21/20 04:30 Labs: Laboratory WBC 8.1 X10^3/uL (3.6-10.0) 07/21/20 04:30 RBC 3.09 X10^6/uL (3.5-5.4) L 07/21/20 04:30 Hgb 8.9 g/dL (12.0-16.0) L 07/21/20 04:30 Hct 27.0 % (36.0-47.0) L 07/21/20 04:30 MCV 87.6 fL (80.0-100.0) 07/21/20 04:30 MCH 29.0 pg (27.0-34.0) 07/21/20 04:30 MCHC 33.1 g/dL (33.0-35.0) 07/21/20 04:30 RDW 14.9 % (11.6-16.5) 07/21/20 04:30 Plt Count 211 X10^3/uL (150.0-450.0) 07/21/20 04:30 MPV 9.1 fL (7.4-11.0) 07/21/20 04:30 Neut % (Auto) 53.8 % (42.0-75.0) 07/21/20 04:30 Lymph % (Auto) 31.8 % (21.0-51.0) 07/21/20 04:30 Harding % (Auto) 9.1 % (0.0-13.0) 07/21/20 04:30 Eos % (Auto) 4.2 % (0.9-2.9) H 07/21/20 04:30 Baso % (Auto) 1.1 % (0.2-1.0) H 07/21/20 04:30 Neut # (Auto) 4.3 x10^3/uL (2.2-4.8) 07/21/20 04:30 Lymph # (Auto) 2.6 X10^3/uL (1.3-2.9) 07/21/20 04:30 Harding # (Auto) 0.7 x10^3/uL (0.3-0.8) 07/21/20 04:30 Eos # (Auto) 0.3 x10^3/uL (0.0-0.2) H 07/21/20 04:30 Baso # (Auto) 0.1 X10^3/uL (0.0-0.1) 07/21/20 04:30 Absolute Nucleated RBC 0.0 /100WBC 07/21/20 04:30 Sample Site Lbra 07/17/20 17:54 ABG pH 7.480 (7.35-7.45) H 07/17/20 17:54 ABG pCO2 44.0 mmHg (35.0-45.0) 07/17/20 17:54 ABG pO2 94.0 mmHg (80.0-100.0) 07/17/20 17:54 ABG HCO3 32.8 mmol/L (22-26) H* 07/17/20 17:54 ABG O2 Saturation 98.0 % (90-100) 07/17/20 17:54 ABG Base Excess 8.3 mmol/L (-2.0-2.0) H 07/17/20 17:54 Felipe Test N/a 07/17/20 17:54 A-a Gradient 1.0 mmHg 07/17/20 17:54 FiO2 21.0 07/17/20 17:54 Blood Gas Comments Pt jagjit well eb 07/17/20 17:54 Sodium 137 mmol/L (136-145) 07/21/20 04:30 Corrected Sodium TNP 07/21/20 04:30 Potassium 4.0 mmol/L (3.5-5.1) 07/21/20 04:30 Chloride 104 mmol/L (98-107) 07/21/20 04:30 Carbon Dioxide 24.1 mmol/L (21-32) 07/21/20 04:30 BUN 27 mg/dL (7-18) H 07/21/20 04:30 Creatinine 3.11 mg/dL (0.55-1.02) H 07/21/20 04:30 Est GFR (MDRD) Af Amer 22 (>60) L 07/21/20 04:30 Est GFR (MDRD) Non-Af 18 (>60) L 07/21/20 04:30 Glucose 96 mg/dL (65-99) 07/21/20 04:30 POC Glucose (mg/dL) 98 mg/dL (65-99) 07/21/20 11:49 Calcium 8.9 mg/dL (8.5-10.1) 07/21/20 04:30 Corrected Calcium 9.7 mg/dL (8.5-10.1) 07/21/20 04:30 Magnesium 2.0 mg/dL (1.7-2.9) 07/19/20 05:35 Ferritin 68 ng/mL (8-252) 07/17/20 14:10 Total Bilirubin 0.20 mg/dL (0.2-1.0) 07/21/20 04:30 AST 20 Units/L (15-37) 07/21/20 04:30 ALT 21 Units/L (12-78) 07/21/20 04:30 Alkaline Phosphatase 92 Units/L (46-116) 07/21/20 04:30 C-Reactive Protein 11.20 mg/L (0-3.0) H 07/20/20 04:05 Total Protein 6.7 g/dL (6.4-8.2) 07/21/20 04:30 Albumin 3.0 g/dL (3.4-5.0) L 07/21/20 04:30 Globulin 3.7 g/dL (2.5-4.5) 07/21/20 04:30 Albumin/Globulin Ratio 0.8 Ratio (1.1-2.1) L 07/21/20 04:30 Amylase 62 Units/L (25-115) 07/20/20 04:05 Lipase 211 Units/L (73-393) 07/20/20 04:05 Specimen Type Clean catch urine 07/17/20 22:35 Urine Color Yellow (YELLOW) 07/17/20 22:35 Urine Appearance Clear (CLEAR) 07/17/20 22:35 Urine pH 7.0 (5.0 - 8.0) 07/17/20 22:35 Ur Specific [place] 1.015 (1.000-1.030) 07/17/20 22:35 Urine Protein 3+ (NEGATIVE) 07/17/20 22:35 Urine Glucose (UA) Negative (NEGATIVE) 07/17/20 22:35 Urine Ketones Negative (NEGATIVE) 07/17/20 22:35 Urine Occult Blood 2+ (NEGATIVE) 07/17/20 22:35 Urine Nitrite Negative (NEGATIVE) 07/17/20 22:35 Urine Bilirubin Negative (NEGATIVE) 07/17/20 22:35 Urine Urobilinogen Normal (NORMAL) 07/17/20 22:35 Ur Leukocyte Esterase 1+ (NEGATIVE) 07/17/20 22:35 Urine RBC 0-2 /HPF (0-3) 07/17/20 22:35 Urine WBC 0-2 /HPF (0-5) 07/17/20 22:35 Ur Squamous Epith Cells Rare /HPF (NEGATIVE) 07/17/20 22:35 Urine Bacteria Negative /HPF (NEGATIVE) 07/17/20 22:35 Ur Culture Indicated? No/not indicated 07/17/20 22:35 Acetone, Semi-Quant Negative (NEGATIVE) 07/17/20 14:10 SARS CoV-2 RNA Rapid JONATHAN Positive (NEGATIVE) A 07/17/20 15:12 Plan (1) Acute pancreatitis: Status: Acute Plan: PAIN AND NAUSEA CONTROL COVID + WO HYPOXIA, CONTINUE TO MONITOR, ISOLATION UNIT REVIEW HOME MEDICATION, BP CONTROL CXR ON ADMISSION, CT ABDPELVIS IN ER ON ADMISSION BS CONTROL, GENTL EI HYDRATION WITH STRICT I&OS (2) Diabetic gastroparesis: Status: Acute (3) Acute dehydration: Status: Acute (4) Acute on chronic renal failure: Status: Acute Qualifiers: Qualified Code(s): N18.9 - Chronic kidney disease, unspecified (5) CAD (coronary artery disease): Status: Chronic (6) Uncontrolled hypertension: Status: Chronic (7) Diabetes mellitus: Status: Chronic Qualifiers: Chronic kidney disease stage: stage 4 (severe) Diabetes mellitus complication detail: with chronic kidney disease Diabetes mellitus complication status: with kidney complications Diabetes mellitus type: type 1 Qualified Code(s): E10.22 - Type 1 diabetes mellitus with diabetic chronic kidney disease; N18.4 - Chronic kidney disease, stage 4 (severe) (8) Chronic kidney disease (CKD): Status: Chronic Qualifiers: Chronic kidney disease stage: stage 3 (moderate) Qualified Code(s): N18.3 - Chronic kidney disease, stage 3 (moderate) (9) Essential hypertension: Status: Chronic
[2020-07-21] MEDS: SNACK - Diabetic Appropriate PO SCH (19:50)
[2020-07-21] MEDS: COLACE CAP 100 MG PO SCH (21:20)
[2020-07-21] MEDS: LIPITOR TAB 40 MG PO SCH (21:21)
[2020-07-21] MEDS: MILK OF MAGNESIA PO SCH (21:23)
[2020-07-22] MEDS: DILAUDID INJ IVP PRN ×3 (01:20→09:06)
[2020-07-22] MEDS: NS 1000 ML 1,000 ML IV SCH ×2 (04:09→07:55)
[2020-07-22] MEDS: ZOFRAN INJ 4 MG VIAL IVP PRN (04:38)
[2020-07-22] MEDS: XANAX PO PRN (05:18)
[2020-07-22] MEDS: BENADRYL INJ 50 MG VIAL IVP PRN (05:19)
[2020-07-22 07:26] LABS: BASOPHILS # (AUTO) 0.1 X10^3/uL (0.0-0.1); BASOPHILS % (AUTO) 1.8 % (0.2-1.0); EOSINOPHILS # (AUTO) 0.3 x10^3/uL (0.0-0.2); EOSINOPHILS % (AUTO) 4.3 % (0.9-2.9); HEMATOCRIT 26.3 % (36.0-47.0); HEMOGLOBIN 8.6 g/dL (12.0-16.0); LYMPHOCYTES # (AUTO) 2.1 X10^3/uL (1.3-2.9); LYMPHOCYTES % (AUTO) 28.7 % (21.0-51.0); MEAN CORPUSCULAR HEMOGLOBIN 28.7 pg (27.0-34.0); MEAN CORPUSCULAR HGB CONC 32.8 g/dL (33.0-35.0); MEAN CORPUSCULAR VOLUME 87.4 fL (80.0-100.0); MEAN PLATELET VOLUME 8.9 fL (7.4-11.0); MONOCYTES # (AUTO) 0.7 x10^3/uL (0.3-0.8); MONOCYTES % (AUTO) 9.1 % (0.0-13.0); NEUTROPHILS # (AUTO) 4.1 x10^3/uL (2.2-4.8); NEUTROPHILS % (AUTO) 56.1 % (42.0-75.0); PLATELET COUNT 227 X10^3/uL (150.0-450.0); RED BLOOD COUNT 3.01 X10^6/uL (3.5-5.4); RED CELL DISTRIBUTION WIDTH 15.1 % (11.6-16.5); WHITE BLOOD COUNT 7.3 X10^3/uL (3.6-10.0)
[2020-07-22 07:33] LABS: ALANINE AMINOTRANSFERASE 23 Units/L (12-78); ALBUMIN 2.9 g/dL (3.4-5.0); ALKALINE PHOSPHATASE 90 Units/L (46-116); ASPARTATE AMINO TRANSFERASE 16 Units/L (15-37); BLOOD UREA NITROGEN 27 mg/dL (7-18); CALCIUM 8.4 mg/dL (8.5-10.1); CARBON DIOXIDE 25.3 mmol/L (21-32); CHLORIDE 105 mmol/L (98-107); COR CA(FOR HYPOALB) 9.3 mg/dL (8.5-10.1); CREATININE 2.92 mg/dL (0.55-1.02); SODIUM 138 mmol/L (136-145); TOTAL PROTEIN 6.5 g/dL (6.4-8.2); eGFR NON BLACK RACES 19 (>60)
[2020-07-22 07:57] LABS: PLATELET MORPHOLOGY COMMENT NORMAL (NORMAL)
[2020-07-22] MEDS: REMDESIVIR 100 MG in NS 250 ML IV 250 ML IV SCH (09:05)
[2020-07-22] MEDS: APRESOLINE TAB 25 MG PO SCH (09:05)
[2020-07-22] MEDS: PLAVIX PO SCH (09:06)
[2020-07-22] MEDS: ZESTRIL TAB 10 MG PO SCH (09:06)
[2020-07-22] MEDS: COREG TAB 3.125 MG PO SCH (09:06)
[2020-07-22 09:07] VITALS: BP 167/88
[2020-07-22] MEDS: LOVENOX INJ 30 MG SYR SC SCH (09:15)
--- NOTE | 2020-07-22 11:08 | W.DIS.FURT ---
Summary of Discharge Discharge Summary of Date Date of Exam: 07/22/20 Admission Date Date of Admission: 07/17/20 Admission Diagnosis Patient Problems (Updated 07/19/20 @ 18:13 by DYLAN JOHNSON) Acute pancreatitis (Acute) K85.90 Diabetic gastroparesis (Acute) E11.43, K31.84 Acute dehydration (Acute) E86.0 Acute pancreatitis (Acute) K85.90 Acute renal failure (ARF) (Acute) N17.9 Acute dehydration (Acute) E86.0 COVID-19 virus detected (Acute) U07.1 Acute on chronic renal failure (Acute) N17.9, N18.9 CAD (coronary artery disease) (Chronic) I25.10 Uncontrolled hypertension (Chronic) I10 Diabetes mellitus (Chronic) E11.9 Chronic kidney disease (CKD) (Chronic) N18.9 Essential hypertension (Chronic) I10 Hospital Course: Pt is a 34 year old female admitted for acute pancreatitis, acute on chronic renal failure, dehydration, COVID-19 positive. Patient's treatment course included pain control and IVF. Pt responded well to treatments and symptoms significantly improved. Labs/imaging: Wbc 7.3, Hgb 8.6, Plt 227, Na 138, K 4, Creatinine 2.92, Glucose 103. Pt renal function continues to improve and creatinine has continued to trend down from 5.87 on admission to now 2.92. Encouraged adequate hydration and taking home medicaitons. Will need follow up with her pcp for repeat labs and monitoring. Pt did test positive for COVID-19 on admission but does not have any respiratory symptoms. Pt was discharged in stable condition and instructed to follow up with pcp in 3-5 days. Vital Signs: Vital Signs (72 hours) 07/19/20 12:00 07/19/20 12:04 07/19/20 12:34 Temperature 98.3 F Pulse Rate Pulse Rate [Left Radial] 92 H Respiratory Rate 14 22 12 Blood Pressure [Left Arm] 187/91 O2 Sat by Pulse Oximetry 07/19/20 16:00 07/19/20 16:22 07/19/20 16:52 Temperature 99.3 F Pulse Rate Pulse Rate [Left Radial] 90 Respiratory Rate 14 18 16 Blood Pressure [Left Arm] 185/89 O2 Sat by Pulse Oximetry 07/19/20 19:55 07/19/20 20:00 07/19/20 20:31 Temperature 97.8 F Pulse Rate 97 H Pulse Rate [Left Radial] 96 H Respiratory Rate 18 18 Blood Pressure [Left Arm] 174/96 O2 Sat by Pulse Oximetry 100 07/19/20 21:01 07/20/20 00:00 07/20/20 00:42 Temperature 98.2 F Pulse Rate Pulse Rate [Left Radial] 89 Respiratory Rate 18 20 18 Blood Pressure [Left Arm] 155/77 O2 Sat by Pulse Oximetry 07/20/20 01:12 07/20/20 04:00 07/20/20 04:44 Temperature 98.0 F Pulse Rate Pulse Rate [Left Radial] 88 Respiratory Rate 18 20 18 Blood Pressure [Left Arm] 159/95 O2 Sat by Pulse Oximetry 99 07/20/20 05:14 07/20/20 08:00 07/20/20 08:57 Temperature 98.6 F Pulse Rate Pulse Rate [Left Radial] 94 H Respiratory Rate 18 18 18 Blood Pressure [Left Arm] 186/98 O2 Sat by Pulse Oximetry 100 07/20/20 09:27 07/20/20 12:00 07/20/20 13:16 Temperature 98.8 F Pulse Rate Pulse Rate [Left Radial] 96 H Respiratory Rate 18 16 20 Blood Pressure [Left Arm] 183/90 O2 Sat by Pulse Oximetry 100 07/20/20 13:46 07/20/20 16:00 07/20/20 18:09 Temperature 97.4 F L Pulse Rate Pulse Rate [Left Radial] 96 H Respiratory Rate 12 24 16 Blood Pressure [Left Arm] 180/87 O2 Sat by Pulse Oximetry 98 07/20/20 18:39 07/20/20 20:00 07/20/20 22:00 Temperature 98.8 F Pulse Rate Pulse Rate [Left Radial] 98 H Respiratory Rate 20 20 20 Blood Pressure [Left Arm] 172/97 O2 Sat by Pulse Oximetry 100 07/20/20 22:30 07/21/20 00:00 07/21/20 02:07 Temperature 97 F L Pulse Rate Pulse Rate [Left Radial] 93 H Respiratory Rate 20 18 20 Blood Pressure [Left Arm] 187/86 O2 Sat by Pulse Oximetry 100 07/21/20 02:37 07/21/20 04:00 07/21/20 06:00 Temperature 97.7 F Pulse Rate Pulse Rate [Left Radial] 92 H Respiratory Rate 20 20 18 Blood Pressure [Left Arm] 171/89 O2 Sat by Pulse Oximetry 97 07/21/20 06:30 07/21/20 08:00 07/21/20 09:47 Temperature 98.6 F Pulse Rate Pulse Rate [Left Radial] 106 H Respiratory Rate 18 18 18 Blood Pressure [Left Arm] 178/91 O2 Sat by Pulse Oximetry 100 07/21/20 10:17 07/21/20 12:00 07/21/20 13:54 Temperature 98.2 F Pulse Rate Pulse Rate [Left Radial] 91 H Respiratory Rate 19 18 18 Blood Pressure [Left Arm] 178/88 O2 Sat by Pulse Oximetry 100 07/21/20 14:24 07/21/20 16:00 07/21/20 17:40 Temperature 98.0 F Pulse Rate Pulse Rate [Left Radial] 92 H Respiratory Rate 19 19 18 Blood Pressure [Left Arm] 186/90 O2 Sat by Pulse Oximetry 100 07/21/20 18:10 07/21/20 20:00 07/21/20 21:24 Temperature 98.9 F Pulse Rate Pulse Rate [Left Radial] 99 H Respiratory Rate 19 20 20 Blood Pressure [Left Arm] 188/98 O2 Sat by Pulse Oximetry 100 07/21/20 21:54 07/21/20 23:46 07/22/20 01:20 Temperature 99 F Pulse Rate Pulse Rate [Left Radial] 89 Respiratory Rate 18 18 18 Blood Pressure [Left Arm] 170/88 O2 Sat by Pulse Oximetry 100 07/22/20 01:50 07/22/20 04:00 07/22/20 05:19 Temperature 98.1 F Pulse Rate Pulse Rate [Left Radial] 92 H Respiratory Rate 16 20 20 Blood Pressure [Left Arm] 179/90 O2 Sat by Pulse Oximetry 100 07/22/20 05:49 07/22/20 08:00 07/22/20 09:06 Temperature 98.1 F Pulse Rate Pulse Rate [Left Radial] 89 Respiratory Rate 18 19 20 Blood Pressure [Left Arm] 167/88 O2 Sat by Pulse Oximetry 100 07/22/20 09:18 Temperature Pulse Rate 93 H Pulse Rate [Left Radial] Respiratory Rate Blood Pressure [Left Arm] O2 Sat by Pulse Oximetry 100 Labs: Laboratory Last Values WBC 7.3 X10^3/uL (3.6-10.0) 07/22/20 07:10 RBC 3.01 X10^6/uL (3.5-5.4) L 07/22/20 07:10 Hgb 8.6 g/dL (12.0-16.0) L 07/22/20 07:10 Hct 26.3 % (36.0-47.0) L 07/22/20 07:10 MCV 87.4 fL (80.0-100.0) 07/22/20 07:10 MCH 28.7 pg (27.0-34.0) 07/22/20 07:10 MCHC 32.8 g/dL (33.0-35.0) L 07/22/20 07:10 RDW 15.1 % (11.6-16.5) 07/22/20 07:10 Plt Count 227 X10^3/uL (150.0-450.0) 07/22/20 07:10 Plt Count Comment Adequate (ADEQUATE) 07/22/20 07:10 MPV 8.9 fL (7.4-11.0) 07/22/20 07:10 Neut % (Auto) 56.1 % (42.0-75.0) 07/22/20 07:10 Lymph % (Auto) 28.7 % (21.0-51.0) 07/22/20 07:10 [place] % (Auto) 9.1 % (0.0-13.0) 07/22/20 07:10 Eos % (Auto) 4.3 % (0.9-2.9) H 07/22/20 07:10 Baso % (Auto) 1.8 % (0.2-1.0) H 07/22/20 07:10 Neut # (Auto) 4.1 x10^3/uL (2.2-4.8) 07/22/20 07:10 Lymph # (Auto) 2.1 X10^3/uL (1.3-2.9) 07/22/20 07:10 [place] # (Auto) 0.7 x10^3/uL (0.3-0.8) 07/22/20 07:10 Eos # (Auto) 0.3 x10^3/uL (0.0-0.2) H 07/22/20 07:10 Baso # (Auto) 0.1 X10^3/uL (0.0-0.1) 07/22/20 07:10 Absolute Nucleated RBC 0.0 /100WBC 07/22/20 07:10 Total Counted 100 07/22/20 07:10 Neutrophils % (Manual) 60 % (39-76) 07/22/20 07:10 Lymphocytes % (Manual) 24 % (13-43) 07/22/20 07:10 Monocytes % (Manual) 11 % (4-9) H 07/22/20 07:10 Eosinophils % (Manual) 5 % (0-6) 07/22/20 07:10 Plt Morphology Comment Normal (NORMAL) 07/22/20 07:10 RBC Morphology Normal (NORMAL) 07/22/20 07:10 Sample Site Lb 07/17/20 17:54 ABG pH 7.480 (7.35-7.45) H 07/17/20 17:54 ABG pCO2 44.0 mmHg (35.0-45.0) 07/17/20 17:54 ABG pO2 94.0 mmHg (80.0-100.0) 07/17/20 17:54 ABG HCO3 32.8 mmol/L (22-26) H* 07/17/20 17:54 ABG O2 Saturation 98.0 % (90-100) 07/17/20 17:54 ABG Base Excess 8.3 mmol/L (-2.0-2.0) H 07/17/20 17:54 Felipe Test N/a 07/17/20 17:54 A-a Gradient 1.0 mmHg 07/17/20 17:54 FiO2 21.0 07/17/20 17:54 Blood Gas Comments Pt jagjit well eb 07/17/20 17:54 Sodium 138 mmol/L (136-145) 07/22/20 07:10 Corrected Sodium TNP 07/22/20 07:10 Potassium 4.0 mmol/L (3.5-5.1) 07/22/20 07:10 Chloride 105 mmol/L (98-107) 07/22/20 07:10 Carbon Dioxide 25.3 mmol/L (21-32) 07/22/20 07:10 BUN 27 mg/dL (7-18) H 07/22/20 07:10 Creatinine 2.92 mg/dL (0.55-1.02) H 07/22/20 07:10 Est GFR (MDRD) Af Amer 24 (>60) L 07/22/20 07:10 Est GFR (MDRD) Non-Af 19 (>60) L 07/22/20 07:10 Glucose 103 mg/dL (65-99) H 07/22/20 07:10 POC Glucose (mg/dL) 80 mg/dL (65-99) 07/22/20 05:44 Calcium 8.4 mg/dL (8.5-10.1) L 07/22/20 07:10 Corrected Calcium 9.3 mg/dL (8.5-10.1) 07/22/20 07:10 Magnesium 2.0 mg/dL (1.7-2.9) 07/19/20 05:35 Ferritin 68 ng/mL (8-252) 07/17/20 14:10 Total Bilirubin 0.10 mg/dL (0.2-1.0) L 07/22/20 07:10 AST 16 Units/L (15-37) 07/22/20 07:10 ALT 23 Units/L (12-78) 07/22/20 07:10 Alkaline Phosphatase 90 Units/L (46-116) 07/22/20 07:10 C-Reactive Protein 11.20 mg/L (0-3.0) H 07/20/20 04:05 Total Protein 6.5 g/dL (6.4-8.2) 07/22/20 07:10 Albumin 2.9 g/dL (3.4-5.0) L 07/22/20 07:10 Globulin 3.6 g/dL (2.5-4.5) 07/22/20 07:10 Albumin/Globulin Ratio 0.8 Ratio (1.1-2.1) L 07/22/20 07:10 Amylase 62 Units/L (25-115) 07/20/20 04:05 Lipase 211 Units/L (73-393) 07/20/20 04:05 Specimen Type Clean catch urine 07/17/20 22:35 Urine Color Yellow (YELLOW) 07/17/20 22:35 Urine Appearance Clear (CLEAR) 07/17/20 22:35 Urine pH 7.0 (5.0 - 8.0) 07/17/20 22:35 Ur Specific Hosmer 1.015 (1.000-1.030) 07/17/20 22:35 Urine Protein 3+ (NEGATIVE) 07/17/20 22:35 Urine Glucose (UA) Negative (NEGATIVE) 07/17/20 22:35 Urine Ketones Negative (NEGATIVE) 07/17/20 22:35 Urine Occult Blood 2+ (NEGATIVE) 07/17/20 22:35 Urine Nitrite Negative (NEGATIVE) 07/17/20 22:35 Urine Bilirubin Negative (NEGATIVE) 07/17/20 22:35 Urine Urobilinogen Normal (NORMAL) 07/17/20 22:35 Ur Leukocyte Esterase 1+ (NEGATIVE) 07/17/20 22:35 Urine RBC 0-2 /HPF (0-3) 07/17/20 22:35 Urine WBC 0-2 /HPF (0-5) 07/17/20 22:35 Ur Squamous Epith Cells Rare /HPF (NEGATIVE) 07/17/20 22:35 Urine Bacteria Negative /HPF (NEGATIVE) 07/17/20 22:35 Ur Culture Indicated? No/not indicated 07/17/20 22:35 Acetone, Semi-Quant Negative (NEGATIVE) 07/17/20 14:10 SARS CoV-2 RNA Rapid JONATHAN Positive (NEGATIVE) A 07/17/20 15:12 Reason For Visit: ACUTE ON CHRONIC RENNAL FAILURE ACUTE DEHYDRATION Discharge Date Discharge Date: 07/22/20 Discharge Diagnosis All Active Problems (Updated 07/19/20 @ 18:13 by DYLAN JOHNSON) Acute pancreatitis (Acute) Diabetic gastroparesis (Acute) Acute pancreatitis (Acute) Nausea & vomiting (Acute) Chronic pancreatitis (Acute) Acute pancreatitis (Acute) Diabetic gastroparesis (Acute) Acute dehydration (Acute) Abdominal pain (Acute) Pancreatitis, acute (Acute) Diabetes mellitus with gastroparesis (Acute) Chronic pancreatitis (Acute) Acute pancreatitis (Acute) Acute renal failure (ARF) (Acute) Acute dehydration (Acute) COVID-19 virus detected (Acute) Acute on chronic renal failure (Acute) Left upper extremity deep vein thrombosis (Acute) Nausea & vomiting (Acute) Abdominal pain (Acute) Intractable abdominal pain (Acute) Intractable nausea and vomiting (Acute) Acute pancreatitis (Acute) Nausea and vomiting in adult patient (Acute) Dehydration (Acute) Diverticulosis of colon (Acute) Gastroparesis (Acute) Acute gastroenteritis (Acute) Hypokalemia (Acute) CAD (coronary artery disease) (Chronic) Uncontrolled hypertension (Chronic) Uncontrolled diabetes mellitus (Chronic) Diabetes mellitus (Chronic) Chronic kidney disease (CKD) (Chronic) Essential hypertension (Chronic) Diabetic nephropathy (Chronic) CKD (chronic kidney disease) stage 4, GFR 15-29 ml/min (Chronic) Cavitary lesion of lung (Chronic) Hx pulmonary embolism (Chronic) Plan of Treatment: Continue with present treatment and follow up plan. Pt is to keep follow up appointment as instructed and take medications as ordered. Discharge Medications Discharge Medications: Penicillins Allergy (Verified 04/22/20 09:55) CONTINUE taking the following medications alprazolam 0.25 mg PO TID PRN 07/18/20 [History] dicyclomine 20 mg PO BID 07/18/20 [History] lisinopril 10 mg PO DAILY 07/18/20 [History] metoclopramide HCl 10 mg PO ACHS 07/18/20 [History] Discharge Disposition Discharge Disposition: Home Discharge Condition: Stable Discharge Plan Discharge Plan Hospital Course: Pt is a 34 year old female admitted for acute pancreatitis, acute on chronic renal failure, dehydration, COVID-19 positive. Patient's treatment course included pain control and IVF. Pt responded well to treatments and symptoms significantly improved. Labs/imaging: Wbc 7.3, Hgb 8.6, Plt 227, Na 138, K 4, Creatinine 2.92, Glucose 103. Pt renal function continues to improve and creatinine has continued to trend down from 5.87 on admission to now 2.92. Encouraged adequate hydration and taking home medicaitons. Will need follow up with her pcp for repeat labs and monitoring. Pt did test positive for COVID-19 on admission but does not have any respiratory symptoms. Pt was discharged in stable condition and instructed to follow up with pcp in 3-5 days. Patient Disposition: 01 HOME, SELF-CARE Condition: Stable Health Concerns: Post Hospitalization: new medications and changes needed to prevent readmission or further decline. Pt educated and given instructions on all concerns. Care Plan Goals: Problem: Alteration in Elimination Goal: Demonstrate appropriate elimination pattern Instructions: Follow provided instructions. Follow up with primary physician as directed. Contact primary care physician or report to the closest Emergency Room if condition worsens. Plan of Treatment: Continue with present treatment and follow up plan. Pt is to keep follow up appointment as instructed and take medications as ordered. Prescriptions: Continued hydralazine 50 mg tablet 50 mg PO BID RF: 0 Levemir U-100 Insulin 100 unit/mL Solution 10 unit SUBCUT BID RF: 0 atorvastatin 40 mg tablet 40 mg PO HS RF: 0 oxycodone-acetaminophen [Percocet] 7.5-325 mg Tablet 1 tab PO BID PRN (Reason: Pain) RF: 0 carvedilol 3.125 mg Tablet 3.125 mg PO BID RF: 0 pantoprazole 40 mg Tablet,Delayed Release (Dr/Ec) 40 mg PO DAILY RF: 0 clopidogrel [Plavix] 75 mg Tablet 75 mg PO DAILY RF: 0 promethazine [Promethegan] 25 mg Suppository 25 mg AK Q6H PRN (Reason: Nausea) Qty: 30 RF: 0 ondansetron HCl [Zofran] 4 mg Tablet 4 mg PO QID PRN (Reason: Nausea) Qty: 30 RF: 0 lisinopril 10 mg tablet 10 mg PO DAILY RF: 0 dicyclomine 20 mg tablet 20 mg PO BID RF: 0 metoclopramide HCl 10 mg tablet 10 mg PO ACHS RF: 0 alprazolam 0.25 mg tablet 0.25 mg PO TID PRN (Reason: Anxiety) RF: 0 Follow ups/Referrals Follow ups/Referrals: KOREY RUDD [Primary Care Provider] - 1 WEEK Instructions Instructions: Dehydration, Adult, [id number], Acute Pancreatitis, [id number], Chronic Kidney Disease, Adult, [id number] Stand Alone Forms: Excuse From Work or School, Precautions for COVID19, Patient Portal, Social Distancing
== END 2020-07-22 13:00 | disposition home or self-care (01) | DRG 177 ==
LOC: ER 12:10 → MED/SURG 16:43
PROVIDERS: ADMIT Internal Medicine; ATTEND Internal Medicine

== ENCOUNTER 2020-09-03 15:27 | Inpatient (IN) ==
[2020-09-03] MEDS ORDERED: REGLAN INJ 10 MG VIAL IVP SCH (17:36)
[2020-09-03] MEDS ORDERED: NS 1000 ML 1,000 ML IV ONE (17:36)
[2020-09-03] MEDS: DILAUDID INJ IVP PRN ×2 (18:25→22:10)
[2020-09-03 18:28] LABS: BASOPHILS # (AUTO) 0.1 X10^3/uL (0.0-0.1); BASOPHILS % (AUTO) 0.6 % (0.2-1.0); EOSINOPHILS # (AUTO) 0.1 x10^3/uL (0.0-0.2); HEMATOCRIT 33.6 % (36.0-47.0); HEMOGLOBIN 11.2 g/dL (12.0-16.0); LYMPHOCYTES # (AUTO) 1.9 X10^3/uL (1.3-2.9); LYMPHOCYTES % (AUTO) 18.1 % (21.0-51.0); MEAN CORPUSCULAR HEMOGLOBIN 29.6 pg (27.0-34.0); MEAN CORPUSCULAR HGB CONC 33.3 g/dL (33.0-35.0); MEAN CORPUSCULAR VOLUME 88.8 fL (80.0-100.0); MEAN PLATELET VOLUME 8.4 fL (7.4-11.0); MONOCYTES # (AUTO) 0.6 x10^3/uL (0.3-0.8); NEUTROPHILS # (AUTO) 7.8 x10^3/uL (2.2-4.8); NEUTROPHILS % (AUTO) 74.3 % (42.0-75.0); PLATELET COUNT 341 X10^3/uL (150.0-450.0); RED BLOOD COUNT 3.79 X10^6/uL (3.5-5.4); RED CELL DISTRIBUTION WIDTH 14.8 % (11.6-16.5); WHITE BLOOD COUNT 10.5 X10^3/uL (3.6-10.0)
[2020-09-03 18:42] LABS: ALANINE AMINOTRANSFERASE 19 Units/L (12-78); ALBUMIN 3.7 g/dL (3.4-5.0); ALKALINE PHOSPHATASE 132 Units/L (46-116); AMYLASE 80 Units/L (25-115); ASPARTATE AMINO TRANSFERASE 12 Units/L (15-37); BLOOD UREA NITROGEN 40 mg/dL (7-18); CALCIUM 9.1 mg/dL (8.5-10.1); CARBON DIOXIDE 34.6 mmol/L (21-32); CHLORIDE 95 mmol/L (98-107); COR NA(FOR HYPERGLY) 139 mmol/L (136-145); CREATININE 5.95 mg/dL (0.55-1.02); LIPASE 170 Units/L (73-393); SODIUM 138 mmol/L (136-145); TOTAL PROTEIN 8.4 g/dL (6.4-8.2); eGFR NON BLACK RACES 9 (>60)
[2020-09-03] MEDS ORDERED: BENADRYL INJ 50 MG VIAL IV PRN (19:25)
[2020-09-03 19:46] LABS: BILIRUBIN,URINE NEGATIVE (NEGATIVE); BLOOD/HEMOGLOBIN,URINE 1+ (NEGATIVE); GLUCOSE, URINE NEGATIVE (NEGATIVE); KETONES,URINE NEGATIVE (NEGATIVE); LEUKOCYTE ESTERASE ,URINE 2+ (NEGATIVE); NITRITES,URINE NEGATIVE (NEGATIVE); PROTEIN,URINE 3+ (NEGATIVE); UROBILINOGEN,URINE NORMAL (NORMAL)
[2020-09-03] MEDS: NS 1000 ML 1,000 ML IV SCH (19:46)
[2020-09-03] MEDS: ZOFRAN INJ 4 MG VIAL IVP PRN (20:01)
[2020-09-03 20:04] LABS: APPEARANCE,URINE CLOUDY (CLEAR); COLOR,URINE STRAW (YELLOW); RBC,URINE 0-2 /HPF (0-3); SQUAMOUS EPITHELIAL CELL,UR MANY /HPF (NEGATIVE)
[2020-09-03 20:05] LABS: BACTERIA,URINE TRACE /HPF (NEGATIVE); MUCUS,URINE FEW /HPF (NEGATIVE)
--- NOTE | 2020-09-03 21:01 | RAD ---
ACUTE ABDOMEN SERIESHISTORY:PAINStudy: Frontal view of the chest, flat and upright views of the abdomenComparison:NoneFindings:Cardiomediastinal silhouette is normal in size .No focal consolidations, pleural effusions or pneumothorax.Flat and upright views of the abdomen demonstrates a normal bowel gas pattern.No free air..No abnormal calcifications or abnormal soft tissue shadows. No acute bony abnormalities.IMPRESSION:1. No acute cardiopulmonary disease.2. No evidence for acute abdominal pathology.Electronically signed by: GRZEGORZ PLASENCIA (Sep 03, 2020 20:58:22)
[2020-09-03] MEDS: PROTONIX INJ 40 MG VIAL IVP SCH (21:10)
[2020-09-03] MEDS: REGLAN INJ 10 MG VIAL IVP SCH (21:10)
[2020-09-04] MEDS: ZOFRAN INJ 4 MG VIAL IVP PRN (01:27)
[2020-09-04] MEDS: DILAUDID INJ IVP PRN ×3 (01:51→17:26)
[2020-09-04] MEDS: NS 1000 ML 1,000 ML IV SCH ×3 (02:37→15:01)
[2020-09-04] MEDS: REGLAN INJ 10 MG VIAL IVP SCH (02:38)
[2020-09-04] MEDS ORDERED: D50W ABBOJECT SYR IV ONE (05:17)
[2020-09-04] MEDS ORDERED: D50W ABBOJECT SYR ONE (05:19)
[2020-09-04 06:02] LABS: BASOPHILS # (AUTO) 0.1 X10^3/uL (0.0-0.1); BASOPHILS % (AUTO) 0.6 % (0.2-1.0); EOSINOPHILS # (AUTO) 0.3 x10^3/uL (0.0-0.2); EOSINOPHILS % (AUTO) 2.7 % (0.9-2.9); HEMATOCRIT 27.6 % (36.0-47.0); HEMOGLOBIN 8.9 g/dL (12.0-16.0); LYMPHOCYTES # (AUTO) 4.2 X10^3/uL (1.3-2.9); LYMPHOCYTES % (AUTO) 34.3 % (21.0-51.0); MEAN CORPUSCULAR HEMOGLOBIN 28.8 pg (27.0-34.0); MEAN CORPUSCULAR HGB CONC 32.4 g/dL (33.0-35.0); MEAN CORPUSCULAR VOLUME 88.8 fL (80.0-100.0); MEAN PLATELET VOLUME 8.5 fL (7.4-11.0); NEUTROPHILS # (AUTO) 6.6 x10^3/uL (2.2-4.8); NEUTROPHILS % (AUTO) 54.4 % (42.0-75.0); PLATELET COUNT 269 X10^3/uL (150.0-450.0); RED BLOOD COUNT 3.11 X10^6/uL (3.5-5.4); RED CELL DISTRIBUTION WIDTH 14.4 % (11.6-16.5); WHITE BLOOD COUNT 12.1 X10^3/uL (3.6-10.0)
[2020-09-04 06:18] LABS: ALANINE AMINOTRANSFERASE 19 Units/L (12-78); ALBUMIN 3.1 g/dL (3.4-5.0); ALKALINE PHOSPHATASE 110 Units/L (46-116); ASPARTATE AMINO TRANSFERASE 13 Units/L (15-37); BLOOD UREA NITROGEN 38 mg/dL (7-18); CALCIUM 8.5 mg/dL (8.5-10.1); CARBON DIOXIDE 32.7 mmol/L (21-32); CHLORIDE 98 mmol/L (98-107); COR CA(FOR HYPOALB) 9.2 mg/dL (8.5-10.1); CREATININE 5.53 mg/dL (0.55-1.02); SODIUM 138 mmol/L (136-145); TOTAL PROTEIN 6.9 g/dL (6.4-8.2); eGFR NON BLACK RACES 9 (>60)
[2020-09-04] MEDS ORDERED: REGLAN INJ 10 MG VIAL IVP PRN (08:47)
[2020-09-04] MEDS: PROTONIX INJ 40 MG VIAL IVP SCH ×2 (09:13→20:58)
[2020-09-04] MEDS ORDERED: PERCOCET TAB 5/325 MG PO PRN (13:11)
[2020-09-04] MEDS: ZOFRAN TAB 4 MG PO SCH ×2 (13:49→20:58)
[2020-09-04] MEDS: XANAX PO PRN ×2 (13:50→21:47)
[2020-09-04] MEDS ORDERED: PLAVIX PO SCH (14:00)
[2020-09-04 17:02] VITALS: BMI 27.3
--- NOTE | 2020-09-04 17:50 | DR.H&P ---
H&P - History & Physical for Day of: H&P Date: 09/03/20 - Chief Complaint Chief Complaint: abdominal pain, N/V - History of Present Illness History of Present Illness: PT IS 35 FM WITH CO ABDOMINAL PAIN, N/V SINCE ONE WEEK. PT STATES SHE WAS IN HOSPITAL IN [place] FOR 2 DAYS AND FELT BETTER, THEN COMPLICATIONS RETURNED. PT HAS MH OF CRF, DM, CAD, HTN, OA, BLINDNESS. PT HAS PMH OF GASTROPARESIS AND PACREATITIS. PT ADMITTED FOR TREATMENT OF ACUTE ILLNESS, ACUTE ON CHRONIC RENAL FAILURE - Past Medical History Past Medical History: Coronary Artery Disease, Hypertension, Dyslipidemia, Diabetes, Renal Disease, Depression, Anxiety, PUD, GERD, Arthritis Additional Medical History: MORBID OBESITY, Pancreatitis, gastroparesis, osteomyelitis - Past Surgical History Surgical History: Cholecystectomy, Hysterectomy, Other Additional Surgical History: BKA - Family History Family Medical History: Diabetes Mellitus, Coronary Artery Disease - Social History Does patient currently use any type of tobacco product: No Have you used tobacco products in the last 12 months: No Type of Tobacco Use: None Does any household member use tobacco: No Alcohol Use: None Drug Use: None - Medications Home Medications: Penicillins Allergy (Verified 04/22/20 09:55) CONTINUE taking the following medications alprazolam 0.5 mg PO TID PRN 09/04/20 [History] aripiprazole 5 mg PO BID 09/04/20 [History] bupropion HCl 100 mg PO BID 09/04/20 [History] gabapentin 100 mg PO BID 09/04/20 [History] insulin glargine [Lantus U-100 Insulin] 10 unit SUBCUT BID 09/04/20 [History] lactulose 30 ml PO DAILY 09/04/20 [History] ondansetron 8 mg PO BID 09/04/20 [History] venlafaxine 75 mg PO DAILY 09/04/20 [History] - Review of Systems Constitutional: Weakness Eyes: No Symptoms Reported ENT: No Symptoms Reported Respiratory: No Symptoms Reported Cardiovascular: No Symptoms Reported Gastrointestinal: See HPI, Nausea, Vomiting, Abdominal Pain Genitourinary: No Symptoms Reported Musculoskeletal: No Symptoms Reported Skin: Other (DIFFUSE DRY SKIN) Neurological: Weakness - Physical Exam Vital Signs: Temperature 98.0 F Pulse Rate [Bilateral Radial] 92 Respiratory Rate 18 Blood Pressure [Right Arm] 147/74 Blood Pressure [Left Arm] 184/95 O2 Sat by Pulse Oximetry 100 Oriented: Normal Eyes: Normal Ear: Normal Nose: Normal Throat: Normal Respiratory: RLL Diminished, LLL Diminished, RLL Absent Cardiovascular: Normal : Normal Auscultation: Bowel Sounds: Normal Palpation: Normal Tenderness: Diffuse, Epigastric Skin: Decreased Turgur Musculoskeletal: Back:Lumbar, Deformity Psychiatric: Anxiety Mood Description: Calm Speech Pattern: Clear, Appropriate - Assessment/Plan (1) Diabetic gastroparesis Status: Acute Plan: ADMIT, IV HYDRATION. STRICT I&OS. BP AND BS CONTROL. CONFIRM HOME MEDICATION, CARDIAC MONITORING. ABD SERIES ON ADMISSION, AMYLASE AND LIPASE ON ADMISSION (2) Nausea & vomiting Qualifiers: Vomiting type: unspecified Vomiting Intractability: non-intractable Qualified Code(s): R11.2 - Nausea with vomiting, unspecified Status: Acute (3) Chronic pancreatitis Qualifiers: Pancreatitis type: unspecified pancreatitis type Qualified Code(s): K86.1 - Other chronic pancreatitis Status: Acute (4) Hypokalemia Status: Acute (5) CAD (coronary artery disease) Qualifiers: Status: Chronic (6) Uncontrolled hypertension Status: Chronic (7) Uncontrolled diabetes mellitus Qualifiers: Diabetes mellitus type: due to underlying condition Glycemic state: with hyperglycemia Qualified Code(s): E08.65 - Diabetes mellitus due to underlying condition with hyperglycemia Status: Chronic - Allergies Allergies/Adverse Reactions: Allergies Allergy/AdvReac Type Severity Reaction Status Date / Time Penicillins Allergy Verified 04/22/20 09:55
[2020-09-04] MEDS: COREG TAB 3.125 MG PO SCH (20:57)
[2020-09-05] MEDS: DILAUDID INJ IVP PRN ×3 (01:09→16:35)
[2020-09-05] MEDS: NS 1000 ML 1,000 ML IV SCH ×3 (01:44→18:24)
[2020-09-05 06:11] LABS: BASOPHILS # (AUTO) 0.1 X10^3/uL (0.0-0.1); BASOPHILS % (AUTO) 1.1 % (0.2-1.0); EOSINOPHILS # (AUTO) 0.3 x10^3/uL (0.0-0.2); EOSINOPHILS % (AUTO) 3.7 % (0.9-2.9); HEMOGLOBIN 8.7 g/dL (12.0-16.0); LYMPHOCYTES # (AUTO) 2.7 X10^3/uL (1.3-2.9); LYMPHOCYTES % (AUTO) 31.7 % (21.0-51.0); MEAN CORPUSCULAR HEMOGLOBIN 29.6 pg (27.0-34.0); MEAN CORPUSCULAR HGB CONC 33.5 g/dL (33.0-35.0); MEAN CORPUSCULAR VOLUME 88.5 fL (80.0-100.0); MEAN PLATELET VOLUME 8.8 fL (7.4-11.0); MONOCYTES # (AUTO) 0.7 x10^3/uL (0.3-0.8); MONOCYTES % (AUTO) 7.9 % (0.0-13.0); NEUTROPHILS # (AUTO) 4.7 x10^3/uL (2.2-4.8); NEUTROPHILS % (AUTO) 55.6 % (42.0-75.0); PLATELET COUNT 229 X10^3/uL (150.0-450.0); RED BLOOD COUNT 2.94 X10^6/uL (3.5-5.4); RED CELL DISTRIBUTION WIDTH 14.4 % (11.6-16.5); WHITE BLOOD COUNT 8.4 X10^3/uL (3.6-10.0)
[2020-09-05 06:21] LABS: ALBUMIN 2.8 g/dL (3.4-5.0); CARBON DIOXIDE 28.6 mmol/L (21-32); CREATININE 4.77 mg/dL (0.55-1.02); TOTAL PROTEIN 6.5 g/dL (6.4-8.2)
[2020-09-05] MEDS: COREG TAB 3.125 MG PO SCH ×2 (08:23→20:40)
[2020-09-05] MEDS: ZESTRIL TAB 10 MG PO SCH (08:23)
[2020-09-05] MEDS: ZOFRAN TAB 4 MG PO SCH ×2 (08:23→20:45)
[2020-09-05] MEDS: PROTONIX INJ 40 MG VIAL IVP SCH ×2 (08:25→20:45)
--- NOTE | 2020-09-05 11:19 | RAD ---
HISTORYABD PAIN CAD, HTN, DM, RENAL DISEASE, GERD, GB, HYST, AMPUTEESTUDYKUBCOMPARISONAbdominal film November 04, 2019.FINDINGSEvaluation of the abdomen demonstrates a normal bowel gas pattern. Surgical clips are seen the right upper quadrant probably from cholecystectomy. Three phleboliths are seen in the right pelvis unchanged from the prior study November 04, 2019. No pathological soft tissue mass or calcification can be observed. The bony structures are grossly intact.IMPRESSIONNo evidence for acute abdominal pathology identified. There is no significant interval change compared to the abdominal film November 04, 2019.Electronically signed by: ALISSON MENDES (Sep 05, 2020 11:17:37)
[2020-09-05] MEDS: XANAX PO PRN (14:47)
[2020-09-06] MEDS: XANAX PO PRN ×2 (00:16→08:54)
[2020-09-06] MEDS: DILAUDID INJ IVP PRN ×3 (00:16→16:59)
[2020-09-06] MEDS: NS 1000 ML 1,000 ML IV SCH ×3 (03:00→14:44)
[2020-09-06 06:08] LABS: BASOPHILS % (AUTO) 0.7 % (0.2-1.0); EOSINOPHILS # (AUTO) 0.3 x10^3/uL (0.0-0.2); EOSINOPHILS % (AUTO) 3.5 % (0.9-2.9); HEMATOCRIT 23.2 % (36.0-47.0); HEMOGLOBIN 7.8 g/dL (12.0-16.0); LYMPHOCYTES # (AUTO) 2.5 X10^3/uL (1.3-2.9); LYMPHOCYTES % (AUTO) 32.9 % (21.0-51.0); MEAN CORPUSCULAR HGB CONC 33.6 g/dL (33.0-35.0); MEAN CORPUSCULAR VOLUME 89.2 fL (80.0-100.0); MEAN PLATELET VOLUME 8.8 fL (7.4-11.0); MONOCYTES # (AUTO) 0.5 x10^3/uL (0.3-0.8); MONOCYTES % (AUTO) 6.8 % (0.0-13.0); NEUTROPHILS # (AUTO) 4.2 x10^3/uL (2.2-4.8); NEUTROPHILS % (AUTO) 56.1 % (42.0-75.0); PLATELET COUNT 203 X10^3/uL (150.0-450.0); RED CELL DISTRIBUTION WIDTH 14.3 % (11.6-16.5); WHITE BLOOD COUNT 7.4 X10^3/uL (3.6-10.0)
[2020-09-06 06:15] LABS: ALANINE AMINOTRANSFERASE 14 Units/L (12-78); ALBUMIN 2.6 g/dL (3.4-5.0); ALKALINE PHOSPHATASE 88 Units/L (46-116); ASPARTATE AMINO TRANSFERASE 12 Units/L (15-37); BLOOD UREA NITROGEN 29 mg/dL (7-18); CALCIUM 7.6 mg/dL (8.5-10.1); CARBON DIOXIDE 26.7 mmol/L (21-32); CHLORIDE 106 mmol/L (98-107); COR CA(FOR HYPOALB) 8.7 mg/dL (8.5-10.1); CREATININE 4.25 mg/dL (0.55-1.02); SODIUM 143 mmol/L (136-145); TOTAL PROTEIN 5.9 g/dL (6.4-8.2); eGFR NON BLACK RACES 13 (>60)
[2020-09-06] MEDS: COREG TAB 3.125 MG PO SCH ×2 (08:51→21:25)
[2020-09-06] MEDS: ZESTRIL TAB 10 MG PO SCH (08:51)
[2020-09-06] MEDS: PROTONIX INJ 40 MG VIAL IVP SCH ×2 (08:52→21:25)
[2020-09-06] MEDS: ZOFRAN TAB 4 MG PO SCH ×2 (08:55→21:26)
[2020-09-06] MEDS ORDERED: PERCOCET TAB 5/325 MG PO PRN (09:27)
[2020-09-06] MEDS: ABILIFY PO SCH ×2 (10:50→21:25)
[2020-09-06] MEDS: EFFEXOR XR 75 MG CAP 24-HR PO SCH (10:50)
[2020-09-06] MEDS: NEURONTIN CAP 100 MG PO SCH ×2 (10:50→21:26)
[2020-09-06] MEDS: WELLBUTRIN IR (PLAIN) PO SCH (21:25)
[2020-09-07] MEDS: NS 1000 ML 1,000 ML IV SCH ×3 (00:30→11:07)
[2020-09-07] MEDS: XANAX PO PRN ×2 (00:57→08:26)
[2020-09-07] MEDS: DILAUDID INJ IVP PRN (00:58)
[2020-09-07] MEDS: ZOFRAN INJ 4 MG VIAL IVP PRN (02:05)
[2020-09-07 06:16] LABS: BASOPHILS % (AUTO) 0.4 % (0.2-1.0); EOSINOPHILS # (AUTO) 0.3 x10^3/uL (0.0-0.2); HEMATOCRIT 25.1 % (36.0-47.0); HEMOGLOBIN 8.5 g/dL (12.0-16.0); LYMPHOCYTES # (AUTO) 1.9 X10^3/uL (1.3-2.9); LYMPHOCYTES % (AUTO) 25.4 % (21.0-51.0); MEAN CORPUSCULAR HEMOGLOBIN 30.1 pg (27.0-34.0); MEAN CORPUSCULAR HGB CONC 33.9 g/dL (33.0-35.0); MEAN CORPUSCULAR VOLUME 88.8 fL (80.0-100.0); MEAN PLATELET VOLUME 8.9 fL (7.4-11.0); MONOCYTES # (AUTO) 0.5 x10^3/uL (0.3-0.8); MONOCYTES % (AUTO) 6.9 % (0.0-13.0); NEUTROPHILS # (AUTO) 4.7 x10^3/uL (2.2-4.8); NEUTROPHILS % (AUTO) 63.3 % (42.0-75.0); PLATELET COUNT 224 X10^3/uL (150.0-450.0); RED BLOOD COUNT 2.82 X10^6/uL (3.5-5.4); RED CELL DISTRIBUTION WIDTH 14.4 % (11.6-16.5); WHITE BLOOD COUNT 7.4 X10^3/uL (3.6-10.0)
[2020-09-07 06:28] LABS: ALANINE AMINOTRANSFERASE 17 Units/L (12-78); ALBUMIN 2.9 g/dL (3.4-5.0); ALKALINE PHOSPHATASE 95 Units/L (46-116); ASPARTATE AMINO TRANSFERASE 13 Units/L (15-37); BLOOD UREA NITROGEN 29 mg/dL (7-18); CALCIUM 8.2 mg/dL (8.5-10.1); CARBON DIOXIDE 25.7 mmol/L (21-32); CHLORIDE 104 mmol/L (98-107); COR CA(FOR HYPOALB) 9.1 mg/dL (8.5-10.1); CREATININE 3.81 mg/dL (0.55-1.02); SODIUM 140 mmol/L (136-145); TOTAL PROTEIN 6.6 g/dL (6.4-8.2); eGFR NON BLACK RACES 14 (>60)
[2020-09-07 08:22] VITALS: BP 183/87
[2020-09-07] MEDS: EFFEXOR XR 75 MG CAP 24-HR PO SCH (08:23)
[2020-09-07] MEDS: ABILIFY PO SCH (08:23)
[2020-09-07] MEDS: ZESTRIL TAB 10 MG PO SCH (08:23)
[2020-09-07] MEDS: WELLBUTRIN IR (PLAIN) PO SCH (08:23)
[2020-09-07] MEDS: PROTONIX INJ 40 MG VIAL IVP SCH (08:23)
[2020-09-07] MEDS: COREG TAB 3.125 MG PO SCH (08:23)
[2020-09-07] MEDS: NEURONTIN CAP 100 MG PO SCH (08:23)
[2020-09-07] MEDS: ZOFRAN TAB 4 MG PO SCH (08:24)
== END 2020-09-07 11:45 | disposition home or self-care (01) | DRG 74 ==
LOC: MED/SURG → OBSVTOIN 16:21
PROVIDERS: ADMIT Internal Medicine; ATTEND Internal Medicine
DX: E86.0 Dehydration; K86.1 Other chronic pancreatitis; N17.8 Other acute kidney failure; R11.2 Nausea with vomiting, unspecified; I95.89 Other hypotension; E11.43 Type 2 diabetes mellitus with diabetic autonomic (poly)neuropathy; I12.9 Hypertensive chronic kidney disease with stage 1 through stage 4 chronic kidney disease, or unspecified chronic kidney disease; Z20.822 Contact with and (suspected) exposure to COVID-19; F41.8 Other specified anxiety disorders; M19.90 Unspecified osteoarthritis, unspecified site; N18.9 Chronic kidney disease, unspecified; E87.6 Hypokalemia; K31.84 Gastroparesis; R10.84 Generalized abdominal pain; I25.10 Atherosclerotic heart disease of native coronary artery without angina pectoris